=== PATIENT | male | born 1940 | race Caucasian/White ===

== ENCOUNTER 2018-01-02 23:12 | Emergency (ER) | payer MEDICARE, OTHER, SELFPAY ==
[2018-01-02 23:15] VITALS: BP 126/68; PULSE 48; RESP 16; TEMP 36.3; O2SAT 99; BMI 23.8
--- NOTE | 2018-01-02 23:44 | ED.DCSUM_ITS ---
- ER Visit Summary Date of Service: 01/02/18 Chief Complaint: Rash History of Present Illness: The patient is a 77 M who presents with rash located on thighs, legs, groin and pubic region. He states is slightly pruritic. He denies history of being in a hot tub. He states he has been in the hot sun. He denies fever, chills night sweats. He does have history of type 2 diabetes. He denies prior history of such rash. He has actually no other complaints please read written note. Physical Examination: Vital signs are unremarkable. Patient appears no distress. HEENT is grossly unremarkable. Heart is regular. There is no respiratory distress. Patient has rash consistent with folliculitis. Test Results: None are indicated Emergency Department Course and Treatment: Patient was informed that he has an infection of his hair follicles. Since it is involving both lower extremities groin and pubic area he was treated with dicloxacillin for strep and staph coverage. Treatment Plan: Prescription for dicloxacillin Disposition: Discharged to home with appropriate home-going instructions Impression: Folliculitis This note was generated with [employer] dictation software. It may contain incorrect words, spelling, and punctuation that were not noted in review of the chart prior to signing ED Disposition - Plan for ED Patient: Disposition: Home or Assisted Living Chief Complaint: Rash Instructions: ED Folliculitis Prescriptions: Dicloxacillin Sodium 500 mg PO Q6H 7 Days cap Referrals: NOT,DEFINED [Primary Care Provider] -
[2018-01-03 00:12] VITALS: PULSE 61
== END 2018-01-03 00:13 | disposition home or self-care (01) ==
PROVIDERS: Emergency Provider Emergency Medicine
DX: L73.9 Follicular disorder, unspecified (principal); E11.9 Type 2 diabetes mellitus without complications; Z79.84 Long term (current) use of oral hypoglycemic drugs; Z79.82 Long term (current) use of aspirin; Z79.899 Other long term (current) drug therapy; Z87.891 Personal history of nicotine dependence
CPT/HCPCS: 99283

== ENCOUNTER 2018-04-08 11:35 | Emergency (ER) | payer MEDICARE, OTHER, SELFPAY ==
[2018-04-08 11:36] VITALS: BP 133/60; PULSE 45; RESP 12; TEMP 36.4; O2SAT 98; BMI 23.9
--- NOTE | 2018-04-08 12:10 | RAD_ITS ---
STUDY: X-RAY - LEFT FEMUR REASON FOR STUDY: Pain, status post near fall on Sunday. TECHNIQUE: Radiological exam, femur, minimum 2 views COMPARISON: None. FINDINGS: Normal visualized femur. There is chondrocalcinosis in the left hip and left knee. There is vascular calcification. RAD/Femur Min 2 Views IMPRESSION: Chondrocalcinosis. No demonstrated fracture. Electronically Signed: Nick Bowden MD at 13:06 EDT Tel , Service support ,
--- NOTE | 2018-04-08 13:26 | ED.DCSUM_ITS ---
- ER Visit Summary Date of Service: 04/08/18 Chief Complaint: Left thigh pain History of Present Illness: The patient is a 77 M who had a near fall last evening. Patient states that he pulled a tree over. He got out of his vehicle with a hatchet to cut the roots and tripped. He had a near fall and felt a pulling sensation in the posterior left thigh. He denies pain radiating down the lower part of the leg. He denies paresthesias. Physical Examination: Vital signs gross unremarkable. He is bradycardic with a heart rate of 45. Head and neck examination unremarkable. Heart is regular rate and rhythm. Lung sounds are clear. Abdomen is soft nontender. Lower external examination was muscular tenderness in the posterior proximal left thigh. He does have increased pain with flexion extension of the hip but very minimal to no pain with logroll. There is no tenderness over the knee or lower leg. He has strong distal pulses. Test Results: Left femur x-rays show no fracture. There is evidence of chondrocalcinosis. Emergency Department Course and Treatment: Patient declined anything for pain here. Dayday wrap was applied around the leg. I have discussed with the patient I believe he has a muscle strain or tear. Treatment Plan: [] Disposition: Discharge Impression: Muscle strain left thigh This note was generated with [employer] dictation software. It may contain incorrect words, spelling, and punctuation that were not noted in review of the chart prior to signing ED Disposition - Plan for ED Patient: Disposition: Home or Assisted Living Chief Complaint: Lower Extremity Injury Instructions: ED Strain Muscle Ext Referrals: Jude Ribeiro MD [NON-STAFF] -
[2018-04-08 13:42] VITALS: BP 140/74; PULSE 50; RESP 16; O2SAT 97
== END 2018-04-08 13:49 | disposition home or self-care (01) ==
PROVIDERS: Emergency Provider Emergency Medicine
DX: S76.912A Strain of unspecified muscles, fascia and tendons at thigh level, left thigh, initial encounter (principal); W18.49XA Other slipping, tripping and stumbling without falling, initial encounter; Y93.89 Activity, other specified; Y92.9 Unspecified place or not applicable; Y99.9 Unspecified external cause status; G47.33 Obstructive sleep apnea (adult) (pediatric); I25.2 Old myocardial infarction; Z87.891 Personal history of nicotine dependence; Z79.84 Long term (current) use of oral hypoglycemic drugs; Z79.82 Long term (current) use of aspirin; Z79.899 Other long term (current) drug therapy
CPT/HCPCS: 73552; 99282

== ENCOUNTER → 2020-06-24 13:32 | Outpatient (CLI) | payer MEDICARE, OTHER, SELFPAY ==
[2020-06-09 08:48] VITALS: BMI 23.6
== END ==
PROVIDERS: PCP Family Medicine; Visit Provider Nurse Practitioner Adult Health
DX: N40.3 Nodular prostate with lower urinary tract symptoms (principal)
CPT/HCPCS: 36415; 84153

== ENCOUNTER → 2020-07-26 | Outpatient (CLI) | payer MEDICARE, SELFPAY ==
[2020-06-09 08:48] VITALS: BMI 23.6
--- NOTE | 2020-07-26 08:00 | PROSB_PTH ---
PATIENT: PHILIP KEVIN LOC: [facility] U#:[id number] AGE/SX: 79/M ROOM: RE07/26/[address]: Dr. Ahsan Dai MD : [id number] BED: DIS: 07/26/2020 SPEC #: [id number] RECD: 07/26/20 12:24 STATUS: ASHLY FELICIANO #: [id number] MARTÍN: 07/26/20 08:[address]: Ahsan Dai DEPT: SURGICAL PATHOLOGY RECD BY: Aurelia Redmond ENTERED: 07/26/20 13:10 SP TYPE: PROST BX OTHR DR: Dr. Jude Ribeiro MD Tissues: A - Prostate, NOS B - PROSTATE BIOPSY Procedures: Surgery Specimen Level IV HEADER OPERATION: Prostate biopsy PRE-OP DIAGNOSIS: Elevated PSA TISSUE SUBMITTED: A - Right mid, B - Right base MICROSCOPIC DIAGNOSIS A. Prostate, right mid, core biopsy: Adenocarcinoma. [place] grade: 9 (5+4) Cores involved: 2 out of 2 cores Tissue involved: 85% Greatest tumor length: 10 mm Perineural invasion: Present, multifocal. B. Prostate, right base, core biopsy: Adenocarcinoma. [place] grade: 9 (4+5) Cores involved: 3 out of 3 cores Tissue involved: 95% Greatest tumor length: 12.5 mm Perineural invasion: Present, multifocal. AM:remy 07/27/2020 COMMENT Case has been reviewed in consultation with Dr. Lamas who concurs with the above diagnosis. IDC:SJ MICROSCOPIC DESCRIPTION Slides are reviewed. GROSS DESCRIPTION A - Received in fixative is one container labeled with the patient's name and designated right mid prostate. The specimen consists of two elongated fragments of light padilla-white soft tissue measuring 1 and 1.6 cm in length and 0.1 cm in diameter. The specimen is totally submitted in one cassette. B - Received in fixative is one container labeled with the patient's name and designated right base prostate. The specimen consists of three elongated fragments of light padilla-white soft tissue measuring 0.7 to 1.5 cm in length and 0.1 cm in diameter. The specimen is totally submitted in one cassette. / EMELI:remy 07/26/20 TC:0 CPT: G0146
== END | disposition home or self-care (01) ==
LOC: LABSPEC 13:06
PROVIDERS: PCP Family Medicine; Referring Provider Urology; Visit Provider Urology
DX: R97.20 Elevated prostate specific antigen [PSA] (principal)
CPT/HCPCS: 88305

== ENCOUNTER → 2020-08-03 16:08 | Outpatient (CLI) | payer MEDICARE, SELFPAY ==
[2020-06-09 08:48] VITALS: BMI 23.6
--- NOTE | 2020-08-03 16:19 | CT_ITS ---
STUDY: CT ABDOMEN AND PELVIS WITH CONTRAST REASON FOR EXAM: Male, 79 years old. NEW DX PROSTATE CA -- DIFFICULTY URINATING X2 YEARS -- SURG-HERNIA -- HX- WI W/ ANGIOPLASTY RADIATION DOSAGE (If Supplied By Facility): CTDIvol = ( 18.71 ) mGy, DLP = ( 668.02 ) mGycm TECHNIQUE: Transaxial images were obtained from the dome of the diaphragm to the symphysis pubis without oral contrast. IV 100mL Isovue-370 was administered. Sagittal and coronal images were reconstructed. Individualized dose optimization techniques were used for this CT. COMPARISON: None. FINDINGS: The visualized lung bases are unremarkable. The visualized portions of the heart are within normal limits. Subcentimeter cyst in the posterior segment the right lobe of the liver. Normal gallbladder and extrahepatic biliary system. Normal spleen. Normal pancreas. Normal bilateral adrenal glands. Normal right kidney. Normal left kidney. Normal visualized stomach. Normal small intestine. Normal colon. There is non-visualization of the appendix. There is diffuse atherosclerotic calcification of the abdominal aorta, without a demonstrated aneurysm. Normal inferior vena cava. Normal retroperitoneum. Normal urinary bladder. Normal abdominal wall. Moderate levoscoliosis of the lumbar spine with degenerative disc disease. CT/Abdomen/Pelvis WITH Contrast IMPRESSION: Normal enhanced CT of the abdomen and pelvis. Electronically Signed: Evans Kelley MD at 17:24 EST Tel , Service support ,
[2020-08-03 16:51] LABS: CREATININE FINGERSTICK 1.2 mg/dL (0.70-1.30)
== END ==
PROVIDERS: PCP Family Medicine; Referring Provider Urology; Visit Provider Urology
DX: C61 Malignant neoplasm of prostate (principal)
CPT/HCPCS: 74177; Q9967

== ENCOUNTER → 2020-08-06 09:59 | Outpatient (CLI) | payer MEDICARE, SELFPAY ==
[2020-06-09 08:48] VITALS: BMI 23.6
--- NOTE | 2020-08-06 10:06 | NM_ITS ---
CLINICAL: 79-year-old male with reported history of carcinoma of the prostate. WHOLE BODY 99m Tc MDP RADIONUCLIDE BONE SCINTIGRAPHY COMPARISON: CT of the abdomen-pelvis report 08/03/2020 FINDINGS: Following the intravenous administration of 26.0 mCi of 99m Tc MDP, whole body bone images reveal: 1. Increased radiopharmaceutical concentration is identified in the acromioclavicular, sternoclavicular and glenohumeral compartments of both shoulders, elbows bilaterally, fourth-fifth lumbar vertebra posteriorly on the right, 10th thoracic vertebra posteriorly on the right, the right wrist, knees bilaterally, the left hip involving the superior anterior acetabulum. 2. The remaining skeletal structures are scintigraphically unremarkable with normal-appearing renal images and urinary bladder activity identified. NM/Bone Scan Whole Body IMPRESSION: 1. The increase in radiopharmaceutical concentration identified in the bilateral shoulders, right and left elbows, thoracic and lumbar spine, right wrist, both knees, the left hip is most consistent with degenerative arthritis. 2. There is no definitive typical scintigraphic evidence of diffuse axial skeletal metastatic disease on the current examination. Electronically Signed: Evans Senior DO at 8:20 EST Tel , Service support ,
== END ==
PROVIDERS: PCP Family Medicine; Referring Provider Urology; Visit Provider Urology
DX: C61 Malignant neoplasm of prostate (principal)
CPT/HCPCS: 78306

== ENCOUNTER 2020-10-06 10:25 | Inpatient (IN) | payer MEDICARE, SELFPAY ==
[2020-06-09 08:48] VITALS: BMI 23.6
[2020-10-06] VITALS (24 sets, daily range): BP systolic 112–178; BP diastolic 60–87; PULSE 42–85; RESP 16–18; TEMP 36.3–36.7; O2SAT 94–100; BMI 27.0; BMI 27.2; BMI 27.3
[2020-10-06 06:35] LABS: Bedside Glucose 127 mg/dL (70-110)
[2020-10-06] MEDS: Lactated Ringers 1,000 ML 100 ML IV (06:45)
[2020-10-06] MEDS: Fleet Enema 1 ML RC (07:07)
--- NOTE | 2020-10-06 07:24 | PCM.HP.STD ---
Problem List (1) Prostate cancer Status: Acute History of Present Illness Date of Admission: 10/06/20 Chief Complaint: Prostate cancer The patient is a 79 year old male with a history of prostate cancer presents today for placement of gold markers and spacer gel organ at risk matrix. He has high risk disease but no signs of metastatic disease. Past Medical History Medical History: Medical History (Last Updated 06/09/20 @ 08:47 by Kisha Garcia) Nocturia (Acute) R35.1 Right hydrocele (Acute) N43.3 Right groin pain (Acute) R10.31 Urinary incontinence (Acute) R32 Abdominal pain R10.9 Arthritis M19.90 Asthma J45.909 Diabetes E11.9 Heart attack I21.9 Sleep apnea G47.30 Stroke I63.9 Allergies clopidogrel bisulfate [From Plavix] Allergy (Verified 10/06/20 06:32) HEMATOCHEZIA atorvastatin Adverse Reaction (Verified 10/06/20 06:32) TIRED RED YEAST RICE Adverse Reaction (Uncoded 10/06/20 06:32) LEG PAIN Home Medications: Ambulatory Orders Medication Instructions Recorded metFORMIN (XR) [Glucophage Xr] 500 mg PO BIDCM 05/28/13 Relive Supplement 1 ea PO BID 12/26/16 Bicalutamide 50 mg PO DAILY 09/29/20 Dutasteride 0.5 mg PO DAILY 09/29/20 Tamsulosin HCl 0.4 mg PO BID 09/29/20 Surgical History: Surgical History (Last Updated 06/09/20 @ 08:48 by Kisha Garcia) Status post inguinal hernia repair Z98.890, Z87.19 x 6 RIH x 2 or 3 per pt Surgical History: no surgical history Smoking Status: Former smoker Review of Systems Constitutional: Denies: Chills, Fever, Weight Change HEENT: Denies: Head Aches, Sinus Congestion, Sinus Drainage Cardiovascular: Denies: Chest Pain, Palpitations Respiratory: Denies: Cough, Shortness of breath at rest, Sputum production Gastrointestinal: Denies: Abdominal Pain, Nausea, Vomiting Genitourinary: Denies: Dysuria Musculoskeletal: Denies: Joint Pain, Joint Tenderness Skin: Denies: Rash, Wounds Neurological: Denies: Numbness, Tingling, Focal weakness Psychiatric: Denies: Anxiety, Depression, Homicidal Ideations, Suicidal Ideations Hematologic/ Lymphatic: Denies: Easy Bruising, Easy Bleeding VTE Information - Inpt Only VTE Present on Admission: No - Physical Exam Vitals/I&O's: Vital Signs Temp Pulse Resp BP Pulse Ox 97.9 F 85 16 133/60 H 100 10/06/20 06:35 10/06/20 06:35 10/06/20 06:35 10/06/20 06:35 10/06/20 06:35 Oxygen Delivery Method Room Air Weight: 71.5 kg Body Mass Index (BMI) 27.0 Finger Stick Blood Glucose 152 General: Alert, Oriented x3, Cooperative HEENT: Atraumatic, PERRLA, EOMI, Normocephalic Neck: Supple, No JVD, Negative Carotid Bruits Lungs: Clear to auscultation, Normal air movement Cardiovascular: Regular rate, No murmurs Abdomen: Bowel Sounds Present, Soft, Non Tender Extremities: No edema, Capillary Refill Less than 3 Seconds Skin: No rashes, No breakdown Musculoskeletal: No Tenderness to Palpation of Joints or Extremities Neurological: Cranial nerves II-XII grossly intact Psych/Mental Status: Normal Affect, Appropriate Microbiology Past 72 Hours 10/05/20 11:20 Interface Orders SARS-CoV-2 Antigen (Rapid) - Final Laboratory Results 10/06/20 06:28: POC Glucose 127 H Current Medications Cefazolin Sodium 2 gm/ Sodium (Chloride) 110 mls @ 150 mls/hr IV PREOP ONE Stop: 10/06/20 07:43 Lactated Ringer's () 1,000 mls @ 100 mls/hr IV .Q10H TOBY Last Admin: 10/06/20 06:45 Dose: 100 mls/hr Documented by: Assessment/Plan All Active Problems (Last Updated 06/09/20 @ 08:47 by Kisha Garcia) Prostate cancer (Acute) Nocturia (Acute) Right hydrocele (Acute) Right groin pain (Acute) Urinary incontinence (Acute) Plan to proceed with placement of gold markers and spacer gel matrix.
--- NOTE | 2020-10-06 07:26 | DCINST_ITS ---
Discharge Diet: Light diet - advance as tolerated Discharge Activity: Return to Normal Activity Call your doctor if your incision/area has: Sudden Increased Bleeding Allergies/Adverse Reactions: Allergies clopidogrel bisulfate [From Plavix] Allergy (Verified 10/06/20 06:32) HEMATOCHEZIA atorvastatin Adverse Reaction (Verified 10/06/20 06:32) TIRED RED YEAST RICE Adverse Reaction (Uncoded 10/06/20 06:32) LEG PAIN Medications to take at Discharge metFORMIN (XR) [Glucophage Xr] 500 mg PO BIDCM 05/28/13 Relive Supplement 1 ea PO BID 12/26/16 Bicalutamide 50 mg PO DAILY 09/29/20 Dutasteride 0.5 mg PO DAILY 09/29/20 Tamsulosin HCl 0.4 mg PO BID 09/29/20 Primary Care Physician: Jude Ribeiro MD [Primary Care Provider] - Test Results: Test results from this visit will be discussed in further detail at your follow- up appointment, if applicable. Please Follow Up With: Ahsan Dai MD When: in 2 weeks, please call to make an appointment.
[2020-10-06] MEDS: Cefazolin 2 GM in 0.9% Normal Saline 100 ML IV (07:42)
--- NOTE | 2020-10-06 08:01 | OP.PCM_ITS ---
Problem List (1) Prostate cancer Status: Acute Report of Operation Date of Procedure: 10/06/20 Pre-Operative Diagnosis: Prostate cancer Post-Operative Diagnosis: Same Surgery/Procedure Performed:: Surgery aborted due to cardiac change Description of Surgical Findings:: 79-year-old male was brought back to the operating room for placement of gold markers and also spacer gel matrix were planning for radiation treatment he was put on the operating table underwent general anesthesia and then I was setting up the patient in the legs in stirrups and as I was putting the ultrasound probe in the rectum again ready to perform ultrasonography and then the SOFA BACK UPHOLSTERER called out for help and the patient went flatline for a little bit on the EKG lead medially was given medication by the anesthesiologist and rhythm came back blood pressure was stable but because of the sudden change in cardiac status the case was immediately aborted and he is going to be awakened from anesthesia taken back to PACU for further cardiac evaluation probably will place gold markers in the office to avoid anesthesia again he may have to go without the spacer gel matrix. Type of Anesthesia:: General
--- NOTE | 2020-10-06 08:20 | EKG12_ITS ---
Test Reason : Blood Pressure : / mmHG Vent. Rate : 045 BPM Atrial Rate : 045 BPM P-R Int : 200 ms QRS Dur : 114 ms QT Int : 536 ms P-R-T Axes : 058 -02 051 degrees QTc Int : 463 ms Sinus bradycardia Otherwise normal ECG When compared with ECG of 26-DEC-2016 09:20, QT has lengthened Confirmed by LAUREANO KRUEGER, ELADIO ([id number]), city editor GRACE MANDUJANO ([id number]) on 10/12/2020 10:57:46 AM Referred By: Berry Darnell Confirmed By:ELADIO TINSLEY MD
[2020-10-06 08:40] LABS: Hemoglobin 12.5 g/dL (13.0-16.5); Mean Corp Hgb Conc 35.7 g/dL (32-36); Platelet Count 158 K/mm3 (150-450); RBC Distribution Width CV 11.6 % (11.6-14.6); RBC Distribution Width SD 41.9 fl (35.1-43.9); Red Blood Count 3.57 M/mm3 (4.6-6.2); White Blood Count 3.9 K/mm3 (4.4-11.0)
[2020-10-06 10:03] LABS: Anion Gap 5 (5-15); BUN 16 mg/dL (7-18); BUN/Creat Ratio 14.8 RATIO (10-20); Calcium,Total 8.9 mg/dL (8.5-10.1); Chloride 106 mmol/L (98-107); Creatinine, Serum 1.08 mg/dL (0.70-1.30); EST Glomerular Filtration Rate 70 mL/min (>60); Est Glom Filt Rate - Afr Amer 84 mL/min (>60); Estimated Creatinine Clearance 45.68 ml/min; Glucose 130 mg/dL (74-106); Potassium 3.7 mmol/L (3.5-5.1); Sodium Level 140 mmol/L (136-145)
[2020-10-06] MEDS: Lactated Ringers 1,000 ML 75 ML IV ×2 (10:28→21:33)
--- NOTE | 2020-10-06 10:33 | ECHOCS_ITS ---
Reason For Study: Arrhythmia Procedure This was a 2D Doppler, Color Flow transthoracic echocardiogram. Contrast injection was performed. Exam performed portable in patient room. Left Ventricle Normal LV size. Left ventricular systolic function is normal. The estimated ejection fraction is 55 %. Mild to moderate segmental systolic dysfunction (see wall motion). Stage 1 diastolic dysfunction. Logan : Severely Hypokinetic. Mid-Anterior : Hypokinetic. Right Ventricle Normal RV size. Normal systolic function. Atria Normal left atrium. Normal right atrium. Mitral Valve There is moderate mitral annular calcification. Mild (1+) eccentric mitral valve insufficiency. Tricuspid Valve Normal tricuspid valve. Mild to moderate (1-2+) tricuspid valve insufficiency. Pulmonary artery systolic pressure is 33 mmHg. Aortic Valve Trisinus/trileaflet aortic valve. Moderate focal aortic valve calcification. Pulmonic Valve Normal pulmonic valve. Great Vessels Calcified aortic root. The pulmonary artery is normal size. Normal inferior vena cava. Pericardium/Pleural No pericardial effusion. Medication Diluted definity 3ml given slow IV push to enhance endocardial definition. MMode/2D Measurements & Calculations LVIDd: 4.6 cm IVSd: 1.2 cm Ao root diam: 2.8 cm LVIDs: 2.7 cm LVPWd: 0.95 cm RVDd: 3.2 cm FS: 42.1 % LAV(MOD-bp): 39.6 ml LVAd ap4: 22.7 cm2 SV(MOD-sp4): 42.9 ml LAV(MOD-bp) Indexed: 22.3 ml/m2 EDV(MOD-sp4): 63.1 ml LAV(MOD-sp2): 35.3 ml EDV(sp4-el): 66.2 ml LAV(MOD-sp4): 35.3 ml LVAs ap4: 11.8 cm2 ESV(MOD-sp4): 20.2 ml ESV(sp4-el): 20.9 ml EF(MOD-sp4): 68.0 % EF(sp4-el): 68.4 % SV(sp4-el): 45.3 ml LA A4 area: 14.3 cm2 LA dimension(2D): 3.9 cm RA A4 area: 14.8 cm2 Doppler Measurements & Calculations MV E max ronnie: 85.2 cm/sec Lat Peak E' Ronnie: 5.4 cm/sec Med Peak E' Ronnie: 6.3 cm/sec MV A max ronnie: 126.7 cm/sec E/E' lat: 15.7 E/E' med: 13.5 MV E/A: 0.67 Ao V2 max: 121.5 cm/sec LV V1 max: 87.9 cm/sec PA V2 max: 71.2 cm/sec Ao max P.9 mmHg LV V1 max P.1 mmHg Ao V2 mean: 84.9 cm/sec Ao mean P.1 mmHg Ao V2 VTI: 32.4 cm TR max ronnie: 266.4 cm/sec TR max P.4 mmHg Interpretation Summary Normal LV size. Left ventricular systolic function is normal. The estimated ejection fraction is 55 %. Logan : Severely Hypokinetic. Mid-Anterior : Hypokinetic Mild to moderate segmental systolic dysfunction (see wall motion). Stage 1 diastolic dysfunction. Contrast injection was performed. Ordering Physician: Berry Darnell Referring Physician: Maximus Ribeiro Performed By: Tonya Walker, UTE, RVT
[2020-10-06 12:51] LABS: Magnesium 2.1 mg/dL (1.6-2.6)
--- NOTE | 2020-10-06 13:53 | CON.PCM_ITS ---
Reason for Consult Date of Consultation: 10/06/20 Reason for Consultation: Slow heart rate History of Present Illness: The patient is a 79 year old M with no previous cardiac history who came in today for a prostate procedure. Patient was noted to have significant bradycardia arrhythmia as well as pauses. He was noted to have at least a 4- second pause. He denies any chest pain or shortness of breath or paroxysmal nocturnal dyspnea or pedal edema and no syncopal episode. I was made aware of the above by the hospitalist. Upon further questioning the patient appears to be completely asymptomatic. EKG demonstrated sinus bradycardia with a right bundle branch block. He was admitted to the progressive care unit and his procedure was canceled and cardiology was asked to see him urgently. [] Past Medical History Allergies/Adverse Reactions: Allergies clopidogrel bisulfate [From Plavix] Allergy (Verified 10/06/20 06:32) HEMATOCHEZIA atorvastatin Adverse Reaction (Verified 10/06/20 06:32) TIRED RED YEAST RICE Adverse Reaction (Uncoded 10/06/20 06:32) LEG PAIN Home Medications: Ambulatory Orders Medication Instructions Recorded metFORMIN (XR) [Glucophage Xr] 500 mg PO BIDCM 05/28/13 Relive Supplement 1 ea PO BID 12/26/16 Bicalutamide 50 mg PO DAILY 09/29/20 Dutasteride 0.5 mg PO DAILY 09/29/20 Tamsulosin HCl 0.4 mg PO BID 09/29/20 Surgical History: no surgical history Lives: Alone Smoking Status: Former smoker Alcohol: None Drugs: None Review of Systems - Review of Systems General: Denies: Fever, Night Sweats, Fatigue HEENT: Denies: Vision Change Cardiovascular: Denies: Chest Discomfort, Shortness of Breath, Orthopnea, PND, Peripheral Edema, Palpitations, Lightheadedness, Dizziness, Near Syncope, Syncope Respiratory: Denies: Cough, Sputum Production, Hemoptysis Gastrointestinal: Denies: Hematemesis, Hematochezia, Melena Genitourinary: Denies: Dysuria, Hematuria Muscoloskeletal: Denies: Myalgias Skin: Denies: Rash Neurological: Denies: Dizziness Psychiatric: Denies: Anxiety Endocrine: Denies: Unexplained Weight Loss Hematologic/ Lymphatic: Denies: Anemia Subjectve: Patient seen and evaluated Objective: Vital Signs Temp Pulse Resp BP Pulse Ox 97.5 F L 43 L 18 138/61 H 97 10/06/20 13:20 10/06/20 13:20 10/06/20 13:20 10/06/20 13:20 10/06/20 13:20 Oxygen Delivery Method Room Air Weight: 158 lb 12.8 oz Body Mass Index (BMI) 27.2 Finger Stick Blood Glucose 152 Intake and Output for Last 24 Hours 10/04/20 10/05/20 10/06/20 23:59 23:59 23:59 Intake Total 721.67 / 721.67 Balance 721.67 / 721.67 General: Awake, Alert, Oriented x 3 HEENT: PERRL, EOMI, Sclera Non Icteric Neck: Supple, Good ROM, No Lymph Node Enlargement Lungs: Clear to auscultation Cardiovascular: Regular Rhythm, Normal S1, Normal S2, No Murmurs, No Rubs, No Gallops Vascular: No Carotid Bruits, Normal Femoral Pulses, Normal Radial Pulses, Normal Dorsalis Pedal Pulse, Normal Posterior Tibial Pulses Abdomen: Bowel Sounds Present, Soft, Non Tender, No HSM, No Organomegaly Extremities: No Cyanosis, No Clubbing, No edema Musculoskeletal: No Erythema Skin: No Rashes Neurological: No Focal Motor or Sensory Deficit 10/06/20 08:31: WBC 3.9 L, RBC 3.57 L, Hgb 12.5 L, Hct 35.0 L, MCV 98.0 H, MCH 35.0 H, MCHC 35.7, Plt Count 158, MPV 9.0 10/06/20 08:31: Sodium 140, Potassium 3.7, Chloride 106, Carbon Dioxide 29.0, Anion Gap 5, BUN 16, Creatinine 1.08, Est GFR (MDRD) Af Amer 84, Est GFR (MDRD) Non-Af 70, BUN/Creatinine Ratio 14.8, Glucose 130 H, Calcium 8.9, Troponin I 0.024 10/06/20 08:31: Magnesium 2.1 Rhythm: EKG:Sinus bradycardia ECHO: Preserved left ventricular systolic function. Stress Test: Cardiac Cath: PCI: CT Surgery: Holter monitor: EPS: PPM: CXR: Chest CT Scan: Assessment/Plan 1. Minimally symptomatic cardiac pauses with asystole * Patient presents for an unrelated procedure and is noted to have periods of significant bradycardia arrhythmia. He appears to have significant chronotropic incompetence. At this time I would recommend that we proceed with a permanent pacemaker implantation. The risks benefits and alternatives have been explained to him he understands and agrees to proceed. His son was also available for the discussion. * * Above communicated with the hospitalist * * Thank you for allowing me to participate in the care of your patient. Please don't hesitate to call if any issues arise.
--- NOTE | 2020-10-06 15:30 | CL.IE_ITS ---
Patient: PHILIP KEVIN Study Date: 10/06/2020 Performing: Alcon Grajeda MD : 1940 Age: 79 Gender: male PROCEDURES PERFORMED [id number] PACER INSERT+DUAL LEADS INDICATIONS Sinus Arrest Sinus Bradycardia Sinoatrial node dysfunction/Sick sinus syndrome PROCEDURE DETAILS The patient was brought to the Catheterization Lab in the postabsorptive nonsedated state. Infor med consent was obtained prior to the procedure. Local anesthetic was given subcutaneously to the le ft upper chest area with Lidocaine 2%. Incision was made to the left upper chest. Access was achieved and a guidewire was advanced into the left subclavian vein. PPM ventricular lead was inserted / posi tioned to right ventricular septal wall. PPM ventricular lead testing performed. PPM ventricular lead testing performed. PPM atrial lead was inserted / positioned to the right atrial appendage. PPM atri al lead testing performed. The Atrial lead sutured in place with 3-0 Silk. The Ventricular PM lead fofana tured in place with 3-0 Silk. Device pocket was irrigated with antibiotic- Bacitracin. PPM generator was attached to the lead(s) and inserted into the pocket. PPM generator was then interrogated by the senior db2 systems programmer. Subcutaneous closure was completed with 3-0 Vicryl. Skin closure was completed with 4-0 Vicryl. Steri-strips applied to Lt chest area. The patient tolerated the procedure well. Estimated Blood Loss: < 10 mls IMPLANTED / EX-PLANTED DEVICES IMPLANTED DEVICE(S): PPM Ventricular lead - Grommet Machine Operator: Medtronic, Model # CapSureFix Novus MRI SureScan 5076-52 , Seria l # [id number] PPM Atrial lead - Grommet Machine Operator: Medtronic, Model # CapSureFix Novus MRI SureScan 5076-45 , Serial # [id number] PPM Generator - Grommet Machine Operator: Medtronic, Model # Radha XT DR MRI SureScan [id number] , Serial # [id number] DEVICE PARAMETERS ATRIAL LEAD PARAMETERS: P wave- 1.1 (mV) Current- 1.6 (mA) threshold- 0.9 (V) impedence- 807 (OHMS) VENTRICULAR LEAD PARAMETERS: R wave- 4.3 (mV) Current- 1.1 (mA) threshold- 0.9 (V) impedence- 787 (OHMS) DEVICE PARAMETERS: Mode- DDDR Lower rate- 60 Upper rate- 130 CONCLUSIONS / RECOMMENDATIONS Device Conclusions: Successful implantation of a dual chamber pacemaker Device Recommendations: Follow up with Primary Care Physician PROCEDURE MEDICATIONS Versed 1 mg IV Fentanyl 25 mcg IV Oxygen: 2 L/min via nasal cannula Antibiotic given in appropriate timeframe. Ancef 2 Gm IV 10/06/2020 13:40:56 Benadryl 25 mg IV @ 10/06/2020 14:03:43 Solu-cortef 100 mg IV 10/06/2020 14:09:37 Signed By Alcon Grajeda MD On 10/06/2020 15:28:58 Alcon Grajeda MD
--- NOTE | 2020-10-06 16:14 | CHAPLAIN ---
Type of Pastoral Visit ___ Initial Visit ___ Follow-up Visit ___ On-call Visit ___ General Patient Visit ___ Spiritual Assessment ___ Family Conference ___ Bereavement ___ Rapid Response ___ Code Blue ___ Other (describe below) Pastoral Care Referral From ___ Patient ___ Family ___ Nurse ___ Physician ___ French Comber ___ Raw Juice Weigher ___ Other (describe below) Sacrament/Intervention ___ Active listening ___ Anointing ___ Latter Day ___ Bereavement ___ Communion ___ Jaja exploration ___ ___ Life review ___ Prayer ___ Reconciliation ___ Sacrament of Sick ___ Supportive presence ___ Wedding ___ Other (describe below) Pastoral Comments two attempts to visit; patient and bed are out of the room; left a calling card
--- NOTE | 2020-10-06 18:55 | HP.PCM_ITS ---
Problem List (1) Bradycardia Status: Acute History of Present Illness Date of Admission: 10/06/20 Chief Complaint: Bradycardia The patient is a 79 year old M who was seen in PACU today after his surgical procedure was canceled due to severe bradycardia. There was also evidence of asystole which lasted approximately 3 to 4 seconds during the time the patient was on the operating table-he was due to undergo mapping for outpatient radiation treatment for prostate cancer. I saw the patient in PACU and he was alert and had no complaints of any chest pain or shortness of breath. According to the patient, in 2012 he underwent an angioplasty after a heart attack while he was visiting in [facility]. According to the patient's son who I talked with by phone, the patient was told at that time that he needed a pacemaker but he refused insertion. Patient also told me that he was given several medications to take following this hospitalization but he decided that it was not in his best interest to take these medications and refused to take them. Patient was admitted directly to PCU, during his time on PCU he continued to have severe bradycardia with rates down into the 20s with periods of asystole lasting several seconds. Patient was asymptomatic during these episodes. I contacted cardiology and discussed the case with cardiology and they saw the patient around noon time today and early afternoon today a single lead pacemaker was inserted. Patient is doing well postop. 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/06/20) PPM Ventricular lead - Radiology Practitioner Assistant: Medtronic, Model # CapSureFix Novus MRI SureScan 5076-52 , Serial # [id number];PPM Atrial lead - Radiology Practitioner Assistant: Medtronic, Model # CapSureFix Novus MRI SureScan 5076-45 , Serial # [id number]; PPM Generator - Radiology Practitioner Assistant: Medtronic, Model # [place] XT DR MRI SureScan [id number] , Serial # [id number] Medical History: Medical History (Last Updated 10/06/20 @ 16:10 by Yany Trujillo) Sick sinus syndrome (Acute) I49.5 Nocturia (Acute) R35.1 Right hydrocele (Acute) N43.3 Right groin pain (Acute) R10.31 Urinary incontinence (Acute) R32 Abdominal pain R10.9 Arthritis M19.90 Asthma J45.909 Diabetes E11.9 Heart attack I21.9 Sleep apnea G47.30 Stroke I63.9 Allergies cefazolin [From Ancef] Allergy (Verified 10/06/20 15:46) Rash clopidogrel bisulfate [From Plavix] Allergy (Verified 10/06/20 06:32) HEMATOCHEZIA atorvastatin Adverse Reaction (Verified 10/06/20 06:32) TIRED RED YEAST RICE Adverse Reaction (Uncoded 10/06/20 06:32) LEG PAIN Home Medications: Ambulatory Orders Medication Instructions Recorded metFORMIN (XR) [Glucophage Xr] 500 mg PO BIDCM 05/28/13 Relive Supplement 1 ea PO BID 12/26/16 Bicalutamide 50 mg PO DAILY 09/29/20 Dutasteride 0.5 mg PO DAILY 09/29/20 Tamsulosin HCl 0.4 mg PO BID 09/29/20 Surgical History: Surgical History (Last Updated 10/06/20 @ 16:07 by Yany Trujillo) Cardiac pacemaker in situ (Chronic) Onset Date: 10/06/20 Z95.0 PPM Ventricular lead - Radiology Practitioner Assistant: Medtronic, Model # CapSureFix Novus MRI SureScan 5076-52 , Serial # [id number];PPM Atrial lead - Radiology Practitioner Assistant: Medtronic, Model # CapSureFix Novus MRI SureScan 5076-45 , Serial # [id number]; PPM Generator - Radiology Practitioner Assistant: Medtronic, Model # Radha XT DR MRI SureScan [id number] , Serial # [id number] Status post inguinal hernia repair Z98.890, Z87.19 x 6 RIH x 2 or 3 per pt Surgical History: cataract, herniorrhaphy, - - Angioplasty 2012 Lives: Alone Smoking Status: Former smoker Alcohol: None Drugs: None - *Family History Maternal History Items: Cancer - Cancer of the uterus Paternal History Items: Cancer - Prostate cancer Review of Systems Constitutional: Reports: Fatigue. Denies: Anorexia, Chills, Fever, Night Sweats, Malaise, Weakness, Weight Change Eyes: Denies: Cataracts, Conjunctivae Inflammation, Double vision, Drainage HEENT: Denies: Difficulty Swallowing, Dysphasia, Ear Pain, Eye Pain, Hearing Changes, Nasal bleeding, Nasal Congestion Cardiovascular: Denies: Chest Pain, Claudication, Chest Pressure, Chest Tightness, Edema, Palpitations Respiratory: Denies: Cough, Hemoptysis, Pleuritic Pain, Shortness of Breath, Shortness of breath at rest, Shortness of breath upon exertion Gastrointestinal: Denies: Abdominal Pain, Constipation, Diarrhea, Hematemesis, Hematochezia, Nausea, Melena, Vomiting Genitourinary: Denies: Dysuria, Frequency, Hematuria, Hesitancy, Urgency Musculoskeletal: Denies: Back Pain, Foot Pain, Hand Pain, Joint Pain, Joint stiffness, Joint swelling Skin: Denies: Dryness, Pruritis, Rash Neurological: Denies: Blurred vision, Double vision, Change in Speech, Slurred speech, Difficulty swallowing, Focal weakness, Headaches, Incoordination, Numbness, Tingling Psychiatric: Denies: Anxiety, Depression, Homicidal Ideations, Suicidal Ideations Endocrine: Denies: Change in Body Habitus, Heat/ Cold Intolerance, Polydipsia, Polyuria Hematologic/ Lymphatic: Denies: Adenopathy, Anemia, Easy Bruising, Easy Bleeding, Petechiae, Purpura VTE Information - Inpt Only VTE Present on Admission: No VTE Mechan Device Prophylaxis: None VTE Pharm Prophylaxis ordered?: Yes Patient Problems: Active and Suspected Problems (Last Updated 10/06/20 @ 16:10 by Yany Trujillo) Prostate cancer (Acute) - Physical Exam Vitals/I&O's: Vital Signs Temp Pulse Resp BP Pulse Ox 97.4 F L 60 18 130/63 H 95 10/06/20 15:45 10/06/20 18:45 10/06/20 18:45 10/06/20 18:45 10/06/20 18:45 Oxygen Delivery Method Room Air Weight: 72.03 kg Body Mass Index (BMI) 27.2 Finger Stick Blood Glucose 152 Intake and Output for Last 24 Hours 10/04/20 10/05/20 10/06/20 23:59 23:59 23:59 Intake Total 1441.67 / 1441.67 Balance 1441.67 / 1441.67 General: Alert, Oriented x3, Cooperative, No apparent distress, Well developed, Well nourished HEENT: Atraumatic, PERRLA, EOMI, Normocephalic Oral: Moist Mucosa Neck: Supple, No JVD, Negative Carotid Bruits Lungs: Clear to auscultation, Normal air movement, No rhonchi, No wheeze, No rales Cardiovascular: Regular rate - Patient exhibits paced rhythm status post pacemak er implantation today, No murmurs Abdomen: Bowel Sounds Present, Soft, Non Tender, Non-Distended Extremities: No clubbing, No cyanosis, No edema, Capillary Refill Less than 3 Seconds Skin: No rashes, No breakdown Musculoskeletal: No Tenderness to Palpation of Joints or Extremities Neurological: Cranial nerves II-XII grossly intact, Neuro grossly intact, Sensory exam intact to light touch and pain, Coordination normal Psych/Mental Status: Normal Affect, Appropriate, Alert and oriented to time, place, person, mood and affect Microbiology Past 72 Hours 10/05/20 11:20 Interface Orders SARS-CoV-2 Antigen (Rapid) - Final Laboratory Results 10/06/20 06:28: POC Glucose 127 H 10/06/20 08:31: WBC 3.9 L, RBC 3.57 L, Hgb 12.5 L, Hct 35.0 L, MCV 98.0 H, MCH 35.0 H, MCHC 35.7, RDW Std Deviation 41.9, RDW Coeff of Lobito 11.6, Plt Count 158, MPV 9.0 10/06/20 08:31: Sodium 140, Potassium 3.7, Chloride 106, Carbon Dioxide 29.0, Anion Gap 5, BUN 16, Creatinine 1.08, Estim Creat Clear Calc 45.68, Est GFR (MDRD) Af Amer 84, Est GFR (MDRD) Non-Af 70, BUN/Creatinine Ratio 14.8, Glucose 130 H, Calcium 8.9, Troponin I 0.024 10/06/20 08:31: Magnesium 2.1 Current Medications Acetaminophen (Acetaminophen 325 Mg Tablet) 650 mg PO Q4H PRN PRN PRN Reason: Pain Score 1-10 Atorvastatin Calcium (Atorvastatin Calcium 40 Mg Tablet) 40 mg PO QHS [facility] Atropine Sulfate (Atropine Sulfate 1 Mg/10 Ml Syringe) 1 mg IV PRN PRN PRN Reason: symptomatic bradycardia Heparin Sodium (Porcine) (Heparin Injection (Vial) 5,000 Unit/Ml Vial) 5,000 unit SC Q12 [facility] Lactated Ringer's () 1,000 mls @ 75 mls/hr IV .[id number] [facility] Last Admin: 10/06/20 10:28 Dose: 75 mls/hr Documented by: Sodium Chloride () 1,000 mls @ 15 mls/hr IV .Q48H [facility] Last Admin: 10/06/20 14:27 Dose: Not Given Documented by: Sodium Chloride (0.9% Saline Lock 10 Ml Syringe) 10 - 40 ml IV UD PRN PRN Reason: SALINE FLUSH Assessment/Plan All Active Problems (Last Updated 10/06/20 @ 16:10 by Yany Trujillo) Bradycardia (Acute) Sick sinus syndrome (Acute) Prostate cancer (Acute) Nocturia (Acute) Right hydrocele (Acute) Right groin pain (Acute) Urinary incontinence (Acute) #1 sick sinus syndrome-status post implantation of VVI pacemaker, patient will be monitored on PCU #2 prostate cancer-patient will need follow-up with his urologist #3 coronary artery disease-I placed the patient on Lipitor, he will need to continue this as well as a baby aspirin after discharge from the hospital, he will follow up with cardiology #4 noncompliance with medical regimen-I talked with the patient briefly this morning before his admission to the hospital and told him that he would need to take prescription medications due to his medical problems. Inpatient E&M: 93190 Init Hosp L3
[2020-10-06] MEDS: Atorvastatin Calcium 40 MG Tablet PO (21:32)
[2020-10-07 03:00] VITALS: PULSE 65
[2020-10-07 05:00] VITALS: BP 140/68; PULSE 77; RESP 16; TEMP 36.9; O2SAT 96
--- NOTE | 2020-10-07 05:55 | RAD_ITS ---
STUDY: X-RAY CHEST REASON FOR EXAM: Male, 79 years old. Post permanent ICD/Pacemaker -- inspiration/expiration. Arms Down. Wet read to MD TECHNIQUE: PA and lateral views of the chest. 3 images. COMPARISON: None. FINDINGS: There is a left-sided pacer with leads overlying the right atrium and ventricle. There is no visualized pneumothorax. Right lower lobe atelectasis. There is no demonstrated pleural abnormality. There is mild cardiac enlargement. Normal mediastinum and adarsh. Normal visualized pulmonary arteries. There is atherosclerotic calcification of the aortic arch with tortuosity. There are diffuse degenerative changes of the visualized thoracic spine. Normal visualized ribs, clavicles, and shoulders. There is no demonstrated abnormality of the visualized soft tissue structures of the upper abdomen. RAD/Chest 3 View IMPRESSION: Left-sided pacemaker. Inspiratory, expiratory images obtained without visualized pneumothorax. Lines appear to be in satisfactory position. Electronically Signed: Rachael Amezcua MD at 7:52 EDT Tel , Service support ,
[2020-10-07 07:00] VITALS: PULSE 61
[2020-10-07 09:25] VITALS: BP 155/74; PULSE 61; RESP 17; TEMP 36.3; O2SAT 95
--- NOTE | 2020-10-07 09:40 | DCINST_ITS ---
Discharge Diet: Light diet - advance as tolerated Discharge Activity: Return to Normal Activity Call your doctor if your incision/area has: Sudden Increased Bleeding Call your doctor if you observe: Fever of 101 or Higher, Shortness of breath, Dizziness, Fainting spells, Swelling in the ankles, Chest pain, Prolonged hiccoughing, Increased palpitations (irregular heartbeat) Suture Line Care: Avoid Pulling/Pushing, Avoid Pinching/Bending Cleanse incision/area with: Keep Dressing Clean & Dry Additional Dressing/Incision Instructions:: When dressing is removed, wash and dry incision. Keep covered with a light bandage if it is rubbing against your clothing. Do not cover the incision with an airtight bandage. Change the bandage daily. Do not remove steri strips. The strips will fall off on their own. Additional Instructions: Signs and Symptoms to Report to Your Doctor at Once - call your doctor's office or Doctor's Registry ([phone]) Call 911 or go to the nearest Emergency Department if you feel you need urgent care. *Infection (fever, increased redness or swelling at the incision site, drainage from the incision increased pain at the pacemaker site) *Shortness of breath *Dizziness *Fainting spells *Swelling in the ankles *Chest pain *Prolonged hiccoughing *Increased palpitaitons (irregular heartbeat) Medications: Take your pain medication as directed. Refer to your discharge instruction sheet for a list of medications you are to take. Allergies/Adverse Reactions: Allergies cefazolin [From Ancef] Allergy (Verified 10/06/20 15:46) Rash clopidogrel bisulfate [From Plavix] Allergy (Verified 10/06/20 06:32) HEMATOCHEZIA atorvastatin Adverse Reaction (Verified 10/06/20 06:32) TIRED RED YEAST RICE Adverse Reaction (Uncoded 10/06/20 06:32) LEG PAIN Medications to take at Discharge metFORMIN (XR) [Glucophage Xr] 500 mg PO BIDCM 05/28/13 Relive Supplement 1 ea PO BID 12/26/16 Bicalutamide 50 mg PO DAILY 09/29/20 Dutasteride 0.5 mg PO DAILY 09/29/20 Tamsulosin HCl 0.4 mg PO BID 09/29/20 Primary Care Physician: Jude Ribeiro MD [Primary Care Provider] - Test Results: Test results from this visit will be discussed in further detail at your follow- up appointment, if applicable. When: PACER CLINIC 10/14/20 AT 1 PM Proposed Discharge Date: 10/07/20
--- NOTE | 2020-10-07 09:41 | PN.CARD_ITS ---
Subjectve: patient seen and evaluated Objective: Vital Signs Temp Pulse Resp BP Pulse Ox 97.4 F L 61 17 155/74 H 95 10/07/20 09:25 10/07/20 09:25 10/07/20 09:25 10/07/20 09:25 10/07/20 09:25 Oxygen Delivery Method Room Air Weight: 158 lb 12.8 oz Body Mass Index (BMI) 27.2 Finger Stick Blood Glucose 152 Intake and Output for Last 24 Hours 10/05/20 10/06/20 10/07/20 23:59 23:59 23:59 Intake Total 2272.92 / 2392.92 180 / 180 Output Total 850 / 850 Balance 2272.92 / 1767.92 -670 / -670 General: Awake, Alert, Oriented x 3 HEENT: PERRL, EOMI, Sclera Non Icteric Neck: Supple, Good ROM, No Lymph Node Enlargement Lungs: Clear to auscultation Cardiovascular: Regular Rhythm, Normal S1, Normal S2, No Murmurs, No Rubs, No Gallops 10/06/20 08:31: Sodium 140, Potassium 3.7, Chloride 106, Carbon Dioxide 29.0, Anion Gap 5, BUN 16, Creatinine 1.08, Est GFR (MDRD) Af Amer 84, Est GFR (MDRD) Non-Af 70, BUN/Creatinine Ratio 14.8, Glucose 130 H, Calcium 8.9, Troponin I 0.024 10/06/20 08:31: Magnesium 2.1 Rhythm: EKG: ECHO: Stress Test: Cardiac Cath: PCI: CT Surgery: Holter monitor: EPS: PPM: CXR: Chest CT Scan: Medical Necessity - Tobacco Use Smoking Status: Former smoker Assessment/Plan 1. Minimally symptomatic cardiac pauses with asystole * pacer check today is normal and cxr is normal * Patient can be discharged for outpatient follow-up. * Above communicated with the hospitalist * * Thank you for allowing me to participate in the care of your patient. Please don't hesitate to call if any issues arise.
--- NOTE | 2020-10-07 10:23 | CASEMGMT ---
ESAU GONZALEZ assessment: Face to Face with patient for initial transition planning/care coordination assessment. ESAU GONZALEZ introduced self and role at [facility], pt voices understanding and consents to assessment. Pt is sitting up in bed with sling in place in no distress. Pt is A/Ox4 and answers all questions appropriately. Care providers, pharmacy, and demographics verified. Presentation: Pt was brought in for urological surgery w/ Dr. Dai Admitting dx: Sinus arrest, bradycardia PCP: Quintin but would like to switch PCP's so provided list of local Specialists: Suhas, uro; Nicci, cardio Preferred Pharmacy: [facility] Insurance: [facility] Prescription Benefit: [facility] Living Will/HPOA: Pt states does not have LW/HPOA LNOK: Jose Orona, son; Nayeli Orona, granddaughter Living Arrangements: Pt states lives alone in 2 story home and states no concerns at home. Pt states his son and family live up the street and his daughter is moving home from [place] in the next couple weeks and will be living with pt, as well as her daughter and granddaughter. Pt states is independent with ADL's. Transportation: Pt states drives self and states no transportation concerns. DME/HHC: Pt states has the following DME: cane, walker, and crutches. Pt states no need for any further DME. Pt states no hx of HHC or SNF in the past. Pt states no concerns with going home at time of discharge. Pt is retired. Pt states quit smoking in 1977 and states drinks ETOH occasionally. Pt states no further concerns/needs. CM to follow for any further discharge planning/needs. Advised pt to ask for CM if any further questions/concerns/needs arise, voices understanding. Pt Goal: Home Plan: [place] ESAU GONZALEZ
--- NOTE | 2020-10-07 11:27 | PHA.DC.MR ---
Pharmacy Service has performed discharge medication reconciliation for this patient. No new medications at time of discharge. Medications reviewed are from previously reported home medications. Home Medications metFORMIN (XR) [Glucophage Xr] 500 mg PO BIDCM 05/28/13 Relive Supplement 1 ea PO BID 12/26/16 Bicalutamide 50 mg PO DAILY 09/29/20 Dutasteride 0.5 mg PO DAILY 09/29/20 Tamsulosin HCl 0.4 mg PO BID 09/29/20 The patient's discharge medication list was reviewed for discrepancies and discrepancies were resolved.
--- NOTE | 2020-10-07 12:21 | DCINST_ITS ---
- Discharge Diagnoses Current Active Problems: Current Active and Chronic Problems (Last Updated 10/06/20 @ 16:10 by Yany Trujillo) Bradycardia (Acute) Prostate cancer (Acute) You will use the following diet at home:: Calorie/Carbohydrate Controlled (specify 1200, 1400, etc) - 1800 susan Your food should be the consistency of: Regular Your liquids should be the consistency of: Regular/Thin Discharge Activity: Return to Normal Activity Call your doctor if your incision/area has: Sudden Increased Bleeding Call your doctor if you observe: Fever of 101 or Higher, Shortness of breath, Dizziness, Fainting spells, Swelling in the ankles, Chest pain, Prolonged hiccoughing, Increased palpitations (irregular heartbeat) Suture Line Care: Avoid Pulling/Pushing, Avoid Pinching/Bending Cleanse incision/area with: Keep Dressing Clean & Dry Additional Dressing/Incision Instructions:: When dressing is removed, wash and dry incision. Keep covered with a light bandage if it is rubbing against your clothing. Do not cover the incision with an airtight bandage. Change the bandage daily. Do not remove steri strips. The strips will fall off on their own. Allergies/Adverse Reactions: Allergies cefazolin [From Ancef] Allergy (Verified 10/06/20 15:46) Rash clopidogrel bisulfate [From Plavix] Allergy (Verified 10/06/20 06:32) HEMATOCHEZIA atorvastatin Adverse Reaction (Verified 10/06/20 06:32) TIRED RED YEAST RICE Adverse Reaction (Uncoded 10/06/20 06:32) LEG PAIN Medications to take at Discharge metFORMIN (XR) [Glucophage Xr] 500 mg PO BIDCM 05/28/13 Relive Supplement 1 ea PO BID 12/26/16 Bicalutamide 50 mg PO DAILY 09/29/20 Dutasteride 0.5 mg PO DAILY 09/29/20 Tamsulosin HCl 0.4 mg PO BID 09/29/20 Aspirin E.C. [Ecotrin] 81 mg PO DAILY@0800 #1 tablet 10/07/20 Atorvastatin Calcium [Lipitor] 40 mg PO QHS #30 tablet 10/07/20 The following prescriptions were given: Aspirin E.C. [Ecotrin] 81 mg PO DAILY@0800 #1 tablet Atorvastatin Calcium [Lipitor] 40 mg PO QHS #30 tablet Transmission Status: Pending to [id number] Primary Care Physician: Jude Ribeiro MD [Primary Care Provider] - Test Results: Test results from this visit will be discussed in further detail at your follow- up appointment, if applicable. When: PACER CLINIC 10/14/20 AT 1 PM Please Follow Up With: Ahsan Dai MD When: two weeks-make appointment Proposed Discharge Date: 10/07/20
--- NOTE | 2020-10-08 16:17 | PCM.DC.SUM ---
Discharge Date and Diagnosis - Problem List Patient Problems: Active and Suspected Problems (Last Updated 10/06/20 @ 16:10 by Yany Trujillo) Bradycardia (Acute) Prostate cancer (Acute) Date of Admission: 10/06/20 Date of Discharge: 10/07/20 - Primary Discharge Diagnosis Acute Problems: Active Problems (Last Updated 10/06/20 @ 16:10 by Yany Trujillo) #1 sick sinus syndrome #2 prostate cancer #3 coronary artery disease #4 noncompliance with medical regimen - Secondary Discharge Diagnosis Chronic Problems: Chronic Problems (Last Updated 10/06/20 @ 16:07 by Yany Trujillo) Cardiac pacemaker in situ (Chronic 10/06/20) PPM 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: [employer], Model # CapSureFix Novus MRI SureScan 5076-52 , Serial # [id number];PPM Atrial lead - Telephone Operator Chief: [employer], Model # CapSureFix Novus MRI SureScan 5076-45 , Serial # [id number]; PPM Generator - Telephone Operator Chief: [employer], Model # Radha XT DR MRI SureScan [id number] , Serial # [id number] Hospital Course and Treatment Procedures: 2-D Echocardiogram, - - VVI pacemaker implantation Summary of Care Provided: The patient is a 79 year old M who was admitted directly to PCU from PACU after it was found that he was severely bradycardic during a mapping procedure performed in the OR for the patient's prostate cancer. Patient's heart rate was in the 20s and 30s and he had sinus arrest ranging from 3 to 4 seconds in length. Patient was asymptomatic during these episodes. It had been found when talking with the patient that he had a history of bradycardia in the past after undergoing an angioplasty years ago and it had been recommended that he undergo pacemaker implantation then but he refused to do this. Patient also refused to take any cardiac medications. Patient was admitted to PCU, he remained severely bradycardic on ICU with periods of sinus arrest 3 to 4 seconds in length. Cardiology was contacted and a few hours after he was admitted, a VVI pacemaker was implanted. Patient tolerated the procedure well and he had no complications. Echocardiogram was obtained which showed a normal ejection fraction. On 10/07/2020, patient was seen and examined: On examination he appeared in good health and spirits. Vital signs as documented. Skin warm and dry and without overt rashes. Neck without JVD, neck was supple, trachea midline, thyroid was normal. Lungs clear bilaterally, normal air movement was noted. Heart exam notable for regular rhythm, normal sounds and absence of murmurs, rubs or gallops. Abdomen unremarkable and without evidence of organomegaly, masses, or abdominal aortic enlargement. Bowel sounds are present, abdomen is not distended. Extremities nonedematous, no cyanosis was noted, no clubbing was noted. Neuro: Cranial nerves II through XII are grossly intact, no focal motor deficits were noted, sensation to light touch and pinprick intact, motor exam 5/5 throughout. Psych: Patient is alert and oriented x3, he does not appear anxious or depressed, he does not appear agitated. Patient appears stable for discharge on 10/07/2020. Patient Problems: Active and Suspected Problems (Last Updated 10/06/20 @ 16:10 by Yany Trujillo) Bradycardia (Acute) Prostate cancer (Acute) - Physical Exam Vitals/I&O's: Vital Signs Temp Pulse Resp BP Pulse Ox 97.4 F L 61 17 155/74 H 95 10/07/20 09:25 10/07/20 09:25 10/07/20 09:25 10/07/20 09:25 10/07/20 09:25 Oxygen Delivery Method Room Air Weight: 72.03 kg Body Mass Index (BMI) 27.2 Finger Stick Blood Glucose 152 Intake and Output for Last 24 Hours 10/06/20 10/07/20 10/08/20 23:59 23:59 23:59 Intake Total 2272.92 / 2392.92 1420 / 1420 Output Total 850 / 850 Balance 2272.92 / 1767.92 570 / 570 Microbiology Past 72 Hours 10/05/20 11:20 Interface Orders SARS-CoV-2 Antigen (Rapid) - Final Discharge Diet: Light diet - advance as tolerated Discharge Activity: Return to Normal Activity Call your doctor if your incision/area has: Sudden Increased Bleeding Call your doctor if you observe: Fever of 101 or Higher, Shortness of breath, Dizziness, Fainting spells, Swelling in the ankles, Chest pain, Prolonged hiccoughing, Increased palpitations (irregular heartbeat) Suture Line Care: Avoid Pulling/Pushing, Avoid Pinching/Bending Cleanse incision/area with: Keep Dressing Clean & Dry Additional Dressing/Incision Instructions:: When dressing is removed, wash and dry incision. Keep covered with a light bandage if it is rubbing against your clothing. Do not cover the incision with an airtight bandage. Change the bandage daily. Do not remove steri strips. The strips will fall off on their own. Home Medications: Medications to take at Discharge metFORMIN (XR) [Glucophage Xr] 500 mg PO BIDCM 05/28/13 Relive Supplement 1 ea PO BID 12/26/16 Bicalutamide 50 mg PO DAILY 09/29/20 Dutasteride 0.5 mg PO DAILY 09/29/20 Tamsulosin HCl 0.4 mg PO BID 09/29/20 Aspirin E.C. [Ecotrin] 81 mg PO DAILY@0800 #1 tab 10/07/20 Atorvastatin Calcium [Lipitor] 40 mg PO QHS #30 tablet 10/07/20 Following Prescriptions Were Given to Patient: Aspirin E.C. [Ecotrin] 81 mg PO DAILY@0800 #1 tab Atorvastatin Calcium [Lipitor] 40 mg PO QHS #30 tablet Transmission Status: Received by [id number] Primary Care Physician: Jude Ribeiro MD [Primary Care Provider] - Please Follow Up With: Ahsan Dai MD When: PACER CLINIC 10/14/20 AT 1 PM Please Follow Up With: Ahsan Dai MD When: two weeks-make appointment Additional Instructions: Signs and Symptoms to Report to Your Doctor at Once - call your doctor's office or Doctor's Registry ([phone]) Call 911 or go to the nearest Emergency Department if you feel you need urgent care. *Infection (fever, increased redness or swelling at the incision site, drainage from the incision increased pain at the pacemaker site) *Shortness of breath *Dizziness *Fainting spells *Swelling in the ankles *Chest pain *Prolonged hiccoughing *Increased palpitaitons (irregular heartbeat) Medications: Take your pain medication as directed. Refer to your discharge instruction sheet for a list of medications you are to take. Disposition: Home Minutes spent on discharge:: 32 Patient Condition:: Stable Medical Necessity - Tobacco Use Smoking Status: Former smoker Meaningful Use Info Meaningful Use Diagnoses (Choose all that apply): None applicable Inpatient E&M: 21289 Disch Hosp
== END 2020-10-07 13:15 | disposition home or self-care (01) | DRG 244 ==
LOC: SDC 10:59 → PCU 10:59
PROVIDERS: Anesthesiology; Internal Medicine Cardiovascular Disease; Urology; Admitting Provider Internal Medicine; PCP Family Medicine; Referring Provider Internal Medicine; Visit Provider Internal Medicine
PROC: (CPT 55874; principal; 2020-10-06 07:15)
DX: I49.5 Sick sinus syndrome (principal); C61 Malignant neoplasm of prostate; Z53.8 Procedure and treatment not carried out for other reasons; Z91.19 Patient's noncompliance with other medical treatment and regimen; I25.10 Atherosclerotic heart disease of native coronary artery without angina pectoris; E11.9 Type 2 diabetes mellitus without complications; R35.1 Nocturia; R32 Unspecified urinary incontinence; J45.909 Unspecified asthma, uncomplicated; G47.30 Sleep apnea, unspecified; Z79.84 Long term (current) use of oral hypoglycemic drugs; I25.2 Old myocardial infarction; Z79.899 Other long term (current) drug therapy; Z86.73 Personal history of transient ischemic attack (TIA), and cerebral infarction without residual deficits; Z87.891 Personal history of nicotine dependence
CPT/HCPCS: 33208; 71047; 80048; 82962; 83735; 84484; 85027; 87426; 93005; 93306; 99152; 99153; C9803; J7050; J7120; Q9957; A4216; C1894; C8929; J2405; J3490

== ENCOUNTER → 2020-11-22 13:29 | Outpatient (CLI) | payer MEDICARE, SELFPAY ==
[2020-10-06 10:00] VITALS: BMI 27.2
[2020-11-22 14:53] LABS: PSA,Total- Diagnostic 0.19 ng/mL (0.0-4.0)
== END ==
PROVIDERS: PCP Family Medicine; Referring Provider Urology; Visit Provider Urology
DX: C61 Malignant neoplasm of prostate (principal)
CPT/HCPCS: 36415; 84153

== ENCOUNTER → 2020-12-02 13:01 | Outpatient (CLI) | payer MEDICARE, SELFPAY ==
[2020-10-06 10:00] VITALS: BMI 27.2
[2020-12-02 15:05] LABS: Absolute Lymphocyte Count 1.32 X10^3/uL (0.83-4.51); Absolute Neutrophil Count 1.9 X10^3/uL (2.0-7.7); Basophil# 0.03 X10^3/uL; Basophil% 0.8 % (0-1); Eosinophil# 0.08 X10^3/uL; Eosinophils% 2.2 % (0-5); Hematocrit 35.8 % (40-54); Hemoglobin 12.6 g/dL (13.0-16.5); Lymphocyte # 1.32 X10^3/ul (0.83-4.51); Lymphocyte % 35.6 % (19-41); Mean Corp Hgb Conc 35.2 g/dL (32-36); Mean Corpuscular Hgb 34.6 pg (27.0-32.0); Mean Corpuscular Volume 98.4 fL (80-94); Mean Platelet Vol. 9.3 fl (6.2-12.0); Monocyte# 0.33 X10^3/uL; Monocyte% 8.9 % (0-10); NRBC Flagged by Analyzer 0 % (0-5); Neutrophil # 1.94 X10^3/uL (2.7-7.7); Neutrophil % 52.2 % (47-70); Platelet Count 195 K/mm3 (150-450); RBC Distribution Width CV 11.7 % (11.6-14.6); Red Blood Count 3.64 M/mm3 (4.6-6.2); White Blood Count 3.7 K/mm3 (4.4-11.0)
[2020-12-02 15:20] LABS: Creatinine, Serum 0.99 mg/dL (0.70-1.30); EST Glomerular Filtration Rate 77 mL/min (>60); Est Glom Filt Rate - Afr Amer 93 mL/min (>60); PSA,Total- Diagnostic 0.13 ng/mL (0.0-4.0)
== END ==
PROVIDERS: PCP Family Medicine; Referring Provider Radiology Radiation Oncology; Visit Provider Radiology Radiation Oncology
DX: Z01.818 Encounter for other preprocedural examination (principal); C61 Malignant neoplasm of prostate
CPT/HCPCS: 36415; 82565; 84153; 85025

== ENCOUNTER → 2020-12-03 12:57 | Outpatient (CLI) | payer MEDICARE, SELFPAY ==
[2020-10-06 10:00] VITALS: BMI 27.2
--- NOTE | 2020-12-03 13:07 | CT_ITS ---
STUDY: CT PELVIS WITH CONTRAST REASON FOR EXAM: Male, 80 years old. PROSTATE CA RADIATION DOSAGE (If Supplied By Facility): CTDIvol = ( ) mGy, DLP = ( ) mGycm TECHNIQUE: Transaxial imaging of the pelvis was performed without oral contrast. Oral and amp; IV REDICAT and amp; 100ML ISOVUE 300 was administered intravenously. Multiplanar coronal and sagittal images were reformatted. Individualized dose optimization techniques were used for this CT. COMPARISON: 08/03/2020 FINDINGS: Normal urinary bladder. Normal visualized small intestine. Normal visualized colon. There is no pelvic fluid. There is no pelvic lymphadenopathy or mass lesion. There is diffuse atherosclerotic calcification of the pelvic arteries with elongation and tortuosity. Normal abdominal wall. Diffuse degenerative bony changes, no acute fracture or suspicious osseous lesion CT/CT Pelvis W/CONT Therapy IMPRESSION: No free intraperitoneal fluid, air, or suspicious adenopathy Degenerative bony changes Diffuse atherosclerosis Electronically Signed: Shan Keane MD at 14:18 EDT , Service support ,
== END ==
PROVIDERS: PCP Family Medicine; Referring Provider Radiology Radiation Oncology; Visit Provider Radiology Radiation Oncology
DX: C61 Malignant neoplasm of prostate (principal)
CPT/HCPCS: 51600; 72193; Q9965; Q9967

== ENCOUNTER → 2020-12-29 14:05 | Outpatient (CLI) | payer MEDICARE, SELFPAY ==
[2020-10-06 10:00] VITALS: BMI 27.2
[2020-12-29 15:22] LABS: Absolute Lymphocyte Count 0.57 X10^3/uL (0.83-4.51); Absolute Neutrophil Count 1.7 X10^3/uL (2.0-7.7); Basophil# 0.01 X10^3/uL; Basophil% 0.4 % (0-1); Eosinophil# 0.08 X10^3/uL; Hematocrit 34.1 % (40-54); Hemoglobin 11.9 g/dL (13.0-16.5); Lymphocyte # 0.57 X10^3/ul (0.83-4.51); Lymphocyte % 21.2 % (19-41); Mean Corp Hgb Conc 34.9 g/dL (32-36); Mean Corpuscular Hgb 34.3 pg (27.0-32.0); Mean Corpuscular Volume 98.3 fL (80-94); Mean Platelet Vol. 9.1 fl (6.2-12.0); Monocyte% 11.2 % (0-10); NRBC Flagged by Analyzer 0 % (0-5); Neutrophil # 1.72 X10^3/uL (2.7-7.7); Neutrophil % 63.8 % (47-70); POSITIVE DIFFERENTIAL YES; Platelet Count 151 K/mm3 (150-450); RBC Distribution Width CV 11.8 % (11.6-14.6); RBC Distribution Width SD 42.7 fl (35.1-43.9); Red Blood Count 3.47 M/mm3 (4.6-6.2); White Blood Count 2.7 K/mm3 (4.4-11.0)
[2020-12-29 15:24] LABS: Differential Indicated SCAN CRITERIA MET
[2020-12-29 16:02] LABS: Platelet Estimate ADEQUATE (ADEQ); Red Cell Morphology NORM C+C NORMAL (NORM C&C)
[2020-12-30 13:11] LABS: Pathologist Review Reviewed
== END ==
PROVIDERS: PCP Family Medicine; Referring Provider Radiology Radiation Oncology; Visit Provider Radiology Radiation Oncology
DX: C61 Malignant neoplasm of prostate (principal)
CPT/HCPCS: 36415; 85025

== ENCOUNTER → 2021-01-20 11:20 | Outpatient (CLI) | payer MEDICARE, SELFPAY ==
[2020-10-06 10:00] VITALS: BMI 27.2
[2021-01-20 12:16] LABS: Absolute Lymphocyte Count 0.56 X10^3/uL (0.83-4.51); Absolute Neutrophil Count 3.5 X10^3/uL (2.0-7.7); Basophil# 0.04 X10^3/uL; Basophil% 0.9 % (0-1); Eosinophil# 0.19 X10^3/uL; Eosinophils% 4.1 % (0-5); Hematocrit 33.7 % (40-54); Hemoglobin 11.7 g/dL (13.0-16.5); Lymphocyte # 0.56 X10^3/ul (0.83-4.51); Mean Corp Hgb Conc 34.7 g/dL (32-36); Mean Platelet Vol. 9.2 fl (6.2-12.0); Monocyte# 0.31 X10^3/uL; Monocyte% 6.7 % (0-10); NRBC Flagged by Analyzer 0 % (0-5); Neutrophil # 3.49 X10^3/uL (2.7-7.7); Neutrophil % 74.8 % (47-70); POSITIVE DIFFERENTIAL YES; Platelet Count 221 K/mm3 (150-450); RBC Distribution Width SD 42.8 fl (35.1-43.9); Red Blood Count 3.44 M/mm3 (4.6-6.2); White Blood Count 4.7 K/mm3 (4.4-11.0)
[2021-01-20 12:18] LABS: Differential Indicated SCAN CRITERIA MET
== END ==
PROVIDERS: PCP Family Medicine; Referring Provider Radiology Radiation Oncology; Visit Provider Radiology Radiation Oncology
DX: C61 Malignant neoplasm of prostate (principal)
CPT/HCPCS: 36415; 85025

== ENCOUNTER → 2021-02-21 11:57 | Outpatient (CLI) | payer MEDICARE, SELFPAY ==
[2020-10-06 10:00] VITALS: BMI 27.2
[2021-02-21 14:06] LABS: PSA,Total- Diagnostic 0.02 ng/mL (0.0-4.0)
== END ==
PROVIDERS: PCP Family Medicine; Referring Provider Urology; Visit Provider Urology
DX: C61 Malignant neoplasm of prostate (principal)
CPT/HCPCS: 36415; 84153

== ENCOUNTER → 2021-06-13 13:53 | Outpatient (CLI) | payer MEDICARE, SELFPAY ==
--- NOTE | 2021-06-13 14:03 | RAD_ITS ---
EXAM: XR ABDOMEN, 1 VIEW : 1940 CLINICAL INDICATION: BENIGN PROSTATIC HYPERPLASIA WITH LOWER URINARY TRACT TECHNIQUE: Frontal supine view of the abdomen/pelvis. This report was created using [employer] report generation technology. COMPARISON: None. FINDINGS: LOWER THORAX: No acute pathology. GASTROINTESTINAL TRACT: Unremarkable. Non-obstructive. No bowel or stomach distention. ORGANS: Unremarkable as visualized. No organomegaly. No abnormal calcifications. BONES/JOINTS: There are degenerative changes in the lumbar spine with disc space narrowing and osteophyte formation. SOFT TISSUES: No acute pathology. RAD/Abdomen Single View IMPRESSION: No acute findings. at 1807 Reported and signed by: Jermaine Romo MD Electronically Signed: Jermaine Romo MD at 18:06 EST Tel , Service support ,
--- NOTE | 2021-06-13 14:05 | RAD_ITS ---
EXAM: XR LEFT HIP WITH PELVIS WHEN PERFORMED, 2 OR 3 VIEWS : 1940 CLINICAL INDICATION: PAIN, TECHNIQUE: Two or three views of the left hip with pelvis when performed. This report was created using [employer] report generation technology. COMPARISON: None. FINDINGS: BONES/JOINTS: Unremarkable. No displaced fracture. No destructive or sclerotic lesions. Note that overlapping bowel shadows may however obscure fine detail. Sacroiliac joint is unremarkable. No widening of the pubic symphisis. The articular structures are unremarkable. SOFT TISSUES: Unremarkable. No soft tissue swelling or gas. OTHER FINDINGS: Multiple surgical coils are present. RAD/HIP, UNI W/ Pelvis 2-3 Views IMPRESSION: No acute findings in the pelvis or left hip. at 1808 Reported and signed by: Jermaine Romo MD Electronically Signed: Jermaine Romo MD at 18:07 EST Tel , Service support ,
== END ==
PROVIDERS: PCP Family Medicine; Referring Provider Urology; Visit Provider Urology
DX: N40.1 Benign prostatic hyperplasia with lower urinary tract symptoms (principal)
CPT/HCPCS: 73502; 74018

== ENCOUNTER → 2021-12-19 | Outpatient (CLI) | payer MEDICARE, SELFPAY ==
[2021-12-19 15:58] LABS: PSA,Total - Annual Screen < 0.01 ng/mL (0.00-4.00)
== END | disposition home or self-care (01) ==
LOC: LAB 14:11
PROVIDERS: PCP Family Medicine; Visit Provider Registered Nurse
DX: Z12.5 Encounter for screening for malignant neoplasm of prostate (principal); C61 Malignant neoplasm of prostate
CPT/HCPCS: 36415; 84153; G0103

== ENCOUNTER → 2022-05-22 | Outpatient (CLI) | payer MEDICARE, SELFPAY ==
--- NOTE | 2022-05-22 18:20 | STRESSREP ---
Stress Test Report Oncologic myocardial perfusion stress test. 81-year-old male with a history of chest pain. Resting KG demonstrates sinus rhythm with frequent premature atrial complexes. Resting blood pressure is 152/98 mmHg. 0.4 mg of regadenoson was infused per usual protocol followed by rapid intravenous saline flush injection continuous EKG monitoring was performed. The maximum heart rate attained was 94 bpm which was 68% of max impacted heart rate the maximum workload was 1 metabolic equivalent. At rest there were no ST or T wave changes noted to suggest abnormal flow reserve and at peak infusion nonspecific ST changes were noted with did not meet the criteria for ischemia. No clinical angina was noted. The final blood pressure was 138/88 mmHg. Myocardial perfusion protocol. 11.2 mCi of technetium 99m sestamibi was injected at rest. 0.4 mg of regadenoson was infused per usual protocol. At peak infusion 33.4 mCi of technetium 99m sestamibi was injected stress images were obtained and stress and rest images were reconstructed and compared in the short axis vertical long and horizontal long axis. Perfusion SPECT analysis: Review of the stress images demonstrate normal uptake of tracer noted in all areas of the myocardium. Resting images similar demonstrate normal uptake of tracer noted in all areas of the myocardium. No obvious areas of reversibility are noted to suggest ischemia. Conclusion: Normal pharmacologic myocardial perfusion stress test. Preserved ejection fraction.
== END | disposition home or self-care (01) ==
LOC: CVS 07:17
PROVIDERS: PCP Family Medicine; Visit Provider Internal Medicine Cardiovascular Disease
DX: I25.10 Atherosclerotic heart disease of native coronary artery without angina pectoris (principal); Z98.61 Coronary angioplasty status
CPT/HCPCS: 78452; 93017; A9500; A4216; J2785

== ENCOUNTER 2022-09-02 11:39 | Emergency (ER) | payer MEDICARE, SELFPAY ==
[2022-09-02 11:41] VITALS: BP 150/80; PULSE 81; RESP 20; TEMP 36.4; O2SAT 100; BMI 29.1
--- NOTE | 2022-09-02 11:56 | EDS_ITS ---
HPI History of Present Illness Chief Complaint: Weakness Informant: patient Onset/Context/Timing Onset: Weeks (1) Context: Gradual Onset Timing: Continuous Quality: Aching Location: Left hip Current Severity: Severe Worsened by: Weightbearing Relieved by: Certain positions Narrative Narrative: Patient presents with left hip pain that has been getting progressively worse over the past week. Patient denies any trauma or injury. Patient states he was unable to bear weight today because of the pain. Patient states he was having difficulty getting around last evening. Patient states his pain is aching. Patient states it is worse with any movement or weightbearing. Patient states it is better in a certain position. Patient states the pain starts in his low back and radiates to his left knee. Patient denies any fevers or chills. PFSH PFS Medical History Abdominal pain Arthritis Asthma Atherosclerosis of coronary artery without angina pectoris Diabetes History of ST elevation myocardial infarction (STEMI) (09/2012) Nocturia Right groin pain Right hydrocele Sick sinus syndrome Sleep apnea Stroke Urinary incontinence Home Medications metformin 500 mg tablet,extended release 24 hr 500 mg PO BIDCM 05/28/13 [History Last Taken 10/05/20] Relive Supplement 1 ea PO BID supplement 12/26/16 [History Last Taken 10/05/20] rosuvastatin 5 mg tablet (Crestor) 5 mg PO DAILY #90 tabs 05/11/22 [Rx Last Taken Unknown] hydrocodone-acetaminophen 5-325mg 5mg-325mg 1 tab PO Q6H PRN PRN Pain 3 days #10 TABLETS 09/02/22 [Rx Last Taken Unknown] Allergy/AdvReac Type Severity Reaction Status Date / Time cefazolin [From Ancef] Allergy Rash Verified 09/02/22 11:48 clopidogrel bisulfate Allergy HEMATOCHEZI Verified 09/02/22 11:48 [From Plavix] A Penicillins Allergy Anaphylaxis Verified 09/02/22 11:48 atorvastatin AdvReac TIRED Verified 09/02/22 11:48 red yeast rice AdvReac Other Verified 09/02/22 11:48 Surgical History 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) History of coronary angioplasty (09/2012) Status post inguinal hernia repair Social History Smoking Status: Former smoker ROS ROS ED Constitutional Constitutional ED: Denies chills or fever(s) Eyes Eyes: Denies blurry vision or change in vision ENT ENT ED: Denies rhinorrhea or sore throat Cardiovascular Cardiovascular: Denies chest pain or palpitations Respiratory/Chest Respiratory/Chest: Denies cough or dyspnea Gastrointestinal Gastrointestinal: Denies nausea or vomiting Genitourinary Genitourinary ED: Denies dysuria or hematuria Musculoskeletal Musculoskeletal: Reports back pain; Denies neck pain Integumentary Denies abscess or rash Neurologic Neurologic: Reports weakness; Denies headache(s) Allergic/Immunologic Allergic/Immunologic ED: Denies mouth swelling or urticaria EXAM Physical Exam Const Vital Signs: 09/02/22 11:41 09/02/22 12:27 Temperature 97.5 F L Temperature Source Temporal Pulse Rate 81 Respiratory Rate 20 H Respiratory Pattern Normal Blood Pressure 150/80 H Blood Pressure Mean 103 Pulse Ox 100 Oxygen Delivery Method Room Air Positive well nourished and well developed General Appearance ED: well developed and NAD HEENT Reports moist mucous membranes Neck supple and no JVD Extremity normal to inspection Extremity Narrative: There is tenderness over the left hip. There is decreased range of motion and all motions of the left hip. There is no obvious deformity noted. Strength is 5/5 bilaterally in the lower extremities. There are no sensory deficits noted. There is no calf tenderness noted. There is no edema noted. Neuro oriented x3, CN's II-XII intact bilaterally and no sensory deficits noted Sensorium / Orientation: alert Motor Exam: strength 5/5 throughout Psych mental status grossly normal MDM MDM MDM Narrative Medical decision making narrative: Differential diagnosis includes sciatica, degenerative arthritis of the left hip, lumbar radiculopathy, and hip fracture. X-rays of the left hip will be obtained to assess for fracture and degenerative arthritis. Radiography Diagnostic Testing: Clinical Impression(s) from Imaging Studies Hip/Pelvis X-Ray 09/02/22 12:30 IMPRESSION: No acute displaced fracture or dislocation identified. Electronically Signed: Luisa Brar MD at 12:51 EST , X-rays of the right hip were obtained. There are 3 views. On my independent interpretation, there is no acute fracture or dislocation. There are some mild degenerative changes noted. Radiologist also interpreted the x-rays and agrees. Treatment and Re-Evaluation Narrative: Patient was given a dose of morphine here. Patient was advised of his findings. Patient is feeling better on reevaluation. Patient was able to ambulate with a walker. Patient was instructed to use ice to the area. Patient was given a prescription for a short course of [place]. Patient was instructed to follow-up with his primary care physician in 5 to 7 days. Patient understood and was agreeable with the plan. All questions were answered. Discharge Plan Triage Chief Complaint: Weakness ED Provider: Tr Heck Dx/Rx/DC Orders Clinical Impression: Strain of left hip Instructions: ED Hip Strain Prescriptions: New hydrocodone-acetaminophen [hydrocodone-acetaminophen] 5-325 mg tablet 1 tab PO Q6H PRN PRN (Reason: Pain) 3 Days Qty: 10 0RF No Action rosuvastatin [Crestor] 5 mg tablet 5 mg PO DAILY Qty: 90 2RF metformin 500 MG tablet 500 mg PO BIDCM Relive Supplement 1 ea PO BID Primary Care Provider: PodlogTegan miller NP Referrals: Jude Ribeiro MD [Non-Staff] - 5-7 Days Disposition Disposition: Home, Self Care
[2022-09-02] MEDS: Morphine 4 MG/ML Syringe IM (12:18)
--- NOTE | 2022-09-02 12:30 | RAD_ITS ---
HISTORY: Injury/Pain. TECHNIQUE: XR Hip Unilateral with Pelvis when performed; 2-3 Views. COMPARISON: 06/13/2021. FINDINGS: OSSEOUS STRUCTURES: No acute displaced fracture identified. Note that overlapping bowel shadows may obscure osseous detail. Generalized osteopenia. JOINT SPACES: No dislocation. Mild degenerative change. SOFT TISSUES: Postoperative changes over the pelvis. RAD/HIP, UNI W/ Pelvis 2-3 Views IMPRESSION: No acute displaced fracture or dislocation identified. Electronically Signed: Luisa Brar MD at 12:51 EST ,
[2022-09-02 14:35] VITALS: BP 126/78; PULSE 78; RESP 16; TEMP 36.6; O2SAT 99
== END 2022-09-02 14:56 | disposition home or self-care (01) ==
PROVIDERS: Emergency Provider Emergency Medicine; PCP Nurse Practitioner Primary Care; Visit Provider Emergency Medicine
DX: S76.012A Strain of muscle, fascia and tendon of left hip, initial encounter (principal); E11.9 Type 2 diabetes mellitus without complications; X58.XXXA Exposure to other specified factors, initial encounter; I25.10 Atherosclerotic heart disease of native coronary artery without angina pectoris; G47.30 Sleep apnea, unspecified; Z79.84 Long term (current) use of oral hypoglycemic drugs; Z79.899 Other long term (current) drug therapy; I25.2 Old myocardial infarction; Z87.891 Personal history of nicotine dependence
CPT/HCPCS: 73502; 96372; 99282

== ENCOUNTER → 2022-09-28 | Outpatient (CLI) | payer MEDICARE, SELFPAY ==
[2022-09-28 15:41] LABS: PSA,Total- Diagnostic < 0.01 ng/mL (0.0-4.0)
== END | disposition home or self-care (01) ==
LOC: LAB 13:52
PROVIDERS: PCP Nurse Practitioner Primary Care; Referring Provider Registered Nurse; Visit Provider Registered Nurse
DX: C61 Malignant neoplasm of prostate (principal)
CPT/HCPCS: 36415; 84153

== ENCOUNTER 2023-01-30 13:08 | Emergency (ER) | payer MEDICARE, SELFPAY ==
[2023-01-30 13:09] VITALS: BP 125/76; PULSE 80; RESP 14; TEMP 36.6; O2SAT 98; BMI 28.2
[2023-01-30 13:21] VITALS: BMI 25.2
--- NOTE | 2023-01-30 13:30 | RAD_ITS ---
STUDY: X-RAY - LEFT HAND REASON FOR EXAM: Male, 82 years old. left hand swollen TECHNIQUE: 3 view(s) of the hand. COMPARISON: None. FINDINGS: The bones are diffusely demineralized. No demonstrated fracture or suspicious osseous lesion. Degenerative arthrosis is noted at all visualized joint spaces. There is chondrocalcinosis noted in the TFCC. There is nonspecific soft tissue swelling. RAD/Hand Min 3 Views IMPRESSION: Diffuse osteopenia with polyarticular arthrosis. No demonstrated fracture or suspicious osseous lesion. However, a subtle fracture or erosive lesion could easily be present and overlooked due to the osteopenia and overlapping osseous structures. Chondrocalcinosis Electronically Signed: Shan Keane MD at 13:56 EDT ,
--- NOTE | 2023-01-30 14:30 | EX.ED.UPPERE ---
HPI History of Present Illness Chief Complaint: Upper Extremity Injury Narrative Narrative: Patient is a 82-year-old male who is presenting with left hand pain since Sunday. Patient has no history of gout. Patient has no injury. Patient's with his daughter. Patient has some mild swelling in the left hand compared to the right. Patient is having pain with flexion extension of the left hand along with flexion extension of the left wrist. No redness. No obvious signs of injury, no other acute complaints. Patient feels the pain is worse today than it was yesterday. Patient has been using no ice, heat, he is taken nothing for pain at home [facility] Medical History Abdominal pain Arthritis Asthma Atherosclerosis of coronary artery without angina pectoris Diabetes History of ST elevation myocardial infarction (STEMI) (09/2012) Nocturia Right groin pain Right hydrocele Sick sinus syndrome Sleep apnea Stroke Urinary incontinence Home Medications metformin 500 mg tablet,extended release 24 hr 500 mg PO BIDCM 05/28/13 [History Last Taken 10/05/20] hydrocodone-acetaminophen 5-325mg 5mg-325mg 1 tab PO Q6H PRN PRN Pain 3 days #10 TABLETS 09/02/22 [Rx Last Taken Unknown] naproxen 500 mg tablet (Naprosyn) 500 mg PO BID PRN pain #20 tabs 01/30/23 [Rx Last Taken Unknown] tramadol 50 mg tablet 50 mg PO Q4H PRN PRN Pain 3 days #12 tabs 01/30/23 [Rx Last Taken Unknown] Allergy/AdvReac Type Severity Reaction Status Date / Time cefazolin [From Ancef] Allergy Rash Verified 01/30/23 13:09 clopidogrel bisulfate Allergy HEMATOCHEZI Verified 01/30/23 13:09 [From Plavix] A Penicillins Allergy Anaphylaxis Verified 01/30/23 13:09 atorvastatin AdvReac TIRED Verified 01/30/23 13:09 red yeast rice AdvReac Other Verified 01/30/23 13:09 Surgical History 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) History of coronary angioplasty (09/2012) Status post inguinal hernia repair Social History Smoking Status: Former smoker ROS ROS ED ROS Narrative REVIEW OF SYSTEMS: Unless otherwise stated in this report the patient's positive and negative responses for review of systems for constitutional, eyes, ENT, cardiovascular, respiratory, gastrointestinal, neurological, , musculoskeletal, and integument systems and related systems to the presenting problem are either stated in the history of present illness or were not pertinent or were negative for the symptoms and/or complaints related to the presenting medical problem. EXAM Physical Exam Narrative Exam Narrative: Vital signs reviewed and patient is not hypoxic. General: The patient appears well and in no apparent distress. Patient is resting comfortably on cart. Not toxic, lethargic, or listless. Skin: Warm, dry, no pallor noted. There is no rash noted. Head: Normocephalic, atraumatic Eye: Normal conjunctiva, no drainage, EOMI. PERRL. Ears, Nose, Mouth, and Throat: oral mucosa is moist. Nares patent. Mouth without vesicles. Cardiovascular: Regular Rate and Rhythm, no murmurs, gallops, or rubs Respiratory: Patient is in no distress, no accessory muscle use, lungs are clear to auscultation, no wheezing, rales or rhonchi. Musculoskeletal: The patient has full range of motion of all extremities and joints with no difficulty except to the left hand and wrist. Patient has moderate pain with flexion extension abduction abduction of the left wrist, patient has mild to moderate pain with flexion extension of the 5 fingers left hand. No signs of gout. No signs of septic joint. No warmth or redness to the left hand, mild swelling in the left hand compared to the right. Patient has no motor, no sensory deficits. Full range of motion of all extremities no difficulty. Neurological: A&O x4, normal speech, no focal neurological deficits. Psychiatric: Cooperative Const Vital Signs: 01/30/23 13:09 Temperature 97.8 F Temperature Source Temporal Pulse Rate 80 Respiratory Rate 14 Blood Pressure 125/76 H Blood Pressure Mean 92 Pulse Ox 98 Oxygen Delivery Method Room Air MDM MDM MDM Narrative Medical decision making narrative: Procedure note: Patient was placed in a left Velcro wrist splint. Splint was assisted with Dr. Lopez. The patient was neurovascular intact before and after the splint was placed. The affected bones/injured area had proper alignment in a splint. Education on splint care at home was given at bedside. Patient and family had no questions at disposition. Patient has no acute injury. X-ray shows no acute findings with chronic changes noted. Patient will follow-up with orthopedic surgery, patient was placed in a left wrist splint. Patient was to use anti-inflammatories and also prescribed tramadol to help with pain. Patient will start using ice, no heat. No acute injury. No signs of gout. No signs of septic joint. Unknown source of pain. Patient looks well. No systemic complaints Radiography X-Ray: Read by ED Physician (Patient's left hand x-ray shows no acute fracture, dislocation, or acute abnormality) Diagnostic Testing: Clinical Impression(s) from Imaging Studies Hand X-Ray 01/30/23 13:30 IMPRESSION: Diffuse osteopenia with polyarticular arthrosis. No demonstrated fracture or suspicious osseous lesion. However, a subtle fracture or erosive lesion could easily be present and overlooked due to the osteopenia and overlapping osseous structures. Chondrocalcinosis Electronically Signed: Shan Keane MD at 13:56 EDT Reading Location ID and State: [facility] / [place] , Service support , Discharge Plan Triage Chief Complaint: Upper Extremity Injury ED Provider: Valdez Lopez Dx/Rx/DC Orders Clinical Impression: Pain in left hand, Acute pain of left wrist Instructions: Medicine for Pain, ED Arthralgia, ED Pain, Acute, Uncertain Cause, ED RICE Prescriptions: New tramadol 50 mg tablet 50 mg PO Q4H PRN PRN (Reason: Pain) 3 Days Qty: 12 0RF naproxen [Naprosyn] 500 mg tablet 500 mg PO BID PRN (Reason: pain) Qty: 20 0RF Rx Instructions: with food and drink No Action metformin 500 MG tablet 500 mg PO BIDCM hydrocodone-acetaminophen [hydrocodone-acetaminophen] 5-325 mg tablet 1 tab PO Q6H PRN PRN (Reason: Pain) 3 Days Qty: 10 0RF Primary Care Provider: Tegan Wing NP Referrals: Juan M Morin MD [Med Staff - Active Staff] - Tegan Wing NP, [facility] [Primary Care Provider] - Activity Restrictions/Additional Instructions: Ice 20 minutes on, 20 minutes off. Do not use heat. Use your wrist splint for the next 3 to 4 days as needed. Follow-up with orthopedic surgery for further care. Take anti-inflammatories with food or ice. Use pain medication as needed. Disposition Disposition: Home, Self Care Discharge Date/Time: 01/30/23 14:50
== END 2023-01-30 14:50 | disposition home or self-care (01) ==
PROVIDERS: Emergency Provider Emergency Medicine; PCP Nurse Practitioner Primary Care; Visit Provider Emergency Medicine
DX: M79.642 Pain in left hand (principal); E11.9 Type 2 diabetes mellitus without complications; M25.532 Pain in left wrist; I25.10 Atherosclerotic heart disease of native coronary artery without angina pectoris; Z79.84 Long term (current) use of oral hypoglycemic drugs; Z79.899 Other long term (current) drug therapy; Z87.891 Personal history of nicotine dependence
CPT/HCPCS: 73130; 99283

== ENCOUNTER 2023-12-10 11:06 | Emergency (ER) | payer MEDICARE, SELFPAY ==
[2023-12-10 11:06] VITALS: BP 134/87; PULSE 84; RESP 17; TEMP 35.9; O2SAT 98; BMI 25.8
[2023-12-10 11:11] VITALS: O2SAT 96
--- NOTE | 2023-12-10 11:16 | CT_ITS ---
HISTORY: FALL. TECHNIQUE: Helically acquired images were obtained of the cervical spine without contrast. 2D reformatted images were reviewed. A radiation dose optimization technique was used for this scan. 422 images. COMPARISON: None. FINDINGS: VERTEBRAE: Vertebral body heights maintained. No acute fracture identified. ALIGNMENT: No significant anterior or posterior subluxation. Straightening of the cervical lordosis. INTERVERTEBRAL DISCS: Advanced degenerative endplate changes with posterior disc bulge osteophyte complexes of C3-4, C4-5, C5-6, and C6/7. Severe central canal stenosis and probable cord impingement of C3-4 with moderate bilateral foraminal narrowing. SOFT TISSUES: No prevertebral soft tissue swelling. Cardiac pacemaker noted. CT/Spine Cervical without Contras IMPRESSION: No evidence for acute fracture or dislocation in the cervical spine. Multilevel degenerative disc disease as above. Electronically Signed: Luisa Brar MD at 11:53 EDT ,
--- NOTE | 2023-12-10 11:16 | CT_ITS ---
HISTORY: FALL. TECHNIQUE: Multiple axial images were obtained of the head without intravenous contrast. A radiation dose optimization technique was used for this scan. 246 images. COMPARISON: None. FINDINGS: BRAIN PARENCHYMA: Multiple foci and zones of low attenuation in the bilateral cerebral white matter compatible with chronic small vessel ischemic gliosis. Small chronic left occipital infarct. No acute intra-axial hemorrhage identified. CSF SPACES: Generalized volume loss. No midline shift or other significant mass effect. No acute extra-axial hemorrhage seen. OTHER: Intact calvarium. No significant air fluid levels in the paranasal sinuses or mastoid air cells. Bilateral lens resections. CT/Brain/Head without Contrast IMPRESSION: No acute intracranial process identified. Moderate chronic involutional and white matter changes. Electronically Signed: Luisa Brar MD at 11:50 EDT ,
--- NOTE | 2023-12-10 11:16 | CT_ITS ---
HISTORY: FALL TECHNIQUE: Helically acquired images of the facial bones were obtained without contrast. A radiation dose optimization technique was used for this scan. 422 images. COMPARISON: None. FINDINGS: OSSEOUS STRUCTURES: Nondisplaced bilateral nasal bone fractures. SOFT TISSUES: Mild nasal contusion. PARANASAL SINUSES: Mild mucosal thickening of the left ethmoid air cells. VISUALIZED MASTOID AIR CELLS: Clear. ORBITAL CONTENTS: Bilateral lens resections. Both globes, extraocular muscles and retrobulbar fat appear unremarkable. CT/Sinus/Facial Bone IMPRESSION: Nondisplaced nasal bone fractures. Electronically Signed: Luisa Brar MD at 11:56 EDT ,
--- NOTE | 2023-12-10 11:17 | EDS_ITS ---
<Statement entered by Yumiko Gregorio MD - 12/10/23 16:35> I have personally performed a face to face assessment of the patient and have reviewed the [facility] Note. Patient presents after a trip and fall at home. He complains of facial pain and a few abrasions to the left upper extremity. He denies loss of consciousness and is not on blood thinners. Patient sitting upright in bed in no acute distress. He is alert and answering questions appropriately. Head and neck exam reveals mild nasal edema. EOMI. No focal c-spine tenderness. Heart is regular rate and rhythm. Lungs are clear bilaterally. Abdomen is soft and non-tender. Neuro exam is normal. Skin exam reveals two abrasions to the left upper extremity. CT scans of the brain, c-spine, and facial bones obtained to evaluate for fracture or bleed. CT facial bones is read as non-displaced nasal bone fractures. CT head and c-spine has not yet been read and due to computer problems have been significantly delayed. After waiting several hours patient states he wants to leave and not wait for the formal result on the remaining studies. When the reports are available he will be called if there are any abnormal findings. HPI History of Present Illness Chief Complaint: Fall Narrative Narrative: 83-year-old male states he was carrying his coffee grounds and banana peels outside and when returning indoors was going up 3 steps when his slipper got caught and he fell forward striking his face on the floor of his home. He states his nose took most of the impact. No loss of consciousness. No blood thinners. He had a brief nosebleed which resolved with a cold washcloth and pressure. He is not on blood thinners. He denies headache, vision changes, nausea or vomiting or neck pain. He has minor abrasions to his left arm but no pain. [facility] Medical History Abdominal pain Arthritis Asthma Atherosclerosis of coronary artery without angina pectoris Diabetes History of ST elevation myocardial infarction (STEMI) (09/2012) Nocturia Right groin pain Right hydrocele Sick sinus syndrome Sleep apnea Stroke Urinary incontinence Home Medications ?Medication ?Instructions ?Recorded ?Last Taken ?Type metformin 500 mg tablet,extended 1,000 mg PO BIDCM 05/03/23 12/10/23 History release 24 hr Allergy/AdvReac Type Severity Reaction Status Date / Time cefazolin (From Ancef) Allergy Rash Verified 12/10/23 11:19 clopidogrel bisulfate (From Allergy HEMATOCHEZI Verified 12/10/23 11:19 Plavix) A Penicillins Allergy Anaphylaxis Verified 12/10/23 11:19 atorvastatin AdvReac TIRED Verified 12/10/23 11:19 red yeast rice AdvReac Other Verified 12/10/23 11:19 Surgical History 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) History of coronary angioplasty (09/2012) Status post inguinal hernia repair Social History Smoking Status: Former smoker ROS ROS ED ROS Narrative Eyes: Negative for visual change. GI: Negative for nausea, vomiting. Neuro: Negative for headache, motor/sensory dysfunction. Musc: Negative for joint pain, swelling. EXAM Physical Exam Narrative Exam Narrative: CONST: Patient sitting in no acute distress. EYES: Normal inspection. PERRL, EOMI. ENT: Small red rausch along the bridge of the nose with associated tenderness, no deformity or crepitus, no lacerations. No epistaxis or nasal septal hematoma, no raccoon eyes or Borrego sign, significant wax in both ears but no visible hemotympanums. NECK: Normal inspection. No midline tenderness or step-offs. RESP: No respiratory distress, CTAB. CVS: Regular rate and rhythm, no murmur, no gallop. SKIN: 3 small scattered abrasions left arm. EXTREMITIES: Normal appearance, full ROM upper and lower extremities, no bony tenderness, 2+ radial and DP pulses. NEURO: Alert and answering questions appropriately. PSYCH: Normal affect. Const Vital Signs: 12/10/23 11:06 12/10/23 11:11 12/10/23 15:06 Temperature 96.7 F L Temperature Source Temporal Pulse Rate 84 62 Respiratory Rate 17 18 Respiratory Effort Normal Non-Labored Respiratory Depth Normal Respiratory Pattern Normal Blood Pressure 134/87 H 142/73 H Blood Pressure Mean 102 96 Pulse Ox 98 96 97 Oxygen Delivery Method Room Air Room Air Room Air 12/10/23 15:47 Temperature 98.4 F Temperature Source Pulse Rate 84 Respiratory Rate 16 Respiratory Effort Respiratory Depth Respiratory Pattern Blood Pressure 128/70 H Blood Pressure Mean 89 Pulse Ox 98 Oxygen Delivery Method MDM MDM MDM Narrative Medical decision making narrative: History gathered from: Patient and family Differential: Nasal contusion, fracture, skull fracture, intracranial hemorrhage Patient had a mechanical fall striking his face and injuring his nose. He has mild nasal swelling and abrasions. No active epistaxis and no hematoma. Neurologically intact, no other major injuries. CT scan of the facial bones shows nondisplaced nasal fractures. There was an Internet connectivity issue and the other CTs were not read in timely manner and patient wanted to leave. I discussed symptomatic management with ice, Tylenol, and provided ENT follow-up. CT scans of the brain and cervical spine returned negative and patient was informed of these results by telephone. Radiography Diagnostic Testing: Clinical Impression(s) from Imaging Studies Brain CT 12/10/23 11:16 IMPRESSION: No acute intracranial process identified. Moderate chronic involutional and white matter changes. Electronically Signed: Luisa Brar MD at 11:50 EDT , Cervical Spine CT 12/10/23 11:16 IMPRESSION: No evidence for acute fracture or dislocation in the cervical spine. Multilevel degenerative disc disease as above. Electronically Signed: Luisa Brar MD at 11:53 EDT , Facial/Sinus 12/10/23 11:16 IMPRESSION: Nondisplaced nasal bone fractures. Electronically Signed: Luisa Brar MD at 11:56 EDT , Discharge Plan Triage Chief Complaint: Fall ED Midlevel Provider: Diana Hernandez ED Provider: Yumiko Gregorio Dx/Rx/DC Orders Clinical Impression: Closed head injury, Nasal bone fracture Prescriptions: No Action metformin 500 mg tablet extended release 24 hr 1,000 mg PO BIDCM Primary Care Provider: Tegan Wing NP Referrals: SharonlogarTegan NP, [facility] [Primary Care Provider] - Activity Restrictions/Additional Instructions: Your nasal bones are broken. Ice and take tylenol, follow up with ENT as needed Print Language: Uzbek Disposition Disposition: Home, Self Care Discharge Date/Time: 12/10/23 15:49
[2023-12-10 15:06] VITALS: BP 142/73; PULSE 62; RESP 18; O2SAT 97
[2023-12-10 15:47] VITALS: BP 128/70; PULSE 84; RESP 16; TEMP 36.9; O2SAT 98
== END 2023-12-10 15:49 | disposition home or self-care (01) ==
LOC: ED 12:02
PROVIDERS: Emergency Provider Emergency Medicine; PCP Nurse Practitioner Primary Care; Visit Provider Emergency Medicine
DX: S02.2XXA Fracture of nasal bones, initial encounter for closed fracture (principal); E11.9 Type 2 diabetes mellitus without complications; R04.0 Epistaxis; S40.812A Abrasion of left upper arm, initial encounter; W10.9XXA Fall (on) (from) unspecified stairs and steps, initial encounter; Y92.009 Unspecified place in unspecified non-institutional (private) residence as the place of occurrence of the external cause; I25.10 Atherosclerotic heart disease of native coronary artery without angina pectoris; G47.30 Sleep apnea, unspecified; J45.909 Unspecified asthma, uncomplicated; Z79.84 Long term (current) use of oral hypoglycemic drugs; Z87.891 Personal history of nicotine dependence
CPT/HCPCS: 70450; 70486; 72125; 99282

== ENCOUNTER → 2024-02-20 | Outpatient (CLI) | payer MEDICARE, SELFPAY ==
[2024-02-20 16:39] LABS: Anion Gap 7 (5-15); BUN 11 mg/dL (7-18); BUN/Creat Ratio 12.3 RATIO (10-20); Calcium,Total 9.6 mg/dL (8.5-10.1); Chloride 104 mmol/L (98-107); Creatinine, Serum 0.89 mg/dL (0.70-1.30); EST Glomerular Filtration Rate 86 mL/min (>60); Est Glom Filt Rate - Afr Amer 104 mL/min (>60); Glucose 131 mg/dL (74-106); Magnesium 2.2 mg/dL (1.6-2.6); Potassium 4.1 mmol/L (3.5-5.1); Sodium Level 137 mmol/L (136-145); T4 Free Direct 0.95 ng/dL (0.76-1.46); Thyroid Stim Hormone (TSH) 1.35 uIU/mL (0.358-3.74)
== END | disposition home or self-care (01) ==
LOC: LAB 14:41
PROVIDERS: PCP Nurse Practitioner Primary Care; Referring Provider Nurse Practitioner Family; Visit Provider Nurse Practitioner Family
DX: I47.29 Other ventricular tachycardia (principal); I25.10 Atherosclerotic heart disease of native coronary artery without angina pectoris; Z95.0 Presence of cardiac pacemaker; R00.0 Tachycardia, unspecified
CPT/HCPCS: 36415; 80048; 83735; 84439; 84443

== ENCOUNTER 2024-03-10 13:53 | Observation (INO) | payer MEDICARE, SELFPAY ==
[2024-03-10] VITALS (17 sets, daily range): BP systolic 114–151; BP diastolic 61–80; PULSE 60–102; RESP 14–22; TEMP 36.6–36.9; O2SAT 89–100; BMI 26.1; BMI 24.9
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
--- NOTE | 2024-03-10 15:29 | CT_ITS ---
STUDY: CT BRAIN WITHOUT CONTRAST REASON FOR EXAM: Male, 83 years old. Injury/Pain RADIATION DOSAGE (If Supplied By Facility): CTDIvol = ( 44.99 ) mGy, DLP = ( 779.24 ) mGycm TECHNIQUE: Transaxial CT imaging of the brain was performed without administration of intravenous contrast material. Individualized dose optimization techniques were used for this CT. COMPARISON: 12/10/2023 FINDINGS: Normal soft tissue structures. Normal calvarium. There is mild cerebral atrophy with widening of the extra-axial spaces and ventricular dilatation. There are areas of decreased attenuation within the white matter tracts of the supratentorial brain, consistent with microvascular disease changes. Normal basal ganglia and thalami. Normal brainstem. Normal cerebellum. There is no intracranial hemorrhage. There are no findings of an acute ischemic infarction. Normal visualized paranasal sinuses. CT/Brain/Head without Contrast IMPRESSION: Chronic involutional changes of the brain. No change or acute abnormality. Electronically Signed: Sadiq Chew MD at 16:08 EDT ,
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
--- NOTE | 2024-03-10 15:29 | CT_ITS ---
STUDY: CT CERVICAL SPINE WITHOUT CONTRAST REASON FOR EXAM: Male, 83 years old. Injury/Pain RADIATION DOSAGE (If Supplied By Facility): CTDIvol = ( 19.50 ) mGy, DLP = ( 412.76 ) mGycm TECHNIQUE: High resolution transaxial imaging was performed without contrast material. Sagittal and coronal images were reconstructed. Individualized dose optimization techniques were used for this CT. COMPARISON: 12/10/2023 FINDINGS: No definite acute fracture/dislocation. The cervical junction is intact. C1-C2 articulation is intact. Curvature is within normal limits. There is normal alignment. Facet joints are intact at all levels bilaterally. No jumped facets. There is multilevel spondyloarthropathy. Multilevel degenerative disc disease seen. Multilevel loss of disc height. Multilevel anterior and posterior marginal osteophytes and disc bulges. Multilevel neural foraminal narrowing. Multilevel narrowing of the spinal canal. Visualized paraspinal soft tissues and structures are unremarkable. CT/Spine Cervical without Contras IMPRESSION: There is no definite acute fracture/dislocation. Degenerative changes. Electronically Signed: Sadiq Chew MD at 16:12 EDT ,
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
[2024-03-10 15:41] LABS: Absolute Lymphocyte Count 1.23 X10^3/uL (0.83-4.51); Absolute Neutrophil Count 4.1 X10^3/uL (2.0-7.7); Basophil# 0.02 X10^3/uL; Basophil% 0.3 % (0-1); Eosinophil# 0.04 X10^3/uL; Eosinophils% 0.7 % (0-5); Hematocrit 36.6 % (40-54); Lymphocyte # 1.23 X10^3/ul (0.83-4.51); Lymphocyte % 20.7 % (19-41); Mean Corp Hgb Conc 35.5 g/dL (32-36); Mean Corpuscular Hgb 33.7 pg (27.0-32.0); Mean Corpuscular Volume 94.8 fL (80-94); Mean Platelet Vol. 9.6 fl (6.2-12.0); Monocyte# 0.35 X10^3/uL; Monocyte% 5.9 % (0-10); NRBC Flagged by Analyzer 0 % (0-5); Neutrophil # 4.08 X10^3/uL (2.7-7.7); Neutrophil % 68.7 % (47-70); Platelet Count 208 K/mm3 (150-450); RBC Distribution Width CV 12.4 % (11.6-14.6); RBC Distribution Width SD 42.9 fl (35.1-43.9); Red Blood Count 3.86 M/mm3 (4.6-6.2); White Blood Count 5.9 K/mm3 (4.4-11.0)
[2024-03-10 15:54] LABS: Bedside Glucose 148 mg/dL (74-106)
[2024-03-10 15:56] LABS: ALB/GLOB Ratio 1.1 RATIO (0.9-2.4); AST(SGOT) 30 U/L (15-37); Alanine Aminotransfer ALT/SGPT 30 U/L (16-61); Albumin, Serum 3.9 g/dL (3.2-5.0); Alkaline Phosphatase 76 U/L (45-117); Anion Gap 11 (5-15); BUN 13 mg/dL (7-18); BUN/Creat Ratio 12.1 RATIO (10-20); Calcium,Total 9.9 mg/dL (8.5-10.1); Chloride 105 mmol/L (98-107); Creatinine, Serum 1.07 mg/dL (0.70-1.30); EST Glomerular Filtration Rate 70 mL/min (>60); Est Glom Filt Rate - Afr Amer 85 mL/min (>60); Estimated Creatinine Clearance 46.38 ml/min; Globulin 3.6 g/dL (2.2-4.2); Glucose 156 mg/dL (74-106); Protein, Total 7.5 g/dL (6.4-8.2); Sodium Level 138 mmol/L (136-145)
[2024-03-10 16:38] LABS: Bacteria 0 SEEN /hpf (None Seen); Mucous, Urine 0 SEEN /hpf (<or=2+); Red Blood Cells-Urine 0 SEEN /hpf (0-5); Squamous Epithelial Cells - UA 0 SEEN /hpf (0-5); White Blood Cells 0 SEEN /hpf (0-5)
[2024-03-10 16:39] LABS: Color, Urine Straw (Yellow); Glucose, Dipstick Normal (Normal); Ketone-Dipstick 15 mg/dl (Negative); Leukocyte Esterase-Dipstick Negative /ul (Negative); Nitrite-Dipstick Negative (Negative); Occult Blood-Urine Negative /ul (Negative); Protein-Dipstick 15 mg/dl (Negative); Specific Gravity, Urine 1.005 (1.002-1.030); Urine Bilirubin Dipstick Negative (Negative); Urine Clarity Clear (Clear); Urine Urobilinogen Normal (Normal)
[2024-03-10] MEDS: Ipratropium/Albuterol Sulfate 3 ML AMPUL.NEB INHALATION (17:30)
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
[2024-03-10 21:28] LABS: Alcohol, Blood (Medical)-Serum < 3.0 mg/dL
--- NOTE | 2024-03-10 22:32 | ECHOCS_ITS ---
Reason For Study: Syncope Procedure This was a 2D Doppler, Color Flow transthoracic echocardiogram. Contrast injection was performed. The study was technically difficult. Exam performed in department. Left Ventricle Normal size and thickness. The left ventricular ejection fraction is 65 %. Stage 1 diastolic dysfunction. Right Ventricle Normal right ventricle. Atria The left and right atria are normal. Mitral Valve Moderate mitral annular calcification. Mild (1+) mitral valve insufficiency. Tricuspid Valve Trivial tricuspid valve insufficiency. Right ventricular systolic pressure estimated to be 40 mmHg. Aortic Valve Moderate diffuse aortic valve calcification. Aortic valve leaflet excursion restricted. Suspect mild aortic valve stenosis. Pulmonic Valve The pulmonic valve is not well visualized. Great Vessels Mildly dilated aortic root. Pericardium/Pleural No pericardial effusion. Medication Diluted definity 2ml given slow IV push to enhance endocardial definition. MMode/2D Measurements & Calculations LVIDd: 4.5 cm IVSd: 1.1 cm LVOT diam: 2.0 cm LVIDs: 2.8 cm LVPWd: 1.1 cm FS: 37.5 % LVOT area: 3.2 cm2 Ao root diam: 3.7 cm LAV(MOD-sp2): 35.0 ml LVAd ap4: 22.8 cm2 ACS: 1.0 cm LVLd ap4: 7.1 cm LA dimension: 3.3 cm EDV(MOD-sp4): 59.5 ml EDV(sp4-el): 62.7 ml LVAs ap4: 12.9 cm2 LVLs ap4: 5.7 cm ESV(MOD-sp4): 24.4 ml ESV(sp4-el): 24.6 ml EF(MOD-sp4): 59.0 % EF(sp4-el): 60.7 % SV(MOD-sp4): 35.1 ml SV(sp4-el): 38.1 ml TAPSE: 2.3 cm Time Measurements MV dec time: 0.30 sec Doppler Measurements & Calculations MV E max ronnie: 73.7 cm/sec Lat Peak E' Ronnie: 9.3 cm/sec Med Peak E' Ronnie: 6.0 cm/sec MV A max ronnie: 124.5 cm/sec E/E' lat: 7.9 E/E' med: 12.2 MV E/A: 0.59 MV V2 max: 139.9 cm/sec MV P1/2t max ronnie: 91.0 cm/sec Ao V2 max: 150.0 cm/sec MV max P.9 mmHg MV P1/2t: 110.9 msec Ao max P.0 mmHg MV V2 mean: 61.8 cm/sec MV dec slope: 240.4 cm/sec2 Ao V2 mean: 102.4 cm/sec MV mean P.9 mmHg Ao mean P.9 mmHg MV V2 VTI: 39.6 cm MVA(P1/2t): 2.0 cm2 Ao V2 VTI: 34.2 cm MVA(VTI): 1.9 cm2 AV (velocity ratio): 0.68 XOCHILT(I,D): 2.2 cm2 XOCHILT(V,D): 1.8 cm2 LV V1 max: 86.6 cm/sec MR max ronnie: 493.8 cm/sec SV(LVOT): 74.0 ml LV V1 max P.0 mmHg MR max P.5 mmHg LV V1 mean P.7 mmHg LV V1 mean: 61.1 cm/sec LV V1 VTI: 23.2 cm PA V2 max: 78.0 cm/sec TR max ronnie: 296.4 cm/sec PA max PG (full): 0.16 mmHg TR max P.1 mmHg ECHO/Echo Complete W/ Contrast Interpretation Summary The study was technically difficult. The left ventricular ejection fraction is 65 %. Stage 1 diastolic dysfunction. Mild (1+) mitral valve insufficiency. Moderate mitral annular calcification. Right ventricular systolic pressure estimated to be 40 mmHg. Moderate diffuse aortic valve calcification. Aortic valve leaflet excursion restricted. Suspect mild aortic valve stenosis. Mildly dilated aortic root. Ordering Physician: Tito Molina Performed By: Narinder Washburn RCS
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
[2024-03-10] MEDS: 0.9% Normal Saline (1000mL) 1,000 ML 70 ML IV (23:04)
[2024-03-10 23:11] LABS: Amphetamine Urine VISTA NEGATIVE (<1000 ng/mL); Barbiturate Urine VISTA NEGATIVE (< 200 ng/mL); Benzodiazepine Urine VISTA NEGATIVE (< 200 ng/mL); Cocaine Urine VISTA NEGATIVE (< 300 ng/mL); Ecstacy Urine VISTA NEGATIVE (< 500 ng/mL); Methadone Urine VISTA NEGATIVE (< 300 ng/mL); PCP Urine VISTA NEGATIVE (< 25 ng/mL); THC Urine VISTA NEGATIVE (< 50 ng/mL); Vista UDS pH Range 6
[2024-03-11 02:38] LABS: Bedside Glucose 200 mg/dL (74-106)
[2024-03-11 03:30] VITALS: BP 112/63; PULSE 60; RESP 18; TEMP 36.9; O2SAT 95
--- NOTE | 2024-03-11 05:55 | EKG12_ITS ---
Test Reason : PRE OP Blood Pressure : / mmHG Vent. Rate : 060 BPM Atrial Rate : 060 BPM P-R Int : 262 ms QRS Dur : 112 ms QT Int : 470 ms P-R-T Axes : -01 -33 027 degrees QTc Int : 470 ms Atrial-paced rhythm with prolonged AV conduction Left axis deviation Low voltage QRS Incomplete right bundle branch block Inferior infarct , age undetermined Abnormal ECG When compared with ECG of 10-MAR-2024 16:05, MANUAL COMPARISON REQUIRED, DATA IS UNCONFIRMED Confirmed by Shaheen Clark ([id number]), commercial production editor ROCKY DENISE ([id number]) on 03/11/2024 10:53:56 AM Referred By: Confirmed By:Shaheen Clark
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
[2024-03-11 09:30] VITALS: BP 149/81; PULSE 88; RESP 16; TEMP 36; O2SAT 94
[2024-03-11] MEDS: 0.9% Saline Lock 10 ML Syringe IV (10:20)
--- NOTE | 2024-03-11 11:10 | STRESSREP_ITS ---
Stress Test Report Date: 03/11/2024 Procedure: Pharmacologic stress nuclear imaging study Indications: Syncope Consent: Per the patient Procedure: The patient underwent pharmacologic (Regadenoson 0.4mg ) evaluation with a peak heart rate of 82 beats per minute (60% predicted maximal heart rate) and a peak blood pressure of 114/58 mmHg. The baseline ECG demonstrated electronic atrial pacemaker activity. The peak pharmacologic ECG demonstrated no diagnostic ischemic changes. [There were no cardiac dysrhythmias pretest, during pharmacologic infusion, or recovery]. [There was no complaint of chest discomfort during pharmacologic infusion or recovery]. The patient was injected with 12.0 millicuries of technetium 99m Cardiolite and subsequently rest SPECT Cardiolite nuclear imaging was obtained in the horizontal long, vertical long, and short axis views. The patient underwent pharmacologic (Regadenoson) evaluation. The patient was injected with 34.4 millicuries of technetium 99m Cardiolite and subsequently stress SPECT Cardiolite nuclear imaging was obtained in the horizontal long, vertical long, and short axis views. No gated study available. The examination was stopped secondary to completion of protocol. Rest and stress SPECT Cardiolite nuclear imaging status post realignment, normalization, and attenuation correction demonstrate mildly reduced perfusion of the inferior wall post pharmacological stress. This may denote mild ischemia. Impression: 1. Pharmacologic (Regadenoson) evaluation 2. Peak pharmacologic ECG with no diagnostic ischemic changes. 3. [There were no cardiac dysrhythmias pretest, during pharmacologic infusion, or recovery]. 5. Mildly decreased perfusion post pharmacological stress of the inferior wall suggestive of mild ischemia. This note was generated with [employer] software. It may contain incorrect words, spelling, and punctuation that were not noted in checking the note before signing.
[2024-03-11] MEDS: 0.9% Normal Saline (1000mL) 1,000 ML 70 ML IV (13:22)
[2024-03-11 15:30] VITALS: BP 124/62; PULSE 76; RESP 18; TEMP 36.2; O2SAT 96
--- NOTE | 2024-03-11 16:05 | CASEMGMT ---
Met with patient to complete MCDONALD form. MCDONALD form explained to patient who voiced understanding and signed form. Original form placed in pt?s chart and copy provided to patient. Yany Goff, Discharge Planning Asst
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
[2024-03-11 19:55] VITALS: BP 110/56; PULSE 80; RESP 18; TEMP 36.6; O2SAT 96
[2024-03-11] MEDS: Acetaminophen 500 MG Tablet 1000 MG PO (21:41)
[2024-03-12] MEDS: 0.9% Normal Saline (1000mL) 1,000 ML 70 ML IV (01:29)
[2024-03-12 03:01] VITALS: BP 126/68; PULSE 60; RESP 16; TEMP 36.4; O2SAT 94
[2024-03-12 06:00] VITALS: BP 143/69; PULSE 59; RESP 18; TEMP 36.7; O2SAT 94
--- NOTE | 2024-03-12 09:32 | CASEMGMT ---
FLORINA asked Yany to please send a referral to [facility]. Ivonne Mcgrath [employer]
[2024-03-12 09:52] VITALS: BP 99/52; PULSE 62; RESP 18; TEMP 36.6; O2SAT 94
--- NOTE | 2024-03-12 10:00 | CASEMGMT ---
Addendum entered by Yany Goff 03/13/24 10:35: [facility] asked to cancel referral. Yany Goff DC Planning Asst. Addendum entered by Yany Goff 03/12/24 14:00: Request made to put precert on hold d/t family wanting patient to go to TCU. Yany Gfof DC Planning Asst. Addendum entered by Yany Goff 03/12/24 11:40: [facility] has accepted. Requested precert be started. Yany Goff DC Planning Asst. Original Note: Discharge Planning Referral sent to [facility] via [facility]. Yany Goff DC Planning Asst.
[2024-03-12] MEDS: oxyCODONE 5 MG Tablet PO ×3 (10:15→23:48)
--- NOTE | 2024-03-12 11:54 | CASEMGMT ---
SW went to patient's room and introduced self. SW let patient know that [facility] can take him. SW explained to patient he will stay in [facility] until his insurance approves him. Patient verbalized agreement and understanding. SW let patient know SW will call his son and notify him. SW called patient's son Melchor and notified him of above. Melchor said he was unhappy with this decision as [facility] only gets 2 stars. They would like to know if patient could go to [facility] TCU. SW explained SW will check with patient to see if he is okay with this also as he is his own decision maker. SW explained SW will make a referral to TCU also. SW spoke with patient and explained this information to him. Patient said he is not sure and could he think about it. SW told patient he can, but SW will check back after lunch to get his decision. Patient was in agreement with this plan. SW did make a referral to TCU. Plan: [facility] vs TCU (pending patient's decision, TCU acceptance, and insurance approval. Ivonne LAU
[2024-03-12 15:30] VITALS: BP 129/63; PULSE 61; RESP 18; TEMP 37.1; O2SAT 92
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
[2024-03-12 21:30] VITALS: BP 112/63; PULSE 60; RESP 16; TEMP 36.7; O2SAT 93
[2024-03-13 03:40] VITALS: BP 103/67; PULSE 60; RESP 16; TEMP 36.3; O2SAT 94
[2024-03-13] MEDS: oxyCODONE 5 MG Tablet PO ×2 (09:25→15:25)
[2024-03-13 09:30] VITALS: BP 140/62; PULSE 73; RESP 18; TEMP 36.9; O2SAT 93
--- NOTE | 2024-03-13 10:29 | CASEMGMT ---
Discharge Planning Patient has chosen TCU. Confirmed this with pts son and advised him of active covid on unit. Pts son inquired as to how many days pt would be able to rest before starting therapy. Education provided that pt will need to actively participate in therapy for insurance to cover skilled stay. They both wish to proceed. Sherly updated and asked to begin precert. FLORINA notified. Yany Goff DC Planning Asst.
--- NOTE | 2024-03-13 11:08 | CASEMGMT ---
It was requested by TCU that labs be drawn as they have not been drawn since patient was in the ED. SW sent physician a message requesting labs. Plan: d/c to [facility] TCU pending insurance approval. Ivonne LAU
[2024-03-13 11:39] LABS: Absolute Lymphocyte Count 0.58 X10^3/uL (0.83-4.51); Absolute Neutrophil Count 3.1 X10^3/uL (2.0-7.7); Basophil# 0.03 X10^3/uL; Basophil% 0.7 % (0-1); Eosinophil# 0.09 X10^3/uL; Eosinophils% 2.1 % (0-5); Hematocrit 32.3 % (40-54); Hemoglobin 11.2 g/dL (13.0-16.5); Lymphocyte # 0.58 X10^3/ul (0.83-4.51); Lymphocyte % 13.8 % (19-41); Mean Corp Hgb Conc 34.7 g/dL (32-36); Mean Corpuscular Hgb 33.4 pg (27.0-32.0); Mean Corpuscular Volume 96.4 fL (80-94); Mean Platelet Vol. 8.9 fl (6.2-12.0); Monocyte# 0.35 X10^3/uL; Monocyte% 8.3 % (0-10); NRBC Flagged by Analyzer 0 % (0-5); Neutrophil # 3.13 X10^3/uL (2.7-7.7); Neutrophil % 74.4 % (47-70); POSITIVE DIFFERENTIAL YES; Platelet Count 135 K/mm3 (150-450); RBC Distribution Width CV 12.4 % (11.6-14.6); RBC Distribution Width SD 43.3 fl (35.1-43.9); Red Blood Count 3.35 M/mm3 (4.6-6.2); White Blood Count 4.2 K/mm3 (4.4-11.0)
[2024-03-13 12:04] LABS: Anion Gap 6 (5-15); BUN 9 mg/dL (7-18); BUN/Creat Ratio 9.6 RATIO (10-20); Calcium,Total 8.7 mg/dL (8.5-10.1); Chloride 107 mmol/L (98-107); Creatinine, Serum 0.94 mg/dL (0.70-1.30); EST Glomerular Filtration Rate 81 mL/min (>60); Est Glom Filt Rate - Afr Amer 98 mL/min (>60); Estimated Creatinine Clearance 50.89 ml/min; Glucose 267 mg/dL (74-106); Potassium 3.4 mmol/L (3.5-5.1); Sodium Level 137 mmol/L (136-145)
--- NOTE | 2024-03-13 12:22 | CASEMGMT ---
Patient's son Melchor wanted SW to call him as he has questions. SW called Melchor. Melchor asked about how to get power of ip technology transactions attorney papers for patient's medical as he is not able to make medical decisions anymore. FLORINA explained that in order to do medical power of ip technology transactions attorney papers the patient must be alert and oriented and understand the documents he is signing. SW feels patient is alert and oriented and able to complete documents if he would like to. FLORINA explained that right now it is felt patient can make his own decisions. The power of ip technology transactions attorney only comes into effect when it is felt the patient cannot make decisions. FLORINA let Melchor know these documents can be completed while patient is in the hospital or TCU as long as patient wants to complete the documents. Melchor said he wanted to think about it and will get back to FLORINA. FLORINA in the meantime will talk with patient to see if he is interested in completing Healthcare Power of Township Supervisor papers. Ivonne Mcgrath GILL BOX FIXER SID
--- NOTE | 2024-03-13 13:48 | CASEMGMT ---
Patient was approved for [facility] TCU. SW notified physician and patient will go today. Plan: d/c to [facility] TCU under skilled level of care. Ivonne LAU
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
--- NOTE | 2024-03-13 15:14 | PHA.DC.MR.R ---
Pharmacy [place] Med Reconciliation Pharmacy Service has performed discharge medication reconciliation for this patient upon transfer to TCU. The patient's discharge medication list was reviewed for discrepancies and discrepancies were resolved. Medications at Discharge Home Medications metformin 500 mg tablet,extended release 24 hr 1,000 mg PO BIDCM 05/03/23 oxycodone 5 mg tablet 5 mg PO Q6H PRN PRN Pain Score 4-10 5 days #0 tabs 03/13/24
[2024-03-13 15:25] VITALS: BP 132/65; PULSE 60; RESP 18; TEMP 36.4; O2SAT 94
--- NOTE | 2024-03-13 15:36 | CASEMGMT ---
FLORINA notified patient that he has been approved to go to [facility] today. SW did talk about Healthcare Power of Real Estate Account Executive papers with patient. Patient stated he would want his son Melchor and daughter Berenice. FLORINA explained that usually there is one person as the main POA and then there are options for 2 back-ups. Patient said Melchor would probably be first, but he really would like to have them both as his POA. SW is unable to complete documents at this time. FLORINA called patient's son Melchor and let him know patient's insurance approved him to go to [facility] TCU and patient will go today. FLORINA also let Melchor know about the conversation SW had with patient about POA papers. Plan: d/c to [facility] under skilled level of care. Ivonne LAU
--- NOTE | 2024-03-13 16:38 | NURSING ---
Report called to Bhupendra in TCU. Patient to go to room 5
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
== END 2024-03-13 17:00 | disposition skilled nursing facility (03) ==
LOC: ED 20:54 → PCU 23:59
PROVIDERS: Admitting Provider Internal Medicine; Emergency Provider Emergency Medicine; PCP Nurse Practitioner Primary Care; Visit Provider Family Medicine
DX: R55 Syncope and collapse (principal); I47.20 Ventricular tachycardia, unspecified; S06.9X9A Unspecified intracranial injury with loss of consciousness of unspecified duration, initial encounter; E11.9 Type 2 diabetes mellitus without complications; V87.9XXA Person injured in other specified (collision)(noncollision) transport accidents involving nonmotor vehicle (traffic), initial encounter; Z87.891 Personal history of nicotine dependence; S20.211A Contusion of right front wall of thorax, initial encounter; Z95.0 Presence of cardiac pacemaker; R09.02 Hypoxemia; I25.10 Atherosclerotic heart disease of native coronary artery without angina pectoris; Z79.84 Long term (current) use of oral hypoglycemic drugs; Y92.89 Other specified places as the place of occurrence of the external cause; G47.33 Obstructive sleep apnea (adult) (pediatric); R32 Unspecified urinary incontinence; S00.83XA Contusion of other part of head, initial encounter; S00.33XA Contusion of nose, initial encounter
CPT/HCPCS: 36415; 70450; 71260; 72125; 74177; 78452; 80048; 80053; 80307; 81001; 82077; 82962; 84443; 85025; 93005; 93017; 93306; 93880; 94640; 97110; 97162; 97166; 97530; 97535; 99221; 99285; A9500; J7030; Q9957; A4216; C8929; G0378; J2785

== ENCOUNTER 2024-03-13 17:17 | Inpatient (IN) | payer MEDICARE, SELFPAY ==
[2024-03-13 17:31] VITALS: BP 132/70; PULSE 60; RESP 16; TEMP 36.3; O2SAT 95; BMI 25.4
[2024-03-13 18:26] VITALS: RESP 16
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
[2024-03-13] MEDS: Senna/Docusate Sodium 1 Tablet PO (20:45)
[2024-03-13] MEDS: Acetaminophen 500 MG Tablet 1000 MG PO (20:45)
[2024-03-14] MEDS: Acetaminophen 500 MG Tablet 1000 MG PO ×3 (05:27→21:00)
[2024-03-14] MEDS: Enoxaparin 40 MG/0.4 ML Syringe SC (05:27)
[2024-03-14] MEDS: oxyCODONE 5 MG Tablet PO (05:33)
[2024-03-14 06:57] LABS: Bedside Glucose 228 mg/dL (74-106)
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
[2024-03-14] MEDS: 0.9% Saline Lock 10 ML Syringe IV ×2 (09:59→21:01)
[2024-03-14] MEDS: metFORMIN (XR) 500 MG Tablet 1000 MG PO ×2 (10:02→17:24)
[2024-03-14] MEDS: Senna/Docusate Sodium 1 Tablet PO ×2 (10:03→21:00)
[2024-03-14] MEDS: Tuberculin,Purif.prot.deriv. 50 TU/ML Vial 0.1 ML ID (10:04)
[2024-03-14] MEDS: Magnesium Citrate 300 ML PO (10:08)
--- NOTE | 2024-03-14 10:14 | NURSING ---
PT COMPLAINED OF FEELING CONSTIPATED AND STOMACH HURTING. PRN MAG CITRATE GIVEN. WILL CONTINUE TO MONITOR.
[2024-03-14 10:21] VITALS: BP 108/64; PULSE 60; O2SAT 95
[2024-03-14 13:30] VITALS: BP 170/120
--- NOTE | 2024-03-14 14:39 | CASEMGMT ---
Social Work SW met with patient to complete initial assessment. Introduced self and role. Verified contacts. Patient confirmed code status as full code. Pt does not have advanced directives. SW offered to complete prior to DC, as time allows, and pt agreed. Pt would like to name son and dtr equally, but to name son as guardian. SW educated to [facility] insurance with 03/18 and continued stay is not guaranteed with each review. Pt's goal is to return home alone at [facility]. SW will continue to follow for DC planning. SW received requested from nursing to contact son, Melchor. SW phoned Melchor - full and could not leave a message. Joselin Sue, DEPARTMENT STORE MANAGER FARM SERVICE CONSULTANT
[2024-03-14 15:00] VITALS: BP 140/70
[2024-03-14 15:42] VITALS: BP 170/120; PULSE 95; RESP 16; TEMP 36; O2SAT 97
--- NOTE | 2024-03-14 15:50 | NURSING ---
THIS NURSE NOTIFIED BY AID THAT PT BP WAS HIGH. THIS NURSE FOUND PT DOING THERAPY. THERAPY STATED THAT SHE DID NOT WANT TO PROCIDE WITH THERAPY DUE TO HIGH BP. ASKED PT HOW HE FELT,PT STATED FINE. THIS NURSE LAYED PT DOWN AND RECHECKED BP MANUAL. BP 170/120. TYLENOL GIVEN DUE TO PT STATED HE WAS PAINFUL,LETTING PT REST. WENT BACK WITHIN 30 MINS BP NOW 140/70 MANUAL. ALSO GAVE PT PRUNE JUICE AND BUTTER DUE TO NO RESULTS YET FROM MAG CITRATE. WILL CONTINUE TO MONITOR,RN AWARE.
[2024-03-14 20:00] VITALS: RESP 18
[2024-03-14] MEDS: Menthol/Lanolin/Calamine/Znox 113 GM Tube 1 APPLIC TOPICAL (21:00)
[2024-03-15] MEDS: Acetaminophen 500 MG Tablet 1000 MG PO ×3 (05:48→23:50)
[2024-03-15] MEDS: Enoxaparin 40 MG/0.4 ML Syringe SC (05:49)
[2024-03-15] MEDS: oxyCODONE 5 MG Tablet PO ×3 (05:54→23:51)
[2024-03-15 06:42] VITALS: RESP 17
[2024-03-15] MEDS: metFORMIN (XR) 500 MG Tablet 1000 MG PO ×2 (08:59→17:48)
[2024-03-15] MEDS: Senna/Docusate Sodium 1 Tablet PO ×2 (08:59→23:49)
[2024-03-15] MEDS: Menthol/Lanolin/Calamine/Znox 113 GM Tube 1 APPLIC TOPICAL ×2 (09:00→23:53)
[2024-03-15 10:58] LABS: Bedside Glucose 199 mg/dL (74-106)
[2024-03-15 16:00] VITALS: BP 116/60; PULSE 61; RESP 14; TEMP 36.3; O2SAT 97
--- NOTE | 2024-03-15 20:12 | EKG12_ITS ---
Test Reason : CP Blood Pressure : / mmHG Vent. Rate : 060 BPM Atrial Rate : 060 BPM P-R Int : 248 ms QRS Dur : 104 ms QT Int : 460 ms P-R-T Axes : 000 006 008 degrees QTc Int : 460 ms Atrial-paced rhythm with prolonged AV conduction Low voltage QRS Inferior infarct (cited on or before 10-MAR-2024) Abnormal ECG When compared with ECG of 11-MAR-2024 05:28, No significant change was found Confirmed by LAUREANO KRUEGER, ELADIO ([id number]), publication editor GRACE MANDUJANO ([id number]) on 03/24/2024 8:25:13 AM Referred By: Bulmaro Baltazar Confirmed By:ELADIO TINSLEY MD
[2024-03-15 20:22] VITALS: BP 124/58; PULSE 61; RESP 16; TEMP 36.4; O2SAT 96
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
[2024-03-16 06:21] LABS: Bedside Glucose 174 mg/dL (74-106)
[2024-03-16] MEDS: Enoxaparin 40 MG/0.4 ML Syringe SC (06:30)
[2024-03-16] MEDS: Acetaminophen 500 MG Tablet 1000 MG PO ×3 (06:31→22:44)
[2024-03-16] MEDS: oxyCODONE 5 MG Tablet PO (06:31)
[2024-03-16 07:57] VITALS: BP 138/85; PULSE 63; RESP 16; TEMP 36.3; O2SAT 96
[2024-03-16] MEDS: metFORMIN (XR) 500 MG Tablet 1000 MG PO ×2 (07:59→17:44)
[2024-03-16] MEDS: Menthol/Lanolin/Calamine/Znox 113 GM Tube 1 APPLIC TOPICAL ×2 (08:00→22:46)
[2024-03-16] MEDS: Senna/Docusate Sodium 1 Tablet PO ×2 (08:00→22:45)
--- NOTE | 2024-03-16 08:18 | NURSING ---
Addendum entered by Gloria Hopkins 03/16/24 08:25: Call back from Dr. Baltazar. New order to cancel xrays and order CAT Scan no contrast of thoracic TLS spine. Updated Dr. Baltazar patient will need pre-cert. Verbal order read back. Original Note: Patient c/o back pain 04/24. Patient medicated with Oxycodone 5mg at 0630. Patient has not had any relief. Call placed to Dr. Baltazar. New order for Oxycodone 10mg Q4H PRN, give dose now and order xrays for that area. Verbal order read back.
[2024-03-16] MEDS: oxyCODONE 5 MG Tablet 10 MG PO ×2 (08:31→18:34)
[2024-03-16] MEDS: Baclofen 10 MG Tablet 5 MG PO ×2 (11:48→22:42)
[2024-03-16] MEDS: Pantoprazole Sodium 40 MG Tablet PO (11:48)
[2024-03-16] MEDS: predniSONE 10 MG Tablet PO (11:48)
--- NOTE | 2024-03-16 13:23 | NURSING ---
Per patient prefers to eat two meals a day and requests not to order lunch while in hospital.
[2024-03-16] MEDS: Naproxen 250 MG Tablet PO (17:44)
[2024-03-16] MEDS: 0.9% Saline Lock 10 ML Syringe IV (17:47)
[2024-03-17] MEDS: Acetaminophen 500 MG Tablet 1000 MG PO ×3 (06:51→21:18)
[2024-03-17] MEDS: Baclofen 10 MG Tablet 5 MG PO ×3 (06:52→21:17)
[2024-03-17] MEDS: Enoxaparin 40 MG/0.4 ML Syringe SC (06:52)
[2024-03-17 07:14] LABS: Bedside Glucose 128 mg/dL (74-106)
[2024-03-17] MEDS: Naproxen 250 MG Tablet PO ×2 (08:38→16:44)
[2024-03-17] MEDS: metFORMIN (XR) 500 MG Tablet 1000 MG PO ×2 (08:38→16:44)
[2024-03-17] MEDS: predniSONE 10 MG Tablet PO (08:39)
[2024-03-17] MEDS: Senna/Docusate Sodium 1 Tablet PO ×2 (08:39→21:18)
[2024-03-17] MEDS: Pantoprazole Sodium 40 MG Tablet PO (08:39)
[2024-03-17] MEDS: Menthol/Lanolin/Calamine/Znox 113 GM Tube 1 APPLIC TOPICAL ×2 (08:41→21:19)
[2024-03-17] MEDS: 0.9% Saline Lock 10 ML Syringe IV (08:42)
[2024-03-17 08:47] VITALS: BP 120/48; PULSE 65
[2024-03-17 13:00] VITALS: PULSE 65; RESP 18; O2SAT 94
[2024-03-17 15:32] VITALS: BP 114/66; PULSE 60; RESP 16; TEMP 36.9; O2SAT 96
[2024-03-17] MEDS: oxyCODONE 5 MG Tablet 10 MG PO (17:56)
[2024-03-18] MEDS: Enoxaparin 40 MG/0.4 ML Syringe SC (05:42)
[2024-03-18] MEDS: Acetaminophen 500 MG Tablet 1000 MG PO ×3 (05:43→22:31)
[2024-03-18] MEDS: Baclofen 10 MG Tablet 5 MG PO ×3 (05:43→22:30)
[2024-03-18] MEDS: oxyCODONE 5 MG Tablet 10 MG PO (05:44)
[2024-03-18 06:46] LABS: Bedside Glucose 120 mg/dL (74-106)
[2024-03-18 07:43] LABS: Absolute Lymphocyte Count 1.24 X10^3/uL (0.83-4.51); Absolute Neutrophil Count 2.9 X10^3/uL (2.0-7.7); Basophil# 0.03 X10^3/uL; Basophil% 0.6 % (0-1); Eosinophil# 0.15 X10^3/uL; Eosinophils% 3.1 % (0-5); Hematocrit 31.7 % (40-54); Hemoglobin 11.1 g/dL (13.0-16.5); Lymphocyte # 1.24 X10^3/ul (0.83-4.51); Lymphocyte % 25.8 % (19-41); Mean Corpuscular Hgb 33.5 pg (27.0-32.0); Mean Corpuscular Volume 95.8 fL (80-94); Mean Platelet Vol. 9.1 fl (6.2-12.0); Monocyte% 8.3 % (0-10); NRBC Flagged by Analyzer 0 % (0-5); Neutrophil # 2.91 X10^3/uL (2.7-7.7); Neutrophil % 60.7 % (47-70); Platelet Count 223 K/mm3 (150-450); RBC Distribution Width CV 12.6 % (11.6-14.6); Red Blood Count 3.31 M/mm3 (4.6-6.2); White Blood Count 4.8 K/mm3 (4.4-11.0)
[2024-03-18 08:04] LABS: Anion Gap 7 (5-15); BUN 14 mg/dL (7-18); BUN/Creat Ratio 17.7 RATIO (10-20); Calcium,Total 8.7 mg/dL (8.5-10.1); Chloride 106 mmol/L (98-107); Creatinine, Serum 0.79 mg/dL (0.70-1.30); EST Glomerular Filtration Rate 99 mL/min (>60); Est Glom Filt Rate - Afr Amer 120 mL/min (>60); Estimated Creatinine Clearance 59.79 ml/min; Glucose 158 mg/dL (74-106); Potassium 3.6 mmol/L (3.5-5.1); Sodium Level 138 mmol/L (136-145)
[2024-03-18] MEDS: Senna/Docusate Sodium 1 Tablet PO ×2 (08:19→22:30)
[2024-03-18] MEDS: metFORMIN (XR) 500 MG Tablet 1000 MG PO ×2 (08:19→17:44)
[2024-03-18] MEDS: predniSONE 10 MG Tablet PO (08:19)
[2024-03-18] MEDS: Pantoprazole Sodium 40 MG Tablet PO (08:19)
[2024-03-18] MEDS: Naproxen 250 MG Tablet PO ×2 (08:19→17:44)
[2024-03-18] MEDS: Menthol/Lanolin/Calamine/Znox 113 GM Tube 1 APPLIC TOPICAL ×2 (08:21→22:29)
--- NOTE | 2024-03-18 09:57 | NURSING ---
Addendum entered by Teresa Boo 03/18/24 10:01: Updated resident. Original Note: Called insurance company, no prior auth needed. Order faxed to CT.
[2024-03-18 10:09] VITALS: BMI 25.4
[2024-03-18 14:20] VITALS: BP 119/65; PULSE 61; RESP 16; TEMP 36.4; O2SAT 96
[2024-03-18] MEDS: 0.9% Saline Lock 10 ML Syringe IV ×2 (17:44→22:32)
[2024-03-18] MEDS: Magnesium Citrate 300 ML PO (17:48)
[2024-03-19] MEDS: oxyCODONE 5 MG Tablet 10 MG PO ×2 (00:14→22:29)
[2024-03-19] MEDS: Acetaminophen 500 MG Tablet 1000 MG PO ×3 (05:30→22:31)
[2024-03-19] MEDS: Baclofen 10 MG Tablet 5 MG PO (05:30)
[2024-03-19] MEDS: Enoxaparin 40 MG/0.4 ML Syringe SC (05:30)
--- NOTE | 2024-03-19 06:46 | NURSING ---
Written communication left for Dr. Baltazar requesting if consult appropriate at this time related to lumbar CT scan.
[2024-03-19 06:50] LABS: Bedside Glucose 154 mg/dL (74-106)
[2024-03-19] MEDS: predniSONE 10 MG Tablet PO (08:38)
[2024-03-19] MEDS: Naproxen 250 MG Tablet PO ×2 (08:38→17:34)
[2024-03-19] MEDS: Pantoprazole Sodium 40 MG Tablet PO (08:38)
[2024-03-19] MEDS: metFORMIN (XR) 500 MG Tablet 1000 MG PO ×2 (08:38→17:34)
[2024-03-19] MEDS: Senna/Docusate Sodium 1 Tablet PO ×2 (08:38→22:30)
[2024-03-19] MEDS: 0.9% Saline Lock 10 ML Syringe IV (08:40)
[2024-03-19] MEDS: Menthol/Lanolin/Calamine/Znox 113 GM Tube 1 APPLIC TOPICAL ×2 (08:42→22:31)
[2024-03-19 08:49] VITALS: BP 116/50; PULSE 63; O2SAT 97
--- NOTE | 2024-03-19 09:36 | CASEMGMT ---
Social Work IDT met with patient and conference call with son for care plan meeting. Discussed patient's progress in PT/OT/ST/SN. Educated to [facility] insurance with [employer] 03/21 and continued stay is not guaranteed with each review. Provided pt with written communication on insurance process and copay coverage during stay. Son acknowledged pt will no longer be driving. IDT recommending 24/ care at DC. Offered options of nonskilled HHC, AL or SNF and financial liability. Son agreed pt cannot be home alone and likely will prefer AL. Son confirmed pt can afford OOP cost and to furnish apt. Son visiting this evening and will discuss with pt and family. SW left printed resources for son in pt's room for medical alert, nonskilled HHC, M[facility], [facility] lists. Son to follow up with this worker on decision. SW will continue to follow for DC planning. Joselin Sue, DEMETRICE THREAD LASTER
--- NOTE | 2024-03-19 11:52 | NURSING ---
Barrel Raiser Helper Note; Activity Asset: Sonny Preston is independent in his choice of daily activities with reminders. He will read, watch tv, and welcomes visits from the geological e logger and therapy dog. His son will bring in his dog for pet visits as well when he visits. Staff will encourage social activities, remind him of weekly activities and respect his right to say no.
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
[2024-03-19 14:25] VITALS: PULSE 65; RESP 18; O2SAT 97
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
[2024-03-19 14:52] VITALS: BP 109/61; PULSE 65; RESP 16; TEMP 36.4; O2SAT 97
--- NOTE | 2024-03-19 15:57 | CASEMGMT ---
Social Work SW met with pt to discuss advance directives. FLORINA educated pt to living will and health care POA. Pt stating he does not want to complete these documents until he has spoke with his son. FLORINA provided pt with the Advance Care Planning You Have a Choice Booklet and informed pt if he choses at a later time to complete documents he can reach out to the social services counselor (phone number provided). Pt expresses understanding. MERYL Bess
--- NOTE | 2024-03-19 16:00 | CASEMGMT ---
BIMS (05/30) and PHQ2 (0) interviews completed on this date for MDS assessment. MERYL Bess
--- NOTE | 2024-03-19 16:24 | NURSING ---
Addendum entered by Sean Del Toro 03/19/24 16:30: PT SON KOKI IS AWARE. Original Note: DR. HERNANDEZ IN TO SEE PT. NO SURGERY AT THIS TIME, REFERRED PT TO . IN TO SEE PT ALSO TODAY. WILL DO BACK INJECTION TOMORROW 03/20/24 AT 1330. PT IS TO BE NPO AT MIDNIGHT AND TO HOLD PT LOVENOX. RN AWARE
--- NOTE | 2024-03-20 | NURSING ---
npo at this time per order
[2024-03-20 06:38] LABS: Bedside Glucose 141 mg/dL (74-106)
--- NOTE | 2024-03-20 08:45 | NURSING ---
[facility] Note; MDS for 12/19/2023 Complete
--- NOTE | 2024-03-20 10:03 | NURSING ---
Call to pain management office. Discussed what meds OK to give prior to injection. Per pain management OK to give everything but pain medications. Prednisone not give prior to injection.
[2024-03-20] MEDS: Menthol/Lanolin/Calamine/Znox 113 GM Tube 1 APPLIC TOPICAL ×2 (10:07→21:44)
[2024-03-20] MEDS: Senna/Docusate Sodium 1 Tablet PO ×2 (10:08→21:43)
--- NOTE | 2024-03-20 12:30 | NURSING ---
Addendum entered by Gloria Hopkins 03/20/24 17:42: Patient returned to unit at this time. Original Note: Patient exited the unit at this time for OR.
--- NOTE | 2024-03-20 17:10 | PCM.OPRPT ---
Problems Associated Problem List Diagnoses (1) Radiculopathy of lumbosacral region: (2) Lumbar stenosis with neurogenic claudication: Report of Operation Date of Procedure: 03/20/24 Pre-Operative Diagnosis: Lumbar stenosis with neurogenic claudication and lumbosaral radiculopathy Post-Operative Diagnosis: Same Surgery/Procedure Performed:: L5-S1 LESI Surgeon: Terell Anand Type of Anesthesia: Sedation,Conscious Estimated Blood Loss (mL): Nil Description of Procedure: The patient was admitted to the preoperative area and a time out was performed.? Vital signs were checked and the patient was moved to the procedure area and placed in the prone position.? Standard monitors were applied.? Sterile prep and draped performed in a regular manner.? The L5-S1 interlaminar space was identified under fluoroscopic guidance.? Local anesthesia was administered using Lidocaine 1%, to anesthetize the skin and subcutaneous tissue with 25G needle.? Next a 20G Touhy needle was inserted under fluoroscopic guidance.? Using the loss of resistance technique, the epidural space was identified.? Needle position was confirmed on an AP and lateral views as required.? Contrast material, Omnipaque 3cc, was injected under fluoroscopic guidance and showed appropriate epidurogram and epidural spread.? Negative Blood and CSF aspiration was confirmed.? A mixture of 4ml of 0.25% Bupivacaine and 40 mg of Triamcinolone was injected.? The patient tolerated the procedure well.? The needle was removed intact.? The patient was cleansed, and a Band-Aid was placed. Moving all extremities in recovery area post procedure. Complications None
[2024-03-20 17:51] VITALS: BP 114/53; PULSE 60; RESP 16; TEMP 36.1; O2SAT 93
[2024-03-20] MEDS: predniSONE 10 MG Tablet PO (18:25)
[2024-03-20] MEDS: metFORMIN (XR) 500 MG Tablet 1000 MG PO (18:25)
[2024-03-20] MEDS: 0.9% Saline Lock 10 ML Syringe IV (21:42)
[2024-03-20] MEDS: Acetaminophen 500 MG Tablet 1000 MG PO (21:43)
[2024-03-20 21:45] VITALS: RESP 17
[2024-03-21 06:03] LABS: Absolute Lymphocyte Count 0.52 X10^3/uL (0.83-4.51); Absolute Neutrophil Count 4.2 X10^3/uL (2.0-7.7); Hematocrit 33.1 % (40-54); Hemoglobin 11.4 g/dL (13.0-16.5); Lymphocyte # 0.52 X10^3/ul (0.83-4.51); Lymphocyte % 10.5 % (19-41); Mean Corp Hgb Conc 34.4 g/dL (32-36); Mean Corpuscular Hgb 33.7 pg (27.0-32.0); Mean Corpuscular Volume 97.9 fL (80-94); Monocyte# 0.21 X10^3/uL; Monocyte% 4.2 % (0-10); NRBC Flagged by Analyzer 0 % (0-5); Neutrophil # 4.19 X10^3/uL (2.7-7.7); Neutrophil % 84.7 % (47-70); POSITIVE DIFFERENTIAL YES; Platelet Count 294 K/mm3 (150-450); RBC Distribution Width CV 12.8 % (11.6-14.6); RBC Distribution Width SD 45.6 fl (35.1-43.9); Red Blood Count 3.38 M/mm3 (4.6-6.2)
[2024-03-21] MEDS: Acetaminophen 500 MG Tablet 1000 MG PO ×2 (06:21→21:00)
[2024-03-21] MEDS: Enoxaparin 40 MG/0.4 ML Syringe SC (06:21)
[2024-03-21 06:33] LABS: Bedside Glucose 253 mg/dL (74-106)
[2024-03-21] MEDS: metFORMIN (XR) 500 MG Tablet 1000 MG PO ×2 (08:22→17:00)
[2024-03-21] MEDS: Senna/Docusate Sodium 1 Tablet PO ×2 (08:22→21:01)
[2024-03-21] MEDS: Tuberculin,Purif.prot.deriv. 50 TU/ML Vial 0.1 ML ID (08:23)
[2024-03-21] MEDS: Menthol/Lanolin/Calamine/Znox 113 GM Tube 1 APPLIC TOPICAL ×2 (08:27→21:00)
[2024-03-21 10:08] LABS: Anion Gap 8 (5-15); BUN 13 mg/dL (7-18); BUN/Creat Ratio 14.4 RATIO (10-20); Calcium,Total 9.3 mg/dL (8.5-10.1); Chloride 105 mmol/L (98-107); EST Glomerular Filtration Rate 85 mL/min (>60); Est Glom Filt Rate - Afr Amer 103 mL/min (>60); Estimated Creatinine Clearance 53.15 ml/min; Glucose 245 mg/dL (74-106); Potassium 4.3 mmol/L (3.5-5.1); Sodium Level 135 mmol/L (136-145)
--- NOTE | 2024-03-21 11:29 | CASEMGMT ---
Social Work SW phoned son to follow up on DC plans. Son stated there has not been a decision made yet and asked about timeframe for DC. SW reexplained insurance update was submitted today and continued stay is not guaranteed, with EDC as early as 03/24. However, pt did receive injection today, thus hoping for extended stay. Son stated pt would not be ready to go home by then. SW confirmed and inquired about DC plan from family discussed at POC meeting two days ago about AL. Inquired about the resources left for son to review. Son stated he did not retrieve the resources, but plans to be in to visit pt over the weekend. Son inquired about SNF. SW notified the resources are on pt's bedside table and SW can provide list of [facility]N SNF providers with quality and resource data via [employer] Guide to list of resources for son to review. Son aware SNF is OOP as well. SW requested son contact this worker morning of 03/24 with plan for this worker to begin referrals. Son agreed. Joselin Sue, DISPATCHER TUGBOAT FISHERMAN HELPER
[2024-03-21 14:54] VITALS: BP 101/50; PULSE 66; RESP 15; TEMP 36.4; O2SAT 97
[2024-03-21 22:00] VITALS: PULSE 61; RESP 16; O2SAT 97
[2024-03-22] MEDS: Enoxaparin 40 MG/0.4 ML Syringe SC (06:08)
[2024-03-22] MEDS: Acetaminophen 500 MG Tablet 1000 MG PO ×3 (06:08→22:16)
[2024-03-22 06:27] LABS: Bedside Glucose 203 mg/dL (74-106)
[2024-03-22 06:33] VITALS: PULSE 64; RESP 18; O2SAT 95
[2024-03-22] MEDS: Menthol/Lanolin/Calamine/Znox 113 GM Tube 1 APPLIC TOPICAL ×2 (08:29→22:19)
[2024-03-22] MEDS: metFORMIN (XR) 500 MG Tablet 1000 MG PO ×2 (08:32→17:31)
[2024-03-22] MEDS: Senna/Docusate Sodium 1 Tablet PO ×2 (08:33→22:17)
[2024-03-22 08:34] VITALS: BP 104/51; PULSE 63; O2SAT 94
[2024-03-22 16:00] VITALS: BP 135/63; PULSE 61; RESP 16; TEMP 36.3; O2SAT 96
[2024-03-23] MEDS: Enoxaparin 40 MG/0.4 ML Syringe SC (05:20)
[2024-03-23] MEDS: Acetaminophen 500 MG Tablet 1000 MG PO ×3 (05:20→20:49)
[2024-03-23 05:25] VITALS: RESP 16
[2024-03-23 06:42] LABS: Bedside Glucose 153 mg/dL (74-106)
[2024-03-23] MEDS: Menthol/Lanolin/Calamine/Znox 113 GM Tube 1 APPLIC TOPICAL ×2 (08:28→20:50)
[2024-03-23] MEDS: metFORMIN (XR) 500 MG Tablet 1000 MG PO ×2 (08:28→16:24)
[2024-03-23] MEDS: Senna/Docusate Sodium 1 Tablet PO ×2 (08:29→20:50)
[2024-03-23] MEDS: oxyCODONE 5 MG Tablet 10 MG PO (08:30)
[2024-03-23 08:33] VITALS: BP 146/66; PULSE 63; O2SAT 100
[2024-03-23 15:57] VITALS: BP 140/73; PULSE 80; RESP 18; TEMP 36.4; O2SAT 98
[2024-03-24] MEDS: Enoxaparin 40 MG/0.4 ML Syringe SC (05:31)
[2024-03-24] MEDS: Acetaminophen 500 MG Tablet 1000 MG PO ×3 (05:31→21:06)
[2024-03-24 05:53] LABS: Bedside Glucose 186 mg/dL (74-106)
[2024-03-24 06:21] VITALS: PULSE 65; RESP 16
[2024-03-24] MEDS: oxyCODONE 5 MG Tablet 10 MG PO (08:48)
[2024-03-24] MEDS: metFORMIN (XR) 500 MG Tablet 1000 MG PO ×2 (09:58→17:55)
[2024-03-24] MEDS: Senna/Docusate Sodium 1 Tablet PO ×2 (09:58→21:06)
[2024-03-24] MEDS: Menthol/Lanolin/Calamine/Znox 113 GM Tube 1 APPLIC TOPICAL ×2 (10:01→21:09)
--- NOTE | 2024-03-24 12:10 | CASEMGMT ---
Addendum entered by Joselin Sue 03/24/24 16:47: SW received return call from son. Son visited pt and discussed pt's goals for DC. pt wishes to DC home, however, son stated he watched pt with transfers and toileting, and acknowledged pt needs help, and pt does not have help at home. Son requested either AL or SNF at [facility]. SW to refer to both for [facility] to determine elgibility for AL. Educated to estimated cost per day. Son inquired about [employer] pricing. SW provided. Son wants a referral to [facility] only at this time. SW to place referral and notify son of outcome. Son appreciative. SW sent referral via [employer]Port. Original Note: Social Work SW phoned son to follow up on DC plans. Son stated he still does not know what the plan is and asked how soon this worker needs to know the plan. SW encouraged as soon as possible, preferably today, as discussed during phone call Sunday. Reminded son that insurance only provides a 3 day notice for DC and still needs 24/7 care at [facility]. Son requested to return call in two hours to provide an answer to this worker. SW agreed. Will await return phone call. Joselin Sue, DEMETRICE BREAKER ENGINEER
[2024-03-24 13:52] VITALS: BP 114/60; PULSE 60; RESP 14; TEMP 36.2; O2SAT 98
[2024-03-25] MEDS: Acetaminophen 500 MG Tablet 1000 MG PO ×3 (06:00→21:42)
[2024-03-25] MEDS: Enoxaparin 40 MG/0.4 ML Syringe SC (06:00)
[2024-03-25 06:42] LABS: Bedside Glucose 188 mg/dL (74-106)
[2024-03-25] MEDS: Senna/Docusate Sodium 1 Tablet PO ×2 (08:07→21:42)
[2024-03-25] MEDS: metFORMIN (XR) 500 MG Tablet 1000 MG PO ×2 (08:07→16:52)
[2024-03-25] MEDS: oxyCODONE 5 MG Tablet 10 MG PO (08:11)
[2024-03-25] MEDS: Menthol/Lanolin/Calamine/Znox 113 GM Tube 1 APPLIC TOPICAL ×2 (08:14→21:41)
[2024-03-25 08:15] VITALS: BP 130/73; PULSE 63; O2SAT 100
[2024-03-25 09:02] VITALS: BMI 24.0
[2024-03-25 13:47] VITALS: BP 138/84; PULSE 74; RESP 16; TEMP 36.1; O2SAT 99
[2024-03-25 13:50] VITALS: PULSE 81; RESP 18; O2SAT 96
--- NOTE | 2024-03-25 15:49 | CASEMGMT ---
Social Work Insurance issued LCD 03/27, DC 03/28. SW met with pt to notify of DC date from insurance, explain appeal rights and inquire about DC to [facility]. Pt agreed to DC and transfer to [facility]. SW to contact son to finalize DC plans. SW phoned son to follow up on DC plans, inform of DC date 03/28, explain appeal rights. Notified [facility] SNF can accept, and then will evaluate closer for AL appropriateness. Son confirmed [facility] will require payment of 30 days at admission. SW confirmed. Son replied, well he doesn't have that kind of money. SW questioned funds and gently reminded son he voiced awareness of OOP cost at the time of the care plan meeting and ongoing conversations with this worker. Son stated he does not have access to pt's finances, as that has been a struggle trying to get pt complete POA paperwork. Son stated he has no idea about pt's income or bank account balance but does not pt owns three properties, but does not have life insurance policy. SW informed son that with multiple properties, pt would not qualify for Medicaid, thus pt would need to pay OOP for SNF. Son stated, well he keeps dragging his feet getting his POA paperwork signed, so I can be his financial POA. He always waits until the last minute. FLORINA educated that even with FPOA signed and given to the [employer] to gain access, the [employer] legal department needs to approve those documents, which can take about 1-2 weeks to get an outcome, and reminded son that pt needs to DC in three days. Son expressed pt not wanting make decisions and initiate DC planning. FLORINA reminded son Son FLORINA offered to contact [facility] with pt present, to allow either this worker to get bank account balances or if son could get added to the accounts. Son agreed and said if you can get [pt] to do all of that, more power to you. SW to speak with pt and update son. FLORINA spoke with pt in this worker's office to explain overall situation with payment for SNF. Pt is unsure of a balance of accounts or income. Pt did agree for this worker to phone [facility] [employer] on [address] while pt present to arnie permission for this worker to get verbal information. FLORINA phoned [employer] and spoke with Lona. Pt does have funds to cover 1-2 months of SNF stay. Lona stated pt's dtr, Berenice, is on pt's checking account and can assist with writing a check to [facility]. Lona did confirm that the FPOA will need approved by their legal department and it takes 3-5 business days to process. SW appreciative of information. Pt then in agreement to complete advanced directives. SW returned call to son to update on account balance and pt agreement to complete advanced directives if son could bring those documents that were already drawn up by pt's research attorney, and to bring pt's checkbook for [facility]. Son very surprised but very appreciative of the information and advancement with answers/decisions for pt. Son agreed to provide POA paperwork and checkbook prior to work tomorrow morning. Son stated he can transport pt for DC. SW updated [facility] of DC date and requested specific payment for pt to write check. Updated IDT. Plan: DC 03/28, [facility], intermediate, private pay, part B therapies. DEMETRICE AcostaW
[2024-03-25 17:51] VITALS: BMI 24.0
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
[2024-03-26] MEDS: Acetaminophen 500 MG Tablet 1000 MG PO ×3 (05:47→20:13)
[2024-03-26] MEDS: Enoxaparin 40 MG/0.4 ML Syringe SC (05:47)
[2024-03-26 06:28] LABS: Bedside Glucose 171 mg/dL (74-106)
[2024-03-26] MEDS: metFORMIN (XR) 500 MG Tablet 1000 MG PO ×2 (07:59→18:03)
[2024-03-26] MEDS: Senna/Docusate Sodium 1 Tablet PO ×2 (07:59→20:14)
[2024-03-26] MEDS: Menthol/Lanolin/Calamine/Znox 113 GM Tube 1 APPLIC TOPICAL ×2 (08:00→20:14)
--- NOTE | 2024-03-26 08:07 | MDS.RN ---
Information for the MDS was obtained from review of the clinical record, interview of resident, staff, and direct observation of resident?s care.
--- NOTE | 2024-03-26 10:32 | CASEMGMT ---
Addendum entered by Joselin Sue 03/26/24 11:51: PASRR completed in [facility]. Original Note: Social Work SW coordinated [facility] notary and assisted in witnessing pt completing advanced directives. Copies placed on chart. Assisted pt with writing check to [facility]. SW updated son. Son appreciative. DC paperwork sent to [facility] via [employer]. Joselin Sue, DEMETRICE BENNETTW
[2024-03-26 14:26] VITALS: BP 116/70; PULSE 61; RESP 16; TEMP 36.4; O2SAT 98
[2024-03-26] MEDS: oxyCODONE 5 MG Tablet 10 MG PO (20:20)
[2024-03-27] MEDS: Enoxaparin 40 MG/0.4 ML Syringe SC (05:25)
[2024-03-27] MEDS: Acetaminophen 500 MG Tablet 1000 MG PO ×3 (05:25→20:57)
[2024-03-27 06:23] LABS: Bedside Glucose 161 mg/dL (74-106)
[2024-03-27] MEDS: FLU VACCINE **HIGH DOSE** TV 24-25 180 MCG/0.5 ML SYRINGE IM (09:34)
[2024-03-27] MEDS: metFORMIN (XR) 500 MG Tablet 1000 MG PO ×2 (09:34→18:02)
[2024-03-27] MEDS: Senna/Docusate Sodium 1 Tablet PO ×2 (09:34→20:58)
[2024-03-27] MEDS: Menthol/Lanolin/Calamine/Znox 113 GM Tube 1 APPLIC TOPICAL ×2 (09:35→20:58)
--- NOTE | 2024-03-27 15:39 | MDS.RN ---
MDS pain interview complete
--- NOTE | 2024-03-27 15:47 | CASEMGMT ---
Social Work SW conducted BIMS () and PHQ-2 () completed for MDS assessment. Joselin Sue MSW FOLLOW UP SPECIALIST
[2024-03-27 16:00] VITALS: BP 120/78; PULSE 70; RESP 14; TEMP 36.6; O2SAT 98
[2024-03-27 19:56] VITALS: PULSE 74; RESP 16; O2SAT 96
[2024-03-28] MEDS: Enoxaparin 40 MG/0.4 ML Syringe SC (05:31)
[2024-03-28] MEDS: Acetaminophen 500 MG Tablet 1000 MG PO ×2 (05:31→13:28)
[2024-03-28 05:36] VITALS: PULSE 61; RESP 18; O2SAT 96
[2024-03-28 06:05] LABS: Absolute Lymphocyte Count 1.37 X10^3/uL (0.83-4.51); Absolute Neutrophil Count 3.1 X10^3/uL (2.0-7.7); Basophil# 0.04 X10^3/uL; Basophil% 0.8 % (0-1); Hematocrit 34.9 % (40-54); Hemoglobin 11.9 g/dL (13.0-16.5); Lymphocyte # 1.37 X10^3/ul (0.83-4.51); Lymphocyte % 27.1 % (19-41); Mean Corp Hgb Conc 34.1 g/dL (32-36); Mean Corpuscular Hgb 33.4 pg (27.0-32.0); Mean Platelet Vol. 8.8 fl (6.2-12.0); Monocyte# 0.45 X10^3/uL; Monocyte% 8.9 % (0-10); NRBC Flagged by Analyzer 0 % (0-5); Neutrophil # 3.05 X10^3/uL (2.7-7.7); Neutrophil % 60.4 % (47-70); Platelet Count 348 K/mm3 (150-450); RBC Distribution Width CV 12.8 % (11.6-14.6); RBC Distribution Width SD 45.7 fl (35.1-43.9); Red Blood Count 3.56 M/mm3 (4.6-6.2); White Blood Count 5.1 K/mm3 (4.4-11.0)
[2024-03-28 06:36] LABS: Bedside Glucose 133 mg/dL (74-106)
[2024-03-28 06:36] LABS: Anion Gap 6 (5-15); BUN 13 mg/dL (7-18); BUN/Creat Ratio 14.6 RATIO (10-20); Calcium,Total 9.5 mg/dL (8.5-10.1); Chloride 105 mmol/L (98-107); Creatinine, Serum 0.89 mg/dL (0.70-1.30); EST Glomerular Filtration Rate 87 mL/min (>60); Est Glom Filt Rate - Afr Amer 105 mL/min (>60); Estimated Creatinine Clearance 53.75 ml/min; Glucose 144 mg/dL (74-106); Potassium 4.3 mmol/L (3.5-5.1); Sodium Level 136 mmol/L (136-145)
[2024-03-28] MEDS: metFORMIN (XR) 500 MG Tablet 1000 MG PO (07:55)
[2024-03-28] MEDS: Senna/Docusate Sodium 1 Tablet PO (07:55)
[2024-03-28] MEDS: Menthol/Lanolin/Calamine/Znox 113 GM Tube 1 APPLIC TOPICAL (07:58)
--- NOTE | 2024-03-28 12:42 | CASEMGMT ---
Social Work Son phoned this worker requesting to schedule transport to [facility] and agreeable to pay OOP. SW phoned [facility] to schedule. they can transport at 1400. IDT and [facility] updated. DEMETRICE AcostaW
[2024-03-28 15:28] VITALS: BP 126/67; PULSE 60; RESP 16; TEMP 36.2; O2SAT 96
== END 2024-03-28 15:28 | disposition intermediate care facility (04) | DRG 950 ==
PROVIDERS: Admitting Provider Family Medicine Geriatric Medicine; PCP Nurse Practitioner Primary Care; Referring Provider Family Medicine Geriatric Medicine; Visit Provider Family Medicine Geriatric Medicine
DX: S09.90XD Unspecified injury of head, subsequent encounter (principal); E11.649 Type 2 diabetes mellitus with hypoglycemia without coma; J45.909 Unspecified asthma, uncomplicated; I25.10 Atherosclerotic heart disease of native coronary artery without angina pectoris; E11.65 Type 2 diabetes mellitus with hyperglycemia; G47.30 Sleep apnea, unspecified; M41.9 Scoliosis, unspecified; M51.16 Intervertebral disc disorders with radiculopathy, lumbar region; M48.062 Spinal stenosis, lumbar region with neurogenic claudication; S20.211D Contusion of right front wall of thorax, subsequent encounter; Z79.84 Long term (current) use of oral hypoglycemic drugs; Z95.0 Presence of cardiac pacemaker; Z87.891 Personal history of nicotine dependence; V87.7XXD Person injured in collision between other specified motor vehicles (traffic), subsequent encounter; R55 Syncope and collapse; Z23 Encounter for immunization
CPT/HCPCS: 36415; 71046; 80048; 82962; 85025; 90662; 92507; 92523; 93005; 97110; 97116; 97129; 97130; 97162; 97166; 97530; 97535; 97802; A4216

== ENCOUNTER → 2024-03-18 | Outpatient (CLI) | payer MEDICARE, SELFPAY ==
--- NOTE | 2024-03-18 10:03 | CT_ITS ---
STUDY: CT LUMBAR SPINE WITHOUT CONTRAST REASON FOR EXAM: Male, 83 years old. LOW BACK PAIN RADIATION DOSAGE (If Supplied By Facility): CTDIvol = ( 16.76 ) mGy, DLP = ( 549.97 ) mGycm TECHNIQUE: The patient was scanned in a multi detector CT scanner. High resolution transaxial imaging was performed. Images were obtained from T12 to S1. Sagittal and coronal images were reconstructed. Individualized dose optimization techniques were used for this CT. COMPARISON: None FINDINGS: Normal lumbar lordosis. Mild levoscoliosis centered at L4. Normal vertebrae of the lumbar spine. L1-2: Mild bilobed disc protrusion with a large peripherally calcified left preforaminal and foraminal protrusion (hard disc) produces mild spinal stenosis, mild right neural foraminal stenosis and moderate left neural foraminal stenosis. L2-3: Moderate peripherally calcified bilobed disc protrusion with vacuum disc formation (hard disc) produces moderate spinal stenosis and moderate bilateral neural foraminal stenosis. L3-4: Moderate right facet hypertrophy and mild left facet hypertrophy. Large peripheral calcified broad disc protrusion with vacuum disc formation (hard disc) (produces severe spinal stenosis and moderate bilateral neural foraminal stenosis. L4-5: Moderate bilateral facet hypertrophy and ligament flavum hypertrophy. Large peripherally calcified broad disc protrusion with vacuum disc formation (hard disc) (produces severe spinal stenosis, severe right neural foraminal stenosis with effacement of the right L4 nerve root laterally and moderate left neural foraminal stenosis. L5-S1: Moderate facet hypertrophy and ligament flavum hypertrophy. Moderate broad disc protrusion with vacuum disc formation produce moderate spinal stenosis and moderate bilateral neural foraminal stenosis. Normal visualized paraspinous soft tissue structures. CT/Spine Lumbar without Contrast IMPRESSION: Mild levoscoliosis lumbar spine with degenerative disc disease. Electronically Signed: Evans Kelley MD at 11:14 EDT ,
--- NOTE | 2024-03-18 10:03 | CT_ITS ---
STUDY: CT THORACIC SPINE WITHOUT CONTRAST REASON FOR EXAM: Male, 83 years old. LOW BACK PAIN RADIATION DOSAGE (If Supplied By Facility): CTDIvol = ( 18.42 ) mGy, DLP = ( 631.85 ) mGycm TECHNIQUE: The patient was scanned in a multi detector CT scanner. High resolution imaging was performed. Images were obtained from C7 to L1. Sagittal and coronal images were reconstructed. Individualized dose optimization techniques were used for this CT. COMPARISON: None. FINDINGS: Normal visualized cervical spine. Normal kyphosis of the thoracic spine. There is no substantial scoliosis. Normal thoracic vertebrae and endplates. Normal disc spaces heights. The soft tissue structures are unremarkable. CT/Spine Thoracic without Contras IMPRESSION: Normal unenhanced CT examination of the thoracic spine. Electronically Signed: Evans Kelley MD at 11:39 EDT ,
== END | disposition home or self-care (01) ==
PROVIDERS: PCP Nurse Practitioner Primary Care; Referring Provider Family Medicine Geriatric Medicine; Visit Provider Family Medicine Geriatric Medicine
DX: M54.9 Dorsalgia, unspecified (principal)
CPT/HCPCS: 72128; 72131

== ENCOUNTER 2024-03-20 14:00 | Day surgery (SDC) | payer MEDICARE, SELFPAY ==
[2024-03-20] VITALS (8 sets, daily range): BP systolic 106–115; BP diastolic 62–66; PULSE 60–67; RESP 16–18; TEMP 36.6–36.8; O2SAT 96–99; BMI 25.4
[2024-03-20] MEDS: Lactated Ringers 1,000 ML 15 ML IV (13:52)
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
--- NOTE | 2024-03-20 16:32 | RAD_ITS ---
PROCEDURE: L5-S1 epidural block. DATE OF EXAMINATION: March 20, 2024. INDICATION: Male, 83 years old. Chronic low back pain. FLUOROSCOPY TIME (if supplied): (15.9 seconds) minutes/seconds. 6.31 mGy. One image was obtained. RAD/Spine 1 View Any Level IMPRESSION: Fluoroscopic services provided for L5-S1 epidural block. Electronically Signed: Shakir Soriano MD at 8:37 EDT ,
[2024-03-20] MEDS: Triamcinolone Acetonide 40 MG/ML Vial (16:40)
--- NOTE | 2024-03-20 16:53 | PCM.POST.ANE ---
Anesthesia: Postop Eval I Current Vital Signs Temperature: 97.8 F Pulse Rate: 62 Blood Pressure: 106/62 Respiratory Rate: 18 Pulse Ox: 98 Assessment Airway patent: Yes Spontaneous unlabored respirations: Yes nausea: No Vomiting: No Anesthesia Complication: No Fluid Hydration Crystalloid volume administer (ml): 200 Total IV fluid infused: 200 Progress Note Anesthesia document: Postop Eval 1 completed: Yes
--- NOTE | 2024-03-20 17:38 | POSTOPAN2_ITS ---
Anesthesia Postop Eval I Sum Postop Eval Completion status Anesthesia document: Postop Eval 1 completed: Yes Anesthesia Postop Eval I Summary Anesthesia Postop Eval I Summary: Anesthesia Postop Eval I: Assessment Summary Airway patent Yes 03/20/24 16:53 PAVING [email or web address] Spontaneous unlabored Yes 03/20/24 16:53 PAVING [email or web address] respirations Mental status nausea No 03/20/24 16:53 PAVING [email or web address] Vomiting No 03/20/24 16:53 PAVING [email or web address] Anesthesia Postop Eval I: Fluid Summary Crystalloid volume administer 200 03/20/24 16:53 PAVING [email or web address] (ml) Colloids volume administered ( ml) Blood Product volume administered (ml) Total IV fluid infused 200 03/20/24 16:53 PAVING [email or web address] Anesthesia Postop Eval I: Summary Notes Anesthesia Complication No 03/20/24 16:53 PAVING [email or web address] Anesthesia Complication Comment: Post-operative progress note Anesthesia: Postop Eval II Evaluation Mental status: Awake Pain Level: 0 nausea: No Vomiting: No
--- NOTE | 2024-03-20 17:38 | PCM.POSTANE2 ---
Anesthesia Postop Eval I Sum Postop Eval Completion status Anesthesia document: Postop Eval 1 completed: Yes Anesthesia Postop Eval I Summary Anesthesia Postop Eval I Summary: Anesthesia Postop Eval I: Assessment Summary Airway patent Yes 03/20/24 16:53 IT [email or web address] Spontaneous unlabored Yes 03/20/24 16:53 IT [email or web address] respirations Mental status nausea No 03/20/24 16:53 IT [email or web address].CSIR Vomiting No 03/20/24 16:53 IT [email or web address] Anesthesia Postop Eval I: Fluid Summary Crystalloid volume administer 200 03/20/24 16:53 IT [email or web address] (ml) Colloids volume administered ( ml) Blood Product volume administered (ml) Total IV fluid infused 200 03/20/24 16:53 IT [email or web address] Anesthesia Postop Eval I: Summary Notes Anesthesia Complication No 03/20/24 16:53 IT [email or web address] Anesthesia Complication Comment: Post-operative progress note Anesthesia: Postop Eval II Evaluation Mental status: Awake Pain Level: 0 nausea: No Vomiting: No
== END 2024-03-20 23:00 | disposition home or self-care (01) ==
LOC: SDC 09-17 21:41
PROVIDERS: PCP Nurse Practitioner Primary Care; Visit Provider Anesthesiology
PROC: 3E0S3BZ Introduction of Anesthetic Agent into Epidural Space, Percutaneous Approach (ICD-10-PCS; CPT 62322; principal; 2024-03-20 14:15)
DX: M48.062 Spinal stenosis, lumbar region with neurogenic claudication (principal); E11.9 Type 2 diabetes mellitus without complications; M54.17 Radiculopathy, lumbosacral region; I25.10 Atherosclerotic heart disease of native coronary artery without angina pectoris; Z79.02 Long term (current) use of antithrombotics/antiplatelets; Z79.84 Long term (current) use of oral hypoglycemic drugs; Z79.899 Other long term (current) drug therapy; Z87.891 Personal history of nicotine dependence
CPT/HCPCS: 62323; 64483; 72020

== ENCOUNTER → 2024-03-31 | Outpatient (REF) | payer MEDICARE, SELFPAY ==
[2024-03-31 09:06] LABS: Absolute Lymphocyte Count 1.29 X10^3/uL (0.83-4.51); Absolute Neutrophil Count 2.2 X10^3/uL (2.0-7.7); Basophil# 0.03 X10^3/uL; Basophil% 0.8 % (0-1); Eosinophils% 2.5 % (0-5); Hematocrit 33.8 % (40-54); Hemoglobin 11.6 g/dL (13.0-16.5); Lymphocyte # 1.29 X10^3/ul (0.83-4.51); Lymphocyte % 32.3 % (19-41); Mean Corp Hgb Conc 34.3 g/dL (32-36); Mean Corpuscular Hgb 33.8 pg (27.0-32.0); Mean Corpuscular Volume 98.5 fL (80-94); Mean Platelet Vol. 9.2 fl (6.2-12.0); Monocyte# 0.35 X10^3/uL; Monocyte% 8.8 % (0-10); NRBC Flagged by Analyzer 0 % (0-5); Neutrophil # 2.21 X10^3/uL (2.7-7.7); Neutrophil % 55.1 % (47-70); Platelet Count 283 K/mm3 (150-450); RBC Distribution Width CV 13.1 % (11.6-14.6); RBC Distribution Width SD 46.8 fl (35.1-43.9); Red Blood Count 3.43 M/mm3 (4.6-6.2)
[2024-03-31 09:10] LABS: Anion Gap 10 (5-15); BUN 14 mg/dL (7-18); BUN/Creat Ratio 19.6 RATIO (10-20); Calcium,Total 9.1 mg/dL (8.5-10.1); Chloride 107 mmol/L (98-107); Creatinine, Serum 0.72 mg/dL (0.70-1.30); EST Glomerular Filtration Rate 111 mL/min (>60); Est Glom Filt Rate - Afr Amer 135 mL/min (>60); Glucose 154 mg/dL (74-106); Potassium 3.4 mmol/L (3.5-5.1); Sodium Level 138 mmol/L (136-145)
[2024-03-31 10:45] LABS: Hemoglobin A1c 7.1 % (3.8-5.6)
== END ==
LOC: OLS.SW 05:00
PROVIDERS: PCP Nurse Practitioner Primary Care; Visit Provider Family Medicine
DX: Z02.2 Encounter for examination for admission to residential institution (principal); Z79.899 Other long term (current) drug therapy
CPT/HCPCS: 36415; 80048; 83036; 85025

== ENCOUNTER → 2024-04-07 | Outpatient (REF) | payer MEDICARE, SELFPAY ==
[2024-04-07 09:47] LABS: Anion Gap 10 (5-15); BUN 10 mg/dL (7-18); BUN/Creat Ratio 14.5 RATIO (10-20); Calcium,Total 9.6 mg/dL (8.5-10.1); Chloride 105 mmol/L (98-107); Creatinine, Serum 0.69 mg/dL (0.70-1.30); EST Glomerular Filtration Rate 116 mL/min (>60); Est Glom Filt Rate - Afr Amer 140 mL/min (>60); Glucose 135 mg/dL (74-106); Potassium 3.8 mmol/L (3.5-5.1); Sodium Level 139 mmol/L (136-145)
== END ==
LOC: OLS.SW 05:00
PROVIDERS: PCP Nurse Practitioner Primary Care; Visit Provider Family Medicine
DX: E11.9 Type 2 diabetes mellitus without complications (principal); R55 Syncope and collapse; S09.90XD Unspecified injury of head, subsequent encounter; Z86.73 Personal history of transient ischemic attack (TIA), and cerebral infarction without residual deficits
CPT/HCPCS: 36415; 80048

== ENCOUNTER → 2024-04-25 | Outpatient (REF) | payer MEDICARE, SELFPAY ==
[2024-04-25 08:36] LABS: Anion Gap 5 (5-15); BUN 13 mg/dL (7-18); Calcium,Total 9.7 mg/dL (8.5-10.1); Chloride 106 mmol/L (98-107); Creatinine, Serum 0.76 mg/dL (0.70-1.30); EST Glomerular Filtration Rate 103 mL/min (>60); Est Glom Filt Rate - Afr Amer 125 mL/min (>60); Glucose 142 mg/dL (74-106); Potassium 3.8 mmol/L (3.5-5.1); Sodium Level 139 mmol/L (136-145)
== END ==
LOC: OLS.SW 05:00
PROVIDERS: PCP Nurse Practitioner Primary Care; Visit Provider Family Medicine
DX: R55 Syncope and collapse (principal); E11.65 Type 2 diabetes mellitus with hyperglycemia; I25.10 Atherosclerotic heart disease of native coronary artery without angina pectoris
CPT/HCPCS: 36415; 80048

== ENCOUNTER → 2025-06-09 05:00 | Outpatient (REF) | payer MEDICARE, SELFPAY ==
--- OUTSIDE RECORDS SUMMARY | 2025-06-09 03:24 | XMS RPT_ITS | CCD ---
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 BLOOD SPECIMENOrdering Facility: [facility] Address: [address] [place] [address] Performed By: #### A LLBG ####[facility] LABCLIA [id number] [place] [address] [place] Carboxyhemoglobin (BldA) [Mass fraction] 1.7 % Normal 0.0-2.0 [facility] Comment on above: Order Comment: Speci men Type: ARTERIAL BLOOD SPECIMENOrdering Facility: [facility] Address: [address] [place] [address] Result Comment: Carb oxyhemoglobin Reference Range for Smokers: 2.0-8.0% Performed By: #### A LLBG ####[facility] LABCLIA [id number] [place] [address] [place] Chloride [Moles/Vol] 106 mmol/L High 97-105 [facility] Comment on above: Order Comment: Speci men Type: ARTERIAL BLOOD SPECIMENOrdering Facility: [facility] Address: [address] [place] [address] Performed By: #### A LLBG ####[facility] LAB[facility] [id number] [place] [address] [facility] [place] CO2 (Bld) [Partial pressure] 35 mm Hg Low 36-46 [facility] Comment on above: Order Comment: Speci men Type: ARTERIAL BLOOD SPECIMENOrdering Facility: [facility] Address: [address] [place] [address] Performed By: #### A LLBG ####[facility] LABCLIA [id number] [place] [address] [facility] [place] CO2 adjusted to patient's actual temperature (Bld) [Partial pressure] 35 mmHg Low 36-46 [facility] Comment on above: Order Comment: Speci men Type: ARTERIAL BLOOD SPECIMENOrdering Facility: [facility] Address: [address] [place] [address] Performed By: #### A LLBG ####[facility] LABCLIA [id number] [place] [address] [place] Glucose [Mass/Vol] 192 mg/dL High 60-105 [facility] Comment on above: Order Comment: Speci men Type: ARTERIAL BLOOD SPECIMENOrdering Facility: [facility] Address: [address] [place] [address] Performed By: #### A LLBG ####[facility] LABCLIA [id number] [facility] [address] [place] HCO3 (Bld) [Moles/Vol] 23 mmol/L Normal 22-26 [facility] Comment on above: Order Comment: Speci men Type: ARTERIAL BLOOD SPECIMENOrdering Facility: [facility] Address: [address] [place] [address] Performed By: #### A LLBG ####[facility] LABCLIA [id number] [place] [address] [facility] Hematocrit (Bld) [Volume fraction] 33.9 % Low 39.0-51.0 [facility] Comment on above: Order Comment: Speci men Type: ARTERIAL BLOOD SPECIMENOrdering Facility: [facility] Address: [address] [place] [address] Performed By: #### A LLBG ####[facility] LABCLIA [id number] [place] [address] [place] [facility] Hemoglobin (Bld) [Mass/Vol] 11.1 g/dL Low 13.0-17.0 [facility] Comment on above: Order Comment: Speci men Type: ARTERIAL BLOOD SPECIMENOrdering Facility: [facility] Address: [address] [place] [address] Performed By: #### A LLBG ####[facility] LABCLIA [id number] [facility] [address] [place] Lactate [Moles/Vol] 0.8 mmol/L Normal 0.5-2.2 [facility] Comment on above: Order Comment: Speci men Type: ARTERIAL BLOOD SPECIMENOrdering Facility: [facility] Address: [address] [place] [address] Performed By: #### A LLBG ####[facility] LABCLIA [id number] [facility] [address] [place] Methemoglobin (Bld) [Mass fraction] % Normal 0.0-1.5 [facility] Comment on above: Order Comment: Speci men Type: ARTERIAL BLOOD SPECIMENOrdering Facility: [facility] Address: [address] [place] [address] Performed By: #### A LLBG ####[facility] LABCLIA [id number] [place] [address] [facility] O2 THERAPY RA=Room Air Normal [facility] Comment on above: Order Comment: Speci men Type: ARTERIAL BLOOD SPECIMENOrdering Facility: [facility] Address: [address] [place] [address] Performed By: #### A LLBG ####[facility] LABCLIA [id number] [place] [address] [facility] [place] Oxygen (Bld) [Partial pressure] 61 mm Hg Low 85-95 [facility] Comment on above: Order Comment: Speci men Type: ARTERIAL BLOOD SPECIMENOrdering Facility: [facility] Address: [address] [place] [address] Performed By: #### A LLBG ####[facility] LABCLIA [id number] [place] [address] [facility] Oxygen adjusted to patient's actual temperature (Bld) [Partial pressure] Normal [facility] Comment on above: Order Comment: Speci men Type: ARTERIAL BLOOD SPECIMENOrdering Facility: [facility] Address: [address] [place] [address] Performed By: #### A LLBG ####[facility] LABCLIA [id number] [place] [address] [place] Oxyhemoglobin (BldA) [Mass fraction] 89 % Low 95-98 [facility] Comment on above: Order Comment: Speci men Type: ARTERIAL BLOOD SPECIMENOrdering Facility: [facility] Address: [address] [place] [address] Performed By: #### A LLBG ####[facility] LABCLIA [id number] [facility] [address] [place] pH (Bld) 7.42 [pH] Normal 7.35-7.45 [facility] Comment on above: Order Comment: Speci men Type: ARTERIAL BLOOD SPECIMENOrdering Facility: [facility] Address: [address] [place] [address] Performed By: #### A LLBG ####[facility] LABCLIA [id number] [place] [address] [place] pH adjusted to patient's actual temperature (Bld) 7.42 Normal 7.35-7.45 [facility] Comment on above: Order Comment: Speci men Type: ARTERIAL BLOOD SPECIMENOrdering Facility: [facility] Address: [address] [place] [address] Performed By: #### A LLBG ####[facility] LABCLIA [id number] [place], [place] [address] [place] [address] [place] PO2 / FIO2 RATIO 290 mmHg Low >300 [facility] Comment on above: Order Comment: Speci men Type: ARTERIAL BLOOD SPECIMENOrdering Facility: [facility] Address: [address] [place] [address] Performed By: #### A LLBG ####[facility] LABCLIA [id number] [place] [address] [place] Potassium [Moles/Vol] 3.6 mmol/L Normal 3.5-5.0 [facility] Comment on above: Order Comment: Speci men Type: ARTERIAL BLOOD SPECIMENOrdering Facility: [facility] Address: [address] [place] [address] Performed By: #### A LLBG ####[facility] LABCLIA [id number] [place] [address] [place] Sodium [Moles/Vol] 139 mmol/L Normal 136-144 [facility] Comment on above: Order Comment: Speci men Type: ARTERIAL BLOOD SPECIMENOrdering Facility: [facility] Address: [address] [place] [address] Performed By: #### A LLBG ####[facility] LABCLIA [id number] [place] [address] [place] CBC W Auto Differential pane l (Bld)on 05-21-2025 Basophils (Bld) [#/Vol] 10*3/uL Normal <0.11 [facility] Comment on above: Order Comment: Speci men Type: BLOOD SPECIMENOrdering Facility: [facility] Address: [address] [place] [address] Performed By: #### 5 7021-8 ####[facility] LABCLIA [id number] [address]#### 79274-6 ####[facility] LABCLIA [id number] [address] [place] [facility] Basophils/100 WBC (Bld) 0.2 % Normal [facility] Comment on above: Order Comment: Speci men Type: BLOOD SPECIMENOrdering Facility: [facility] Address: [address] [place] [address] Performed By: #### 5 7021-8 ####[facility] LABCLIA [id number] [address]#### 36466-6 ####[facility] LABCLIA [id number] [address] [place] [facility] Differential cell count method Nom (Bld) Auto Normal [facility] Comment on above: Order Comment: Speci men Type: BLOOD SPECIMENOrdering Facility: [facility] Address: [address] [place] [address] Performed By: #### 5 7021-8 ####[facility] LABCLIA [id number] [address]#### 95950-5 ####[facility] LABCLIA [id number] [address] [place] Eosinophils (Bld) [#/Vol] 10*3/uL Normal <0.46 [facility] Comment on above: Order Comment: Speci men Type: BLOOD SPECIMENOrdering Facility: [facility] Address: [address] [place] [address] Performed By: #### 5 7021-8 ####[facility] LABCLIA [id number] [place], [place] [address] [place] [address] [place]#### 30359-9 ####[facility] LABCLIA [id number] [address] [place] Eosinophils/100 WBC (Bld) 0.0 % Normal [facility] Comment on above: Order Comment: Speci men Type: BLOOD SPECIMENOrdering Facility: [facility] Address: [address] [place] [address] Performed By: #### 5 7021-8 ####[facility] LABCLIA [id number] [address]#### 94880-9 ####[facility] LABCLIA [id number] [address] [place] Erythrocyte distribution width (RBC) [Ratio] 12.1 % Normal 11.5-15.0 [facility] Comment on above: Order Comment: Speci men Type: BLOOD SPECIMENOrdering Facility: [facility] Address: [address] [place] [address] Performed By: #### 5 7021-8 ####[facility] LABCLIA [id number] [address] [place]#### 55788-8 ####[facility] LABCLIA [id number] [address] [place] Hematocrit (Bld) [Volume fraction] 33.6 % Low 39.0-51.0 [facility] Comment on above: Order Comment: Speci men Type: BLOOD SPECIMENOrdering Facility: [facility] Address: [address] [place] [address] Performed By: #### 5 7021-8 ####[facility] LABCLIA [id number] [place], [place] [address] [place] [address]#### 73714-0 ####[facility] LABCLIA [id number] [address] [place] Hemoglobin (Bld) [Mass/Vol] 11.4 g/dL Low 13.0-17.0 [facility] Comment on above: Order Comment: Speci men Type: BLOOD SPECIMENOrdering Facility: [facility] Address: [address] [place] [address] Performed By: #### 5 7021-8 ####[facility] LAB[facility] [id number] [address]#### 12935-0 ####[facility] LABCLIA [id number] [address] Immature granulocytes (Bld) [#/Vol] 0.03 10*3/uL Normal <0.10 [facility] Comment on above: Order Comment: Speci men Type: BLOOD SPECIMENOrdering Facility: [facility] Address: [address] [place] [address] Performed By: #### 5 7021-8 ####[facility] LABCLIA [id number] [address]#### 11550-2 ####[facility] LABCLIA [id number] [address] Immature granulocytes/100 WBC (Bld) 0.5 % Normal [facility] Comment on above: Order Comment: Speci men Type: BLOOD SPECIMENOrdering Facility: [facility] Address: [address] [place] [address] Performed By: #### 5 7021-8 ####[facility] LABCLIA [id number] [address] [place]#### 73976-4 ####[facility] LABCLIA [id number] [place] [address] [place] Lymphocytes (Bld) [#/Vol] 0.62 10*3/uL Low 1.00-4.00 [facility] Comment on above: Order Comment: Speci men Type: BLOOD SPECIMENOrdering Facility: [facility] Address: [address] [place] [address] Performed By: #### 5 7021-8 ####[facility] LABCLIA [id number] [address]#### 55442-8 ####[facility] LABCLIA [id number] [address] [place] Lymphocytes/100 WBC (Bld) 9.7 % Normal [facility] Comment on above: Order Comment: Speci men Type: BLOOD SPECIMENOrdering Facility: [facility] Address: [address] [place] [address] Performed By: #### 5 7021-8 ####[facility] LABCLIA [id number] [address] [place]#### 35564-9 ####[facility] LABCLIA [id number] [place] [address] [place] MCH (RBC) [Entitic mass] 35.5 pg High 26.0-34.0 [facility] Comment on above: Order Comment: Speci men Type: BLOOD SPECIMENOrdering Facility: [facility] Address: [address] [place] [address] Performed By: #### 5 7021-8 ####[facility] LABCLIA [id number] [address]#### 92556-7 ####[facility] LABCLIA [id number] [address] [place] MCHC (RBC) [Mass/Vol] 33.9 g/dL Normal 30.5-36.0 [facility] Comment on above: Order Comment: Speci men Type: BLOOD SPECIMENOrdering Facility: [facility] Address: [address] [place] [address] Performed By: #### 5 7021-8 ####[facility] LABCLIA [id number] [address]#### 36000-5 ####[facility] LABCLIA [id number] [address] [place] MCV (RBC) [Entitic vol] 104.7 fL High 80.0-100.0 [facility] Comment on above: Order Comment: Speci men Type: BLOOD SPECIMENOrdering Facility: [facility] Address: [address] [place] [address] Performed By: #### 5 7021-8 ####[facility] LAB[facility] [id number] [address]#### 02616-1 ####[facility] LABCLIA [id number] [address] [place] Monocytes (Bld) [#/Vol] 0.54 10*3/uL Normal <0.87 [facility] Comment on above: Order Comment: Speci men Type: BLOOD SPECIMENOrdering Facility: [facility] Address: [address] [place] [address] Performed By: #### 5 7021-8 ####[facility] LABCLIA [id number] [address]#### 57864-2 ####[facility] LABCLIA [id number] [address] [place] Monocytes/100 WBC (Bld) 8.4 % Normal [facility] Comment on above: Order Comment: Speci men Type: BLOOD SPECIMENOrdering Facility: [facility] Address: [address] [place] [address] Performed By: #### 5 7021-8 ####[facility] LABCLIA [id number] [facility] [address] [place]#### 75120-5 ####[facility] LABCLIA [id number] [place] [address] [place] Neutrophils (Bld) [#/Vol] 5.22 10*3/uL Normal 1.45-7.50 [facility] Comment on above: Order Comment: Speci men Type: BLOOD SPECIMENOrdering Facility: [facility] Address: [address] [place] [address] Performed By: #### 5 7021-8 ####[facility] LAB[facility] [id number] [place] [address] [place]#### 42517-5 ####[facility] LABCLIA [id number] [place] [address] [place] Neutrophils/100 WBC (Bld) 81.2 % Normal [facility] Comment on above: Order Comment: Speci men Type: BLOOD SPECIMENOrdering Facility: [facility] Address: [address] [place] [address] Performed By: #### 5 7021-8 ####[facility] LABCL[facility] [id number] [place] [address] [place]#### 04017-9 ####[facility] LABCLIA [id number] [place] [address] [place] Nucleated RBC (Bld) [#/Vol] Normal [facility] Comment on above: Order Comment: Speci men Type: BLOOD SPECIMENOrdering Facility: [facility] Address: [address] [place] [address] Performed By: #### 5 7021-8 ####[facility] LABCLIA [id number] [place] [address] [place]#### 06618-1 ####[facility] LABCLIA [id number] [address] [place] Nucleated RBC/100 WBC (Bld) [Ratio] Normal [facility] Comment on above: Order Comment: Speci men Type: BLOOD SPECIMENOrdering Facility: [facility] Address: [address] [place] [address] Performed By: #### 5 7021-8 ####[facility] LAB[facility]IA [id number] [address]#### 23492-0 ####[facility] LABCLIA [id number] [place] [address] [place] Platelet mean volume (Bld) [Entitic vol] 9.3 fL Normal 9.0-12.7 [facility] Comment on above: Order Comment: Speci men Type: BLOOD SPECIMENOrdering Facility: [facility] Address: [address] [place] [address] Performed By: #### 5 7021-8 ####[facility] LAB[facility] [id number] [address] [place] [facility]#### 53308-3 ####[facility] LABCLIA [id number] [place] [address] [place] Platelets (Bld) [#/Vol] 211 10*3/uL Normal 150-400 [facility] Comment on above: Order Comment: Speci men Type: BLOOD SPECIMENOrdering Facility: [facility] Address: [address] [place] [address] Performed By: #### 5 7021-8 ####[facility] LABCLIA [id number] [place] [address] [place]#### 22284-9 ####[facility] LABCLIA [id number] [place] [address] [place] RBC (Bld) [#/Vol] 3.21 10*6/uL Low 4.20-6.00 [facility] Comment on above: Order Comment: Speci men Type: BLOOD SPECIMENOrdering Facility: [facility] Address: [address] [place] [address] Performed By: #### 5 7021-8 ####[facility] [id number] [address]#### 08010-1 ####[facility] LABCLIA [id number] [address] [place] WBC (Bld) [#/Vol] 6.42 10*3/uL Normal 3.70-11.00 [facility] Comment on above: Order Comment: Speci men Type: BLOOD SPECIMENOrdering Facility: [facility] Address: [address] [place] [address] Performed By: #### 5 7021-8 ####[facility] LAB[facility] [id number] [address]#### 58139-0 ####[facility] LABCLIA [id number] [address] CBC panel Auto (Bld)on 05-21 Erythrocyte distribution width (RBC) [Ratio] 12.1 % Normal 11.5-15.0 [facility] Comment on above: Order Comment: Speci men Type: BLOOD SPECIMENOrdering Facility: [facility] Address: [address] [place] [address] Performed By: #### 5 8410-2 ####[facility] LAB[facility] [id number] [address] Hematocrit (Bld) [Volume fraction] 33.0 % Low 39.0-51.0 [facility] Comment on above: Order Comment: Speci men Type: BLOOD SPECIMENOrdering Facility: [facility] Address: [address] [place] [address] Performed By: #### 5 8410-2 ####[facility] LAB[facility] [id number] [place] [id number] [place] Hemoglobin (Bld) [Mass/Vol] 11.3 g/dL Low 13.0-17.0 [facility] Comment on above: Order Comment: Speci men Type: BLOOD SPECIMENOrdering Facility: [facility] Address: [address] [place] [address] Performed By: #### 5 8410-2 ####[facility] [id number] [place] [address] [place] MCH (RBC) [Entitic mass] 35.8 pg High 26.0-34.0 [facility] Comment on above: Order Comment: Speci men Type: BLOOD SPECIMENOrdering Facility: [facility] Address: [address] [place] [address] Performed By: #### 5 8410-2 ####[facility] LABCLIA [id number] [place] [address] [place] MCHC (RBC) [Mass/Vol] 34.2 g/dL Normal 30.5-36.0 [facility] Comment on above: Order Comment: Speci men Type: BLOOD SPECIMENOrdering Facility: [facility] Address: [address] [place] [address] Performed By: #### 5 8410-2 ####[facility] LABCLIA [id number] [place] [address] [place] MCV (RBC) [Entitic vol] 104.4 fL High 80.0-100.0 [facility] Comment on above: Order Comment: Speci men Type: BLOOD SPECIMENOrdering Facility: [facility] Address: [address] [place] [address] Performed By: #### 5 8410-2 ####[facility] LABCLIA [id number] [place] [address] [place] [facility] Platelet mean volume (Bld) [Entitic vol] 8.6 fL Low 9.0-12.7 [facility] Comment on above: Order Comment: Speci men Type: BLOOD SPECIMENOrdering Facility: [facility] Address: [address] [place] [id number] Performed By: #### 5 8410-2 ####[facility] LAB[facility] [id number] [place] [address] [facility] Platelets (Bld) [#/Vol] 182 10*3/uL Normal 150-400 [facility] Comment on above: Order Comment: Speci men Type: BLOOD SPECIMENOrdering Facility: [facility] Address: [facility] [place] [address] Performed By: #### 5 8410-2 ####[facility] [id number] [place] [address] [facility] RBC (Bld) [#/Vol] 3.16 10*6/uL Low 4.20-6.00 [facility] Comment on above: Order Comment: Speci men Type: BLOOD SPECIMENOrdering Facility: [facility] Address: [facility] [place] [address] Performed By: #### 5 8410-2 ####[facility] LABCLIA [id number] [place] [address] [facility] WBC (Bld) [#/Vol] 5.97 10*3/uL Normal 3.70-11.00 [facility] Comment on above: Order Comment: Speci men Type: BLOOD SPECIMENOrdering Facility: [facility] Address: [facility] [place] [address] Performed By: #### 5 8410-2 ####[facility] LAB[facility] [id number] [place] [address] [facility] [place] 05-21-2025 CNPN Telephone (OTMB) KEITH KEVIN ([id number]) 1940 M Date Time Provider Department 05/21/25 RUTHY BOCANEGRA [facility] During your visit today, we recorded the following information about you: Bhupendra Kenney PSS 05/21/2025 5:35 PM Signed Name of Caller: Melchor Kevin Relationship to patient: patient's son Last visit in this department: 05/20/2025 Reason for Call: Other : Patient was seen on 05/20/2025. Melchor said patient lives alone, and currently cannot care for himself with the broken arm. Melchor said Ruthy Hull would refer patient to a snf. Callback number: Bhupendra Kenney, Ruthy Min, BERTRAND.CONE PICKER 05/22/2025 8:57 AM Signed Cora can you please call him and review that I Spoke to son at length during appt, discussed son needs to find and decide on a [facility] facility then speak to that career development coordinator/teacher to find out what is needed, also discussed calling pt's PCP, to perhaps address skilled need related to falls, imbalance, ie need for lower leg weakness, I can address his arm issues only.Ruthy Bocanegra, BERTRAND.CONE PICKER Cora Mcconnell RN 05/22/2025 10:27 AM Signed Spoke with son (Melchor), explained that he would need to find a rehab facility and contact them regarding his dad's expected care. I also, referred him to his dad's PCP for guidance. Son stated his dad is currently in the hospital. I explained he needs to contact social work and have them help facilitate his dad's discharge from hospital to rehab center. Son verbalized understanding. Allergies As of Date: 05/21/2025 Noted Allergy Reaction ATORVASTATIN 03/11/2013 5 - Intolerance Comments: tired DICLOXACILLIN 03/13/2018 6 - Diarrhea PENICILLINS 04/20/2021 10 - Anaphylaxis PLAVIX (CLOPIDOGREL BISULFATE) 03/11/2013 5 - Intolerance Comments: hematochezia RED YEAST RICE 05/16/2011 14 - Other: See Comments Comments: leg pain Date Reviewed: 05/21/2025 Reviewed by: Pam Cook, RN - Unable to Assess Reason for Visit: Referral Request [124] Prescriptions as of 05/22/2025 - Magnesium Oxide 500 mg magnesium tab Take 500 mg by mouth once daily. - HYDROcodone-acetaminophen (NORCO) 5-325 mg per tablet Take 1 tablet by mouth every 6 hours as needed for pain (for severe pain only if your other pain medications are inadequate) for up to 3 days. - acetaminophen (TYLENOL ARTHRITIS ORAL) Take 650 mg by mouth as needed (pain). - metFORMIN ER (GLUCOPHAGE XR) 500 mg 24 hr tablet Take 2 tablets by mouth daily with breakfast. - Lancets Test blood sugar(s) 1 times daily. Dx: Type 2 DM - Controlled E11.9 Insulin: No - blood sugar diagnostic (BLOOD GLUCOSE TEST) test strip Test blood sugar(s) 1 times daily. Dx: Type 2 DM - Controlled E11.9 Insulin: No - multivit,susan,mn/folic/D3/ly news copy editor (ONE A DAY MEN COMPLETE ORAL) Take 1 tablet by mouth once daily. - Blood-Glucose Meter (FedTaxUCH ULTRA2) monitoring kit 1 Each as needed. One Touch Meter Kit Diagnosis: Type 2 DM - Controlled E11.9 Facility-Administered Medications as of 05/22/2025 - NaCl 0.9% iv infusion - NaCl 0.9% iv flush bag - aluminum-magnesium hydroxide-simethicone 200-200-20 mg/5 mL 30 mL - acetaminophen 1,000 mg tab(s) (TYLENOL) - insulin lispro injection (rapid acting) (ADMElog) - dextrose 40 % 15 g - glucagon 1 mg injection - dextrose 10% iv bolus Problem List As Of Date 05/21/2025 Noted Resolved Mixed hyperlipidemia [E78.2] 09/07/2005 Nocturia [R35.1] 09/07/2005 05/21/2025 DM w/o complication type I [E10.9] 09/07/2005 07/12/2016 SCREEN (SEE ALSO ADMISSION) CANCER - COLON [Z*01/11/2009 05/21/2025 DIVERTICULOSIS COLON - NO HEMORRHAGE [K57.30] 01/29/2009 SUMMARY [V999.95] 01/14/2011 03/02/2016 Bradycardia [R00.1] 01/14/2011 05/21/2025 Hypertension [I10] 01/14/2011 Sleep apnea [G47.30] 01/14/2011 Medicare annual wellness visit, subsequent [Z00*05/15/2012 04/10/[address] anterior wall first episode care (HCC)*11/11/2012 05/21/2025 ASHD (arteriosclerotic heart disease) [I25.10] 12/03/2012 Seborrheic Keratoses [L82.1] 01/05/2013 Viral warts, unspecified [B07.9] 01/05/2013 Lipoma [D17.9] 01/05/2013 Other seborrheic dermatitis [L21.8] 01/05/2013 05/21/2025 Solar lentigo [L81.4] 01/05/2013 Actinic skin damage [L57.8] 01/05/2013 Melanocytic nevi of upper extremity or shoulder*01/05/2013 Xerosis cutis [L85.3] 01/05/2013 History of acute anterior wall CT [I25.2] 02/26/2013 Diabetes mellitus type 2, controlled, without c*05/12/2015 04/10/2017 BPH (benign prostatic hyperplasia) [N40.0] 04/01/2016 Controlled type 2 diabetes mellitus without com* Other and unspecified hyperlipidemia [E78.5] 04/10/2017 Tinnitus [H93.19] Right inguinal hernia [K40.90] 12/13/2016 Hyperlipidemia [E78.5] 04/10/2017 04/10/2017 Statin declined [Z53.20] 07/31/2019 05/21/2025 Prostate cancer (HCC) [C61] 10/18/2021 Sick sinus syndrome (HCC) [I49.5] (more content not included)... Normal [facility] CT BRAIN WO IVCONon 05-21-20 CT BRAIN WO IVCON * * *Final Report* * * DATE OF EXAM: May 21 2025 7:52PM [facility] 0504 - CT BRAIN WO IVCON / PROCEDURE REASON: Mental status change, persistent or worsening * * * * Physician Interpretation * * * * EXAMINATION: CT BRAIN WO IVCON CLINICAL HISTORY: Altered mental status, fall TECHNIQUE: Serial axial images without IV contrast were obtained from the vertex to the foramen magnum. MQ: CTBWO_3 CT Radiation dose: Integrated Dose-Length Product (DLP) for this visit = 706.22 mGy*cm CT Dose Reduction Employed: Automated exposure control(AEC) and iterative recon COMPARISON: None. RESULT: Localizer images: Post-operative change: None. Acute change: No evidence of an acute infarct or other acute parenchymal process. Hemorrhage: No evidence of acute intracranial hemorrhage. ECASS hemorrhagic transformation score: Not Applicable Mass Lesion / Mass Effect: There is no evidence of an intracranial mass or extraaxial fluid collection. No significant mass effect. Chronic change: None apparent. Parenchyma: There is moderate generalized volume loss. The brain parenchyma is otherwise within normal limits for age. Ventricles: Ventricular enlargement concordant with the degree of parenchymal volume loss. Paranasal sinuses and skull base: The visualized paranasal sinuses are grossly clear. The skull base and imaged soft tissues are unremarkable. IMPRESSION: No evidence of acute intracranial process. 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 Facility: [facility] Address: [address] [place] [address] Performed By: #### 5 7021-8 ####[facility] LABCLIA [id number] [place] [address] [place] Basophils/100 WBC (Bld) 0.7 % Normal [facility] Comment on above: Order Comment: Speci men Type: BLOOD SPECIMENOrdering Facility: [facility] Address: [address] [place] [address] Performed By: #### 5 7021-8 ####[facility] LABCLIA [id number] [address] [place] Differential cell count method Nom (Bld) Auto Normal [facility] Comment on above: Order Comment: Speci men Type: BLOOD SPECIMENOrdering Facility: [facility] Address: [address] [place] [address] Performed By: #### 5 7021-8 ####[facility] LABCLIA [id number] [place] [address] [place] Eosinophils (Bld) [#/Vol] 0.15 10*3/uL Normal <0.46 [facility] Comment on above: Order Comment: Speci men Type: BLOOD SPECIMENOrdering Facility: [facility] Address: [address] [place] [address] Performed By: #### 5 7021-8 ####[facility] LABCLIA [id number] [address], [place] [address] [place] Eosinophils/100 WBC (Bld) 3.7 % Normal [facility] Comment on above: Order Comment: Speci men Type: BLOOD SPECIMENOrdering Facility: [facility] Address: [address] [place] [address] Performed By: #### 5 7021-8 ####[facility] LABIA [id number] [address], [place] [address] [place] Erythrocyte distribution width (RBC) [Ratio] 11.9 % Normal 11.5-15.0 [facility] Comment on above: Order Comment: Speci men Type: BLOOD SPECIMENOrdering Facility: [facility] Address: [address] [place] [address] Performed By: #### 5 7021-8 ####[facility] LABIA [id number] [address], [place] [address] [place] Hematocrit (Bld) [Volume fraction] 38.1 % Low 39.0-51.0 [facility] Comment on above: Order Comment: Speci men Type: BLOOD SPECIMENOrdering Facility: [facility] Address: [address] [place] [address] Performed By: #### 5 7021-8 ####[facility] LABCLIA [id number] [address], [facility] [place] Hemoglobin (Bld) [Mass/Vol] 13.2 g/dL Normal 13.0-17.0 [facility] Comment on above: Order Comment: Speci men Type: BLOOD SPECIMENOrdering Facility: [facility] Address: [address] [place] [address] Performed By: #### 5 7021-8 ####[facility] LABIA [id number] [place] [address] [place] Immature granulocytes (Bld) [#/Vol] 10*3/uL Normal <0.10 [facility] Comment on above: Order Comment: Speci men Type: BLOOD SPECIMENOrdering Facility: [facility] Address: [address] [place] [address] Performed By: #### 5 7021-8 ####[facility] LABCLIA [id number] [place] [address] [place] Immature granulocytes/100 WBC (Bld) 0.2 % Normal [facility] Comment on above: Order Comment: Speci men Type: BLOOD SPECIMENOrdering Facility: [facility] Address: [address] [place] [address] Performed By: #### 5 7021-8 ####[facility] LABCLIA [id number] [place] [address] [place] Lymphocytes (Bld) [#/Vol] 1.55 10*3/uL Normal 1.00-4.00 [facility] Comment on above: Order Comment: Speci men Type: BLOOD SPECIMENOrdering Facility: [facility] Address: [address] [place] [address] Performed By: #### 5 7021-8 ####[facility] LABCLIA [id number] [place] [address] [place] Lymphocytes/100 WBC (Bld) 38.3 % Normal [facility] Comment on above: Order Comment: Speci men Type: BLOOD SPECIMENOrdering Facility: [facility] Address: [address] [place] [address] Performed By: #### 5 7021-8 ####[facility] LABCLIA [id number] [place] [address] [place] MCH (RBC) [Entitic mass] 34.8 pg High 26.0-34.0 [facility] Comment on above: Order Comment: Speci men Type: BLOOD SPECIMENOrdering Facility: [facility] Address: [address] [place] [address] Performed By: #### 5 7021-8 ####[facility] LABCLIA [id number] [place] [address] [place] MCHC (RBC) [Mass/Vol] 34.6 g/dL Normal 30.5-36.0 [facility] Comment on above: Order Comment: Speci men Type: BLOOD SPECIMENOrdering Facility: [facility] Address: [address] [place] [address] Performed By: #### 5 7021-8 ####[facility] LABCLIA [id number] [place] [address] [place] MCV (RBC) [Entitic vol] 100.5 fL High 80.0-100.0 [facility] Comment on above: Order Comment: Speci men Type: BLOOD SPECIMENOrdering Facility: [facility] Address: [address] [place] [address] Performed By: #### 5 7021-8 ####[facility] LABIA [id number] [place] [address] [place] Monocytes (Bld) [#/Vol] 0.44 10*3/uL Normal <0.87 [facility] Comment on above: Order Comment: Speci men Type: BLOOD SPECIMENOrdering Facility: [facility] Address: [address] [place] [address] Performed By: #### 5 7021-8 ####[facility] LABCLIA [id number] [place] [address] [place] Monocytes/100 WBC (Bld) 10.9 % Normal [facility] Comment on above: Order Comment: Speci men Type: BLOOD SPECIMENOrdering Facility: [facility] Address: [address] [place] [address] Performed By: #### 5 7021-8 ####[facility] LABCLIA [id number] [address] [address] [place] Neutrophils (Bld) [#/Vol] 1.87 10*3/uL Normal 1.45-7.50 [facility] Comment on above: Order Comment: Speci men Type: BLOOD SPECIMENOrdering Facility: [facility] Address: [address] [place] [address] Performed By: #### 5 7021-8 ####[facility] LABCLIA [id number] [place] [address] [place] Neutrophils/100 WBC (Bld) 46.2 % Normal [facility] Comment on above: Order Comment: Speci men Type: BLOOD SPECIMENOrdering Facility: [facility] Address: [address] [place] [address] Performed By: #### 5 7021-8 ####[facility] LABCLIA [id number] [place] [address] [place] Nucleated RBC (Bld) [#/Vol] 10*3/uL Normal <0.01 [facility] Comment on above: Order Comment: Speci men Type: BLOOD SPECIMENOrdering Facility: [facility] Address: [address] [place] [address] Performed By: #### 5 7021-8 ####[facility] LABCLIA [id number] [place] [address] [place] Nucleated RBC/100 WBC (Bld) [Ratio] 0.0 /100 WBC Normal [facility] Comment on above: Order Comment: Speci men Type: BLOOD SPECIMENOrdering Facility: [facility] Address: [address] [place] [address] Performed By: #### 5 7021-8 ####[facility] LABCLIA [id number] [address] [address] [place] Platelet mean volume (Bld) [Entitic vol] 9.2 fL Normal 9.0-12.7 [facility] Comment on above: Order Comment: Speci men Type: BLOOD SPECIMENOrdering Facility: [facility] Address: [address] [place] [address] Performed By: #### 5 7021-8 ####[facility] LABIA [id number] [address] [address] [place] Platelets (Bld) [#/Vol] 240 10*3/uL Normal 150-400 [facility] Comment on above: Order Comment: Speci men Type: BLOOD SPECIMENOrdering Facility: [facility] Address: [address] [place] [address] Performed By: #### 5 7021-8 ####[facility] LABIA [id number] [address] [address] [place] RBC (Bld) [#/Vol] 3.79 10*6/uL Low 4.20-6.00 [facility] Comment on above: Order Comment: Speci men Type: BLOOD SPECIMENOrdering Facility: [facility] Address: [address] [place] [address] Performed By: #### 5 7021-8 ####[facility] LABIA [id number] [address] [address] [place] WBC (Bld) [#/Vol] 4.05 10*3/uL Normal 3.70-11.00 [facility] Comment on above: Order Comment: Speci men Type: BLOOD SPECIMENOrdering Facility: [facility] Address: [address] [place] [address] Performed By: #### 5 7021-8 ####[facility] LABIA [id number] [address] [address] [place] Comprehensive metabolic 2000 panelon 02-14-2025 Albumin [Mass/Vol] 4.7 g/dL Normal 3.9-4.9 [facility] Comment on above: Order Comment: Speci men Type: BLOOD SPECIMENOrdering Facility: [facility] Address: [address] [place] [address] Performed By: #### 2 4323-8, LIPNF ####[facility] LABCLIA [id number] [place] [address] [place] ALP [Catalytic activity/Vol] 56 U/L Normal 38-113 [facility] Comment on above: Order Comment: Speci men Type: BLOOD SPECIMENOrdering Facility: [facility] Address: [address] [place] [address] Performed By: #### 2 4323-8, LIPNF ####[facility] LABCLIA [id number] [place] [address] [place] ALT [Catalytic activity/Vol] 12 U/L Normal 10-54 [facility] Comment on above: Order Comment: Speci men Type: BLOOD SPECIMENOrdering Facility: [facility] Address: [address] [place] [address] Performed By: #### 2 4323-8, LIPNF ####[facility] LABCLIA [id number] [place] [address] [place] Anion gap [Moles/Vol] 14 mmol/L Normal 8-15 [facility] Comment on above: Order Comment: Speci men Type: BLOOD SPECIMENOrdering Facility: [facility] Address: [address] [place] [address] Performed By: #### 2 4323-8, LIPNF ####[facility] LABCLIA [id number] [place] [id number] [place] AST [Catalytic activity/Vol] 20 U/L Normal 14-40 [facility] Comment on above: Order Comment: Speci men Type: BLOOD SPECIMENOrdering Facility: [facility] Address: [address] [place] [address] Performed By: #### 2 4323-8, LIPNF ####[facility] LABCLIA [id number] [place] [id number] [place] Bilirubin [Mass/Vol] 0.5 mg/dL Normal 0.2-1.3 [facility] Comment on above: Order Comment: Speci men Type: BLOOD SPECIMENOrdering Facility: [facility] Address: [address] [place] [address] Performed By: #### 2 4323-8, LIPNF ####[facility] LABCLIA [id number] [place] [address] [place] Calcium [Mass/Vol] 10.3 mg/dL High 8.5-10.2 [facility] Comment on above: Order Comment: Speci men Type: BLOOD SPECIMENOrdering Facility: [facility] Address: [address] [place] [address] Performed By: #### 2 4323-8, LIPNF ####[facility] LABCLIA [id number] [place] [address] [place] Chloride [Moles/Vol] 100 mmol/L Normal 98-107 [facility] Comment on above: Order Comment: Speci men Type: BLOOD SPECIMENOrdering Facility: [facility] Address: [address] [place] [address] Performed By: #### 2 4323-8, LIPNF ####[facility] LABCLIA [id number] [place] [address] [place] CO2 [Moles/Vol] 24 mmol/L Normal 22-30 [facility] Comment on above: Order Comment: Speci men Type: BLOOD SPECIMENOrdering Facility: [facility] Address: [address] [place] [address] Performed By: #### 2 4323-8, LIPNF ####[facility] LABCLIA [id number] [place] [id number] [place] Creatinine [Mass/Vol] 0.88 mg/dL Normal 0.73-1.22 [facility] Comment on above: Order Comment: Speci men Type: BLOOD SPECIMENOrdering Facility: [facility] Address: [address] [place] [address] Performed By: #### 2 4323-8, LIPNF ####[facility] [id number] [place] [address] [place] eGFRcr SerPlBld CKD-EPI 2020 84 mL/min/1.73m??? Normal >=60 [facility] Comment on above: Order Comment: Vera men Type: BLOOD SPECIMENOrdering Facility: [facility] Address: [address] [place] [address] Result Comment: Cristy mated Glomerular Filtration Rate (eGFR) is calculated using the 2020 CKD-EPI creatinine equation. This equation utilizes serum creatinine, sex, and age as parameters. The creatinine assay has traceable calibration to isotope dilution-mass spectrometry. Refer to KDIGO guidelines for clinical interpretation. In patients with unstable renal function, e.g. those with acute kidney injury, the eGFR may not accurately reflect actual GFR. Performed By: #### 2 4323-8, LIPNF ####[facility] LABIA [id number] [place] [address] [place] Glucose [Mass/Vol] 165 mg/dL High 74-99 [facility] Comment on above: Order Comment: Vera monterroso Type: BLOOD SPECIMENOrdering Facility: [facility] Address: [address] [place] [address] Result Comment: The [place] Diabetes Association (ADA) provides guidance for cutoff values for fasting glucose and random glucose. The ADA defines fasting as no caloric intake for at least 8 hours. Fasting plasma glucose results between 100 to 125 mg/dL indicate increased risk for diabetes (prediabetes). Fasting plasma glucose results greater than or equal to 126 mg/dL meet the criteria for diagnosis of diabetes. In the absence of unequivocal hyperglycemia, results should be confirmed by repeat testing. In a patient with classic symptoms of hyperglycemia or hyperglycemic crisis, random plasma glucose results greater than or equal to 200 mg/dL meet the criteria for diagnosis of diabetes. Reference: Standards of Medical Care in Diabetes 2016, [place] Diabetes Association. Diabetes Care. 2016.39(Suppl 1). Performed By: #### 2 4323-8, LIPNF ####[facility] LABCLIA [id number] [address] [address] [place] Potassium [Moles/Vol] 4.6 mmol/L Normal 3.7-5.1 [facility] Comment on above: Order Comment: Speci men Type: BLOOD SPECIMENOrdering Facility: [facility] Address: [address] [place] [address] Performed By: #### 2 4323-8, LIPNF ####[facility] LABCLIA [id number] [place] [id number] [place] Protein [Mass/Vol] 7.2 g/dL Normal 6.3-8.0 [facility] Comment on above: Order Comment: Speci men Type: BLOOD SPECIMENOrdering Facility: [facility] Address: [address] [place] [address] Performed By: #### 2 4323-8, LIPNF ####[facility] LABIA [id number] [place] [address] [place] Sodium [Moles/Vol] 138 mmol/L Normal 136-144 [facility] Comment on above: Order Comment: Speci men Type: BLOOD SPECIMENOrdering Facility: [facility] Address: [address] [place] [address] Performed By: #### 2 4323-8, LIPNF ####[facility] LABCLIA [id number] [place] [id number] [place] Urea nitrogen [Mass/Vol] 14 mg/dL Normal 9-24 [facility] Comment on above: Order Comment: Speci men Type: BLOOD SPECIMENOrdering Facility: [facility] Address: [address] [place] [address] Performed By: #### 2 4323-8, LIPNF ####[facility] LABCLIA [id number] [place] [id number] [place] HbA1c (Bld)on 02-14-2025 Average glucose Estimated from glycated hemoglobin (Bld) [Mass/Vol] 151 mg/dL Normal [facility] Comment on above: Order Comment: Vera monterroso Type: BLOOD SPECIMENOrdering Facility: [facility] Address: [address] [place] [address] Result Comment: eAG: (Estimated average glucose) is a calculated value from HgbA1c and is customer operations representative of the average blood glucose level in the last 2-3 month period. Performed By: #### 5 5454-3 ####[facility] LABCLIA [id number] [place] [address] [place] HbA1c (Bld) [Mass fraction] 6.9 % High 4.3-5.6 [facility] Comment on above: Order Comment: Vera monterroso Type: BLOOD SPECIMENOrdering Facility: [facility] Address: [address] [place] [address] Result Comment: Amer ican Diabetes Association guidelines indicate that patients with HgbA1c in the range 5.7-6.4% are at increased risk for development of diabetes, and intervention by lifestyle modification may be beneficial. HgbA1c greater or equal to 6.5% is considered diagnostic of diabetes. Performed By: #### 5 5454-3 ####[facility] LABCLIA [id number] [place] [address] [place] LIPID PANEL, NONFASTINGon Cholesterol [Mass/Vol] 210 mg/dL High <200 [facility] Comment on above: Order Comment: Vera men Type: BLOOD SPECIMENOrdering Facility: [facility] Address: [address] [place] [address] Result Comment: <200 mg/dL, Desirable 200-239 mg/dL, Borderline high >239 mg/dL, High Performed By: #### 2 4323-8, LIPNF ####[facility] LABCLIA [id number] [place] [id number] [place] HDL CHOLESTEROL, NF 40 mg/dL Normal >39 [facility] Comment on above: Order Comment: Speci men Type: BLOOD SPECIMENOrdering Facility: [facility] Address: [address] [place] [address] Result Comment: 40-5 9 mg/dL, Acceptable >59 mg/dL, High: Negative risk factor for coronary heart disease <40 mg/dL, Low: Positive risk factor for coronary heart disease Performed By: #### 2 4323-8, LIPNF ####[facility] LABCLIA [id number] [address] OF [place] LDL CHOLESTEROL CALCULATED, NF 120 mg/dL High <100 [facility] Comment on above: Order Comment: Speci men Type: BLOOD SPECIMENOrdering Facility: [facility] Address: [address] [place] [address] Result Comment: <100 mg/dL, Optimal 100-129 mg/dL, Near optimal/above optimal 130-159 mg/dL, Borderline high 160-189 mg/dL, High >189 mg/dL, Very high Secondary prevention optimal LDL Cholesterol levels are recommended to be <70 mg/dL LDL cholesterol is calculated using the Fuller-NIH equation. Performed By: #### 2 4323-8, LIPNF ####[facility] LABCLIA [id number] [address] OF [facility] LDL/HDL RATIO, NF 3.00 mg/dL High <2.54 [facility] Comment on above: Order Comment: Speci men Type: BLOOD SPECIMENOrdering Facility: [facility] Address: [address] [place] [address] Result Comment: Refe lalithace: 1. National Cholesterol Education Program ATP III Guideline At-A-Glance Quick Desk Reference: National Heart, Lung, and Blood Slater. National Institutes of Health. 2001: NIH Publication No. 01-3305. 2. An International Atherosclerosis Society position paper: global recommendations for the management of dyslipidemia: executive summary, Atherosclerosis. 2014: 232(2):410-413. Performed By: #### 2 4323-8, LIPNF ####[facility] LABCLIA [id number] [address] [id number] [address] [place] NON HDL CHOL, NF 170 mg/dL High <130 [facility] Comment on above: Order Comment: Speci men Type: BLOOD SPECIMENOrdering Facility: [facility] Address: [address] [place] [address] Result Comment: <130 mg/dL, Optimal 130-159 mg/dL, Near optimal/above optimal 160-189 mg/dL, Borderline high 190-219 mg/dL, High >219 mg/dL, Very high Secondary prevention optimal non HDL Cholesterol levels are recommended to be <100 mg/dL Performed By: #### 2 4323-8, LIPNF ####[facility] LABCLIA [id number] [place] [address] [place] T CHOL/HDL RATIO NF 5.25 mg/dL High <5.10 [facility] Comment on above: Order Comment: Speci men Type: BLOOD SPECIMENOrdering Facility: [facility] Address: [address] [place] [address] Performed By: #### 2 4323-8, LIPNF ####[facility] LABCLIA [id number] [place] [address] [place] TRIGLYCERIDES, NF 282 mg/dL High <150 [facility] Comment on above: Order Comment: Speci men Type: BLOOD SPECIMENOrdering Facility: [facility] Address: [address] [place] [address] Result Comment: <150 mg/dL, Normal 150-199 mg/dL, Borderline high 200-499 mg/dL, High >499 mg/dL, Very high Performed By: #### 2 4323-8, LIPNF ####[facility] LABCLIA [id number] [place] [address] [place] VLDL CHOLESTEROL, NF 49 mg/dL High <30 [facility] Comment on above: Order Comment: Speci men Type: BLOOD SPECIMENOrdering Facility: [facility] Address: [address] [place] [address] Performed By: #### 2 4323-8, LIPNF ####[facility] LABIA [id number] [place] [address] [place] PSA/PROSTATE SPECIFIC ANTIGE N SCREENINGon 02-14-2025 Prostate specific Ag [Mass/Vol] ng/mL Normal <2.60 [facility] Comment on above: Order Comment: Speci men Type: BLOOD SPECIMENOrdering Facility: [facility] Address: [address] [place] [address] Result Comment: Tota l PSA test methodology used is the Electrochemiluminescence Immunoassay by [employer]. Total PSA values by differing methodologies cannot be interchanged. Performed By: #### P SAS1 ####[facility] LABIA [id number] [place] [address] [place] Urinalysis complete panel (U )on 02-14-2025 Bacteria LM.HPF (Urine sed) [#/Area] Negative Normal Negative [facility] Comment on above: Order Comment: Speci men Type: URINE SPECIMENOrdering Facility: [facility] Address: [address] [place] [address] Performed By: #### 2 4356-8 ####[facility] LABIA [id number] [place] [address] [place] Bilirubin Ql (U) 1+ Abnormal Negative [facility] Comment on above: Order Comment: Speci men Type: URINE SPECIMENOrdering Facility: [facility] Address: [address] [place] [address] Result Comment: Sugg est correlation with clinical findings and serum bilirubin if clinically indicated. Performed By: #### 2 4356-8 ####[facility] LABIA [id number] [place] [address] [place] CALCIUM OXALATE CRYSTALS (UA) Few Abnormal None Seen [facility] Comment on above: Order Comment: Speci men Type: URINE SPECIMENOrdering Facility: [facility] Address: [address] [place] [address] Performed By: #### 2 4356-8 ####[facility] LABCLIA [id number] [address] [place] [address] [place] Clarity (Unsp spec) Clear Normal Clear [facility] Comment on above: Order Comment: Speci men Type: URINE SPECIMENOrdering Facility: [facility] Address: [address] [place] [address] Performed By: #### 2 4356-8 ####[facility] LABCLIA [id number] [address] [place] [address] [place] Color (U) Dark Yellow Abnormal Yellow [facility] Comment on above: Order Comment: Speci men Type: URINE SPECIMENOrdering Facility: [facility] Address: [address] [place] [address] Performed By: #### 2 4356-8 ####[facility] LABCLIA [id number] [place] [address] [place] Epithelial cells LM.HPF (Urine sed) [#/Area] None Seen Normal [facility] Comment on above: Order Comment: Speci men Type: URINE SPECIMENOrdering Facility: [facility] Address: [address] [place] [address] Performed By: #### 2 4356-8 ####[facility] LABCLIA [id number] [address] [place] [address] [place] Glucose Test strip (U) [Mass/Vol] Negative Normal Negative [facility] Comment on above: Order Comment: Speci men Type: URINE SPECIMENOrdering Facility: [facility] Address: [address] [place], [place] [address] Performed By: #### 2 4356-8 ####[facility] LABCLIA [id number] [address] [address] [place] Hemoglobin Ql (U) Negative Normal Negative [facility] Comment on above: Order Comment: Speci men Type: URINE SPECIMENOrdering Facility: [facility] Address: [address] [place] [address] Performed By: #### 2 4356-8 ####[facility] LABCLIA [id number] [place] [address] [place] Hyaline casts (Urine sed) [#/Area] 1-3 /LPF Abnormal 0 /LPF [facility] Comment on above: Order Comment: Speci men Type: URINE SPECIMENOrdering Facility: [facility] Address: [address] [place] [address] Performed By: #### 2 4356-8 ####[facility] LABCLIA [id number] [place] [address] [place] Ketones Ql (U) Trace Abnormal Negative [facility] Comment on above: Order Comment: Speci men Type: URINE SPECIMENOrdering Facility: [facility] Address: [address] [place] [address] Performed By: #### 2 4356-8 ####[facility] LABCLIA [id number] [place] [address] [place] Leukocyte esterase Test strip Ql (U) Negative Normal Negative [facility] Comment on above: Order Comment: Speci men Type: URINE SPECIMENOrdering Facility: [facility] Address: [address] [place] [address] Performed By: #### 2 4356-8 ####[facility] LABCLIA [id number] [place] [address] [place] Nitrite Ql (U) Negative Normal Negative [facility] Comment on above: Order Comment: Speci men Type: URINE SPECIMENOrdering Facility: [facility] Address: [address] [place] [address] Performed By: #### 2 4356-8 ####[facility] LABCLIA [id number] [place] [id number] [place] pH (U) 5.0 [pH] Normal 5.0-8.0 [facility] Comment on above: Order Comment: Speci men Type: URINE SPECIMENOrdering Facility: [facility] Address: [address] [place] [address] Performed By: #### 2 4356-8 ####[facility] LABIA [id number] [place] [address] [place] Protein (U) [Mass/Vol] 1+ Abnormal Negative [facility] Comment on above: Order Comment: Speci men Type: URINE SPECIMENOrdering Facility: [facility] Address: [address] [place] [address] Performed By: #### 2 4356-8 ####[facility] [id number] [place] [address] [place] RBC LM.HPF (Urine sed) [#/Area] 3-5 /HPF Abnormal 0-2 /HPF [facility] Comment on above: Order Comment: Speci men Type: URINE SPECIMENOrdering Facility: [facility] Address: [address] [place] [address] Performed By: #### 2 4356-8 ####[facility] [id number] [place] [address] [place] Specific gravity (U) [Rel density] 1.045 High 1.005-1.030 [facility] Comment on above: Order Comment: Speci men Type: URINE SPECIMENOrdering Facility: [facility] Address: [address] [place] [address] Performed By: #### 2 4356-8 ####[facility] [id number] [place] [address] [place] Urobilinogen Ql (U) 1.0 EU/dL Normal 0.2-1.0 EU/dL [facility] Comment on above: Order Comment: Speci men Type: URINE SPECIMENOrdering Facility: [facility] Address: [address] [place] [address] Performed By: #### 2 4356-8 ####[facility] LABCLIA [id number] [place] [address] [place] WBC LM.HPF (Urine sed) [#/Area] 0-5 /HPF Normal 0-5 /HPF [facility] Comment on above: Order Comment: Speci men Type: URINE SPECIMENOrdering Facility: [facility] Address: [address] [place] [address] Performed By: #### 2 4356-8 ####[facility] LABIA [id number] [place] [address] [place] Yeast.budding LM.HPF (Urine sed) [#/Area] None Seen Normal None Seen [facility] Comment on above: Order Comment: Speci men Type: URINE SPECIMENOrdering Facility: [facility] Address: [address] [place] [address] Performed By: #### 2 4356-8 ####[facility] LABIA [id number] [address] [place] CNOVon 02-07-2025 CNOV Office Visit (FAMPWS ) KEITH KEVIN ([id number]) 1940 M Date Time Provider Department 02/07/25 11:20 AM MARISOL RIBEIRO FAMPWS During your visit today, we recorded the following information about you: Pulse Respiration Blood pressure Weight 78/minute 18/minute 122/62 72.1 kg Marisol Ribeiro MD 02/07/2025 12:37 PM Signed Chief Complaint Patient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 [id number] Performed By: #### 2 4323-8 ####[facility] LABCLIA [id number] [facility] [id number] [id number] [place] ALP [Catalytic activity/Vol] 67 U/L Normal 38-113 [facility] Comment on above: Order Comment: Speci men Type: BLOOD SPECIMENOrdering Facility: [facility] Address: [address] [place] [address] Performed By: #### 2 4323-8 ####[facility] LABCLIA [id number] [place] [address] [place] ALT [Catalytic activity/Vol] 12 U/L Normal 10-54 [facility] Comment on above: Order Comment: Speci men Type: BLOOD SPECIMENOrdering Facility: [facility] Address: [address] [place] [address] Performed By: #### 2 4323-8 ####[facility] LABCLIA [id number] [place] [address] [place] Anion gap [Moles/Vol] 15 mmol/L Normal 8-15 [facility] Comment on above: Order Comment: Speci men Type: BLOOD SPECIMENOrdering Facility: [facility] Address: [address] [place] [address] Performed By: #### 2 4323-8 ####[facility] LABCLIA [id number] [place] [address] [place] AST [Catalytic activity/Vol] 16 U/L Normal 14-40 [facility] Comment on above: Order Comment: Speci men Type: BLOOD SPECIMENOrdering Facility: [facility] Address: [address] [place], [place] [address] Performed By: #### 2 4323-8 ####[facility] LABCLIA [id number] [place] [id number] [place] Bilirubin [Mass/Vol] 0.3 mg/dL Normal 0.2-1.3 [facility] Comment on above: Order Comment: Speci men Type: BLOOD SPECIMENOrdering Facility: [facility] Address: [address] [place], [place] [address] Performed By: #### 2 4323-8 ####[facility] LABCLIA [id number] [address] [address] [place] Calcium [Mass/Vol] 9.9 mg/dL Normal 8.5-10.2 [facility] Comment on above: Order Comment: Speci men Type: BLOOD SPECIMENOrdering Facility: [facility] Address: [address] [place] [address] Performed By: #### 2 4323-8 ####[facility] LABCLIA [id number] [place] [address] [place] Chloride [Moles/Vol] 102 mmol/L Normal 98-107 [facility] Comment on above: Order Comment: Speci men Type: BLOOD SPECIMENOrdering Facility: [facility] Address: [address] [place] [address] Performed By: #### 2 4323-8 ####[facility] LABCLIA [id number] [place] [address] [place] CO2 [Moles/Vol] 23 mmol/L Normal 22-30 [facility] Comment on above: Order Comment: Speci men Type: BLOOD SPECIMENOrdering Facility: [facility] Address: [address] [place] [address] Performed By: #### 2 4323-8 ####[facility] LABCLIA [id number] [place] [address] [place] Creatinine [Mass/Vol] 0.78 mg/dL Normal 0.73-1.22 [facility] Comment on above: Order Comment: Speci men Type: BLOOD SPECIMENOrdering Facility: [facility] Address: [address] [place] [address] Performed By: #### 2 4323-8 ####[facility] [facility] LABCLIA [id number] [place] [address] [place] Creatinine and Glomerular filtration rate.predicted panel (S/P/Bld) 88 mL/min/1.73m??? Normal >=60 [facility] Comment on above: Order Comment: Vera monterroso Type: BLOOD SPECIMENOrdering Facility: [facility] Address: [address] [place] [address] Result Comment: Cristy mated Glomerular Filtration Rate (eGFR) is calculated using the 2020 CKD-EPI creatinine equation. This equation utilizes serum creatinine, sex, and age as parameters. The creatinine assay has traceable calibration to isotope dilution-mass spectrometry. Refer to KDIGO guidelines for clinical interpretation. In patients with unstable renal function, e.g. those with acute kidney injury, the eGFR may not accurately reflect actual GFR. Performed By: #### 2 4323-8 ####[facility] LABIA [id number] [place] [address] [place] Glucose [Mass/Vol] 143 mg/dL High 74-99 [facility] Comment on above: Order Comment: Vera monterroso Type: BLOOD SPECIMENOrdering Facility: [facility] Address: [address] [place] [address] Result Comment: The [place] Diabetes Association (ADA) provides guidance for cutoff values for fasting glucose and random glucose. The ADA defines fasting as no caloric intake for at least 8 hours. Fasting plasma glucose results between 100 to 125 mg/dL indicate increased risk for diabetes (prediabetes). Fasting plasma glucose results greater than or equal to 126 mg/dL meet the criteria for diagnosis of diabetes. In the absence of unequivocal hyperglycemia, results should be confirmed by repeat testing. In a patient with classic symptoms of hyperglycemia or hyperglycemic crisis, random plasma glucose results greater than or equal to 200 mg/dL meet the criteria for diagnosis of diabetes. Reference: Standards of Medical Care in Diabetes 2016, [place] Diabetes Association. Diabetes Care. 2016.39(Suppl 1). Performed By: #### 2 4323-8 ####[facility] LABIA [id number] [place] [address] [place] Potassium [Moles/Vol] 4.1 mmol/L Normal 3.7-5.1 [facility] Comment on above: Order Comment: Vera monterroso Type: BLOOD SPECIMENOrdering Facility: [facility] Address: [address] [id number] Performed By: #### 2 4323-8 ####[facility] LABCLIA [id number] [place] [address] [place] Protein [Mass/Vol] 7.4 g/dL Normal 6.3-8.0 [facility] Comment on above: Order Comment: Speci men Type: BLOOD SPECIMENOrdering Facility: [facility] Address: [address] [place] [address] Performed By: #### 2 4323-8 ####[facility] LABCLIA [id number] [place] [address] [place] Sodium [Moles/Vol] 140 mmol/L Normal 136-144 [facility] Comment on above: Order Comment: Speci men Type: BLOOD SPECIMENOrdering Facility: [facility] Address: [address] [place] [address] Performed By: #### 2 4323-8 ####[facility] LABCLIA [id number] [place] [address] [place] Urea nitrogen [Mass/Vol] 11 mg/dL Normal 9-24 [facility] Comment on above: Order Comment: Speci men Type: BLOOD SPECIMENOrdering Facility: [facility] Address: [address] [place] [address] Performed By: #### 2 4323-8 ####[facility] LABCLIA [id number] [place] [address] [place] HbA1c (Bld)on 06-30-2024 Average glucose Estimated from glycated hemoglobin (Bld) [Mass/Vol] 137 mg/dL [facility] Comment on above: eAG: (Estimated aver age glucose) is a calculated value from HgbA1c and is customer operations representative of the average blood glucose level in the last 2-3 month period. HbA1c (Bld) [Mass fraction] 6.4 % High 4.3 - 5.6 % [facility] Comment on above: [place] Diabetes As sociation guidelines indicate that patients with HgbA1c in the range 5.7-6.4% are at increased risk for development of diabetes, and intervention by lifestyle modification may be beneficial. HgbA1c greater or equal to 6.5% is considered diagnostic of diabetes. Interpretation and review of laboratory results Abnormal [facility] Average glucose Estimated from glycated hemoglobin (Bld) [Mass/Vol] 137 mg/dL Normal [facility] Comment on above: Order Comment: Speci men Type: BLOOD SPECIMENOrdering Facility: [facility] Address: [address] [place] [address] Result Comment: eAG: (Estimated average glucose) is a calculated value from HgbA1c and is customer operations representative of the average blood glucose level in the last 2-3 month period. Performed By: #### 5 5454-3 ####[facility] LABCLIA [id number] [place] [address] [place] HbA1c (Bld) [Mass fraction] 6.4 % High 4.3-5.6 [facility] Comment on above: Order Comment: Vera monterroso Type: BLOOD SPECIMENOrdering Facility: [facility] Address: [address] [place] [address] Result Comment: [place] Diabetes Association guidelines indicate that patients with HgbA1c in the range 5.7-6.4% are at increased risk for development of diabetes, and intervention by lifestyle modification may be beneficial. HgbA1c greater or equal to 6.5% is considered diagnostic of diabetes. Performed By: #### 5 5454-3 ####[facility] LABCLIA [id number] [place] [id number] [place] Basic Metabolic Profile (BMP )on 05-23-2024 BUN Normal 7-18 [facility] Comment on above: Result Comment: Canc elled via OM: Order cancelled - Patient discharged Performed By: #### L 100.0100, L500.2500 ####[facility] [address] [place], [address] BUN/CRE Normal 10-20 [facility] Comment on above: Result Comment: Canc elled via OM: Order cancelled - Patient discharged Performed By: #### L 100.0100, L500.2500 ####[facility] [address] [place], [address] CA,Total Normal 8.5-10.1 [facility] Comment on above: Result Comment: Canc elled via OM: Order cancelled - Patient discharged Performed By: #### L 100.0100, L500.2500 ####[facility] [address] [place], [address] CL Normal 98-107 [facility] Comment on above: Result Comment: Canc elled via OM: Order cancelled - Patient discharged Performed By: #### L 100.0100, L500.2500 ####[facility] [address] [place], [address] CO2 Normal 21.0-32.0 [facility] Comment on above: Result Comment: Canc elled via OM: Order cancelled - Patient discharged Performed By: #### L 100.0100, L500.2500 ####[facility] [address] [place], [address] CREAT,SERUM Normal 0.70-1.30 [facility] Comment on above: Result Comment: Canc elled via OM: Order cancelled - Patient discharged Performed By: #### L 100.0100, L500.2500 ####[facility] [address] [place], [address] EST GFR Normal >60 [facility] Comment on above: Result Comment: Canc elled via OM: Order cancelled - Patient discharged Performed By: #### L 100.0100, L500.2500 ####[facility] [address] [place], [address] EST GFR - AA Normal >60 [facility] Comment on above: Result Comment: Canc elled via OM: Order cancelled - Patient discharged Performed By: #### L 100.0100, L500.2500 ####[facility] [address] [place], [address] GAP Normal 5-15 [facility] Comment on above: Result Comment: Canc elled via OM: Order cancelled - Patient discharged Performed By: #### L 100.0100, L500.2500 ####[facility] [address] [place], [address] GLU Normal 74-106 [facility] Comment on above: Result Comment: Canc elled via OM: Order cancelled - Patient discharged Performed By: #### L 100.0100, L500.2500 ####[facility] [address] [place], [address] Potassium Normal 3.5-5.1 [facility] Comment on above: Result Comment: Canc elled via OM: Order cancelled - Patient discharged Performed By: #### L 100.0100, L500.2500 ####[facility] [address] [place], [address] Basic Metabolic Profile (BMP) Normal 136-145 [facility] Comment on above: Result Comment: Canc elled via OM: Order cancelled - Patient discharged Performed By: #### L 100.0100, L500.2500 ####[facility] [address] [place], [address] CBC W/Diff, Automatedon 11-0 Absolute Neut Normal 2.0-7.7 [facility] Comment on above: Result Comment: Canc elled via OM: Order cancelled - Patient discharged Performed By: #### L 100.0100, L500.2500 ####[facility] [address] [place], [address] HCT Normal 40-54 [facility] Comment on above: Result Comment: Canc elled via OM: Order cancelled - Patient discharged Performed By: #### L 100.0100, L500.2500 ####[facility] [address] [place], [address] HGB Normal 13.0-16.5 [facility] Comment on above: Result Comment: Canc elled via OM: Order cancelled - Patient discharged Performed By: #### L 100.0100, L500.2500 ####[facility] [address] [place], [address] MCH Normal 27.0-32.0 [facility] Comment on above: Result Comment: Canc elled via OM: Order cancelled - Patient discharged Performed By: #### L 100.0100, L500.2500 ####[facility] [address] [place], [address] MCHC Normal 32-36 [facility] Comment on above: Result Comment: Canc elled via OM: Order cancelled - Patient discharged Performed By: #### L 100.0100, L500.2500 ####[facility] [address] [place], [address] MCV Normal 80-94 [facility] Comment on above: Result Comment: Canc elled via OM: Order cancelled - Patient discharged Performed By: #### L 100.0100, L500.2500 ####[facility] [address], [address] NEUT% Normal 47-70 [facility] Comment on above: Result Comment: Canc elled via OM: Order cancelled - Patient discharged Performed By: #### L 100.0100, L500.2500 ####[facility] [address] [place], [address] PLT Normal 150-450 [facility] Comment on above: Result Comment: Canc elled via OM: Order cancelled - Patient discharged Performed By: #### L 100.0100, L500.2500 ####[facility] [address] [place], [address] RBC Normal 4.6-6.2 [facility] Comment on above: Result Comment: Canc elled via OM: Order cancelled - Patient discharged Performed By: #### L 100.0100, L500.2500 ####[facility] [address] [place], [address] RDW CV Normal 11.6-14.6 [facility] Comment on above: Result Comment: Canc elled via OM: Order cancelled - Patient discharged Performed By: #### L 100.0100, L500.2500 ####[facility] [address], [address] RDW SD Normal 35.1-43.9 [facility] Comment on above: Result Comment: Canc elled via OM: Order cancelled - Patient discharged Performed By: #### L 100.0100, L500.2500 ####[facility] [address] [place], [address] WBC Normal 4.4-11.0 [facility] Comment on above: Result Comment: Canc elled via OM: Order cancelled - Patient discharged Performed By: #### L 100.0100, L500.2500 ####[facility] [address], [address] Basic Metabolic Profile (BMP )on 05-16-2024 BUN Normal 7-18 [facility] Comment on above: Result Comment: Canc elled via OM: Order cancelled - Patient discharged Performed By: #### L 100.0100, L500.2500 #### [facility] Laboratory [address], [address] BUN/CRE Normal 10-20 [facility] Comment on above: Result Comment: Canc elled via OM: Order cancelled - Patient discharged Performed By: #### L 100.0100, L500.2500 #### [facility] [address] [place], [address] CA,Total Normal 8.5-10.1 [facility] Comment on above: Result Comment: Canc elled via OM: Order cancelled - Patient discharged Performed By: #### L 100.0100, L500.2500 #### [facility] [address] [place], [address] CL Normal 98-107 [facility] Comment on above: Result Comment: Canc elled via OM: Order cancelled - Patient discharged Performed By: #### L 100.0100, L500.2500 #### [facility] [address] [place], [address] CO2 Normal 21.0-32.0 [facility] Comment on above: Result Comment: Canc elled via OM: Order cancelled - Patient discharged Performed By: #### L 100.0100, L500.2500 #### [facility] [address] [place], [address] CREAT,SERUM Normal 0.70-1.30 [facility] Comment on above: Result Comment: Canc elled via OM: Order cancelled - Patient discharged Performed By: #### L 100.0100, L500.2500 #### [facility] [address], [address] EST GFR Normal >60 [facility] Comment on above: Result Comment: Canc elled via OM: Order cancelled - Patient discharged Performed By: #### L 100.0100, L500.2500 #### [facility] [address] [place], [address] EST GFR - AA Normal >60 [facility] Comment on above: Result Comment: Canc elled via OM: Order cancelled - Patient discharged Performed By: #### L 100.0100, L500.2500 #### [facility] [address] [place], [address] GAP Normal 5-15 [facility] Comment on above: Result Comment: Canc elled via OM: Order cancelled - Patient discharged Performed By: #### L 100.0100, L500.2500 #### [facility] [address] [place], [address] GLU Normal 74-106 [facility] Comment on above: Result Comment: Canc elled via OM: Order cancelled - Patient discharged Performed By: #### L 100.0100, L500.2500 #### [facility] [address] [place], [address] Potassium Normal 3.5-5.1 [facility] Comment on above: Result Comment: Canc elled via OM: Order cancelled - Patient discharged Performed By: #### L 100.0100, L500.2500 #### [facility] [address] [place], [address] Basic Metabolic Profile (BMP) Normal 136-145 [facility] Comment on above: Result Comment: Canc elled via OM: Order cancelled - Patient discharged Performed By: #### L 100.0100, L500.2500 #### [facility] [address] [place], [address] CBC W/Diff, Automatedon 11-0 Absolute Neut Normal 2.0-7.7 [facility] Comment on above: Result Comment: Canc elled via OM: Order cancelled - Patient discharged Performed By: #### L 100.0100, L500.2500 #### [facility] [address] [place], [address] HCT Normal 40-54 [facility] Comment on above: Result Comment: Canc elled via OM: Order cancelled - Patient discharged Performed By: #### L 100.0100, L500.2500 #### [facility] [address] [place], [address] HGB Normal 13.0-16.5 [facility] Comment on above: Result Comment: Canc elled via OM: Order cancelled - Patient discharged Performed By: #### L 100.0100, L500.2500 #### [facility] [address] [place], [address] MCH Normal 27.0-32.0 [facility] Comment on above: Result Comment: Canc elled via OM: Order cancelled - Patient discharged Performed By: #### L 100.0100, L500.2500 #### [facility] [address] [place], [address] MCHC Normal 32-36 [facility] Comment on above: Result Comment: Canc elled via OM: Order cancelled - Patient discharged Performed By: #### L 100.0100, L500.2500 #### [facility] [address] [place], [address] MCV Normal 80-94 [facility] Comment on above: Result Comment: Canc elled via OM: Order cancelled - Patient discharged Performed By: #### L 100.0100, L500.2500 #### [facility] [address] [place], [address] NEUT% Normal 47-70 [facility] Comment on above: Result Comment: Canc elled via OM: Order cancelled - Patient discharged Performed By: #### L 100.0100, L500.2500 #### [facility] [address], [address] PLT Normal 150-450 [facility] Comment on above: Result Comment: Canc elled via OM: Order cancelled - Patient discharged Performed By: #### L 100.0100, L500.2500 #### [facility] [address], [address] RBC Normal 4.6-6.2 [facility] Comment on above: Result Comment: Canc elled via OM: Order cancelled - Patient discharged Performed By: #### L 100.0100, L500.2500 #### [facility] [address] [place], [address] RDW CV Normal 11.6-14.6 [facility] Comment on above: Result Comment: Canc elled via OM: Order cancelled - Patient discharged Performed By: #### L 100.0100, L500.2500 #### [facility] [address] [place], [address] RDW SD Normal 35.1-43.9 [facility] Comment on above: Result Comment: Canc elled via OM: Order cancelled - Patient discharged Performed By: #### L 100.0100, L500.2500 #### [facility] [address] [place], [address] WBC Normal 4.4-11.0 [facility] Comment on above: Result Comment: Canc elled via OM: Order cancelled - Patient discharged Performed By: #### L 100.0100, L500.2500 #### [facility] [address] [place], [address] Basic Metabolic Profile (BMP )on 05-09-2024 BUN Normal -18 [facility] Comment on above: Result Comment: Canc elled via OM: Order cancelled - Patient discharged Performed By: #### L 100.0100, L500.2500 ####[facility] [address] [place], [address] BUN/CRE Normal - [facility] Comment on above: Result Comment: Canc elled via OM: Order cancelled - Patient discharged Performed By: #### L 100.0100, L500.2500 ####[facility] [address] [place], [address] CA,Total Normal 8.5-10.1 [facility] Comment on above: Result Comment: Canc elled via OM: Order cancelled - Patient discharged Performed By: #### L 100.0100, L500.2500 ####[facility] [address] [place], [address] CL Normal 98-107 [facility] Comment on above: Result Comment: Canc elled via OM: Order cancelled - Patient discharged Performed By: #### L 100.0100, L500.2500 ####[facility] [address] [place], [address] CO2 Normal 21.0-32.0 [facility] Comment on above: Result Comment: Canc elled via OM: Order cancelled - Patient discharged Performed By: #### L 100.0100, L500.2500 ####[facility] [address] [place], [address] CREAT,SERUM Normal 0.70-1.30 [facility] Comment on above: Result Comment: Canc elled via OM: Order cancelled - Patient discharged Performed By: #### L 100.0100, L500.2500 ####[facility] [address] [place], [address] EST GFR Normal >60 [facility] Comment on above: Result Comment: Canc elled via OM: Order cancelled - Patient discharged Performed By: #### L 100.0100, L500.2500 ####[facility] [address] [place], [address] EST GFR - AA Normal >60 [facility] Comment on above: Result Comment: Canc elled via OM: Order cancelled - Patient discharged Performed By: #### L 100.0100, L500.2500 ####[facility] [address] [place], [address] GAP Normal 5-15 [facility] Comment on above: Result Comment: Canc elled via OM: Order cancelled - Patient discharged Performed By: #### L 100.0100, L500.2500 ####[facility] [address] [place], [address] GLU Normal 74-106 [facility] Comment on above: Result Comment: Canc elled via OM: Order cancelled - Patient discharged Performed By: #### L 100.0100, L500.2500 ####[facility] [address] [place], [address] Potassium Normal 3.5-5.1 [facility] Comment on above: Result Comment: Canc elled via OM: Order cancelled - Patient discharged Performed By: #### L 100.0100, L500.2500 ####[facility] [address] [place], [address] Basic Metabolic Profile (BMP) Normal 136-145 [facility] Comment on above: Result Comment: Canc elled via OM: Order cancelled - Patient discharged Performed By: #### L 100.0100, L500.2500 ####[facility] [address] [place], [address] CBC W/Diff, Automatedon 10-2 Absolute Neut Normal 2.0-7.7 [facility] Comment on above: Result Comment: Canc elled via OM: Order cancelled - Patient discharged Performed By: #### L 100.0100, L500.2500 ####[facility] [address] [place], [address] HCT Normal 40-54 [facility] Comment on above: Result Comment: Canc elled via OM: Order cancelled - Patient discharged Performed By: #### L 100.0100, L500.2500 ####[facility] [address] [place], [address] HGB Normal 13.0-16.5 [facility] Comment on above: Result Comment: Canc elled via OM: Order cancelled - Patient discharged Performed By: #### L 100.0100, L500.2500 ####[facility] [address] [place], [address] MCH Normal 27.0-32.0 [facility] Comment on above: Result Comment: Canc elled via OM: Order cancelled - Patient discharged Performed By: #### L 100.0100, L500.2500 ####[facility] [address] [place], [address] MCHC Normal 32-36 [facility] Comment on above: Result Comment: Canc elled via OM: Order cancelled - Patient discharged Performed By: #### L 100.0100, L500.2500 ####[facility] [address] [place], [address] MCV Normal 80-94 [facility] Comment on above: Result Comment: Canc elled via OM: Order cancelled - Patient discharged Performed By: #### L 100.0100, L500.2500 ####[facility] [address] [place], [address] NEUT% Normal 47-70 [facility] Comment on above: Result Comment: Canc elled via OM: Order cancelled - Patient discharged Performed By: #### L 100.0100, L500.2500 ####[facility] [address], [address] PLT Normal 150-450 [facility] Comment on above: Result Comment: Canc elled via OM: Order cancelled - Patient discharged Performed By: #### L 100.0100, L500.2500 ####[facility] [address], [address] RBC Normal 4.6-6.2 [facility] Comment on above: Result Comment: Canc elled via OM: Order cancelled - Patient discharged Performed By: #### L 100.0100, L500.2500 ####[facility] [address] [place], [address] RDW CV Normal 11.6-14.6 [facility] Comment on above: Result Comment: Canc elled via OM: Order cancelled - Patient discharged Performed By: #### L 100.0100, L500.2500 ####[facility] [address] [place], [address] RDW SD Normal 35.1-43.9 [facility] Comment on above: Result Comment: Canc elled via OM: Order cancelled - Patient discharged Performed By: #### L 100.0100, L500.2500 ####[facility] [address] [place], [address] WBC Normal 4.4-11.0 [facility] Comment on above: Result Comment: Canc elled via OM: Order cancelled - Patient discharged Performed By: #### L 100.0100, L500.2500 ####[facility] [address] [place], [address] Basic Metabolic Profile (BMP )on 05-02-2024 BUN Normal - [facility] Comment on above: Result Comment: Canc elled via OM: Order cancelled - Patient discharged Performed By: #### L 500.2500, L100.0100 #### [facility] [address] [place], [address] BUN/CRE Normal - [facility] Comment on above: Result Comment: Canc elled via OM: Order cancelled - Patient discharged Performed By: #### L 500.2500, L100.0100 #### [facility] [address] [place], [address] CA,Total Normal 8.5-10.1 [facility] Comment on above: Result Comment: Canc elled via OM: Order cancelled - Patient discharged Performed By: #### L 500.2500, L100.0100 #### [facility] [address] [place], [address] CL Normal 98-107 [facility] Comment on above: Result Comment: Canc elled via OM: Order cancelled - Patient discharged Performed By: #### L 500.2500, L100.0100 #### [facility] [address] [place], [address] CO2 Normal 21.0-32.0 [facility] Comment on above: Result Comment: Canc elled via OM: Order cancelled - Patient discharged Performed By: #### L 500.2500, L100.0100 #### [facility] [address] [place], [address] CREAT,SERUM Normal 0.70-1.30 [facility] Comment on above: Result Comment: Canc elled via OM: Order cancelled - Patient discharged Performed By: #### L 500.2500, L100.0100 #### [facility] [address] [place], [address] EST GFR Normal >60 [facility] Comment on above: Result Comment: Canc elled via OM: Order cancelled - Patient discharged Performed By: #### L 500.2500, L100.0100 #### [facility] [address] [place], [address] EST GFR - AA Normal >60 [facility] Comment on above: Result Comment: Canc elled via OM: Order cancelled - Patient discharged Performed By: #### L 500.2500, L100.0100 #### [facility] [address] [place], [address] GAP Normal 5-15 [facility] Comment on above: Result Comment: Canc elled via OM: Order cancelled - Patient discharged Performed By: #### L 500.2500, L100.0100 #### [facility] [address] [place], [address] GLU Normal 74-106 [facility] Comment on above: Result Comment: Canc elled via OM: Order cancelled - Patient discharged Performed By: #### L 500.2500, L100.0100 #### [facility] [address] [place], [address] Potassium Normal 3.5-5.1 [facility] Comment on above: Result Comment: Canc elled via OM: Order cancelled - Patient discharged Performed By: #### L 500.2500, L100.0100 #### [facility] [address] [place], [address] Basic Metabolic Profile (BMP) Normal 136-145 [facility] Comment on above: Result Comment: Canc elled via OM: Order cancelled - Patient discharged Performed By: #### L 500.2500, L100.0100 #### [facility] [address], [address] CBC W/Diff, Automatedon 10- Absolute Neut Normal 2.0-7.7 [facility] Comment on above: Result Comment: Canc elled via OM: Order cancelled - Patient discharged Performed By: #### L 500.2500, L100.0100 #### [facility] [address], [address] HCT Normal 40-54 [facility] Comment on above: Result Comment: Canc elled via OM: Order cancelled - Patient discharged Performed By: #### L 500.2500, L100.0100 #### [facility] [address] [place], [address] HGB Normal 13.0-16.5 [facility] Comment on above: Result Comment: Canc elled via OM: Order cancelled - Patient discharged Performed By: #### L 500.2500, L100.0100 #### [facility] [address] [place], [address] MCH Normal 27.0-32.0 [facility] Comment on above: Result Comment: Canc elled via OM: Order cancelled - Patient discharged Performed By: #### L 500.2500, L100.0100 #### [facility] [address] [place], [address] MCHC Normal 32-36 [facility] Comment on above: Result Comment: Canc elled via OM: Order cancelled - Patient discharged Performed By: #### L 500.2500, L100.0100 #### [facility] [address] [place], [address] MCV Normal 80-94 [facility] Comment on above: Result Comment: Canc elled via OM: Order cancelled - Patient discharged Performed By: #### L 500.2500, L100.0100 #### [facility] [address], [address] NEUT% Normal 47-70 [facility] Comment on above: Result Comment: Canc elled via OM: Order cancelled - Patient discharged Performed By: #### L 500.2500, L100.0100 #### [facility] [address] [place], [address] PLT Normal 150-450 [facility] Comment on above: Result Comment: Canc elled via OM: Order cancelled - Patient discharged Performed By: #### L 500.2500, L100.0100 #### [facility] [address] [place], [address] RBC Normal 4.6-6.2 [facility] Comment on above: Result Comment: Canc elled via OM: Order cancelled - Patient discharged Performed By: #### L 500.2500, L100.0100 #### [facility] [address] [place], [address] RDW CV Normal 11.6-14.6 [facility] Comment on above: Result Comment: Canc elled via OM: Order cancelled - Patient discharged Performed By: #### L 500.2500, L100.0100 #### [facility] [address] [place], [address] RDW SD Normal 35.1-43.9 [facility] Comment on above: Result Comment: Canc elled via OM: Order cancelled - Patient discharged Performed By: #### L 500.2500, L100.0100 #### [facility] [address] [place], [address] WBC Normal 4.4-11.0 [facility] Comment on above: Result Comment: Canc elled via OM: Order cancelled - Patient discharged Performed By: #### L 500.2500, L100.0100 #### [facility] [address], [address] Basic Metabolic Profile (BMP )on 04-25-2024 BUN/CRE 17.0 RATIO Normal -20 [facility] Comment on above: Order Comment: 101.1 Performed By: #### L 500.2500 #### [facility] [address], [address] CA,Total 9.7 mg/dL Normal 8.5-10.1 [facility] Comment on above: Order Comment: 101.1 Performed By: #### L 500.2500 #### [facility] [address] [place], [address] Chloride [Moles/Vol] 106 mmol/L Normal 98-107 [facility] Comment on above: Order Comment: 101.1 Performed By: #### L 500.2500 #### [facility] [address], [address] CO2 [Moles/Vol] 27.0 mmol/L Normal 21.0-32.0 [facility] Comment on above: Order Comment: 101.1 Performed By: #### L 500.2500 #### [facility] [address], [address] Creatinine [Mass/Vol] 0.76 mg/dL Normal 0.70-1.30 [facility] Comment on above: Order Comment: 101.1 Result Comment: The validity of the calculated GFR GFRAA in patients over 70 years has not been determined. Clinical correlation is essential. Performed By: #### L 500.2500 #### [facility] [address], [address] EST GFR - AA 125 mL/min Normal >60 [facility] Comment on above: Order Comment: 101.1 Result Comment: Afri can Vincentian GFR Calc Performed By: #### L 500.2500 #### [facility] [address] [place], [address] GAP 5 Normal 5-15 [facility] Comment on above: Order Comment: 101.1 Performed By: #### L 500.2500 #### [facility] [address], [address] GFR/1.73 sq M.predicted among non-blacks MDRD (S/P/Bld) [Vol rate/Area] 103 mL/min/{1.73_m2} Normal >60 [facility] Comment on above: Order Comment: 101.1 Result Comment: Non- GFR Calc Performed By: #### L 500.2500 #### [facility] [address], [address] Glucose [Mass/Vol] 142 mg/dL High 74-106 [facility] Comment on above: Order Comment: 101.1 Result Comment: Fast ing Glucose result greater than or equal to 126 mg/dL suggests DIABETES MELLITUS per A.D.A. criteria. Performed By: #### L 500.2500 #### [facility] [address], [address] Potassium [Moles/Vol] 3.8 mmol/L Normal 3.5-5.1 [facility] Comment on above: Order Comment: 101.1 Result Comment: Mode rate Hemolysis, Result may be falsely increased. Performed By: #### L 500.2500 #### [facility] [address] [place], [address] Sodium [Moles/Vol] 139 mmol/L Normal 136-145 [facility] Comment on above: Order Comment: 101.1 Performed By: #### L 500.2500 #### [facility] [address] [place], [address] Urea nitrogen [Mass/Vol] 13 mg/dL Normal 7-18 [facility] Comment on above: Order Comment: 101.1 Performed By: #### L 500.2500 #### [facility] [address] [place], [address] BUN Normal 7-18 [facility] Comment on above: Result Comment: Canc elled via OM: Order cancelled - Patient discharged Performed By: #### L 500.2500, L100.0100 #### [facility] [address] [place], [address] BUN/CRE Normal 10-20 [facility] Comment on above: Result Comment: Canc elled via OM: Order cancelled - Patient discharged Performed By: #### L 500.2500, L100.0100 #### [facility] [address] [place], [address] CA,Total Normal 8.5-10.1 [facility] Comment on above: Result Comment: Canc elled via OM: Order cancelled - Patient discharged Performed By: #### L 500.2500, L100.0100 #### [facility] [address] [place], [address] CL Normal 98-107 [facility] Comment on above: Result Comment: Canc elled via OM: Order cancelled - Patient discharged Performed By: #### L 500.2500, L100.0100 #### [facility] [address] [place], [address] CO2 Normal 21.0-32.0 [facility] Comment on above: Result Comment: Canc elled via OM: Order cancelled - Patient discharged Performed By: #### L 500.2500, L100.0100 #### [facility] [address] [place], [address] CREAT,SERUM Normal 0.70-1.30 [facility] Comment on above: Result Comment: Canc elled via OM: Order cancelled - Patient discharged Performed By: #### L 500.2500, L100.0100 #### [facility] [address] [place], [address] EST GFR Normal >60 [facility] Comment on above: Result Comment: Canc elled via OM: Order cancelled - Patient discharged Performed By: #### L 500.2500, L100.0100 #### [facility] [address], [address] EST GFR - AA Normal >60 [facility] Comment on above: Result Comment: Canc elled via OM: Order cancelled - Patient discharged Performed By: #### L 500.2500, L100.0100 #### [facility] [address] [place], [address] GAP Normal 5-15 [facility] Comment on above: Result Comment: Canc elled via OM: Order cancelled - Patient discharged Performed By: #### L 500.2500, L100.0100 #### [facility] [address] [place], [address] GLU Normal 74-106 [facility] Comment on above: Result Comment: Canc elled via OM: Order cancelled - Patient discharged Performed By: #### L 500.2500, L100.0100 #### [facility] [address] [place], [address] Potassium Normal 3.5-5.1 [facility] Comment on above: Result Comment: Canc elled via OM: Order cancelled - Patient discharged Performed By: #### L 500.2500, L100.0100 #### [facility] [address] [place], [address] Basic Metabolic Profile (BMP) Normal 136-145 [facility] Comment on above: Result Comment: Canc elled via OM: Order cancelled - Patient discharged Performed By: #### L 500.2500, L100.0100 #### [facility] [address], [address] CBC W/Diff, Automatedon 10-1 Absolute Neut Normal 2.0-7.7 [facility] Comment on above: Result Comment: Canc elled via OM: Order cancelled - Patient discharged Performed By: #### L 500.2500, L100.0100 #### [facility] [address] [place], [address] HCT Normal 40-54 [facility] Comment on above: Result Comment: Canc elled via OM: Order cancelled - Patient discharged Performed By: #### L 500.2500, L100.0100 #### [facility] [address] [place], [address] HGB Normal 13.0-16.5 [facility] Comment on above: Result Comment: Canc elled via OM: Order cancelled - Patient discharged Performed By: #### L 500.2500, L100.0100 #### [facility] [address], [address] MCH Normal 27.0-32.0 [facility] Comment on above: Result Comment: Canc elled via OM: Order cancelled - Patient discharged Performed By: #### L 500.2500, L100.0100 #### [facility] [address] [place], [address] MCHC Normal 32-36 [facility] Comment on above: Result Comment: Canc elled via OM: Order cancelled - Patient discharged Performed By: #### L 500.2500, L100.0100 #### [facility] [address] [place], [address] MCV Normal 80-94 [facility] Comment on above: Result Comment: Canc elled via OM: Order cancelled - Patient discharged Performed By: #### L 500.2500, L100.0100 #### [facility] [address] [place], [address] NEUT% Normal 47-70 [facility] Comment on above: Result Comment: Canc elled via OM: Order cancelled - Patient discharged Performed By: #### L 500.2500, L100.0100 #### [facility] [address] [place], [address] PLT Normal 150-450 [facility] Comment on above: Result Comment: Canc elled via OM: Order cancelled - Patient discharged Performed By: #### L 500.2500, L100.0100 #### [facility] [address] [place], [address] RBC Normal 4.6-6.2 [facility] Comment on above: Result Comment: Canc elled via OM: Order cancelled - Patient discharged Performed By: #### L 500.2500, L100.0100 #### [facility] [address] [place], [address] RDW CV Normal 11.6-14.6 [facility] Comment on above: Result Comment: Canc elled via OM: Order cancelled - Patient discharged Performed By: #### L 500.2500, L100.0100 #### [facility] [address] [place], [address] RDW SD Normal 35.1-43.9 [facility] Comment on above: Result Comment: Canc elled via OM: Order cancelled - Patient discharged Performed By: #### L 500.2500, L100.0100 #### [facility] [address], [address] WBC Normal 4.4-11.0 [facility] Comment on above: Result Comment: Canc elled via OM: Order cancelled - Patient discharged Performed By: #### L 500.2500, L100.0100 #### [facility] [address] [place], [address] CBC W Auto Differential pane l (Bld)on 02-13-2023 Basophils (Bld) [#/Vol] 0.04 10*3/uL <0.11 k/uL [facility] Basophils/100 WBC (Bld) 0.9 % [facility] Differential cell count method Nom (Bld) Auto [facility] Eosinophils (Bld) [#/Vol] 0.14 10*3/uL <0.46 k/uL [facility] Eosinophils/100 WBC (Bld) 3.3 % [facility] Erythrocyte distribution width (RBC) [Ratio] 12.1 % 11.5 - 15.0 % [facility] Hematocrit (Bld) [Volume fraction] 36.7 % Low 39.0 - 51.0 % [facility] Hemoglobin (Bld) [Mass/Vol] 12.8 g/dL Low 13.0 - 17.0 g/dL [facility] Immature granulocytes (Bld) [#/Vol] <0.10 k/uL [facility] Immature granulocytes/100 WBC (Bld) 0.2 % [facility] Lymphocytes (Bld) [#/Vol] 1.23 10*3/uL 1.00 - 4.00 k/uL [facility] Lymphocytes/100 WBC (Bld) 28.7 % [facility] MCH (RBC) [Entitic mass] 33.6 pg 26.0 - 34.0 pg [facility] MCHC (RBC) [Mass/Vol] 34.9 g/dL 30.5 - 36.0 g/dL [facility] MCV (RBC) [Entitic vol] 96.3 fL 80.0 - 100.0 fL [facility] Monocytes (Bld) [#/Vol] 0.34 10*3/uL <0.87 k/uL [facility] Monocytes/100 WBC (Bld) 7.9 % [facility] Neutrophils (Bld) [#/Vol] 2.52 10*3/uL 1.45 - 7.50 k/uL [facility] Neutrophils/100 WBC (Bld) 59.0 % [facility] Nucleated RBC (Bld) [#/Vol] <0.01 k/uL [facility] Nucleated RBC/100 WBC (Bld) [Ratio] 0.0 /100 WBC [facility] Platelet mean volume (Bld) [Entitic vol] 9.3 fL 9.0 - 12.7 fL [facility] Platelets (Bld) [#/Vol] 226 10*3/uL 150 - 400 k/uL [facility] RBC (Bld) [#/Vol] 3.81 10*6/uL Low 4.20 - 6.0 0 m/uL [facility] WBC (Bld) [#/Vol] 4.28 10*3/uL 3.70 - 11.00 k/uL [facility] No Panel InformationOrdered By: SWATI Foley on 09-28-2022 Prostate Specific Antigen Total < 0.01 ng/mL 0.0-4.0 [facility] Comment on above: This test was perfor med using the TPSA assay method for theBocandy chemistry system. Values obtained with differentassay methods cannot be used interchangably.When changing PSA assays in the course of monitoring apatient, additional sequential testing should be carriedout to confirm baseline values. Vital Signs Date Time Vital Sign Value Performing Clinician Facility 05-21-2025 23:11-0500 SaO2% (BldA) [Mass fraction] 92 % MARISOL RIBEIRO [facility] Comment on above: Order Comment: Specimen Type: ARTERIAL B LOOD SPECIMENOrdering Facility: [facility] Address: [address] [place] [address] Performed By: #### A LL ####[facility]CL[facility] [id number] [place] [address] [place] 04-09-2025 13:36-0400 Body height 165.1 cm Tegan WEAVER Work Phone: [facility] 04-09-2025 13:36-0400 Body mass index (BMI) [Ratio] 25.4 kg/m2 Tegan WEAVER Work Phone: [facility] 04-09-2025 13:36-0400 Body weight 69.39 kg Tegan Podlogar [employer] Work Phone: [facility] 04-09-2025 13:36-0400 Diastolic blood pressure 61 mm[Hg] Tegan Podlogar [employer] Work Phone: [facility] 04-09-2025 13:36-0400 Heart rate 63 /min Tegan Podlogar [employer] Work Phone: [facility] 04-09-2025 13:36-0400 Respiratory rate 16 /min Tegan Podlogar [employer] Work Phone: [facility] 04-09-2025 13:36-0400 Systolic blood pressure 106 mm[Hg] Tegan Podlogar [employer] Work Phone: [facility] 02-07-2025 11:27-0400 Body mass index (BMI) [Ratio] 26.46 kg/m2 Marisol Ribeiro MD Work Phone: [facility] 02-07-2025 11:27-0400 Body weight 72.12 kg Marisol Ribeiro MD Work Phone: [facility] 02-07-2025 11:27-0400 Diastolic blood pressure 62 mm[Hg] Marisol Ribeiro MD Work Phone: [facility] 02-07-2025 11:27-0400 Heart rate 78 /min Marisol Ribeiro MD Work Phone: [facility] 02-07-2025 11:27-0400 Respiratory rate 18 /min Marisol Ribeiro MD Work Phone: [facility] 02-07-2025 11:27-0400 SaO2% (BldA) [Mass fraction] 96 % Marisol Ribeiro MD Work Phone: [facility] 02-07-2025 11:27-0400 Systolic blood pressure 122 mm[Hg] Marisol Ribeiro MD Work Phone: [facility] 07-30-2024 10:53-0500 Body mass index (BMI) [Ratio] 24.86 kg/m2 Marisol Ribeiro MD Work Phone: [facility] 07-30-2024 10:53-0500 Body weight 67.77 kg Marisol Ribeiro MD Work Phone: [facility] 07-30-2024 10:53-0500 Diastolic blood pressure 66 mm[Hg] Marisol Ribeiro MD Work Phone: [facility] 07-30-2024 10:53-0500 Heart rate 87 /min Marisol Ribeiro MD Work Phone: [facility] 07-30-2024 10:53-0500 Respiratory rate 18 /min Marisol Ribeiro MD Work Phone: [facility] 07-30-2024 10:53-0500 SaO2% (BldA) [Mass fraction] 99 % Marisol Ribeiro MD Work Phone: [facility] 07-30-2024 10:53-0500 Systolic blood pressure 130 mm[Hg] Marisol Ribeiro MD Work Phone: [facility] 06-30-2024 12:24-0500 Body mass index (BMI) [Ratio] 24.4 kg/m2 Tegan Podlogar TACKING STITCH REMOVER.CONE PICKER Work Phone: [facility] 06-30-2024 12:24-0500 Body temperature 97.39 [degF] Tegan Podlogar TACKING STITCH REMOVER.CONE PICKER Work Phone: [facility] 06-30-2024 12:24-0500 Body weight 66.5 kg Tegan Podlogar TACKING STITCH REMOVER.CONE PICKER Work Phone: [facility] 06-30-2024 12:24-0500 Diastolic blood pressure 72 mm[Hg] Tegan Podlogar TACKING STITCH REMOVER.CONE PICKER Work Phone: [facility] 06-30-2024 12:24-0500 Heart rate 75 /min Tegan Podlogar TACKING STITCH REMOVER.CONE PICKER Work Phone: [facility] 06-30-2024 12:24-0500 Respiratory rate 18 /min Tegan Podlogar TACKING STITCH REMOVER.CONE PICKER Work Phone: [facility] 06-30-2024 12:24-0500 SaO2% (BldA) [Mass fraction] 97 % Tegan Podlogar TACKING STITCH REMOVER.CONE PICKER Work Phone: [facility] 06-30-2024 12:24-0500 Systolic blood pressure 120 mm[Hg] Tegan Podlogar TACKING STITCH REMOVER.CONE PICKER Work Phone: [facility] 11-14-2023 15:26-0400 Body mass index (BMI) [Ratio] 26.66 kg/m2 Tegan Podlogar TACKING STITCH REMOVER.CONE PICKER Work Phone: [facility] 11-14-2023 15:26-0400 Body weight 72.67 kg Tegan Podlogar TACKING STITCH REMOVER.CONE PICKER Work Phone: [facility] 11-14-2023 15:26-0400 Diastolic blood pressure 74 mm[Hg] Tegan Podlogar TACKING STITCH REMOVER.CONE PICKER Work Phone: [facility] 11-14-2023 15:26-0400 Heart rate 82 /min Tegan Podlogar TACKING STITCH REMOVER.CONE PICKER Work Phone: [facility] 11-14-2023 15:26-0400 Respiratory rate 18 /min Tegan Podlogar TACKING STITCH REMOVER.CONE PICKER Work Phone: [facility] 11-14-2023 15:26-0400 SaO2% (BldA) [Mass fraction] 96 % Tegan Podlogar TACKING STITCH REMOVER.CONE PICKER Work Phone: [facility] 11-14-2023 15:26-0400 Systolic blood pressure 122 mm[Hg] Tegan Podlogar TACKING STITCH REMOVER.CONE PICKER Work Phone: [facility] 05-16-2023 15:02-0400 Body weight 70.22 kg Tegan Podlogar TACKING STITCH REMOVER.CONE PICKER Work Phone: [facility] 05-16-2023 15:02-0400 Diastolic blood pressure 66 mm[Hg] Tegan Podlogar TACKING STITCH REMOVER.CONE PICKER Work Phone: [facility] 05-16-2023 15:02-0400 Heart rate 79 /min Tegan Podlogar TACKING STITCH REMOVER.CONE PICKER Work Phone: [facility] 05-16-2023 15:02-0400 Respiratory rate 18 /min Tegan Podlogar TACKING STITCH REMOVER.CONE PICKER Work Phone: [facility] 05-16-2023 15:02-0400 SaO2% (BldA) [Mass fraction] 98 % Tegan Podlogar TACKING STITCH REMOVER.CONE PICKER Work Phone: [facility] 05-16-2023 15:02-0400 Systolic blood pressure 112 mm[Hg] Tegan Podlogar TACKING STITCH REMOVER.CONE PICKER Work Phone: [facility] 02-13-2023 13:14-0400 Body height 165.1 cm Tegan Podlogar TACKING STITCH REMOVER.CONE PICKER Work Phone: [facility] 02-13-2023 13:14-0400 Body weight 72.48 kg Tegan Podlogar TACKING STITCH REMOVER.CONE PICKER Work Phone: [facility] 02-13-2023 13:14-0400 Diastolic blood pressure 64 mm[Hg] Tegan Podlogar TACKING STITCH REMOVER.CONE PICKER Work Phone: [facility] 02-13-2023 13:14-0400 Heart rate 60 /min Tegan Podlogar TACKING STITCH REMOVER.CONE PICKER Work Phone: [facility] 02-13-2023 13:14-0400 Respiratory rate 16 /min Tegan Podlogar TACKING STITCH REMOVER.CONE PICKER Work Phone: [facility] 02-13-2023 13:14-0400 Systolic blood pressure 110 mm[Hg] Tegan Podlogar TACKING STITCH REMOVER.CONE PICKER Work Phone: [facility] 01-30-2023 13:21-0400 Body mass index (BMI) [Ratio] 25.2 kg/m2 Dr. Jude Ribeiro Work Phone: [facility] 01-30-2023 13:21-0400 Body weight 70.[address] Jude Ribeiro Work Phone: [facility] 01-30-2023 13:09-0400 Body height 167.[address] Jude Ribeiro Work Phone: [facility] 01-30-2023 13:09-0400 Body temperature 97.8 [degF] Dr. Jude Ribeiro Work Phone: [facility] 01-30-2023 13:09-0400 Diastolic blood pressure 76 mm[Hg] Dr. Jude Ribeiro Work Phone: [facility] 01-30-2023 13:09-0400 Heart rate 80 /min Dr. Jude Ribeiro Work Phone: [facility] 01-30-2023 13:09-0400 Respiratory rate 14 /min Dr. Jude Ribeiro Work Phone: [facility] 01-30-2023 13:09-0400 SaO2% (BldA) [Mass fraction] 98 % Dr. Jude Ribeiro Work Phone: [facility] 01-30-2023 13:09-0400 Systolic blood pressure 125 mm[Hg] Dr. Jude Ribeiro Work Phone: [facility] 11-13-2022 14:00-0400 Body weight 72.39 kg Tegan Podlogar TACKING STITCH REMOVER.CONE PICKER Work Phone: [facility] 11-13-2022 14:00-0400 Diastolic blood pressure 68 mm[Hg] Tegan Podlogar TACKING STITCH REMOVER.CONE PICKER Work Phone: [facility] 11-13-2022 14:00-0400 Heart rate 68 /min Tegan Podlogar TACKING STITCH REMOVER.CONE PICKER Work Phone: [facility] 11-13-2022 14:00-0400 Respiratory rate 18 /min Tegan Podlogar TACKING STITCH REMOVER.CONE PICKER Work Phone: [facility] 11-13-2022 14:00-0400 SaO2% (BldA) [Mass fraction] 99 % Tegan Podlogar TACKING STITCH REMOVER.CONE PICKER Work Phone: [facility] 11-13-2022 14:00-0400 Systolic blood pressure 122 mm[Hg] Tegan Podlogar TACKING STITCH REMOVER.CONE PICKER Work Phone: [facility] 10-30-2022 14:37-0400 Body mass index (BMI) [Ratio] 26.4 kg/m2 Dr. Jude Ribeiro Work Phone: [facility] 10-30-2022 14:37-0400 Body weight 72.[address] Jude Ribeiro Work Phone: [facility] 10-30-2022 14:37-0400 Diastolic blood pressure 72 mm[Hg] Dr. Jude Ribeiro Work Phone: [facility] 10-30-2022 14:37-0400 Heart rate 78 /min Dr. Jude Ribeiro Work Phone: [facility] 10-30-2022 14:37-0400 Respiratory rate 18 /min Dr. Jude Ribeiro Work Phone: [facility] 10-30-2022 14:37-0400 SaO2% (BldA) [Mass fraction] 99 % Dr. Jude Ribeiro Work Phone: [facility] 10-30-2022 14:37-0400 Systolic blood pressure 130 mm[Hg] Dr. Jude Ribeiro Work Phone: [facility] 09-05-2022 13:59-0500 Body weight 74.75 kg Tegan Podlogar TACKING STITCH REMOVER.CONE PICKER Work Phone: [facility] 09-05-2022 13:59-0500 Diastolic blood pressure 72 mm[Hg] Tegan Podlogar TACKING STITCH REMOVER.CONE PICKER Work Phone: [facility] 09-05-2022 13:59-0500 Heart rate 80 /min Tegan Podlogar TACKING STITCH REMOVER.CONE PICKER Work Phone: [facility] 09-05-2022 13:59-0500 Respiratory rate 16 /min Tegan Podlogar TACKING STITCH REMOVER.CONE PICKER Work Phone: [facility] 09-05-2022 13:59-0500 SaO2% (BldA) [Mass fraction] 100 % Tegan Herreralogangela TACKING STITCH REMOVER.CONE PICKER Work Phone: [facility] 09-05-2022 13:59-0500 Systolic blood pressure 120 mm[Hg] Tegan Wing TACKING STITCH REMOVER.CONE PICKER Work Phone: [facility] 09-02-2022 14:35-0500 Body temperature 97.8 [degF] Dr. Jude Ribeiro Work Phone: [facility] 09-02-2022 14:35-0500 Diastolic blood pressure 78 mm[Hg] Dr. Jude Ribeiro Work Phone: [facility] 09-02-2022 14:35-0500 Heart rate 78 /min Dr. Jude Ribeiro Work Phone: [facility] 09-02-2022 14:35-0500 Respiratory rate 16 /min Dr. Jude Ribeiro Work Phone: [facility] 09-02-2022 14:35-0500 SaO2% (BldA) [Mass fraction] 99 % Dr. Jude Ribeiro Work Phone: [facility] 09-02-2022 14:35-0500 Systolic blood pressure 126 mm[Hg] Dr. Jude Ribeiro Work Phone: [facility] 09-02-2022 11:41-0500 Body height 165.[address] Jude Ribeiro Work Phone: [facility] 09-02-2022 11:41-0500 Body mass index (BMI) [Ratio] 29.1 kg/m2 Dr. Jude Ribeiro Work Phone: [facility] 09-02-2022 11:41-0500 Body weight 79.[address] Jude Ribeiro Work Phone: [facility] 08-22-2022 12:56-0500 Body weight 73.85 kg Tegan Podlogar TACKING STITCH REMOVER.CONE PICKER Work Phone: [facility] 08-22-2022 12:56-0500 Diastolic blood pressure 78 mm[Hg] Tegan Podlogar TACKING STITCH REMOVER.CONE PICKER Work Phone: [facility] 08-22-2022 12:56-0500 Heart rate 86 /min Tegan Podlogar TACKING STITCH REMOVER.CONE PICKER Work Phone: [facility] 08-22-2022 12:56-0500 Respiratory rate 18 /min Tegan Podlogar TACKING STITCH REMOVER.CONE PICKER Work Phone: [facility] 08-22-2022 12:56-0500 SaO2% (BldA) [Mass fraction] 98 % Tegan Podlogar TACKING STITCH REMOVER.CONE PICKER Work Phone: [facility] 08-22-2022 12:56-0500 Systolic blood pressure 132 mm[Hg] Tegan Podlogar TACKING STITCH REMOVER.CONE PICKER Work Phone: [facility] 05-11-2022 10:39-0400 Body mass index (BMI) [Ratio] 27.6 kg/m2 Dr. Jude Ribeiro Work Phone: [facility] 05-11-2022 10:39-0400 Body weight 75.[address] Jude Ribeiro Work Phone: [facility] 05-11-2022 10:39-0400 Diastolic blood pressure 85 mm[Hg] Dr. Jude Ribeiro Work Phone: [facility] 05-11-2022 10:39-0400 Heart rate 82 /min Dr. Jude Ribeiro Work Phone: [facility] 05-11-2022 10:39-0400 Respiratory rate 16 /min Dr. Jude Ribeiro Work Phone: [facility] 05-11-2022 10:39-0400 SaO2% (BldA) [Mass fraction] 99 % Dr. Jude Ribeiro Work Phone: [phone] [place] [address] 05-11-2022 10:39-0400 Systolic blood pressure 131 mm[Hg] Dr. Jude Ribeiro Work Phone: [facility] 04-21-2022 13:06-0400 Body weight 75.03 kg Tegan Podlogar TACKING STITCH REMOVER.CONE PICKER Work Phone: [facility] 04-21-2022 13:06-0400 Diastolic blood pressure 80 mm[Hg] Tegan Podlogar TACKING STITCH REMOVER.CONE PICKER Work Phone: [facility] 04-21-2022 13:06-0400 Heart rate 80 /min Tegan Podlogar TACKING STITCH REMOVER.CONE PICKER Work Phone: [facility] 04-21-2022 13:06-0400 Respiratory rate 16 /min Tegan Podlogar TACKING STITCH REMOVER.CONE PICKER Work Phone: [facility] 04-21-2022 13:06-0400 SaO2% (BldA) [Mass fraction] 97 % Tegan Podlogar TACKING STITCH REMOVER.CONE PICKER Work Phone: [facility] 04-21-2022 13:06-0400 Systolic blood pressure 128 mm[Hg] Tegan Podlogar TACKING STITCH REMOVER.CONE PICKER Work Phone: [facility] 10-18-2021 13:33-0400 Body weight 75.12 kg Marisol Ribeiro MD Work Phone: [facility] 10-18-2021 13:33-0400 Diastolic blood pressure 64 mm[Hg] Marisol Ribeiro MD Work Phone: [facility] 10-18-2021 13:33-0400 Heart rate 63 /min Marisol Ribeiro MD Work Phone: [facility] 10-18-2021 13:33-0400 Respiratory rate 16 /min Marisol Ribeiro MD Work Phone: [facility] 10-18-2021 13:33-0400 SaO2% (BldA) [Mass fraction] 97 % Marisol Ribeiro MD Work Phone: [facility] 10-18-2021 13:33-0400 Systolic blood pressure 104 mm[Hg] Marisol Ribeiro MD Work Phone: [facility] Encounters Encounter Date Encounter Type Care Provider Facility Start: 05-24-2025 Evaluation and manag ement of inpatient MARILY LEONE Facility:[facility] Start: 05-21-2025 End: 05-24-2025 ambulatory MARISOL RIBEIRO Facility:[facility] Start: 05-20-2025 End: 05-20-2025 ambulatory RUTHY ALVARADOT Facility:[facility] Start: 05-19-2025 End: 05-19-2025 Emergency department patient visit MARISOL RIBEIRO Facility:[facility] Start: 04-15-2025 End: 04-15-2025 ambulatory Tegan Podlogar CHICLE GRINDER FEEDER-C Work Phone: -[facility] Start: 04-15-2025 End: 04-15-[address] Alcon Grajeda MD -[facility] Work Phone: Start: 04-09-2025 End: 04-09-[address] Alcon Grajeda MD -[facility] Work Phone: Start: 04-09-2025 End: 04-09-2025 ambulatory Tegan Podlogar CHICLE GRINDER FEEDER-C Work Phone: [facility] Start: 02-24-2025 End: 02-24-2025 ambulatory Tegan Podlogar CHICLE GRINDER FEEDER-C Work Phone: [facility] Start: 02-24-2025 End: 02-24-2025 Patient encounter procedure Jamee Lamar -[facility] Work Phone: Start: 02-14-2025 End: 02-14-2025 ambulatory MARISOL RIBEIRO Facility:[facility] Start: 02-07-2025 End: 02-07-2025 Patient encounter procedure Marisol Ribeiro MD Work Phone: [facility] Comment on above: Controlled type 2 di abetes mellitus without complication, without long-term current use of insulin (HCC) (Primary Dx); Frequency of urination and polyuria; Onychomycosis; Primary hypertension; ASHD (arteriosclerotic heart disease); Sick sinus syndrome (HCC); Pacemaker; Prostate cancer (HCC); Diarrhea, unspecified type; Chronic bilateral low back pain with bilateral sciatica Start: 02-07-2025 End: 02-07-2025 ambulatory MARISOL RIBEIRO Facility:[facility] Start: 02-04-2025 End: 02-04-2025 Telephone encounter Marisol Ribeiro MD Work Phone: [facility] Comment on above: Patient Call Start: 01-14-2025 End: 01-14-2025 ambulatory Tegan Wing CHICLE GRINDER FEEDER-C Work Phone: [facility] Start: 01-14-2025 End: 01-14-[address] Alcon Grajeda MD [facility] Work Phone: Start: 10-16-2024 End: 10-16-2024 ambulatory Alcon Grajeda Facility:[facility] Start: 10-16-2024 End: 10-16-[address] Alcon Grajeda MD [facility] Work Phone: Start: 09-24-2024 End: 09-24-2024 ambulatory Tegan Wing CHICLE GRINDER FEEDER Facility:[facility] Start: 08-26-2024 End: 08-26-2024 Refill Marisol Ribeiro MD Work Phone: [facility] Comment on above: Refill Request Start: 08-01-2024 End: 08-04-2024 Telephone encounter Tegan Wing APRN.CNP Work Phone: [facility] Comment on above: Results Start: 07-30-2024 End: 07-30-2024 ambulatory MARISOL RIBEIRO Facility:[facility] Start: 07-30-2024 End: 07-30-2024 Patient encounter procedure Marisol Ribeiro MD Work Phone: [facility] Comment on above: Chronic bilateral lo w back pain with bilateral sciatica (Primary Dx); Primary hypertension; Anemia, unspecified type Start: 07-17-2024 End: 07-17-2024 ambulatory Tegan Wing CHICLE GRINDER FEEDER Facility:[facility] Start: 07-01-2024 End: 07-01-2024 Telephone encounter Tegan Wing APRN.CONE PICKER Work Phone: [facility] Comment on above: Results; Orders Start: 06-30-2024 End: 06-30-2024 Telephone encounter Tegan Wing APRN.CONE PICKER Work Phone: [facility] Comment on above: Patient Update; Romana ent Question Start: 06-30-2024 End: 06-30-2024 ambulatory MARISOL RIBEIRO Facility:[facility] Start: 06-30-2024 End: 06-30-2024 Patient encounter procedure Tegan Wing APRN.CONE PICKER Work Phone: [facility] Comment on above: Hospital discharge f ollow-up (Primary Dx); Controlled type 2 diabetes mellitus without complication, without long-term current use of insulin (HCC); Encounter for immunization; Candidal intertrigo; Weight loss Start: 06-30-2024 End: 06-30-2024 ambulatory MARISOL RIBEIRO Facility:[facility] Start: 04-25-2024 End: 04-25-2024 ambulatory Tegan Wing CHICLE GRINDER FEEDER Facility:[facility] Start: 11-16-2023 Telephone encounter Tegan read APRN.CONE PICKER Work Phone: [facility] Comment on above: Results Start: 11-14-2023 End: 11-14-2023 Patient encounter procedure Tegan Herreralogangela THURSTON.CONE PICKER [facility] Comment on above: Controlled type 2 di abetes mellitus without complication, without long-term current use of insulin (HCC) (Primary Dx); Sick sinus syndrome (HCC); Prostate cancer (HCC); ASHD (arteriosclerotic heart disease); Pacemaker; Statin declined; Mixed hyperlipidemia; Depression screening Start: 10-24-2023 Refill Marisol Ribeiro MD Work Phone: [facility] Comment on above: Refill Request Start: 10-16-2023 ambulatory Carol Marusa [facility] Comment on above: Population Health Na vigation Outreach ([employer] care gaps) Start: 05-17-2023 Telephone encounter Tegan read APRN.CONE PICKER Work Phone: [facility] Comment on above: Results Start: 05-16-2023 End: 05-16-2023 Patient encounter procedure Tegan Wing APRN.CONE PICKER Work Phone: [facility] Comment on above: Controlled type 2 di abetes mellitus without complication, without long-term current use of insulin (HCC) (Primary Dx); Encounter for immunization; ASHD (arteriosclerotic heart disease); Prostate cancer (HCC); Pacemaker; Sick sinus syndrome (HCC); Fall, initial encounter Start: 02-14-2023 Telephone encounter Jude Ribeiro MD Work Phone: [facility] Comment on above: Results Start: 02-13-2023 End: 02-13-2023 Patient encounter procedure Tegan Wing APRN.CONE PICKER Work Phone: [facility] Comment on above: Controlled type 2 di abetes mellitus without complication, without long-term current use of insulin (HCC) (Primary Dx); Prostate cancer (HCC); Mixed hyperlipidemia; ASHD (arteriosclerotic heart disease); Sick sinus syndrome (HCC); Pacemaker Start: 01-30-2023 End: 01-30-2023 Emergency department patient visit Dr. Jude Ribeiro Work Phone: [facility] Work Phone: Start: 01-10-2023 End: 01-10-[address] Jude Ribeiro Work Phone: [facility] Work Phone: Start: 12-14-2022 Refill Marisol Ribeiro MD Work Phone: [facility] Comment on above: Refill Request Start: 11-15-2022 Telephone encounter Tegan read APRN.CONE PICKER Work Phone: [facility] Comment on above: Results Start: 11-13-2022 End: 11-13-2022 Patient encounter procedure Tegan Wing APRN.CONE PICKER Work Phone: [facility] Comment on above: Controlled type 2 di abetes mellitus without complication, without long-term current use of insulin (HCC) (Primary Dx); Mixed hyperlipidemia; SSS (sick sinus syndrome) ([facility]); ASHD (arteriosclerotic heart disease); Pacemaker Start: 11-08-2022 Refill Marisol Ribeiro MD Work Phone: [facility] Comment on above: Refill Request Start: 10-30-2022 End: 10-30-[address] Jude Ribeiro Work Phone: [facility] Work Phone: Start: 09-28-2022 End: 09-28-[address] Jude Ribeiro Work Phone: [facility] Work Phone: Start: 09-28-2022 End: 09-28-[address] Jude Ribeiro Work Phone: [facility]Laboratory Start: 09-27-2022 End: 09-27-[address] Jude Ribeiro Work Phone: [facility] Start: 09-26-2022 Telephone encounter Jude Ribeiro MD Work Phone: [facility] Comment on above: Patient Update Start: 09-05-2022 End: 09-05-2022 Patient encounter procedure Tegan Wing APRN.CONE PICKER Work Phone: [facility] Comment on above: Left hip pain (Prima ry Dx) Start: 09-02-2022 End: 09-02-2022 Emergency department patient visit Dr. Jude Ribeiro Work Phone: [facility]Emergency Department Start: 08-23-2022 Refill Tegan Wing APRN.CONE PICKER Work Phone: [facility] Start: 08-22-2022 End: 08-22-2022 Patient encounter procedure Tegan Wing APRN.CONE PICKER Work Phone: [facility] Comment on above: Controlled type 2 di abetes mellitus without complication, without long-term current use of insulin (HCC) (Primary Dx); ASHD (arteriosclerotic heart disease); Pacemaker; Prostate cancer (HCC) Start: 07-28-2022 Telephone encounter Tegan read APRN.CONE PICKER Work Phone: [facility] Comment on above: Results; Orders Start: 06-22-2022 End: 06-22-[address] Jude Ribeiro Work Phone: [facility] Start: 05-22-2022 Non-patient / Non-visit Dr. Denita Ribeiro Work Phone: [facility] Start: 05-22-2022 End: 05-22-[address] Jude Ribeiro Work Phone: [facility] Start: 05-11-2022 End: 05-11-[address] Jude Ribeiro Work Phone: [facility] Start: 04-21-2022 End: 04-21-2022 Patient encounter procedure Tegan Wing APRN.CONE PICKER Work Phone: [facility] Comment on above: Controlled type 2 di abetes mellitus without complication, without long-term current use of insulin (HCC) (Primary Dx); Itchy skin; Encounter for immunization; Mixed hyperlipidemia; ASHD (arteriosclerotic heart disease); Pacemaker; Prostate cancer (HCC) Start: 10-18-2021 End: 10-18-2021 Patient encounter procedure Marisol Ribeiro MD Work Phone: [facility] Comment on above: Controlled type 2 di abetes mellitus without complication, without long-term current use of insulin (HCC) (Primary Dx); Prostate cancer (HCC); ASHD (arteriosclerotic heart disease); SSS (sick sinus syndrome) (HCC); Pacemaker; Primary hypertension; Mixed hyperlipidemia Start: 05-15-2012 End: 04-10-2017 Patient encounter procedure Tegan Podlogangela TACKING STITCH REMOVER.ARETHA Work Phone: [facility] Procedures Date Procedure Procedure Detail Performing Clinician Start: 06-30-2024 [facility] COVI D-19 VACCINE AGE 12+ YR (COMIRNATY) Tegan Podlogar TACKING STITCH REMOVER.ARETHA Work Phone: Start: 11-14-2023 Adult depression scr eening assessment Tegan Podlogar TACKING STITCH REMOVER.ARETHA Work Phone: Start: 05-16-2023 INFLUENZA VACCINE, P RSV FREE, AGE 65+ YR, HIGH DOSE, QUADRIVALENT (FLUZONE HIGH-DOSE) Tegan Podlogar TACKING STITCH REMOVER.ARETHA Work Phone: Start: 01-30-2023 Plain x-ray of hand Dr. Jude Ribeiro Work Phone: Start: 09-02-2022 Plain x-ray of pelvi s and lower extremity Dr. Jude Ribeiro Work Phone: Start: 05-22-2022 Cardiovascular stres s test using pharmacologic stress agent Dr. Jude Ribeiro Work Phone: Start: 04-21-2022 INFLUENZA SEASONAL QUADRIVALENT HIGH DOSE AGE 65+ Tegan Podlogar TACKING STITCH REMOVER.ARETHA Work Phone: Plan of Treatment Date Care Activity Detail Author Start: 03-13-2028 Urine microalbumin profile [facility] Start: 02-07-2026 Diabetic foot examination Diabetic Foot Exam [facility] Start: 02-07-2026 RSV Vaccine (1 - 1-d ose 75+ series) RSV Vaccine (1 - 1-dose 75+ series) [facility] Comment on above: Postponed from 10/18 (Declined at this time) Start: 02-07-2026 Shingrix Vaccine (1 of 2) Shingrix Vaccine (1 of 2) [facility] Comment on above: Postponed from 10/18 (Declined at this time) Start: 12-04-2025 Glaucoma screening Dilated Retinal E xam [facility] Start: 06-30-2025 Hepatitis B screening Urine Al bumin:Creatinine Ratio [facility] Start: 03-21-2025 End: 06-20-2025 Hepatic function 2000 panel - Serum or Plasma HEPATIC FUNCTION PNL Lab Routine Onychomycosis Expected: 03/21/2025, Expires: 06/20/2025 [facility] Comment on above: Expected: 03/21/2025 , Expires: 06/20/2025 Start: 03-16-2025 Influenza vaccination Influenza Vacc ine (#1) [facility] Start: 02-07-2025 End: 05-09-2025 Bacteria identified in Urine by Culture BACTERIAL CULTURE, URINE Microbiology Routine Frequency of urination and polyuria Expected: 02/07/2025, Expires: 05/09/2025 [facility] Comment on above: Expected: 02/07/2025 , Expires: 05/09/2025 Start: 02-07-2025 End: 05-09-2025 CBC W Auto Differential panel - Blood COMPLETE BLOOD COUNT AND DIFFERENTIAL Lab Routine Controlled type 2 diabetes mellitus without complication, without long-term current use of insulin (HCC) Expected: 02/07/2025, Expires: 05/09/2025 [facility] Work Phone: Comment on above: Expected: 02/07/2025 , Expires: 05/09/2025 Start: 02-07-2025 End: 05-09-2025 Comprehensive metabolic 2000 panel - Serum or Plasma COMPREHENSIVE METABOLIC PANEL Lab Routine Controlled type 2 diabetes mellitus without complication, without long-term current use of insulin (HCC) Expected: 02/07/2025, Expires: 05/09/2025 [facility] Comment on above: Expected: 02/07/2025 , Expires: 05/09/2025 Start: 02-07-2025 End: 05-09-2025 Hemoglobin A1c in Blood HEMOGLOBIN A1C Lab Routine Controlled type 2 diabetes mellitus without complication, without long-term current use of insulin (HCC) Expected: 02/07/2025, Expires: 05/09/2025 [facility] Comment on above: Expected: 02/07/2025 , Expires: 05/09/2025 Start: 02-07-2025 End: 05-09-2025 LIPID PANEL, NONFASTING LIPID PANEL, NONFASTING Lab Routine Controlled type 2 diabetes mellitus without complication, without long-term current use of insulin (HCC) Expected: 02/07/2025, Expires: 05/09/2025 [facility] Comment on above: Expected: 02/07/2025 , Expires: 05/09/2025 Start: 02-07-2025 End: 05-09-2025 PSA/PROSTATE SPECIFIC ANTIGEN SCREENING PSA/PROSTATE SPECIFIC ANTIGEN SCREENING Lab Routine Prostate cancer (HCC) Expected: 02/07/2025, Expires: 05/09/2025 [facility] Comment on above: Expected: 02/07/2025 , Expires: 05/09/2025 Start: 02-07-2025 End: 05-09-2025 Urinalysis complete panel - Urine URINALYSIS, WITH MICROSCOPIC Lab Routine Frequency of urination and polyuria Expected: 02/07/2025, Expires: 05/09/2025 [facility] Comment on above: Expected: 02/07/2025 , Expires: 05/09/2025 Start: 02-07-2025 End: 02-07-2025 Patient encounter procedure 02/07/2025 11:20 AM EDT Office Visit [facility] [address] [place], [place] [address] Marisol Ribeiro MD [address] [place], [place] [id number] Routine follow up- rescheduled from 09/20/24, 11/01 son called and r/s [facility] Comment on above: Routine follow up- r escheduled from 09/20/24, 11/01 son called and r/s Start: 12-29-2024 Covid-19 Vaccine () Covid-19 Vaccine () [facility] Start: 12-29-2024 Hemoglobin A1c measurement HbA1C [facility] Start: 11-14-2024 Hepatitis B surface antibody level LDL Cholesterol [facility] Start: 11-13-2024 Anxiety Screening Anxiety Screening [facility] Start: 11-13-2024 Depression Screening Depression Scre ening [facility] Start: 11-13-2024 Diabetic foot examination Diabetic Foot Exam [facility] Start: 08-30-2024 End: 08-30-2024 Patient encounter procedure 08/30/2024 10:40 AM EST Office Visit [facility] [address] [place] [address] Marisol Ribeiro MD [address] [place] [address] 4 week follow up [facility] Comment on above: 4 week follow up Start: 08-12-2024 End: 11-11-2024 Iron and Iron binding capacity panel - Serum or Plasma IRON AND TIBC Lab Routine Anemia, unspecified type Expected: 08/12/2024, Expires: 11/11/2024 [facility] Comment on above: Expected: 08/12/2024 , Expires: 11/11/2024 Start: 07-30-2024 End: 07-30-2024 Patient encounter procedure [facility] Comment on above: 1 month follow up 1 month follow up (l abs per Tegan Cox to complete) Start: 07-16-2024 Advance Directive Discussion Advance Directive Discussion [facility] Start: 07-16-2024 Medicare Advantage Annual Wellness Visit Medicare Advantage Annual Wellness Visit [facility] Start: 07-01-2024 End: 09-30-2024 Cobalamin (Vitamin B12) [Mass/volume] in Serum or Plasma VITAMIN B12 Lab Routine Anemia, unspecified type Expected: 07/01/2024, Expires: 09/30/2024 [facility] Work Phone: Comment on above: Expected: 07/01/2024 , Expires: 09/30/2024 Start: 07-01-2024 End: 09-30-2024 Ferritin [Mass/volume] in Serum or Plasma FERRITIN Lab Routine Anemia, unspecified type Expected: 07/01/2024, Expires: 09/30/2024 [facility] Comment on above: Expected: 07/01/2024 , Expires: 09/30/2024 Start: 07-01-2024 End: 09-30-2024 Folate [Mass/volume] in Serum or Plasma FOLATE, SERUM Lab Routine Anemia, unspecified type Expected: 07/01/2024, Expires: 09/30/2024 [facility] Comment on above: Expected: 07/01/2024 , Expires: 09/30/2024 Start: 06-30-2024 End: 09-29-2024 Comprehensive metabolic 2000 panel - Serum or Plasma [facility] Work Phone: Comment on above: Expected: 06/30/2024 , Expires: 09/29/2024 Start: 06-30-2024 End: 09-29-2024 Microalbumin/Creatinine [Mass Ratio] in Urine [facility] Comment on above: Expected: 06/30/2024 , Expires: 09/29/2024 Start: 05-17-2024 Hemoglobin A1c measurement HbA1C [facility] Start: 05-16-2024 Hepatitis B screening Urine Al bumin:Creatinine Ratio [facility] Start: 05-16-2024 End: 05-16-2024 Patient encounter procedure 05/16/2024 12:40 PM EDT Office Visit [facility] [address] [place] [address] PodTegan vega APRN.CONE PICKER [address] [place] [address] 6 month follow up [facility] Comment on above: 6 month follow up Start: 11-15-2023 Hepatitis B surface antibody level LDL CHOLESTEROL [facility] Start: 11-14-2023 3 comp foot exam completed DIABETIC FOOT EXAM [facility] Start: 11-14-2023 End: 02-13-2024 Comprehensive metabolic 2000 panel - Serum or Plasma COMP METABOLIC PANEL Lab Routine Controlled type 2 diabetes mellitus without complication, without long-term current use of insulin (HCC) Expected: 11/14/2023, Expires: 02/13/2024 [facility] Work Phone: Comment on above: Expected: 11/14/2023 , Expires: 02/13/2024 Start: 11-14-2023 Diabetic foot examination Diabetic Foot Exam [facility] Start: 11-14-2023 End: 02-13-2024 Hemoglobin A1c in Blood HEMOGLOBIN A1C Lab Routine Controlled type 2 diabetes mellitus without complication, without long-term current use of insulin (HCC) Expected: 11/14/2023, Expires: 02/13/2024 [facility] Work Phone: Comment on above: Expected: 11/14/2023 , Expires: 02/13/2024 Start: 11-14-2023 Hemoglobin A1c measurement HbA1C [facility] Start: 11-14-2023 Hemoglobin A1c/Hemoglobin.total in Blood HbA1C [facility] Start: 11-14-2023 End: 02-13-2024 Lipid 1996 panel - Serum or Plasma LIPID PANEL BASIC Lab Routine ASHD (arteriosclerotic heart disease) Expected: 11/14/2023, Expires: 02/13/2024 [facility] Comment on above: Expected: 11/14/2023 , Expires: 02/13/2024 Start: 08-16-2023 Hemoglobin A1c/Hemoglobin.total in Blood HBA1C [facility] Start: 07-16-2023 Advance Directive Discussion Advance Directive Discussion [facility] Start: 07-16-2023 Behavioral Health Screening Behavioral Health Screening [facility] Start: 07-16-2023 Depression Assessment Depression Ass essment [facility] Start: 05-17-2023 Hemoglobin A1c/Hemoglobin.total in Blood HBA1C [facility] Start: 05-16-2023 End: 08-15-2023 ALBUMIN/CREAT RATIO RND UR [facility] Work Phone: Comment on above: Expected: 05/16/2023 , Expires: 08/15/2023 Start: 05-16-2023 End: 08-15-2023 Hemoglobin A1c in Blood [facility] Work Phone: Comment on above: Expected: 05/16/2023 , Expires: 08/15/2023 Start: 04-20-2023 Hepatitis B screening URINE AL BUMIN:CREATININE RATIO [facility] Start: 03-16-2023 Covid-19 Vaccine () Covid-19 Vaccine () [facility] Start: 03-16-2023 Influenza vaccination INFLUENZA (#1) [facility] Start: 03-11-2023 Glaucoma screening Dilated Retinal E xam [facility] Start: 03-11-2023 Hepatitis C antibody , confirmatory test DILATED RETINAL EXAM [facility] Start: 02-13-2023 End: 04-15-2023 Comprehensive metabolic 2000 panel - Serum or Plasma [facility] Work Phone: Comment on above: Expected: 02/13/2023 , Expires: 04/15/2023 Start: 02-13-2023 End: 04-15-2023 Hemoglobin A1c in Blood [facility] Work Phone: Comment on above: Expected: 02/13/2023 , Expires: 04/15/2023 Start: 11-13-2022 End: 01-13-2023 Comprehensive metabolic 2000 panel - Serum or Plasma COMP METABOLIC PANEL Lab Routine Controlled type 2 diabetes mellitus without complication, without long-term current use of insulin (HCC) Mixed hyperlipidemia Expected: 11/13/2022, Expires: 01/13/2023 [facility] Work Phone: Comment on above: Expected: 11/13/2022 , Expires: 01/13/2023 Start: 11-13-2022 End: 01-13-2023 Hemoglobin A1c in Blood HGB A1C Lab Routine Controlled type 2 diabetes mellitus without complication, without long-term current use of insulin (HCC) Expected: 11/13/2022, Expires: 01/13/2023 [facility] Work Phone: Comment on above: Expected: 11/13/2022 , Expires: 01/13/2023 Start: 11-13-2022 End: 01-13-2023 Lipid 1996 panel - Serum or Plasma LIPID PANEL BASIC Lab Routine Mixed hyperlipidemia Expected: 11/13/2022, Expires: 01/13/2023 [facility] Work Phone: Comment on above: Expected: 11/13/2022 , Expires: 01/13/2023 Start: 10-24-2022 Hemoglobin A1c/Hemoglobin.total in Blood HBA1C [facility] Start: 10-21-2022 COVID-19 VACCINE (6 - Moderna series) COVID-19 VACCINE (6 - Moderna series) [facility] Start: 10-18-2022 3 comp foot exam completed DIABETIC FOOT EXAM [facility] Start: 10-14-2022 Hepatitis B surface antibody level LDL CHOLESTEROL [facility] Start: 07-22-2022 End: 09-21-2022 Hemoglobin A1c in Blood HGB A1C Lab Routine Controlled type 2 diabetes mellitus without complication, without long-term current use of insulin (HCC) Expected: 07/22/2022, Expires: 09/21/2022 [facility] Work Phone: Comment on above: Expected: 07/22/2022 , Expires: 09/21/2022 Start: 07-21-2022 Hemoglobin A1c/Hemoglobin.total in Blood HBA1C [facility] Start: 07-16-2022 ADVANCE DIRECTIVE DISCUSSION ADVANCE DIRECTIVE DISCUSSION [facility] Start: 07-16-2022 DEPRESSION ASSESSMENT DEPRESSION ASS ESSMENT [facility] Start: 06-08-2022 Hepatitis C antibody , confirmatory test DILATED RETINAL EXAM [facility] Start: 04-19-2022 End: 06-19-2022 ALBUMIN/CREAT RATIO RND UR ALBUMIN/CREAT RATIO RND UR Lab Routine Controlled type 2 diabetes mellitus without complication, without long-term current use of insulin (HCC) Expected: 04/19/2022, Expires: 06/19/2022 [facility] Work Phone: Comment on above: Expected: 04/19/2022 , Expires: 06/19/2022 Start: 04-19-2022 End: 06-19-2022 CBC panel - Blood by Automated count CBC Lab Routine Controlled type 2 diabetes mellitus without complication, without long-term current use of insulin (HCC) Expected: 04/19/2022, Expires: 06/19/2022 [facility] Work Phone: Comment on above: Expected: 04/19/2022 , Expires: 06/19/2022 Start: 04-19-2022 End: 06-19-2022 Comprehensive metabolic 2000 panel - Serum or Plasma COMP METABOLIC PANEL Lab Routine Controlled type 2 diabetes mellitus without complication, without long-term current use of insulin (HCC) Expected: 04/19/2022, Expires: 06/19/2022 [facility] Work Phone: Comment on above: Expected: 04/19/2022 , Expires: 06/19/2022 Start: 04-19-2022 End: 06-19-2022 Hemoglobin A1c/Hemoglobin.total in Blood HGB A1C Lab Routine Controlled type 2 diabetes mellitus without complication, without long-term current use of insulin (HCC) Expected: 04/19/2022, Expires: 06/19/2022 [facility] Work Phone: Comment on above: Expected: 04/19/2022 , Expires: 06/19/2022 Start: 04-19-2022 Hepatitis B screening URINE AL BUMIN:CREATININE RATIO [facility] Start: 04-15-2022 Hemoglobin A1c/Hemoglobin.total in Blood HBA1C [facility] Start: 03-16-2022 Influenza vaccination INFLUENZA (Sea son Ended) [facility] Start: 02-23-2022 COVID-19 VACCINE (5 - Booster for Moderna series) COVID-19 VACCINE (5 - Booster for Moderna series) [facility] Start: 07-16-2021 ADVANCE DIRECTIVE DISCUSSION ADVANCE DIRECTIVE DISCUSSION [facility] Start: 07-16-2021 DEPRESSION ASSESSMENT DEPRESSION ASS ESSMENT [facility] Start: 10-18-2014 RSV Vaccine (1 - 1-d ose 75+ series) RSV Vaccine (1 - 1-dose 75+ series) [facility] Start: 1999 Hepatitis B Vaccine (1 of 3 - Risk 3-dose series) Hepatitis B Vaccine (1 of 3 - Risk 3-dose series) [facility] Start: 1999 RSV Vaccine (1 - 1-d ose 60+ series) RSV Vaccine (1 - 1-dose 60+ series) [facility] Start: 10-18-1989 SHINGRIX VACCINE (1 of 2) SHINGRIX VACCINE (1 of 2) [facility] Hemoglobin.gastroint est inal.lower [Presence] in Stool by Immunoassay IMMUNOCHEMICAL FECAL OCCULT BLOOD TEST Lab Routine Anemia, unspecified type Ordered: 07/01/2024 [facility] Comment on above: Ordered: 07/01/2024 Hemoglobin.gastroint est inal.lower [Presence] in Stool by Immunoassay IMMUNOCHEMICAL FECAL OCCULT BLOOD TEST Lab Routine Anemia, unspecified type Ordered: 07/30/2024 [facility] Work Phone: Comment on above: Ordered: 07/30/2024 Patient Education [facility] Work Phone: Patient referral [facility] Work Phone: [facility] Immunizations Immunization Date Immunization Notes Care Provider Gi scott 06-30-2024 COVID-19 vaccine, ag e 12+ yr (PFIZER-BIONTECH COMIRNATY) Tegan Podlogar TACKING STITCH REMOVER.CONE PICKER Work Phone: [facility] 03-27-2024 influenza, high dose seasonal, preservative-free Tegan Podlogar CHICLE GRINDER FEEDER-C Work Phone: [facility] 03-27-2024 influenza virus vaccine, unspecified formulation Marisol Ribeiro MD Work Phone: [facility] 05-16-2023 influenza (HD-IIV4) vaccine, age 65+ yr, high dose, quadrivalent, PF (FLUZONE HIGH-DOSE) Tegan Podlogar TACKING STITCH REMOVER.CONE PICKER Work Phone: [facility] 06-22-2022 Covid Moderna Bivale nt Booster Tegan Podlogar CHICLE GRINDER FEEDER-C Work Phone: [facility] 04-21-2022 influenza, high-dose , quadrivalent vaccine (FLUZONE HIGH DOSE QUADRIVALENT) Tegan Podlogar TACKING STITCH REMOVER.CONE PICKER Work Phone: [facility] 12-29-2021 Covid (Moderna) Tegan Podlog ar CHICLE GRINDER FEEDER-C Work Phone: [facility] 07-26-2021 Covid (Moderna) Tegan Podlog ar CHICLE GRINDER FEEDER-C Work Phone: [facility] 12-09-2020 Covid (Moderna) Tegan Podlog ar CHICLE GRINDER FEEDER-C Work Phone: [facility] 11-08-2020 Covid (Moderna) Tegan Podlog ar CHICLE GRINDER FEEDER-C Work Phone: [facility] 03-16-2020 influenza, injectabl e, quadrivalent, preservative free Tegan Podlogar CHICLE GRINDER FEEDER-C Work Phone: [facility] 03-16-2020 influenza, seasonal, injectable Dr. Jude Ribeiro Work Phone: [facility] 04-11-2019 influenza, high dose seasonal, preservative-free Marisol Ribeiro MD Work Phone: [facility] 05-03-2018 influenza, high dose seasonal, preservative-free Marisol Ribeiro MD Work Phone: [facility] 03-26-2017 influenza, high dose seasonal, preservative-free Marisol Ribeiro MD Work Phone: [facility] 07-12-2016 pneumococcal conjuga te vaccine, 13 valent Marisol Ribeiro MD Work Phone: [facility] 05-29-2016 influenza, high dose seasonal, preservative-free Marisol Ribeiro MD Work Phone: [facility] 04-13-2015 influenza, high dose seasonal, preservative-free Marisol Ribeiro MD Work Phone: [facility] 05-04-2014 influenza, seasonal, injectable Marisol Ribeiro MD Work Phone: [facility] Work Phone: 05-16-2013 influenza virus vaccine, unspecified formulation Marisol Ribeiro MD Work Phone: [facility] 04-22-2012 influenza virus vaccine, unspecified formulation Marisol Ribeiro MD Work Phone: [facility] Work Phone: 12-26-2010 tetanus and diphther ia toxoids, adsorbed, preservative free, for adult use (2 Lf of tetanus toxoid and 2 Lf of diphtheria toxoid) Marisol Ribeiro MD Work Phone: [facility] Work Phone: 05-16-2010 influenza virus vaccine, unspecified formulation Marisol Ribeiro MD Work Phone: [facility] 04-26-2009 influenza virus vaccine, unspecified formulation Marisol Ribeiro MD Work Phone: [facility] Work Phone: 05-21-2008 influenza virus vaccine, unspecified formulation Marisol Ribeiro MD Work Phone: [facility] Work Phone: 05-21-2008 pneumococcal polysaccharide vaccine, 23 valent Marisol Ribeiro MD Work Phone: [facility] Work Phone: 05-04-2006 influenza virus vaccine, unspecified formulation Marisol Ribeiro MD Work Phone: [facility] Work Phone: Payers Date Payer Category Payer Self-pay [id number] 2022 Medicare (Managed Care) FORMERLY [facility] [place] [address] [id number] 2022 Unknown [id number] 2020 Medicare UHC AAR MEDICAR E FORMERLY [facility] MEDICARE HMO [id number] 2020-Present [phone] [address] [address] [place] [address] [facility] [id number] 2020 Medicare [id number] 2005 Private Health Insurance [id number] 2004 Medicare MEDICARE PART A B [id number] Unknown [id number] Unknown [id number] Unknown [id number] Unknown [id number] Unknown [id number] Unknown [id number] Unknown [id number] Unknown [id number] Unknown [id number] Unknown [id number] Social History Date Type Detail Facility Start: 01-12-2011 End: 03-20-2024 Tobacco smoking status KYIS Ex-smoker [facility] End: 07-16-1977 History of tobacco use Current smoker [facility] End: 07-16-1977 History of tobacco use Cigarette Smoker [facility] End: 07-16-1977 History of tobacco use Pipe Smoker [facility] End: 07-16-1977 History of tobacco use Cigar Smoker [facility] History of tobacco use [facility]ws [facility] Start: 10-18-2021 End: 02-07-2025 Alcohol intake Current non-drinker of alcohol (finding) [facility] Start: 1940 Sex Assigned At Not on file [facility] Start: 10-08-2021 End: 04-14-2022 Exposure to SARS-CoV-2 (event) Not sure [facility] Start: 01-12-2011 End: 06-30-2024 Tobacco use and exposure Former smokeless tobacco user [facility] Start: 09-02-2022 End: 01-30-2023 Tobacco smoking status NHIS Unknown if ever smoked [facility] Start: 10-06-2020 None [facility] Start: 10-06-2020 Alone [facility] Start: 1940 Sex Assigned At Male W [facility] Start: 06-22-2020 End: 02-13-2023 History of Social function [facility] Start: 06-22-2020 End: 02-13-2023 Tobacco use panel [facility] Adult Depression Screening Assessment 0 [facility] Medical Equipment Procedure Code Equipment Code Equipment Original Text Equipment Identifier Dates [id number], [id number], [id number], [id number], [id number], [id number] Start: 03-26-2019 End: 02-07-2025 Comment on above: 1 Strip once daily. Dx:E11.9 Insulin: No Test blood sugar onc e daily and as needed Test blood sugar(s) 2 times daily. Dx: Type 2 DM - Controlled E11.9 Insulin: No Functional Status Date Assessment Result Facility 05-04-2014 Are you deaf, or do you have serious difficulty hearing No 05/04/2014 1:27 PM Teena Barnes LPN No [facility] 05-04-2014 Are you blind, or do you have serious difficulty seeing, even when wearing glasses No 05/04/2014 1:27 PM Teena Barnes LPN No [facility] 05-04-2014 Do you have serious difficulty walking or climbing stairs No 05/04/2014 1:27 PM Teena Barnes LPN No [facility] 05-04-2014 Do you have difficul ty dressing or bathing No 05/04/2014 1:27 PM Teena Barnes LPN No [facility] 05-04-2014 Because of a physica l, mental, or emotional condition, do you have difficulty doing errands alone such as visiting a physician's office or shopping No 05/04/2014 1:27 PM Teena Barnes LPN No [facility] Mental Status Date Assessment Result Facility 09-02-2022 Cognitive function Level Of Cons ciousness Awake;Alert;Appropriate;Fol lows Commands [facility] Work Phone: 05-04-2014 Because of a physica l, mental, or emotional condition, do you have serious difficulty concentrating, remembering, or making decisions No 05/04/2014 1:27 PM EDT Teena Lynch LPN No [facility] Clinical Notes 04-10-2017 to 05-27-2025 Note Date & Type Note Facility 05-27-2025 Note HNO ID: [id number] Author: LOR DE LA CRUZ LSW Service: Care Management Author Type: Catcher Filter Tip Type: Care Mgt Progress Note Filed: 05/27/2025 14:51 Note Text: ---- Summary: DEE ---- SOCIAL WORK PROGRESS NOTE Name: Keith Kevin Sent follow up email to Berta [facility] re: referral and any concerns she may have. Signature: MERYL Miller Date: May 27, 2025 Time: 2:51 PM [facility] 05-27-2025 Note HNO ID: [id number] Author: LOR DE LA CRUZ LSW Service: Care Management Author Type: Catcher Filter Tip Type: Care Mgt Progress Note Filed: 05/27/2025 13:55 Note Text: ---- Summary: Team Rounds ---- MULTIDISCIPLINARY ROUNDS SERVICE DATE: 05/27/2025 ADMISSION DATE: 05/24/2025 SERVICE TIME: 12:30 PM ANTICIPATED D/C DATE: 06/01-06/08 Problem List: ACTIVE PROBLEM LIST Mixed Hyperlipidemia DIVERTICULOSIS COLON - NO HEMORRHAGE Hypertension Sleep Apnea Ashd (Arteriosclerotic Heart Disease) Seborrheic Keratoses Viral Warts, Unspecified Lipoma Solar Lentigo Actinic Skin Damage Melanocytic Nevi of Upper Extremity Or Shoulder Xerosis Cutis History of Acute Anterior Wall CT Bph (Benign Prostatic Hyperplasia) Controlled Type 2 Diabetes Mellitus Without Complication, Without Long-Term Current Use of Insulin (Hcc) Tinnitus Right Inguinal Hernia Prostate Cancer (Hcc) Sick Sinus Syndrome (Hcc) Ddd (Degenerative Disc Disease), Lumbar Altered Mental Status, Unspecified Closed Fracture of Proximal End of Right Humerus Aftercare Attendees Present at Rounds: CAMPBELL, CM, NM, NT, OT, PT, RN. SW Needs Discussed on Rounds: Discharge Needs Family Concerns Mobility Psycho/Social Plan of Care Anticipated Discharge Disposition: Assisted Living Facility with [facility] Last Vitals: BP 123/59 Pulse 72[apical[ Temp (Src) 98.4 (Temporal Artery) Resp 18 Ht 5' 7" (1.70m) Wt 161 lb (73.0kg) SpO2 95% BMI 25.21 kg/(m2). O2 Therapy: Room Air CM Admit 05/24. LOS 3 NRD 05/27. Recent fall, right humerus fx increased confusion high risk 11 SW DC to [facility]. Referral to [facility] 05/26. Will need HH PT,OT,ST OT Largest barrier is bathing and dressing lower body PT Up to 8 stairs with standby A, walking community distances without any assistive devices, barrier is taking the sling off and putting it back on ST Following for mild cognitive impairment NT no concerns RN no concerns Nursing: DOCUMENTED BY: MERYL Miller PATIENT NAME: Keith Kevin DATE: May 27, 2025 TIME: 1:50 PM CSN: [id number] [facility] 05-26-2025 Note HNO ID: [id number] Author: LOR DE LA CRUZ LSW Service: Care Management Author Type: Catcher Filter Tip Type: Care Mgt Progress Note Filed: 05/26/2025 11:49 Note Text: ---- Summary: DEE ---- SOCIAL WORK PROGRESS NOTE Name: Keith Kevin Sent patient's face sheet, HANDP and therapy notes to Berta Branham at [facility] To send periodic updates. Signature: MERYL Miller Date: May 26, 2025 Time: 11:48 AM [facility] 05-25-2025 Note HNO ID: [id number] Author: LOR DE LA CRUZ LSW Service: Care Management Author Type: Catcher Filter Tip Type: Care Mgt Progress Note Filed: 05/25/2025 14:00 Note Text: ---- Summary: [facility] contact ---- SOCIAL WORK PROGRESS NOTE Name: Keith Kevin Spoke with Berta Branham at [facility]. She directed sw to email referral to [email or web address]. Signature: MERYL Miller Date: May 25, 2025 Time: 1:58 PM [facility] 05-25-2025 Note HNO ID: [id number] Author: LOR DE LA CRUZ LSW Service: Care Management Author Type: Catcher Filter Tip Type: Care Mgt Initial Assessment Filed: 05/25/2025 12:26 Note Text: ---- Summary: Initial Assessment ---- CARE MANAGEMENT: ASSESSMENT AND DISCHARGE PLAN SERVICE DATE: May 25, 2025 SERVICE TIME: 12:02 PM PCP: Marisol Ribeiro MD Primary Contact: Extended Emergency Contact Information Primary Emergency Contact: Melchor Kevin Mobile Relation: Dragan Secondary Emergency Contact: Eneida Kevin Mobile Relation: Relative Admission Status: Inpatient Swing Insurance Provider: [facility] MEDICARE PPO Discharge Planning requested by: Per Department Practice Potential Transition Plans Other: See Comment ([facility]) Advance Directives: DPOA/HC and Living Will in EMR Current Living Arrangements and Support Lives with: Alone Type of Residence: Private Residence (House) Support: Children, Family members How do you manage to accomplish the following: Independent: Ambulation, Bathe/Shower, Dress, Meals/Meal Prep, Going to the bathroom Needs Assistance: Medication Management Dependent: Transportation to appointments/community Current Services/Equipment Current Post-Acute Service(s): DME Current DME Type: Cane, Grab bars Discharge Planning Patient Goal(s): Better mobility, Increase strength, Other: See Comment Patient's Other Post-Acute Care Goal(s): Son/DIL would like to get patient into an [facility] is preference. Bigler of Choice Explained: Bigler of Choice Given: Yes Level of Care Discussed: Other: See Comment ([facility] is preference) Discharge Planning Participant(s): Children, Family Patient/Family Comments: (Patient) will definitely need someone with him. Caregiver Assessment: Caregiver is ready, willing and able to meet the patient's needs as recommended by the inter-professional team: Other: See Comment ([facility]) Transport at Discharge: Family Needs Prior to Discharge: Needs Prior to Discharge: To Be Determined, Accepting Facility, Bed Availability, Facility or Agency Choices, Home Care Order, OT/PT Evaluation Post-Acute Discharge Plan: Assisted Living Facility with [facility] Spoke with son and daughter in law (Melchor and Eneida) via phone. They are not available to stay with patient upon discharge and would like him to go to an assisted living facility. Their first is [facility]. Patient has been there previously. to send referral and let family know if [facility] is able to accept. Son expressed that he hopes patient can be at [facility] for 2 weeks. SIGNATURE: MERYL Miller PATIENT NAME: Keith Kevin DATE: May 25, 2025 TIME: 12:22 PM [facility] 05-25-2025 Note HNO ID: [id number] Author: LOR DE LA CRUZ LSW Service: Care Management Author Type: Catcher Filter Tip Type: Care Mgt Progress Note Filed: 05/25/2025 10:55 Note Text: ---- Summary: Attempted Initial Assessment ---- SOCIAL WORK PROGRESS NOTE Name: Keith Kevin To patient's room to complete initial assessment. Patient sleeping soundly in bed. Updated white board. Will return later today. Signature: MERYL Miller Date: May 25, 2025 Time: 10:53 AM [facility] 05-23-2025 Note HNO ID: [id number] Author: LIVAN VICENTE APRN.CONE PICKER Service: Hospital Medicine Author Type: Nurse Practitioner Type: Progress Notes Filed: 05/23/2025 15:42 Note Text: DEPARTMENT OF HOSPITAL MEDICINE PROGRESS NOTE SERVICE DATE: 05/23/2025 SERVICE TIME: 12:35 PM Hospital Medicine/Primary Attending: Grabiel Leigh MD NIGHT AND WEEKEND COVERAGE: [facility] Medicine CAMPBELL 7a-7p Page [id number] 7p-7a Subjective INTERVAL HPI: - patient sitting up in chair; reports ongoing pain to right arm; sling in place - alert to person, place. Unable to recall year without cueing - PT/OT rec SNF-- awaiting pre-cert for therapy; patient agreeable to staying at [facility] for therapy Current Facility-Administered Medications Medication Dose Route Frequency NaCl 0.9% iv flush bag 20 mL INTRAVENOUS PRN aluminum-magnesium hydroxide-simethicone 200-200-20 mg/5 mL 30 mL 30 mL ORAL DAILY PRN acetaminophen 1,000 mg tab(s) (TYLENOL) 1,000 mg ORAL q 8 H insulin lispro injection (rapid acting) (ADMElog) SUBCUTANEOUS w MEALS dextrose 40 % 15 g 15 g ORAL PRN Or glucagon 1 mg injection 1 mg INTRAMUSCULAR PRN Or dextrose 10% iv bolus 12.5 g INTRAVENOUS PRN traMADol 25 mg tab(s) (ULTRAM) 25 mg ORAL q 12 H PRN Objective PHYSICAL EXAM: BP 115/58 Pulse 76 Temp (Src) 97.5 (Temporal) Resp 16 Ht 5' 7" (1.70m) Wt 152 lb 12.5 oz (69.3kg) SpO2 97% BMI 23.92 kg/(m2). O2 Therapy: Room Air Physical Exam Performed GENERAL: Alert, no distress, cooperative SKIN: Skin color, texture, turgor normal. No rashes. HEAD/SINUSES: No significant findings, NC/AT BACK: Back symmetric, ROM normal LUNGS: Lungs clear to all lobes. On RA. CARDIAC: No murmur, RRR ABDOMEN: Abdomen soft, non-tender, BS normal EXTREMITIES: Extremities without edema, clubbing or skin discoloration. Good capillary refill. NEURO: alert to person and place; unable to recall year. Sensation grossly intact PULSES: 2+ radial, 2+ dorsalis pedis Lines, Drains, and Airways None Patient does not currently have any lines, drains or airways. DATA: Diagnostic tests reviewed for today's visit: Most recent labs HOSPITAL COURSE: Keith Kevin is an 84-year-old male with a past medical history notable for DM2, hypertension, history of anterior wall CT, ASHD, sick sinus syndrome s/p pacemaker, prostate cancer, BPH, and recent right proximal humerus fracture admitted to [facility] for evaluation of altered mental status. Workup unremarkable. PT/OT rec SNF, awaiting pre-cert. AM labs ordered. Assessment AND Plan Altered mental status, unspecified Present on Admission: Yes - Presented to [facility] from home 05/21/2025 via EMS for evaluation of generalized weakness and concerns for mental status changes - CT Brain and C-Spine negative for acute processes - CXR, UA, Urine Tox and ABG unremarkable - B1 pending - PT/OT evaluations-- rec SNF; awaiting pre-cert - Fall Precautions Closed fracture of proximal end of right humerus Present on Admission: Yes - seen at [facility] ED 05/19/2025 and diagnosed with right proximal humerus fracture - Seen by Orthopedics 05/20/2025 - Maintain sling for immobilization and NWB RUE - Pain control with bowel regimen - PT/OT evaluations - follow up with ortho 06/03/2025 Controlled type 2 diabetes mellitus without complication, without long-term current use of insulin (HCC) Present on Admission: Yes - Last A1C 6.3% - resume home Metformin - SSI - AC/HS - Hypoglycemic Protocol Hypertension Present on Admission: Yes - not on current therapy at home ASHD (arteriosclerotic heart disease) Present on Admission: Yes History of acute anterior wall CT Present on Admission: Yes - History of CAD with CT 2016 s/p balloon angioplasty - HS Troponins 45, 44, 43 and EKG without ischemic changes concerning for ACS - Lipid panel 02/2025 reviewed - noted statin intolerance - No ASA/Plavix (historically had bleeding) - Follows with [facility] Cardiology - outpatient follow up as scheduled Sick sinus syndrome (HCC) Present on Admission: Yes - S/P Pacemaker 2020 - follows with cardiology at [facility]-- last OV 04/09/2025 Sleep apnea Present on Admission: Yes - Does not use CPAP Prostate cancer (HCC) Present on Admission: Yes - S/p radiation and hormone therapy Medication and Non-Pharmacologic VTE Prophylaxis/Anticoagulants 05/21/25 2300 activity - mobilize patient (de,ny) VTE Prophylaxis: VTE prophylaxis appropriate Disposition: To be determined Plan of care discussed with Provider, RN, Patient Plan communicated to: N/A SIGNATURE: Livan Vicente APRN.CNP PATIENT NAME: Keith Kevin DATE: May 23, 2025 TIME: 12:35 PM [facility] 05-22-2025 Note HNO ID: [id number] Author: CELIA HUMPHREYS RN Service: Care Management Author Type: Registered Nurse Type: Care Mgt Initial Assessment Filed: 05/22/2025 13:44 Note Text: CARE MANAGEMENT: ASSESSMENT AND DISCHARGE PLAN SERVICE DATE: May 22, 2025 SERVICE TIME: 1:39 PM PCP: Marisol Ribeiro MD Primary Contact: Extended Emergency Contact Information Primary Emergency Contact: Melchor Kevin Mobile Relation: Son Secondary Emergency Contact: Eneida Kevin Mobile Relation: Relative Admission Status: Observation Insurance Provider: [facility] MEDICARE PPO Discharge Planning requested by: Potential Transition Plans Retirement Facility/Intermediate Care Facility Advance Directives Current Advance Directive: Health Care Power of Dredge Engineer, Living Will In Chart: Yes Up To Date and Valid: Yes Current Living Arrangements and Support Lives with: Alone Type of Residence: Private Residence (House) Does the patient have to climb stairs at home?: Yes Support: Children, Family members How do you manage to accomplish the following: Independent: Ambulation, Bathe/Shower, Dress, Meals/Meal Prep, Going to the bathroom Needs Assistance: Medication Management Dependent: Transportation to appointments/community Current Services/Equipment Current Post-Acute Service(s): DME Current DME Type: Grab bars, Cane Discharge Planning Patient Goal(s): Increase strength, Better mobility Bigler of Choice Explained: Bigler of Choice Given: Yes Level of Care Discussed: Retirement Facility Are you interested in bedside delivery of your medications? No Discharge Planning Participant(s): Children, Patient Patient/Family Comments: Caregiver Assessment: Caregiver is ready, willing and able to meet the patient's needs as recommended by the inter-professional team: No Transport at Discharge: Needs Prior to Discharge: Needs Prior to Discharge: To Be Determined, OT/PT Evaluation Post-Acute Discharge Plan: Met with pt on rounds this morning with PA. Pt awake and answers simple questions appropriately. Pt lives alone in two story home. He doesn't use an dme. He doesn't drive. His son Melchor (MPOA) lives 6 houses from him and assists with transport and groceries. His brother is in [facility](memory care). PA examined pt and discussed plan of care. Discussed probable need for rehab. Pt is agreeable. Awaiting therapy evals. Will need precert. Spoke with son Melchor via phone- updated. Discussed rehab- son agreeable. Discussed foc of choice and offered snf list. Son declined he would prefer pt to stay at [facility] for rehab. Explained insurance precert process. Son confirmed pts PLOF and living situation. Son works long hours and is not able to assist pt much at all. He is interested in a continuous churn buttermaker plan (ecf, [place], private duty). SW to follow with son next week. SIGNATURE: Celia Humphreys RN PATIENT NAME: Keith Kevin DATE: May 22, 2025 TIME: 1:39 PM [facility] 05-21-2025 Note SARS-COV-2 (AGENT OF COVID-19) RNA: Not detected INFLUENZA A RNA: Not detected INFLUENZA B RNA: Not detected RESPIRATORY SYNCYTIAL VIRUS (RSV) RNA: Not detected [facility] Comment on above: Performed By: #### 9 [id number] ####[facility] LABIA [id number] [place] [address] [facility] 05-20-2025 Note HNO ID: [id number] Author: RUTHY BOCANEGRA APRN.ARETHA Service: ? Author Type: Nurse Practitioner Type: Progress Notes Filed: 05/23/2025 11:00 Note Text: SHOULDER/ELBOW INITIAL CONSULT Recording using ambient revoPT software for draft documentation of the visit was discussed with the patient/authorized customer operations representative; all questions welcomed and answered. Patient/authorized customer operations representative agreed to proceed SERVICE DATE: 05/20/2025 PCP: Marisol Ribeiro MD ED follow up CHIEF COMPLAINT: right shoulder pain SUBJECTIVE HISTORY OF PRESENT ILLNESS: 84-year-old male with DMII presenting with a left shoulder injury sustained yesterday. Keith fell yesterday and injured his left shoulder, went to ED, dx with proximal HH fx, placed in sling, presents for follow up He reports significant pain at times, though he is not currently taking any pain medication. He was given oxycodone last night (12 tablets prescribed) and is currently taking Tylenol Arthritis 600 mg BID. He is right-hand dominant and has no prior history of injury or surgery to the left shoulder. He lives alone and is independent with most ADLs, including cooking his own meals. His son, who lives 6 houses away, checks on him daily after work, checks his blood sugar, and assists with bathing and shaving. The son works 12-14 hour days and is concerned about Keith safety at home, especially given his recent falls and current functional limitations with only one usable arm. Keith fell again while getting into the car to come to this appointment. This is reportedly his fifth fall, He does not use a cane or walker, though his son states he is supposed to. Hand Dominance: Right handed Occupation: not working Recreation/Hobbies/Activities: watch TV, westerns Pain Best:0/10, Worst: 8/10 Function (out of 100%):0% Lives alone PATIENT HISTORY ACTIVE PROBLEM LIST Mixed Hyperlipidemia Nocturia SCREEN (SEE ALSO ADMISSION) CANCER - COLON DIVERTICULOSIS COLON - NO HEMORRHAGE Bradycardia Hypertension Sleep Apnea Acute CT Anterior Wall First Episode Care (Hcc) Ashd (Arteriosclerotic Heart Disease) Seborrheic Keratoses Viral Warts, Unspecified Lipoma Other Seborrheic Dermatitis Solar Lentigo Actinic Skin Damage Melanocytic Nevi of Upper Extremity Or Shoulder Xerosis Cutis History of Acute Anterior Wall CT Bph W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 his glucose on a a few times a week schedule with sugars in the range .[id number] Patient's last HgA1C was Hemoglobin A1C (%) Date Value 05/16/2023 6.7 02/13/2023 7.4 04/19/2021 6.5 10/05/2020 6.1 ) Last Ophthalmology exam- needs to schedule appointment CAD/PACEMAKER: follows with [facility] cardiology with last visit on 05/03/2023. Has upcoming appointment next month. Denies SOB, dyspnea, orthopnea, cough, chest pain, palpitations or leg edema Prostate Cancer: follows with urology every 6 months with last appointment in 06/28/2023. No changes to regime made. PAST MEDICAL HISTORY Diagnosis Date Acute myocardial infarction of other specified sites, episode of care unspecified 10/12/2012 Myocardial Infarction Asbestos exposure Bradycardia CAD (coronary artery disease) Diverticulosis of colon (without mention of hemorrhage) Elevated prostate specific antigen (PSA) 07/2020 Inguinal hernia without mention of obstruction or gangrene, bilateral, (not specified as recurrent) Nonspecific abnormal finding in stool contents Osteopenia Other and unspecified hyperlipidemia Other specified gastritis with hemorrhage Pacemaker Prostate cancer (HCC) 07/2020 Dr. Dai Refusal of statin medication by patient Sick sinus syndrome (HCC) ST elevation myocardial infarction (STEMI) of anterior wall (HCC) 10/02/2012 PCI not amenable to stent Tinnitus Type II or unspecified type diabetes mellitus without mention of complication, not stated as uncontrolled ALLERGIES Atorvastatin, Dicloxacillin, Penicillins, Plavix [Clopidogrel Bisulfate], and Red Yeast Rice MEDICATIONS Current Outpatient Medications Medication Sig metFORMIN ER (GLUCOPHAGE XR) 500 mg 24 hr tablet Take 2 tablets by mouth two times a day before meals. naproxen (NAPROSYN) 500 mg tablet Take 1 tablet by mouth twice daily as needed (for pain/inflammation). Take with food. blood sugar diagnostic (BLOOD GLUCOSE TEST) test strip Test blood sugar(s) 2 times daily. Dx: Type 2 DM - Controlled E11.9 Insulin: No Lancets lancets Test blood sugar(s) 2 times daily. Dx: Type 2 DM - Controlled E11.9 Insulin: No blood sugar diagnostic (ONETOUCH ULTRA TEST) test strip Test blood sugar once daily and as needed blood sugar diagnostic (ONETOUCH ULTRA TEST) test strip 1 Strip once daily. Dx:E11.9 Insulin: No Blood-Glucose Meter (ONETOUCH ULTRA2) monitoring kit 1 Each as needed. One Touch Meter Kit Diagnosis: Type 2 DM - Controlled E11.9 OTC PRODUCT 2 capsules twice daily. Ros Rich Dietary Supplement OTC PRODUCT 0.5 scoops twice daily. Reverse Age OTC PRODUCT 0.5 scoops twice daily. Cardio Sentials Aspirin 81 mg Tab Takes BID (Patient not taking: Reported on 2020 ) OTC PRODUCT drinking ginseng tea 2-3 cups daily No current facility-administered medications for this visit. Medications and allergies reviewed by this provider. SOCIAL HISTORY Social History Tobacco Use Smoking status: Former Types: Cigarettes, Pipe, Cigars Quit date: 07/16/1977 Years since quittin.3 Smokeless tobacco: Former Types: Chew Substance Use Topics Alcohol use: No Drug use: No REVIEW OF SYSTEMS All other reviewed and negative other than HPI. OBJECTIVE: BP 122/74 Pulse 82 Resp 18 Wt 72.7 kg (160 lb 3.2 oz) SpO2 96% BMI 26.66 kg/m . Vital signs reviewed by this provider. APPEARANCE Well appearing, alert, in no acute distress, well-hydrated, well nourished. EYES conjunctiva and sclera normal. HEART RRR with normal S1 and S2, no murmurs, no gallops, no JVD appreciated LUNG clear to auscultation. No wheezes, rhonchi or rales EXTREMITIES Extremities normal, No deformities, No skin discoloration, No edema, and Normal pulses bilaterally. SKIN Skin color, texture, turgor normal, no suspicious rashes or lesions to exposed skin DM foot exam: shoes and socks removed, No deformities, ulcers, calluses, normal distal pulses, and sensitive to 10 gm monofilament Latest Ref Rng 05/16/2023 07/02/2023 Creatinine, Ur Random (UCRR) 20.0 - 300.0 mg/dL 230.0 Albumin, Urine Random mg/L 22.2 Albumin/Creat Ratio <30 mg/g 10 Hemoglobin A1C 4.3 - 5.6 % 6.7 (H) Estimated Average Glucose mg/dL 146 PSA <2.60 ng/mL <0.02 PSA, Percent Free -- Legend: (H) High Shingrix Vaccine(1 of 2) Never done RSV Vaccine(1 - 1-dose 60+ series) Never done Dilated Retinal Exam due on 03/11/2023 Covid-19 Vaccine(2022- season) due on 03/16/2023 Advance Directive Discussion Never done Behavioral Health Screening Never done HbA1C due on 11/14/2023 LDL Cholesterol due on 11/15/2023 Urine Albumin:Creatinine Ratio due on 05/16/2024 Diabetic Foot Exam due on 11/13/2024 DTaP,Tdap,Td Vaccine(2 - Td or Tdap) due on 03/13/2028 Influenza Vaccine Completed Pneumococcal Vaccine: 65+ Completed HPV Vaccine Aged Out ASSESSMENT/PLAN: 1. Controlled type 2 diabetes mellitus without complication, without long-term current use of insulin (HCC) - ICD9: 250.00, ICD10: E11.9 (primary diagnosis) - Control undetermined, due for labs - Continue current medications - Statin prescribed - declined - Blood glucose monitoring on a once daily schedule - Counseled on healthy diet and regular exercise - Follow up in 6 months, sooner should any other issues arise. - HEMOGLOBIN A1C 2. Sick sinus syndrome (HCC) - ICD9: 427.81, ICD10: I49.5 - stable - follow-up with cardiology as scheduled 3. Prostate cancer (HCC) - ICD9: 185, ICD10: C61 - stable - follow-up with urology as recommended 4. ASHD (arteriosclerotic heart disease) - ICD9: 414.00, ICD10: I25.10 - stable - LIPID PANEL BASIC - follow-up with cardiology a recommended 5. Pacemaker - ICD9: V45.01, ICD10: Z95.0 - stable - follow-up with cardiology as recommended 6. Statin declined - ICD9: V64.2, ICD10: Z53.20 - continue with lower saturated 7. Mixed hyperlipidemia - ICD9: 272.2, ICD10: E78.2 - Control undetermined, due for labs - Counseled on healthy diet and regular exercise - Discussed need for and benefit of weight loss. BMI 26.66 kg/(m^2) - Follow up in 6 months, sooner should any other issues arise. 8. Depression screening - ICD9: V79.0, ICD10: Z13.31 - BEHAVIORAL HEALTH SCREENING Tegan Wing APRN.CNP Prescription instructions reviewed with patient as applicable. Patient advised if symptoms do not improve or if symptoms worsen sooner, to contact their primary care physician. Potential red flag symptoms discussed with the patient. Reviewed appropriate action plan to take if red flag symptoms occur. Patient agreeable to treatment plan. Medical Decision Making: Problems: Moderate: 2+ stable chronic illnesses Data: Unique test(s) ordered: 2 Risk: Moderate: Moderate risk from testing/treatment Medical Decision Making Level: 4 - Moderate documented in this [facility] Health [place]-10-2024 Miscellaneous Notes* Telephone Encounter - Nishi Rees - 10/24/2023 12:32 PM EDT Patient has been identified by name and date of : Yes, Provider Quintin Patient phones for refill(s): Requested Prescriptions Pending Prescriptions Disp Refills metFORMIN ER (GLUCOPHAGE XR) 500 mg 24 hr tablet 360 tablet 2 Sig: Take 2 tablets by mouth two times a day before meals. Date of last office visit in primary care: 05/16/2023 Date of next office visit in primary care: 11/14/2023 Please advise. Thank you. Nishi Munguia. documented in this encounterK[facility] [place]04-02-2024 History of Present illness Narrative* Carol Williamson MA - 10/16/2023 11:06 AM EDT POPULATION HEALTH NAVIGATION OUTREACH Action/FYI msg to schedule wellness Reason for Outreach Care Gap/HCC or Scheduling Wellness Visits Care Gaps due: Medicare Annual Wellness Visit Patient Contacted: Unable or unnecessary to reach patient: Left message Navigation Signature: Carol Williamson MA October 16, 2023 11:06 AM documented in this encounterK[facility] [place]11-08-2023 Miscellaneous Notes* Telephone Encounter - Terri Sorenson LPN - 05/23/2023 6:12 PM EST Attempted to contact patient by telephone again. Phone went directly to voicemail and voicemail is full. Letter sent to patient to contact office. Terri Sorenson LPN * Telephone Encounter - Zeke Sesay LPN - 05/17/2023 2:48 PM EDT Attempted to contact pt again. Call wnet to vm and vm is full. Unable to reach pt. Please try againlater. Zeke Sesay LPN * Telephone Encounter - Zeke Sesay LPN - 05/17/2023 1:50 PM EDT Attempted to contact pt. No answer and vm is full. Unable to leave message. Will need to try to reach pt later. Zeke Sesay LPN * Telephone Encounter - Zeke Sesay LPN - 05/17/2023 1:49 PM EDT ----- Message from Tegan Wing APRN.CONE PICKER sent at 05/17/2023 1:45 PM EDT ----- A1c has improved to 6.7%. Continue current medications, diet and exercise. Urine sample normal. Tegan Wing APRN.CONE PICKER documented in this encounterKettering [facility] [place]11-01-2023 History of Present illness Narrative* MaciejTeganBERTRAND.CONE PICKER - 05/16/2023 2:59 PM EDT 05/16/2023 Patient presents with: F/U 3 Month SUBJECTIVE: This is a 82 year old, accompanied by daughter Denia,that is here today for Above Complaints. Since last office visit has been in good health without ER visits or hospitalizations. DIABETES MELLITUS: Since our last visit he denies excessive thirst or increased frequency of urination, chest pain or dyspnea , numbness, tingling or pain in extremities, new or unusual visual symptoms, low sugar/hypoglycemic reactions, weight loss/gain, lightheadedness/dizziness, and bowel changes/loose stools. Follows a diabetic diet most of the time. He is compliant with medication(s) and is tolerating med(s) without any side effects. He reports checking his glucose on a every other day schedule with sugars in the <150 range. Patient's last HgA1C was Hemoglobin A1C (%) Date Value 02/13/2023 7.4 11/14/2022 7.9 04/19/2021 6.5 10/05/2020 6.1 ) Last Ophthalmology exam was within the past 6 months per patient CAD/PACEMAKER/SSS: follows with [facility] with last office visit on 05/03/2023. Has upcoming appointment this month. Denies SOB, dyspnea, orthopnea, cough, chest pain, palpitations or leg edema Prostate cancer: follows with urology every 6 months with last appointment in 01/01/2023. No changes to regime made. Has upcoming appointment in June Reports legs don't move like they used to. Has had a couple of falls but no injuries. Reports he can not walk fast like he used to. Has a cane and walker but doesn't use them. Very active in the summer but not so much in the winter. Denies leg pain or leg weakness PAST MEDICAL HISTORY Diagnosis Date Acute myocardial infarction of other specified sites, episode of care unspecified 10/12/2012 Myocardial Infarction Asbestos exposure Bradycardia CAD (coronary artery disease) Diverticulosis of colon (without mention of hemorrhage) Elevated prostate specific antigen (PSA) 07/2020 Inguinal hernia without mention of obstruction or gangrene, bilateral, (not specified as recurrent) Nonspecific abnormal finding in stool contents Osteopenia Other and unspecified hyperlipidemia Other specified gastritis with hemorrhage Pacemaker Prostate cancer (HCC) 07/2020 Dr. Dai Refusal of statin medication by patient Sick sinus syndrome (HCC) ST elevation myocardial infarction (STEMI) of anterior wall ([facility]) 10/02/2012 PCI not amenable to stent Tinnitus Type II or unspecified type diabetes mellitus without mention of complication, not stated as uncontrolled ALLERGIES Atorvastatin, Dicloxacillin, Penicillins, Plavix [Clopidogrel Bisulfate], and Red Yeast Rice MEDICATIONS Current Outpatient Medications Medication Sig metFORMIN ER (GLUCOPHAGE XR) 500 mg 24 hr tablet Take 2 tablets by mouth twice daily before meals. naproxen (NAPROSYN) 500 mg tablet Take 1 tablet by mouth twice daily as needed (for pain/inflammation). Take with food. blood sugar diagnostic (BLOOD GLUCOSE TEST) test strip Test blood sugar(s) 2 times daily. Dx: Type 2 DM - Controlled E11.9 Insulin: No Lancets lancets Test blood sugar(s) 2 times daily. Dx: Type 2 DM - Controlled E11.9 Insulin: No blood sugar diagnostic (ONETOUCH ULTRA TEST) test strip Test blood sugar once daily and as needed blood sugar diagnostic (ONETOUCH ULTRA TEST) test strip 1 Strip once daily. Dx:E11.9 Insulin: No Blood-Glucose Meter (ONETOUCH ULTRA2) monitoring kit 1 Each as needed. One Touch Meter Kit Diagnosis: Type 2 DM - Controlled E11.9 OTC PRODUCT 2 capsules twice daily. Ros Rich Dietary Supplement OTC PRODUCT 0.5 scoops twice daily. Reverse Age OTC PRODUCT 0.5 scoops twice daily. Cardio Sentials Aspirin 81 mg Tab Takes BID (Patient not taking: Reported on 2020 ) OTC PRODUCT drinking ginseng tea 2-3 cups daily No current facility-administered medications for this visit. Medications and allergies reviewed by this provider. SOCIAL HISTORY Social History Tobacco Use Smoking status: Former Types: Cigarettes, Pipe, Cigars Quit date: 07/16/1977 Years since quittin.8 Smokeless tobacco: Former Types: Chew Substance Use Topics Alcohol use: No Drug use: No REVIEW OF SYSTEMS All other reviewed and negative other than HPI. OBJECTIVE: BP 112/66 Pulse 79 Resp 18 Wt 70.2 kg (154 lb 12.8 oz) SpO2 98% BMI 25.76 kg/m . Vital signs reviewed by this provider. APPEARANCE Well appearing, alert, in no acute distress, well-hydrated, well nourished. EYES conjunctiva and sclera normal. HEART RRR with normal S1 and S2, no murmurs, no gallops, no JVD appreciated LUNG clear to auscultation. No wheezes, rhonchi or rales EXTREMITIES Extremities normal, No deformities, No skin discoloration, and No edema SKIN Skin color, texture, turgor normal, no suspicious rashes or lesions to exposed skin Component Latest Ref Rng & Units 02/13/2023 WBC 3.70 - 11.00 k/uL 4.28 RBC 4.20 - 6.00 m/uL 3.81 (L) Hemoglobin 13.0 - 17.0 g/dL 12.8 (L) Hematocrit 39.0 - 51.0 % 36.7 (L) MCV 80.0 - 100.0 fL 96.3 MCH 26.0 - 34.0 pg 33.6 MCHC 30.5 - 36.0 g/dL 34.9 RDW-CV 11.5 - 15.0 % 12.1 Platelet Count 150 - 400 k/uL 226 MPV 9.0 - 12.7 fL 9.3 Neut% % 59.0 Abs Neut (ANC) 1.45 - 7.50 k/uL 2.52 Lymph% % 28.7 Abs Lymph 1.00 - 4.00 k/uL 1.23 [place]% % 7.9 Abs [place] <0.87 k/uL 0.34 Eosin% % 3.3 Abs Eosin <0.46 k/uL 0.14 Baso% % 0.9 Abs Baso <0.11 k/uL 0.04 Immature Gran % % 0.2 IMMATURE GRANS (ABS) <0.10 k/uL <0.03 NRBC /100 WBC 0.0 Absolute nRBC <0.01 k/uL <0.01 DTYPE Auto Protein, Total 6.3 - 8.0 g/dL 6.9 Albumin 3.9 - 4.9 g/dL 4.5 Calcium 8.5 - 10.2 mg/dL 9.8 Bilirubin, Total 0.2 - 1.3 mg/dL 0.3 Alkaline Phosphatase 38 - 113 U/L 78 AST 14 - 40 U/L 17 ALT 10 - 54 U/L 12 Glucose 74 - 99 mg/dL 196 (H) BUN 9 - 24 mg/dL 15 Creatinine 0.73 - 1.22 mg/dL 0.78 Sodium 136 - 144 mmol/L 139 Potassium 3.7 - 5.1 mmol/L 4.0 Chloride 97 - 105 mmol/L 101 CO2 22 - 30 mmol/L 25 Anion Gap 9 - 18 mmol/L 13 eGFR >=60 mL/min/1.73m 88 Hemoglobin A1C 4.3 - 5.6 % 7.4 (H) Estimated Average Glucose mg/dL 166 Component Latest Ref Rng & Units 11/14/2022 Cholesterol, Total <200 mg/dL 247 (H) Triglyceride <150 mg/dL 151 (H) HDL Cholesterol >39 mg/dL 52 Non HDL Cholesterol <130 mg/dL 195 (H) Fasting Time hrs 12 VLDL Cholesterol <30 mg/dL 30 (H) TC:HDL Ratio <5.10 4.75 LDL Cholesterol <100 mg/dL 165 (H) LDL:HDL Ratio <2.54 3.17 (H) Shingrix Vaccine(1 of 2) Never done Hepatitis B Vaccine(1 of 3 - Risk 3-dose series) Never done RSV Vaccine(1 - 1-dose 60+ series) Never done Advance Directive Discussion Never done Depression Assessment Never done Dilated Retinal Exam due on 03/11/2023 Influenza Vaccine(1) due on 03/16/2023 Covid-19 Vaccine( - 2022- season) due on 03/16/2023 Urine Albumin:Creatinine Ratio due on 04/20/2023 HbA1C due on 08/16/2023 Diabetic Foot Exam due on 11/14/2023 LDL Cholesterol due on 11/15/2023 DTaP,Tdap,Td Vaccine(2 - Td or Tdap) due on 03/13/2028 Pneumococcal Vaccine: 65+ Completed HPV Vaccine Aged Out ASSESSMENT/PLAN: 1. Controlled type 2 diabetes mellitus without complication, without long-term current use of insulin (HCC) - ICD9: 250.00, ICD10: E11.9 (primary diagnosis) - Control undetermined, due for labs - Continue current medications - Statin prescribed - No, patient declined - Counseled on healthy diet and regular exercise - Discussed need for and benefit of weight loss. BMI 25.76 kg/(m^2) - Follow up in 6 months, sooner should any other issues arise. - ALBUMIN/CREAT RATIO RND UR - HGB A1C - COMP METABOLIC PANEL 2. Encounter for immunization - ICD9: V03.89, ICD10: Z23 - PFIZER-BIONTECH COVID-19 VACCINE ( SEASON) AGE 12+ YR - INFLUENZA VACCINE, PRSV FREE, AGE 65+ YR, HIGH DOSE, QUADRIVALENT (FLUZONE HIGH-DOSE) 3. ASHD (arteriosclerotic heart disease) - ICD9: 414.00, ICD10: I25.10 - stable on current regime - follow-up with cardiology as recommended 4. Prostate cancer (HCC) - ICD9: 185, ICD10: C61 -stable - follow-up with urology as recommended 5. Pacemaker - ICD9: V45.01, ICD10: Z95.0 - plan as in #3 6. Sick sinus syndrome (HCC) - ICD9: 427.81, ICD10: I49.5 - plan as in #3 7. Fall, initial encounter - ICD9: E888.9, ICD10: W19.XXXA - offered PT referral - encouraged to use cane or walker - follow-up as needed Tegan Wing APRN.CONE PICKER Prescription instructions reviewed with patient as applicable. Patient advised if symptoms do not improve or if symptoms worsen sooner, to contact their primary care physician. Potential red flag symptoms discussed with the patient. Reviewed appropriate action plan to take if red flag symptoms occur. Patient agreeable to treatment plan. I spent a total of 25 minutes on the date of the service which included preparing to see the patient, [id number] patient care, completing clinical documentation, obtaining and/or reviewing separately obtained history, performing a medically appropriate examination, counseling and educating the pat ient/family/caregiver, and ordering medications, tests, or procedures. documented in this encounterK[facility] [place]08-02-2023 Miscellaneous Notes* Telephone Encounter - Marlene Brady RN - 02/14/2023 9:31 AM EDT Pt called and is notified of providers results and instructions. Pt voices understanding. Marlene Brady RN * Telephone Encounter - Berenice Gonzalez RN - 02/14/2023 9:21 AM EDT Images from the original note were not included. Attempted to contact patient regarding provider's message below at number listed. No answer and VM box is full. Please try contacting patient again. Thank you. Berenice Gonzalez RN COPIED: Result Notes Tegan Wing APRN.CNP 02/14/2023 7:32 AM EDT Great improvement A1c down to 7.4% from 7.9%. Mild anemia- will recheck at next office visit. Tegan Wing APRN.CNP documented in this encounterK[facility] [place]08-01-2023 History of Present illness Narrative* Tegan Wing APRN.CNP - 02/13/2023 1:21 PM EDT 02/13/2023 Patient presents with: Follow Up SUBJECTIVE: This is a 82 year old that is here today for Above Complaints. Since last office visit has been in good health without ER visits or hospitalizations. DIABETES MELLITUS: Mr. Kevin was last seen on 11/13/2022. Since our last visit he denies excessive thirst or increased frequency of urination, chest pain or dyspnea , numbness, tingling or pain in extremities, new or unusual visual symptoms, low sugar/hypoglycemic reactions, weight loss/gain, lighthe adedness/dizziness, and bowel changes/loose stoolsFollows a diabetic diet most of the time. He is compliant with medication(s) and is tolerating med(s) without any side effects. He reports checking his glucose on a once in awhile schedule with sugars in the <200 range. Patient's last HgA1C was Hemoglobin A1C (%) Date Value 11/14/2022 7.9 07/26/2022 10.4 04/19/2021 6.5 10/05/2020 6.1 ) Last Ophthalmology exam was 02/22/2022 CAD/PACEMAKER/SSS: follows with [facility] with last office visit on 10/30/2022. Has upcoming appointment this month. Denies SOB, dyspnea, orthopnea, cough, chest pain, palpitations or leg edema Prostate cancer: follows with urology every 6 months with last appointment in 01/01/2023. No changes to regime made. PAST MEDICAL HISTORY Diagnosis Date Acute myocardial infarction of other specified sites, episode of care unspecified 10/12/2012 Myocardial Infarction Asbestos exposure Bradycardia CAD (coronary artery disease) Diverticulosis of colon (without mention of hemorrhage) Elevated prostate specific antigen (PSA) 07/2020 Inguinal hernia without mention of obstruction or gangrene, bilateral, (not specified as recurrent) Nonspecific abnormal finding in stool contents Osteopenia Other and unspecified hyperlipidemia Other specified gastritis with hemorrhage Pacemaker Prostate cancer (HCC) 07/2020 Dr. Dai Refusal of statin medication by patient Sick sinus syndrome ([facility]) ST elevation myocardial infarction (STEMI) of anterior wall ([facility]) 10/02/2012 PCI not amenable to stent Tinnitus Type II or unspecified type diabetes mellitus without mention of complication, not stated as uncontrolled ALLERGIES Atorvastatin, Dicloxacillin, Penicillins, Plavix [Clopidogrel Bisulfate], and Red Yeast Rice MEDICATIONS Current Outpatient Medications Medication Sig metFORMIN ER (GLUCOPHAGE XR) 500 mg 24 hr tablet Take 2 tablets by mouth twice daily before meals. naproxen (NAPROSYN) 500 mg tablet Take 1 tablet by mouth twice daily as needed (for pain/inflammation). Take with food. blood sugar diagnostic (BLOOD GLUCOSE TEST) test strip Test blood sugar(s) 2 times daily. Dx: Type 2 DM - Controlled E11.9 Insulin: No Lancets lancets Test blood sugar(s) 2 times daily. Dx: Type 2 DM - Controlled E11.9 Insulin: No blood sugar diagnostic (ONETOUCH ULTRA TEST) test strip Test blood sugar once daily and as needed blood sugar diagnostic (ONETOUCH ULTRA TEST) test strip 1 Strip once daily. Dx:E11.9 Insulin: No Blood-Glucose Meter (ONETOUCH ULTRA2) monitoring kit 1 Each as needed. One Touch Meter Kit Diagnosis: Type 2 DM - Controlled E11.9 OTC PRODUCT 2 capsules twice daily. Ros Rich Dietary Supplement OTC PRODUCT 0.5 scoops twice daily. Reverse Age OTC PRODUCT 0.5 scoops twice daily. Cardio Sentials OTC PRODUCT drinking ginseng tea 2-3 cups daily Aspirin 81 mg Tab Takes BID (Patient not taking: Reported on 2020 ) No current facility-administered medications for this visit. Medications and allergies reviewed by this provider. SOCIAL HISTORY Social History Tobacco Use Smoking status: Former Types: Cigarettes, Pipe, Cigars Quit date: 07/16/1977 Years since quittin.6 Smokeless tobacco: Former Types: Chew Substance Use Topics Alcohol use: No Drug use: No REVIEW OF SYSTEMS All other reviewed and negative other than HPI. OBJECTIVE: BP 110/64 Pulse 60 Resp 16 Ht 165.1 cm (5' 5") Wt 72.5 kg (159 lb 12.8 oz) BMI 26.59 kg/m. Vital signs reviewed by this provider. APPEARANCE Well appearing, alert, in no acute distress, well-hydrated, well nourished. EYES conjunctiva and sclera normal. HEART RRR with normal S1 and S2, no murmurs, no gallops, no JVD appreciated LUNG clear to auscultation. No wheezes, rhonchi or rales EXTREMITIES Extremities normal, No deformities, No skin discoloration, and No edema SKIN Skin color, texture, turgor normal, no suspicious rashes or lesions to exposed skin Component Latest Ref Rng & Units 11/14/2022 Protein, Total 6.3 - 8.0 g/dL 6.7 Albumin 3.9 - 4.9 g/dL 4.5 Calcium 8.5 - 10.2 mg/dL 9.7 Bilirubin, Total 0.2 - 1.3 mg/dL 0.5 Alkaline Phosphatase 38 - 113 U/L 78 AST 14 - 40 U/L 20 ALT 10 - 54 U/L 18 Glucose 74 - 99 mg/dL 153 (H) BUN 9 - 24 mg/dL 16 Creatinine 0.73 - 1.22 mg/dL 0.71 (L) Sodium 136 - 144 mmol/L 138 Potassium 3.7 - 5.1 mmol/L 4.4 Chloride 97 - 105 mmol/L 103 CO2 22 - 30 mmol/L 24 Anion Gap 9 - 18 mmol/L 11 eGFR >=60 mL/min/1.73m 91 Cholesterol, Total <200 mg/dL 247 (H) Triglyceride <150 mg/dL 151 (H) HDL Cholesterol >39 mg/dL 52 Non HDL Cholesterol <130 mg/dL 195 (H) Fasting Time hrs 12 VLDL Cholesterol <30 mg/dL 30 (H) TC:HDL Ratio <5.10 4.75 LDL Cholesterol <100 mg/dL 165 (H) LDL:HDL Ratio <2.54 3.17 (H) Hemoglobin A1C 4.3 - 5.6 % 7.9 (H) Estimated Average Glucose mg/dL 180 SHINGRIX VACCINE(1 of 2) Never done ADVANCE DIRECTIVE DISCUSSION Never done DEPRESSION ASSESSMENT Never done COVID-19 VACCINE(6 - Moderna series) due on 10/21/2022 DILATED RETINAL EXAM due on 03/11/2023 INFLUENZA(1) due on 03/16/2023 URINE ALBUMIN:CREATININE RATIO due on 04/20/2023 HBA1C due on 05/17/2023 DIABETIC FOOT EXAM due on 11/14/2023 LDL CHOLESTEROL due on 11/15/2023 DTAP,TDAP,TD(2 - Td or Tdap) due on 03/13/2028 PNEUMOCOCCAL: 65+ Completed HPV VACCINE Aged Out ASSESSMENT/PLAN: 1. Controlled type 2 diabetes mellitus without complication, without long-term current use of insulin (HCC) - ICD9: 250.00, ICD10: E11.9 (primary diagnosis) - Control to be determined - Continue current medications - Statin prescribed - No, patient declined - Counseled on healthy diet and regular exercise - Discussed diabetic education issues of diabetes complications and monitoring required - Follow up in 3 months, sooner should any other issues arise. - CBC + DIFF - COMP METABOLIC PANEL - HGB A1C 2. Prostate cancer (HCC) - ICD9: 185, ICD10: C61 - follow-up with urology as recommended 3. Mixed hyperlipidemia - ICD9: 272.2, ICD10: E78.2 - Uncontrolled - Counseled on healthy diet and regular exercise - Follow up in 3 months, sooner should any other issues arise. - declines statin 4. ASHD (arteriosclerotic heart disease) - ICD9: 414.00, ICD10: I25.10 - stable - follow-up with cardiology as scheduled 5. Sick sinus syndrome (HCC) - ICD9: 427.81, ICD10: I49.5 - plan as in #4 6. Pacemaker - ICD9: V45.01, ICD10: Z95.0 - plan as in #4 Tegan Wing, BERTRAND.CONE PICKER Prescription instructions reviewed with patient as applicable. Patient advised if symptoms do not improve or if symptoms worsen sooner, to contact their primary care physician. Potential red flag symptoms discussed with the patient. Reviewed appropriate action plan to take if red flag symptoms occur. Patient agreeable to treatment plan. I spent a total of 25 minutes on the date of the service which included preparing to see the patient, [id number] patient care, completing clinical documentation, obtaining and/or reviewing separately obtained history, performing a medically appropriate examination, counseling and educating the pat ient/family/caregiver, and ordering medications, tests, or procedures. documented in this encounterK[facility]07-18-2023 Hospital Discharge instructions Additional Instructions Ice 20 minutes on, 20 minutes off. Do not use heat. Use your wrist splint for the next 3 to 4 days as needed. Follow-up with orthopedic surgery for further care. Take anti-inflammatories with food or ice. Use pain medication as needed.[facility] Work Phone: [phone]) 927-283306-01-2023 Miscellaneous Notes* Telephone Encounter - Nishi Munguia - 12/14/2022 11:43 AM EDT Patient's daughter wants to know if multiple refills can be placed on this rx. * Telephone Encounter - Nishi Munguia - 12/14/2022 11:43 AM EDT Patient has been identified by name and date of : Yes Requested Prescriptions Pending Prescriptions Disp Refills metFORMIN ER (GLUCOPHAGE XR) 500 mg 24 hr tablet 360 tablet 2 Sig: Take 2 tablets by mouth twice daily before meals. SNOW-11/20/22 Labs-11/14/22 NOV-02/13/23 RX INSTRUCTIONS: Patient aware RX will be sent to pharmacy. No need to notify patient. Nishi Munguia documented in this encounterKet[facility] [place]05-08-2023 Miscellaneous Notes* Telephone Encounter - POORNIMA Campbell - 11/20/2022 10:00 AM EDT TC back to patient's daughter. Per phone notes, providers message below given to daughter who verbalizes understanding and has no further questions at this time. POORNIMA Campbell * Telephone Encounter - Tegan Wing APRN.CNP - 11/20/2022 7:06 AM EDT Sounds like he is doing well with diet and reflects in A1c. Will monitor. Tegan Wing APRN.CNP * Telephone Encounter - Yany Johnson LPN - 11/17/2022 4:57 PM EDT Phoned patient's daughter and she walked across to her dad's. I spoke with patient and his daughterreviewed results and recommendations with them. Patient reported he would like to work on diet before starting a statin. He said he eats port wine cheese and chip dip with a spoon. Daughter is willing to assist with helping monitor his diet and reported has [facility] with kale and fresh fruit smoothies for the last few months. Advised them I wouldreport back to Tegan and let her know. They voiced understanding. * Telephone Encounter - Terri Sorenson LPN - 11/15/2022 5:38 PM EDT Patient telephoned, mailbox is full. Please try back later. Terri Sorenson LPN * Telephone Encounter - Tegan Wing APRN.CNP - 11/15/2022 5:08 PM EDT Please let patient know his A1c has improved from 10.4% to 7.9%- great improvement. He reported yesterday when he walked in he was not taking the glipizide as he never picked up. I will take this offhis medication list. Continue to monitor blood sugars daily. He needs to check with insurance on [facility] for the continuous glucometer device as typically is not covered by medicare. Cholesterol hasincreased. Looks like he was intolerant to atorvastatin in the past. Not sure if he ever tried another one but if he is willing I would like him to. He should make sure he eating low saturated fat diet and aim for at least 150 minutes of exercise per week. The rest of blood work is within normal limits. Tegan Wing APRN.CNP documented in this encounterKet[facility]05-01-2023 Instructions* Patient Instructions* Tegan Wing APRN.CNP - 11/13/2022 2:[address] Kalin Downs- president Check your glipizide dose when you get home Fast 10 hours and complete blood work documented in this encounterKettering Health [facility]05-01-2023 History of Present illness Narrative* Tegan Wing APRN.CNP - 11/13/2022 2:15 PM EDT 11/13/2022 Patient presents with: F/U 3 Month SUBJECTIVE: This is a 82 year old that is here today for Above Complaints. DIABETES MELLITUS: Mr. Kevin was last seen on 08/22/2022. Since our last visit he denies excessive thirst or increased frequency of urination, chest pain or dyspnea , numbness, tingling or pain in extremities, new or unusual visual symptoms, low sugar/hypoglycemic reactions, weight loss/gain, lighthe adedness/dizziness, and bowel changes/loose stools Follows a diabetic diet most of the time. He is compliant with medication(s) and is tolerating med(s) without any side effects. He reports checking his glucose on a sporadic schedule with sugars in the 130-200 range. Patient's last HgA1C was Hemoglobin A1C (%) Date Value 07/26/2022 10.4 04/20/2022 8.2 04/19/2021 6.5 10/05/2020 6.1 ) Last Ophthalmology exam was within the past 12 months Reports has been taking full tablet of glipizide instead of half tablet CAD/ PACEMAKER/SSS: follows with cardiology with last appointment on 10/30/2022. No medication changes at that time. Denies SOB, dyspnea, orthopnea, chest pain,palpitations, or leg edema Prostate Cancer: follows with urology every three months with last follow-up on 10/18/2022. No medication changes at that time PAST MEDICAL HISTORY Diagnosis Date Acute myocardial infarction of other specified sites, episode of care unspecified 10/12/2012 Myocardial Infarction Asbestos exposure Bradycardia CAD (coronary artery disease) Diverticulosis of colon (without mention of hemorrhage) Elevated prostate specific antigen (PSA) 07/2020 Inguinal hernia without mention of obstruction or gangrene, bilateral, (not specified as recurrent) Nonspecific abnormal finding in stool contents Osteopenia Other and unspecified hyperlipidemia Other specified gastritis with hemorrhage Pacemaker Prostate cancer (HCC) 07/2020 Dr. Dai Refusal of statin medication by patient Sick sinus syndrome (HCC) ST elevation myocardial infarction (STEMI) of anterior wall (HCC) 10/02/2012 PCI not amenable to stent Tinnitus Type II or unspecified type diabetes mellitus without mention of complication, not stated as uncontrolled ALLERGIES Atorvastatin, Dicloxacillin, Penicillins, Plavix [Clopidogrel Bisulfate], and Red Yeast Rice MEDICATIONS Current Outpatient Medications Medication Sig glipiZIDE (GLUCOTROL) 5 mg tablet Take 0.5 tablets by mouth once daily. metFORMIN ER (GLUCOPHAGE XR) 500 mg 24 hr tablet Take 2 tablets by mouth twice daily before meals. naproxen (NAPROSYN) 500 mg tablet Take 1 tablet by mouth twice daily as needed (for pain/inflammation). Take with food. blood sugar diagnostic (BLOOD GLUCOSE TEST) test strip Test blood sugar(s) 2 times daily. Dx: Type 2 DM - Controlled E11.9 Insulin: No Lancets lancets Test blood sugar(s) 2 times daily. Dx: Type 2 DM - Controlled E11.9 Insulin: No blood sugar diagnostic (ONETOUCH ULTRA TEST) test strip Test blood sugar once daily and as needed blood sugar diagnostic (ONETOUCH ULTRA TEST) test strip 1 Strip once daily. Dx:E11.9 Insulin: No Blood-Glucose Meter (ONETOUCH ULTRA2) monitoring kit 1 Each as needed. One Touch Meter Kit Diagnosis: Type 2 DM - Controlled E11.9 OTC PRODUCT 2 capsules twice daily. Ros Rich Dietary Supplement OTC PRODUCT 0.5 scoops twice daily. Reverse Age OTC PRODUCT 0.5 scoops twice daily. Cardio Sentials Aspirin 81 mg Tab Takes BID (Patient not taking: Reported on 2020 ) OTC PRODUCT drinking ginseng tea 2-3 cups daily No current facility-administered medications for this visit. Medications and allergies reviewed by this provider. SOCIAL HISTORY Social History Tobacco Use Smoking status: Former Types: Cigarettes, Pipe, Cigars Quit date: 07/16/1977 Years since quittin.3 Smokeless tobacco: Former Types: Chew Substance Use Topics Alcohol use: No Drug use: No REVIEW OF SYSTEMS All other reviewed and negative other than HPI. OBJECTIVE: BP 122/68 Pulse 68 Resp 18 Wt 72.4 kg (159 lb 9.6 oz) SpO2 99% BMI 27.40 kg/m . Vital signs reviewed by this provider. APPEARANCE Well appearing, alert, in no acute distress, well-hydrated, well nourished. EYES conjunctiva and sclera normal. HEART RRR with normal S1 and S2, no murmurs, no gallops, no JVD appreciated LUNG clear to auscultation. No wheezes, rhonchi or rales EXTREMITIES Extremities normal, No deformities, No skin discoloration, No edema, and Normal pulses bilaterally. SKIN Skin color, texture, turgor normal, no suspicious rashes or lesions DM foot exam: shoes and socks removed, No deformities, ulcers, calluses, normal distal pulses, sensitive to 10 gm monofilament, and nails notable for Hypertrophic Component Latest Ref Rng & Units 04/20/2022 Protein, Total 6.3 - 8.0 g/dL 6.7 Albumin 3.9 - 4.9 g/dL 4.4 Calcium 8.5 - 10.2 mg/dL 9.5 Bilirubin, Total 0.2 - 1.3 mg/dL 0.7 Alkaline Phosphatase 38 - 113 U/L 89 AST 14 - 40 U/L 29 ALT 10 - 54 U/L 28 Glucose 74 - 99 mg/dL 214 (H) BUN 9 - 24 mg/dL 9 Creatinine 0.73 - 1.22 mg/dL 0.84 Sodium 136 - 144 mmol/L 135 (L) Potassium 3.7 - 5.1 mmol/L 4.1 Chloride 97 - 105 mmol/L 99 CO2 22 - 30 mmol/L 25 Anion Gap 9 - 18 mmol/L 11 eGFR >=60 mL/min/1.73m 87 WBC 3.70 - 11.00 k/uL 3.45 (L) RBC 4.20 - 6.00 m/uL 3.88 (L) Hemoglobin 13.0 - 17.0 g/dL 13.3 Hematocrit 39.0 - 51.0 % 37.7 (L) MCV 80.0 - 100.0 fL 97.2 MCH 26.0 - 34.0 pg 34.3 (H) MCHC 30.5 - 36.0 g/dL 35.3 RDW-CV 11.5 - 15.0 % 12.0 Platelet Count 150 - 400 k/uL 214 MPV 9.0 - 12.7 fL 9.3 Absolute nRBC <0.01 k/uL <0.01 Component Latest Ref Rng & Units 10/14/2021 Cholesterol, Total <200 mg/dL 233 (H) Triglyceride <150 mg/dL 194 (H) HDL Cholesterol >39 mg/dL 49 Non HDL Cholesterol <130 mg/dL 184 (H) Fasting Time hrs 12 VLDL Cholesterol <30 mg/dL 39 (H) TC:HDL Ratio <5.10 4.76 LDL Cholesterol <100 mg/dL 145 (H) LDL:HDL Ratio <2.54 2.96 (H) SHINGRIX VACCINE(1 of 2) Never done ADVANCE DIRECTIVE DISCUSSION Never done DEPRESSION ASSESSMENT Never done LDL CHOLESTEROL due on 10/14/2022 HBA1C due on 10/24/2022 DILATED RETINAL EXAM due on 03/11/2023 URINE ALBUMIN:CREATININE RATIO due on 04/20/2023 DIABETIC FOOT EXAM due on 11/14/2023 DTAP,TDAP,TD(2 - Td or Tdap) due on 03/13/2028 INFLUENZA Completed COVID-19 VACCINE Completed PNEUMOCOCCAL: 65+ Completed ASSESSMENT/PLAN: 1. Controlled type 2 diabetes mellitus without complication, without long-term current use of insulin (HCC) - ICD9: 250.00, ICD10: E11.9 (primary diagnosis) - control to be determined - Continue current medications - Blood glucose monitoring on a once daily schedule - Counseled on healthy diet and regular exercise - Discussed diabetic education issues of diabetes complications and monitoring required and medication-specific side effects and monitoring - Follow up in 3 months, sooner should any other issues arise. - GLIPIZIDE 5 MG TABLET- patient is going to check and see what his bottle says and let me know - HGB A1C - COMP METABOLIC PANEL 2. Mixed hyperlipidemia - ICD9: 272.2, ICD10: E78.2 - statin intolerant - to be determined upon return of lab results - Encouraged following a low fat, low cholesterol diet. - Discussed the benefits of regular aerobic exercise and weight loss. - Follow up in 6 months. - Encouraged following a low carbohydrate, healthy oil intake diet. - LIPID PANEL BASIC - COMP METABOLIC PANEL 3. SSS (sick sinus syndrome) (HCC) - ICD9: 427.81, ICD10: I49.5 - stable - follow-up with cardiology as scheduled 4. ASHD (arteriosclerotic heart disease) - ICD9: 414.00, ICD10: I25.10 - plan as in #3 5. Pacemaker - ICD9: V45.01, ICD10: Z95.0 - plan as in #3 Tegan Wing APRN.CNP Prescription instructions reviewed with patient as applicable. Patient advised if symptoms do not improve or if symptoms worsen sooner, to contact their primary care physician. Potential red flag symptoms discussed with the patient. Reviewed appropriate action plan to take if red flag symptoms occur. Patient agreeable to treatment plan. I spent a total of 30 minutes on the date of the service which included preparing to see the patient, [id number] patient care, completing clinical documentation, obtaining and/or reviewing separately obtained history, performing a medically appropriate examination, counseling and educating the pat ient/family/caregiver, and ordering medications, tests, or procedures. documented in this encounterK[facility]04-26-2023 Miscellaneous Notes* Telephone Encounter - Iris Chin - 11/08/2022 1:58 PM EDT Patient has been identified by name and date of : Yes Requested Prescriptions Pending Prescriptions Disp Refills naproxen (NAPROSYN) 500 mg tablet 60 tablet 1 Sig: Take 1 tablet by mouth twice daily as needed (for pain/inflammation). Take with food. SNOW-09/05/22 Labs-04/20/22 NOV-11/13/22 med filled 09/05/22 RX INSTRUCTIONS: Patient aware RX will be sent to pharmacy. No need to notify patient. Iris Chin documented in this encounterK[facility]03-20-2023 Miscellaneous Notes* Telephone Encounter - Yany Johnson LPN - 10/02/2022 3:50 PM EDT Attempted to contact patient and his VM is still full. Unable to leave message. Letter sent to patient to advise him to call in to get results and recommendations/orders. * Telephone Encounter - Yany Johnson LPN - 09/29/2022 12:13 PM EDT Phoned patient and unable to leave message as patient's VM was full. * Telephone Encounter - Yany Johnson LPN - 09/26/2022 2:36 PM EDT Phoned patient's number and left message for him to return call for update on provider's message regarding blood sugar readings. * Telephone Encounter - Marisol Ribeiro MD - 09/26/2022 2:06 PM EDT Patient sent in sugar readings for the last month and sugars are consistently high >150 with many readings in the mid 200's. Lowest reading 3/ of 127. High reading 09/03 at 352. He seems to be checking his sugars at random times of the day as well. I would recommend checking sugars fasting or before bed. Fasting should be <130. Before bed should be <150. He is on max dose of metformin. I would recommend adding on Glipizide 2.5 mg daily and come in to office in 2 weeks with his readings. Call sooner with low sugars <70 or hypoglycemia symptoms. documented in this encounterK[facility]02-21-2023 History of Present illness Narrative* Tegan Podlogar, TACKING STITCH REMOVER.CONE PICKER - 09/05/2022 1:46 PM EST 09/05/2022 Patient presents with: ER F/U: [facility] 09/02/22 for left hip pain SUBJECTIVE: This is a 81 year old, accompanied by daughter, that is here today for Above Complaints. HOSPITAL/ER FOLLOW UP: Reason for visit: Left hip pain Which facility: [facility] Date of visit: 09/02/2022 Diagnosis: left hip pain Testing done: Left hip xray Treatment given: Vicodin prescription Woke up with left hip pain on 09/02/2022. Reports he had to crawl to the bathroom. Daughter took him to [facility] ER. Today pain is 3/10 aching to sharp pain. Pain mostly to the left hip and at times down side of thigh and into left lower back. Took the last of his Vicodin this morning and requesting refill for pain medication. Has not tried any OTC medications or topicals. Daughter reports 2-3 days prior he had been out cutting up wood. Denies recent or past back/hip injury or surgery, joint redness, warmth or swelling, saddle anaesthesia, urinary/bowel incontinence or inability, extremity numbness, tingling or weakness. ER records reviewed. PAST MEDICAL HISTORY Diagnosis Date Acute myocardial infarction of other specified sites, episode of care unspecified 10/12/2012 Myocardial Infarction Asbestos exposure Bradycardia CAD (coronary artery disease) Diverticulosis of colon (without mention of hemorrhage) Elevated prostate specific antigen (PSA) 07/2020 Inguinal hernia without mention of obstruction or gangrene, bilateral, (not specified as recurrent) Nonspecific abnormal finding in stool contents Osteopenia Other and unspecified hyperlipidemia Other specified gastritis with hemorrhage Pacemaker Prostate cancer (HCC) 07/2020 Dr. Dai Refusal of statin medication by patient Sick sinus syndrome (HCC) ST elevation myocardial infarction (STEMI) of anterior wall (HCC) 10/02/2012 PCI not amenable to stent Tinnitus Type II or unspecified type diabetes mellitus without mention of complication, not stated as uncontrolled ALLERGIES Atorvastatin, Dicloxacillin, Penicillins, Plavix [Clopidogrel Bisulfate], and Red Yeast Rice MEDICATIONS Current Outpatient Medications Medication Sig blood sugar diagnostic (BLOOD GLUCOSE TEST) test strip Test blood sugar(s) 2 times daily. Dx: Type 2 DM - Controlled E11.9 Insulin: No Lancets lancets Test blood sugar(s) 2 times daily. Dx: Type 2 DM - Controlled E11.9 Insulin: No blood sugar diagnostic (ONETOUCH ULTRA TEST) test strip Test blood sugar once daily and as needed metFORMIN ER (GLUCOPHAGE XR) 500 mg 24 hr tablet Take 2 tablets by mouth twice daily before meals. blood sugar diagnostic (ONETOUCH ULTRA TEST) test strip 1 Strip once daily. Dx:E11.9 Insulin: No Blood-Glucose Meter (ONETOUCH ULTRA2) monitoring kit 1 Each as needed. One Touch Meter Kit Diagnosis: Type 2 DM - Controlled E11.9 OTC PRODUCT 2 capsules twice daily. Ros Rich Dietary Supplement OTC PRODUCT 0.5 scoops twice daily. Reverse Age OTC PRODUCT 0.5 scoops twice daily. Cardio Sentials Aspirin 81 mg Tab Takes BID (Patient not taking: Reported on 2020 ) OTC PRODUCT drinking ginseng tea 2-3 cups daily No current facility-administered medications for this visit. Medications and allergies reviewed by this provider. SOCIAL HISTORY Social History Tobacco Use Smoking status: Former Types: Cigarettes, Pipe, Cigars Quit date: 07/16/1977 Years since quittin.1 Smokeless tobacco: Former Types: Chew Substance Use Topics Alcohol use: No Drug use: No REVIEW OF SYSTEMS All other reviewed and negative other than HPI. OBJECTIVE: BP 120/72 Pulse 80 Resp 16 Wt 74.8 kg (164 lb 12.8 oz) SpO2 100% BMI 28.29 kg/m . Vital signs reviewed by this provider. APPEARANCE Well appearing, alert, in no acute distress, well-hydrated, well nourished. BACK: Normal exam, no pain to palpation, good flexion and extension, negative SLR test EXTREMITIES Extremities normal, No deformities, No skin discoloration, and No edema NEURO Awake, alert and oriented x 3, Reflexes symmetrical, Normal gait, No involuntary motions., and negative findings: muscle tone normal, muscle strength normal, reflexes normal and symmetric, plantar response downgoing bilaterally SKIN Skin color, texture, turgor normal, no suspicious rashes or lesions to exposed skin LEFT HIP: FROM. No TTP. Some discomfort with internal and external rotation. No clunking or poopingwith ROM SHINGRIX VACCINE(1 of 2) Never done ADVANCE DIRECTIVE DISCUSSION Never done DEPRESSION ASSESSMENT Never done LDL CHOLESTEROL due on 10/14/2022 DIABETIC FOOT EXAM due on 10/18/2022 HBA1C due on 10/24/2022 DILATED RETINAL EXAM due on 03/11/2023 URINE ALBUMIN:CREATININE RATIO due on 04/20/2023 DTAP,TDAP,TD(2 - Td or Tdap) due on 03/13/2028 INFLUENZA Completed COVID-19 VACCINE Completed PNEUMOCOCCAL: 65+ Completed ASSESSMENT/PLAN: 1. Left hip pain - ICD9: 719.45, ICD10: M25.552 - no red flag symptoms or exam findings - red flag symptoms discussed, verbalizes understanding - recommend resting from cutting wood at this time. Stay active with walking. - offered PT referral- declined at this time - recommend OTC topicals and heat for 15 minutes at a time - NAPROXEN 500 MG TABLET- discussed may take for 1-2 weeks then sparingly - discussed if persists would recommend PT and possible referral to ortho for injection- daughter asking why he would "need to go through all that" at his age for pain control. Discussed narcotic pain medications carry risk for addiction and increase risk falls in the elderly, patient and daughter verbalize understanding - follow-up if pain persists to ER with red flag symptoms Tegan Wing, TACKING STITCH REMOVER.CONE PICKER Prescription instructions reviewed with patient as applicable. Patient advised if symptoms do not improve or if symptoms worsen sooner, to contact their primary care physician. Potential red flag symptoms discussed with the patient. Reviewed appropriate action plan to take if red flag symptoms occur. Patient agreeable to treatment plan. I spent a total of 30 minutes on the date of the service which included preparing to see the patient, [id number] patient care, completing clinical documentation, obtaining and/or reviewing separately obtained history, performing a medically appropriate examination, counseling and educating the pat ient/family/caregiver, and ordering medications, tests, or procedures. documented in this encounterK[facility]02-07-2023 Instructions* Patient Instructions* Tegan Wing APRN.CNP - 08/22/2022 1:13 PM EST Take blood sugar twice a day- one when you first get up in the morning and the other 1-2 hours after second meal of the day- up date me in one month with readings documented in this encounterKet[facility]02-07-2023 History of Present illness Narrative* Tegan Wing APRN.CNP - 08/22/2022 12:32 PM EST 08/22/2022 Patient presents with: F/U 3 Month SUBJECTIVE: This is a 81 year old that is here today for Above Complaints. DIABETES MELLITUS: Mr. Kevin was last seen on 04/21/2022. Since our last visit he denies increased frequency of urination, chest pain or dyspnea , numbness, tingling or pain in extremities, new or unusual visual symptoms, low sugar/hypoglycemic reactions, weight loss/gain, lightheadedness/dizziness,and bowel changes/loose stools. Increased thirst Follows a diabetic diet most of the time. He is compliant with medication(s) and is tolerating med(s) without any side effects. He reports checking his glucose on a infrequent to not at all basis schedule. Patient's last HgA1C was Hemoglobin A1C (%) Date Value 07/26/2022 10.4 04/20/2022 8.2 04/19/2021 6.5 10/05/2020 6.1 ) Last Ophthalmology exam was within the past 12 months Prostate cancer: follows with Dr. Koehler. Last office visit in March of 2022. Reports he has upcoming follow-up CAD/PACEMAKER: Follows with [facility]. Last appointment in April, with appointment next month. No medication changes at that time. Denies SOB, dyspnea, orthopnea, chest pain, palpitations or leg edema PAST MEDICAL HISTORY Diagnosis Date Acute myocardial infarction of other specified sites, episode of care unspecified 10/12/2012 Myocardial Infarction Asbestos exposure Bradycardia CAD (coronary artery disease) Diverticulosis of colon (without mention of hemorrhage) Elevated prostate specific antigen (PSA) 07/2020 Inguinal hernia without mention of obstruction or gangrene, bilateral, (not specified as recurrent) Nonspecific abnormal finding in stool contents Osteopenia Other and unspecified hyperlipidemia Other specified gastritis with hemorrhage Pacemaker Prostate cancer (HCC) 07/2020 Dr. Dai Refusal of statin medication by patient Sick sinus syndrome (HCC) ST elevation myocardial infarction (STEMI) of anterior wall ([facility]) 10/02/2012 PCI not amenable to stent Tinnitus Type II or unspecified type diabetes mellitus without mention of complication, not stated as uncontrolled ALLERGIES Atorvastatin, Dicloxacillin, Penicillins, Plavix [Clopidogrel Bisulfate], and Red Yeast Rice MEDICATIONS Current Outpatient Medications Medication Sig metFORMIN ER (GLUCOPHAGE XR) 500 mg 24 hr tablet Take 2 tablets by mouth twice daily before meals. blood sugar diagnostic (ONETOUCH ULTRA TEST) test strip 1 Strip once daily. Dx:E11.9 Insulin: No Blood-Glucose Meter (ONETOUCH ULTRA2) monitoring kit 1 Each as needed. One Touch Meter Kit Diagnosis: Type 2 DM - Controlled E11.9 OTC PRODUCT 2 capsules twice daily. Ros Rich Dietary Supplement OTC PRODUCT 0.5 scoops twice daily. Reverse Age OTC PRODUCT 0.5 scoops twice daily. Cardio Sentials Aspirin 81 mg Tab Takes BID (Patient not taking: Reported on 2020 ) OTC PRODUCT drinking ginseng tea 2-3 cups daily No current facility-administered medications for this visit. Medications and allergies reviewed by this provider. SOCIAL HISTORY Social History Tobacco Use Smoking status: Former Types: Cigarettes, Pipe, Cigars Quit date: 07/16/1977 Years since quittin.1 Smokeless tobacco: Former Types: Chew Substance Use Topics Alcohol use: No Drug use: No REVIEW OF SYSTEMS All other reviewed and negative other than HPI. OBJECTIVE: BP 132/78 Pulse 86 Resp 18 Wt 73.8 kg (162 lb 12.8 oz) SpO2 98% BMI 27.94 kg/m . Vital signs reviewed by this provider. APPEARANCE Well appearing, alert, in no acute distress, well-hydrated, well nourished. EYES conjunctiva and sclera normal. HEART RRR with normal S1 and S2, no murmurs, no gallops, no JVD appreciated LUNG clear to auscultation. No wheezes, rhonchi or rales EXTREMITIES Extremities normal, No deformities, No skin discoloration, No edema, and Normal pulses bilaterally. SKIN Skin color, texture, turgor normal, no suspicious rashes or lesions Component Latest Ref Rng & Units 10/14/2021 Cholesterol, Total <200 mg/dL 233 (H) Triglyceride <150 mg/dL 194 (H) HDL Cholesterol >39 mg/dL 49 Non HDL Cholesterol <130 mg/dL 184 (H) Fasting Time hrs 12 VLDL Cholesterol <30 mg/dL 39 (H) TC:HDL Ratio <5.10 4.76 LDL Cholesterol <100 mg/dL 145 (H) LDL:HDL Ratio <2.54 2.96 (H) Component Latest Ref Rng & Units 04/20/2022 Protein, Total 6.3 - 8.0 g/dL 6.7 Albumin 3.9 - 4.9 g/dL 4.4 Calcium 8.5 - 10.2 mg/dL 9.5 Bilirubin, Total 0.2 - 1.3 mg/dL 0.7 Alkaline Phosphatase 38 - 113 U/L 89 AST 14 - 40 U/L 29 ALT 10 - 54 U/L 28 Glucose 74 - 99 mg/dL 214 (H) BUN 9 - 24 mg/dL 9 Creatinine 0.73 - 1.22 mg/dL 0.84 Sodium 136 - 144 mmol/L 135 (L) Potassium 3.7 - 5.1 mmol/L 4.1 Chloride 97 - 105 mmol/L 99 CO2 22 - 30 mmol/L 25 Anion Gap 9 - 18 mmol/L 11 eGFR >=60 mL/min/1.73m 87 WBC 3.70 - 11.00 k/uL 3.45 (L) RBC 4.20 - 6.00 m/uL 3.88 (L) Hemoglobin 13.0 - 17.0 g/dL 13.3 Hematocrit 39.0 - 51.0 % 37.7 (L) MCV 80.0 - 100.0 fL 97.2 MCH 26.0 - 34.0 pg 34.3 (H) MCHC 30.5 - 36.0 g/dL 35.3 RDW-CV 11.5 - 15.0 % 12.0 Platelet Count 150 - 400 k/uL 214 MPV 9.0 - 12.7 fL 9.3 Absolute nRBC <0.01 k/uL <0.01 SHINGRIX VACCINE(1 of 2) Never done DILATED RETINAL EXAM due on 06/08/2022 ADVANCE DIRECTIVE DISCUSSION Never done DEPRESSION ASSESSMENT Never done LDL CHOLESTEROL due on 10/14/2022 DIABETIC FOOT EXAM due on 10/18/2022 HBA1C due on 10/24/2022 URINE ALBUMIN:CREATININE RATIO due on 04/20/2023 DTAP,TDAP,TD(2 - Td or Tdap) due on 03/13/2028 INFLUENZA Completed COVID-19 VACCINE Completed PNEUMOCOCCAL: 65+ Completed ASSESSMENT/PLAN: 1. Controlled type 2 diabetes mellitus without complication, without long-term current use of insulin (HCC) - ICD9: 250.00, ICD10: E11.9 (primary diagnosis) worsening control - Continue increased dose of metformin current medications - Blood glucose monitoring on a twice a day schedule - Follow up in 3 months, sooner should any other issues arise. - Discussed diabetic education issues of diet with patient. - LDL goal of <100 - BP goal less than 140/90 - update me in two months with blood sugar readings 2. ASHD (arteriosclerotic heart disease) - ICD9: 414.00, ICD10: I25.10 - stable - follow-up with cardiology as scheduled 3. Pacemaker - ICD9: V45.01, ICD10: Z95.0 - plan as in #2 4. Prostate cancer (HCC) - ICD9: 185, ICD10: C61 - stable - follow-up with urology as scheduled Tegan Wing APRN.CNP Prescription instructions reviewed with patient as applicable. Patient advised if symptoms do not improve or if symptoms worsen sooner, to contact their primary care physician. Potential red flag symptoms discussed with the patient. Reviewed appropriate action plan to take if red flag symptoms occur. Patient agreeable to treatment plan. I spent a total of 30 minutes on the date of the service which included preparing to see the patient, [id number] patient care, completing clinical documentation, obtaining and/or reviewing separately obtained history, performing a medically appropriate examination, counseling and educating the pat ient/family/caregiver, and ordering medications, tests, or procedures. documented in this encounterK[facility]01-13-2023 Miscellaneous Notes* Telephone Encounter - Yany Johnson LPN - 07/28/2022 3:13 PM EST Phoned patient and reviewed provider's message with him. He voiced understanding. * Telephone Encounter - Tegan Wing APRN.CNP - 07/28/2022 3:03 PM EST Please call patient and let him know his A1c has increased quite a bit to 10.4%. Recommend he increase his metformin to 2 pills twice a day. Should check blood sugar fasting daily and would be great if he could check another 1-2 hours after a meal. He missed his appointment today. Recommend he reschedule. New prescription sent. Tegan Wing APRN.CNP documented in this encounterKettering [facility]10-07-2022 History of Present illness Narrative* Tegan Wing APRN.CNP - 04/21/2022 12:53 PM EDT 04/21/2022 Patient presents with: 6 Month Exam SUBJECTIVE: This is a 81 year old that is here today for Above Complaints. Since last office visit has been in good health without ER visits or hospitalizations. DIABETES MELLITUS: Mr. Kevin was last seen 6 months ago. Since our last visit he denies excessive thirst or increased frequency of urination, chest pain or dyspnea , numbness, tingling or pain in extremities, new or unusual visual symptoms, low sugar/hypoglycemic reactions, weight loss/gain, lighthea dedness/dizziness, and bowel changes/loose stools. Follows a diabetic diet some of the time. Admitshe has been eating quite a bit of chocolate. He is compliant with medication(s) and is tolerating med(s) without any side effects. He reports checking his glucose on a infrequent to not at all basis schedule. Patient's last HgA1C was Hemoglobin A1C (%) Date Value 04/20/2022 8.2 10/14/2021 7.0 04/19/2021 6.5 10/05/2020 6.1 Last Ophthalmology exam was within the past 12 months HX of prostate cancer: Follows with Dr. Koehler. Last office appointment 03/21/2022. No medication changes at that time. Has follow-up in 3 months. CAD/PACEMAKER: Follows with [facility] with last appointment 12/19/2021. No medication changes at that time. Denies SOB, dyspnea, orthopnea, chest pain, palpitations or leg edema. Has some dry skin patches on his legs. Areas itch. Has tried OTC lotion with little relief. PAST MEDICAL HISTORY Diagnosis Date Acute myocardial infarction of other specified sites, episode of care unspecified 10/12/2012 Myocardial Infarction Asbestos exposure Bradycardia CAD (coronary artery disease) Diverticulosis of colon (without mention of hemorrhage) Elevated prostate specific antigen (PSA) 07/2020 Inguinal hernia without mention of obstruction or gangrene, bilateral, (not specified as recurrent) Nonspecific abnormal finding in stool contents Osteopenia Other and unspecified hyperlipidemia Other specified gastritis with hemorrhage Pacemaker Prostate cancer (HCC) 07/2020 Dr. Dai Refusal of statin medication by patient Sick sinus syndrome (HCC) ST elevation myocardial infarction (STEMI) of anterior wall ([facility]) 10/02/2012 PCI not amenable to stent Tinnitus Type II or unspecified type diabetes mellitus without mention of complication, not stated as uncontrolled ALLERGIES Atorvastatin, Dicloxacillin, Penicillins, Plavix [Clopidogrel Bisulfate], and Red Yeast Rice MEDICATIONS Current Outpatient Medications Medication Sig metFORMIN ER (GLUCOPHAGE XR) 500 mg 24 hr tablet Take 1 tablet by mouth twice daily before meals. blood sugar diagnostic (ONETOUCH ULTRA TEST) test strip 1 Strip once daily. Dx:E11.9 Insulin: No Blood-Glucose Meter (ONETOUCH ULTRA2) monitoring kit 1 Each as needed. One Touch Meter Kit Diagnosis: Type 2 DM - Controlled E11.9 OTC PRODUCT 2 capsules twice daily. Ros Rich Dietary Supplement OTC PRODUCT 0.5 scoops twice daily. Reverse Age OTC PRODUCT 0.5 scoops twice daily. Cardio Sentials Aspirin 81 mg Tab Takes BID (Patient not taking: Reported on 2020 ) OTC PRODUCT drinking ginseng tea 2-3 cups daily No current facility-administered medications for this visit. Medications and allergies reviewed by this provider. SOCIAL HISTORY Social History Tobacco Use Smoking status: Former Types: Cigarettes, Pipe, Cigars Quit date: 07/16/1977 Years since quittin.7 Smokeless tobacco: Former Types: Chew Substance Use Topics Alcohol use: No Drug use: No REVIEW OF SYSTEMS All other reviewed and negative other than HPI. OBJECTIVE: BP 128/80 Pulse 80 Resp 16 Wt 75 kg (165 lb 6.4 oz) SpO2 97% BMI 28.39 kg/m . Vital signsreviewed by this provider. APPEARANCE Well appearing, alert, in no acute distress, well-hydrated, well nourished. EYES PERRLA, conjunctiva and sclera normal. HEART RRR with normal S1 and S2, no murmurs, no gallops, no JVD appreciated LUNG clear to auscultation SKIN: A few scattered patches of dry flaking skin to bilateral lower legs otherwise Skin color, texture, turgor normal, no suspicious rashes or lesions to exposed skin Component Latest Ref Rng & Units 04/20/2022 Protein, Total 6.3 - 8.0 g/dL 6.7 Albumin 3.9 - 4.9 g/dL 4.4 Calcium 8.5 - 10.2 mg/dL 9.5 Bilirubin, Total 0.2 - 1.3 mg/dL 0.7 Alkaline Phosphatase 38 - 113 U/L 89 AST 14 - 40 U/L 29 ALT 10 - 54 U/L 28 Glucose 74 - 99 mg/dL 214 (H) BUN 9 - 24 mg/dL 9 Creatinine 0.73 - 1.22 mg/dL 0.84 Sodium 136 - 144 mmol/L 135 (L) Potassium 3.7 - 5.1 mmol/L 4.1 Chloride 97 - 105 mmol/L 99 CO2 22 - 30 mmol/L 25 Anion Gap 9 - 18 mmol/L 11 eGFR >=60 mL/min/1.73m 87 WBC 3.70 - 11.00 k/uL 3.45 (L) RBC 4.20 - 6.00 m/uL 3.88 (L) Hemoglobin 13.0 - 17.0 g/dL 13.3 Hematocrit 39.0 - 51.0 % 37.7 (L) MCV 80.0 - 100.0 fL 97.2 MCH 26.0 - 34.0 pg 34.3 (H) MCHC 30.5 - 36.0 g/dL 35.3 RDW-CV 11.5 - 15.0 % 12.0 Platelet Count 150 - 400 k/uL 214 MPV 9.0 - 12.7 fL 9.3 Absolute nRBC <0.01 k/uL <0.01 Creatinine, Ur Random (UCRR) 20.0 - 300.0 mg/dL 196.6 Albumin, Urine Random mg/L 50.4 Albumin/Creat Ratio <30 mg/g 26 Hemoglobin A1C 4.3 - 5.6 % 8.2 (H) Estimated Average Glucose mg/dL 189 Component Latest Ref Rng & Units 10/14/2021 Cholesterol, Total <200 mg/dL 233 (H) Triglyceride <150 mg/dL 194 (H) HDL Cholesterol >39 mg/dL 49 Non HDL Cholesterol <130 mg/dL 184 (H) Fasting Time hrs 12 VLDL Cholesterol <30 mg/dL 39 (H) TC:HDL Ratio <5.10 4.76 LDL Cholesterol <100 mg/dL 145 (H) LDL:HDL Ratio <2.54 2.96 (H) SHINGRIX VACCINE(1 of 2) Never done ADVANCE DIRECTIVE DISCUSSION Never done DEPRESSION ASSESSMENT Never done COVID-19 VACCINE(5 - Booster for Moderna series) due on 02/23/2022 DILATED RETINAL EXAM due on 06/08/2022 HBA1C due on 07/21/2022 LDL CHOLESTEROL due on 10/14/2022 DIABETIC FOOT EXAM due on 10/18/2022 URINE ALBUMIN:CREATININE RATIO due on 04/20/2023 DTAP,TDAP,TD(2 - Td or Tdap) due on 03/13/2028 INFLUENZA Completed PNEUMOCOCCAL: 65+ Completed ASSESSMENT/PLAN: 1. Controlled type 2 diabetes mellitus without complication, without long-term current use of insulin (HCC) - ICD9: 250.00, ICD10: E11.9 (primary diagnosis) worsening control - Continue current medications - Blood glucose monitoring on a once a day schedule- up date me in one month with readings- if not improving would recommend increasing metformin - Encouraged regular aerobic exercise and weight loss - BP goal of <130/80 - LDL goal of <100 - HGB A1C - discussed increasing metformin. Is going to to work on not eating chocolate - follow-up in office in 3 months 2. Itchy skin - ICD9: 698.9, ICD10: L29.9 - possible eczema - use Aquaphor twice a day. Would recommend cooler bath or showers. Apply lotion after getting out of shower - TRIAMCINOLONE ACETONIDE 0.1 % TOPICAL CREAM 3. Encounter for immunization - ICD9: V03.89, ICD10: Z23 - INFLUENZA SEASONAL QUADRIVALENT HIGH DOSE AGE 65+ 4. Mixed hyperlipidemia - ICD9: 272.2, ICD10: E78.2 - suboptimal control - declines statin - Encouraged following a low fat, low cholesterol diet. - Discussed the benefits of regular aerobic exercise and weight loss. - Follow up in 12 weeks. - Encouraged following a low carbohydrate, healthy oil intake diet. 5. ASHD (arteriosclerotic heart disease) - ICD9: 414.00, ICD10: I25.10 - stable on current regime - follow-up with cardiology as scheduled 6. Pacemaker - ICD9: V45.01, ICD10: Z95.0 - stable - follow-up with cardiology as scheduled 7. Prostate cancer (HCC) - ICD9: 185, ICD10: C61 - stable - follow-up with urology as scheduled Tegan Wing APRN.CNP Prescription instructions reviewed with patient as applicable. Patient advised if symptoms do not improve or if symptoms worsen sooner, to contact their primary care physician. Potential red flag symptoms discussed with the patient. Reviewed appropriate action plan to take if red flag symptoms occur. Patient agreeable to treatment plan. I spent a total of 30 minutes on the date of the service which included preparing to see the patient, [id number] patient care, completing clinical documentation, obtaining and/or reviewing separately obtained history, performing a medically appropriate examination, counseling and educating the pat ient/family/caregiver, and ordering medications, tests, or procedures. documented in this encounterK[facility]22 History of Present illness Narrative* Marisol Ribeiro MD - 10/18/2021 1:46 PM EDT Chief Complaint Patient presents with: F/U 6 months HPI Keith Kevin is a 81 year old male who presents here today for Above Complaints. Patient following up with Dr. Dai's office for high risk prostate cancer s/p 44 radiation treatments. Bone scan and CT scan negative for mets at last OV. Recommended he continue on hormone therapy. F/u in 3 months for Sarah. Getting up once per night to urinate. Denies incontinence. DIABETES MELLITUS: Mr. Kevin was last seen 6 months ago. Since our last visit he denies excessive thirst or increased frequency of urination, numbness, tingling or pain in extremities, new or unusual visual symptoms and low sugar/hypoglycemic reactions. Follows a diabetic diet most of the time. He is compliant with medication(s) and is tolerating med(s) without any side effects. He reports checking his glucose on a infrequent to not at all basis. Patient's last HgA1C was Hemoglobin A1C (%) Date Value 10/14/2021 7.0 04/19/2021 6.5 10/05/2020 6.1 ) Last Ophthalmology exam was within the past 12 months Last Podiatry exam was within the past 12 months Patient following up with [facility] cardiology for CAD and SSS with pacemaker in place. Stopped ASA on his own. Recommended he restart this and keep scheduled f/u with cardiology. Asymptomatic on his current regimen. Still refusing statin for high cholesterol. Past medical history, appointments, medications, allergies reviewed. Previous Medical History PAST MEDICAL HISTORY Diagnosis Date Acute myocardial infarction of other specified sites, episode of care unspecified 10/12/2012 Myocardial Infarction Asbestos exposure Bradycardia CAD (coronary artery disease) Diverticulosis of colon (without mention of hemorrhage) Elevated prostate specific antigen (PSA) 07/2020 Inguinal hernia without mention of obstruction or gangrene, bilateral, (not specified as recurrent) Nonspecific abnormal finding in stool contents Osteopenia Other and unspecified hyperlipidemia Other specified gastritis with hemorrhage Pacemaker Prostate cancer (HCC) 07/2020 Dr. Dai Refusal of statin medication by patient Sick sinus syndrome (HCC) ST elevation myocardial infarction (STEMI) of anterior wall (HCC) 10/02/2012 PCI not amenable to stent Tinnitus Type II or unspecified type diabetes mellitus without mention of complication, not stated as uncontrolled Previous Surgical History PAST SURGICAL HISTORY Procedure Laterality Date ANESTH,PACEMAKER INSERTION 10/07/2020 CATARACT EXTRACTION HX Bilateral 07/2016 COLONOSCOPY 06/1999 COLONOSCOPY FLX DX W/COLLJ SPEC WHEN PFRMD 01/29/2009 Diverticulosis COLONOSCOPY FLX DX W/COLLJ SPEC WHEN PFRMD 05/28/2013 CORONARY ENDARTERCOMY OPEN ANY METHOD 09/2012 [facility] [place], [place] EGD 06/1999 EGD TRANSORAL BIOPSY SINGLE/MULTIPLE 05/28/2013 HERNIA REPAIR HX 1994 x6 LEFT HEART CATH,PERCUTANEOUS 09/2012 Cardiac cath, L heart, [place] RPR 1ST INGUN HRNA AGE 5 YRS/> REDUCIBLE Hernia repair, inguinal, 6 total repairs RPR RECRT INGUINAL HERNIA ANY AGE REDUCIBLE Right 12/27/2016 SIGMOIDOSCOPY FLX DX W/COLLJ SPEC BR/WA IF PFRMD N/A 08/14/2016 Family History FAMILY HISTORY Problem Relation Age of Onset Cancer Mother Uterus Cancer Father Prostate Diabetes Father Diabetes Sister Diabetes Paternal Grandmother Diabetes Brother Patient Allergies ALLERGIES Allergen Reactions Atorvastatin Intolerance tired Dicloxacillin Diarrhea Penicillins Anaphylaxis Plavix [Clopidogrel* Intolerance hematochezia Red Yeast Rice Other: See Comments leg pain Current Medications Current Outpatient Medications on File Prior to Visit Medication Sig metFORMIN ER (GLUCOPHAGE XR) 500 mg 24 hr tablet Take 1 tablet by mouth twice daily before meals. blood sugar diagnostic (ONETOUCH ULTRA TEST) test strip 1 Strip once daily. Dx:E11.9 Insulin: No Blood-Glucose Meter (ONETOUCH ULTRA2) monitoring kit 1 Each as needed. One Touch Meter Kit Diagnosis: Type 2 DM - Controlled E11.9 OTC PRODUCT 2 capsules twice daily. Ros Rich Dietary Supplement OTC PRODUCT 0.5 scoops twice daily. Reverse Age OTC PRODUCT 0.5 scoops twice daily. Cardio Sentials OTC PRODUCT drinking ginseng tea 2-3 cups daily bicalutamide (CASODEX) 50 mg tablet Take 50 mg by mouth once daily. (Patient not taking: Reported on 10/18/2021 ) tamsulosin (FLOMAX) 0.4 mg Take 0.4 mg by mouth twice daily. (Patient not taking: Reported on 10/18/2021 ) OTC PRODUCT GO BERTRAND GO - fruit and vegetable mix daily. (Patient not taking: Reported on 10/18/2021 ) CALCIUM CARBONATE/VITAMIN D3 (CALCIUM 600 + D ORAL) Take by mouth. (Patient not taking: Reported on10/18/2021 ) triamcinolone acetonide (KENALOG) 0.1 % cream Apply 1 application to affected area three times daily. Apply sparingly to area for rash/itching. (Patient not taking: Reported on 10/18/2021 ) Aspirin 81 mg Tab Takes BID (Patient not taking: Reported on 2020 ) No current facility-administered medications on file prior to visit. Social History Social History Tobacco Use Smoking status: Former Smoker Types: Cigarettes, Pipe, Cigars Quit date: 07/16/1977 Years since quittin.2 Smokeless tobacco: Former User Types: Chew Substance Use Topics Alcohol use: No Drug use: No Review of Symptoms REVIEW OF SYSTEMS GENERAL: No weight loss, malaise or fevers RESPIRATORY: Negative for cough, hemoptysis, wheezing, COPD, dyspnea or shortness of breath CARDIOVASCULAR: Negative for chest pain, leg swelling, hypertension, CHF or palpitations GI: No nausea, vomiting, or diarrhea SKIN: Negative for lesions, rash, and itching EXAM: BP 104/64 Pulse 63 Resp 16 Wt 75.1 kg (165 lb 9.6 oz) SpO2 97% BMI 28.43 kg/m General Appearance: Well appearing, alert, in no acute distress, well-hydrated, well nourished.. Skin: Skin color, texture, turgor normal, no suspicious rashes or lesions. Lungs: Lungs clear to auscultation. No wheezing, rhonchi, rales.. Heart: RRR without murmur, gallop, or rubs. No ectopy. Abdomen: Normal abdominal exam, Abdomen soft, non-tender. Bowel sounds normal. No masses, organomegaly. Extremities: No deformities, edema, skin discoloration, clubbing or cyanosis. Good capillary refill. . Feet: Shoes and socks removed, No deformities, ulcers, calluses, normal distal pulses and sensitiveto 10 gm monofilament Health Maintenance List SHINGRIX VACCINE(1 of 2) Never done ADVANCE DIRECTIVE DISCUSSION Never done DIABETIC FOOT EXAM due on 2021 INFLUENZA(Season Ended) due on 03/16/2022 HBA1C due on 04/15/2022 URINE ALBUMIN:CREATININE RATIO due on 04/19/2022 DILATED RETINAL EXAM due on 06/08/2022 LDL CHOLESTEROL due on 10/14/2022 DTAP,TDAP,TD(2 - Td or Tdap) due on 03/13/2028 PNEUMOVAX AGE 65 AND OVER WITH 5YR LOOKBACK Completed COVID-19 VACCINE Completed MENINGOCOCCAL CONJUGATE Aged Out Data reviewed Component Latest Ref Rng & Units 06/08/2021 10/14/2021 WBC 3.70 - 11.00 k/uL 2.74 (L) RBC 4.20 - 6.00 m/uL 3.76 (L) Hemoglobin 13.0 - 17.0 g/dL 13.1 Hematocrit 39.0 - 51.0 % 38.5 (L) MCV 80.0 - 100.0 fL 102.4 (H) MCH 26.0 - 34.0 pG 34.8 (H) MCHC 30.5 - 36.0 g/dL 34.0 RDW-CV 11.5 - 15.0 % 12.0 Platelet Count 150 - 400 k/uL 198 MPV 9.0 - 12.7 fL 9.5 Neut% % 54.0 Abs Neut (ANC) 1.45 - 7.50 k/uL 1.47 Lymph% % 32.5 Abs Lymph 1.00 - 4.00 k/uL 0.89 (L) [place]% % 9.5 Abs [place] <0.87 k/uL 0.26 Eosin% % 3.3 Abs Eosin <0.46 k/uL 0.09 Baso% % 0.7 Abs Baso <0.11 k/uL <0.03 Nucleated Reds 0 /100 WBC 0.0 Absolute nRBC <0.01 k/uL <0.01 Diff Type Auto Diff Cholesterol, Total <200 mg/dL 233 (H) Triglyceride <150 mg/dL 194 (H) HDL Cholesterol >39 mg/dL 49 Non HDL Cholesterol <130 mg/dL 184 (H) Fasting Time hrs 12 VLDL Cholesterol <30 mg/dL 39 (H) TC:HDL Ratio <5.10 4.76 LDL Cholesterol <100 mg/dL 145 (H) LDL:HDL Ratio <2.54 2.96 (H) Iron 41 - 186 ug/dL 124 TIBC 232 - 386 ug/dL 306 Transferrin Saturation 15 - 57 % 41 Hemoglobin A1C 4.3 - 5.6 % 7.0 (H) Estimated Average Glucose mg/dL 154 Ferritin 30.3 - 565.7 ng/mL 180.0 Vitamin B12 232 - 1,245 pg/mL 513 Folate >4.7 ng/mL >20.0 ASSESSMENT/PLAN: 1. Controlled type 2 diabetes mellitus without complication, without long-term current use of insulin (HCC) - ICD9: 250.00, ICD10: E11.9 (primary diagnosis) Controlled. - Continue current medications - Blood glucose monitoring on a once a day schedule - Encouraged regular aerobic exercise and weight loss - Daily Asprin therapy recommended - Follow up in 6 months, sooner should any other issues arise. - Discussed diabetic education issues of retirement diabetic complications, hypoglycemic symptoms, hyperglycemic symptoms, diet, medications- side effects and need for compliance, importance of exercise and importance of annual examinations with Opthalmology with patient. 2. Prostate cancer (HCC) - ICD9: 185, ICD10: C61 No mets on recent scans. Continue Hormone therapy and follow up with urology. 3. ASHD (arteriosclerotic heart disease) - ICD9: 414.00, ICD10: I25.10 Asymptomatic on current regimen. F/u with cardiology as scheduled. 4. SSS (sick sinus syndrome) ([facility]) - ICD9: 427.81, ICD10: I49.5 asymptomatic with pacemaker placement. 5. Pacemaker - ICD9: V45.01, ICD10: Z95.0 6. Primary hypertension - ICD9: 401.9, ICD10: I10 - good control - Continue current medication(s) - Encouraged dietary sodium restriction/DASH diet - Recommended regular aerobic exercise. - Reviewed risks of HTN and principles of treatment - Goal of BP <140/90 7. Mixed hyperlipidemia - ICD9: 272.2, ICD10: E78.2 - poor control - Encouraged following a low fat, low cholesterol diet. - Discussed the benefits of regular aerobic exercise and weight loss. Refusing statin. Marisol Ribeiro MD documented in this encounterK[facility] Evaluation note* Diagnosis Onset Date Resolution Status Atherosclerosis of coronary artery without angina pectoris chronic Cardiac pacemaker in situ October 06, 2020 chronic Sick sinus syndrome acute Cardiac pacemaker in situ October 06, 2020 [facility] Work Phone: 1(168) 264-182803-24-2021 Evaluation note* Diagnosis Onset Date Resolution Status Sick sinus syndrome acute Cardiac pacemaker in situ October 06, 2020 chronic Sick sinus syndrome acute Cardiac pacemaker in situ October 06, 2020 [facility] Work Phone: 1(525) 487-783809-26-2017 History of Past illness Narrative* Problem Noted Date Resolved Date Hyperlipidemia 04/10/2017 04/10/2017 Diabetes mellitus type 2, controlled, without co mplications 05/12/2015 04/10/2017 Medicare annual wellness visit, subsequent 05/1504/10/2017 SUMMARY 01/14/2011 03/02/2016 Overview: Mr. Kevin is a 70 yo man with PMHx sig for NIDDM, essential tremor; hx asymptomatic sinus pauses (up to 4.5 sec in duration) while asleep. 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 Kevin was last seen 1 year ago. Since our last visit he denies excessive thirst or increased frequency of urination, chest pain or dyspnea , numbness, tingling or pain in extremities, new or unusual visual symptoms and low sugar/hypoglycemic reactions. Follows a diabetic diet generally not very much. He is compliant with medication(s) and is tolerating med(s) without any side effects. He reports checking his glucose on a monthly schedule with sugars in the fasting 114, 118 range. Patient's last HgA1C was HBA1C [facility] (%) Date Value 05/09/2011 6.0 01/02/2011 6.0 Hemoglobin A1C (%) Date Value 04/08/2012 5.9 10/14/2004 6.4* ) Last Ophthalmology exam was a few years ago in [place], and he reported no problems. Will seek appointment with [facility] in the near future. Other and unspecified hyperlipidemia 04/10/2017 documented as of this encounter (statuses as of 10/22/2021) [facility] History of Past illness Narrative* Problem Noted Date Resolved Date Hyperlipidemia 04/10/2017 04/10/2017 Diabetes mellitus type 2, controlled, without co mplications 05/12/2015 04/10/2017 Medicare annual wellness visit, subsequent 05/1504/10/2017 SUMMARY 01/14/2011 03/02/2016 Overview: Mr. Kevin is a 70 yo man with PMHx sig for NIDDM, essential tremor; hx asymptomatic sinus pauses (up to 4.5 sec in duration) while asleep. 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 Kevin was last seen 1 year ago. Since our last visit he denies excessive thirst or increased frequency of urination, chest pain or dyspnea , numbness, tingling or pain in extremities, new or unusual visual symptoms and low sugar/hypoglycemic reactions. Follows a diabetic diet generally not very much. He is compliant with medication(s) and is tolerating med(s) without any side effects. He reports checking his glucose on a monthly schedule with sugars in the fasting 114, 118 range. Patient's last HgA1C was HBA1C, [facility] (%) Date Value 05/09/2011 6.0 01/02/2011 6.0 Hemoglobin A1C (%) Date Value 04/08/2012 5.9 10/14/2004 6.4* ) Last Ophthalmology exam was a few years ago in [place], and he reported no problems. Will seek appointment with [facility] in the near future. Other and unspecified hyperlipidemia 04/10/2017 documented as of this encounter (statuses as of 04/21/2022) [facility] History of Past illness Narrative* Problem Noted Date Resolved Date Hyperlipidemia 04/10/2017 04/10/2017 Diabetes mellitus type 2, controlled, without co mplications 05/12/2015 04/10/2017 Medicare annual wellness visit, subsequent 05/1504/10/2017 SUMMARY 01/14/2011 03/02/2016 Overview: Mr. Kevin is a 70 yo man with PMHx sig for NIDDM, essential tremor; hx asymptomatic sinus pauses (up to 4.5 sec in duration) while asleep. 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 Kevin was last seen 1 year ago. Since our last visit he denies excessive thirst or increased frequency of urination, chest pain or dyspnea , numbness, tingling or pain in extremities, new or unusual visual symptoms and low sugar/hypoglycemic reactions. Follows a diabetic diet generally not very much. He is compliant with medication(s) and is tolerating med(s) without any side effects. He reports checking his glucose on a monthly schedule with sugars in the fasting 114, 118 range. Patient's last HgA1C was HBA1C, [facility] (%) Date Value 05/09/2011 6.0 01/02/2011 6.0 Hemoglobin A1C (%) Date Value 04/08/2012 5.9 10/14/2004 6.4* ) Last Ophthalmology exam was a few years ago in [place], and he reported no problems. Will seek appointment with [facility] in the near future. Other and unspecified hyperlipidemia 04/10/2017 documented as of this encounter (statuses as of 07/28/2022) [facility] History of Past illness Narrative* Problem Noted Date Resolved Date Hyperlipidemia 04/10/2017 04/10/2017 Diabetes mellitus type 2, controlled, without co mplications 05/12/2015 04/10/2017 Medicare annual wellness visit, subsequent 05/1504/10/2017 SUMMARY 01/14/2011 03/02/2016 Overview: Mr. Kevin is a 70 yo man with PMHx sig for NIDDM, essential tremor; hx asymptomatic sinus pauses (up to 4.5 sec in duration) while asleep. 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 Kevin was last seen 1 year ago. Since our last visit he denies excessive thirst or increased frequency of urination, chest pain or dyspnea , numbness, tingling or pain in extremities, new or unusual visual symptoms and low sugar/hypoglycemic reactions. Follows a diabetic diet generally not very much. He is compliant with medication(s) and is tolerating med(s) without any side effects. He reports checking his glucose on a monthly schedule with sugars in the fasting 114, 118 range. Patient's last HgA1C was [facility] (%) Date Value 05/09/2011 6.0 01/02/2011 6.0 Hemoglobin A1C (%) Date Value 04/08/2012 5.9 10/14/2004 6.4* ) Last Ophthalmology exam was a few years ago in [place], and he reported no problems. Will seek appointment with [facility] in the near future. Other and unspecified hyperlipidemia 04/10/2017 documented as of this encounter (statuses as of 08/22/2022) [facility] History of Past illness Narrative* Problem Noted Date Resolved Date Hyperlipidemia 04/10/2017 04/10/2017 Diabetes mellitus type 2, controlled, without co mplications 05/12/2015 04/10/2017 Medicare annual wellness visit, subsequent 05/1504/10/2017 SUMMARY 01/14/2011 03/02/2016 Overview: Mr. Kevin is a 70 yo man with PMHx sig for NIDDM, essential tremor; hx asymptomatic sinus pauses (up to 4.5 sec in duration) while asleep. 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 Kevin was last seen 1 year ago. Since our last visit he denies excessive thirst or increased frequency of urination, chest pain or dyspnea , numbness, tingling or pain in extremities, new or unusual visual symptoms and low sugar/hypoglycemic reactions. Follows a diabetic diet generally not very much. He is compliant with medication(s) and is tolerating med(s) without any side effects. He reports checking his glucose on a monthly schedule with sugars in the fasting 114, 118 range. Patient's last HgA1C was HBA1CMychal (%) Date Value 05/09/2011 6.0 01/02/2011 6.0 Hemoglobin A1C (%) Date Value 04/08/2012 5.9 10/14/2004 6.4* ) Last Ophthalmology exam was a few years ago in [place], and he reported no problems. Will seek appointment with [facility] in the near future. Other and unspecified hyperlipidemia 04/10/2017 documented as of this encounter (statuses as of 08/23/2022) [facility] History of Past illness Narrative* Problem Noted Date Resolved Date Hyperlipidemia 04/10/2017 04/10/2017 Diabetes mellitus type 2, controlled, without co mplications 05/12/2015 04/10/2017 Medicare annual wellness visit, subsequent 05/1504/10/2017 SUMMARY 01/14/2011 03/02/2016 Overview: Mr. Kevin is a 70 yo man with PMHx sig for NIDDM, essential tremor; hx asymptomatic sinus pauses (up to 4.5 sec in duration) while asleep. 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 Kevin was last seen 1 year ago. Since our last visit he denies excessive thirst or increased frequency of urination, chest pain or dyspnea , numbness, tingling or pain in extremities, new or unusual visual symptoms and low sugar/hypoglycemic reactions. Follows a diabetic diet generally not very much. He is compliant with medication(s) and is tolerating med(s) without any side effects. He reports checking his glucose on a monthly schedule with sugars in the fasting 114, 118 range. Patient's last HgA1C was HBA1C, Mychal (%) Date Value 05/09/2011 6.0 01/02/2011 6.0 Hemoglobin A1C (%) Date Value 04/08/2012 5.9 10/14/2004 6.4* ) Last Ophthalmology exam was a few years ago in [place], and he reported no problems. Will seek appointment with [facility] in the near future. Other and unspecified hyperlipidemia 04/10/2017 documented as of this encounter (statuses as of 09/05/2022) [facility] History of Past illness Narrative* Problem Noted Date Resolved Date Hyperlipidemia 04/10/2017 04/10/2017 Diabetes mellitus type 2, controlled, without co mplications 05/12/2015 04/10/2017 Medicare annual wellness visit, subsequent 05/1504/10/2017 SUMMARY 01/14/2011 03/02/2016 Overview: Mr. Kevin is a 70 yo man with PMHx sig for NIDDM, essential tremor; hx asymptomatic sinus pauses (up to 4.5 sec in duration) while asleep. 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 Kevin was last seen 1 year ago. Since our last visit he denies excessive thirst or increased frequency of urination, chest pain or dyspnea , numbness, tingling or pain in extremities, new or unusual visual symptoms and low sugar/hypoglycemic reactions. Follows a diabetic diet generally not very much. He is compliant with medication(s) and is tolerating med(s) without any side effects. He reports checking his glucose on a monthly schedule with sugars in the fasting 114, 118 range. Patient's last HgA1C was [facility] [place] (%) Date Value 05/09/2011 6.0 01/02/2011 6.0 Hemoglobin A1C (%) Date Value 04/08/2012 5.9 10/14/2004 6.4* ) Last Ophthalmology exam was a few years ago in [place], and he reported no problems. Will seek appointment with [facility] in the near future. Other and unspecified hyperlipidemia 04/10/2017 documented as of this encounter (statuses as of 11/09/2022) [facility] History of Past illness Narrative* Problem Noted Date Resolved Date Hyperlipidemia 04/10/2017 04/10/2017 Diabetes mellitus type 2, controlled, without co mplications 05/12/2015 04/10/2017 Medicare annual wellness visit, subsequent 05/1504/10/2017 SUMMARY 01/14/2011 03/02/2016 Overview: Mr. Kevin is a 70 yo man with PMHx sig for NIDDM, essential tremor; hx asymptomatic sinus pauses (up to 4.5 sec in duration) while asleep. 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 Kevin was last seen 1 year ago. Since our last visit he denies excessive thirst or increased frequency of urination, chest pain or dyspnea , numbness, tingling or pain in extremities, new or unusual visual symptoms and low sugar/hypoglycemic reactions. Follows a diabetic diet generally not very much. He is compliant with medication(s) and is tolerating med(s) without any side effects. He reports checking his glucose on a monthly schedule with sugars in the fasting 114, 118 range. Patient's last HgA1C was PERCY [place] (%) Date Value 05/09/2011 6.0 01/02/2011 6.0 Hemoglobin A1C (%) Date Value 04/08/2012 5.9 10/14/2004 6.4* ) Last Ophthalmology exam was a few years ago in [place], and he reported no problems. Will seek appointment with [facility] in the near future. Other and unspecified hyperlipidemia 04/10/2017 documented as of this encounter (statuses as of 11/14/2022) [facility] History of Past illness Narrative* Problem Noted Date Resolved Date Hyperlipidemia 04/10/2017 04/10/2017 Diabetes mellitus type 2, controlled, without co mplications 05/12/2015 04/10/2017 Medicare annual wellness visit, subsequent 05/1504/10/2017 SUMMARY 01/14/2011 03/02/2016 Overview: Mr. Kevin is a 70 yo man with PMHx sig for NIDDM, essential tremor; hx asymptomatic sinus pauses (up to 4.5 sec in duration) while asleep. 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 Kevin was last seen 1 year ago. Since our last visit he denies excessive thirst or increased frequency of urination, chest pain or dyspnea , numbness, tingling or pain in extremities, new or unusual visual symptoms and low sugar/hypoglycemic reactions. Follows a diabetic diet generally not very much. He is compliant with medication(s) and is tolerating med(s) without any side effects. He reports checking his glucose on a monthly schedule with sugars in the fasting 114, 118 range. Patient's last HgA1C was HBA1C [place] (%) Date Value 05/09/2011 6.0 01/02/2011 6.0 Hemoglobin A1C (%) Date Value 04/08/2012 5.9 10/14/2004 6.4* ) Last Ophthalmology exam was a few years ago in [place], and he reported no problems. Will seek appointment with [facility] in the near future. Other and unspecified hyperlipidemia 04/10/2017 documented as of this encounter (statuses as of 11/20/2022) [facility] History of Past illness Narrative* Problem Noted Date Resolved Date Hyperlipidemia 04/10/2017 04/10/2017 Diabetes mellitus type 2, controlled, without co mplications 05/12/2015 04/10/2017 Medicare annual wellness visit, subsequent 05/1504/10/2017 SUMMARY 01/14/2011 03/02/2016 Overview: Mr. Kevin is a 70 yo man with PMHx sig for NIDDM, essential tremor; hx asymptomatic sinus pauses (up to 4.5 sec in duration) while asleep. 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 Kevin was last seen 1 year ago. Since our last visit he denies excessive thirst or increased frequency of urination, chest pain or dyspnea , numbness, tingling or pain in extremities, new or unusual visual symptoms and low sugar/hypoglycemic reactions. Follows a diabetic diet generally not very much. He is compliant with medication(s) and is tolerating med(s) without any side effects. He reports checking his glucose on a monthly schedule with sugars in the fasting 114, 118 range. Patient's last HgA1C was HBA1C, [place] (%) Date Value 05/09/2011 6.0 01/02/2011 6.0 Hemoglobin A1C (%) Date Value 04/08/2012 5.9 10/14/2004 6.4* ) Last Ophthalmology exam was a few years ago in [place], and he reported no problems. Will seek appointment with [facility] in the near future. Other and unspecified hyperlipidemia 04/10/2017 documented as of this encounter (statuses as of 12/14/2022) [facility]2017 History of Past illness Narrative* Problem Noted Date Diagnosed Date Resolved Date Hyperlipidemia 04/10/2017 04/10/2017 Diabetes mellitus type 2, co ntrolled, without complications 05/12/2015 04/10/2017 Medicare annual wellness visit, subsequent 05/15/2012 04/10/2017 SUMMARY 01/14/2011 03/02/2016 Overview: Mr. Kevin is a 70 yo man with PMHx sig for NIDDM, essential tremor; hx asymptomatic sinus pauses (up to 4.5 sec in duration) while asleep. 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 Kevin was last seen 1 year ago. Since our last visit he denies excessive thirst or increased frequency of urination, chest pain or dyspnea , numbness, tingling or pain in extremities, new or unusual visual symptoms and low sugar/hypoglycemic reactions. Follows a diabetic diet generally not very much. He is compliant with medication(s) and is tolerating med(s) without any side effects. He reports checking his glucose on a monthly schedule with sugars in the fasting 114, 118 range. Patient's last HgA1C was HBA1C [place] (%) Date Value 05/09/2011 6.0 01/02/2011 6.0 Hemoglobin A1C (%) Date Value 04/08/2012 5.9 10/14/2004 6.4* ) Last Ophthalmology exam was a few years ago in [place], and he reported no problems. Will seek appointment with [facility] in the near future. Other and unspecified hyperlipidemia 04/10/2017 documented as of this encounter (statuses as of 02/14/2023) [facility] History of Past illness Narrative* Problem Noted Date Diagnosed Date Resolved Date Hyperlipidemia 04/10/2017 04/10/2017 Diabetes mellitus type 2, co ntrolled, without complications 05/12/2015 04/10/2017 Medicare annual wellness visit, subsequent 05/15/2012 04/10/2017 SUMMARY 01/14/2011 03/02/2016 Overview: Mr. Kevin is a 70 yo man with PMHx sig for NIDDM, essential tremor; hx asymptomatic sinus pauses (up to 4.5 sec in duration) while asleep. 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 Kevin was last seen 1 year ago. Since our last visit he denies excessive thirst or increased frequency of urination, chest pain or dyspnea , numbness, tingling or pain in extremities, new or unusual visual symptoms and low sugar/hypoglycemic reactions. Follows a diabetic diet generally not very much. He is compliant with medication(s) and is tolerating med(s) without any side effects. He reports checking his glucose on a monthly schedule with sugars in the fasting 114, 118 range. Patient's last HgA1C was HBA1C [place] (%) Date Value 05/09/2011 6.0 01/02/2011 6.0 Hemoglobin A1C (%) Date Value 04/08/2012 5.9 10/14/2004 6.4* ) Last Ophthalmology exam was a few years ago in [place], and he reported no problems. Will seek appointment with [facility] in the near future. Other and unspecified hyperlipidemia 04/10/2017 documented as of this encounter (statuses as of 02/14/2023) [facility]2017 History of Past illness Narrative* Problem Noted Date Diagnosed Date Resolved Date Hyperlipidemia 04/10/2017 04/10/2017 Diabetes mellitus type 2, co ntrolled, without complications 05/12/2015 04/10/2017 Medicare annual wellness visit, subsequent 05/15/2012 04/10/2017 SUMMARY 01/14/2011 03/02/2016 Overview: Mr. Kevin is a 70 yo man with PMHx sig for NIDDM, essential tremor; hx asymptomatic sinus pauses (up to 4.5 sec in duration) while asleep. 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 Kevin was last seen 1 year ago. Since our last visit he denies excessive thirst or increased frequency of urination, chest pain or dyspnea , numbness, tingling or pain in extremities, new or unusual visual symptoms and low sugar/hypoglycemic reactions. Follows a diabetic diet generally not very much. He is compliant with medication(s) and is tolerating med(s) without any side effects. He reports checking his glucose on a monthly schedule with sugars in the fasting 114, 118 range. Patient's last HgA1C was HBA1CMychal (%) Date Value 05/09/2011 6.0 01/02/2011 6.0 Hemoglobin A1C (%) Date Value 04/08/2012 5.9 10/14/2004 6.4* ) Last Ophthalmology exam was a few years ago in [place], and he reported no problems. Will seek appointment with [facility] in the near future. Other and unspecified hyperlipidemia 04/10/2017 documented as of this encounter (statuses as of 02/21/2023) [facility]2017 History of Past illness Narrative* Problem Noted Date Diagnosed Date Resolved Date Hyperlipidemia 04/10/2017 04/10/2017 Diabetes mellitus type 2, co ntrolled, without complications 05/12/2015 04/10/2017 Medicare annual wellness visit, subsequent 05/15/2012 04/10/2017 SUMMARY 01/14/2011 03/02/2016 Overview: Mr. Kevin is a 70 yo man with PMHx sig for NIDDM, essential tremor; hx asymptomatic sinus pauses (up to 4.5 sec in duration) while asleep. 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 Kevin was last seen 1 year ago. Since our last visit he denies excessive thirst or increased frequency of urination, chest pain or dyspnea , numbness, tingling or pain in extremities, new or unusual visual symptoms and low sugar/hypoglycemic reactions. Follows a diabetic diet generally not very much. He is compliant with medication(s) and is tolerating med(s) without any side effects. He reports checking his glucose on a monthly schedule with sugars in the fasting 114, 118 range. Patient's last HgA1C was Mychal [facility] (%) Date Value 05/09/2011 6.0 01/02/2011 6.0 Hemoglobin A1C (%) Date Value 04/08/2012 5.9 10/14/2004 6.4* ) Last Ophthalmology exam was a few years ago in [place], and he reported no problems. Will seek appointment with [facility] in the near future. Other and unspecified hyperlipidemia 04/10/2017 documented as of this encounter (statuses as of 05/17/2023) [facility]2017 History of Past illness Narrative* Problem Noted Date Diagnosed Date Resolved Date Hyperlipidemia 04/10/2017 04/10/2017 Diabetes mellitus type 2, co ntrolled, without complications 05/12/2015 04/10/2017 Medicare annual wellness visit, subsequent 05/15/2012 04/10/2017 SUMMARY 01/14/2011 03/02/2016 Overview: Mr. Kevin is a 70 yo man with PMHx sig for NIDDM, essential tremor; hx asymptomatic sinus pauses (up to 4.5 sec in duration) while asleep. 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 Kevin was last seen 1 year ago. Since our last visit he denies excessive thirst or increased frequency of urination, chest pain or dyspnea , numbness, tingling or pain in extremities, new or unusual visual symptoms and low sugar/hypoglycemic reactions. Follows a diabetic diet generally not very much. He is compliant with medication(s) and is tolerating med(s) without any side effects. He reports checking his glucose on a monthly schedule with sugars in the fasting 114, 118 range. Patient's last HgA1C was [facility]CY [place] (%) Date Value 05/09/2011 6.0 01/02/2011 6.0 Hemoglobin A1C (%) Date Value 04/08/2012 5.9 10/14/2004 6.4* ) Last Ophthalmology exam was a few years ago in [place], and he reported no problems. Will seek appointment with [facility] in the near future. Other and unspecified hyperlipidemia 04/10/2017 documented as of this encounter (statuses as of 05/24/2023) [facility]2017 History of Past illness Narrative* Problem Noted Date Diagnosed Date Resolved Date Hyperlipidemia 04/10/2017 04/10/2017 Diabetes mellitus type 2, co ntrolled, without complications 05/12/2015 04/10/2017 Medicare annual wellness visit, subsequent 05/15/2012 04/10/2017 SUMMARY 01/14/2011 03/02/2016 Overview: Mr. Kevin is a 70 yo man with PMHx sig for NIDDM, essential tremor; hx asymptomatic sinus pauses (up to 4.5 sec in duration) while asleep. 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 Kevin was last seen 1 year ago. Since our last visit he denies excessive thirst or increased frequency of urination, chest pain or dyspnea , numbness, tingling or pain in extremities, new or unusual visual symptoms and low sugar/hypoglycemic reactions. Follows a diabetic diet generally not very much. He is compliant with medication(s) and is tolerating med(s) without any side effects. He reports checking his glucose on a monthly schedule with sugars in the fasting 114, 118 range. Patient's last HgA1C was HBA1C [place] (%) Date Value 05/09/2011 6.0 01/02/2011 6.0 Hemoglobin A1C (%) Date Value 04/08/2012 5.9 10/14/2004 6.4* ) Last Ophthalmology exam was a few years ago in [place], and he reported no problems. Will seek appointment with [facility] in the near future. Other and unspecified hyperlipidemia 04/10/2017 documented as of this encounter (statuses as of 10/16/2023) [facility]2017 History of Past illness Narrative* Problem Noted Date Diagnosed Date Resolved Date Hyperlipidemia 04/10/2017 04/10/2017 Diabetes mellitus type 2, co ntrolled, without complications 05/12/2015 04/10/2017 Medicare annual wellness visit, subsequent 05/15/2012 04/10/2017 SUMMARY 01/14/2011 03/02/2016 Overview: Mr. Kevin is a 70 yo man with PMHx sig for NIDDM, essential tremor; hx asymptomatic sinus pauses (up to 4.5 sec in duration) while asleep. 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 Kevin was last seen 1 year ago. Since our last visit he denies excessive thirst or increased frequency of urination, chest pain or dyspnea , numbness, tingling or pain in extremities, new or unusual visual symptoms and low sugar/hypoglycemic reactions. Follows a diabetic diet generally not very much. He is compliant with medication(s) and is tolerating med(s) without any side effects. He reports checking his glucose on a monthly schedule with sugars in the fasting 114, 118 range. Patient's last HgA1C was HBA1C, [place] (%) Date Value 05/09/2011 6.0 01/02/2011 6.0 Hemoglobin A1C (%) Date Value 04/08/2012 5.9 10/14/2004 6.4* ) Last Ophthalmology exam was a few years ago in [place], and he reported no problems. Will seek appointment with [facility] in the near future. Other and unspecified hyperlipidemia 04/10/2017 documented as of this encounter (statuses as of 10/25/2023) [facility] Diagnosis Controlled type 2 diabetes mellitus without complication, without long-term current use of insulin (HCC)- Primary Prostate cancer (HCC) Malignant neoplasm of prostate ASHD (arteriosclerotic heart disease) Coronary atherosclerosis of unspecified type of vessel, rampart or graft SSS (sick sinus syndrome) (HCC) Sinoatrial node dysfunction Pacemaker Cardiac pacemaker in situ Primary hypertension Unspecified essential hypertension Mixed hyperlipidemia [facility] Diagnosis Controlled type 2 diabetes mellitus without complication, without long-term current use of insulin (HCC)- Primary Itchy skin Unspecified pruritic disorder Encounter for immunization Need for other specified prophylactic vaccination against single bacterial disease Mixed hyperlipidemia ASHD (arteriosclerotic heart disease) Coronary atherosclerosis of unspecified type of vessel, rampart or graft Pacemaker Cardiac pacemaker in situ Prostate cancer (HCC) Malignant neoplasm of prostate [facility] Diagnosis Controlled type 2 diabetes mellitus without complication, without long-term current use of insulin (HCC)- Primary ASHD (arteriosclerotic heart disease) Coronary atherosclerosis of unspecified type of vessel, rampart or graft Pacemaker Cardiac pacemaker in situ Prostate cancer (HCC) Malignant neoplasm of prostate [facility] Diagnosis Controlled type 2 diabetes mellitus without complication, without long-term current use of insulin (HCC)- Primary Diabetes mellitus type 2 (HCC) [facility]* Diagnosis Left hip pain- Primary Pain in joint, pelvic region and thigh documented in this encounter [facility] note* Diagnosis Left hip pain Pain in joint, pelvic region and thigh documented in this encounter [facility] note* Diagnosis Controlled type 2 diabetes mellitus without complication, without long-term current use of insulin (HCC)- Primary Mixed hyperlipidemia SSS (sick sinus syndrome) (HCC) Sinoatrial node dysfunction ASHD (arteriosclerotic heart disease) Coronary atherosclerosis of unspecified type of vessel, rampart or graft Pacemaker Cardiac pacemaker in situ documented in this encounter [facility] note* Diagnosis Controlled type 2 diabetes mellitus without complication, without long-term current use of insulin ([facility])- Primary Prostate cancer (HCC) Malignant neoplasm of prostate Mixed hyperlipidemia ASHD (arteriosclerotic heart disease) Coronary atherosclerosis of unspecified type of vessel, rampart or graft Sick sinus syndrome (HCC) Sinoatrial node dysfunction Pacemaker Cardiac pacemaker in situ documented in this encounter [facility] note* Diagnosis Controlled type 2 diabetes mellitus without complication, without long-term current use of insulin ([facility])- Primary Encounter for immunization Need for other specified prophylactic vaccination against single bacterial disease ASHD (arteriosclerotic heart disease) Coronary atherosclerosis of unspecified type of vessel, rampart or graft Prostate cancer (HCC) Malignant neoplasm of prostate Pacemaker Cardiac pacemaker in situ Sick sinus syndrome (HCC) Sinoatrial node dysfunction Fall, initial encounter [facility] Diagnosis Controlled type 2 diabetes mellitus without complication, without long-term current use of insulin ([facility])- Primary Sick sinus syndrome (HCC) Sinoatrial node dysfunction Prostate cancer (HCC) Malignant neoplasm of prostate ASHD (arteriosclerotic heart disease) Coronary atherosclerosis of unspecified type of vessel, rampart or graft Pacemaker Cardiac pacemaker in situ Statin declined Mixed hyperlipidemia Depression screening Screening for depression documented in this encounter [facility] note* Diagnosis 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, not stated as uncontrolled Bradycardia Other specified cardiac dysrhythmias Sleep apnea Unspecified sleep apnea HYPERLIPIDEMIA NEC/NOS Other and unspecified hyperlipidemia Hypertension Unspecified essential hypertension Need for prophylactic vaccination and inoculation against influenza Acute CT anterior wall first episode care (HCC)- Primary Acute myocardial infarction of other anterior wall, initial episode of care Skin lesion of back Unspecified disorder of skin and subcutaneous tissue Bradycardia Other specified cardiac dysrhythmias SUMMARY DM w/o complication type I 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 of complication, not stated as uncontrolled Hospital discharge follow-up- Primary Other follow-up examination Controlled type 2 diabetes mellitus without complication, without long-term current use of insulin ([facility]) Encounter for immunization Need for other specified prophylactic vaccination against single bacterial disease Candidal intertrigo Candidiasis of skin and nails Weight loss Loss of weight documented in this encounter [facility] note* Diagnosis 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, not stated as uncontrolled Bradycardia Other specified cardiac dysrhythmias Sleep apnea Unspecified sleep apnea HYPERLIPIDEMIA NEC/NOS Other and unspecified hyperlipidemia Hypertension Unspecified essential hypertension Need for prophylactic vaccination and inoculation against influenza Acute CT anterior wall first episode care ([facility])- Primary Acute myocardial infarction of other anterior wall, initial episode of care Skin lesion of back Unspecified disorder of skin and subcutaneous tissue Bradycardia Other specified cardiac dysrhythmias SUMMARY DM w/o complication type I 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 of complication, not stated as uncontrolled Anemia, unspecified type- Primary documented in this encounter [facility] note* Diagnosis 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, not stated as uncontrolled Bradycardia Other specified cardiac dysrhythmias Sleep apnea Unspecified sleep apnea HYPERLIPIDEMIA NEC/NOS Other and unspecified hyperlipidemia Hypertension Unspecified essential hypertension Need for prophylactic vaccination and inoculation against influenza Acute CT anterior wall first episode care ([facility])- Primary Acute myocardial infarction of other anterior wall, initial episode of care Skin lesion of back Unspecified disorder of skin and subcutaneous tissue Bradycardia Other specified cardiac dysrhythmias SUMMARY DM w/o complication type I 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 of complication, not stated as uncontrolled Chronic bilateral low back pain with bilateral sciatica- Primary Primary hypertension Unspecified essential hypertension Anemia, unspecified type documented in this encounter [facility] noteNo assessment information availableAl[facility] Work Phone: [facility] note* Diagnosis 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, not stated as uncontrolled Bradycardia Other specified cardiac dysrhythmias Sleep apnea Unspecified sleep apnea HYPERLIPIDEMIA NEC/NOS Other and unspecified hyperlipidemia Hypertension Unspecified essential hypertension Need for prophylactic vaccination and inoculation against influenza Acute CT anterior wall first episode care (HCC)- Primary Acute myocardial infarction of other anterior wall, initial episode of care Skin lesion of back Unspecified disorder of skin and subcutaneous tissue Bradycardia Other specified cardiac dysrhythmias SUMMARY DM w/o complication type I 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 of complication, not stated as uncontrolled Controlled type 2 diabetes mellitus without complication, without long-term current use of insulin (HCC)- Primary Frequency of urination and polyuria Urinary frequency Onychomycosis Dermatophytosis of nail Primary hypertension Unspecified essential hypertension ASHD (arteriosclerotic heart disease) Coronary atherosclerosis of unspecified type of vessel, rampart or graft Sick sinus syndrome (HCC) Sinoatrial node dysfunction Pacemaker Cardiac pacemaker in situ Prostate cancer (HCC) Malignant neoplasm of prostate Diarrhea, unspecified type Chronic bilateral low back pain with bilateral sciatica documented in this encounter [facility] for referral (narrative)No reason for referral information availableBlindiana [facility] Work Phone: Advance Directives No Advanced Directives Records FoundDocuments on File Type Date Recorded 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 Advance Directive(s) Advance Directive(s) 08/14/2016 2:29 PM Advance Directive Response Recorded Date/ Time Advance Directives No May 6:42am Living Will No September 02, 023 11:49am Power of Dredge Engineer No September 02, 2022 11:49am Advance Directive Response Recorded Date/ Time Advance Directives No May 7:42am Living Will No September 02, 023 12:49pm Power of Dredge Engineer No September 02, 2022 12:49pm Advance Directive Response Recorded Date/ Time Advance Directives No May 7:42am Living Will No January 30, 2023 1:21pm Power of Dredge Engineer No January 30 1:21pm Advance Directive Response Recorded Date/ Time Advance Directives No May 7:42am Advance Directive Response Recorded Date/ Time Living Will No December 10, 2023 1 1:16am Do you have a Healthcare Power of Dredge Engineer? No December 10, 2023 11:16am Advance Directives No May 7:42am Chief Complaint and Reason for Visit Chief Complaint 6 M FU HEART DISEASE OF [place] CORONARY ARTERY HEART DISEASE OF [place] CORONARY ARTERY 3 mos remote PPM f/u weakness, left sided hip pain Reason for Visit Atherosclerosis of c oronary artery without angina pectoris Cardiac pacemaker in situ Sick sinus syndrome Cardiac pacemaker in situ Chief Complaint 3 mos remote PPM f/u weakness, left sided hip pain 3 mos remote PPM f/u Reason for Visit Sick sinus syndrome Cardiac pacemaker in situ Sick sinus syndrome Cardiac pacemaker in situ Chief Complaint 6 M FU 3 mos remote PPM f/u UPPER EXTREM Reason for Visit Atherosclerosis of c oronary artery without angina pectoris Cardiac pacemaker in situ Sick sinus syndrome Cardiac pacemaker in situ Chief Complaint Admit Date Pacer Check Remote October 16, 2024 4:36 am Pacer Check Remote January 14, 2025 9:12p m Chief Complaint Admit Date Pacer Check Remote January 14, 2025 9:12p m Annual in-clinic f/u February 24, 2025 1 :06pm Reason for Visit Admit Date NSVT (nonsustained ventricular tachycard ia) February 24, 2025 1:06pm Sick sinus syndrome February 24, 2025 1: 06pm Cardiac pacemaker in situ February 24, 2 025 1:06pm Chief Complaint Admit Date Pacer Check Remote January 14, 2025 9:12p m Pacer Check Remote February 24, 2025 9: 00am Annual in-clinic f/u February 24, 2025 1 :06pm Chief Complaint Admit Date Pacer Check Remote January 14, 2025 9:12p m Pacer Check Remote February 24, 2025 9: 00am Annual in-clinic f/u February 24, 2025 1 :06pm 1 Y FU April 09, 2025 1:35pm Reason for Visit Admit Date NSVT (nonsustained ventricular tachycard ia) February 24, 2025 1:06pm Sick sinus syndrome February 24, 2025 1: 06pm Cardiac pacemaker in situ February 24, 2 025 1:06pm Atherosclerosis of coronary artery without angina pectoris April 09, 2025 1:35pm Cardiac pacemaker in situ March 1:35pm Chief Complaint Admit Date Pacer Check Remote January 14, 2025 9:12p m Pacer Check Remote February 24, 2025 9: 00am Annual in-clinic f/u February 24, 2025 1 :06pm 1 Y FU April 09, 2025 1:35pm Pacer Check Remote April 15, 2025 8: 40pm Family History No Family History Records Found Relationship Condition Age at Onset Recorded Date/T chela Unknown Family History?Cancer Unknown October 06, 2020 6:03pm Family History?Cancer Unknown October 06, 2020 6:03pm Relationship Condition Age at Onset Recorded Date/T chela Unknown Family History?Cancer Unknown October 06, 2020 7:03pm Family History?Cancer Unknown October 06, 2020 7:03pm Reason for Referral Specialty Diagnoses / Procedures Referred By Contac t Referred To Contact [facility] Diagnoses Chronic bilateral low back pain with bilateral sciatica Procedures CONSULT TO PHYSICAL THERAPY PHYSICAL THERAPY EVALUATION HIGH COMPLEX 45 MINS Marisol Ribeiro MD [address] [place] [address] [facility] [address] [place] [address] Referral ID Status Reason Start Date Expiration Date Visits Requested Visits Authorized [id number] Pending Review Auto-Generat ed Referral 07/30/2024 07/30/2025 1 1 Summary Purpose Additional Source Comments Source Comments (unrecognize d section and content) In the event this informatio n is protected by the Federal Confidentiality of Alcohol and Drug Abuse Patient Records regulations: The Federal rules restrict any use of the information to criminally investigate or prosecute any alcohol or drug abuse patient.[facility] TroyIn the event this information is protected by the Federal Confidentiality of Alcohol and Drug Abuse Patient Records regulations: The Federal rules restrict any use of the information to criminally investigate or prosecute any alcohol or drug abuse patient.[facility] TroyIn the event this information is protected by the Federal Confidentiality of Alcohol and Drug Abuse Patient Records regulations: The Federal rules restrict any use of the information to criminally investigate or prosecute any alcohol or drug abuse patient.[facility] TroyIn the event this information is protected by the Federal Confidentiality of Alcohol and Drug Abuse Patient Records regulations: The Federal rules restrict any use of the information to criminally investigate or prosecute any alcohol or drug abuse patient.[facility] TroyIn the event this information is protected by the Federal Confidentiality of Alcohol and Drug Abuse Patient Records regulations: The Federal rules restrict any use of the information to criminally investigate or prosecute any alcohol or drug abuse patient.[facility] TroyIn the event this information is protected by the Federal Confidentiality of Alcohol and Drug Abuse Patient Records regulations: The Federal rules restrict any use of the information to criminally investigate or prosecute any alcohol or drug abuse patient.[facility] TroyIn the event this information is protected by the Federal Confidentiality of Alcohol and Drug Abuse Patient Records regulations: The Federal rules restrict any use of the information to criminally investigate or prosecute any alcohol or drug abuse patient.[facility] TroyIn the event this information is protected by the Federal Confidentiality of Alcohol and Drug Abuse Patient Records regulations: The Federal rules restrict any use of the information to criminally investigate or prosecute any alcohol or drug abuse patient.[facility] TroyIn the event this information is protected by the Federal Confidentiality of Alcohol and Drug Abuse Patient Records regulations: The Federal rules restrict any use of the information to criminally investigate or prosecute any alcohol or drug abuse patient.[facility] TroyIn the event this information is protected by the Federal Confidentiality of Alcohol and Drug Abuse Patient Records regulations: The Federal rules restrict any use of the information to criminally investigate or prosecute any alcohol or drug abuse patient.[facility] TroyIn the event this information is protected by the Federal Confidentiality of Alcohol and Drug Abuse Patient Records regulations: The Federal rules restrict any use of the information to criminally investigate or prosecute any alcohol or drug abuse patient.[facility] TroyIn the event this information is protected by the Federal Confidentiality of Alcohol and Drug Abuse Patient Records regulations: The Federal rules restrict any use of the information to criminally investigate or prosecute any alcohol or drug abuse patient.[facility] TroyIn the event this information is protected by the Federal Confidentiality of Alcohol and Drug Abuse Patient Records regulations: The Federal rules restrict any use of the information to criminally investigate or prosecute any alcohol or drug abuse patient.[facility] TroyIn the event this information is protected by the Federal Confidentiality of Alcohol and Drug Abuse Patient Records regulations: The Federal rules restrict any use of the information to criminally investigate or prosecute any alcohol or drug abuse patient.[facility] TroyIn the event this information is protected by the Federal Confidentiality of Alcohol and Drug Abuse Patient Records regulations: The Federal rules restrict any use of the information to criminally investigate or prosecute any alcohol or drug abuse patient.[facility] TroyIn the event this information is protected by the Federal Confidentiality of Alcohol and Drug Abuse Patient Records regulations: The Federal rules restrict any use of the information to criminally investigate or prosecute any alcohol or drug abuse patient.[facility] TroyIn the event this information is protected by the Federal Confidentiality of Alcohol and Drug Abuse Patient Records regulations: The Federal rules restrict any use of the information to criminally investigate or prosecute any alcohol or drug abuse patient.[facility] TroyIn the event this information is protected by the Federal Confidentiality of Alcohol and Drug Abuse Patient Records regulations: The Federal rules restrict any use of the information to criminally investigate or prosecute any alcohol or drug abuse patient.[facility] TroyIn the event this information is protected by the Federal Confidentiality of Alcohol and Drug Abuse Patient Records regulations: The Federal rules restrict any use of the information to criminally investigate or prosecute any alcohol or drug abuse patient.[facility] TroyIn the event this information is protected by the Federal Confidentiality of Alcohol and Drug Abuse Patient Records regulations: The Federal rules restrict any use of the information to criminally investigate or prosecute any alcohol or drug abuse patient.[facility] TroyIn the event this information is protected by the Federal Confidentiality of Alcohol and Drug Abuse Patient Records regulations: The Federal rules restrict any use of the information to criminally investigate or prosecute any alcohol or drug abuse patient.[facility] TroyIn the event this information is protected by the Federal Confidentiality of Alcohol and Drug Abuse Patient Records regulations: The Federal rules restrict any use of the information to criminally investigate or prosecute any alcohol or drug abuse patient.[facility] TroyIn the event this information is protected by the Federal Confidentiality of Alcohol and Drug Abuse Patient Records regulations: The Federal rules restrict any use of the information to criminally investigate or prosecute any alcohol or drug abuse patient.[facility] TroyIn the event this information is protected by the Federal Confidentiality of Alcohol and Drug Abuse Patient Records regulations: The Federal rules restrict any use of the information to criminally investigate or prosecute any alcohol or drug abuse patient.[facility] TroyIn the event this information is protected by the Federal Confidentiality of Alcohol and Drug Abuse Patient Records regulations: The Federal rules restrict any use of the information to criminally investigate or prosecute any alcohol or drug abuse patient.[facility] TroyIn the event this information is protected by the Federal Confidentiality of Alcohol and Drug Abuse Patient Records regulations: The Federal rules restrict any use of the information to criminally investigate or prosecute any alcohol or drug abuse patient.[facility] TroyIn the event this information is protected by the Federal Confidentiality of Alcohol and Drug Abuse Patient Records regulations: The Federal rules restrict any use of the information to criminally investigate or prosecute any alcohol or drug abuse patient.[facility] Reason for Visit (unrecogniz ed section and content) Reason Comments F/U 6 months Specialty Diagnoses / Procedures Referred By Oscar t Referred To Contact Family Practice / FAMILY MEDICINE Diagnoses 6 month f/up Procedures 4C EST Self Marisol Ribeiro MD [address] [place] [address] Referral ID Status Reason Start Date Expiration Date V isits Requested Visits Authorized [id number] Closed Patient Cleared INN/SMCP Payor Auth Obtained 10/18/2021 07/15/2022 1 1 Reason Comments 6 Month Exam Reason Comments Results Orders Reason Comments F/U 3 Month Reason Comments ER F/U [facility] 09/02/22 for left hip pain Reason Onset Date Comments Refill Request 11/08/2022 Reason Comments Results Reason Onset Date Comments Refill Request 12/14/2022 Reason Comments Follow Up Reason Comments Patient Update Reason Onset Date Comments Population Health Navigation Outreach 10/16/2023 [employer] care gaps Reason Onset Date Comments Refill Request 10/24/2023 Reason Comments ER F/U [facility] 03/04/24-[facility] d/c 06/21/24 Reason Comments Patient Update Patient Question Reason Comments Back Pain Reason Onset Date Comments Refill Request 08/26/2024 Reason Comments Patient Call Care Teams (unrecognized sec tion and content) Robotics Systems Engineer Relationship Specialty Start Date End Date Marisol Ribeiro MD [address] [place] [address] PCP - General Family Practice 07/12/16 Robotics Systems Engineer Relationship Specialty Start Date End Date Marisol Ribeiro MD [address] [place] [address] PCP - General Family Medicine 07/12/16 Robotics Systems Engineer Relationship Specialty Start Date End Date Marisol Ribeiro MD [address] [place] [address] PCP - General Family Medicine 07/12/16 Robotics Systems Engineer Relationship Specialty Start Date End Date Marisol Ribeiro MD [address] [place] [address] PCP - General Family Medicine 07/12/16 Robotics Systems Engineer Relationship Specialty Start Date End Date Marisol Ribeiro MD [address] [facility] [place] [address] PCP - General Family Medicine 07/12/16 Team Status: Active Member Role Status Dates No Primary Care Physician Family Provider Active Tegan Wing CHICLE GRINDER FEEDER, CHICLE GRINDER FEEDER-C Primary Care Provider Active Team Status: Inactive Member Role Status Dates Dr. Jude iRbeiro MD Primary Care Provider, Ref erring Provider Active Dr. Alcon Grajeda MD Attending Provider Active Team Status: Inactive Member Role Status Dates Dr. Jude Ribeiro MD Primary Care Provider, Ref erring Provider Active Jamee Lamar Active Dr. Alcon Grajeda MD Attending Provider Active Team Status: Active Member Role Status Dates Dr. Jude Ribeiro MD Primary Care Provider Anat Grajeda MD Attending Provider, Other Provide r Active Team Status: Inactive Member Role Status Dates Dr. Jude Ribeiro MD Primary Care Provider Acti ve Dr. Alcon Grajeda MD Attending Provider Active Team Status: Inactive Member Role Status Dates Dr. Tr Heck DO Emergency Provider Active Tegan Herreralogar CHICLE GRINDER FEEDER, CHICLE GRINDER FEEDER-C Primary Care Provider Active Robotics Systems Engineer Relationship Specialty Start Date End Date Marisol Ribeiro MD [address] [place] [address] PCP - General Family Medicine 07/12/16 Team Status: Inactive Member Role Status Dates Dr. Jude Ribeiro MD Referring Provider Active Jamee Lamar Attending Provider Active Tegan Wing CHICLE GRINDER FEEDER, CHICLE GRINDER FEEDER-C Primary Care Provider Active Team Status: Inactive Member Role Status Dates Dr. Tr Heck DO Attending Provider, Emergency Brooke franco Active Tegan Herreralogar CHICLE GRINDER FEEDER, CHICLE GRINDER FEEDER-C Primary Care Provider Active Team Status: Inactive Member Role Status Dates Tegan Herreralogar CHICLE GRINDER FEEDER, CHICLE GRINDER FEEDER-C Primary Care Provider Active Haylee Foley CHICLE GRINDER FEEDER-C Attending Provider, Referrin g Provider Active Robotics Systems Engineer Relationship Specialty Start Date End Date Marisol Ribeiro MD [address] [place] [address] PCP - General Family Medicine 07/12/16 Robotics Systems Engineer Relationship Specialty Start Date End Date Marisol Ribeiro MD [address] [place] [address] PCP - General Family Medicine 07/12/16 Robotics Systems Engineer Relationship Specialty Start Date End Date Marisol Ribeiro MD [address] [place] [address] PCP - General Family Medicine 07/12/16 Team Status: Inactive Member Role Status Dates Dr. Jude Ribeiro MD Referring Provider Active Yuridia Gómez CHICLE GRINDER FEEDER, CHICLE GRINDER FEEDER-C Attending Provider Active Tegan Wing CHICLE GRINDER FEEDER, CHICLE GRINDER FEEDER-C Primary Care Provider Active Team Status: Inactive Member Role Status Dates Tegan Patricioar CHICLE GRINDER FEEDER, CHICLE GRINDER FEEDER-C Primary Care Provider, Referri ng Provider Active Jamee Lamar Attending Provider Active Team Status: Inactive Member Role Status Dates Tegan Herreralogar CHICLE GRINDER FEEDER, CHICLE GRINDER FEEDER-C Primary Care Provider Active Dr. Valdez Lopez , DO Emergency Provider Active Robotics Systems Engineer Relationship Specialty Start Date End Date Marisol Ribeiro MD [address] [place] [address] PCP - General Family Medicine 07/12/16 Robotics Systems Engineer Relationship Specialty Start Date End Date Marisol Ribeiro MD [address] [place] [address] PCP - General Family Medicine 07/12/16 Robotics Systems Engineer Relationship Specialty Start Date End Date Marisol Ribeiro MD [address] [place] [address] PCP - General Family Medicine 07/12/16 Robotics Systems Engineer Relationship Specialty Start Date End Date Marisol Ribeiro MD [address] [place] [address] PCP - General Family Medicine 07/12/16 Robotics Systems Engineer Relationship Specialty Start Date End Date Marisol Ribeiro MD [address] [place] [address] PCP - General Family Medicine 07/12/16 Robotics Systems Engineer Relationship Specialty Start Date End Date Marisol Ribeiro MD [address] [place] [address] PCP - General Family Medicine 07/12/16 Robotics Systems Engineer Relationship Specialty Start Date End Date Marisol Ribeiro MD [address] [place] [address] PCP - General Family Medicine 07/12/16 Robotics Systems Engineer Relationship Specialty Start Date End Date Marisol Ribeiro MD [address] [place] [address] PCP - General Family Medicine 07/12/16 Robotics Systems Engineer Relationship Specialty Start Date End Date Marisol Ribeiro MD [address] [place] [address] PCP - General Family Medicine 07/12/16 Podlogar, Tegan, TACKING STITCH REMOVER.CONE PICKER [address] [place] [address] Candy Decorator Family Medicine 06/21/24 Robotics Systems Engineer Relationship Specialty Start Date End Date Marisol Ribeiro MD [address] [place] [address] PCP - General Family Medicine 07/12/16 Podlogar, Tegan, TACKING STITCH REMOVER.CONE PICKER [address] [place] [address] Candy Decorator Family Medicine 06/21/24 Robotics Systems Engineer Relationship Specialty Start Date End Date Marisol Ribeiro MD [address] [place] [address] PCP - General Family Medicine 07/12/16 Podlogar, Tegan, TACKING STITCH REMOVER.CONE PICKER [address] [place] [address] Candy Decorator Family Medicine 06/21/24 Robotics Systems Engineer Relationship Specialty Start Date End Date Marisol Ribeiro MD [address] [place] [address] PCP - General Family Medicine 07/12/16 Podlogar, Tegan, TACKING STITCH REMOVER.CONE PICKER [address], [place] [id number] Candy Decorator Family Medicine 06/21/24 Robotics Systems Engineer Relationship Specialty Start Date End Date Marisol Ribeiro MD [address], [place] [address] PCP - General Family Medicine 07/12/16 PodlogarTegan APRN.CONE PICKER [address], [place] [address] Candy Decorator Family Medicine 06/21/24 Team Status: Active Member Role/Relationship Status Dates No Primary Care Physician Family Provider Active Tegan Podlogar CHICLE GRINDER FEEDER, CHICLE GRINDER FEEDER-C Primary Care Provider Active Team Status: Inactive Member Role/Relationship Status Dates Tegan Podlogar CHICLE GRINDER FEEDER, CHICLE GRINDER FEEDER-C Primary Care Provider Active Start: October 16, 2024 End: October 16, 2024 Dr. Alcon Grajeda MD Attending Provider Active S tart: October 16, 2024 End: October 16, 2024 Team Status: Inactive Member Role/Relationship Status Dates Tegan Podlogangela CHICLE GRINDER FEEDER, CHICLE GRINDER FEEDER-C Primary Care Provider Active Start: January 14, 2025 End: January 14, 2025 Dr. Alcon Grajeda MD Attending Provider Active S tart: January 14, 2025 End: January 14, 2025 Robotics Systems Engineer Relationship Specialty Start Date End Date Marisol Ribeiro MD [address] [place], [place] [address] PCP - General Family Medicine 07/12/16 PodlogarTegan APRN.[facility] [address] [place], [place] [id number] Candy Decorator Family Medicine 06/21/24 Arianna Reis APRN.[employer] [address] [address] [place], [place] [phone] [facility] 12/25/24 Robotics Systems Engineer Relationship Specialty Start Date End Date Marisol Ribeiro MD [address] [place], [place] [address] PCP - General Family Medicine 07/12/16 Tegan Wing APRN.[employer] [address] [place], [place] [phone] [facility] 06/21/24 Arianna Ries APRN.[employer] [employer] [address] [place], [place] [phone] [facility] 12/25/24 Team Status: Active Member Role/Relationship Status Dates Tegan Podlogar CHICLE GRINDER FEEDER, CHICLE GRINDER FEEDER-C Primary Care Provider Active Team Status: Inactive Member Role/Relationship Status Dates Tegan Podlogar CHICLE GRINDER FEEDER, CHICLE GRINDER FEEDER-C Primary Care Provider Active Start: January 14, 2025 End: January 14, 2025 Dr. Alcon Grajeda MD Attending Provider Active S tart: January 14, 2025 End: January 14, 2025 Team Status: Inactive Member Role/Relationship Status Dates Tegan Podlogar CHICLE GRINDER FEEDER, CHICLE GRINDER FEEDER-C Primary Care Provider Active Start: February 24, 2025 End: February 24, 2025 Tegan Podlogar CHICLE GRINDER FEEDER, CHICLE GRINDER FEEDER-C Referring Provider Active Start: February 24, 2025 End: February 24, 2025 Jamee Lamar Attending Provider Active Start: A 2024 End: February 24, 2025 Team Status: Inactive Member Role/Relationship Status Dates Tegan Podlogar CHICLE GRINDER FEEDER, CHICLE GRINDER FEEDER-C Primary Care Provider Active Start: February 24, 2025 End: February 24, 2025 Dr. Alcon Grajeda MD Attending Provider Active S tart: February 24, 2025 End: February 24, 2025 Team Status: Inactive Member Role/Relationship Status Dates Tegan Podlogar CHICLE GRINDER FEEDER, CHICLE GRINDER FEEDER-C Primary Care Provider Active Start: February 24, 2025 End: February 24, 2025 Tegan Podlogar CHICLE GRINDER FEEDER, CHICLE GRINDER FEEDER-C Referring Provider Active Start: February 24, 2025 End: February 24, 2025 Jamee Lamar Attending Provider Active Start: A 2024 End: February 24, 2025 Team Status: Active Member Role/Relationship Status Dates Dr. Jude Ribeiro MD Primary care physician Act mahin Team Status: Inactive Member Role/Relationship Status Dates Tegan Podlogar CHICLE GRINDER FEEDER, CHICLE GRINDER FEEDER-C Primary care physician Active Start: January 14, 2025 End: January 14, 2025 Dr. Alcon Grajeda MD Attending physician Active Start: January 14, 2025 End: January 14, 2025 Team Status: Inactive Member Role/Relationship Status Dates Tegan Podlogar CHICLE GRINDER FEEDER, CHICLE GRINDER FEEDER-C Primary care physician Active Start: February 24, 2025 End: February 24, 2025 Dr. Alcon Grajeda MD Attending physician Active Start: February 24, 2025 End: February 24, 2025 Team Status: Inactive Member Role/Relationship Status Dates Tegan Podlogar CHICLE GRINDER FEEDER, CHICLE GRINDER FEEDER-C Primary care physician Active Start: February 24, 2025 End: February 24, 2025 Tegan Podlogar CHICLE GRINDER FEEDER, CHICLE GRINDER FEEDER-C Referring Provider Active Start: February 24, 2025 End: February 24, 2025 Dr. Alcon Grajeda MD Attending physician Active Start: February 24, 2025 End: February 24, 2025 Team Status: Inactive Member Role/Relationship Status Dates Tegan Podlogar CHICLE GRINDER FEEDER, CHICLE GRINDER FEEDER-C Referring Provider Active Start: April 09, 2025 End: April 09, 2025 Dr. Alcon Grajeda MD Attending physician Active Start: April 09, 2025 End: April 09, 2025 Dr. Jude Ribeiro MD Primary care physician Act mahin Start: April 09, 2025 End: April 09, 2025 Team Status: Inactive Member Role/Relationship Status Dates Dr. Jude Ribeiro MD Primary care physician Act mahin Start: April 15, 2025 End: April 15, 2025 Dr. Alcon Grajeda MD Attending physician Active Start: April 15, 2025 End: April 15, 2025 Goals (unrecognized section and content) Goals may be documented in a n alternate sectionGoals may be documented in an alternate sectionGoals may be documented in an alternate sectionGoals may be documented in an alternate sectionGoals may be documented in an alternate sectionGoals may be documented in an alternate sectionGoals may be documented in an alternate sectionGoals may be documented in an alternate section (unrecognized sect ion and content) No Status Records FoundNo Status Records FoundNo Status Records Found INFORMATION SOURCE (unrecogn ized section and content) DATE CREATED AUTHOR 04/23/[address] [facility] DATE CREATED AUTHOR AUTHOR'S AMADEO ATION 05/24/2025 [facility] DATE CREATED AUTHOR AUTHOR'S ORGANIZ ATION 05/28/2025 [facility] FOR RECORDS PERTAINING TO PATIENTS WHO ARE OR HAVE BEEN ENROLLED IN A CHEMICAL DEPENDENCY/SUBSTANCEABUSE PROGRAM, SOME INFORMATION MAY BE OMITTED. This clinical summary was aggregated from multiple sources. Caution should be exercised in using it in the provision of clinical care. This summary normalizes information from multiple sources, and as a consequence, information in this document may materially change the coding, format and clinical context of patient data. In addition, data may be omitted in some cases. CLINICAL DECISIONS SHOULD BE BASED ON THE PRIMARY CLINICAL RECORDS. [facility] [employer] [facility]. provides no warranty or guarantee of the accuracy or completeness of information in this document.
[2025-06-09 07:28] LABS: Hematocrit 29.3 % (40-54); Hemoglobin 10.5 g/dL (13.0-16.5); Mean Corp Hgb Conc 35.8 g/dL (32-36); Mean Corpuscular Volume 103.2 fL (80-94); Mean Platelet Vol. 9.1 fl (6.2-12.0); Platelet Count 317 K/mm3 (150-450); RBC Distribution Width CV 12.4 % (11.6-14.6); RBC Distribution Width SD 46.7 fl (35.1-43.9); Red Blood Count 2.84 M/mm3 (4.6-6.2); White Blood Count 3.6 K/mm3 (4.4-11.0)
[2025-06-09 08:34] LABS: Anion Gap 12 (5-15); BUN 18 mg/dL (4-19); BUN/Creat Ratio 23.1 RATIO (10-20); Calcium,Total 8.7 mg/dL (7.6-11.0); Carbon Dioxide 21.8 mmol/L (21.0-32.0); Chloride 106 mmol/L (98-108); Glucose 124 mg/dL (70-99); Potassium 4.0 mmol/L (3.3-5.1)
== END ==
LOC: OLS.SW 05:00
PROVIDERS: PCP Family Medicine; Visit Provider Internal Medicine
DX: C61 Malignant neoplasm of prostate (principal); S42.201D Unspecified fracture of upper end of right humerus, subsequent encounter for fracture with routine healing; Z91.81 History of falling
CPT/HCPCS: 36415; 80048; 85027

== ENCOUNTER → 2025-06-18 05:00 | Outpatient (REF) | payer MEDICARE, SELFPAY ==
--- OUTSIDE RECORDS SUMMARY | 2025-06-18 04:28 | XMS RPT_ITS | CCD ---
Author Organization [facility] CliniSywy Care Team Providers Care Ferry Hand Name Role Phone Marisol Ribeiro MD Primary Care Provider Dr. Jude Ribeiro Primary Care Provider Dr. Jude Ribeiro Referring Provider Dr. Alcon Grajeda Attending Provider Dr. Alcno Grajeda Other Provider Marisol Ribeiro MD Primary Care Provider Dr. Jude Ribeiro Primary Care Provider [phone] Dr. Jude Ribeiro Referring Provider Dr. Alcon Grajeda Attending Provider Jamee Lamar Attending Provider Unavailable Podlogar TESTER COMPRESSED GASES, TESTER COMPRESSED GASES-C Tegan Primary Care Provider [phone] Dr. Jude Ribeiro Referring Provider Rico LONGORIA, TESTER COMPRESSED GASES-C Yuridia Attending Provider Podlogar TESTER COMPRESSED GASES, TESTER COMPRESSED GASES-C Tegan Primary Care Provider [phone] Podlogar TESTER COMPRESSED GASES, TESTER COMPRESSED GASES-C Tegan Referring Provider Jamee Lamar Attending Provider Unavailable Marisol Ribeiro MD Primary Care Provider Podlogar RESIDENT PROGRAMS ASSISTANT.Tegan CARIAS Unavailable Podlogar TESTER COMPRESSED GASES-Tegan York Primary Care Provider Dr. Alcon Grajeda MD Attending Provider Smiley RESIDENT PROGRAMS ASSISTANT.Arianna CARIAS Unavailable Podlogar TESTER COMPRESSED GASES-Tegan [place] Primary Care Provider Nicci KRUEGER, Dr. Rondon Attending Provider Podlogar TESTER COMPRESSED GASES-C, Tegan Referring Provider Jamee Lamar Attending Provider Unavailable Podlogar TESTER COMPRESSED GASES-C, Tegan Primary Care Physician Nicci KRUEGER, Dr. Rondon Attending Physician Quintin KRUEGER, Dr. Roque Primary Care Physicia n Podlogar TESTER COMPRESSED GASES, Tegan Primary Care Unavailable Severiano Florian Attending Unavailable NicciAlcon Attending Unavailable Podlogar TESTER COMPRESSED GASES, Tegan Primary Care Unavailable NicciAlcon Attending Unavailable Podlogar TESTER COMPRESSED GASES, Tegan Primary Care Unavailable Podlogar TESTER COMPRESSED GASES, Tegan Referring Unavailable NicciAlcon rainey Attending Unavailable Podlogar TESTER COMPRESSED GASES, Tegan Primary Care Unavailable NicciAlcon Attending Unavailable Podlogar TESTER COMPRESSED GASES, Tegan Primary Care Unavailable Podlogar TESTER COMPRESSED GASES, Tegan Primary Care Unavailable Roof TESTER COMPRESSED GASES, Babita Aguilar Attending Unavailable Podlogar TESTER COMPRESSED GASES, Tegan Referring Unavailable Podlogar TESTER COMPRESSED GASES, Tegan Primary Care Unavailable Alcon Grajeda Attending Unavailable Jude Ribeiro Primary Care Unavailable Alcon Grajeda Attending Unavailable Alcon Grajeda Attending Unavailable Podlogar TESTER COMPRESSED GASES, Tegan Referring Unavailable Jude Ribeiro Primary Care [...] atorvastatin; Translations: [ATORVASTATIN] Drug Allergy 3 Intolerance [facility] (20 sources) clopidogrel; Translations: [CLOPIDOGREL BISULFATE] Drug Allergy 3 Intolerance [facility] (20 sources) Dicloxacillin; Translations: [DICLOXACILLIN] Drug Allergy 8 Diarrhea [facility] (3 sources) Penicillins; Translations: [PENICILLINS] Drug Allergy 1 Anaphylaxis [facility] (20 sources) red yeast rice; Translations: [RED YEAST RICE] Drug Allergy 1 Other: See Comments [facility] Comment on above: LEG PAIN (20 sources) Penicillins Drug Allergy 1 Anaphylaxis [facility] (8 sources) ceFAZolin Drug Allergy [address] [facility] (8 sources) Penicillins Allergy to substance [address] [facility] (2 sources) Penicillins Drug Allergy 1 Anaphylaxis [facility] (1 source) atorvastatin Drug Allergy [address] [facility] Repository (1 source) Minnie albicans allergenic extract Drug Allergy [address] [facility] (1 source) ceFAZolin Drug Allergy [address] [facility] (1 source) clopidogrel Drug Allergy [address] [facility] (1 source) Penicillins Drug allergy (disorder) [address] [facility] Repository Medications Current Medications Medication Drug Class(es) [...] mouth. docusate sodium 50 mg / sennosides, chcf 8.6 mg oral tablet (5 sources) Start: [...] Comment on above: Take 1 tablet by [facility] twice daily as needed (for [...] Comment on above: PPM Ventricular lead - Business Applications Specialist: [employer], Model # CapSureFix Novus MRI SureScan 5076-52 , Serial # [id number];PPM Atrial lead - Business Applications Specialist: [employer], Model # CapSureFix Novus MRI SureScan 5076-45 , Serial # [id number]; PPM Generator - Business Applications Specialist: [employer], Model # Radha XT DR MRI SureScan [id number] , Serial # [id number] Coronary atherosclerosis and other heart disease (20 sources) Coronary arteriosclerosis; Translations: [Atherosclerotic heart disease of [place] coronary artery without angina pectoris] Onset: 12-03-2012 [...] THERAPY NTon 05-27-2025 THERAPY NT HNO ID: [id number] Author: DELIA GONZALEZ PTA Service: Physical Therapy Author Type: Television Newscast Director Type: Therapy (PT/OT/Speech/Resp) Filed: 05/27/2025 11:07 Note Text: Attestation signed by Yumiko Salgado PT at 05/27/2025 1:47 PM I reviewed and agree with the documentation corresponding to this therapy visit. SIGNATURE: Yumiko Salgado, PT DATE: May 27, 2025 TIME: 1:47 PM Physical Therapy [facility] Facility Treatment Summary SERVICE DATE: 05/27/2025 SERVICE TIME: 953 to 1034 ROOM: [place] [address] PT 6 Clicks Score: 21 DISCHARGE RECOMMENDATIONS Home PT Recommended Discharge Disposition Comments: home vs [facility] pending patient's sons ability to [...] presents to rehab. Relevant Past Medical History: NC, bradycardia, CAD, DDD, diverticulosis of colon, inguinal [...] and laundry. 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 Poor historian. THERAPY DIAGNOSIS Reduced mobility-other, Unsteadiness on feet TREATMENT INTERVENTIONS Gait Training (69305), Therapeutic Exercise (91126) Timed Code Treatment (minutes): 41 Skilled Treatment [...] Byrd Yeyo (more content not included)... Normal [facility] NURSING PROGon 05-26-2025 NURSING PROG HNO ID: [id number] Author: SYDNEY RIVERA LPN Service: Nursing Author Type: Licensed Nurse Type: Nursing Progress Note Filed: 05/26/2025 18:29 Note Text: Son Melchor in to visit and reviewed medications. Patient had been receiving Metformin 500 mg 2 tabs twice daily, Magnesium 500 mg daily and Vitamin B12 1000 mg daily at home. LIP notified of home medications and dosing. Normal [facility] THERAPY NTon 05-26-2025 THERAPY NT HNO ID: [id number] Author: UYMIKO SALGADO, PT Service: Physical Therapy Author Type: Television Newscast Director Type: Therapy (PT/OT/Speech/Resp) Filed: 05/27/2025 13:48 Note Text: Attestation signed by Yumiko Salgado, PT at 05/27/2025 1:48 PM I reviewed and agree with the documentation corresponding to this therapy visit. SIGNATURE: Yumiko Salgado, PT DATE: May 27, 2025 TIME: 1:48 PM Physical Therapy [facility] Facility Treatment Summary SERVICE DATE: 05/26/2025 SERVICE TIME: 1435 to 1505 ROOM: [place] [address] PT 6 Clicks Score: 20 DISCHARGE RECOMMENDATIONS Home PT Recommended Discharge Disposition Comments: home vs [facility] pending patient's sons ability to [...] presents to rehab. Relevant Past Medical History: NC, bradycardia, CAD, DDD, diverticulosis of colon, inguinal [...] and laundry. Visits his brother at a long term in [place]- walks home at times. Poor historian. THERAPY DIAGNOSIS Reduced mobility-other, Unsteadiness on feet TREATMENT INTERVENTIONS Therapeutic Activity (77164), Gait Training (55905) Timed Code Treatment (minutes): 30 Skilled Treatment [...] MRN: [id number] (more content not included)... Normal [facility] THERAPY NT HNO ID: [id number] Author: AGATA BORRERO CCC-GRANT OFFICER Service: Speech/Swallow Author Type: Speech Language Pathologist Type: Therapy (PT/OT/Speech/Resp) Filed: 05/26/2025 15:55 Note Text: Summary: EVALUATION Speech Therapy Speech Evaluation SERVICE DATE: 05/26/2025 SERVICE TIME: 1517 to 1549 ROOM: [place] [address] IMPRESSION Functional communication without limitations in: Speech, Language, Voice, Fluency Communication deficits identified: Cognitive deficits Assessment Comments: ST indicated for interventions and ongoing assessment of cognitive-linguisitc deficits to maximize patient's functional independence at [facility]. RECOMMENDATIONS Diet Recommendations N/A Swallow Strategy Recommendations [...] HOSPITAL COURSE 84 y/o male admitted to [facility] for evaluation of altered mental status on [...] debility with goal to return home vs [facility]. Reason for Speech Therapy Consult: Confusion Relevant Past Medical History: NC, bradycardia, CAD, DDD, diverticulosis of colon, inguinal hernia, osteopenia, gastritis, prostate cancer, pacemaker, sick sinus syndrome, tinnitus, DMII HOME ENVIRONMENT / PRIOR FUNCTIONAL LEVEL Prior Functional Level: Required Assistance Patient Lives With: Self/Alone Assistance Required With: Shopping, Transportation Assistance Available: PRN (Son and Seliuowz-[id number]) Prior Swallowing Function/Diet Textures: Regular Consistency, Thin Liquids IDDSI Level 0 SUBJECTIVE Patient agreeable to evaluation. Pleasant and cooperative. THERAPY DIAGNOSIS Cognitive-Communication Deficits TREATMENT INTERVENTIONS Speech Language Danny (86071) Skilled Treatment Time (minutes): 32 TRAINING AND [...] Other (2-3x/ (more content not included)... Normal [facility] THERAPY NT HNO ID: [id number] Author: MARK SNOWDEN, PT, DPT Service: Physical Therapy Author Type: Physical Therapist Type: Therapy (PT/OT/Speech/Resp) Filed: 05/26/2025 09:29 Note Text: Physical Therapy [facility] Facility Treatment Summary SERVICE DATE: 05/26/2025 SERVICE TIME: 846 ROOM: [place] [address] PT 6 Clicks Score: 20 DISCHARGE RECOMMENDATIONS Home PT Recommended Discharge Disposition Comments: home vs [facility] pending patient's sons ability to [...] presents to rehab. Relevant Past Medical History: NC, bradycardia, CAD, DDD, diverticulosis of colon, inguinal [...] and laundry. 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 Poor historian. THERAPY DIAGNOSIS Reduced mobility-other, Unsteadiness on feet TREATMENT INTERVENTIONS Therapeutic Exercise (09806), Gait Training (93895) Timed Code Treatment (minutes): 39 Skilled Treatment [...] Dosing, Assessment (more content not included)... Normal [facility] THERAPY NT HNO ID: [id number] Author: LU PATTON OT/Stanley Service: Occupational Therapy Author Type: Occupational Therapist Type: Therapy (PT/OT/Speech/Resp) Filed: 05/26/2025 08:01 Note Text: Occupational Therapy [facility] Facility Treatment Summary SERVICE DATE: 05/26/2025 SERVICE TIME: 0705 to 0750 ROOM: [place] [address] OT 6 Clicks Score: 18 DISCHARGE RECOMMENDATIONS [...] presents to rehab. Relevant Past Medical History: NC, bradycardia, CAD, DDD, diverticulosis of colon, inguinal [...] and laundry. 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 Poor historian. Baseline Cognition: Oriented to self, Oriented to place COGNITION Follows Commands: 2-step Commands, With Repetition THERAPY DIAGNOSIS Decreased activities of daily living (ADL) TREATMENT INTERVENTIONS Self Nursing Home Management (05493) Timed Code Treatment (minutes): 45 Skilled Treatment [...] Cuing T (more content not included)... Normal [facility] NUTRITIONon 05-25-2025 NUTRITION HNO ID: [id number] Author: SUPRIYA SWANN RD Service: Nutrition Therapy [...] (148 lb 5.9 oz) Dosing Weight Type: Dyke body weight Estimated kilocalorie needs: Calorie Calculation [...] May 25, 2025 TIME: 9:17 AM Normal [facility] THERAPY NTon 05-25-2025 THERAPY NT HNO ID: [id number] Author: MARK SNOWDEN, PT, DPT Service: Physical Therapy Author Type: Physical Therapist Type: Therapy (PT/OT/Speech/Resp) Filed: 05/25/2025 15:18 Note Text: Physical Therapy [facility] Facility Evaluation Summary SERVICE DATE: 05/25/2025 SERVICE TIME: 1437 to 1503 ROOM: [place] [address] PT 6 Clicks Score: 20 DISCHARGE RECOMMENDATIONS [...] an 84 year old male admitted to [facility] s/p work up for altered mental [...] presents to rehab. Relevant Past Medical History: NC, bradycardia, CAD, DDD, diverticulosis of colon, inguinal [...] and laundry. Visits his brother at a long term in [place]- walks home at times. Poor historian. THERAPY DIAGNOSIS Reduced mobility-other, Unsteadiness on feet TREATMENT INTERVENTIONS Evaluation, Gait Training (76812) Timed Code Treatment (minutes): 8 Skilled Treatment [...] Mobility Tr (more content not included)... Normal [facility] THERAPY NT HNO ID: [id number] Author: LU PATTON OT/L Service: Occupational Therapy Author Type: Occupational Therapist Type: Therapy (PT/OT/Speech/Resp) Filed: 05/25/2025 08:03 Note Text: Occupational Therapy [facility] Facility Evaluation Summary SERVICE DATE: 05/25/2025 SERVICE TIME: 709 ROOM: [place] [address] OT 6 Clicks Score: 18 DISCHARGE RECOMMENDATIONS [...] ecent right proximal humerus fracture admitted to [facility] for evaluation of altered mental status on 05/21/2025. Workup unremarkable. Mental status improved and AANDO x3 on 05/24/2025. Had ED visit on 05/19/2025 following a fall and was noted to have right humerus fracture; seen by outpatient ortho who recommended NWB RUE with sling at all times. PT/OT rec SNF, thus patient was transitioned into inpatient swing on 05/24/2025. Relevant Past Medical History: NC, bradycardia, CAD, DDD, diverticulosis of colon, inguinal [...] not wear dentures- dental soft diet. 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 Poor historian Baseline Cognition: Oriented to self, Oriented to place COGNITION Follows Commands: 2-step Commands, With Repetition Cognitive Activities Performed: sequence ADL THERAPY DIAGNOSIS Decreased activities of daily living (ADL), Reduced mobility-other TREATMENT INTERVENTIONS Evaluation, Self Nursing Home Management (54994) Timed Code Treatment (minutes): 15 Skilled Treatment Time (minutes): 30 EXERCISE None performed this session TRAINING AND EDUCATION PROVIDED Activity Adaptation/Compensatory Strategies, Adaptive Equipment/DME THERAPEUTIC SKILLS USED Activity Dosing, Assessment of Tolerance Including Vitals Response to Ac (more content not included)... Normal [facility] Basic metabolic 2000 panelon 05-23-2025 Anion gap [Moles/Vol] 17 mmol/L High 8-15 [facility] Comment on above: Order Comment: Speci men Type: BLOOD SPECIMENOrdering Facility: [facility] Address: [address] [place] [address] Performed By: #### 2 4321-2 ####[facility] [place] LABCLIA [id number] [place] [address] [place] Calcium [Mass/Vol] 9.5 mg/dL Normal 8.5-10.2 [facility] Comment on above: Order Comment: Speci men Type: BLOOD SPECIMENOrdering Facility: [facility] Address: [address] [place] [address] Performed By: #### 2 4321-2 ####[facility] [place] LABCLIA [id number] [place] [address] [place] Chloride [Moles/Vol] 102 mmol/L Normal 98-107 [facility] Comment on above: Order Comment: Speci men Type: BLOOD SPECIMENOrdering Facility: [facility] Address: [address] [place] [address] Performed By: #### 2 4321-2 ####[facility] [place] LABCLIA [id number] [place] [address] [place] CO2 [Moles/Vol] 20 mmol/L Low 22-30 [facility] Comment on above: Order Comment: Speci men Type: BLOOD SPECIMENOrdering Facility: [facility] Address: [facility] [place] [id number] Performed By: #### 2 4321-2 ####[facility] LABCLIA [id number] [place] [address] [place] [facility] Creatinine [Mass/Vol] 0.68 mg/dL Low 0.73-1.22 [facility] Comment on above: Order Comment: Speci men Type: BLOOD SPECIMENOrdering Facility: [facility] Address: [address] [place] [address] Performed By: #### 2 4321-2 ####[facility] LABCLIA [id number] [place] [address] [facility] eGFRcr SerPlBld CKD-EPI 2020 91 mL/min/1.73m??? Normal >=60 [facility] Comment on above: Order Comment: Vera monterroso Type: BLOOD SPECIMENOrdering Facility: [facility] Address: [address] [place] [address] Result Comment: Cristy mated Glomerular Filtration Rate [...] actual GFR. Performed By: #### 2 4321-2 ####[facility] LABCLIA [id number] [place] [address] [place] Glucose [Mass/Vol] 204 mg/dL High 74-99 [facility] Comment on above: Order Comment: Speci men Type: BLOOD SPECIMENOrdering Facility: [facility] Address: [address] [place] [address] Result Comment: The [place] [employer] (ADA) provides guidance for cutoff [...] Standards of Medical Care in Diabetes 2016, [place] [employer]. Diabetes Care. 2016.39(Suppl 1). Performed By: #### 2 4321-2 ####[facility] [place] LABCLIA [id number] [place] [address] [place] [facility] Potassium [Moles/Vol] 4.0 mmol/L Normal 3.7-5.1 [facility] Comment on above: Order Comment: Vera monterroso Type: BLOOD SPECIMENOrdering Facility: [facility] Address: [address] [place] [address] Performed By: #### 2 4321-2 ####[facility] [place] LABCLIA [id number] [place] [address] [facility] Sodium [Moles/Vol] 139 mmol/L Normal 136-144 [facility] Comment on above: Order Comment: Vera monterroso Type: BLOOD SPECIMENOrdering Facility: [facility] Address: [address] [place] [address] Performed By: #### 2 4321-2 ####[facility] LABCLIA [id number] [place] [address] [place] [facility] Urea nitrogen [Mass/Vol] 10 mg/dL Normal 9-24 [facility] Comment on above: Order Comment: Vera monterroso Type: BLOOD SPECIMENOrdering Facility: [facility] Address: [address] [place] [address] Performed By: #### 2 4321-2 ####[facility] LABCLIA [id number] [place] [address] [facility] THERAPY NTon 05-23-2025 THERAPY NT HNO ID: [id number] Author: LU PATTON OT/Stanley Service: Occupational Therapy Author Type: Occupational Therapist Type: Therapy (PT/OT/Speech/Resp) Filed: 05/23/2025 09:31 Note Text: Occupational Therapy [facility] Facility Treatment Summary SERVICE DATE: 05/23/2025 SERVICE TIME: 857 ROOM: [place] [address] OT 6 Clicks Score: 15 DISCHARGE RECOMMENDATIONS [...] at all times due to humerus fracture, TOGIAK, DMII, IV L FA Right Upper Extremity [...] year old male presenting from home to [facility] ED/ OBS for weakness, mechanical fall 2 [...] for further workup. Relevant Past Medical History: NC, bradycardia, CAD, DDD, diverticulosis of colon, inguinal [...] not wear dentures- dental soft diet. 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 Poor historian Baseline Cognition: Oriented to self, Confused COGNITION Orientation Deficits: Confused, Not oriented to Time, Not oriented to Situation, Not oriented to Place Responsiveness: Alert Follows Commands: 1-step Commands Attention Deficits: Distractible Memory Deficits: Short Term, Recall of Recent Event (more content not included)... Normal [facility] Basic metabolic 2000 panelon 05-22-2025 Anion gap [Moles/Vol] 15 mmol/L Normal 8-15 [facility] Comment on above: Order Comment: Speci men Type: BLOOD SPECIMENOrdering Facility: [facility] Address: [address] [place] [address] Performed By: #### 2 4321-2 ####[facility] [place] LABCLIA [id number] [place] [address] [place] Calcium [Mass/Vol] 8.5 mg/dL Normal 8.5-10.2 [facility] Comment on above: Order Comment: Speci men Type: BLOOD SPECIMENOrdering Facility: [facility] Address: [address] [place] [address] Performed By: #### 2 4321-2 ####[facility] [place] LABCLIA [id number] [place] [address] [place] Chloride [Moles/Vol] 107 mmol/L Normal 98-107 [facility] Comment on above: Order Comment: Speci men Type: BLOOD SPECIMENOrdering Facility: [facility] Address: [address] [place] [address] Performed By: #### 2 4321-2 ####[facility] [place] LABCLIA [id number] [place] [address] [place] CO2 [Moles/Vol] 19 mmol/L Low 22-30 [facility] Comment on above: Order Comment: Speci men Type: BLOOD SPECIMENOrdering Facility: [facility] Address: [address] [place] [address] Performed By: #### 2 4321-2 ####[facility] [place] LABCLIA [id number] [place] [address] [place] Creatinine [Mass/Vol] 0.67 mg/dL Low 0.73-1.22 [facility] Comment on above: Order Comment: Speci men Type: BLOOD SPECIMENOrdering Facility: [facility] Address: [address] [place] [address] Performed By: #### 2 4321-2 ####[facility] [place] LABCLIA [id number] [place] [address] [place] eGFRcr SerPlBld CKD-EPI 2020 91 mL/min/1.73m??? Normal >=60 [facility] Comment on above: Order Comment: Vera monterroso Type: BLOOD SPECIMENOrdering Facility: [facility] Address: [address] [place] [address] Result Comment: Cristy mated Glomerular Filtration Rate [...] actual GFR. Performed By: #### 2 4321-2 ####[facility] LABCLIA [id number] [place] [address] [place] Glucose [Mass/Vol] 162 mg/dL High 74-99 [facility] Comment on above: Order Comment: Vera monterroso Type: BLOOD SPECIMENOrdering Facility: [facility] Address: [address] [place] [address] Result Comment: The [place] Diabetes [employer] (ADA) provides guidance for cutoff [...] Standards of Medical Care in Diabetes 2016, [place] [employer]. Diabetes Care. 2016.39(Suppl 1). Performed By: #### 2 4321-2 ####[facility] LABCLIA [id number] [place] [address] [place] Potassium [Moles/Vol] 3.4 mmol/L Low 3.7-5.1 [facility] Comment on above: Order Comment: Vera monterroso Type: BLOOD SPECIMENOrdering Facility: [facility] Address: [address] [place] [address] Performed By: #### 2 4321-2 ####[facility] [place] LABCLIA [id number] [place] [address] [place] [facility] Sodium [Moles/Vol] 141 mmol/L Normal 136-144 [facility] Comment on above: Order Comment: Vera loc Type: BLOOD SPECIMENOrdering Facility: [facility] Address: [address] [place] [address] Performed By: #### 2 4321-2 ####[facility] [place] LABCLIA [id number] [place] [address] [place] Urea nitrogen [Mass/Vol] 13 mg/dL Normal 9-24 [facility] Comment on above: Order Comment: Vera monterroso Type: BLOOD SPECIMENOrdering Facility: [facility] Address: [address] [place] [address] Performed By: #### 2 4321-2 ####[facility] [place] LABCLIA [id number] [place] [address] [facility] HISTORY PHYSICALon HISTORY PHYSICAL HNO ID: [id number] Author: ESTEFANI COBIAN PA-C Service: Hospital Medicine Author Type: Physician Well Logging Operator Mud Analysis Type: H&P Filed: 05/22/2025 11:21 Note Text: Attestation signed by Grabiel Leigh MD at 05/22/2025 4:24 PM [facility] STAFF PHYSICIAN NOTE OF PERSONAL INVOLVEMENT IN CARE I have reviewed the history and physical examination obtained and documented by the physician facilities assistant and discussed the case on as needed basis Principal Problem: Altered mental status, unspecified (POA: Yes) Active Problems: Sleep apnea (POA: Yes) Mixed hyperlipidemia (POA: Yes) Hypertension (POA: Yes) ASHD (arteriosclerotic heart disease) (POA: Yes) History of acute anterior wall NC (POA: Yes) BPH (benign prostatic hyperplasia) (POA: Yes) Controlled type 2 diabetes mellitus without complication, without long-term current use of insulin (HCC) (POA: Yes) Prostate cancer (HCC) (POA: Yes) Sick sinus syndrome (HCC) (POA: Yes) Closed fracture of proximal end of right humerus (POA: Yes) Resolved Problems: * No resolved hospital problems. * Grabiel Leigh MD, [facility] Staff,Dept of Hospital Medicine May 22, 2025 4:24 PM Pager:Click here to page [facility] OF [facility] MEDICINE HISTORY AND PHYSICAL EXAM SERVICE DATE: 05/22/2025 SERVICE TIME: 6:15 AM Primary Care Physician: Marisol Ribeiro MD NIGHT AND WEEKEND COVERAGE: [facility] Medicine Coverage [id number] Subjective CHIEF COMPLAINT: Weakness, AMS HPI: This is a 84-year-old male with a past medical history notable for DM2, hypertension, history of anterior wall NC, ASHD, sick sinus syndrome s/p pacemaker, prostate cancer, BPH, and recent right proximal humerus fracture who presents with altered mental status. The patient presented to [facility] evening 05/21/2025 by EMS who were called by the patient's son due to concerns for generalized weakness and mental status changes. The patient was recently seen at [facility] on 05/19/2205 after sustaining an injury [...] birthday and that he is currently at [facility] but unable to tell me the current year or President. He is agreeable to be seen by therapy and would be also be agreeable to continued therapy if needed. He really thinks that getting his right arm/shoulder pain under control will help him. He was discharged from the ED earlier in the week with a prescription for Mcrae [place] but hasn't been taking it. No fever, chills, GRAY, visual changes, URI symptoms, chest pain, palpitations, Shortness of Breath, cough, abdominal pain, N/V/D, urinary symptoms, skin changes, peripheral edema, paresthesia or focal weaknesses. [facility] Course: HDS, afebrile. COVID/FLU/RSV negative. Labs notable for Hgb 11.4, Hct 33.6, AG 20, BNP 1257, HS Troponins 43, 44, and 45. UA negative for infection. Urine Tox negative. ABG unremarkable. CXR negative. CT Brain and C-Spine negative for acute intracranial process or cervical spine injury. Received NS infusion in the ED. The patient was admitted to [facility] for further evaluation and management of weakness [...] anterior wa (more content not included)... Normal [facility] THERAPY NTon 05-22-2025 THERAPY NT HNO ID: [id number] Author: ABBY MOTLEY OTR/L Service: Occupational Therapy Author Type: Occupational Therapist Type: Therapy (PT/OT/Speech/Resp) Filed: 05/22/2025 14:47 Note Text: Occupational Therapy Evaluation Summary SERVICE DATE: 05/22/2025 SERVICE TIME: 1342 to 1415 ROOM: [place] [address] OT 6 Clicks Score: 15 DISCHARGE RECOMMENDATIONS [...] at all times due to humerus fracture, TOGIAK, DMII, IV L FA Right Upper Extremity Weight Bearing Status: NWB CURRENT HOSPITAL COURSE Patient is an 84 year old male presenting from home to [facility]/ OBS for weakness, mechanical fall 2 [...] for further workup. Relevant Past Medical History: NC, bradycardia, CAD, DDD, diverticulosis of colon, inguinal [...] not wear dentures- dental soft diet. 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 Poor historian Baseline Cognition: Oriented [...] and signs-other TREATMENT INTERVENTIONS Evaluation, Therapeutic Activity (15663) Timed Code Treatment (minutes): 18 Skilled Treatment [...] Assist Level (more content not included)... Normal [facility] THERAPY NT HNO ID: [id number] Author: YUMIKO SALGADO PT Service: Physical Therapy Author Type: Physical Therapist Type: Therapy (PT/OT/Speech/Resp) Filed: 05/22/2025 12:44 Note Text: Summary: PT OBS evaluation Physical Therapy Evaluation Summary SERVICE DATE: 05/22/2025 SERVICE TIME: 1051 to 1121 ROOM: [place] [address] PT 6 Clicks Score: 17 DISCHARGE RECOMMENDATIONS [...] year old male presenting from home to [facility]/ OBS for weakness, inability to care [...] at all times due to humerus fracture, TOGIAK, DMII, IV L FA Right Upper Extremity Weight Bearing Status: NWB CURRENT HOSPITAL COURSE Patient is an 84 year old male presenting from home to [facility]/ OBS for weakness, mechanical fall 2 [...] for further workup. Relevant Past Medical History: NC, bradycardia, CAD, DDD, diverticulosis of colon, inguinal [...] not wear dentures- dental soft diet. 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 SUBJECTIVE My arm is really sore. Agreeable to PT evaluation. THERAPY DIAGNOSIS Reduced mobility-other, Muscle Weakness (generalized), Difficulty walking-musculoskeletal TREATMENT INTERVENTIONS Evaluation, Gait Training (66604) Timed Code Treatment (minutes): 10 Skilled Treatment [...] Facilitation, Physi (more content not included)... Normal [facility] TOXICOLOGY SCREEN, ROUTINE U RINEon 05-22-2025 Amphetamines Confirm (U) [Mass/Vol] Negative Normal Negative [facility] Comment on above: Order Comment: Speci men Type: URINE SPECIMENOrdering Facility: [facility] Address: [address] [place] [address] Result Comment: Cuto ff threshold at 1000 ng/mL. Performed By: #### U TOX2 ####[facility] [place] LABCLIA [id number] [place] [id number] [place] BARBITURATES, URINE Negative Normal Negative [facility] Comment on above: Order Comment: Speci men Type: URINE SPECIMENOrdering Facility: [facility] Address: [address] [place] [address] Result Comment: Cuto ff threshold at 200 ng/mL. Performed By: #### U TOX2 ####[facility] [place] LABCLIA [id number] [place] [id number] [place] BENZODIAZEPINES, URINE Negative Normal Negative [facility] Comment on above: Order Comment: Speci men Type: URINE SPECIMENOrdering Facility: [facility] Address: [address] [place] [address] Result Comment: Cuto ff threshold at 200 ng/mL. Performed By: #### U TOX2 ####[facility] [place] LABCLIA [id number] [place] [address] [place] Cannabinoids Screen Ql (U) Negative Normal Negative [facility] Comment on above: Order Comment: Speci men Type: URINE SPECIMENOrdering Facility: [facility] Address: [address] [place] [address] Result Comment: Cuto ff threshold at 50 ng/mL. Performed By: #### U TOX2 ####[facility] [place] LABCLIA [id number] [place] [address] [facility] Cocaine Ql (U) Negative Normal Negative [facility] Comment on above: Order Comment: Speci men Type: URINE SPECIMENOrdering Facility: [facility] Address: [address] [place] [address] Result Comment: Cuto ff threshold at 300 ng/mL. Performed By: #### U TOX2 ####[facility] [place] LABCLIA [id number] [place] [address] [facility] [place] Ethanol (U) [Mass/Vol] <11 Normal <11 [facility] Comment on above: Order Comment: Speci men Type: URINE SPECIMENOrdering Facility: [facility] Address: [address] [place] [address] Performed By: #### U TOX2 ####[facility] [place] LABCLIA [id number] [place] [address] [place] fentaNYL Screen Ql (U) Negative Normal Negative [facility] Comment on above: Order Comment: Speci men Type: URINE SPECIMENOrdering Facility: [facility] Address: [address] [place] [address] Result Comment: Cuto ff threshold at 5 ng/mL. Performed By: #### U TOX2 ####[facility] [place] LABCLIA [id number] [place] [address] [place] Opiates Screen Ql (U) Negative Normal Negative [facility] Comment on above: Order Comment: Speci men Type: URINE SPECIMENOrdering Facility: [facility] Address: [address] [place] [address] Result Comment: Cuto ff threshold at 300 ng/mL. Performed By: #### U TOX2 ####[facility] LABCLIA [id number] [place] [address] [facility] oxyCODONE cutoff Screen (U) [Mass/Vol] Negative Normal Negative [facility] Comment on above: Order Comment: Speci men Type: URINE SPECIMENOrdering Facility: [facility] Address: [address] [place] [address] Result Comment: Cuto ff threshold at 100 ng/mL. Performed By: #### U TOX2 ####[facility] LABIA [id number] [address] Phencyclidine Ql (U) Negative Normal Negative [facility] Comment on above: Order Comment: Speci men Type: URINE SPECIMENOrdering Facility: [facility] Address: [address] [place] [address] Result Comment: Cuto ff threshold at 25 ng/mL. Performed By: #### U TOX2 ####[facility] LABCLIA [id number] [place] [id number] [facility] ALLIED HEALTHon 05-21-2025 ALLIED HEALTH HNO ID: [id number] Author: LORIN GALICIA RT(R) Service: Radiology Author Type: Route Delivery Service Driver Type: Allied Health Filed: 05/21/2025 19:54 Note [...] PATIENT PRESENTS WITH AN IMPLANTABLE OR ATTACHED MEDICAL RECORDS DIRECTOR: No RADIOLOGY DEPARTMENT: CT; Exam(s) Completed: Brain and Spine . Anesthesia: No PERIPHERAL IV DATA: Not applicable SIGNED BY: Lorin Galicia RT(R) May 21, 2025 7:53 PM Normal [facility] ARTERIAL BLOOD GASESon 05-21 Base deficit (BldA) [Moles/Vol] -1 mmol/L Normal -2-0 [facility] Comment on above: Order Comment: Speci men Type: ARTERIAL BLOOD SPECIMENOrdering Facility: [facility] Address: [address] [place] [address] Performed By: #### A LLBG ####[facility] [place] LABCLIA [id number] [address] [place] Body temperature 98.78 [degF] Normal [facility] Comment on above: Order Comment: Speci men Type: ARTERIAL BLOOD SPECIMENOrdering Facility: [facility] Address: [address] [place] [address] Performed By: #### A LLBG ####[facility] LABCLIA [id number] [place] [address] [place] Calcium.ionized (Bld) [Mass/Vol] 1.19 mmol/L Normal 1.08-1.30 [facility] Comment on above: Order Comment: Speci men Type: ARTERIAL BLOOD SPECIMENOrdering Facility: [facility] Address: [address] [place] [address] Performed By: #### A LLBG ####[facility] [place] LABCLIA [id number] [place] [address] [place] Calcium.ionized adjusted to pH 7.4 (BldA) [Moles/Vol] 1.21 mmol/L Normal 1.08-1.30 [facility] Comment on above: Order Comment: Speci men Type: ARTERIAL BLOOD SPECIMENOrdering Facility: [facility] Address: [address] [place] [address] Performed By: #### A LLBG ####[facility] [place] LABCLIA [id number] [place] [address] [place] Carboxyhemoglobin (BldA) [Mass fraction] 1.7 % Normal 0.0-2.0 [facility] Comment on above: Order Comment: Speci men Type: ARTERIAL BLOOD SPECIMENOrdering Facility: [facility] Address: [address] [place] [address] Result Comment: Carb oxyhemoglobin Reference Range for Smokers: 2.0-8.0% Performed By: #### A LLBG ####[facility] [place] LABCLIA [id number] [place] [address] [place] Chloride [Moles/Vol] 106 mmol/L High 97-105 [facility] Comment on above: Order Comment: Speci men Type: ARTERIAL BLOOD SPECIMENOrdering Facility: [facility] Address: [address] [place] [address] Performed By: #### A LLBG ####[facility] LABCLIA [id number] [place] [address] [facility] [place] CO2 (Bld) [Partial pressure] 35 mm Hg Low 36-46 [facility] Comment on above: Order Comment: Speci men Type: ARTERIAL BLOOD SPECIMENOrdering Facility: [facility] Address: [address] [place] [address] Performed By: #### A LLBG ####[facility] [place] LABCLIA [id number] [place] [address] [facility] [place] CO2 adjusted to patient's actual temperature (Bld) [Partial pressure] 35 mmHg Low 36-46 [facility] Comment on above: Order Comment: Speci men Type: ARTERIAL BLOOD SPECIMENOrdering Facility: [facility] Address: [address] [place] [address] Performed By: #### A LLBG ####[facility] [place] LABCLIA [id number] [place] [address] [place] Glucose [Mass/Vol] 192 mg/dL High 60-105 [facility] Comment on above: Order Comment: Speci men Type: ARTERIAL BLOOD SPECIMENOrdering Facility: [facility] Address: [address] [place] [address] Performed By: #### A LLBG ####[facility] [place] LABCLIA [id number] [facility] [place] [address] [place] HCO3 (Bld) [Moles/Vol] 23 mmol/L Normal 22-26 [facility] Comment on above: Order Comment: Speci men Type: ARTERIAL BLOOD SPECIMENOrdering Facility: [facility] Address: [address] [place] [address] Performed By: #### A LLBG ####[facility] [place] LABCLIA [id number] [place] [address] [facility] Hematocrit (Bld) [Volume fraction] 33.9 % Low 39.0-51.0 [facility] Comment on above: Order Comment: Speci men Type: ARTERIAL BLOOD SPECIMENOrdering Facility: [facility] Address: [address] [place] [address] Performed By: #### A LLBG ####[facility] [place] LABCLIA [id number] [place] [address] [place] [facility] Hemoglobin (Bld) [Mass/Vol] 11.1 g/dL Low 13.0-17.0 [facility] Comment on above: Order Comment: Speci men Type: ARTERIAL BLOOD SPECIMENOrdering Facility: [facility] Address: [address] [place] [address] Performed By: #### A LLBG ####[facility] [place] LABCLIA [id number] [facility] [place] [address] [place] Lactate [Moles/Vol] 0.8 mmol/L Normal 0.5-2.2 [facility] Comment on above: Order Comment: Speci men Type: ARTERIAL BLOOD SPECIMENOrdering Facility: [facility] Address: [address] [place] [address] Performed By: #### A LLBG ####[facility] [place] LABCLIA [id number] [facility] [place] [address] [place] Methemoglobin (Bld) [Mass fraction] % Normal 0.0-1.5 [facility] Comment on above: Order Comment: Speci men Type: ARTERIAL BLOOD SPECIMENOrdering Facility: [facility] Address: [address] [place] [address] Performed By: #### A LLBG ####[facility] [place] LABCLIA [id number] [place] [address] [facility] O2 THERAPY RA=Room Air Normal [facility] Comment on above: Order Comment: Speci men Type: ARTERIAL BLOOD SPECIMENOrdering Facility: [facility] Address: [address] [place] [address] Performed By: #### A LLBG ####[facility] [place] LABCLIA [id number] [place] [address] [facility] [place] Oxygen (Bld) [Partial pressure] 61 mm Hg Low 85-95 [facility] Comment on above: Order Comment: Speci men Type: ARTERIAL BLOOD SPECIMENOrdering Facility: [facility] Address: [address] [place] [address] Performed By: #### A LLBG ####[facility] [place] LABCLIA [id number] [place] [address] [facility] Oxygen adjusted to patient's actual temperature (Bld) [Partial pressure] Normal [facility] Comment on above: Order Comment: Speci men Type: ARTERIAL BLOOD SPECIMENOrdering Facility: [facility] Address: [address] [place] [address] Performed By: #### A LLBG ####[facility] [place] LABCLIA [id number] [place] [address] [place] Oxyhemoglobin (BldA) [Mass fraction] 89 % Low 95-98 [facility] Comment on above: Order Comment: Speci men Type: ARTERIAL BLOOD SPECIMENOrdering Facility: [facility] Address: [address] [place] [address] Performed By: #### A LLBG ####[facility] [place] LABCLIA [id number] [facility] [place] [address] [place] pH (Bld) 7.42 [pH] Normal 7.35-7.45 [facility] Comment on above: Order Comment: Speci men Type: ARTERIAL BLOOD SPECIMENOrdering Facility: [facility] Address: [address] [place] [address] Performed By: #### A LLBG ####[facility] [place] LABCLIA [id number] [place] [address] [place] pH adjusted to patient's actual temperature (Bld) 7.42 Normal 7.35-7.45 [facility] Comment on above: Order Comment: Speci men Type: ARTERIAL BLOOD SPECIMENOrdering Facility: [facility] Address: [address] [place] [address] Performed By: #### A LLBG ####[facility] [place] LABCLIA [id number] [place], [place] [address] [place] [address] [place] PO2 / FIO2 RATIO 290 mmHg Low >300 [facility] Comment on above: Order Comment: Speci men Type: ARTERIAL BLOOD SPECIMENOrdering Facility: [facility] Address: [address] [place] [address] Performed By: #### A LLBG ####[facility] [place] LABCLIA [id number] [place] [address] [place] Potassium [Moles/Vol] 3.6 mmol/L Normal 3.5-5.0 [facility] Comment on above: Order Comment: Speci men Type: ARTERIAL BLOOD SPECIMENOrdering Facility: [facility] Address: [address] [place] [address] Performed By: #### A LLBG ####[facility] [place] LABCLIA [id number] [place] [address] [place] Sodium [Moles/Vol] 139 mmol/L Normal 136-144 [facility] Comment on above: Order Comment: Speci men Type: ARTERIAL BLOOD SPECIMENOrdering Facility: [facility] Address: [address] [place] [address] Performed By: #### A LLBG ####[facility] [place] LABCLIA [id number] [place] [address] [place] CBC W Auto Differential pane l (Bld)on 05-21-2025 Basophils (Bld) [#/Vol] 10*3/uL Normal <0.11 [facility] Comment on above: Order Comment: Speci men Type: BLOOD SPECIMENOrdering Facility: [facility] Address: [address] [place] [address] Performed By: #### 5 7021-8 ####[facility] LABCLIA [id number] [address]#### [address]87-7 ####[facility] LABCLIA [id number] [address] [place] [facility] Basophils/100 WBC (Bld) 0.2 % Normal [facility] Comment on above: Order Comment: Speci men Type: BLOOD SPECIMENOrdering Facility: [facility] Address: [address] [place] [address] Performed By: #### 5 7021-8 ####[facility] [place] LABCLIA [id number] [address]#### [address]95[address]-7 ####[facility] LABCLIA [id number] [address] [place] [facility] Differential cell count method Nom (Bld) Auto Normal [facility] Comment on above: Order Comment: Speci men Type: BLOOD SPECIMENOrdering Facility: [facility] Address: [address] [place] [address] Performed By: #### 5 7021-8 ####[facility] [place] LABCLIA [id number] [address]#### [address]-3 ####[facility] LABCLIA [id number] [address] [place] Eosinophils (Bld) [#/Vol] 10*3/uL Normal <0.46 [facility] Comment on above: Order Comment: Speci men Type: BLOOD SPECIMENOrdering Facility: [facility] Address: [address] [place] [address] Performed By: #### 5 7021-8 ####[facility] [place] LABCLIA [id number] [place], [place] [address] [place] [address] [place]#### [id number] ####[facility] LABCLIA [id number] [address] [place] Eosinophils/100 WBC (Bld) 0.0 % Normal [facility] Comment on above: Order Comment: Speci men Type: BLOOD SPECIMENOrdering Facility: [facility] Address: [address] [place] [address] Performed By: #### 5 7021-8 ####[facility] LABCLIA [id number] [address]#### [address]-9 ####[facility] LABCLIA [id number] [address] [place] Erythrocyte distribution width (RBC) [Ratio] 12.1 % Normal 11.5-15.0 [facility] Comment on above: Order Comment: Speci men Type: BLOOD SPECIMENOrdering Facility: [facility] Address: [address] [place] [address] Performed By: #### 5 7021-8 ####[facility] [place] LABCLIA [id number] [address] [place]#### [address]-4 ####[facility] LABCLIA [id number] [address] [place] Hematocrit (Bld) [Volume fraction] 33.6 % Low 39.0-51.0 [facility] Comment on above: Order Comment: Speci men Type: BLOOD SPECIMENOrdering Facility: [facility] Address: [address] [place] [address] Performed By: #### 5 7021-8 ####[facility] [place] LABCLIA [id number] [place], [place] [address] [place] [address]#### 73183-5 ####[facility] LABCLIA [id number] [address] [place] Hemoglobin (Bld) [Mass/Vol] 11.4 g/dL Low 13.0-17.0 [facility] Comment on above: Order Comment: Speci men Type: BLOOD SPECIMENOrdering Facility: [facility] Address: [address] [place] [address] Performed By: #### 5 7021-8 ####[facility] LABCLIA [id number] [address]#### [address]3464-2 ####[facility] LABCLIA [id number] [address] Immature granulocytes (Bld) [#/Vol] 0.03 10*3/uL Normal <0.10 [facility] Comment on above: Order Comment: Speci men Type: BLOOD SPECIMENOrdering Facility: [facility] Address: [address] [place] [address] Performed By: #### 5 7021-8 ####[facility] LABCLIA [id number] [address]#### 56395-0 ####[facility] LABCLIA [id number] [address] Immature granulocytes/100 WBC (Bld) 0.5 % Normal [facility] Comment on above: Order Comment: Speci men Type: BLOOD SPECIMENOrdering Facility: [facility] Address: [address] [place] [address] Performed By: #### 5 7021-8 ####[facility] [place] LABCLIA [id number] [address] [place]#### 16758-0 ####[facility] LABCLIA [id number] [place] [address] [place] Lymphocytes (Bld) [#/Vol] 0.62 10*3/uL Low 1.00-4.00 [facility] Comment on above: Order Comment: Speci men Type: BLOOD SPECIMENOrdering Facility: [facility] Address: [address] [place] [address] Performed By: #### 5 7021-8 ####[facility] [place] LABCLIA [id number] [address]#### 77211-9 ####[facility] LABCLIA [id number] [address] [place] Lymphocytes/100 WBC (Bld) 9.7 % Normal [facility] Comment on above: Order Comment: Speci men Type: BLOOD SPECIMENOrdering Facility: [facility] Address: [address] [place] [address] Performed By: #### 5 7021-8 ####[facility] LABCLIA [id number] [address] [place]#### [address]5110-1 ####[facility] LABCLIA [id number] [place] [address] [place] MCH (RBC) [Entitic mass] 35.5 pg High 26.0-34.0 [facility] Comment on above: Order Comment: Speci men Type: BLOOD SPECIMENOrdering Facility: [facility] Address: [address] [place] [address] Performed By: #### 5 7021-8 ####[facility] [place] LABCLIA [id number] [address]#### 46031-3 ####[facility] LABCLIA [id number] [address] [place] MCHC (RBC) [Mass/Vol] 33.9 g/dL Normal 30.5-36.0 [facility] Comment on above: Order Comment: Speci men Type: BLOOD SPECIMENOrdering Facility: [facility] Address: [address] [place] [address] Performed By: #### 5 7021-8 ####[facility] LABCLIA [id number] [address]#### 66521-8 ####[facility] LABCLIA [id number] [address] [place] MCV (RBC) [Entitic vol] 104.7 fL High 80.0-100.0 [facility] Comment on above: Order Comment: Speci men Type: BLOOD SPECIMENOrdering Facility: [facility] Address: [address] [place] [address] Performed By: #### 5 7021-8 ####[facility] LABCLIA [id number] [address]#### 11776-2 ####[facility] LABCLIA [id number] [address] [place] Monocytes (Bld) [#/Vol] 0.54 10*3/uL Normal <0.87 [facility] Comment on above: Order Comment: Speci men Type: BLOOD SPECIMENOrdering Facility: [facility] Address: [address] [place] [address] Performed By: #### 5 7021-8 ####[facility] [place] LABCLIA [id number] [address]#### 69310-4 ####[facility] LABCLIA [id number] [address] [place] Monocytes/100 WBC (Bld) 8.4 % Normal [facility] Comment on above: Order Comment: Speci men Type: BLOOD SPECIMENOrdering Facility: [facility] Address: [address] [place] [address] Performed By: #### 5 7021-8 ####[facility] [place] LABCLIA [id number] [facility] [place] [address] [place]#### 60993-5 ####[facility] LABCLIA [id number] [place] [address] [place] Neutrophils (Bld) [#/Vol] 5.22 10*3/uL Normal 1.45-7.50 [facility] Comment on above: Order Comment: Speci men Type: BLOOD SPECIMENOrdering Facility: [facility] Address: [address] [place] [address] Performed By: #### 5 7021-8 ####[facility] LABCLIA [id number] [place] [address] [place]#### 11238-9 ####[facility] LABCLIA [id number] [place] [id number] [place] Neutrophils/100 WBC (Bld) 81.2 % Normal [facility] Comment on above: Order Comment: Speci men Type: BLOOD SPECIMENOrdering Facility: [facility] Address: [address] [place] [address] Performed By: #### 5 7021-8 ####[facility] LABCLIA [id number] [place] [address] [place]#### 92269-7 ####[facility] LABCLIA [id number] [place] [address] [place] Nucleated RBC (Bld) [#/Vol] Normal [facility] Comment on above: Order Comment: Speci men Type: BLOOD SPECIMENOrdering Facility: [facility] Address: [address] [place] [address] Performed By: #### 5 7021-8 ####[facility] [place] LABCLIA [id number] [place] [address] [place]#### 34204-5 ####[facility] LABCLIA [id number] [address] [place] Nucleated RBC/100 WBC (Bld) [Ratio] Normal [facility] Comment on above: Order Comment: Speci men Type: BLOOD SPECIMENOrdering Facility: [facility] Address: [address] [place] [address] Performed By: #### 5 7021-8 ####[facility] LABCLIA [id number] [address]#### 27638-0 ####[facility] LABCLIA [id number] [place] [address] [place] Platelet mean volume (Bld) [Entitic vol] 9.3 fL Normal 9.0-12.7 [facility] Comment on above: Order Comment: Speci men Type: BLOOD SPECIMENOrdering Facility: [facility] Address: [address] [place] [address] Performed By: #### 5 7021-8 ####[facility] LABCLIA [id number] [address] STATES [facility]#### 92027-4 ####[facility] LABCLIA [id number] [place] [address] [place] Platelets (Bld) [#/Vol] 211 10*3/uL Normal 150-400 [facility] Comment on above: Order Comment: Speci men Type: BLOOD SPECIMENOrdering Facility: [facility] Address: [address] [place] [address] Performed By: #### 5 7021-8 ####[facility] [place] LABCLIA [id number] [place] [address] [place]#### 39518-0 ####[facility] LABCLIA [id number] [place] [address] [place] RBC (Bld) [#/Vol] 3.21 10*6/uL Low 4.20-6.00 [facility] Comment on above: Order Comment: Speci men Type: BLOOD SPECIMENOrdering Facility: [facility] Address: [address] [place] [address] Performed By: #### 5 7021-8 ####[facility] LABCLIA [id number] [address]#### 72684-6 ####[facility] LABCLIA [id number] [address] [place] WBC (Bld) [#/Vol] 6.42 10*3/uL Normal 3.70-11.00 [facility] Comment on above: Order Comment: Speci men Type: BLOOD SPECIMENOrdering Facility: [facility] Address: [address] [place] [address] Performed By: #### 5 7021-8 ####[facility] LABCLIA [id number] [address]#### 10666-3 ####[facility] LABCLIA [id number] [address] CBC panel Auto (Bld)on 05-21 Erythrocyte distribution width (RBC) [Ratio] 12.1 % Normal 11.5-15.0 [facility] Comment on above: Order Comment: Speci men Type: BLOOD SPECIMENOrdering Facility: [facility] Address: [address] [place] [address] Performed By: #### 5 8410-2 ####[facility] LABCLIA [id number] [address] Hematocrit (Bld) [Volume fraction] 33.0 % Low 39.0-51.0 [facility] Comment on above: Order Comment: Speci men Type: BLOOD SPECIMENOrdering Facility: [facility] Address: [address] [place] [address] Performed By: #### 5 8410-2 ####[facility] LABCLIA [id number] [place] [id number] [place] Hemoglobin (Bld) [Mass/Vol] 11.3 g/dL Low 13.0-17.0 [facility] Comment on above: Order Comment: Speci men Type: BLOOD SPECIMENOrdering Facility: [facility] Address: [address] [place] [address] Performed By: #### 5 8410-2 ####[facility] LABCLIA [id number] [place] [address] [place] MCH (RBC) [Entitic mass] 35.8 pg High 26.0-34.0 [facility] Comment on above: Order Comment: Speci men Type: BLOOD SPECIMENOrdering Facility: [facility] Address: [address] [place] [address] Performed By: #### 5 8410-2 ####[facility] LABCLIA [id number] [place] [address] [place] MCHC (RBC) [Mass/Vol] 34.2 g/dL Normal 30.5-36.0 [facility] Comment on above: Order Comment: Speci men Type: BLOOD SPECIMENOrdering Facility: [facility] Address: [address] [place] [address] Performed By: #### 5 8410-2 ####[facility] LABCLIA [id number] [place] [address] [place] MCV (RBC) [Entitic vol] 104.4 fL High 80.0-100.0 [facility] Comment on above: Order Comment: Speci men Type: BLOOD SPECIMENOrdering Facility: [facility] Address: [address] [place] [address] Performed By: #### 5 8410-2 ####[facility] LABCLIA [id number] [place] [address] [place] [facility] Platelet mean volume (Bld) [Entitic vol] 8.6 fL Low 9.0-12.7 [facility] Comment on above: Order Comment: Speci men Type: BLOOD SPECIMENOrdering Facility: [facility] Address: [address] [place] [address] Performed By: #### 5 8410-2 ####[facility] LABCLIA [id number] [place] [address] [facility] Platelets (Bld) [#/Vol] 182 10*3/uL Normal 150-400 [facility] Comment on above: Order Comment: Speci men Type: BLOOD SPECIMENOrdering Facility: [facility] Address: [facility] [place] [address] Performed By: #### 5 8410-2 ####[facility] LABCLIA [id number] [place] [address] [facility] [place] RBC (Bld) [#/Vol] 3.16 10*6/uL Low 4.20-6.00 [facility] Comment on above: Order Comment: Speci men Type: BLOOD SPECIMENOrdering Facility: [facility] Address: [facility] [place] [address] Performed By: #### 5 8410-2 ####[facility] LABCLIA [id number] [place] [address] [facility] [place] WBC (Bld) [#/Vol] 5.97 10*3/uL Normal 3.70-11.00 [facility] Comment on above: Order Comment: Speci men Type: BLOOD SPECIMENOrdering Facility: [facility] Address: [facility] [place] [address] Performed By: #### 5 8410-2 ####[facility] LABCLIA [id number] [place] [address] [facility] [place] 05-21-2025 CNPN Telephone (OTMB) KEITH KEVIN ([id number]) 1940 M Date Time Provider Department 05/21/25 [facility], we recorded the [...] Ruthy Hull would refer patient to a long term. Callback number: Bhupendra Kenney, Ruthy Min, BERTRAND.CLINICAL LABORATORY SCIENCE PROFESSOR 05/22/2025 8:57 AM Signed Cora can you please call him and review that I Spoke to son at length during appt, discussed son needs to find and decide on a [facility] facility then speak to that asset coordinator to find out what is needed, also discussed calling pt's PCP, to perhaps address skilled need related to falls, imbalance, ie need for lower leg weakness, I can address his arm issues only.Ruthy Bocanegra, BERTRAND.CLINICAL LABORATORY SCIENCE PROFESSOR Cora Mcconnell RN 05/22/2025 10:27 AM Signed [...] - Controlled E11.9 Insulin: No - multivit,susan,mn/folic/D3/ly messenger copy (ONE A DAY MEN COMPLETE ORAL) Take 1 tablet by mouth once daily. - Blood-Glucose Meter (NeolaneUCH ULTRA2) monitoring kit 1 Each as needed. [...] annual wellness visit, subsequent [Z00*05/15/2012 04/10/2017 Acute NC anterior wall first episode care (HCC)*11/11/2012 05/21/2025 ASHD (arteriosclerotic heart disease) [I25.10] 12/03/2012 Seborrheic Keratoses [L82.1] 01/05/2013 Viral warts, unspecified [B07.9] 01/05/2013 Lipoma [D17.9] 01/05/2013 Other seborrheic dermatitis [L21.8] 01/05/2013 05/21/2025 Solar lentigo [L81.4] 01/05/2013 Actinic skin damage [L57.8] 01/05/2013 Melanocytic nevi of upper extremity or shoulder*01/05/2013 Xerosis cutis [L85.3] 01/05/2013 History of acute anterior wall NC [I25.2] 02/26/2013 Diabetes mellitus type 2, controlled, without c*05/12/2015 04/10/2017 BPH (benign prostatic hyperplasia) [N40.0] 04/01/2016 Controlled type 2 diabetes mellitus without com* Other and unspecified hyperlipidemia [E78.5] 04/10/2017 Tinnitus [H93.19] Right inguinal hernia [K40.90] 12/13/2016 Hyperlipidemia [E78.5] 04/10/2017 04/10/2017 Statin declined [Z53.20] 07/31/2019 05/21/2025 Prostate cancer (HCC) [C61] 10/18/2021 Sick sinus syndrome (HCC) [I49.5] (more content not included)... Normal [facility] CT BRAIN WO IVCONon 05-21-20 CT BRAIN WO IVCON * * *Final Report* * * DATE OF EXAM: May 21 2025 7:52PM [facility] 0504 - CT BRAIN WO IVCON / [...] IMPRESSION: No evidence of acute intracranial process. Senior Network Security Architect: PSCB Transcribe Date/Time: May 21 2025 8:53P Dictated by : DEDE PEACOCK MD This examination was interpreted and the report reviewed and electronically signed by: DEDE PEACOCK MD on May 21 2025 8:54PM EST [id number] Normal [facility] CT CERVICAL SPINE WO IVCONon 05-21-2025 CT CERVICAL SPINE WO IVCON * * *Final Report* * * DATE OF EXAM: May 21 2025 7:52PM [facility] 0505 - CT CERVICAL SPINE WO IVCON [...] Counting reference: Craniocervical junction. Anatomic Variants: None. Solar Thermal Installer (topogram) images: Left chest pacemaker. Alignment: Alignment [...] vertebrae with counting from the craniocervical junction. Senior Network Security Architect: PSCB Transcribe Date/Time: May 21 2025 8:48P Dictated by : DEDE PEACOCK MD This examination was interpreted and the report reviewed and electronically signed by: DEDE PEACOCK MD on May 21 2025 8:52PM EST [id number] Normal [facility] Comprehensive metabolic 2000 panelon 05-21-2025 Albumin [Mass/Vol] 4.3 g/dL Normal 3.9-4.9 [facility] Comment on above: Order Comment: Speci men Type: BLOOD SPECIMENOrdering Facility: [facility] Address: [address] [place] [address] Performed By: #### 3 3762-6, 87223-7, ####[facility] LABCLIA [id number] [place] [address] [place] ALP [Catalytic activity/Vol] 59 U/L Normal 38-113 [facility] Comment on above: Order Comment: Speci men Type: BLOOD SPECIMENOrdering Facility: [facility] Address: [address] [place] [address] Performed By: #### 3 3762-6, 84135-2, ####[facility] LABCLIA [id number] [place] [address] [place] ALT With P-5'-P [Catalytic activity/Vol] 14 U/L Normal 10-54 [facility] Comment on above: Order Comment: Speci men Type: BLOOD SPECIMENOrdering Facility: [facility] Address: [address] [place] [address] Performed By: #### 3 3762-6, 32743-6, ####[facility] [place] LABCLIA [id number] [place] [address] [place] Anion gap [Moles/Vol] 20 mmol/L High 8-15 [facility] Comment on above: Order Comment: Speci men Type: BLOOD SPECIMENOrdering Facility: [facility] Address: [address] [place] [address] Performed By: #### 3 3762-6, 43250-2, ####[facility] [place] LABCLIA [id number] [place] [address] [place] AST With P-5'-P [Catalytic activity/Vol] 34 U/L Normal 14-40 [facility] Comment on above: Order Comment: Speci men Type: BLOOD SPECIMENOrdering Facility: [facility] Address: [address] [place] [address] Performed By: #### 3 3762-6, 48314-9, ####[facility] LABCLIA [id number] [facility] [place] [address] [place] Bilirubin [Mass/Vol] 0.8 mg/dL Normal 0.2-1.3 [facility] Comment on above: Order Comment: Speci men Type: BLOOD SPECIMENOrdering Facility: [facility] Address: [address] [place], [place] [address] Performed By: #### 3 3762-6, 59872-7, ####[facility] [place] LABCLIA [id number] [facility] [place] [address] [place] Calcium [Mass/Vol] 9.2 mg/dL Normal 8.5-10.2 [facility] Comment on above: Order Comment: Speci men Type: BLOOD SPECIMENOrdering Facility: [facility] Address: [address] [place] [address] Performed By: #### 3 3762-6, 90497-2, ####[facility] [place] LABCLIA [id number] [facility] [place] [address] [place] Chloride [Moles/Vol] 98 mmol/L Normal 98-107 [facility] Comment on above: Order Comment: Speci men Type: BLOOD SPECIMENOrdering Facility: [facility] Address: [address] [place] [address] Performed By: #### 3 3762-6, 78464-4, ####[facility] [place] LABCLIA [id number] [place] [address] [place] CO2 [Moles/Vol] 19 mmol/L Low 22-30 [facility] Comment on above: Order Comment: Speci men Type: BLOOD SPECIMENOrdering Facility: [facility] Address: [address] [place] [address] Performed By: #### 3 3762-6, 16809-3, ####[facility] LABCLIA [id number] [place] [address] [place] Creatinine [Mass/Vol] 0.76 mg/dL Normal 0.73-1.22 [facility] Comment on above: Order Comment: Speci men Type: BLOOD SPECIMENOrdering Facility: [facility] Address: [address] [place] [address] Performed By: #### 3 3762-6, 92521-1, ####[facility] LABCLIA [id number] [place] [address] [place] eGFRcr SerPlBld CKD-EPI 2020 88 mL/min/1.73m??? Normal >=60 [facility] Comment on above: Order Comment: Speci men Type: BLOOD SPECIMENOrdering Facility: [facility] Address: [address] [place] [address] Result Comment: Cristy mated Glomerular Filtration Rate [...] actual GFR. Performed By: #### 3 3762-6, 33177-5, ####[facility] LABCLIA [id number] [place] [address] [place] Glucose [Mass/Vol] 222 mg/dL High 74-99 [facility] Comment on above: Order Comment: Jonathani loc Type: BLOOD SPECIMENOrdering Facility: [facility] Address: [address] [place] [address] Result Comment: The [place] [employer] (ADA) provides guidance for cutoff [...] Standards of Medical Care in Diabetes 2016, [employer] [place] [employer]. Diabetes Care. 2016.39(Suppl 1). Performed By: #### 3 3762-6, 33192-1, ####[facility] LABCLIA [id number] [place] [address] [place] Potassium [Moles/Vol] 3.7 mmol/L Normal 3.7-5.1 [facility] Comment on above: Order Comment: Jonathani men Type: BLOOD SPECIMENOrdering Facility: [facility] Address: [address] [place] [id number] Performed By: #### 3 3762-6, 51407-8, ####[facility] LABIA [id number] [place] [address] [place] Protein [Mass/Vol] 7.3 g/dL Normal 6.3-8.0 [facility] Comment on above: Order Comment: Speci men Type: BLOOD SPECIMENOrdering Facility: [facility] Address: [address] [place] [address] Performed By: #### 3 3762-6, 66272-5, 20020-8 ####[facility] [place] LABCLIA [id number] [place] [address] [place] [facility] Sodium [Moles/Vol] 137 mmol/L Normal 136-144 [facility] Comment on above: Order Comment: Speci men Type: BLOOD SPECIMENOrdering Facility: [facility] Address: [address] [place] [address] Performed By: #### 3 3762-6, 15671-6, ####[facility] [place] LABCLIA [id number] [place] [address] [facility] Urea nitrogen [Mass/Vol] 13 mg/dL Normal 9-24 [facility] Comment on above: Order Comment: Speci men Type: BLOOD SPECIMENOrdering Facility: [facility] Address: [address] [place] [address] Performed By: #### 3 3762-6, 94934-9, 90063-1 ####[facility] [place] LABCLIA [id number] [place] [address] [place] XQR37ax 05-21-2025 ECG01 Ventricular Rate : 7 5 BPM Atrial Rate : 75 BPM P-R Interval : 210 ms QRS Duration : 122 ms Q-T Interval : 420 ms QTC Calculation(Bazett) : 469 ms Calculated P [place] : 40 degrees Calculated R [place] : -16 degrees Calculated T [place] : 1 degrees SINUS RHYTHM WITH 1ST DEGREE A-V BLOCK RIGHT BUNDLE BRANCH BLOCK INFERIOR INFARCT , AGE UNDETERMINED ABNORMAL ECG NO PREVIOUS ECGS AVAILABLE No STEMI Confirmed by BABITA CALLAHAN MD ([id number]) on 05/21/2025 7:21:01 PM NAME : KEITH KEVIN PID : [id number] : 1940 Gender : Male Race : ORD : Procedure Date : May 21 2025 18:50:52 Edit Date : May 21 2025 19:21:04 Diagnosis: SINUS RHYTHM WITH 1ST DEGREE A-V BLOCK RIGHT BUNDLE BRANCH BLOCK INFERIOR INFARCT , AGE UNDETERMINED ABNORMAL ECG NO PREVIOUS ECGS AVAILABLE No STEMI Confirmed by BABITA CALLAHAN MD ([id number]) on 05/21/2025 7:21:01 PM Test Reason : Location : 150 : [place] Overread By : BABITA CALLAHAN MD Edited By : BABITA CALLAHAN MD Referred By : , Acquired by : MARIELA PAN [facility] ED NOTEon 05-21-2025 ED NOTE HNO ID: [id number] Author: CARO BURGESS RN Service: Emergency Medicine Author Type: Registered Nurse Type: ED Notes Filed: 05/21/2025 21:48 Note Text: Hospitalist on phone with ED physician at this time. [facility] ED NOTE HNO ID: [id number] Author: CARO BURGESS RN Service: Emergency Medicine Author Type: Registered Nurse Type: ED Notes Filed: 05/21/2025 21:37 Note Text: 2nd page to hospitalist sent at this time. [facility] ED NOTE HNO ID: [id number] Author: CARO BURGESS RN Service: Emergency Medicine Author Type: Registered Nurse Type: ED Notes Filed: 05/21/2025 21:15 Note Text: Hospitalist paged at this time. [facility] ED NOTE HNO ID: [id number] Author: ?, ?, ? Service: Emergency Medicine Author Type: ? Type: ED Notes Filed: 05/21/2025 19:54 Note Text: Patient report received from ESAU Ibrahim. Now assuming pt care at this time. [facility] ED NOTE HNO ID: [id number] Author: CARO BURGESS RN Service: Emergency Medicine Author Type: Registered Nurse Type: ED Notes Filed: 05/21/2025 19:45 Note Text: Change of shift report received from Alexandria Moore RN. I assumed patient care at this time. [facility] ED NOTE HNO ID: [id number] Author: ALEXANDRIA KAMINSKI RN Service: ? Author [...] was 2022 and unsure of birthday. Normal [facility] ED NOTE HNO ID: [id number] Author: AUGUSTINE DRAKE RN Service: Emergency Medicine Author Type: Registered Nurse Type: ED Notes Filed: 05/21/2025 18:51 Note Text: Patient brought in by [facility] who were called by the son [...] VS as charted. Son to bedside. On cardiac nurse practitioner. Call light in reach. Normal [facility] ED PROV NOTEon 05-21-2025 ED PROV NOTE HNO ID: [id number] Author: BABITA CALLAHAN MD Service: Emergency Medicine [...] CORONARY ENDARTERCOMY OPEN ANY METHOD 09/2012 Angioplasty, [place] EGD 06/1999 EGD TRANSORAL BIOPSY SINGLE/MULTIPLE 05/28/2013 HERNIA REPAIR HX 1994 x6 LEFT HEART CATH,PERCUTANEOUS 09/2012 Cardiac cath, L heart, [place] RPR 1ST INGUN HRNA AGE 4 YRS/> [...] Extraocular Movements (more content not included)... Normal [facility] Folate SerPl-mCncon 05-21-20 25 Folate [Mass/Vol] ng/mL Normal >4.7 [facility] Comment on above: Order Comment: Speci men Type: BLOOD SPECIMENOrdering Facility: [facility] Address: [address] [place] [address] Result Comment: A re sult of > 20 ng/mL is not necessarily indicative of a pathologic or treatable condition: it reflects a limitation of the test methodology. Assay reference range: 4.8 to 24.2 ng/mL. Suitable for detection of folate deficiency. Reference: Folate III (Folate III) [package insert V 1.0 Nauruan]. [facility], [place], [place]: May 2015. Performed By: #### 2 132-9, 2284-8 ####[facility] LABORATORYCLIA [id number] [place] [address] [facility] HIGH SENSITIVITY TROPONIN T (INITIAL)on 05-21-2025 Troponin T.cardiac High sensitivity method [Mass/Vol] 43 ng/L High <12 [facility] Comment on above: Order Comment: Speci men Type: BLOOD SPECIMENOrdering Facility: [facility] Address: [address] [place] [address] Performed By: #### L [id number] ####[facility] LABCLIA [id number] [place] [address] [facility] HIGH SENSITIVITY TROPONIN T (SECOND)on 05-21-2025 Troponin T.cardiac High sensitivity method [Mass/Vol] 45 ng/L High <12 [facility] Comment on above: Order Comment: Speci men Type: BLOOD SPECIMENOrdering Facility: [facility] Address: [address] [place] [address] Performed By: #### L [id number] ####[facility] LABCLIA [id number] [place] [address] [facility] HIGH SENSITIVITY TROPONIN T (THIRD) 3 HRS AFTER INITIALon 05-21-2025 Troponin T.cardiac High sensitivity method [Mass/Vol] 49 ng/L High <12 [facility] Comment on above: Order Comment: Speci men Type: BLOOD SPECIMENOrdering Facility: [facility] Address: [address] [place] [address] Performed By: #### L [id number] ####[facility] LABCLIA [id number] [place] [address] [facility] HISTORY PHYSICALon HISTORY PHYSICAL HNO ID: [id number] Author: WALTER DAVISON APRN.CNP Service: Hospital Medicine Author Type: Nurse Practitioner Type: H&P Filed: 05/21/2025 22:17 Note Text: DEPARTMENT OF HOSPITAL MEDICINE PROGRESS NOTE SERVICE DATE: 05/21/2025 SERVICE TIME: 10:03 PM Hospital Medicine/Primary Attending: Grabiel Leigh MD Subjective BRIEF HPI: Mr. Keith Kevin is an 84-year-old male with a past medical history notable for DM2, hypertension, history of anterior wall NC, ASHD, sick sinus syndrome s/p pacemaker, prostate [...] for DM2, hypertension, history of anterior wall NC, ASHD, sick sinus syndrome s/p pacemaker, prostate [...] but cannot discount other etiologies -Hold home [place] for now and instead prescribe analgesics as below - Check other metabolic processes/labs--> unable to obtain ammonia at [facility] but low suspicion of hepatic encephalopathy -Neurochecks entered overnight -Conside (more content not included)... Normal [facility] HbA1c (Bld)on 05-21-2025 Average glucose Estimated from glycated hemoglobin (Bld) [Mass/Vol] 134 mg/dL Normal [facility] Comment on above: Order Comment: Speci men Type: BLOOD SPECIMENOrdering Facility: [facility] Address: [address] [place] [address] Result Comment: eAG: (Estimated average glucose) is a calculated value from HgbA1c and is medical sales representative of the average blood glucose level in the last 2-3 month period. Performed By: #### 5 7021-8 ####[facility] LABCLIA [id number] [place] [address] [place]#### 34841-6 ####[facility] LABCLIA [id number] [place] [address] [place] HbA1c (Bld) [Mass fraction] 6.3 % High 4.3-5.6 [facility] Comment on above: Order Comment: Speci men Type: BLOOD SPECIMENOrdering Facility: [facility] Address: [address] [place] [address] Result Comment: Amer ican Diabetes Association guidelines indicate that patients with HgbA1c in the range 5.7-6.4% are at increased risk for development of diabetes, and intervention by lifestyle modification may be beneficial. HgbA1c greater or equal to 6.5% is considered diagnostic of diabetes. Performed By: #### 5 7021-8 ####[facility] LABCLIA [id number] [address] STATES [facility]#### 78291-2 ####[facility] LABCLIA [id number] [address] [place] Magnesium SerPl-ncon 05-21 Magnesium [Mass/Vol] 2.1 mg/dL Normal 1.7-2.3 [facility] Comment on above: Order Comment: Speci men Type: BLOOD SPECIMENOrdering Facility: [facility] Address: [address] [place] [address] Performed By: #### 1 9123-9 ####[facility] LABCLIA [id number] [address] [place] Magnesium [Mass/Vol] 2.0 mg/dL Normal 1.7-2.3 [facility] Comment on above: Order Comment: Speci men Type: BLOOD SPECIMENOrdering Facility: [facility] Address: [address] [place] [address] Performed By: #### 3 3762-6, 74376-6, ####[facility] LABCLIA [id number] [place] [address] [facility] NT-proBNP SerPl-mCncon 05-21 Natriuretic peptide.B prohormone N-Terminal [Mass/Vol] 1257 pg/mL High <450 [facility] Comment on above: Order Comment: Speci men Type: BLOOD SPECIMENOrdering Facility: [facility] Address: [address] [place] [address] Performed By: #### 3 3762-6, 07950-9, ####[facility] LABCLIA [id number] [place] [address] [facility] SEPSIS LACTATEon 05-21-2025 Lactate [Moles/Vol] 1.8 mmol/L Normal <=2.0 [facility] Comment on above: Order Comment: Speci men Type: BLOOD SPECIMENOrdering Facility: [facility] Address: [address] [place] [address] Performed By: #### S LACT ####[facility] LABCLIA [id number] [place] [address] [facility] [place] Urinalysis complete panel (U )on 05-21-2025 Bacteria LM.HPF (Urine sed) [#/Area] Few Abnormal None Seen [facility] Comment on above: Order Comment: Speci men Type: URINE SPECIMENOrdering Facility: [facility] Address: [address] [place] [address] Performed By: #### 2 4356-8 ####[facility] LABCLIA [id number] [place] [address] [facility] Bilirubin Ql (U) 1+ Abnormal Negative [facility] Comment on above: Order Comment: Speci men Type: URINE SPECIMENOrdering Facility: [facility] Address: [address] [place] [place] [id number] Result Comment: Sugg est correlation with clinical findings and serum bilirubin if clinically indicated. Performed By: #### 2 4356-8 ####[facility] LABCLIA [id number] [facility] [place] [address] [facility] Clarity (Unsp spec) Clear Normal Clear [facility] Comment on above: Order Comment: Speci men Type: URINE SPECIMENOrdering Facility: [facility] Address: [address] [place] [address] Performed By: #### 2 4356-8 ####[facility] LABCLIA [id number] [facility] [place] [address] [facility] Color (U) Yellow Normal Yellow [facility] Comment on above: Order Comment: Speci men Type: URINE SPECIMENOrdering Facility: [facility] Address: [address] [place] [address] Performed By: #### 2 4356-8 ####[facility] LABCLIA [id number] [facility] [address] [facility] Glucose Test strip (U) [Mass/Vol] Trace Abnormal Negative [facility] Comment on above: Order Comment: Speci men Type: URINE SPECIMENOrdering Facility: [facility] Address: [address] [place] [address] Performed By: #### 2 4356-8 ####[facility] LABCLIA [id number] [facility] [address] [place] Hemoglobin Ql (U) Trace Abnormal Negative [facility] Comment on above: Order Comment: Speci men Type: URINE SPECIMENOrdering Facility: [facility] Address: [address] [place] [address] Performed By: #### 2 4356-8 ####[facility] LABCLIA [id number] [place] [address] [facility] Ketones Ql (U) 4+ Abnormal Negative [facility] Comment on above: Order Comment: Speci men Type: URINE SPECIMENOrdering Facility: [facility] Address: [address] [place] [address] Performed By: #### 2 4356-8 ####[facility] LABCLIA [id number] [place] [address] [facility] Leukocyte esterase Test strip Ql (U) Negative Normal Negative [facility] Comment on above: Order Comment: Speci men Type: URINE SPECIMENOrdering Facility: [facility] Address: [address] [place] [address] Performed By: #### 2 4356-8 ####[facility] LABCLIA [id number] [place] [address] [place] [facility] Nitrite Ql (U) Negative Normal Negative [facility] Comment on above: Order Comment: Speci men Type: URINE SPECIMENOrdering Facility: [facility] Address: [address] [place] [address] Performed By: #### 2 4356-8 ####[facility] LABCLIA [id number] [place] [address] [place] pH (U) 6.0 [pH] Normal 5.0-8.0 [facility] Comment on above: Order Comment: Speci men Type: URINE SPECIMENOrdering Facility: [facility] Address: [address] [place] [address] Performed By: #### 2 4356-8 ####[facility] LABCLIA [id number] [place] [address] [facility] Protein (U) [Mass/Vol] 1+ Abnormal Negative [facility] Comment on above: Order Comment: Speci men Type: URINE SPECIMENOrdering Facility: [facility] Address: [address] [place] [address] Performed By: #### 2 4356-8 ####[facility] LABCLIA [id number] [place] [address] [facility] RBC LM.HPF (Urine sed) [#/Area] 0-3 /HPF Normal 0-3 /HPF [facility] Comment on above: Order Comment: Speci men Type: URINE SPECIMENOrdering Facility: [facility] Address: [address] [place] [address] Performed By: #### 2 4356-8 ####[facility] LABCLIA [id number] [place] [address] [facility] Specific gravity (U) [Rel density] 1.025 Normal 1.005-1.030 [facility] Comment on above: Order Comment: Speci men Type: URINE SPECIMENOrdering Facility: [facility] Address: [address] [place] [address] Performed By: #### 2 4356-8 ####[facility] LABCLIA [id number] [place] [id number] [facility] [place] Urobilinogen Ql (U) 0.2 EU/dL Normal 0.2-1.0 EU/dL [facility] Comment on above: Order Comment: Speci men Type: URINE SPECIMENOrdering Facility: [facility] Address: [address] [place] [address] Performed By: #### 2 4356-8 ####[facility] LABIA [id number] [place] [id number] [place] WBC LM.HPF (Urine sed) [#/Area] 0-5 /HPF Normal 0-5 /HPF [facility] Comment on above: Order Comment: Speci men Type: URINE SPECIMENOrdering Facility: [facility] Address: [address] [place] [address] Performed By: #### 2 4356-8 ####[facility] LABCLIA [id number] [place] [address] [place] VITAMIN B1 (THIAMINE), WHOLE BLOODon 05-21-2025 Thiamine (Bld) [Moles/Vol] 142.8 nmol/L Normal 84.3-213.3 [facility] Comment on above: Order Comment: Speci men Type: BLOOD SPECIMENOrdering Facility: [facility] Address: [address] [place] [address] Result Comment: This assay measures the concentration of thiamine diphosphate (TDP), the primary active form of vitamin B1. Approximately 90 percent of vitamin B1 present in whole blood is TDP. Thiamine and thiamine monophosphate, which comprise the remaining 10 percent, are not measured. This test was developed, and its performance characteristics determined by the [facility] Department of Pathology and Laboratory Medicine. It has not been cleared or approved by the FDA. The [facility] Department of Pathology and Laboratory Medicine is regulated under CLIA as qualified to perform high-complexity testing. This test is used for clinical purposes. It should not be regarded as investigational or for research. Performed By: #### B 1WB ####[facility] LABCLIA [id number] [place] [address] [place] Vit B12 [facility] 025 Cobalamin (Vitamin B12) [Mass/Vol] 587 pg/mL Normal 232-1245 [facility] Comment on above: Order Comment: Speci men Type: BLOOD SPECIMENOrdering Facility: [facility] Address: [address] [place] [address] Performed By: #### 2 132-9, 2284-8 ####[facility] LAB[facility]ATORYCLIA [id number] [place] [address] [place] XR CHEST 1V [...] IMPRESSION: No evidence of acute intrathoracic process. Senior Network Security Architect: TAL Transcribe Date/Time: May 21 2025 8:43P Dictated by : DEDE PEACOCK MD This examination was interpreted and the report reviewed and electronically signed by: DEDE PEACOCK MD on May 21 2025 8:44PM EST [id number] Normal [facility] CNOVon 05-20-2025 CNOV Office Visit (OTMBHT ) KEITH KEVIN ([id number]) 1940 M Date Time Provider Department 05/20/25 1:40 PM RUTHY BOCANEGRA During your visit today, we recorded the following information about you: Ruthy Bocanegra APRN.CLINICAL LABORATORY SCIENCE PROFESSOR 05/23/2025 11:00 AM Signed SHOULDER/ELBOW INITIAL CONSULT Recording using Immunov[employer] software for draft documentation of the visit was discussed with the patient/authorized medical sales representative; all questions welcomed and answered. Patient/authorized medical sales representative agreed to proceed SERVICE DATE: 05/20/2025 [...] NO HEMORRHAGE Bradycardia Hypertension Sleep Apnea Acute NC Anterior Wall First Episode Care ([facility]) Ashd (Arteriosclerotic Heart Disease) Seborrheic Keratoses Viral Warts, Unspecified Lipoma Other Seborrheic Dermatitis Solar Lentigo Actinic Skin Damage Melanocytic Nevi of Upper Extremity Or Shoulder Xerosis Cutis History of Acute Anterior Wall NC Bph W Urinary Obs/Luts Controlled Type 2 Diabetes Mellitus Without Complication, Without Long-Term Current Use of Insulin ([facility]) Tinnitus Right Inguinal Hernia Statin Declined Prostate Cancer ([facility]) Sick Sinus Syndrome ([facility]) Ddd (Degenerative Disc Disease), Lumbar [...] specified gastritis with hemorrhage Pacemaker Prostate cancer ([facility]) 07/2020 Dr. Dai. S/p radiation and hormone deprivation Refusal of statin medication by patient Sick sinus syndrome ([facility]) ST elevation myocardial infarction (STEMI) of anterior wall ([facility]) 10/02/2012 PCI not amenable to stent Tinnitus Type II or unspecified type diabetes mellitus without mention of complication, not stated as uncontrolled PAST SURGICAL HISTORY Procedure Laterality Date ANESTH,PACEMAKER INSERTION 10/07/2020 CATARACT EXTRACTION HX Bilateral 07/2016 COLONOSCOPY 06/1999 COLONOSCOPY FLX DX W/COLLJ SPEC WHEN PFRMD 01/29/2009 Diverticulosis COLONOSCOPY FLX DX W/COLLJ SPEC WHEN PFRMD 05/28/2013 CORONARY ENDARTERCOMY OPEN ANY METHOD 09/2012 Angioplasty, [place] EGD 06/1999 EGD TRANSORAL BIOPSY SINGLE/MULTIPLE 05/28/2013 HERNIA REPAIR HX 1994 x6 LEFT HEART CATH,PERCUTANEOUS 09/2012 Cardiac cath, L heart, [place] RPR 1ST INGUN HRNA AGE 4 YRS/> [...] every 6 (more content not included)... Normal [facility] ALLIED HEALTHon 05-19-2025 ALLIED HEALTH HNO ID: [id number] Author: LOIS CLEVELAND RT(R) Service: ? Author [...] PATIENT PRESENTS WITH AN IMPLANTABLE OR ATTACHED MEDICAL RECORDS DIRECTOR: No RADIOLOGY DEPARTMENT: General X-ray: Exam(s) Completed: Upper Extremity X-Ray(s): Shoulder, AP / TRUE AP right and Humerus, right y-view shoulder PERIPHERAL IV DATA: Not applicable SIGNED BY: RT Bernardo(R) May 19, 2025 7:30 PM [facility] ED NOTEon 05-19-2025 ED NOTE HNO ID: [id number] Author: ASHLEE FALK RN Service: Nursing Author [...] DATE: May 20, 2025 TIME: 6:49 PM [facility] ED NOTE HNO ID: [id number] Author: VENKAT CRUZ RN Service: ? Author Type: Registered Nurse Type: ED Notes Filed: 05/19/2025 22:48 Note Text: D/c instructions reviewed with pt and pt's son who verbalized understanding. Pt's vss and left ED in wheelchair in stable condition with son. [facility] ED NOTE HNO ID: [id number] Author: VENKAT CRUZ RN Service: ? Author Type: Registered Nurse Type: ED Notes Filed: 05/19/2025 21:54 Note Text: Sling applied to pts R arm [facility] ED NOTE HNO ID: [id number] Author: VENKAT CRUZ RN Service: ? Author [...] ROM. AANDOx3. Vss. Will continue to monitor. [facility] XR HUMERUS 2V AP/LAT RTon XR [...] identified. IMPRESSION: Impacted fracture proximal right humerus. Senior Network Security Architect: TAL Transcribe Date/Time: May 19 2025 8:07P Dictated by : KAT KING MD This examination was interpreted and the report reviewed and electronically signed by: KAT KING MD on May 19 2025 8:09PM EST [id number] [facility] XR SHLDR >/=3V AP/SASHA AP/OTH R [...] identified. IMPRESSION: Impacted fracture proximal right humerus. Senior Network Security Architect: TAL Transcribe Date/Time: May 19 2025 8:07P Dictated by : KAT KING MD This examination was interpreted and the report reviewed and electronically signed by: KAT KING MD on May 19 2025 8:09PM EST [id number] Normal [facility] Cardiology Visit Reporton Cardiology Visit Report [facility] [address] [place], [place] [address] OFFICE VISIT Date of Service: 04/09/25 MR#: [id number] Acct: [id number] Name: KEITH KEVIN Rep #: [id number] : 1940 Provider: Dr. Alcon Grajeda MD Age/Sex: 84/M Location: [facility] Status: Signed HPI HPI History of Present [...] syndrome. He states that he had an NC in 2015 when he was in [place], he states he underwent a balloon angioplasty. [...] Monitor Intake Visit Reasons: 1 Y FU Aligning Inspector Required: No Is patient in pain?: No [...] Bilateral: C (more content not included)... Normal [facility] Pacemaker Checkon 02-24-2025 Pacemaker Check [facility] [address] [place] [address] Pacemaker Check Date of Service: 02/24/251734 MR#: [id number] Acct: [id number] Name: KEITH KEVIN Rep #: [id number] : 1940 From: Jamee Lamar Age/Sex: 84/M Location: [facility] Status: Signed Billing Codes PM Device Codes: 30099 PM Dev Prog Eval, Dual Assessment and Plan Assessment and Plan (1) NSVT (nonsustained ventricular tachycardia): Status: Acute Comment: Per device report 02/20/2024; (2) Sick sinus syndrome: Status: Acute (3) Cardiac pacemaker in situ: Status: Chronic Comment: PPM Ventricular lead - Business Applications Specialist: [employer]onic, Model # CapSureFix Novus MRI SureScan 5076-52 , Serial # [id number];PPM Atrial lead - Business Applications Specialist: [employer], Model # CapSureFix Novus MRI SureScan 5076-45 , Serial # [id number]; PPM Generator - Business Applications Specialist: [employer], Model # Worley XT DR MRI SureScan [id number] , Serial # [id number] 02/24/251735 Date Jameeabby Lamar Cosigner Signature: Date (if applicable) CC: Normal [facility] Bacteria Ur Culton Bacteria identified Cx Nom (U) CULTURE, URINE: No growth (<1,000 CFU/ml) Normal [facility] Comment on above: Performed By: #### 6 30-4 ####[facility] LABCLIA [id number] [place] [address] [place] CBC W Auto Differential pane l (Bld)on 02-14-2025 Basophils (Bld) [#/Vol] 0.03 10*3/uL Normal <0.11 [facility] Comment on above: Order Comment: Speci men Type: BLOOD SPECIMENOrdering Facility: [facility] Address: [address] [place] [address] Performed By: #### 5 7021-8 ####[facility] LABCLIA [id number] [place] [address] [place] Basophils/100 WBC (Bld) 0.7 % Normal [facility] Comment on above: Order Comment: Speci men Type: BLOOD SPECIMENOrdering Facility: [facility] Address: [address] [place] [address] Performed By: #### 5 7021-8 ####[facility] LABCLIA [id number] [address] [place] Differential cell count method Nom (Bld) Auto Normal [facility] Comment on above: Order Comment: Speci men Type: BLOOD SPECIMENOrdering Facility: [facility] Address: [address] [place] [address] Performed By: #### 5 7021-8 ####[facility] LABCLIA [id number] [place] [address] [place] Eosinophils (Bld) [#/Vol] 0.15 10*3/uL Normal <0.46 [facility] Comment on above: Order Comment: Speci men Type: BLOOD SPECIMENOrdering Facility: [facility] Address: [address] [place] [address] Performed By: #### 5 7021-8 ####[facility] LABCLIA [id number] [address], [place] [address] [place] Eosinophils/100 WBC (Bld) 3.7 % Normal [facility] Comment on above: Order Comment: Speci men Type: BLOOD SPECIMENOrdering Facility: [facility] Address: [address] [place] [address] Performed By: #### 5 7021-8 ####[facility] LABIA [id number] [address], [place] [address] [place] Erythrocyte distribution width (RBC) [Ratio] 11.9 % Normal 11.5-15.0 [facility] Comment on above: Order Comment: Speci men Type: BLOOD SPECIMENOrdering Facility: [facility] Address: [address] [place] [address] Performed By: #### 5 7021-8 ####[facility] LABIA [id number] [address], [place] [address] [place] Hematocrit (Bld) [Volume fraction] 38.1 % Low 39.0-51.0 [facility] Comment on above: Order Comment: Speci men Type: BLOOD SPECIMENOrdering Facility: [facility] Address: [address] [place] [address] Performed By: #### 5 7021-8 ####[facility] LABCLIA [id number] [address], [facility] [place] Hemoglobin (Bld) [Mass/Vol] 13.2 g/dL Normal 13.0-17.0 [facility] Comment on above: Order Comment: Speci men Type: BLOOD SPECIMENOrdering Facility: [facility] Address: [address] [place] [address] Performed By: #### 5 7021-8 ####[facility] LABIA [id number] [place] [address] [place] Immature granulocytes (Bld) [#/Vol] 10*3/uL Normal <0.10 [facility] Comment on above: Order Comment: Speci men Type: BLOOD SPECIMENOrdering Facility: [facility] Address: [address] [place] [address] Performed By: #### 5 7021-8 ####[facility] LABCLIA [id number] [place] [address] [place] Immature granulocytes/100 WBC (Bld) 0.2 % Normal [facility] Comment on above: Order Comment: Speci men Type: BLOOD SPECIMENOrdering Facility: [facility] Address: [address] [place] [address] Performed By: #### 5 7021-8 ####[facility] LABCLIA [id number] [place] [address] [place] Lymphocytes (Bld) [#/Vol] 1.55 10*3/uL Normal 1.00-4.00 [facility] Comment on above: Order Comment: Speci men Type: BLOOD SPECIMENOrdering Facility: [facility] Address: [address] [place] [address] Performed By: #### 5 7021-8 ####[facility] LABCLIA [id number] [place] [address] [place] Lymphocytes/100 WBC (Bld) 38.3 % Normal [facility] Comment on above: Order Comment: Speci men Type: BLOOD SPECIMENOrdering Facility: [facility] Address: [address] [place] [address] Performed By: #### 5 7021-8 ####[facility] LABCLIA [id number] [place] [address] [place] MCH (RBC) [Entitic mass] 34.8 pg High 26.0-34.0 [facility] Comment on above: Order Comment: Speci men Type: BLOOD SPECIMENOrdering Facility: [facility] Address: [address] [place] [address] Performed By: #### 5 7021-8 ####[facility] LABCLIA [id number] [place] [address] [place] MCHC (RBC) [Mass/Vol] 34.6 g/dL Normal 30.5-36.0 [facility] Comment on above: Order Comment: Speci men Type: BLOOD SPECIMENOrdering Facility: [facility] Address: [address] [place] [address] Performed By: #### 5 7021-8 ####[facility] LABCLIA [id number] [place] [address] [place] MCV (RBC) [Entitic vol] 100.5 fL High 80.0-100.0 [facility] Comment on above: Order Comment: Speci men Type: BLOOD SPECIMENOrdering Facility: [facility] Address: [address] [place] [address] Performed By: #### 5 7021-8 ####[facility] LABIA [id number] [place] [address] [place] Monocytes (Bld) [#/Vol] 0.44 10*3/uL Normal <0.87 [facility] Comment on above: Order Comment: Speci men Type: BLOOD SPECIMENOrdering Facility: [facility] Address: [address] [place] [address] Performed By: #### 5 7021-8 ####[facility] LABCLIA [id number] [place] [address] [place] Monocytes/100 WBC (Bld) 10.9 % Normal [facility] Comment on above: Order Comment: Speci men Type: BLOOD SPECIMENOrdering Facility: [facility] Address: [address] [place] [address] Performed By: #### 5 7021-8 ####[facility] LABCLIA [id number] [address] [address] [place] Neutrophils (Bld) [#/Vol] 1.87 10*3/uL Normal 1.45-7.50 [facility] Comment on above: Order Comment: Speci men Type: BLOOD SPECIMENOrdering Facility: [facility] Address: [address] [place] [place] [address] Performed By: #### 5 7021-8 ####[facility] [id number] [facility] [place] [address] [place] Neutrophils/100 WBC (Bld) 46.2 % Normal [facility] Comment on above: Order Comment: Speci men Type: BLOOD SPECIMENOrdering Facility: [facility] Address: [address] [place] [address] Performed By: #### 5 7021-8 ####[facility]CL[facility] [id number] [place] [address] [place] Nucleated RBC (Bld) [#/Vol] 10*3/uL Normal <0.01 [facility] Comment on above: Order Comment: Speci men Type: BLOOD SPECIMENOrdering Facility: [facility] Address: [address] [place] [address] Performed By: #### 5 7021-8 ####[facility]CL[facility] [id number] [place] [address] [place] Nucleated RBC/100 WBC (Bld) [Ratio] 0.0 /100 WBC Normal [facility] Comment on above: Order Comment: Speci men Type: BLOOD SPECIMENOrdering Facility: [facility] Address: [address] [place] [address] Performed By: #### 5 7021-8 ####[facility]CL[facility] [id number] [address] [address] [place] Platelet mean volume (Bld) [Entitic vol] 9.2 fL Normal 9.0-12.7 [facility] Comment on above: Order Comment: Speci men Type: BLOOD SPECIMENOrdering Facility: [facility] Address: [address] [place] [address] Performed By: #### 5 7021-8 ####[facility] LABIA [id number] [address] [address] [place] Platelets (Bld) [#/Vol] 240 10*3/uL Normal 150-400 [facility] Comment on above: Order Comment: Speci men Type: BLOOD SPECIMENOrdering Facility: [facility] Address: [address] [place] [address] Performed By: #### 5 7021-8 ####[facility] LABIA [id number] [address] [address] [place] RBC (Bld) [#/Vol] 3.79 10*6/uL Low 4.20-6.00 [facility] Comment on above: Order Comment: Speci men Type: BLOOD SPECIMENOrdering Facility: [facility] Address: [address] [place] [address] Performed By: #### 5 7021-8 ####[facility] LABIA [id number] [address] [address] [place] WBC (Bld) [#/Vol] 4.05 10*3/uL Normal 3.70-11.00 [facility] Comment on above: Order Comment: Speci men Type: BLOOD SPECIMENOrdering Facility: [facility] Address: [address] [place] [address] Performed By: #### 5 7021-8 ####[facility] LABIA [id number] [address] [address] [place] Comprehensive metabolic 2000 panelon 02-14-2025 Albumin [Mass/Vol] 4.7 g/dL Normal 3.9-4.9 [facility] Comment on above: Order Comment: Speci men Type: BLOOD SPECIMENOrdering Facility: [facility] Address: [address] [place] [address] Performed By: #### 2 4323-8, LIPNF ####[facility]CL[facility] [id number] [place] [address] [place] ALP [Catalytic activity/Vol] 56 U/L Normal 38-113 [facility] Comment on above: Order Comment: Speci men Type: BLOOD SPECIMENOrdering Facility: [facility] Address: [address] [place] [address] Performed By: #### 2 4323-8, LIPNF ####[facility]CL[facility] [id number] [place] [address] [place] ALT [Catalytic activity/Vol] 12 U/L Normal 10-54 [facility] Comment on above: Order Comment: Speci men Type: BLOOD SPECIMENOrdering Facility: [facility] Address: [address] [place] [address] Performed By: #### 2 4323-8, LIPNF ####[facility]CL[facility] [id number] [place] [address] [place] Anion gap [Moles/Vol] 14 mmol/L Normal 8-15 [facility] Comment on above: Order Comment: Speci men Type: BLOOD SPECIMENOrdering Facility: [facility] Address: [address] [place] [address] Performed By: #### 2 4323-8, LIPNF ####[facility]CLIA [id number] [place] [id number] [place] AST [Catalytic activity/Vol] 20 U/L Normal 14-40 [facility] Comment on above: Order Comment: Speci men Type: BLOOD SPECIMENOrdering Facility: [facility] Address: [address] [place] [address] Performed By: #### 2 4323-8, LIPNF ####[facility]CL[facility] [id number] [place] [id number] [place] Bilirubin [Mass/Vol] 0.5 mg/dL Normal 0.2-1.3 [facility] Comment on above: Order Comment: Speci men Type: BLOOD SPECIMENOrdering Facility: [facility] Address: [address] [place] [address] Performed By: #### 2 4323-8, LIPNF ####[facility]CL[facility] [id number] [facility] [place] [address] [place] Calcium [Mass/Vol] 10.3 mg/dL High 8.5-10.2 [facility] Comment on above: Order Comment: Speci men Type: BLOOD SPECIMENOrdering Facility: [facility] Address: [address] [place] [address] Performed By: #### 2 4323-8, LIPNF ####[facility]CL[facility] [id number] [place] [address] [place] Chloride [Moles/Vol] 100 mmol/L Normal 98-107 [facility] Comment on above: Order Comment: Speci men Type: BLOOD SPECIMENOrdering Facility: [facility] Address: [address] [place] [address] Performed By: #### 2 4323-8, LIPNF ####[facility]CL[facility] [id number] [place] [address] [place] CO2 [Moles/Vol] 24 mmol/L Normal 22-30 [facility] Comment on above: Order Comment: Speci men Type: BLOOD SPECIMENOrdering Facility: [facility] Address: [address] [place] [address] Performed By: #### 2 4323-8, LIPNF ####[facility]CL[facility] [id number] [place] [id number] [place] Creatinine [Mass/Vol] 0.88 mg/dL Normal 0.73-1.22 [facility] Comment on above: Order Comment: Speci men Type: BLOOD SPECIMENOrdering Facility: [facility] Address: [address] [place] [address] Performed By: #### 2 4323-8, LIPNF ####[facility] [id number] [place] [address] [place] eGFRcr SerPlBld CKD-EPI 2020 84 mL/min/1.73m??? Normal >=60 [facility] Comment on above: Order Comment: Vera men Type: BLOOD SPECIMENOrdering Facility: [facility] Address: [address] [place] [address] Result Comment: Cristy mated Glomerular Filtration Rate [...] GFR. Performed By: #### 2 4323-8, LIPNF ####[facility] LABIA [id number] [place] [address] [place] Glucose [Mass/Vol] 165 mg/dL High 74-99 [facility] Comment on above: Order Comment: Vera monterroso Type: BLOOD SPECIMENOrdering Facility: [facility] Address: [address] [place] [address] Result Comment: The [place] Diabetes Association (ADA) provides guidance for cutoff [...] Standards of Medical Care in Diabetes 2016, [place] [employer]. Diabetes Care. 2016.39(Suppl 1). Performed By: #### 2 4323-8, LIPNF ####[facility]CL[facility] [id number] [address] [address] [place] Potassium [Moles/Vol] 4.6 mmol/L Normal 3.7-5.1 [facility] Comment on above: Order Comment: Speci men Type: BLOOD SPECIMENOrdering Facility: [facility] Address: [address] [place] [address] Performed By: #### 2 4323-8, LIPNF ####[facility]CLIA [id number] [place] [id number] [place] Protein [Mass/Vol] 7.2 g/dL Normal 6.3-8.0 [facility] Comment on above: Order Comment: Speci men Type: BLOOD SPECIMENOrdering Facility: [facility] Address: [address] [place] [address] Performed By: #### 2 4323-8, LIPNF ####[facility] LABIA [id number] [place] [address] [place] Sodium [Moles/Vol] 138 mmol/L Normal 136-144 [facility] Comment on above: Order Comment: Speci men Type: BLOOD SPECIMENOrdering Facility: [facility] Address: [address] [place] [address] Performed By: #### 2 4323-8, LIPNF ####[facility]CL[facility] [id number] [place] [id number] [place] Urea nitrogen [Mass/Vol] 14 mg/dL Normal 9-24 [facility] Comment on above: Order Comment: Speci men Type: BLOOD SPECIMENOrdering Facility: [facility] Address: [address] [place] [address] Performed By: #### 2 4323-8, LIPNF ####[facility]CLIA [id number] [place] [id number] [place] HbA1c (Bld)on 02-14-2025 Average glucose Estimated from glycated hemoglobin (Bld) [Mass/Vol] 151 mg/dL Normal [facility] Comment on above: Order Comment: Vera monterroso Type: BLOOD SPECIMENOrdering Facility: [facility] Address: [address] [place] [address] Result Comment: eAG: (Estimated average glucose) is a calculated value from HgbA1c and is medical sales representative of the average blood glucose level in the last 2-3 month period. Performed By: #### 5 5454-3 ####[facility]CL[facility] [id number] [place] [address] [place] HbA1c (Bld) [Mass fraction] 6.9 % High 4.3-5.6 [facility] Comment on above: Order Comment: Vera monterroso Type: BLOOD SPECIMENOrdering Facility: [facility] Address: [address] [place] [address] Result Comment: [place] Diabetes Association guidelines indicate that patients with HgbA1c in the range 5.7-6.4% are at increased risk for development of diabetes, and intervention by lifestyle modification may be beneficial. HgbA1c greater or equal to 6.5% is considered diagnostic of diabetes. Performed By: #### 5 5454-3 ####[facility]CL[facility] [id number] [place] [address] [place] LIPID PANEL, NONFASTINGon Cholesterol [Mass/Vol] 210 mg/dL High <200 [facility] Comment on above: Order Comment: Vera men Type: BLOOD SPECIMENOrdering Facility: [facility] Address: [address] [place] [address] Result Comment: <200 mg/dL, Desirable 200-239 mg/dL, Borderline high >239 mg/dL, High Performed By: #### 2 4323-8, LIPNF ####[facility]CLIA [id number] [place] [id number] [place] HDL CHOLESTEROL, NF 40 mg/dL Normal >39 [facility] Comment on above: Order Comment: Speci men Type: BLOOD SPECIMENOrdering Facility: [facility] Address: [address] [place] [address] Result Comment: 40-5 9 mg/dL, Acceptable >59 mg/dL, High: Negative risk factor for coronary heart disease <40 mg/dL, Low: Positive risk factor for coronary heart disease Performed By: #### 2 4323-8, LIPNF ####[facility]CL[facility] [id number] [address] [place] LDL CHOLESTEROL CALCULATED, NF 120 mg/dL High <100 [facility] Comment on above: Order Comment: Speci men Type: BLOOD SPECIMENOrdering Facility: [facility] Address: [address] [place] [address] Result Comment: <100 mg/dL, Optimal 100-129 mg/dL, Near optimal/above optimal 130-159 mg/dL, Borderline high 160-189 mg/dL, High >189 mg/dL, Very high Secondary prevention optimal LDL Cholesterol levels are recommended to be <70 mg/dL LDL cholesterol is calculated using the Fuller-NIH equation. Performed By: #### 2 4323-8, LIPNF ####[facility]CLIA [id number] [address] OF [facility] LDL/HDL RATIO, NF 3.00 mg/dL High <2.54 [facility] Comment on above: Order Comment: Speci men Type: BLOOD SPECIMENOrdering Facility: [facility] Address: [address] [place] [address] Result Comment: Refe lalithace: 1. National Cholesterol Education Program ATP III Guideline At-A-Glance Quick Desk Reference: National Heart, Lung, and Blood Dodge. National Institutes of Health. 2001: NIH Publication No. 01-3305. 2. An International Atherosclerosis Society position paper: global recommendations for the management of dyslipidemia: executive summary, Atherosclerosis. 2014: 232(2):410-413. Performed By: #### 2 4323-8, LIPNF ####[facility] LABCLIA [id number] [address] [place] [address] [place] NON HDL CHOL, NF 170 mg/dL High <130 [facility] Comment on above: Order Comment: Speci men Type: BLOOD SPECIMENOrdering Facility: [facility] Address: [address] [place] [address] Result Comment: <130 mg/dL, Optimal 130-159 mg/dL, Near optimal/above optimal 160-189 mg/dL, Borderline high 190-219 mg/dL, High >219 mg/dL, Very high Secondary prevention optimal non HDL Cholesterol levels are recommended to be <100 mg/dL Performed By: #### 2 4323-8, LIPNF ####[facility]CL[facility] [id number] [place] [address] [place] T CHOL/HDL RATIO NF 5.25 mg/dL High <5.10 [facility] Comment on above: Order Comment: Speci men Type: BLOOD SPECIMENOrdering Facility: [facility] Address: [address] [place] [address] Performed By: #### 2 4323-8, LIPNF ####[facility]CL[facility] [id number] [place] [address] [place] TRIGLYCERIDES, NF 282 mg/dL High <150 [facility] Comment on above: Order Comment: Speci men Type: BLOOD SPECIMENOrdering Facility: [facility] Address: [address] [place] [address] Result Comment: <150 mg/dL, Normal 150-199 mg/dL, Borderline high 200-499 mg/dL, High >499 mg/dL, Very high Performed By: #### 2 4323-8, LIPNF ####[facility]CL[facility] [id number] [place] [address] [place] VLDL CHOLESTEROL, NF 49 mg/dL High <30 [facility] Comment on above: Order Comment: Speci men Type: BLOOD SPECIMENOrdering Facility: [facility] Address: [address] [place] [address] Performed By: #### 2 4323-8, LIPNF ####[facility] LABIA [id number] [place] [address] [place] PSA/PROSTATE SPECIFIC ANTIGE N SCREENINGon 02-14-2025 Prostate specific Ag [Mass/Vol] ng/mL Normal <2.60 [facility] Comment on above: Order Comment: Speci men Type: BLOOD SPECIMENOrdering Facility: [facility] Address: [address] [place] [address] Result Comment: Tota l PSA test methodology used is the Electrochemiluminescence Immunoassay by [employer]. Total PSA values by differing methodologies cannot be interchanged. Performed By: #### P SAS1 ####[facility] LABIA [id number] [place] [address] [place] Urinalysis complete panel (U )on 02-14-2025 Bacteria LM.HPF (Urine sed) [#/Area] Negative Normal Negative [facility] Comment on above: Order Comment: Speci men Type: URINE SPECIMENOrdering Facility: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 [address] [place], [address] PLT Normal 150-[address] [facility] Comment on above: Result Comment: Canc elled via OM: Order cancelled - Patient discharged Performed By: #### L 100.0100, L500.2500 ####[facility] [address] [place], [address] RBC Normal 4.6-6.[address] [facility] Comment on above: Result Comment: Canc elled via OM: Order cancelled - Patient discharged Performed By: #### L 100.0100, L500.2500 ####[facility] [address] [place], [address] RDW CV Normal 11.6-14.[address] [facility] Comment on above: Result Comment: Canc elled via OM: Order cancelled - Patient discharged Performed By: #### L 100.0100, L500.2500 ####[facility] [address] [place], [address] RDW SD Normal 35.1-43.[address] [facility] Comment on above: Result Comment: Canc elled via OM: Order cancelled - Patient discharged Performed By: #### L 100.0100, L500.2500 ####[facility] [address] [place], [address] WBC Normal 4.4-11.[address] [facility] Comment on above: Result Comment: Canc elled via OM: Order cancelled - Patient discharged Performed By: #### L 100.0100, L500.2500 ####[facility] [address] [place], [address] Basic Metabolic Profile (BMP )on 05-02-2024 BUN Normal - [facility] Comment on above: Result Comment: Canc elled via OM: Order cancelled - Patient discharged Performed By: #### L 500.2500, L100.0100 #### [facility] [address] [place], [address] BUN/CRE Normal - [facility] Comment on above: Result Comment: Canc elled via OM: Order cancelled - Patient discharged Performed By: #### L 500.2500, L100.0100 #### [facility] [address] [place], [address] CA,Total Normal 8.5-10.[address] [facility] Comment on above: Result Comment: Canc elled via OM: Order cancelled - Patient discharged Performed By: #### L 500.2500, L100.0100 #### [facility] [address] [place], [address] CL Normal 98-[address] [facility] Comment on above: Result Comment: Canc elled via OM: Order cancelled - Patient discharged Performed By: #### L 500.2500, L100.0100 #### [facility] [address] [place], [address] CO2 Normal 21.0-32.[address] [facility] Comment on above: Result Comment: Canc elled via OM: Order cancelled - Patient discharged Performed By: #### L 500.2500, L100.0100 #### [facility] [address] [place], [address] CREAT,SERUM Normal 0.70-1.[address] [facility] Comment on above: Result Comment: Canc elled via OM: Order cancelled - Patient discharged Performed By: #### L 500.2500, L100.0100 #### [facility] [address] [place], [address] EST GFR Normal >[address] [facility] Comment on above: Result Comment: Canc elled via OM: Order cancelled - Patient discharged Performed By: #### L 500.2500, L100.0100 #### [facility] [address] [place], [address] EST GFR - AA Normal >[address] [facility] Comment on above: Result Comment: Canc elled via OM: Order cancelled - Patient discharged Performed By: #### L 500.2500, L100.0100 #### [facility] [address] [place], [address] GAP Normal 5-[address] [facility] Comment on above: Result Comment: Canc elled via OM: Order cancelled - Patient discharged Performed By: #### L 500.2500, L100.0100 #### [facility] [address] [place], [address] GLU Normal 74-[address] [facility] Comment on above: Result Comment: Canc elled via OM: Order cancelled - Patient discharged Performed By: #### L 500.2500, L100.0100 #### [facility] [address] [place], [address] Potassium Normal 3.5-5.[address] [facility] Comment on above: Result Comment: Canc elled via OM: Order cancelled - Patient discharged Performed By: #### L 500.2500, L100.0100 #### [facility] [address] [place], [address] Basic Metabolic Profile (BMP) Normal 136-[address] [facility] Comment on above: Result Comment: Canc elled via OM: Order cancelled - Patient discharged Performed By: #### L 500.2500, L100.0100 #### [facility] [address] [place], [address] CBC W/Diff, Automatedon 10- Absolute Neut Normal 2.0-7.[address] [facility] Comment on above: Result Comment: Canc elled via OM: Order cancelled - Patient discharged Performed By: #### L 500.2500, L100.0100 #### [facility] [address] [place], [address] HCT Normal 40-[address] [facility] Comment on above: Result Comment: Canc elled via OM: Order cancelled - Patient discharged Performed By: #### L 500.2500, L100.0100 #### [facility] [address] [place], [address] HGB Normal 13.0-16.[address] [facility] Comment on above: Result Comment: Canc elled via OM: Order cancelled - Patient discharged Performed By: #### L 500.2500, L100.0100 #### [facility] [address] [place], [address] MCH Normal 27.0-32.[address] [facility] Comment on above: Result Comment: Canc elled via OM: Order cancelled - Patient discharged Performed By: #### L 500.2500, L100.0100 #### [facility] [address] [place], [address] MCHC Normal 32-[address] [facility] Comment on above: Result Comment: Canc elled via OM: Order cancelled - Patient discharged Performed By: #### L 500.2500, L100.0100 #### [facility] [address] [place], [address] MCV Normal 80-[address] [facility] Comment on above: Result Comment: Canc elled via OM: Order cancelled - Patient discharged Performed By: #### L 500.2500, L100.0100 #### [facility] [address] [place], [address] NEUT% Normal 47-[address] [facility] Comment on above: Result Comment: Canc elled via OM: Order cancelled - Patient discharged Performed By: #### L 500.2500, L100.0100 #### [facility] [address] [place], [address] PLT Normal 150-[address] [facility] Comment on above: Result Comment: Canc elled via OM: Order cancelled - Patient discharged Performed By: #### L 500.2500, L100.0100 #### [facility] [address] [place], [address] RBC Normal 4.6-6.[address] [facility] Comment on above: Result Comment: Canc elled via OM: Order cancelled - Patient discharged Performed By: #### L 500.2500, L100.0100 #### [facility] [address] [place], [address] RDW CV Normal 11.6-14.[address] [facility] Comment on above: Result Comment: Canc elled via OM: Order cancelled - Patient discharged Performed By: #### L 500.2500, L100.0100 #### [facility] [address] [place], [address] RDW SD Normal 35.1-43.[address] [facility] Comment on above: Result Comment: Canc elled via OM: Order cancelled - Patient discharged Performed By: #### L 500.2500, L100.0100 #### [facility] [address] [place], [address] WBC Normal 4.4-11.[address] [facility] Comment on above: Result Comment: Canc elled via OM: Order cancelled - Patient discharged Performed By: #### L 500.2500, L100.0100 #### [facility] [address] [place], [address] Basic Metabolic Profile (BMP )on 04-25-2024 BUN/CRE 17.0 RATIO Normal -[address] [facility] Comment on above: Order Comment: 101.1 Performed By: #### L 500.2500 #### [facility] [address] [place], [address] CA,Total 9.7 mg/dL Normal 8.5-10.[address] [facility] Comment on above: Order Comment: 101.1 Performed By: #### L 500.2500 #### [facility] [address] [place], [address] Chloride [Moles/Vol] 106 mmol/L Normal 98-107 [facility] Comment on above: Order Comment: 101.1 Performed By: #### L 500.2500 #### [facility] [address] [place], [address] CO2 [Moles/Vol] 27.0 mmol/L Normal 21.0-32.[address] [facility] Comment on above: Order Comment: 101.1 Performed By: #### L 500.2500 #### [facility] [address] [place], [address] Creatinine [Mass/Vol] 0.76 mg/dL Normal 0.70-1.30 [facility] Comment on above: Order Comment: 101.1 Result Comment: The validity of the calculated GFR GFRAA in patients over 70 years has not been determined. Clinical correlation is essential. Performed By: #### L 500.2500 #### [facility] [address] [place], [address] EST GFR - AA 125 mL/min Normal >[address] [facility] Comment on above: Order Comment: 101.1 Result Comment: Afri can [place] GFR Calc Performed By: #### L 500.2500 #### [facility] [address] [place], [address] GAP 5 Normal 5-[address] [facility] Comment on above: Order Comment: 101.1 Performed By: #### L 500.2500 #### [facility] [address] [place], [address] GFR/1.73 sq M.predicted among non-blacks MDRD (S/P/Bld) [Vol rate/Area] 103 mL/min/{1.73_m2} Normal >[address] [facility] Comment on above: Order Comment: 101.1 Result Comment: Non- GFR Calc Performed By: #### L 500.2500 #### [facility] [address] [place], [address] Glucose [Mass/Vol] 142 mg/dL High 74-106 [facility] Comment on above: Order Comment: 101.1 Result Comment: Fast ing Glucose result greater than or equal to 126 mg/dL suggests DIABETES MELLITUS per A.D.A. criteria. Performed By: #### L 500.2500 #### [facility] [address] [place], [address] Potassium [Moles/Vol] 3.8 mmol/L Normal 3.5-5.1 [facility] Comment on above: Order Comment: 101.1 Result Comment: Mode rate Hemolysis, Result may be falsely increased. Performed By: #### L 500.2500 #### [facility] [address] [place], [address] Sodium [Moles/Vol] 139 mmol/L Normal 136-145 [facility] Comment on above: Order Comment: 101.1 Performed By: #### L 500.2500 #### [facility] [address] [place], [address] Urea nitrogen [Mass/Vol] 13 mg/dL Normal 7-[address] [facility] Comment on above: Order Comment: 101.1 Performed By: #### L 500.2500 #### [facility] [address] [place], [address] BUN Normal 7-[address] [facility] Comment on above: Result Comment: Canc elled via OM: Order cancelled - Patient discharged Performed By: #### L 500.2500, L100.0100 #### [facility] [address] [place], [address] BUN/CRE Normal 10-[address] [facility] Comment on above: Result Comment: Canc elled via OM: Order cancelled - Patient discharged Performed By: #### L 500.2500, L100.0100 #### [facility] [address] [place], [address] CA,Total Normal 8.5-10.[address] [facility] Comment on above: Result Comment: Canc elled via OM: Order cancelled - Patient discharged Performed By: #### L 500.2500, L100.0100 #### [facility] [address] [place], [address] CL Normal 98-[address] [facility] Comment on above: Result Comment: Canc elled via OM: Order cancelled - Patient discharged Performed By: #### L 500.2500, L100.0100 #### [facility] [address] [place], [address] CO2 Normal 21.0-32.[address] [facility] Comment on above: Result Comment: Canc elled via OM: Order cancelled - Patient discharged Performed By: #### L 500.2500, L100.0100 #### [facility] [address] [place], [address] CREAT,SERUM Normal 0.70-1.[address] [facility] Comment on above: Result Comment: Canc elled via OM: Order cancelled - Patient discharged Performed By: #### L 500.2500, L100.0100 #### [facility] [address] [place], [address] EST GFR Normal >[address] [facility] Comment on above: Result Comment: Canc elled via OM: Order cancelled - Patient discharged Performed By: #### L 500.2500, L100.0100 #### [facility] [address] [place], [address] EST GFR - AA Normal >[address] [facility] Comment on above: Result Comment: Canc elled via OM: Order cancelled - Patient discharged Performed By: #### L 500.2500, L100.0100 #### [facility] [address] [place], [address] GAP Normal 5-[address] [facility] Comment on above: Result Comment: Canc elled via OM: Order cancelled - Patient discharged Performed By: #### L 500.2500, L100.0100 #### [facility] [address] [place], [address] GLU Normal 74-[address] [facility] Comment on above: Result Comment: Canc elled via OM: Order cancelled - Patient discharged Performed By: #### L 500.2500, L100.0100 #### [facility] [address] [place], [address] Potassium Normal 3.5-5.[address] [facility] Comment on above: Result Comment: Canc elled via OM: Order cancelled - Patient discharged Performed By: #### L 500.2500, L100.0100 #### [facility] [address] [place], [address] Basic Metabolic Profile (BMP) Normal 136-[address] [facility] Comment on above: Result Comment: Canc elled via OM: Order cancelled - Patient discharged Performed By: #### L 500.2500, L100.0100 #### [facility] [address] [place], [address] CBC W/Diff, Automatedon 10-1 Absolute Neut Normal 2.0-7.[address] [facility] Comment on above: Result Comment: Canc elled via OM: Order cancelled - Patient discharged Performed By: #### L 500.2500, L100.0100 #### [facility] [address] [place], [address] HCT Normal 40-[address] [facility] Comment on above: Result Comment: Canc elled via OM: Order cancelled - Patient discharged Performed By: #### L 500.2500, L100.0100 #### [facility] [address] [place], [address] HGB Normal 13.0-16.[address] [facility] Comment on above: Result Comment: Canc elled via OM: Order cancelled - Patient discharged Performed By: #### L 500.2500, L100.0100 #### [facility] [address] [place], [address] MCH Normal 27.0-32.[address] [facility] Comment on above: Result Comment: Canc elled via OM: Order cancelled - Patient discharged Performed By: #### L 500.2500, L100.0100 #### [facility] [address] [place], [address] MCHC Normal 32-[address] [facility] Comment on above: Result Comment: Canc elled via OM: Order cancelled - Patient discharged Performed By: #### L 500.2500, L100.0100 #### [facility] [address] [place], [address] MCV Normal 80-[address] [facility] Comment on above: Result Comment: Canc elled via OM: Order cancelled - Patient discharged Performed By: #### L 500.2500, L100.0100 #### [facility] [address] [place], [address] NEUT% Normal 47-[address] [facility] Comment on above: Result Comment: Canc elled via OM: Order cancelled - Patient discharged Performed By: #### L 500.2500, L100.0100 #### [facility] [address] [place], [address] PLT Normal 150-[address] [facility] Comment on above: Result Comment: Canc elled via OM: Order cancelled - Patient discharged Performed By: #### L 500.2500, L100.0100 #### [facility] [address] [place], [address] RBC Normal 4.6-6.[address] [facility] Comment on above: Result Comment: Canc elled via OM: Order cancelled - Patient discharged Performed By: #### L 500.2500, L100.0100 #### [facility] [address] [place], [address] RDW CV Normal 11.6-14.[address] [facility] Comment on above: Result Comment: Canc elled via OM: Order cancelled - Patient discharged Performed By: #### L 500.2500, L100.0100 #### [facility] [address] [place], [address] RDW SD Normal 35.1-43.[address] [facility] Comment on above: Result Comment: Canc elled via OM: Order cancelled - Patient discharged Performed By: #### L 500.2500, L100.0100 #### [facility] [address] [place], [address] WBC Normal 4.4-11.[address] [facility] Comment on above: Result Comment: Canc elled via OM: Order cancelled - Patient discharged Performed By: #### L 500.2500, L100.0100 #### [facility] [address] [place], [address] CBC W Auto Differential pane l (Bld)on 02-13-2023 Basophils (Bld) [#/Vol] 0.04 10*3/uL <0.11 k/uL [facility] Basophils/100 WBC (Bld) 0.9 % [facility] Differential cell count method Nom (Bld) Auto [facility] Eosinophils (Bld) [#/Vol] 0.14 10*3/uL <0.46 k/uL [facility] Eosinophils/100 WBC (Bld) 3.3 % [facility] Erythrocyte distribution width (RBC) [Ratio] 12.1 % 11.5 - 15.0 % [facility] Hematocrit (Bld) [Volume fraction] 36.7 % Low 39.0 - 51.0 % [facility] Hemoglobin (Bld) [Mass/Vol] 12.8 g/dL Low 13.0 - 17.0 g/dL [facility] Immature granulocytes (Bld) [#/Vol] <0.10 k/uL [facility] Immature granulocytes/100 WBC (Bld) 0.2 % [facility] Lymphocytes (Bld) [#/Vol] 1.23 10*3/uL 1.00 - 4.00 k/uL [facility] Lymphocytes/100 WBC (Bld) 28.7 % [facility] MCH (RBC) [Entitic mass] 33.6 pg 26.0 - 34.0 pg [facility] MCHC (RBC) [Mass/Vol] 34.9 g/dL 30.5 - 36.0 g/dL [facility] MCV (RBC) [Entitic vol] 96.3 fL 80.0 - 100.0 fL [facility] Monocytes (Bld) [#/Vol] 0.34 10*3/uL <0.87 k/uL [facility] Monocytes/100 WBC (Bld) 7.9 % [facility] Neutrophils (Bld) [#/Vol] 2.52 10*3/uL 1.45 - 7.50 k/uL [facility] Neutrophils/100 WBC (Bld) 59.0 % [facility] Nucleated RBC (Bld) [#/Vol] <0.01 k/uL [facility] Nucleated RBC/100 WBC (Bld) [Ratio] 0.0 /100 WBC [facility] Platelet mean volume (Bld) [Entitic vol] 9.3 fL 9.0 - 12.7 fL [facility] Platelets (Bld) [#/Vol] 226 10*3/uL 150 - 400 k/uL [facility] RBC (Bld) [#/Vol] 3.81 10*6/uL Low 4.20 - 6.0 0 m/uL [facility] WBC (Bld) [#/Vol] 4.28 10*3/uL 3.70 - 11.00 k/uL [facility] No Panel InformationOrdered By: SWATI Foley on 09-28-2022 Prostate Specific Antigen Total < 0.01 ng/mL 0.0-4.[address] [facility] Comment on above: This test was perfor med using the TPSA assay method for the[employer] chemistry system. Values obtained with differentassay methods cannot be used interchangably.When changing PSA assays in the course of monitoring apatient, additional sequential testing should be carriedout to confirm baseline values. Vital Signs Date Time Vital Sign Value Performing Clinician Facility 05-21-2025 23:11-0500 SaO2% (BldA) [Mass fraction] 92 % MARISOL RIBEIRO [facility] Comment on above: Order Comment: Specimen Type: ARTERIAL B LOOD SPECIMENOrdering Facility: [facility] Address: [address] [place] [address] Performed By: #### A LL ####[facility] LABCLIA [id number] [place] [address] [place] 04-09-2025 13:36-0400 Body height 165.1 cm Tegan WEAVER Work Phone: [facility] 04-09-2025 13:36-0400 Body mass index (BMI) [Ratio] 25.4 kg/m2 Tegan WEAVER Work Phone: [facility] 04-09-2025 13:36-0400 Body weight 69.39 kg Tegan Podlogar [employer] Work Phone: [facility] 04-09-2025 13:36-0400 Diastolic blood pressure 61 mm[Hg] Tegan Podlogar [employer] Work Phone: [facility] 04-09-2025 13:36-0400 Heart rate 63 /min Tegan Podlogar [employer] Work Phone: [facility] 04-09-2025 13:36-0400 Respiratory rate 16 /min Tegan Podlogar [employer] Work Phone: [facility] 04-09-2025 13:36-0400 Systolic blood pressure 106 mm[Hg] Tegan Podlogar [employer] Work Phone: [facility] 02-07-2025 11:27-0400 Body mass index (BMI) [Ratio] 26.46 kg/m2 Marisol Ribeiro MD Work Phone: [facility] 02-07-2025 11:27-0400 Body weight 72.12 kg Marisol Ribeiro MD Work Phone: [facility] 02-07-2025 11:27-0400 Diastolic blood pressure 62 mm[Hg] Marisol Ribeiro MD Work Phone: [facility] 02-07-2025 11:27-0400 Heart rate 78 /min Marisol Ribeiro MD Work Phone: [facility] 02-07-2025 11:27-0400 Respiratory rate 18 /min Marisol Ribeiro MD Work Phone: [facility] 02-07-2025 11:27-0400 SaO2% (BldA) [Mass fraction] 96 % Marisol Ribeiro MD Work Phone: [facility] 02-07-2025 11:27-0400 Systolic blood pressure 122 mm[Hg] Marisol Ribeiro MD Work Phone: [facility] 07-30-2024 10:53-0500 Body mass index (BMI) [Ratio] 24.86 kg/m2 Marisol Ribeiro MD Work Phone: [facility] 07-30-2024 10:53-0500 Body weight 67.77 kg Marisol Ribeiro MD Work Phone: [facility] 07-30-2024 10:53-0500 Diastolic blood pressure 66 mm[Hg] Marisol Ribeiro MD Work Phone: [facility] 07-30-2024 10:53-0500 Heart rate 87 /min Marisol Ribeiro MD Work Phone: [facility] 07-30-2024 10:53-0500 Respiratory rate 18 /min Marisol Ribeiro MD Work Phone: [facility] 07-30-2024 10:53-0500 SaO2% (BldA) [Mass fraction] 99 % Marisol Ribeiro MD Work Phone: [facility] 07-30-2024 10:53-0500 Systolic blood pressure 130 mm[Hg] Marisol Ribeiro MD Work Phone: [facility] 06-30-2024 12:24-0500 Body mass index (BMI) [Ratio] 24.4 kg/m2 Tegan Podlogar RESIDENT PROGRAMS ASSISTANT.CLINICAL LABORATORY SCIENCE PROFESSOR Work Phone: [facility] 06-30-2024 12:24-0500 Body temperature 97.39 [degF] Tegan Podlogar RESIDENT PROGRAMS ASSISTANT.CLINICAL LABORATORY SCIENCE PROFESSOR Work Phone: [facility] 06-30-2024 12:24-0500 Body weight 66.5 kg Tegan Podlogar RESIDENT PROGRAMS ASSISTANT.CLINICAL LABORATORY SCIENCE PROFESSOR Work Phone: [facility] 06-30-2024 12:24-0500 Diastolic blood pressure 72 mm[Hg] Tegan Podlogar RESIDENT PROGRAMS ASSISTANT.CLINICAL LABORATORY SCIENCE PROFESSOR Work Phone: [facility] 06-30-2024 12:24-0500 Heart rate 75 /min Tegan Podlogar RESIDENT PROGRAMS ASSISTANT.CLINICAL LABORATORY SCIENCE PROFESSOR Work Phone: [facility] 06-30-2024 12:24-0500 Respiratory rate 18 /min Tegan Podlogar RESIDENT PROGRAMS ASSISTANT.CLINICAL LABORATORY SCIENCE PROFESSOR Work Phone: [facility] 06-30-2024 12:24-0500 SaO2% (BldA) [Mass fraction] 97 % Tegan Podlogar RESIDENT PROGRAMS ASSISTANT.CLINICAL LABORATORY SCIENCE PROFESSOR Work Phone: [facility] 06-30-2024 12:24-0500 Systolic blood pressure 120 mm[Hg] Tegan Podlogar RESIDENT PROGRAMS ASSISTANT.CLINICAL LABORATORY SCIENCE PROFESSOR Work Phone: [facility] 11-14-2023 15:26-0400 Body mass index (BMI) [Ratio] 26.66 kg/m2 Tegan Podlogar RESIDENT PROGRAMS ASSISTANT.CLINICAL LABORATORY SCIENCE PROFESSOR Work Phone: [facility] 11-14-2023 15:26-0400 Body weight 72.67 kg Tegan Podlogar RESIDENT PROGRAMS ASSISTANT.CLINICAL LABORATORY SCIENCE PROFESSOR Work Phone: [facility] 11-14-2023 15:26-0400 Diastolic blood pressure 74 mm[Hg] Tegan Podlogar RESIDENT PROGRAMS ASSISTANT.CLINICAL LABORATORY SCIENCE PROFESSOR Work Phone: [facility] 11-14-2023 15:26-0400 Heart rate 82 /min Tegan Podlogar RESIDENT PROGRAMS ASSISTANT.CLINICAL LABORATORY SCIENCE PROFESSOR Work Phone: [facility] 11-14-2023 15:26-0400 Respiratory rate 18 /min Tegan Podlogar RESIDENT PROGRAMS ASSISTANT.CLINICAL LABORATORY SCIENCE PROFESSOR Work Phone: [facility] 11-14-2023 15:26-0400 SaO2% (BldA) [Mass fraction] 96 % Tegan Podlogar RESIDENT PROGRAMS ASSISTANT.CLINICAL LABORATORY SCIENCE PROFESSOR Work Phone: [facility] 11-14-2023 15:26-0400 Systolic blood pressure 122 mm[Hg] Tegan Podlogar RESIDENT PROGRAMS ASSISTANT.CLINICAL LABORATORY SCIENCE PROFESSOR Work Phone: [facility] 05-16-2023 15:02-0400 Body weight 70.22 kg Tegan Podlogar RESIDENT PROGRAMS ASSISTANT.CLINICAL LABORATORY SCIENCE PROFESSOR Work Phone: [facility] 05-16-2023 15:02-0400 Diastolic blood pressure 66 mm[Hg] Tegan Podlogar RESIDENT PROGRAMS ASSISTANT.CLINICAL LABORATORY SCIENCE PROFESSOR Work Phone: [facility] 05-16-2023 15:02-0400 Heart rate 79 /min Tegan Podlogar RESIDENT PROGRAMS ASSISTANT.CLINICAL LABORATORY SCIENCE PROFESSOR Work Phone: [facility] 05-16-2023 15:02-0400 Respiratory rate 18 /min Tegan Podlogar RESIDENT PROGRAMS ASSISTANT.CLINICAL LABORATORY SCIENCE PROFESSOR Work Phone: [facility] 05-16-2023 15:02-0400 SaO2% (BldA) [Mass fraction] 98 % Tegan Podlogar RESIDENT PROGRAMS ASSISTANT.CLINICAL LABORATORY SCIENCE PROFESSOR Work Phone: [facility] 05-16-2023 15:02-0400 Systolic blood pressure 112 mm[Hg] Tegan Podlogar RESIDENT PROGRAMS ASSISTANT.CLINICAL LABORATORY SCIENCE PROFESSOR Work Phone: [facility] 02-13-2023 13:14-0400 Body height 165.1 cm Tegan Podlogar RESIDENT PROGRAMS ASSISTANT.CLINICAL LABORATORY SCIENCE PROFESSOR Work Phone: [facility] 02-13-2023 13:14-0400 Body weight 72.48 kg Tegan Podlogar RESIDENT PROGRAMS ASSISTANT.CLINICAL LABORATORY SCIENCE PROFESSOR Work Phone: [facility] 02-13-2023 13:14-0400 Diastolic blood pressure 64 mm[Hg] Tegan Podlogar RESIDENT PROGRAMS ASSISTANT.CLINICAL LABORATORY SCIENCE PROFESSOR Work Phone: [facility] 02-13-2023 13:14-0400 Heart rate 60 /min Tegan Podlogar RESIDENT PROGRAMS ASSISTANT.CLINICAL LABORATORY SCIENCE PROFESSOR Work Phone: [facility] 02-13-2023 13:14-0400 Respiratory rate 16 /min Tegan Podlogar RESIDENT PROGRAMS ASSISTANT.CLINICAL LABORATORY SCIENCE PROFESSOR Work Phone: [facility] 02-13-2023 13:14-0400 Systolic blood pressure 110 mm[Hg] Tegan Podlogar RESIDENT PROGRAMS ASSISTANT.CLINICAL LABORATORY SCIENCE PROFESSOR Work Phone: [facility] 01-30-2023 13:21-0400 Body mass index (BMI) [Ratio] 25.2 kg/m2 Dr. Jude Ribeiro Work Phone: [facility] 01-30-2023 13:21-0400 Body weight 70.[address] Jude Ribeiro Work Phone: [facility] 01-30-2023 13:09-0400 Body height 167.[address] Jude Ribeiro Work Phone: [facility] 01-30-2023 13:09-0400 Body temperature 97.8 [degF] Dr. Jude Ribeiro Work Phone: [facility] 01-30-2023 13:09-0400 Diastolic blood pressure 76 mm[Hg] Dr. Jude Ribeiro Work Phone: [facility] 01-30-2023 13:09-0400 Heart rate 80 /min Dr. Jude Ribeiro Work Phone: [facility] 01-30-2023 13:09-0400 Respiratory rate 14 /min Dr. Jude Ribeiro Work Phone: [facility] 01-30-2023 13:09-0400 SaO2% (BldA) [Mass fraction] 98 % Dr. Jude Ribeiro Work Phone: [facility] 01-30-2023 13:09-0400 Systolic blood pressure 125 mm[Hg] Dr. Jude Ribeiro Work Phone: [facility] 11-13-2022 14:00-0400 Body weight 72.39 kg Tegan Podlogar RESIDENT PROGRAMS ASSISTANT.CLINICAL LABORATORY SCIENCE PROFESSOR Work Phone: [facility] 11-13-2022 14:00-0400 Diastolic blood pressure 68 mm[Hg] Tegan Podlogar RESIDENT PROGRAMS ASSISTANT.CLINICAL LABORATORY SCIENCE PROFESSOR Work Phone: [facility] 11-13-2022 14:00-0400 Heart rate 68 /min Tegan Podlogar RESIDENT PROGRAMS ASSISTANT.CLINICAL LABORATORY SCIENCE PROFESSOR Work Phone: [facility] 11-13-2022 14:00-0400 Respiratory rate 18 /min Tegan Podlogar RESIDENT PROGRAMS ASSISTANT.CLINICAL LABORATORY SCIENCE PROFESSOR Work Phone: [facility] 11-13-2022 14:00-0400 SaO2% (BldA) [Mass fraction] 99 % Tegan Podlogar RESIDENT PROGRAMS ASSISTANT.CLINICAL LABORATORY SCIENCE PROFESSOR Work Phone: [facility] 11-13-2022 14:00-0400 Systolic blood pressure 122 mm[Hg] Tegan Podlogar RESIDENT PROGRAMS ASSISTANT.CLINICAL LABORATORY SCIENCE PROFESSOR Work Phone: [facility] 10-30-2022 14:37-0400 Body mass index (BMI) [Ratio] 26.4 kg/m2 Dr. Jude Ribeiro Work Phone: [facility] 10-30-2022 14:37-0400 Body weight 72.[address] Jude Ribeiro Work Phone: [facility] 10-30-2022 14:37-0400 Diastolic blood pressure 72 mm[Hg] Dr. Jude Ribeiro Work Phone: [facility] 10-30-2022 14:37-0400 Heart rate 78 /min Dr. Jude Ribeiro Work Phone: [facility] 10-30-2022 14:37-0400 Respiratory rate 18 /min Dr. Jude Ribeiro Work Phone: [facility] 10-30-2022 14:37-0400 SaO2% (BldA) [Mass fraction] 99 % Dr. Jude Ribeiro Work Phone: [facility] 10-30-2022 14:37-0400 Systolic blood pressure 130 mm[Hg] Dr. Jude Ribeiro Work Phone: [facility] 09-05-2022 13:59-0500 Body weight 74.75 kg Tegan Podlogar RESIDENT PROGRAMS ASSISTANT.CLINICAL LABORATORY SCIENCE PROFESSOR Work Phone: [facility] 09-05-2022 13:59-0500 Diastolic blood pressure 72 mm[Hg] Tegan Podlogar RESIDENT PROGRAMS ASSISTANT.CLINICAL LABORATORY SCIENCE PROFESSOR Work Phone: [facility] 09-05-2022 13:59-0500 Heart rate 80 /min Tegan Podlogar RESIDENT PROGRAMS ASSISTANT.CLINICAL LABORATORY SCIENCE PROFESSOR Work Phone: [facility] 09-05-2022 13:59-0500 Respiratory rate 16 /min Tegan Podlogar RESIDENT PROGRAMS ASSISTANT.CLINICAL LABORATORY SCIENCE PROFESSOR Work Phone: [facility] 09-05-2022 13:59-0500 SaO2% (BldA) [Mass fraction] 100 % Tegan Herreralogangela RESIDENT PROGRAMS ASSISTANT.CLINICAL LABORATORY SCIENCE PROFESSOR Work Phone: [facility] 09-05-2022 13:59-0500 Systolic blood pressure 120 mm[Hg] Tegan Wing RESIDENT PROGRAMS ASSISTANT.CLINICAL LABORATORY SCIENCE PROFESSOR Work Phone: [facility] 09-02-2022 14:35-0500 Body temperature 97.8 [degF] Dr. Jude Ribeiro Work Phone: [facility] 09-02-2022 14:35-0500 Diastolic blood pressure 78 mm[Hg] Dr. Jude Ribeiro Work Phone: [facility] 09-02-2022 14:35-0500 Heart rate 78 /min Dr. Jude Ribeiro Work Phone: [facility] 09-02-2022 14:35-0500 Respiratory rate 16 /min Dr. Jude Ribeiro Work Phone: [facility] 09-02-2022 14:35-0500 SaO2% (BldA) [Mass fraction] 99 % Dr. Jude Ribeiro Work Phone: [facility] 09-02-2022 14:35-0500 Systolic blood pressure 126 mm[Hg] Dr. Jude Ribeiro Work Phone: [facility] 09-02-2022 11:41-0500 Body height 165.[address] Jude Ribeiro Work Phone: [facility] 09-02-2022 11:41-0500 Body mass index (BMI) [Ratio] 29.1 kg/m2 Dr. Jude Ribeiro Work Phone: [facility] 09-02-2022 11:41-0500 Body weight 79.[address] Jude Ribeiro Work Phone: [facility] 08-22-2022 12:56-0500 Body weight 73.85 kg Tegan Podlogar RESIDENT PROGRAMS ASSISTANT.CLINICAL LABORATORY SCIENCE PROFESSOR Work Phone: [facility] 08-22-2022 12:56-0500 Diastolic blood pressure 78 mm[Hg] Tegan Podlogar RESIDENT PROGRAMS ASSISTANT.CLINICAL LABORATORY SCIENCE PROFESSOR Work Phone: [facility] 08-22-2022 12:56-0500 Heart rate 86 /min Tegan Podlogar RESIDENT PROGRAMS ASSISTANT.CLINICAL LABORATORY SCIENCE PROFESSOR Work Phone: [facility] 08-22-2022 12:56-0500 Respiratory rate 18 /min Tegan Podlogar RESIDENT PROGRAMS ASSISTANT.CLINICAL LABORATORY SCIENCE PROFESSOR Work Phone: [facility] 08-22-2022 12:56-0500 SaO2% (BldA) [Mass fraction] 98 % Tegan Podlogar RESIDENT PROGRAMS ASSISTANT.CLINICAL LABORATORY SCIENCE PROFESSOR Work Phone: [facility] 08-22-2022 12:56-0500 Systolic blood pressure 132 mm[Hg] Tegan Podlogar RESIDENT PROGRAMS ASSISTANT.CLINICAL LABORATORY SCIENCE PROFESSOR Work Phone: [facility] 05-11-2022 10:39-0400 Body mass index (BMI) [Ratio] 27.6 kg/m2 Dr. Jude Ribeiro Work Phone: [facility] 05-11-2022 10:39-0400 Body weight 75.[address] Jude Ribeiro Work Phone: [facility] 05-11-2022 10:39-0400 Diastolic blood pressure 85 mm[Hg] Dr. Jude Ribeiro Work Phone: [facility] 05-11-2022 10:39-0400 Heart rate 82 /min Dr. Jude Ribeiro Work Phone: [facility] 05-11-2022 10:39-0400 Respiratory rate 16 /min Dr. Jude Ribeiro Work Phone: [facility] 05-11-2022 10:39-0400 SaO2% (BldA) [Mass fraction] 99 % Dr. Jude Ribeiro Work Phone: [phone] [place] [address] 05-11-2022 10:39-0400 Systolic blood pressure 131 mm[Hg] Dr. Jude Ribeiro Work Phone: [facility] 04-21-2022 13:06-0400 Body weight 75.03 kg Tegan Podlogar RESIDENT PROGRAMS ASSISTANT.CLINICAL LABORATORY SCIENCE PROFESSOR Work Phone: [facility] 04-21-2022 13:06-0400 Diastolic blood pressure 80 mm[Hg] Tegan Podlogar RESIDENT PROGRAMS ASSISTANT.CLINICAL LABORATORY SCIENCE PROFESSOR Work Phone: [facility] 04-21-2022 13:06-0400 Heart rate 80 /min Tegan Podlogar RESIDENT PROGRAMS ASSISTANT.CLINICAL LABORATORY SCIENCE PROFESSOR Work Phone: [facility] 04-21-2022 13:06-0400 Respiratory rate 16 /min Tegan Podlogar RESIDENT PROGRAMS ASSISTANT.CLINICAL LABORATORY SCIENCE PROFESSOR Work Phone: [facility] 04-21-2022 13:06-0400 SaO2% (BldA) [Mass fraction] 97 % Tegan Podlogar RESIDENT PROGRAMS ASSISTANT.CLINICAL LABORATORY SCIENCE PROFESSOR Work Phone: [facility] 04-21-2022 13:06-0400 Systolic blood pressure 128 mm[Hg] Tegan Podlogar RESIDENT PROGRAMS ASSISTANT.CLINICAL LABORATORY SCIENCE PROFESSOR Work Phone: [facility] 10-18-2021 13:33-0400 Body weight 75.12 kg Marisol Ribeiro MD Work Phone: [facility] 10-18-2021 13:33-0400 Diastolic blood pressure 64 mm[Hg] Marisol Ribeiro MD Work Phone: [facility] 10-18-2021 13:33-0400 Heart rate 63 /min Marisol Ribeiro MD Work Phone: [facility] 10-18-2021 13:33-0400 Respiratory rate 16 /min Marisol Ribeiro MD Work Phone: [facility] 10-18-2021 13:33-0400 SaO2% (BldA) [Mass fraction] 97 % Marisol Ribeiro MD Work Phone: [facility] 10-18-2021 13:33-0400 Systolic blood pressure 104 mm[Hg] Marisol Ribeiro MD Work Phone: [facility] Encounters Encounter Date Encounter Type Care Provider Facility Start: 05-24-2025 Evaluation and manag ement of inpatient MARILY LEONE Facility:[facility] Start: 05-21-2025 End: 05-24-2025 ambulatory MARISOL RIBEIRO Facility:[facility] Start: 05-20-2025 End: 05-20-2025 ambulatory RUTHY ALVARADOT Facility:[facility] Start: 05-19-2025 End: 05-19-2025 Emergency department patient visit MARISOL RIBEIRO Facility:[facility] Start: 04-15-2025 End: 04-15-2025 ambulatory Tegan Podlogar [employer] Work Phone: -[facility] Start: 04-15-2025 End: 04-15-[address] Alcon Grajeda MD -[facility] Work Phone: Start: 04-09-2025 End: 04-09-[address] Alcon Grajeda MD -[facility] Work Phone: Start: 04-09-2025 End: 04-09-2025 ambulatory Tegan Podlogar [employer] Work Phone: [facility] Start: 02-24-2025 End: 02-24-2025 ambulatory Tegan Podlogar [employer] Work Phone: [facility] Start: 02-24-2025 End: 02-24-2025 Patient encounter procedure Jamee Lamar -[facility] Work Phone: Start: 02-14-2025 End: 02-14-2025 ambulatory MARISOL RIBEIRO Facility:[facility] Start: 02-07-2025 End: 02-07-2025 Patient encounter procedure Marisol Ribeiro MD Work Phone: [facility] Comment on above: Controlled type 2 di abetes mellitus without complication, without long-term current use of insulin (HCC) (Primary Dx); Frequency of urination and polyuria; Onychomycosis; Primary hypertension; ASHD (arteriosclerotic heart disease); Sick sinus syndrome (HCC); Pacemaker; Prostate cancer (HCC); Diarrhea, unspecified type; Chronic bilateral low back pain with bilateral sciatica Start: 02-07-2025 End: 02-07-2025 ambulatory MARISOL RIBEIRO Facility:[facility] Start: 02-04-2025 End: 02-04-2025 Telephone encounter Marisol Ribeiro MD Work Phone: [facility] Comment on above: Patient Call Start: 01-14-2025 End: 01-14-2025 ambulatory Tegan Wing [employer] Work Phone: [facility] Start: 01-14-2025 End: 01-14-[address] Alcon Grajeda MD [facility] Work Phone: Start: 10-16-2024 End: 10-16-2024 ambulatory Alcon Grajeda Facility:[facility] Start: 10-16-2024 End: 10-16-[address] Alcon Grajeda MD [facility] Work Phone: Start: 09-24-2024 End: 09-24-2024 ambulatory Tegan Wing [employer] Facility:[facility] Start: 08-26-2024 End: 08-26-2024 Refill Marisol Ribeiro MD Work Phone: [facility] Comment on above: Refill Request Start: 08-01-2024 End: 08-04-2024 Telephone encounter Tegan Wing APRN.CNP Work Phone: [facility] Comment on above: Results Start: 07-30-2024 End: 07-30-2024 ambulatory MARISOL RIBEIRO Facility:[facility] Start: 07-30-2024 End: 07-30-2024 Patient encounter procedure Marisol Ribeiro MD Work Phone: [facility] Comment on above: Chronic bilateral lo w back pain with bilateral sciatica (Primary Dx); Primary hypertension; Anemia, unspecified type Start: 07-17-2024 End: 07-17-2024 ambulatory Tegan Wing [employer] Facility:[facility] Start: 07-01-2024 End: 07-01-2024 Telephone encounter Tegan Wing APRN.CLINICAL LABORATORY SCIENCE PROFESSOR Work Phone: [facility] Comment on above: Results; Orders Start: 06-30-2024 End: 06-30-2024 Telephone encounter Tegan Wing APRN.CLINICAL LABORATORY SCIENCE PROFESSOR Work Phone: [facility] Comment on above: Patient Update; Romana ent Question Start: 06-30-2024 End: 06-30-2024 ambulatory MARISOL RIBEIRO Facility:[facility] Start: 06-30-2024 End: 06-30-2024 Patient encounter procedure Tegan Wing APRN.CLINICAL LABORATORY SCIENCE PROFESSOR Work Phone: [facility] Comment on above: Hospital discharge f ollow-up (Primary Dx); Controlled type 2 diabetes mellitus without complication, without long-term current use of insulin (HCC); Encounter for immunization; Candidal intertrigo; Weight loss Start: 06-30-2024 End: 06-30-2024 ambulatory MARISOL RIBEIRO Facility:[facility] Start: 04-25-2024 End: 04-25-2024 ambulatory Tegan Wing [employer] Facility:[facility] Start: 11-16-2023 Telephone encounter Tegan read APRN.CLINICAL LABORATORY SCIENCE PROFESSOR Work Phone: [facility] Comment on above: Results Start: 11-14-2023 End: 11-14-2023 Patient encounter procedure Tegan Herreralogangela THURSTON.CLINICAL LABORATORY SCIENCE PROFESSOR [facility] Comment on above: Controlled type 2 di abetes mellitus without complication, without long-term current use of insulin (HCC) (Primary Dx); Sick sinus syndrome (HCC); Prostate cancer (HCC); ASHD (arteriosclerotic heart disease); Pacemaker; Statin declined; Mixed hyperlipidemia; Depression screening Start: 10-24-2023 Refill Marisol Ribeiro MD Work Phone: [facility] Comment on above: Refill Request Start: 10-16-2023 ambulatory Carol Marusa [facility] Comment on above: Population Health Na vigation Outreach ([employer] care gaps) Start: 05-17-2023 Telephone encounter Tegan read APRN.CLINICAL LABORATORY SCIENCE PROFESSOR Work Phone: [facility] Comment on above: Results Start: 05-16-2023 End: 05-16-2023 Patient encounter procedure Tegan Wing APRN.CLINICAL LABORATORY SCIENCE PROFESSOR Work Phone: [facility] Comment on above: Controlled type 2 di abetes mellitus without complication, without long-term current use of insulin (HCC) (Primary Dx); Encounter for immunization; ASHD (arteriosclerotic heart disease); Prostate cancer (HCC); Pacemaker; Sick sinus syndrome (HCC); Fall, initial encounter Start: 02-14-2023 Telephone encounter Jude Ribeiro MD Work Phone: [facility] Comment on above: Results Start: 02-13-2023 End: 02-13-2023 Patient encounter procedure Tegan Wing APRN.CLINICAL LABORATORY SCIENCE PROFESSOR Work Phone: [facility] Comment on above: Controlled type 2 di abetes mellitus without complication, without long-term current use of insulin (HCC) (Primary Dx); Prostate cancer (HCC); Mixed hyperlipidemia; ASHD (arteriosclerotic heart disease); Sick sinus syndrome (HCC); Pacemaker Start: 01-30-2023 End: 01-30-2023 Emergency department patient visit Dr. Jude Ribeiro Work Phone: [facility] Work Phone: Start: 01-10-2023 End: 01-10-[address] Jude Ribeiro Work Phone: [facility] Work Phone: Start: 12-14-2022 Refill Marisol Ribeiro MD Work Phone: [facility] Comment on above: Refill Request Start: 11-15-2022 Telephone encounter Tegan read APRN.CLINICAL LABORATORY SCIENCE PROFESSOR Work Phone: [facility] Comment on above: Results Start: 11-13-2022 End: 11-13-2022 Patient encounter procedure Tegan Wing APRN.CLINICAL LABORATORY SCIENCE PROFESSOR Work Phone: [facility] Comment on above: Controlled type 2 di abetes mellitus without complication, without long-term current use of insulin (HCC) (Primary Dx); Mixed hyperlipidemia; SSS (sick sinus syndrome) ([facility]); ASHD (arteriosclerotic heart disease); Pacemaker Start: 11-08-2022 Refill Marisol Ribeiro MD Work Phone: [facility] Comment on above: Refill Request Start: 10-30-2022 End: 10-30-[address] Jude Ribeiro Work Phone: [facility] Work Phone: Start: 09-28-2022 End: 09-28-[address] Jude Ribeiro Work Phone: [facility] Work Phone: Start: 09-28-2022 End: 09-28-[address] Jude Ribeiro Work Phone: [facility] Start: 09-27-2022 End: 09-27-[address] Jude Ribeiro Work Phone: [facility] Start: 09-26-2022 Telephone encounter Jude Ribeiro MD Work Phone: [facility] Comment on above: Patient Update Start: 09-05-2022 End: 09-05-2022 Patient encounter procedure Tegan Wing APRN.CLINICAL LABORATORY SCIENCE PROFESSOR Work Phone: [facility] Comment on above: Left hip pain (Prima ry Dx) Start: 09-02-2022 End: 09-02-2022 Emergency department patient visit Dr. Jude Ribeiro Work Phone: [facility] Start: 08-23-2022 Refill Tegan Wing APRN.CLINICAL LABORATORY SCIENCE PROFESSOR Work Phone: [facility] Start: 08-22-2022 End: 08-22-2022 Patient encounter procedure Tegan Wing APRN.CLINICAL LABORATORY SCIENCE PROFESSOR Work Phone: [facility] Comment on above: Controlled type 2 di abetes mellitus without complication, without long-term current use of insulin (HCC) (Primary Dx); ASHD (arteriosclerotic heart disease); Pacemaker; Prostate cancer (HCC) Start: 07-28-2022 Telephone encounter Tegan read APRN.CLINICAL LABORATORY SCIENCE PROFESSOR Work Phone: [facility] Comment on above: Results; Orders Start: 06-22-2022 End: 06-22-[address] Jude Ribeiro Work Phone: [facility] Start: 05-22-2022 Non-patient / Non-visit Dr. Denita Ribeiro Work Phone: [facility] Start: 05-22-2022 End: 05-22-[address] Jude Ribeiro Work Phone: [facility] Start: 05-11-2022 End: 05-11-[address] Jude Ribeiro Work Phone: [facility] Start: 04-21-2022 End: 04-21-2022 Patient encounter procedure Tegan Wing APRN.CLINICAL LABORATORY SCIENCE PROFESSOR Work Phone: [facility] Comment on above: Controlled type 2 di abetes mellitus without complication, without long-term current use of insulin (HCC) (Primary Dx); Itchy skin; Encounter for immunization; Mixed hyperlipidemia; ASHD (arteriosclerotic heart disease); Pacemaker; Prostate cancer (HCC) Start: 10-18-2021 End: 10-18-2021 Patient encounter procedure Marisol Ribeiro MD Work Phone: [facility] Comment on above: Controlled type 2 di abetes mellitus without complication, without long-term current use of insulin (HCC) (Primary Dx); Prostate cancer (HCC); ASHD (arteriosclerotic heart disease); SSS (sick sinus syndrome) (HCC); Pacemaker; Primary hypertension; Mixed hyperlipidemia Start: 05-15-2012 End: 04-10-2017 Patient encounter procedure Tegan Podlogangela RESIDENT PROGRAMS ASSISTANT.ARETHA Work Phone: [facility] Procedures Date Procedure Procedure Detail Performing Clinician Start: 06-30-2024 [employer] COVI D-19 VACCINE AGE 12+ YR (COMIRNATY) Tegan Podlogar RESIDENT PROGRAMS ASSISTANT.ARETHA Work Phone: Start: 11-14-2023 Adult depression scr eening assessment Tegan Podlogar RESIDENT PROGRAMS ASSISTANT.ARETHA Work Phone: Start: 05-16-2023 INFLUENZA VACCINE, P RSV FREE, AGE 65+ YR, HIGH DOSE, QUADRIVALENT (FLUZONE HIGH-DOSE) Tegan Podlogar RESIDENT PROGRAMS ASSISTANT.ARETHA Work Phone: Start: 01-30-2023 Plain x-ray of hand Dr. Jude Ribeiro Work Phone: Start: 09-02-2022 Plain x-ray of pelvi s and lower extremity Dr. Jude Ribeiro Work Phone: Start: 05-22-2022 Cardiovascular stres s test using pharmacologic stress agent Dr. Jude Ribeiro Work Phone: Start: 04-21-2022 INFLUENZA SEASONAL QUADRIVALENT HIGH DOSE AGE 65+ Tegan Podlogar RESIDENT PROGRAMS ASSISTANT.ARETHA Work Phone: Plan of Treatment Date Care Activity Detail Author Start: 03-13-2028 Urine microalbumin profile [facility] Start: 02-07-2026 Diabetic foot examination Diabetic Foot Exam [facility] Start: 02-07-2026 RSV Vaccine (1 - 1-d ose 75+ series) RSV Vaccine (1 - 1-dose 75+ series) [facility] Comment on above: Postponed from 10/18 (Declined at this time) Start: 02-07-2026 Shingrix Vaccine (1 of 2) Shingrix Vaccine (1 of 2) [facility] Comment on above: Postponed from 10/18 (Declined at this time) Start: 12-04-2025 Glaucoma screening Dilated Retinal E xam [facility] Start: 06-30-2025 Hepatitis B screening Urine Al bumin:Creatinine Ratio [facility] Start: 03-21-2025 End: 06-20-2025 Hepatic function 2000 panel - Serum or Plasma HEPATIC FUNCTION PNL Lab Routine Onychomycosis Expected: 03/21/2025, Expires: 06/20/2025 [facility] Comment on above: Expected: 03/21/2025 , Expires: 06/20/2025 Start: 03-16-2025 Influenza vaccination Influenza Vacc ine (#1) [facility] Start: 02-07-2025 End: 05-09-2025 Bacteria identified in Urine by Culture BACTERIAL CULTURE, URINE Microbiology Routine Frequency of urination and polyuria Expected: 02/07/2025, Expires: 05/09/2025 [facility] Comment on above: Expected: 02/07/2025 , Expires: 05/09/2025 Start: 02-07-2025 End: 05-09-2025 CBC W Auto Differential panel - Blood COMPLETE BLOOD COUNT AND DIFFERENTIAL Lab Routine Controlled type 2 diabetes mellitus without complication, without long-term current use of insulin (HCC) Expected: 02/07/2025, Expires: 05/09/2025 [facility] Work Phone: Comment on above: Expected: 02/07/2025 , Expires: 05/09/2025 Start: 02-07-2025 End: 05-09-2025 Comprehensive metabolic 2000 panel - Serum or Plasma COMPREHENSIVE METABOLIC PANEL Lab Routine Controlled type 2 diabetes mellitus without complication, without long-term current use of insulin (HCC) Expected: 02/07/2025, Expires: 05/09/2025 [facility] Comment on above: Expected: 02/07/2025 , Expires: 05/09/2025 Start: 02-07-2025 End: 05-09-2025 Hemoglobin A1c in Blood HEMOGLOBIN A1C Lab Routine Controlled type 2 diabetes mellitus without complication, without long-term current use of insulin (HCC) Expected: 02/07/2025, Expires: 05/09/2025 [facility] Comment on above: Expected: 02/07/2025 , Expires: 05/09/2025 Start: 02-07-2025 End: 05-09-2025 LIPID PANEL, NONFASTING LIPID PANEL, NONFASTING Lab Routine Controlled type 2 diabetes mellitus without complication, without long-term current use of insulin (HCC) Expected: 02/07/2025, Expires: 05/09/2025 [facility] Comment on above: Expected: 02/07/2025 , Expires: 05/09/2025 Start: 02-07-2025 End: 05-09-2025 PSA/PROSTATE SPECIFIC ANTIGEN SCREENING PSA/PROSTATE SPECIFIC ANTIGEN SCREENING Lab Routine Prostate cancer (HCC) Expected: 02/07/2025, Expires: 05/09/2025 [facility] Comment on above: Expected: 02/07/2025 , Expires: 05/09/2025 Start: 02-07-2025 End: 05-09-2025 Urinalysis complete panel - Urine URINALYSIS, WITH MICROSCOPIC Lab Routine Frequency of urination and polyuria Expected: 02/07/2025, Expires: 05/09/2025 [facility] Comment on above: Expected: 02/07/2025 , Expires: 05/09/2025 Start: 02-07-2025 End: 02-07-2025 Patient encounter procedure 02/07/2025 11:20 AM EDT Office Visit [facility] [address] [place], [place] [id number] Marisol Ribeiro MD [address] [place], [place] [address] Routine follow up- rescheduled from 09/20/24, 11/01 son called and r/s [facility] Comment on above: Routine follow up- r escheduled from 09/20/24, 11/01 son called and r/s Start: 12-29-2024 Covid-19 Vaccine () Covid-19 Vaccine () [facility] Start: 12-29-2024 Hemoglobin A1c measurement HbA1C [facility] Start: 11-14-2024 Hepatitis B surface antibody level LDL Cholesterol [facility] Start: 11-13-2024 Anxiety Screening Anxiety Screening [facility] Start: 11-13-2024 Depression Screening Depression Scre ening [facility] Start: 11-13-2024 Diabetic foot examination Diabetic Foot Exam [facility] Start: 08-30-2024 End: 08-30-2024 Patient encounter procedure 08/30/2024 10:40 AM EST Office Visit [facility] [address] [place] [address] Marisol Ribeiro MD [address] [place] [address] 4 week follow up [facility] Comment on above: 4 week follow up Start: 08-12-2024 End: 11-11-2024 Iron and Iron binding capacity panel - Serum or Plasma IRON AND TIBC Lab Routine Anemia, unspecified type Expected: 08/12/2024, Expires: 11/11/2024 [facility] Comment on above: Expected: 08/12/2024 , Expires: 11/11/2024 Start: 07-30-2024 End: 07-30-2024 Patient encounter procedure [facility] Comment on above: 1 month follow up 1 month follow up (l abs per Tegan Cox to complete) Start: 07-16-2024 Advance Directive Discussion Advance Directive Discussion [facility] Start: 07-16-2024 Medicare Advantage Annual Wellness Visit Medicare Advantage Annual Wellness Visit [facility] Start: 07-01-2024 End: 09-30-2024 Cobalamin (Vitamin B12) [Mass/volume] in Serum or Plasma VITAMIN B12 Lab Routine Anemia, unspecified type Expected: 07/01/2024, Expires: 09/30/2024 [facility] Work Phone: Comment on above: Expected: 07/01/2024 , Expires: 09/30/2024 Start: 07-01-2024 End: 09-30-2024 Ferritin [Mass/volume] in Serum or Plasma FERRITIN Lab Routine Anemia, unspecified type Expected: 07/01/2024, Expires: 09/30/2024 [facility] Comment on above: Expected: 07/01/2024 , Expires: 09/30/2024 Start: 07-01-2024 End: 09-30-2024 Folate [Mass/volume] in Serum or Plasma FOLATE, SERUM Lab Routine Anemia, unspecified type Expected: 07/01/2024, Expires: 09/30/2024 [facility] Comment on above: Expected: 07/01/2024 , Expires: 09/30/2024 Start: 06-30-2024 End: 09-29-2024 Comprehensive metabolic 2000 panel - Serum or Plasma [facility] Work Phone: Comment on above: Expected: 06/30/2024 , Expires: 09/29/2024 Start: 06-30-2024 End: 09-29-2024 Microalbumin/Creatinine [Mass Ratio] in Urine [facility] Comment on above: Expected: 06/30/2024 , Expires: 09/29/2024 Start: 05-17-2024 Hemoglobin A1c measurement HbA1C [facility] Start: 05-16-2024 Hepatitis B screening Urine Al bumin:Creatinine Ratio [facility] Start: 05-16-2024 End: 05-16-2024 Patient encounter procedure 05/16/2024 12:40 PM EDT Office Visit [facility] [address] [place] [address] PodTegan vega APRN.CLINICAL LABORATORY SCIENCE PROFESSOR [address] [place] [address] 6 month follow up [facility] Comment on above: 6 month follow up Start: 11-15-2023 Hepatitis B surface antibody level LDL CHOLESTEROL [facility] Start: 11-14-2023 3 comp foot exam completed DIABETIC FOOT EXAM [facility] Start: 11-14-2023 End: 02-13-2024 Comprehensive metabolic 2000 panel - Serum or Plasma COMP METABOLIC PANEL Lab Routine Controlled type 2 diabetes mellitus without complication, without long-term current use of insulin (HCC) Expected: 11/14/2023, Expires: 02/13/2024 [facility] Work Phone: Comment on above: Expected: 11/14/2023 , Expires: 02/13/2024 Start: 11-14-2023 Diabetic foot examination Diabetic Foot Exam [facility] Start: 11-14-2023 End: 02-13-2024 Hemoglobin A1c in Blood HEMOGLOBIN A1C Lab Routine Controlled type 2 diabetes mellitus without complication, without long-term current use of insulin (HCC) Expected: 11/14/2023, Expires: 02/13/2024 [facility] Work Phone: Comment on above: Expected: 11/14/2023 , Expires: 02/13/2024 Start: 11-14-2023 Hemoglobin A1c measurement HbA1C [facility] Start: 11-14-2023 Hemoglobin A1c/Hemoglobin.total in Blood HbA1C [facility] Start: 11-14-2023 End: 02-13-2024 Lipid 1996 panel - Serum or Plasma LIPID PANEL BASIC Lab Routine ASHD (arteriosclerotic heart disease) Expected: 11/14/2023, Expires: 02/13/2024 [facility] Comment on above: Expected: 11/14/2023 , Expires: 02/13/2024 Start: 08-16-2023 Hemoglobin A1c/Hemoglobin.total in Blood HBA1C [facility] Start: 07-16-2023 Advance Directive Discussion Advance Directive Discussion [facility] Start: 07-16-2023 Behavioral Health Screening Behavioral Health Screening [facility] Start: 07-16-2023 Depression Assessment Depression Ass essment [facility] Start: 05-17-2023 Hemoglobin A1c/Hemoglobin.total in Blood HBA1C [facility] Start: 05-16-2023 End: 08-15-2023 ALBUMIN/CREAT RATIO RND UR [facility] Work Phone: Comment on above: Expected: 05/16/2023 , Expires: 08/15/2023 Start: 05-16-2023 End: 08-15-2023 Hemoglobin A1c in Blood [facility] Work Phone: Comment on above: Expected: 05/16/2023 , Expires: 08/15/2023 Start: 04-20-2023 Hepatitis B screening URINE AL BUMIN:CREATININE RATIO [facility] Start: 03-16-2023 Covid-19 Vaccine () Covid-19 Vaccine () [facility] Start: 03-16-2023 Influenza vaccination INFLUENZA (#1) [facility] Start: 03-11-2023 Glaucoma screening Dilated Retinal E xam [facility] Start: 03-11-2023 Hepatitis C antibody , confirmatory test DILATED RETINAL EXAM [facility] Start: 02-13-2023 End: 04-15-2023 Comprehensive metabolic 2000 panel - Serum or Plasma [facility] Work Phone: Comment on above: Expected: 02/13/2023 , Expires: 04/15/2023 Start: 02-13-2023 End: 04-15-2023 Hemoglobin A1c in Blood [facility] Work Phone: Comment on above: Expected: 02/13/2023 , Expires: 04/15/2023 Start: 11-13-2022 End: 01-13-2023 Comprehensive metabolic 2000 panel - Serum or Plasma COMP METABOLIC PANEL Lab Routine Controlled type 2 diabetes mellitus without complication, without long-term current use of insulin (HCC) Mixed hyperlipidemia Expected: 11/13/2022, Expires: 01/13/2023 [facility] Work Phone: Comment on above: Expected: 11/13/2022 , Expires: 01/13/2023 Start: 11-13-2022 End: 01-13-2023 Hemoglobin A1c in Blood HGB A1C Lab Routine Controlled type 2 diabetes mellitus without complication, without long-term current use of insulin (HCC) Expected: 11/13/2022, Expires: 01/13/2023 [facility] Work Phone: Comment on above: Expected: 11/13/2022 , Expires: 01/13/2023 Start: 11-13-2022 End: 01-13-2023 Lipid 1996 panel - Serum or Plasma LIPID PANEL BASIC Lab Routine Mixed hyperlipidemia Expected: 11/13/2022, Expires: 01/13/2023 [facility] Work Phone: Comment on above: Expected: 11/13/2022 , Expires: 01/13/2023 Start: 10-24-2022 Hemoglobin A1c/Hemoglobin.total in Blood HBA1C [facility] Start: 10-21-2022 COVID-19 VACCINE (6 - Moderna series) COVID-19 VACCINE (6 - Moderna series) [facility] Start: 10-18-2022 3 comp foot exam completed DIABETIC FOOT EXAM [facility] Start: 10-14-2022 Hepatitis B surface antibody level LDL CHOLESTEROL [facility] Start: 07-22-2022 End: 09-21-2022 Hemoglobin A1c in Blood HGB A1C Lab Routine Controlled type 2 diabetes mellitus without complication, without long-term current use of insulin (HCC) Expected: 07/22/2022, Expires: 09/21/2022 [facility] Work Phone: Comment on above: Expected: 07/22/2022 , Expires: 09/21/2022 Start: 07-21-2022 Hemoglobin A1c/Hemoglobin.total in Blood HBA1C [facility] Start: 07-16-2022 ADVANCE DIRECTIVE DISCUSSION ADVANCE DIRECTIVE DISCUSSION [facility] Start: 07-16-2022 DEPRESSION ASSESSMENT DEPRESSION ASS ESSMENT [facility] Start: 06-08-2022 Hepatitis C antibody , confirmatory test DILATED RETINAL EXAM [facility] Start: 04-19-2022 End: 06-19-2022 ALBUMIN/CREAT RATIO RND UR ALBUMIN/CREAT RATIO RND UR Lab Routine Controlled type 2 diabetes mellitus without complication, without long-term current use of insulin (HCC) Expected: 04/19/2022, Expires: 06/19/2022 [facility] Work Phone: Comment on above: Expected: 04/19/2022 , Expires: 06/19/2022 Start: 04-19-2022 End: 06-19-2022 CBC panel - Blood by Automated count CBC Lab Routine Controlled type 2 diabetes mellitus without complication, without long-term current use of insulin (HCC) Expected: 04/19/2022, Expires: 06/19/2022 [facility] Work Phone: Comment on above: Expected: 04/19/2022 , Expires: 06/19/2022 Start: 04-19-2022 End: 06-19-2022 Comprehensive metabolic 2000 panel - Serum or Plasma COMP METABOLIC PANEL Lab Routine Controlled type 2 diabetes mellitus without complication, without long-term current use of insulin (HCC) Expected: 04/19/2022, Expires: 06/19/2022 [facility] Work Phone: Comment on above: Expected: 04/19/2022 , Expires: 06/19/2022 Start: 04-19-2022 End: 06-19-2022 Hemoglobin A1c/Hemoglobin.total in Blood HGB A1C Lab Routine Controlled type 2 diabetes mellitus without complication, without long-term current use of insulin (HCC) Expected: 04/19/2022, Expires: 06/19/2022 [facility] Work Phone: Comment on above: Expected: 04/19/2022 , Expires: 06/19/2022 Start: 04-19-2022 Hepatitis B screening URINE AL BUMIN:CREATININE RATIO [facility] Start: 04-15-2022 Hemoglobin A1c/Hemoglobin.total in Blood HBA1C [facility] Start: 03-16-2022 Influenza vaccination INFLUENZA (Sea son Ended) [facility] Start: 02-23-2022 COVID-19 VACCINE (5 - Booster for Moderna series) COVID-19 VACCINE (5 - Booster for Moderna series) [facility] Start: 07-16-2021 ADVANCE DIRECTIVE DISCUSSION ADVANCE DIRECTIVE DISCUSSION [facility] Start: 07-16-2021 DEPRESSION ASSESSMENT DEPRESSION ASS ESSMENT [facility] Start: 10-18-2014 RSV Vaccine (1 - 1-d ose 75+ series) RSV Vaccine (1 - 1-dose 75+ series) [facility] Start: 1999 Hepatitis B Vaccine (1 of 3 - Risk 3-dose series) Hepatitis B Vaccine (1 of 3 - Risk 3-dose series) [facility] Start: 1999 RSV Vaccine (1 - 1-d ose 60+ series) RSV Vaccine (1 - 1-dose 60+ series) [facility] Start: 10-18-1989 SHINGRIX VACCINE (1 of 2) SHINGRIX VACCINE (1 of 2) [facility] Hemoglobin.gastroint est inal.lower [Presence] in Stool by Immunoassay IMMUNOCHEMICAL FECAL OCCULT BLOOD TEST Lab Routine Anemia, unspecified type Ordered: 07/01/2024 [facility] Comment on above: Ordered: 07/01/2024 Hemoglobin.gastroint est inal.lower [Presence] in Stool by Immunoassay IMMUNOCHEMICAL FECAL OCCULT BLOOD TEST Lab Routine Anemia, unspecified type Ordered: 07/30/2024 [facility] Work Phone: Comment on above: Ordered: 07/30/2024 Patient Education [facility] Work Phone: Patient referral [facility] Work Phone: [facility] Immunizations Immunization Date Immunization Notes Care Provider Gi scott 06-30-2024 COVID-19 vaccine, ag e 12+ yr (PFIZER-BIONTECH COMIRNATY) Tegan Podlogar RESIDENT 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.CLINICAL 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 SCIENCE PROFESSOR Work Phone: [facility] 03-27-2024 influenza, high dose seasonal, preservative-free Tegan Podlogar [employer]STER [employer] Work Phone: [facility] 03-27-2024 influenza virus vaccine, unspecified formulation Marisol Ribeiro MD Work Phone: [facility] 05-16-2023 influenza (HD-IIV4) vaccine, age 65+ yr, high dose, quadrivalent, PF (FLUZONE HIGH-DOSE) Tegan Podlogar RESIDENT PROGRAMS ASSISTANT.CLINICAL LABORATORY SCIENCE PROFESSOR Work Phone: [facility] 06-22-2022 Covid Moderna Bivale nt Booster Tegan Podlogar [employer] Work Phone: [facility] 04-21-2022 influenza, high-dose , quadrivalent vaccine (FLUZONE HIGH DOSE QUADRIVALENT) Tegan Podlogar RESIDENT PROGRAMS ASSISTANT.CLINICAL LABORATORY SCIENCE PROFESSOR Work Phone: [facility] 12-29-2021 Covid (Moderna) Tegan Podlog ar [employer] Work Phone: [facility] 07-26-2021 Covid (Moderna) Tegan Podlog ar TESTER [employer] Work Phone: [facility] 12-09-2020 Covid (Moderna) Tegan Podlog ar [employer] Work Phone: [facility] 11-08-2020 Covid (Moderna) Tegan Podlog ar [employer] Work Phone: [facility] 03-16-2020 influenza, injectabl e, quadrivalent, preservative free Tegan Podlogar [employer] Work Phone: [facility] 03-16-2020 influenza, seasonal, injectable Dr. Jude Ribeiro Work Phone: [facility] 04-11-2019 influenza, high dose seasonal, preservative-free Marisol Ribeiro MD Work Phone: [facility] 05-03-2018 influenza, high dose seasonal, preservative-free Marisol Ribeiro MD Work Phone: [facility] 03-26-2017 influenza, high dose seasonal, preservative-free Marisol Ribeiro MD Work Phone: [facility] 07-12-2016 pneumococcal conjuga te vaccine, 13 valent Marisol Ribeiro MD Work Phone: [facility] 05-29-2016 influenza, high dose seasonal, preservative-free Marisol Ribeiro MD Work Phone: [facility] 04-13-2015 influenza, high dose seasonal, preservative-free Marisol Ribeiro MD Work Phone: [facility] 05-04-2014 influenza, seasonal, injectable Marisol Ribeiro MD Work Phone: [facility] Work Phone: 05-16-2013 influenza virus vaccine, unspecified formulation Marisol Ribeiro MD Work Phone: [facility] 04-22-2012 influenza virus vaccine, unspecified formulation Marisol Ribeiro MD Work Phone: [facility] Work Phone: 12-26-2010 tetanus and diphther ia toxoids, adsorbed, preservative free, for adult use (2 Lf of tetanus toxoid and 2 Lf of diphtheria toxoid) Marisol Ribeiro MD Work Phone: [facility] Work Phone: 05-16-2010 influenza virus vaccine, unspecified formulation Marisol Ribeiro MD Work Phone: [facility] 04-26-2009 influenza virus vaccine, unspecified formulation Marisol Ribeiro MD Work Phone: [facility] Work Phone: 05-21-2008 influenza virus vaccine, unspecified formulation Marisol Ribeiro MD Work Phone: [facility] Work Phone: 05-21-2008 pneumococcal polysaccharide vaccine, 23 valent Marisol Ribeiro MD Work Phone: [facility] Work Phone: 05-04-2006 influenza virus vaccine, unspecified formulation Marisol Ribeiro MD Work Phone: [facility] Work Phone: Payers Date Payer Category Payer Self-pay [id number] 2022 Medicare (Managed Care) [facility] MEDICARE PPO [id number] 2022 Unknown [id number] 2020 Medicare UHC AAR MEDICAR E [facility] MEDICARE HMO [id number] 2020-Present [phone] [address] [address] [place] [address] [facility] [place] [id number] 2020 Medicare [id number] 2005 Private Health Insurance [id number] 2004 Medicare MEDICARE PART A B [id number] Unknown [id number] Unknown [id number] Unknown [id number] Unknown [id number] Unknown [id number] Unknown [id number] Unknown [id number] Unknown [id number] Unknown [id number] Unknown [id number] Social History Date Type Detail Facility Start: 01-12-2011 End: 03-20-2024 Tobacco smoking status MTIS Ex-smoker [facility] End: 07-16-1977 History of tobacco use Current smoker [facility] End: 07-16-1977 History of tobacco use Cigarette Smoker [facility] End: 07-16-1977 History of tobacco use Pipe Smoker [facility] End: 07-16-1977 History of tobacco use Cigar Smoker [facility] History of tobacco use [facility] Start: 10-18-2021 End: 02-07-2025 Alcohol intake Current non-drinker of alcohol (finding) [facility] Start: 1940 Sex Assigned At Not on file [facility] Start: 10-08-2021 End: 04-14-2022 Exposure to SARS-CoV-2 (event) Not sure [facility] Start: 01-12-2011 End: 06-30-2024 Tobacco use and exposure Former smokeless tobacco user [facility] Start: 09-02-2022 End: 01-30-2023 Tobacco smoking status NHIS Unknown if ever smoked [facility] Start: 10-06-2020 None [facility] Start: 10-06-2020 Alone [facility] Start: 1940 Sex Assigned At Male [facility] Start: 06-22-2020 End: 02-13-2023 History of Social function [facility] Start: 06-22-2020 End: 02-13-2023 Tobacco use panel [facility] Adult Depression Screening Assessment 0 [facility] Medical Equipment Procedure Code Equipment Code Equipment Original Text Equipment Identifier Dates [id number], [id number], [id number], [id number], [id number], [id number] Start: 03-26-2019 End: 02-07-2025 Comment on above: 1 Strip once daily. Dx:E11.9 Insulin: No Test blood sugar onc e daily and as needed Test blood sugar(s) 2 times daily. Dx: Type 2 DM - Controlled E11.9 Insulin: No Functional Status Date Assessment Result Facility 05-04-2014 Are you deaf, or do you have serious difficulty hearing No 05/04/2014 1:27 PM Teena Barnes LPN No [facility] 05-04-2014 Are you blind, or do you have serious difficulty seeing, even when wearing glasses No 05/04/2014 1:27 PM Teena Barnes LPN No [facility] 05-04-2014 Do you have serious difficulty walking or climbing stairs No 05/04/2014 1:27 PM Teena Barnes LPN No [facility] 05-04-2014 Do you have difficul ty dressing or bathing No 05/04/2014 1:27 PM Teena Barnes LPN No [facility] 05-04-2014 Because of a physica l, mental, or emotional condition, do you have difficulty doing errands alone such as visiting a physician's office or shopping No 05/04/2014 1:27 PM Teena Barnes LPN No [facility] Mental Status Date Assessment Result Facility 09-02-2022 Cognitive function Level Of Cons ciousness Awake;Alert;Appropriate;Fol lows Commands [facility] Work Phone: 05-04-2014 Because of a physica l, mental, or emotional condition, do you have serious difficulty concentrating, remembering, or making decisions No 05/04/2014 1:27 PM EDT Teena Lynch LPN No [facility] Clinical Notes 04-10-2017 to 05-27-2025 Note Date & Type Note Facility 05-27-2025 Note HNO ID: [id number] Author: LOR DE LA CRUZ LSW Service: Care Management Author Type: Manager Of Marketing Type: Care Mgt Progress Note Filed: 05/27/2025 14:51 Note Text: ---- Summary: [facility] ---- SOCIAL WORK PROGRESS NOTE Name: Keith Kevin Sent follow up email to Berta Branham/[facility] re: referral and any concerns she may have. Signature: MERYL Miller Date: May 27, 2025 Time: 2:51 PM [facility] 05-27-2025 Note HNO ID: [id number] Author: LOR DE LA CRUZ LSW Service: Care Management Author Type: Manager Of Marketing Type: Care Mgt Progress Note Filed: 05/27/2025 [...] Xerosis Cutis History of Acute Anterior Wall NC Bph (Benign Prostatic Hyperplasia) Controlled Type 2 [...] Anticipated Discharge Disposition: Assisted Living Facility with [facility] Last Vitals: BP 123/59 Pulse 72[apical[ Temp (Src) 98.4 (Temporal Artery) Resp 18 Ht 5' 7" (1.70m) Wt 161 lb (73.0kg) SpO2 95% BMI 25.21 kg/(m2). O2 Therapy: Room Air CM Admit 05/24. LOS 3 NRD 05/27. Recent fall, right humerus fx increased confusion high risk 11 SW DC to [facility]. Referral to [facility] 05/26. Will need HH PT,OT,ST OT [...] May 27, 2025 TIME: 1:50 PM CSN: [id number] [facility] 05-26-2025 Note HNO ID: [id number] Author: LOR DE LA CRUZ LSW Service: Care Management Author Type: Manager Of Marketing Type: Care Mgt Progress Note Filed: 05/26/2025 11:49 Note Text: ---- Summary: [facility] ---- SOCIAL WORK PROGRESS NOTE Name: Keith Kevin Sent patient's face sheet, HANDP and therapy notes to Berta Branham at [facility] To send periodic updates. Signature: MERYL Miller Date: May 26, 2025 Time: 11:48 AM [facility] 05-25-2025 Note HNO ID: [id number] Author: LOR DE LA CRUZ LSW Service: Care Management Author Type: Manager Of Marketing Type: Care Mgt Progress Note Filed: 05/25/2025 14:00 Note Text: ---- Summary: [facility] contact ---- SOCIAL WORK PROGRESS NOTE Name: Keiht Kevin Spoke with Berta Branham at [facility]. She directed sw to email referral to [email or web address]. Signature: MERYL Miller Date: May 25, 2025 Time: 1:58 PM [facility] 05-25-2025 Note HNO ID: [id number] Author: LOR DE LA CRUZ LSW Service: Care Management Author Type: Manager Of Marketing Type: Care Mgt Initial Assessment Filed: 05/25/2025 12:26 Note Text: ---- Summary: Initial Assessment ---- CARE MANAGEMENT: ASSESSMENT AND DISCHARGE PLAN SERVICE DATE: May 25, 2025 SERVICE TIME: 12:02 PM PCP: Marisol Ribeiro MD Primary Contact: Extended Emergency Contact Information Primary Emergency Contact: Melchor Kevin Mobile Relation: Dragan Secondary Emergency Contact: Eneida Kevin Mobile Relation: Relative Admission Status: Inpatient Swing Insurance Provider: [facility] MEDIC[facility] PPO Discharge Planning requested by: Per Department Practice Potential Transition Plans Other: See Comment ([facility]) Advance Directives: DPOA/HC and Living [...] would like to get patient into an [facility] is preference. [place] of Choice Explained: [place] of Choice Given: Yes Level of Care Discussed: Other: See Comment ([facility] is preference) Discharge Planning Participant(s): Children, Family Patient/Family Comments: (Patient) will definitely need someone with him. Caregiver Assessment: Caregiver is ready, willing and able to meet the patient's needs as recommended by the inter-professional team: Other: See Comment ([facility]) Transport at Discharge: Family Needs Prior to Discharge: Needs Prior to Discharge: To Be Determined, Accepting Facility, Bed Availability, Facility or Agency Choices, Home Care Order, OT/PT Evaluation Post-Acute Discharge Plan: Assisted Living Facility with [facility] Spoke with son and daughter in law (Melchor and Eneida) via phone. They are not available to stay with patient upon discharge and would like him to go to an assisted living facility. Their first is [facility]. Patient has been there previously. to send referral and let family know if [facility] is able to accept. Son expressed that he hopes patient can be at [facility] for 2 weeks. SIGNATURE: MERYL Miller PATIENT NAME: Keith Kevin DATE: May 25, 2025 TIME: 12:22 PM [facility] 05-25-2025 Note HNO ID: [id number] Author: LOR DE LA CRUZ LSW Service: Care Management Author Type: Manager Of Marketing Type: Care Mgt Progress Note Filed: 05/25/2025 10:55 Note Text: ---- Summary: Attempted Initial Assessment ---- SOCIAL WORK PROGRESS NOTE Name: Keith Kevin To patient's room to complete initial assessment. Patient sleeping soundly in bed. Updated white board. Will return later today. Signature: MERYL Miller Date: May 25, 2025 Time: 10:53 AM [facility] 05-23-2025 Note HNO ID: [id number] Author: LIVAN VICENTE APRN.CLINICAL LABORATORY SCIENCE PROFESSOR Service: Hospital Medicine Author Type: Nurse Practitioner Type: Progress Notes Filed: 05/23/2025 15:42 Note Text: DEPARTMENT OF HOSPITAL MEDICINE PROGRESS NOTE SERVICE DATE: 05/23/2025 SERVICE TIME: 12:35 PM Hospital Medicine/Primary Attending: Grabiel Leigh MD NIGHT AND WEEKEND COVERAGE: [facility] [place] 7a-7p Page [id number] 7p-7a Subjective INTERVAL HPI: - patient sitting up in chair; reports ongoing pain to right arm; sling in place - alert to person, place. Unable to recall year without cueing - PT/OT rec SNF-- awaiting pre-cert for therapy; patient agreeable to staying at [facility] for therapy Current Facility-Administered Medications Medication Dose [...] for DM2, hypertension, history of anterior wall NC, ASHD, sick sinus syndrome s/p pacemaker, prostate cancer, BPH, and recent right proximal humerus fracture admitted to [facility] for evaluation of altered mental status. Workup unremarkable. PT/OT rec SNF, awaiting pre-cert. AM labs ordered. Assessment AND Plan Altered mental status, unspecified Present on Admission: Yes - Presented to [facility] ED from home 05/21/2025 via EMS for evaluation of generalized weakness and concerns for mental status changes - CT Brain and C-Spine negative for acute processes - CXR, UA, Urine Tox and ABG unremarkable - B1 pending - PT/OT evaluations-- rec SNF; awaiting pre-cert - Fall Precautions Closed fracture of proximal end of right humerus Present on Admission: Yes - seen at [facility] ED 05/19/2025 and diagnosed with right proximal [...] Admission: Yes History of acute anterior wall NC Present on Admission: Yes - History of CAD with NC 2016 s/p balloon angioplasty - HS Troponins 45, 44, 43 and EKG without ischemic changes concerning for ACS - Lipid panel 02/2025 reviewed - noted statin intolerance - No ASA/Plavix (historically had bleeding) - Follows with [facility] Cardiology - outpatient follow up as scheduled Sick sinus syndrome (HCC) Present on Admission: Yes - S/P Pacemaker 2020 - follows with cardiology at [facility]-- last OV 04/09/2025 Sleep apnea Present on Admission: Yes - Does not use CPAP Prostate cancer (HCC) Present on Admission: Yes - S/p radiation and hormone therapy Medication and Non-Pharmacologic VTE Prophylaxis/Anticoagulants 05/21/25 2300 activity - mobilize patient (de,ia) VTE Prophylaxis: VTE prophylaxis appropriate Disposition: To be determined Plan of care discussed with Provider, RN, Patient Plan communicated to: N/A SIGNATURE: Livan Vicente APRN.CNP PATIENT NAME: Keith Kevin DATE: May 23, 2025 TIME: 12:35 PM [facility] 05-22-2025 Note HNO ID: [id number] Author: CELIA HUMPHREYS RN Service: Care Management [...] Relation: Relative Admission Status: Observation Insurance Provider: [facility] MEDICARE PPO Discharge Planning requested by: Potential Transition Plans Chcf Facility/Intermediate Care Facility Advance Directives Current Advance Directive: Health Care Power of Nurse Discharge, Living Will In Chart: Yes Up To [...] Planning Patient Goal(s): Increase strength, Better mobility [place] of Choice Explained: [place] of Choice Given: Yes Level of Care Discussed: Chcf Facility Are you interested in bedside delivery [...] transport and groceries. His brother is in [facility](memory care). PA examined pt and discussed plan of care. Discussed probable need for rehab. Pt is agreeable. Awaiting therapy evals. Will need precert. Spoke with son Melchor via phone- updated. Discussed rehab- son agreeable. Discussed foc of choice and offered snf list. Son declined he would prefer pt to stay at [facility] for rehab. Explained insurance precert process. Son confirmed pts PLOF and living situation. Son works long hours and is not able to assist pt much at all. He is interested in a superintendent terminal plan ([place], [place], private duty). SW to follow with son next week. SIGNATURE: Celia Humphreys RN PATIENT NAME: Keith Kevin DATE: May 22, 2025 TIME: 1:39 PM [facility] 05-21-2025 Note SARS-COV-2 (AGENT OF COVID-19) RNA: Not detected INFLUENZA A RNA: Not detected INFLUENZA B RNA: Not detected RESPIRATORY SYNCYTIAL VIRUS (RSV) RNA: Not detected [facility] Comment on above: Performed By: #### 9 [id number] ####[facility] LABIA [id number] [place] [address] [facility] 05-20-2025 Note HNO ID: [id number] Author: RUTHY BOCANEGRA APRN.ARETHA Service: ? Author Type: Nurse Practitioner Type: Progress Notes Filed: 05/23/2025 11:00 Note Text: SHOULDER/ELBOW INITIAL CONSULT Recording using ambient WALTOP software for draft documentation of the visit was discussed with the patient/authorized medical sales representative; all questions welcomed and answered. Patient/authorized medical sales representative agreed to proceed SERVICE DATE: 05/20/2025 [...] NO HEMORRHAGE Bradycardia Hypertension Sleep Apnea Acute NC Anterior Wall First Episode Care (Hcc) Ashd (Arteriosclerotic Heart Disease) Seborrheic Keratoses Viral Warts, Unspecified Lipoma Other Seborrheic Dermatitis Solar Lentigo Actinic Skin Damage Melanocytic Nevi of Upper Extremity Or Shoulder Xerosis Cutis History of Acute Anterior Wall NC Bph W Urinary Obs/Luts Controlled Type 2 [...] CORONARY ENDARTERCOMY OPEN ANY METHOD 09/2012 Angioplasty, [place] EGD 06/1999 EGD TRANSORAL BIOPSY SINGLE/MULTIPLE 05/28/2013 HERNIA REPAIR HX 1994 x6 LEFT HEART CATH,PERCUTANEOUS 09/2012 Cardiac cath, L heart, [place] RPR 1ST INGUN HRNA AGE 4 YRS/> [...] as needed (pa (more content not included)... [facility] 04-09-2025 Progress note [facility] 04-09-2025 Progress note Note Date/Time April 09, 2025 2:02pm [facility] ealt System [facility] [address] [place] [address] OFFICE VISIT Date of Service: 04/09/25 MR#: [id number] Acct: [id number] Name: KEITH KEVIN Rep #: [id number] : 1940 Provider: Dr. Jj Grajeda MD Age/Sex: 84/M Location: [facility] Status: Signed HPI HPI History of Present [...] syndrome. He states that he had an NC in 2015 when he was in [place], he states he underwent a balloon angioplasty. [...] Monitor Intake Visit Reasons: 1 Y FU Aligning Inspector Required: No Is patient in pain?: No [...] The estimated ejection fraction is 55 %. [place] : Severely Hypokinetic. Mid-Anterior : Hypokinetic Mild [...] Status: Chronic Qualifiers: Coronary Disease-Associated Artery/Lesion type: [place] artery [place] vs. transplanted heart: [place] heart Qualified Code(s): I25.10 - Atherosclerotic heart disease of [place] coronary artery without angina pectoris Plan: His most recent stress test from 05/22/2022 was negative for ischemia. He has not had any angina and the plan to be to continue him on the current medical therapy. (2) Cardiac pacemaker in situ: Status: Chronic Comment: PPM Ventricular lead - Business Applications Specialist: Medtronic, Model # CapSureFix Novus MRI SureScan 5076-52 , Serial # [id number];PPM Atrial lead - Business Applications Specialist: [employer]tr[employer], Model # CapSureFix Novus MRI SureScan 5076-45 , Serial # [id number]; PPM Generator -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 a medically appropriate examination, counseling and educating the pat ient/family/caregiver, and ordering medications, tests, or procedures. documented in this encounterWhite Hospital04-05-2022 History of Present illness Narrative* Marisol Ribeiro [...] past 12 months Patient following up with [facility] cardiology for CAD and SSS with [...] 05/28/2013 CORONARY ENDARTERCOMY OPEN ANY METHOD 09/2012 [facility], [place] EGD 06/1999 EGD TRANSORAL BIOPSY SINGLE/MULTIPLE 05/28/2013 HERNIA REPAIR HX 1994 x6 LEFT HEART CATH,PERCUTANEOUS 09/2012 Cardiac cath, [facility], [place] RPR 1ST INGUN HRNA AGE 4 YRS/> [...] Lymph 1.00 - 4.00 k/uL 0.89 (L) [place]% % 9.5 Abs [place] <0.87 k/uL 0.26 Eosin% % 3.3 Abs [...] arise. - Discussed diabetic education issues of superintendent terminal diabetic complications, hypoglycemic symptoms, hyperglycemic symptoms, diet, [...] as scheduled. 4. SSS (sick sinus syndrome) ([facility]) - ICD9: 427.81, ICD10: I49.5 asymptomatic with [...] statin. Marisol Ribeiro MD documented in this encounterWhite Hospital03-24-2021 Evaluation note* Diagnosis Onset Date Resolution Status Atherosclerosis of coronary artery without angina pectoris chronic Cardiac pacemaker in situ October 06, 2020 chronic Sick sinus syndrome acute Cardiac pacemaker in situ October 06, 2020 [facility] Work Phone: 1(209) 935-354503-24-2021 Evaluation note* Diagnosis Onset Date Resolution Status Sick sinus syndrome acute Cardiac pacemaker in situ October 06, 2020 chronic Sick sinus syndrome acute Cardiac pacemaker in situ October 06, 2020 [facility] Work Phone: 1(562) 138-553109-26-2017 History of Past illness Narrative* Problem Noted [...] 118 range. Patient's last HgA1C was HBA1C [place] (%) Date Value 05/09/2011 6.0 01/02/2011 6.0 Hemoglobin A1C (%) Date Value 04/08/2012 5.9 10/14/2004 6.4* ) Last Ophthalmology exam was a few years ago in [place], and he reported no problems. Will seek appointment with [facility] in the near future. Other and unspecified hyperlipidemia 04/10/2017 documented as of this encounter (statuses as of 10/22/2021) [facility]09-26-2017 History of Past illness Narrative* Problem Noted [...] 118 range. Patient's last HgA1C was HBA1C, [place] (%) Date Value 05/09/2011 6.0 01/02/2011 6.0 Hemoglobin A1C (%) Date Value 04/08/2012 5.9 10/14/2004 6.4* ) Last Ophthalmology exam was a few years ago in [place], and he reported no problems. Will seek appointment with [facility] in the near future. Other and unspecified hyperlipidemia 04/10/2017 documented as of this encounter (statuses as of 04/21/2022) [facility]09-26-2017 History of Past illness Narrative* Problem Noted [...] 118 range. Patient's last HgA1C was HBA1C, [place] (%) Date Value 05/09/2011 6.0 01/02/2011 6.0 Hemoglobin A1C (%) Date Value 04/08/2012 5.9 10/14/2004 6.4* ) Last Ophthalmology exam was a few years ago in [place], and he reported no problems. Will seek appointment with [facility] in the near future. Other and unspecified hyperlipidemia 04/10/2017 documented as of this encounter (statuses as of 07/28/2022) [facility] History of Past illness Narrative* Problem Noted [...] exam was a few years ago in [place], and he reported no problems. Will seek appointment with [facility] in the near future. Other and unspecified hyperlipidemia 04/10/2017 documented as of this encounter (statuses as of 08/22/2022) [facility] History of Past illness Narrative* Problem Noted [...] exam was a few years ago in [place], and he reported no problems. Will seek appointment with [facility] in the near future. Other and unspecified hyperlipidemia 04/10/2017 documented as of this encounter (statuses as of 08/23/2022) [facility] History of Past illness Narrative* Problem Noted [...] exam was a few years ago in [place], and he reported no problems. Will seek appointment with [facility] in the near future. Other and unspecified hyperlipidemia 04/10/2017 documented as of this encounter (statuses as of 09/05/2022) [facility] History of Past illness Narrative* Problem Noted [...] 118 range. Patient's last HgA1C was [facility] [place] (%) Date Value 05/09/2011 6.0 01/02/2011 6.0 Hemoglobin A1C (%) Date Value 04/08/2012 5.9 10/14/2004 6.4* ) Last Ophthalmology exam was a few years ago in [place], and he reported no problems. Will seek appointment with [facility] in the near future. Other and unspecified hyperlipidemia 04/10/2017 documented as of this encounter (statuses as of 11/09/2022) [facility] History of Past illness Narrative* Problem Noted [...] 118 range. Patient's last HgA1C was [facility] [place] (%) Date Value 05/09/2011 6.0 01/02/2011 6.0 Hemoglobin A1C (%) Date Value 04/08/2012 5.9 10/14/2004 6.4* ) Last Ophthalmology exam was a few years ago in [place], and he reported no problems. Will seek appointment with [facility] in the near future. Other and unspecified hyperlipidemia 04/10/2017 documented as of this encounter (statuses as of 11/14/2022) [facility] History of Past illness Narrative* Problem Noted [...] 118 range. Patient's last HgA1C was HBA1C [place] (%) Date Value 05/09/2011 6.0 01/02/2011 6.0 Hemoglobin A1C (%) Date Value 04/08/2012 5.9 10/14/2004 6.4* ) Last Ophthalmology exam was a few years ago in [place], and he reported no problems. Will seek appointment with [facility] in the near future. Other and unspecified hyperlipidemia 04/10/2017 documented as of this encounter (statuses as of 11/20/2022) [facility] History of Past illness Narrative* Problem Noted [...] 118 range. Patient's last HgA1C was HBA1C, [place] (%) Date Value 05/09/2011 6.0 01/02/2011 6.0 Hemoglobin A1C (%) Date Value 04/08/2012 5.9 10/14/2004 6.4* ) Last Ophthalmology exam was a few years ago in [place], and he reported no problems. Will seek appointment with [facility] in the near future. Other and unspecified hyperlipidemia 04/10/2017 documented as of this encounter (statuses as of 12/14/2022) [facility] History of Past illness Narrative* Problem Noted [...] 118 range. Patient's last HgA1C was HBA1C [place] (%) Date Value 05/09/2011 6.0 01/02/2011 6.0 Hemoglobin A1C (%) Date Value 04/08/2012 5.9 10/14/2004 6.4* ) Last Ophthalmology exam was a few years ago in [place], and he reported no problems. Will seek appointment with [facility] in the near future. Other and unspecified hyperlipidemia 04/10/2017 documented as of this encounter (statuses as of 02/14/2023) [facility] History of Past illness Narrative* Problem Noted [...] 118 range. Patient's last HgA1C was HBA1C [place] (%) Date Value 05/09/2011 6.0 01/02/2011 6.0 Hemoglobin A1C (%) Date Value 04/08/2012 5.9 10/14/2004 6.4* ) Last Ophthalmology exam was a few years ago in [place], and he reported no problems. Will seek appointment with [facility] in the near future. Other and unspecified hyperlipidemia 04/10/2017 documented as of this encounter (statuses as of 02/14/2023) [facility] of Past illness Narrative* Problem Noted [...] exam was a few years ago in [place], and he reported no problems. Will seek appointment with [facility] in the near future. Other and unspecified hyperlipidemia 04/10/2017 documented as of this encounter (statuses as of 02/21/2023) [facility] of Past illness Narrative* Problem Noted [...] exam was a few years ago in [place], and he reported no problems. Will seek appointment with [facility] in the near future. Other and unspecified hyperlipidemia 04/10/2017 documented as of this encounter (statuses as of 05/17/2023) [facility] of Past illness Narrative* Problem Noted [...] 118 range. Patient's last HgA1C was [facility] [place] (%) Date Value 05/09/2011 6.0 01/02/2011 6.0 Hemoglobin A1C (%) Date Value 04/08/2012 5.9 10/14/2004 6.4* ) Last Ophthalmology exam was a few years ago in [place], and he reported no problems. Will seek appointment with [facility] in the near future. Other and unspecified hyperlipidemia 04/10/2017 documented as of this encounter (statuses as of 05/24/2023) [facility] of Past illness Narrative* Problem Noted [...] 118 range. Patient's last HgA1C was HBA1C [place] (%) Date Value 05/09/2011 6.0 01/02/2011 6.0 Hemoglobin A1C (%) Date Value 04/08/2012 5.9 10/14/2004 6.4* ) Last Ophthalmology exam was a few years ago in [place], and he reported no problems. Will seek appointment with [facility] in the near future. Other and unspecified hyperlipidemia 04/10/2017 documented as of this encounter (statuses as of 10/16/2023) [facility] of Past illness Narrative* Problem Noted [...] 118 range. Patient's last HgA1C was HBA1C, [place] (%) Date Value 05/09/2011 6.0 01/02/2011 6.0 Hemoglobin A1C (%) Date Value 04/08/2012 5.9 10/14/2004 6.4* ) Last Ophthalmology exam was a few years ago in [place], and he reported no problems. Will seek appointment with [facility] in the near future. Other and unspecified hyperlipidemia 04/10/2017 documented as of this encounter (statuses as of 10/25/2023) [facility]* Diagnosis Controlled type 2 diabetes mellitus without complication, without long-term current use of insulin (HCC)- Primary Prostate cancer (HCC) Malignant neoplasm of prostate ASHD (arteriosclerotic heart disease) Coronary atherosclerosis of unspecified type of vessel, [place] or graft SSS (sick sinus syndrome) (HCC) Sinoatrial node dysfunction Pacemaker Cardiac pacemaker in situ Primary hypertension Unspecified essential hypertension Mixed hyperlipidemia documented in this encounter [facility]* Diagnosis Controlled type 2 diabetes mellitus without complication, without long-term current use of insulin (HCC)- Primary Itchy skin Unspecified pruritic disorder Encounter for immunization Need for other specified prophylactic vaccination against single bacterial disease Mixed hyperlipidemia ASHD (arteriosclerotic heart disease) Coronary atherosclerosis of unspecified type of vessel, [place] or graft Pacemaker Cardiac pacemaker in situ Prostate cancer (HCC) Malignant neoplasm of prostate documented in this encounter [facility]Evaluation [facility]* Diagnosis Controlled type 2 diabetes mellitus without complication, without long-term current use of insulin (HCC)- Primary ASHD (arteriosclerotic heart disease) Coronary atherosclerosis of unspecified type of vessel, [place] or graft Pacemaker Cardiac pacemaker in situ Prostate cancer (HCC) Malignant neoplasm of prostate documented in this encounter [facility]* Diagnosis Controlled type 2 diabetes mellitus without complication, without long-term current use of insulin (HCC)- Primary Diabetes mellitus type 2 (HCC) documented in this encounter [facility]* Diagnosis Left hip pain- Primary Pain in joint, pelvic region and thigh documented in this encounter [facility] note* Diagnosis Left hip pain Pain in joint, pelvic region and thigh documented in this encounter [facility] note* Diagnosis Controlled type 2 diabetes mellitus without complication, without long-term current use of insulin (HCC)- Primary Mixed hyperlipidemia SSS (sick sinus syndrome) (HCC) Sinoatrial node dysfunction ASHD (arteriosclerotic heart disease) Coronary atherosclerosis of unspecified type of vessel, [place] or graft Pacemaker Cardiac pacemaker in situ documented in this encounter [facility] note* Diagnosis Controlled type 2 diabetes mellitus without complication, without long-term current use of insulin ([facility])- Primary Prostate cancer (HCC) Malignant neoplasm of prostate Mixed hyperlipidemia ASHD (arteriosclerotic heart disease) Coronary atherosclerosis of unspecified type of vessel, [place] or graft Sick sinus syndrome (HCC) Sinoatrial node dysfunction Pacemaker Cardiac pacemaker in situ documented in this encounter [facility] note* Diagnosis Controlled type 2 diabetes mellitus without complication, without long-term current use of insulin ([facility])- Primary Encounter for immunization Need for other specified prophylactic vaccination against single bacterial disease ASHD (arteriosclerotic heart disease) Coronary atherosclerosis of unspecified type of vessel, [place] or graft Prostate cancer (HCC) Malignant neoplasm of prostate Pacemaker Cardiac pacemaker in situ Sick sinus syndrome (HCC) Sinoatrial node dysfunction Fall, initial encounter [facility] Diagnosis Controlled type 2 diabetes mellitus without complication, without long-term current use of insulin ([facility])- Primary Sick sinus syndrome (HCC) Sinoatrial node dysfunction Prostate cancer (HCC) Malignant neoplasm of prostate ASHD (arteriosclerotic heart disease) Coronary atherosclerosis of unspecified type of vessel, [place] or graft Pacemaker Cardiac pacemaker in situ Statin declined Mixed hyperlipidemia Depression screening Screening for depression documented in this encounter [facility] note* Diagnosis 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, not stated as uncontrolled Bradycardia Other specified cardiac dysrhythmias Sleep apnea Unspecified sleep apnea HYPERLIPIDEMIA NEC/NOS Other and unspecified hyperlipidemia Hypertension Unspecified essential hypertension Need for prophylactic vaccination and inoculation against influenza Acute [place] anterior wall first episode care (HCC)- Primary [...] complication, without long-term current use of insulin ([facility]) Encounter for immunization Need for other specified prophylactic vaccination against single bacterial disease Candidal intertrigo Candidiasis of skin and nails Weight loss Loss of weight documented in this encounter [facility] note* Diagnosis 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, not stated as uncontrolled Bradycardia Other specified cardiac dysrhythmias Sleep apnea Unspecified sleep apnea HYPERLIPIDEMIA NEC/NOS Other and unspecified hyperlipidemia Hypertension Unspecified essential hypertension Need for prophylactic vaccination and inoculation against influenza Acute [place] anterior wall first episode care ([facility])- Primary Acute myocardial infarction of other anterior wall, initial episode of care Skin lesion of back Unspecified disorder of skin and subcutaneous tissue Bradycardia Other specified cardiac dysrhythmias SUMMARY DM w/o complication type I 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 of complication, not stated as uncontrolled Anemia, unspecified type- Primary documented in this encounter [facility] note* Diagnosis 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, not stated as uncontrolled Bradycardia Other specified cardiac dysrhythmias Sleep apnea Unspecified sleep apnea HYPERLIPIDEMIA NEC/NOS Other and unspecified hyperlipidemia Hypertension Unspecified essential hypertension Need for prophylactic vaccination and inoculation against influenza Acute [place] anterior wall first episode care ([facility])- Primary Acute myocardial infarction of other anterior [...] Anemia, unspecified type documented in this encounter [facility] noteNo assessment information availableWatsonville [facility] [place] Work Phone: Evaluation note* Diagnosis 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, not stated as uncontrolled Bradycardia Other specified cardiac dysrhythmias Sleep apnea Unspecified sleep apnea HYPERLIPIDEMIA NEC/NOS Other and unspecified hyperlipidemia Hypertension Unspecified essential hypertension Need for prophylactic vaccination and inoculation against influenza Acute [place] anterior wall first episode care (HCC)- Primary [...] Coronary atherosclerosis of unspecified type of vessel, [place] or graft Sick sinus syndrome (HCC) Sinoatrial node dysfunction Pacemaker Cardiac pacemaker in situ Prostate cancer (HCC) Malignant neoplasm of prostate Diarrhea, unspecified type Chronic bilateral low back pain with bilateral sciatica documented in this encounter [facility] for referral (narrative)No reason for referral information [facility] Work Phone: Advance Directives No Advanced Directives Records FoundDocuments on File Type Date Recorded 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 Expl anation Advance Directive(s) Advance Directive(s) 08/14/2016 2:29 PM Advance Directive Response Recorded Date/ Time Advance Directives No May 6:42am Living Will No September 02, 023 11:49am Power of Nurse Discharge No September 02, 2022 11:49am Advance Directive Response Recorded Date/ Time Advance Directives No May 7:42am Living Will No September 02, 023 12:49pm Power of Nurse Discharge No September 02, 2022 12:49pm Advance Directive Response Recorded Date/ Time Advance Directives No May 7:42am Living Will No January 30, 2023 1:21pm Power of Nurse Discharge No January 30 1:21pm Advance Directive Response Recorded Date/ Time Advance Directives No May 7:42am Advance Directive Response Recorded Date/ Time Living Will No December 10, 2023 1 1:16am Do you have a Healthcare Power of Nurse Discharge? No December 10, 2023 11:16am Advance Directives No May 7:42am Chief Complaint and Reason for Visit Chief Complaint 6 M FU HEART DISEASE OF [place] CORONARY ARTERY HEART DISEASE OF [place] CORONARY ARTERY 3 mos remote PPM f/u [...] HIGH COMPLEX 45 MINS Marisol Ribeiro MD [address] [place] [address] [facility] [address] [place] [address] Referral ID Status Reason Start Date Expiration Date Visits Requested Visits Authorized [id number] Pending Review Auto-Generat ed Referral 07/30/2024 07/30/2025 1 1 Summary Purpose Additional Source Comments Source Comments (unrecognize d section and content) In the event this informatio n is protected by the Federal Confidentiality of Alcohol and Drug Abuse Patient Records regulations: The Federal rules restrict any use of the information to criminally investigate or prosecute any alcohol or drug abuse patient.[facility] HospitalIn the event this information is protected by the Federal Confidentiality of Alcohol and Drug Abuse Patient Records regulations: The Federal rules restrict any use of the information to criminally investigate or prosecute any alcohol or drug abuse patient.[facility] HospitalIn the event this information is protected by the Federal Confidentiality of Alcohol and Drug Abuse Patient Records regulations: The Federal rules restrict any use of the information to criminally investigate or prosecute any alcohol or drug abuse patient.[facility] HospitalIn the event this information is protected by the Federal Confidentiality of Alcohol and Drug Abuse Patient Records regulations: The Federal rules restrict any use of the information to criminally investigate or prosecute any alcohol or drug abuse patient.[facility] HospitalIn the event this information is protected by the Federal Confidentiality of Alcohol and Drug Abuse Patient Records regulations: The Federal rules restrict any use of the information to criminally investigate or prosecute any alcohol or drug abuse patient.[facility] HospitalIn the event this information is protected by the Federal Confidentiality of Alcohol and Drug Abuse Patient Records regulations: The Federal rules restrict any use of the information to criminally investigate or prosecute any alcohol or drug abuse patient.[facility] HospitalIn the event this information is protected by the Federal Confidentiality of Alcohol and Drug Abuse Patient Records regulations: The Federal rules restrict any use of the information to criminally investigate or prosecute any alcohol or drug abuse patient.[facility] HospitalIn the event this information is protected by the Federal Confidentiality of Alcohol and Drug Abuse Patient Records regulations: The Federal rules restrict any use of the information to criminally investigate or prosecute any alcohol or drug abuse patient.[facility] HospitalIn the event this information is protected by the Federal Confidentiality of Alcohol and Drug Abuse Patient Records regulations: The Federal rules restrict any use of the information to criminally investigate or prosecute any alcohol or drug abuse patient.[facility] HospitalIn the event this information is protected by the Federal Confidentiality of Alcohol and Drug Abuse Patient Records regulations: The Federal rules restrict any use of the information to criminally investigate or prosecute any alcohol or drug abuse patient.[facility] HospitalIn the event this information is protected by the Federal Confidentiality of Alcohol and Drug Abuse Patient Records regulations: The Federal rules restrict any use of the information to criminally investigate or prosecute any alcohol or drug abuse patient.[facility] HospitalIn the event this information is protected by the Federal Confidentiality of Alcohol and Drug Abuse Patient Records regulations: The Federal rules restrict any use of the information to criminally investigate or prosecute any alcohol or drug abuse patient.[facility] HospitalIn the event this information is protected by the Federal Confidentiality of Alcohol and Drug Abuse Patient Records regulations: The Federal rules restrict any use of the information to criminally investigate or prosecute any alcohol or drug abuse patient.[facility] HospitalIn the event this information is protected by the Federal Confidentiality of Alcohol and Drug Abuse Patient Records regulations: The Federal rules restrict any use of the information to criminally investigate or prosecute any alcohol or drug abuse patient.[facility] HospitalIn the event this information is protected by the Federal Confidentiality of Alcohol and Drug Abuse Patient Records regulations: The Federal rules restrict any use of the information to criminally investigate or prosecute any alcohol or drug abuse patient.[facility] HospitalIn the event this information is protected by the Federal Confidentiality of Alcohol and Drug Abuse Patient Records regulations: The Federal rules restrict any use of the information to criminally investigate or prosecute any alcohol or drug abuse patient.[facility] HospitalIn the event this information is protected by the Federal Confidentiality of Alcohol and Drug Abuse Patient Records regulations: The Federal rules restrict any use of the information to criminally investigate or prosecute any alcohol or drug abuse patient.[facility] HospitalIn the event this information is protected by the Federal Confidentiality of Alcohol and Drug Abuse Patient Records regulations: The Federal rules restrict any use of the information to criminally investigate or prosecute any alcohol or drug abuse patient.[facility] HospitalIn the event this information is protected by the Federal Confidentiality of Alcohol and Drug Abuse Patient Records regulations: The Federal rules restrict any use of the information to criminally investigate or prosecute any alcohol or drug abuse patient.[facility] HospitalIn the event this information is protected by the Federal Confidentiality of Alcohol and Drug Abuse Patient Records regulations: The Federal rules restrict any use of the information to criminally investigate or prosecute any alcohol or drug abuse patient.[facility] HospitalIn the event this information is protected by the Federal Confidentiality of Alcohol and Drug Abuse Patient Records regulations: The Federal rules restrict any use of the information to criminally investigate or prosecute any alcohol or drug abuse patient.[facility] HospitalIn the event this information is protected by the Federal Confidentiality of Alcohol and Drug Abuse Patient Records regulations: The Federal rules restrict any use of the information to criminally investigate or prosecute any alcohol or drug abuse patient.[facility] HospitalIn the event this information is protected by the Federal Confidentiality of Alcohol and Drug Abuse Patient Records regulations: The Federal rules restrict any use of the information to criminally investigate or prosecute any alcohol or drug abuse patient.[facility] HospitalIn the event this information is protected by the Federal Confidentiality of Alcohol and Drug Abuse Patient Records regulations: The Federal rules restrict any use of the information to criminally investigate or prosecute any alcohol or drug abuse patient.[facility] HospitalIn the event this information is protected by the Federal Confidentiality of Alcohol and Drug Abuse Patient Records regulations: The Federal rules restrict any use of the information to criminally investigate or prosecute any alcohol or drug abuse patient.[facility] HospitalIn the event this information is protected by the Federal Confidentiality of Alcohol and Drug Abuse Patient Records regulations: The Federal rules restrict any use of the information to criminally investigate or prosecute any alcohol or drug abuse patient.[facility] HospitalIn the event this information is protected by the Federal Confidentiality of Alcohol and Drug Abuse Patient Records regulations: The Federal rules restrict any use of the information to criminally investigate or prosecute any alcohol or drug abuse patient.[facility] Reason for Visit (unrecogniz ed section and content) Reason Comments F/U 6 months Specialty Diagnoses / Procedures Referred By Oscar t Referred To Contact Family Practice / FAMILY MEDICINE Diagnoses 6 month f/up Procedures 4C EST Self Marisol Ribeiro MD [address] [place] [address] Referral ID Status Reason Start Date Expiration Date V isits Requested Visits Authorized [id number] Closed Patient Cleared INN/SMCP Payor Auth Obtained 10/18/2021 07/15/2022 1 1 Reason Comments 6 Month Exam Reason Comments Results Orders Reason Comments F/U 3 Month Reason Comments ER F/U [facility] 09/02/22 for left hip pain Reason Onset Date Comments Refill Request 11/08/2022 Reason Comments Results Reason Onset Date Comments Refill Request 12/14/2022 Reason Comments Follow Up Reason Comments Patient Update Reason Onset Date Comments Population Health Navigation Outreach 10/16/2023 [employer] care gaps Reason Onset Date Comments Refill Request 10/24/2023 Reason Comments ER F/U [facility] 03/04/24[facility] d/c 06/21/24 Reason Comments Patient Update Patient Question Reason Comments Back Pain Reason Onset Date Comments Refill Request 08/26/2024 Reason Comments Patient Call Care Teams (unrecognized sec tion and content) Ferry Hand Relationship Specialty Start Date End Date Marisol Ribeiro MD [address] [place] [address] PCP - General Family Practice 07/12/16 Ferry Hand Relationship Specialty Start Date End Date Marisol Ribeiro MD [address] [place] [address] PCP - General Family Medicine 07/12/16 Ferry Hand Relationship Specialty Start Date End Date Marisol Ribeiro MD [address] [place] [address] PCP - General Family Medicine 07/12/16 Ferry Hand Relationship Specialty Start Date End Date Marisol Ribeiro MD [address] [place] [address] PCP - General Family Medicine 07/12/16 Ferry Hand Relationship Specialty Start Date End Date Marisol Ribeiro MD [address] [place] [address] PCP - General Family Medicine 07/12/16 Team Status: Active Member Role Status Dates No Primary Care Physician Family Provider Active Tegan Wing [employer] GASES, TESTER COMPRESSED GASES-C Primary Care Provider Active Team Status: Inactive [...] Heck DO Emergency Provider Active Tegan Herreralogar [employer] GASES, TESTER COMPRESSED GASES-C Primary Care Provider Active Ferry Hand Relationship Specialty Start Date End Date Marisol Ribeiro MD [address] [place] [address] PCP - General Family Medicine 07/12/16 Team Status: Inactive Member Role Status Dates Dr. Jude Ribeiro MD Referring Provider Active Jamee Lamar Attending Provider Active Tgean Wing [employer] G[employer], TESTER COMPRESSED GASES-C Primary Care Provider Active Team Status: Inactive Member Role Status Dates Dr. Tr Heck DO Attending Provider, Emergency Brooke franco Active Tegan Herreralogar [employer] COM[employer] GASES, TESTER COMPRESSED GASES-C Primary Care Provider Active Team Status: Inactive Member Role Status Dates Tegan Herreralogar TESTER COMPRESSED GASES, TESTER COMPRESSED GASES-C Primary Care Provider Active Haylee Foley [employer] GASES-C Attending Provider, Referrin g Provider Active Ferry Hand Relationship Specialty Start Date End Date Marisol Ribeiro MD [address] [place] [address] PCP - General Family Medicine 07/12/16 Ferry Hand Relationship Specialty Start Date End Date Marisol Ribeiro MD [address] [place] [address] PCP - General Family Medicine 07/12/16 Ferry Hand Relationship Specialty Start Date End Date Marisol Ribeiro MD [address] [place] [address] PCP - General Family Medicine 07/12/16 Team Status: Inactive Member Role Status Dates Dr. Jude Ribeiro MD Referring Provider Active Yuridia Gómez [employer] GASES, TESTER COMPRESSED GASES-C Attending Provider Active Tegan Wing TE[employer] COMPRESSED GASES, TESTER COMPRESSED GASES-C Primary Care Provider Active Team Status: Inactive Member Role Status Dates Tegan Patricioar [employer] GASES, TESTER COMPRESSED GASES-C Primary Care Provider, Referri ng Provider Active Jamee Lamar Attending Provider Active Team Status: Inactive Member Role Status Dates Tegan Herreralogar TE[employer] COMPRESSED GASES, TESTER COMPRESSED GASES-C Primary Care Provider Active Dr. Valdez Lopez , DO Emergency Provider Active Ferry Hand Relationship Specialty Start Date End Date Marisol Ribeiro MD [address] [place] [address] PCP - General Family Medicine 07/12/16 Ferry Hand Relationship Specialty Start Date End Date Marisol Ribeiro MD [address] [place] [address] PCP - General Family Medicine 07/12/16 Ferry Hand Relationship Specialty Start Date End Date Marisol Ribeiro MD [address] [place] [address] PCP - General Family Medicine 07/12/16 Ferry Hand Relationship Specialty Start Date End Date Marisol Ribeiro MD [address] [place] [address] PCP - General Family Medicine 07/12/16 Ferry Hand Relationship Specialty Start Date End Date Marisol Ribeiro MD [address] [place] [address] PCP - General Family Medicine 07/12/16 Ferry Hand Relationship Specialty Start Date End Date Marisol Ribeiro MD [address] [place] [address] PCP - General Family Medicine 07/12/16 Ferry Hand Relationship Specialty Start Date End Date Marisol Ribeiro MD [address] [place] [address] PCP - General Family Medicine 07/12/16 Ferry Hand Relationship Specialty Start Date End Date Marisol Ribeiro MD [address] [place] [address] PCP - General Family Medicine 07/12/16 Ferry Hand Relationship Specialty Start Date End Date Marisol Ribeiro MD [address] [place] [address] PCP - General Family Medicine 07/12/16 Podlogar, Tegan, RESIDENT PROGRAMS ASSISTANT.CLINICAL LABORATORY SCIENCE PROFESSOR [address] [place] [address] Incinerator Operator Family Medicine 06/21/24 Ferry Hand Relationship Specialty Start Date End Date Marisol Ribeiro MD [address] [place] [address] PCP - General Family Medicine 07/12/16 Podlogar, Tegan, RESIDENT PROGRAMS ASSISTANT.CLINICAL LABORATORY SCIENCE PROFESSOR [address] [place] [address] Incinerator Operator Family Medicine 06/21/24 Ferry Hand Relationship Specialty Start Date End Date Marisol Ribeiro MD [address] [place] [address] PCP - General Family Medicine 07/12/16 Podlogar, Tegan, RESIDENT PROGRAMS ASSISTANT.CLINICAL LABORATORY SCIENCE PROFESSOR [address] [place] [address] Incinerator Operator Family Medicine 06/21/24 Ferry Hand Relationship Specialty Start Date End Date Marisol Ribeiro MD [address] [place] [address] PCP - General Family Medicine 07/12/16 Podlogar, Tegan, RESIDENT PROGRAMS ASSISTANT.CLINICAL LABORATORY SCIENCE PROFESSOR [address] [place], [place] [address] Incinerator Operator Family Medicine 06/21/24 Ferry Hand Relationship Specialty Start Date End Date Marisol Ribeiro MD [address] [place], [place] [address] PCP - General Family Medicine 07/12/16 PodlogarTegan APRN.CLINICAL LABORATORY SCIENCE PROFESSOR [address] [place], [place] [address] Incinerator Operator Family Medicine 06/21/24 Team Status: Active Member Role/Relationship Status Dates No Primary Care Physician Family Provider Active Tegan Podlogar TESTER COMPRESSED GASES, TESTER COMPRESSED GASES-C Primary Care Provider Active Team Status: Inactive Member Role/Relationship Status Dates Tegan Podlogar TESTER COMPRESSED GASES, TESTER COMPRESSED GASES-C Primary Care Provider Active Start: October 16, 2024 End: October 16, 2024 Dr. Alcon Grajeda MD Attending Provider Active S tart: October 16, 2024 End: October 16, 2024 Team Status: Inactive Member Role/Relationship Status Dates Tegan Podlogangela TESTER COMPRESSED GASES, TESTER COMPRESSED GASES-C Primary Care Provider Active Start: January 14, 2025 End: January 14, 2025 Dr. Alcon Grajeda MD Attending Provider Active S tart: January 14, 2025 End: January 14, 2025 Ferry Hand Relationship Specialty Start Date End Date Marisol Ribeiro MD [address] [place], [place] [address] PCP - General Family Medicine 07/12/16 PodlogarTegan APRN.CLINICAL LABORATORY SCIENCE PROFESSOR [address] [place], [place] [address] Incinerator Operator Family Medicine 06/21/24 Arianna Reis APRN.CLINICAL LABORATORY SCIENCE PROFESSOR [address] [place], [place] [id number] [facility] 12/25/24 Ferry Hand Relationship Specialty Start Date End Date Marisol Ribeiro MD [address] [place], [place] [address] PCP - General Family Medicine 07/12/16 Tegan Wing APRN.CLINICAL LABORATORY SCIENCE PROFESSOR [address] [place], [place] [id number] [facility] 06/21/24 Arianna Reis APRN.CLINICAL LABORATORY SCIENCE PROFESSOR [address] [place], [place] [id number] [facility] 12/25/24 Team Status: Active Member Role/Relationship Status Dates Tegan Podlogar TESTER COMPRESSED GASES, TESTER COMPRESSED GASES-C Primary Care Provider Active Team Status: Inactive Member Role/Relationship Status Dates Tegan Podlogar TESTER COMPRESSED GASES, TESTER COMPRESSED GASES-C Primary Care Provider Active Start: January 14, 2025 End: January 14, 2025 Dr. Alcon Grajeda MD Attending Provider Active S tart: January 14, 2025 End: January 14, 2025 Team Status: Inactive Member Role/Relationship Status Dates Tegan Podlogar TESTER COMPRESSED GASES, TESTER COMPRESSED GASES-C Primary Care Provider Active Start: February 24, 2025 End: February 24, 2025 Tegan Podlogar TESTER COMPRESSED GASES, TESTER COMPRESSED GASES-C Referring Provider Active Start: February 24, 2025 End: February 24, 2025 Jamee Lamar Attending Provider Active Start: A 2024 End: February 24, 2025 Team Status: Inactive Member Role/Relationship Status Dates Tegan Podlogar TESTER COMPRESSED GASES, TESTER COMPRESSED GASES-C Primary Care Provider Active Start: February 24, 2025 End: February 24, 2025 Dr. Alcon Grajeda MD Attending Provider Active S tart: February 24, 2025 End: February 24, 2025 Team Status: Inactive Member Role/Relationship Status Dates Tegan Podlogar TESTER COMPRESSED GASES, TESTER COMPRESSED GASES-C Primary Care Provider Active Start: February 24, 2025 End: February 24, 2025 Tegan Podlogar TESTER COMPRESSED GASES, TESTER COMPRESSED GASES-C Referring Provider Active Start: February 24, 2025 End: February 24, 2025 Jamee Lamar Attending Provider Active Start: A 2024 End: February 24, 2025 Team Status: Active Member Role/Relationship Status Dates Dr. Jude Ribeiro MD Primary care physician Act mahin Team Status: Inactive Member Role/Relationship Status Dates Tegan Podlogar TESTER COMPRESSED GASES, TESTER COMPRESSED GASES-C Primary care physician Active Start: January 14, 2025 End: January 14, 2025 Dr. Alcon Grajeda MD Attending physician Active Start: January 14, 2025 End: January 14, 2025 Team Status: Inactive Member Role/Relationship Status Dates Tegan Podlogar TESTER COMPRESSED GASES, TESTER COMPRESSED GASES-C Primary care physician Active Start: February 24, 2025 End: February 24, 2025 Dr. Alcon Grajeda MD Attending physician Active Start: February 24, 2025 End: February 24, 2025 Team Status: Inactive Member Role/Relationship Status Dates Tegan Podlogar TESTER COMPRESSED GASES, TESTER COMPRESSED GASES-C Primary care physician Active Start: February 24, 2025 End: February 24, 2025 Tegan Podlogar TESTER COMPRESSED GASES, TESTER COMPRESSED GASES-C Referring Provider Active Start: February 24, 2025 End: February 24, 2025 Dr. Alcon Grajeda MD Attending physician Active Start: February 24, 2025 End: February 24, 2025 Team Status: Inactive Member Role/Relationship Status Dates Tegan Podlogar TESTER COMPRESSED GASES, TESTER COMPRESSED GASES-C Referring Provider Active Start: April 09, 2025 [...] section and content) DATE CREATED AUTHOR 04/23/2025 [facility] DATE CREATED AUTHOR AUTHOR'S AMADEO ATION 05/24/2025 [facility] DATE CREATED AUTHOR AUTHOR'S ORGANIZ ATION 05/28/2025 [facility] FOR RECORDS PERTAINING TO PATIENTS [...] BE BASED ON THE PRIMARY CLINICAL RECORDS. [facility]. provides no warranty or guarantee of the accuracy or completeness of information in this document.
[2025-06-18 09:32] LABS: Hematocrit 35.4 % (40-54); Hemoglobin 12.0 g/dL (13.0-16.5); Mean Corp Hgb Conc 33.9 g/dL (32-36); Mean Corpuscular Volume 103.2 fL (80-94); Mean Platelet Vol. 9.6 fl (6.2-12.0); Platelet Count 244 K/mm3 (150-450); RBC Distribution Width CV 12.4 % (11.6-14.6); RBC Distribution Width SD 46.9 fl (35.1-43.9); Red Blood Count 3.43 M/mm3 (4.6-6.2); White Blood Count 3.7 K/mm3 (4.4-11.0)
[2025-06-18 10:03] LABS: Anion Gap 12 (5-15); BUN 17 mg/dL (4-19); BUN/Creat Ratio 21.6 RATIO (10-20); Calcium,Total 9.8 mg/dL (7.6-11.0); Carbon Dioxide 23.3 mmol/L (21.0-32.0); Chloride 103 mmol/L (98-108); Glucose 121 mg/dL (70-99); Magnesium 2.2 mg/dL (1.5-2.2); Potassium 4.1 mmol/L (3.3-5.1); Vitamin B12 709 pg/mL (180-914); Vitamin D,25 Hydroxy 28.0 ng/mL (30-100)
== END ==
LOC: OLS.SW 05:00
PROVIDERS: PCP Family Medicine; Visit Provider Internal Medicine
DX: E11.9 Type 2 diabetes mellitus without complications (principal); E78.5 Hyperlipidemia, unspecified
CPT/HCPCS: 36415; 80048; 82306; 82607; 83735; 84443; 85027

== ENCOUNTER → 2025-06-25 | Outpatient (REF) | payer MEDICARE, SELFPAY ==
--- OUTSIDE RECORDS SUMMARY | 2025-06-25 04:04 | XMS RPT_ITS | CCD ---
Author Organization [facility] CliniSyor Care Team Providers Care Bundles Hanger Name Role Phone Marisol Ribeiro MD Primary Care Provider Dr. Jude Ribeiro Primary Care Provider Dr. Jude Ribeiro Referring Provider Dr. Alcon Grajeda Attending Provider Dr. Alcon Grajeda Other Provider Marisol Ribeiro MD Primary Care Provider Dr. Jude Ribeiro Primary Care Provider Dr. Jude Ribeiro Referring Provider Dr. Alcon Grajeda Attending Provider Jamee Lamar Attending Provider Unavailable [employer] EMPLOYEE SERVICE OFFICER, EMPLOYEE SERVICE OFFICER-C Tegan Primary Care Provider Dr. Jude Ribeiro Referring Provider Rico LONGORIA, EMPLOYEE SERVICE OFFICER-C Yuridia Attending Provider [employer] EMPLOYEE SERVICE OFFICER, EMPLOYEE SERVICE OFFICER-C Tegan Primary Care Provider [phone] [employer] EMPLOYEE SERVICE OFFICER, EMPLOYEE SERVICE OFFICER-C Tegan Referring Provider Jamee Lamar Attending Provider Unavailable Marisol Ribeiro MD Primary Care Provider [employer] COMPONENT ASSEMBLER.Tegan CARIAS Unavailable [employer] EMPLOYEE SERVICE OFFICER-Tegan York Primary Care Provider Dr. Alcon Grajeda MD Attending Provider Smiley COMPONENT ASSEMBLER.Arianna CARIAS Unavailable [employer] EMPLOYEE SERVICE OFFICER-Tegan York Primary Care Provider Nicci KRUEGER, Dr. Rondon Attending Provider [employer] EMPLOYEE SERVICE OFFICER-C, Tegan Referring Provider Jamee Lamar Attending Provider Unavailable [employer] EMPLOYEE SERVICE OFFICER-C, Tegan Primary Care Physician Nicci KRUEGER, Dr. Rondon Attending Physician Quintin KRUEGER, Dr. Roque Primary Care Physicia n [employer] EMPLOYEE SERVICE OFFICER, Tegan Primary Care Unavailable Severiano Florian Attending Unavailable NicciAlcon Attending Unavailable [employer] EMPLOYEE SERVICE OFFICER, Tegan Primary Care Unavailable NiccilAcon Attending Unavailable [employer] EMPLOYEE SERVICE OFFICER, Tegan Primary Care Unavailable [employer] EMPLOYEE SERVICE OFFICER, Tegan Referring Unavailable NicciAlcon rainey Attending Unavailable [employer] EMPLOYEE SERVICE OFFICER, Tegan Primary Care Unavailable NicciAlcon Attending Unavailable [employer] EMPLOYEE SERVICE OFFICER, Tegan Primary Care Unavailable [employer] EMPLOYEE SERVICE OFFICER, Tegan Primary Care Unavailable Roof EMPLOYEE SERVICE OFFICER, Babita Aguilar Attending Unavailable [employer] EMPLOYEE SERVICE OFFICER, Tegan Referring Unavailable [employer] EMPLOYEE SERVICE OFFICER, Tegan Primary Care Unavailable Alcon Grajeda Attending Unavailable Jude Ribeiro Primary Care Unavailable Alcon Grajeda Attending Unavailable Alcon Grajeda Attending Unavailable [employer] EMPLOYEE SERVICE OFFICER, Tegan Referring Unavailable Jude Ribeiro Primary Care [...] atorvastatin; Translations: [ATORVASTATIN] Drug Allergy 3 Intolerance [facility] (20 sources) clopidogrel; Translations: [CLOPIDOGREL BISULFATE] Drug Allergy 3 Intolerance [facility] (20 sources) Dicloxacillin; Translations: [DICLOXACILLIN] Drug Allergy 8 Diarrhea [facility] (3 sources) Penicillins; Translations: [PENICILLINS] Drug Allergy 1 Anaphylaxis [facility] (20 sources) red yeast rice; Translations: [RED YEAST RICE] Drug Allergy 1 Other: See Comments [facility] Comment on above: LEG PAIN (20 sources) Penicillins Drug Allergy 1 Anaphylaxis [facility] (8 sources) ceFAZolin Drug Allergy 3 Rash [facility] (8 sources) Penicillins Allergy to substance 3 Anaphylaxis [facility] (2 sources) Penicillins Drug Allergy 1 Anaphylaxis [facility] (1 source) atorvastatin Drug Allergy 5 [facility] Repository (1 source) Minnie albicans allergenic extract Drug Allergy 5 [facility] Rep[facility] (1 source) ceFAZolin Drug Allergy 5 [facility] Repository (1 source) clopidogrel Drug Allergy 5 [facility] Repository (1 source) Penicillins Drug allergy (disorder) 5 [facility] Repository Medications Current Medications Medication Drug Class(es) [...] mouth. docusate sodium 50 mg / sennosides, [facility] 8.6 mg oral tablet (5 sources) Start: [...] Comment on above: Take 1 tablet by [facility] twice daily as needed (for pain/inflammation). Take [...] Comment on above: PPM Ventricular lead - [employer]: [employer]tronic, Model # CapSureFix Novus MRI SureScan 5076-52 , Serial # [id number];PPM Atrial lead - [employer]: Medtronic, Model # CapSureFix Novus MRI SureScan 5076-45 , Serial # [id number]; PPM Generator - [employer]: [employer]tronic, Model # Radha XT DR MRI SureScan [id number] , Serial # [id number] Coronary atherosclerosis and other heart disease (20 sources) Coronary arteriosclerosis; Translations: [Atherosclerotic heart disease of [place] coronary artery without angina pectoris] Onset: 12-03-2012 [...] THERAPY NTon 05-27-2025 THERAPY NT HNO ID: [id number] Author: DELIA GONZALEZ PTA Service: Physical Therapy Author Type: Press Operator Helper Type: Therapy (PT/OT/Speech/Resp) Filed: 05/27/2025 11:07 Note Text: Attestation signed by Yumiko Salgado PT at 05/27/2025 1:47 PM I reviewed and agree with the documentation corresponding to this therapy visit. SIGNATURE: Yumiko Salgado, PT DATE: May 27, 2025 TIME: 1:47 PM [facility] Summary SERVICE DATE: 05/27/2025 SERVICE TIME: 953 to 1034 ROOM: [place] [address] PT 6 Clicks Score: 21 DISCHARGE RECOMMENDATIONS Home PT Recommended Discharge Disposition Comments: home vs [facility] pending patient's sons ability to assist while [...] presents to rehab. Relevant Past Medical History: [place], bradycardia, CAD, DDD, diverticulosis of colon, inguinal [...] and laundry. Visits his brother at a skilled nursing in [facility] at times. Poor historian. THERAPY DIAGNOSIS Reduced mobility-other, Unsteadiness on feet TREATMENT INTERVENTIONS Gait Training (30650), Therapeutic Exercise (67798) Timed Code Treatment (minutes): 41 Skilled Treatment [...] Byrd Yeyo (more content not included)... Normal [facility] NURSING PROGon 05-26-2025 NURSING PROG HNO ID: [id number] Author: SYDNEY RIVERA LPN Service: Nursing Author Type: Licensed Nurse Type: Nursing Progress Note Filed: 05/26/2025 18:29 Note Text: Son Melchor in to visit and reviewed medications. Patient had been receiving Metformin 500 mg 2 tabs twice daily, Magnesium 500 mg daily and Vitamin B12 1000 mg daily at home. LIP notified of home medications and dosing. Normal [facility] THERAPY NTon 05-26-2025 THERAPY NT HNO ID: [id number] Author: YUMIKO SALGADO, PT Service: Physical Therapy Author Type: Press Operator Helper Type: Therapy (PT/OT/Speech/Resp) Filed: 05/27/2025 13:48 Note Text: Attestation signed by Yumiko Slagado, PT at 05/27/2025 1:48 PM I reviewed and agree with the documentation corresponding to this therapy visit. SIGNATURE: Yumiko Salgado, PT DATE: May 27, 2025 TIME: 1:48 PM Physical Therapy [facility] Summary SERVICE DATE: 05/26/2025 SERVICE TIME: 1435 to 1505 ROOM: [place] [address] PT 6 Clicks Score: 20 DISCHARGE RECOMMENDATIONS [...] presents to rehab. Relevant Past Medical History: [place], bradycardia, CAD, DDD, diverticulosis of colon, inguinal [...] and laundry. 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 Poor historian. THERAPY DIAGNOSIS Reduced mobility-other, Unsteadiness on feet TREATMENT INTERVENTIONS Therapeutic Activity (83333), Gait Training (89307) Timed Code Treatment (minutes): 30 Skilled Treatment [...] MRN: [id number] (more content not included)... Normal [facility] THERAPY NT HNO ID: [id number] Author: AGATA BORRERO CCC-MOBILE HEALTH VEHICLE OPERATOR Service: Speech/Swallow Author Type: Speech Language Pathologist Type: Therapy (PT/OT/Speech/Resp) Filed: 05/26/2025 15:55 Note Text: Summary: EVALUATION Speech Therapy Speech Evaluation SERVICE DATE: 05/26/2025 SERVICE TIME: 1517 to 1549 ROOM: [place] [address] IMPRESSION Functional communication without limitations in: Speech, Language, Voice, Fluency Communication deficits identified: Cognitive deficits Assessment Comments: ST indicated for interventions and ongoing assessment of cognitive-linguisitc deficits to maximize patient's functional independence at [facility]. RECOMMENDATIONS Diet Recommendations N/A Swallow Strategy Recommendations [...] HOSPITAL COURSE 84 y/o male admitted to [facility] for evaluation of altered mental status [...] Therapy Consult: Confusion Relevant Past Medical History: [place], bradycardia, CAD, DDD, diverticulosis of colon, inguinal hernia, osteopenia, gastritis, prostate cancer, pacemaker, sick sinus syndrome, tinnitus, DMII HOME ENVIRONMENT / PRIOR FUNCTIONAL LEVEL Prior Functional Level: Required Assistance Patient Lives With: Self/Alone Assistance Required With: Shopping, Transportation Assistance Available: PRN (Son and Imdribrv-so-llz) Prior Swallowing Function/Diet Textures: Regular Consistency, Thin Liquids IDDSI Level 0 SUBJECTIVE Patient agreeable to evaluation. Pleasant and cooperative. THERAPY DIAGNOSIS Cognitive-Communication Deficits TREATMENT INTERVENTIONS Speech Language Danny (12395) Skilled Treatment Time (minutes): 32 TRAINING AND [...] Other (2-3x/ (more content not included)... Normal [facility] THERAPY NT HNO ID: [id number] Author: MARK SNOWDEN, PT, DPT Service: Physical Therapy Author Type: Physical Therapist Type: Therapy (PT/OT/Speech/Resp) Filed: 05/26/2025 09:29 Note Text: Physical Therapy [facility] Summary SERVICE DATE: 05/26/2025 SERVICE TIME: 846 ROOM: [place] [address] PT 6 Clicks Score: 20 DISCHARGE RECOMMENDATIONS Home PT Recommended Discharge Disposition Comments: home vs [facility] pending patient's sons ability to assist while [...] presents to rehab. Relevant Past Medical History: [place], bradycardia, CAD, DDD, diverticulosis of colon, inguinal [...] and laundry. Visits his brother at a skilled nursing in [facility] at times. Poor historian. THERAPY DIAGNOSIS Reduced mobility-other, Unsteadiness on feet TREATMENT INTERVENTIONS Therapeutic Exercise (33225), Gait Training (60656) Timed Code Treatment (minutes): 39 Skilled Treatment [...] Dosing, Assessment (more content not included)... Normal [facility] THERAPY NT HNO ID: [id number] Author: LU PATTON OT/Stanley Service: Occupational Therapy Author Type: Occupational Therapist Type: Therapy (PT/OT/Speech/Resp) Filed: 05/26/2025 08:01 Note Text: Occupational Therapy [facility] Summary SERVICE DATE: 05/26/2025 SERVICE TIME: 0705 to 0750 ROOM: [place] [address] OT 6 Clicks Score: 18 DISCHARGE RECOMMENDATIONS [...] presents to rehab. Relevant Past Medical History: [place], bradycardia, CAD, DDD, diverticulosis of colon, inguinal [...] and laundry. Visits his brother at a skilled nursing in [facility] at times. Poor historian. Baseline Cognition: Oriented to self, Oriented to place COGNITION Follows Commands: 2-step Commands, With Repetition THERAPY DIAGNOSIS Decreased activities of daily living (ADL) TREATMENT INTERVENTIONS Self Longterm Management (25033) Timed Code Treatment (minutes): 45 Skilled Treatment [...] Cuing T (more content not included)... Normal [facility] NUTRITIONon 05-25-2025 NUTRITION HNO ID: [id number] Author: SUPRIYA SWANN RD Service: Nutrition Therapy [...] (148 lb 5.9 oz) Dosing Weight Type: [place] body weight Estimated kilocalorie needs: Calorie Calculation [...] May 25, 2025 TIME: 9:17 AM Normal [facility] THERAPY NTon 05-25-2025 THERAPY NT HNO ID: [id number] Author: MARK SNOWDEN, PT, DPT Service: Physical Therapy Author Type: Physical Therapist Type: Therapy (PT/OT/Speech/Resp) Filed: 05/25/2025 15:18 Note Text: Physical Therapy [facility] Summary SERVICE DATE: 05/25/2025 SERVICE TIME: 1437 to 1503 ROOM: [place] [address] PT 6 Clicks Score: 20 DISCHARGE RECOMMENDATIONS [...] an 84 year old male admitted to [facility] rehab s/p work up for altered mental [...] presents to rehab. Relevant Past Medical History: [place], bradycardia, CAD, DDD, diverticulosis of colon, inguinal [...] and laundry. 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 Poor historian. THERAPY DIAGNOSIS Reduced mobility-other, Unsteadiness on feet TREATMENT INTERVENTIONS Evaluation, Gait Training (29060) Timed Code Treatment (minutes): 8 Skilled Treatment [...] Mobility Tr (more content not included)... Normal [facility] THERAPY NT HNO ID: [id number] Author: LU PATTON OT/L Service: Occupational Therapy Author Type: Occupational Therapist Type: Therapy (PT/OT/Speech/Resp) Filed: 05/25/2025 08:03 Note Text: Occupational Therapy [facility] Summary SERVICE DATE: 05/25/2025 SERVICE TIME: 709 ROOM: [place] [address] OT 6 Clicks Score: 18 DISCHARGE RECOMMENDATIONS [...] ecent right proximal humerus fracture admitted to [facility] for evaluation of altered mental status [...] swing on 05/24/2025. Relevant Past Medical History: [place], bradycardia, CAD, DDD, diverticulosis of colon, inguinal [...] not wear dentures- dental soft diet. 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 Visits his brother at a skilled nursing in [facility] at times. Poor historian Baseline Cognition: Oriented to self, Oriented to place COGNITION Follows Commands: 2-step Commands, With Repetition Cognitive Activities Performed: sequence ADL THERAPY DIAGNOSIS Decreased activities of daily living (ADL), Reduced mobility-other TREATMENT INTERVENTIONS Evaluation, Self Longterm Management (66247) Timed Code Treatment (minutes): 15 Skilled Treatment Time (minutes): 30 EXERCISE None performed this session TRAINING AND EDUCATION PROVIDED Activity Adaptation/Compensatory Strategies, Adaptive Equipment/DME THERAPEUTIC SKILLS USED Activity Dosing, Assessment of Tolerance Including Vitals Response to Ac (more content not included)... Normal [facility] Basic metabolic 2000 panelon 05-23-2025 Anion gap [Moles/Vol] 17 mmol/L High 8-15 [facility] Comment on above: Order Comment: Speci men Type: BLOOD SPECIMENOrdering Facility: [facility] Address: [address] [place] [address] Performed By: #### 2 4321-2 ####[facility] [place] LABCLIA [id number] [place] [address] [place] Calcium [Mass/Vol] 9.5 mg/dL Normal 8.5-10.2 [facility] Comment on above: Order Comment: Speci men Type: BLOOD SPECIMENOrdering Facility: [facility] Address: [address] [place] [address] Performed By: #### 2 4321-2 ####[facility] [place] LABCLIA [id number] [place] [address] [place] Chloride [Moles/Vol] 102 mmol/L Normal 98-107 [facility] Comment on above: Order Comment: Speci men Type: BLOOD SPECIMENOrdering Facility: [facility] Address: [address] [place] [address] Performed By: #### 2 4321-2 ####[facility] [place] LABCLIA [id number] [place] [address] [place] CO2 [Moles/Vol] 20 mmol/L Low 22-30 [facility] Comment on above: Order Comment: Speci men Type: BLOOD SPECIMENOrdering Facility: [facility] Address: [facility] [place] [id number] Performed By: #### 2 4321-2 ####[facility] LABCLIA [id number] [place] [address] [place] [facility] Creatinine [Mass/Vol] 0.68 mg/dL Low 0.73-1.22 [facility] Comment on above: Order Comment: Speci men Type: BLOOD SPECIMENOrdering Facility: [facility] Address: [address] [place] [address] Performed By: #### 2 4321-2 ####[facility] LABCLIA [id number] [place] [address] [facility] eGFRcr SerPlBld CKD-EPI 2020 91 mL/min/1.73m??? Normal >=60 [facility] Comment on above: Order Comment: Vera monterroso Type: BLOOD SPECIMENOrdering Facility: [facility] Address: [address] [place] [address] Result Comment: Cristy mated Glomerular Filtration Rate [...] actual GFR. Performed By: #### 2 4321-2 ####[facility] LABCLIA [id number] [place] [address] [place] Glucose [Mass/Vol] 204 mg/dL High 74-99 [facility] Comment on above: Order Comment: Speci men Type: BLOOD SPECIMENOrdering Facility: [facility] Address: [address] [place] [address] Result Comment: The [place] Diabetes Association (ADA) provides guidance for cutoff [...] Standards of Medical Care in Diabetes 2016, [place] [employer]. Diabetes Care. 2016.39(Suppl 1). Performed By: #### 2 4321-2 ####[facility] LABCLIA [id number] [place] [address] [place] [facility] Potassium [Moles/Vol] 4.0 mmol/L Normal 3.7-5.1 [facility] Comment on above: Order Comment: Vera monterroso Type: BLOOD SPECIMENOrdering Facility: [facility] Address: [address] [place] [address] Performed By: #### 2 4321-2 ####[facility] [employer] LABCLIA [id number] [place] [address] [facility] Sodium [Moles/Vol] 139 mmol/L Normal 136-144 [facility] Comment on above: Order Comment: Vera monterroso Type: BLOOD SPECIMENOrdering Facility: [facility] Address: [address] [place] [address] Performed By: #### 2 4321-2 ####[facility] LABCLIA [id number] [place] [address] [place] [facility] Urea nitrogen [Mass/Vol] 10 mg/dL Normal 9-24 [facility] Comment on above: Order Comment: Vera monterroso Type: BLOOD SPECIMENOrdering Facility: [facility] Address: [address] [place] [address] Performed By: #### 2 4321-2 ####[facility] LABCLIA [id number] [place] [address] [facility] THERAPY NTon 05-23-2025 THERAPY NT HNO ID: [id number] Author: LU PATTON OT/Stanley Service: Occupational Therapy Author Type: Occupational Therapist Type: Therapy (PT/OT/Speech/Resp) Filed: 05/23/2025 09:31 Note Text: Occupational Therapy [facility] Treatment Summary SERVICE DATE: 05/23/2025 SERVICE TIME: 857 ROOM: [place] [address] OT 6 Clicks Score: 15 DISCHARGE RECOMMENDATIONS [...] at all times due to humerus fracture, [place], DMII, IV L FA Right Upper Extremity [...] year old male presenting from home to [facility] ED/ OBS for weakness, mechanical fall 2 [...] for further workup. Relevant Past Medical History: [place], bradycardia, CAD, DDD, diverticulosis of colon, inguinal [...] not wear dentures- dental soft diet. 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 Visits his brother at a skilled nursing in [facility] at times. Poor historian Baseline Cognition: Oriented to self, Confused COGNITION Orientation Deficits: Confused, Not oriented to Time, Not oriented to Situation, Not oriented to Place Responsiveness: Alert Follows Commands: 1-step Commands Attention Deficits: Distractible Memory Deficits: Short Term, Recall of Recent Event (more content not included)... Normal [facility] Basic metabolic 2000 panelon 05-22-2025 Anion gap [Moles/Vol] 15 mmol/L Normal 8-15 [facility] Comment on above: Order Comment: Speci men Type: BLOOD SPECIMENOrdering Facility: [facility] Address: [address] [place] [address] Performed By: #### 2 4321-2 ####[facility] [place] LABCLIA [id number] [place] [address] [place] Calcium [Mass/Vol] 8.5 mg/dL Normal 8.5-10.2 [facility] Comment on above: Order Comment: Speci men Type: BLOOD SPECIMENOrdering Facility: [facility] Address: [address] [place] [address] Performed By: #### 2 4321-2 ####[facility] [place] LABCLIA [id number] [place] [address] [place] Chloride [Moles/Vol] 107 mmol/L Normal 98-107 [facility] Comment on above: Order Comment: Speci men Type: BLOOD SPECIMENOrdering Facility: [facility] Address: [address] [place] [address] Performed By: #### 2 4321-2 ####[facility] [place] LABCLIA [id number] [place] [address] [place] CO2 [Moles/Vol] 19 mmol/L Low 22-30 [facility] Comment on above: Order Comment: Speci men Type: BLOOD SPECIMENOrdering Facility: [facility] Address: [address] [place] [address] Performed By: #### 2 4321-2 ####[facility] [place] LABCLIA [id number] [place] [address] [place] Creatinine [Mass/Vol] 0.67 mg/dL Low 0.73-1.22 [facility] Comment on above: Order Comment: Speci men Type: BLOOD SPECIMENOrdering Facility: [facility] Address: [address] [place] [address] Performed By: #### 2 4321-2 ####[facility] [place] LABCLIA [id number] [place] [address] [place] eGFRcr SerPlBld CKD-EPI 2020 91 mL/min/1.73m??? Normal >=60 [facility] Comment on above: Order Comment: Vera monterroso Type: BLOOD SPECIMENOrdering Facility: [facility] Address: [address] [place] [address] Result Comment: Cristy mated Glomerular Filtration Rate [...] actual GFR. Performed By: #### 2 4321-2 ####[facility] LABCLIA [id number] [place] [address] [place] Glucose [Mass/Vol] 162 mg/dL High 74-99 [facility] Comment on above: Order Comment: Vera monterroso Type: BLOOD SPECIMENOrdering Facility: [facility] Address: [address] [place] [address] Result Comment: The [place] Diabetes Association (ADA) provides guidance for cutoff [...] Standards of Medical Care in Diabetes 2016, [place] [employer]. Diabetes Care. 2016.39(Suppl 1). Performed By: #### 2 4321-2 ####[facility] LABCLIA [id number] [place] [address] [place] Potassium [Moles/Vol] 3.4 mmol/L Low 3.7-5.1 [facility] Comment on above: Order Comment: Vera monterroso Type: BLOOD SPECIMENOrdering Facility: [facility] Address: [address] [place] [address] Performed By: #### 2 4321-2 ####[facility] [place] LABCLIA [id number] [place] [address] [place] [facility] Sodium [Moles/Vol] 141 mmol/L Normal 136-144 [facility] Comment on above: Order Comment: Vera loc Type: BLOOD SPECIMENOrdering Facility: [facility] Address: [address] [place] [address] Performed By: #### 2 4321-2 ####[facility] [place] LABCLIA [id number] [place] [address] [place] Urea nitrogen [Mass/Vol] 13 mg/dL Normal 9-24 [facility] Comment on above: Order Comment: Vera monterroso Type: BLOOD SPECIMENOrdering Facility: [facility] Address: [address] [place] [address] Performed By: #### 2 4321-2 ####[facility] [place] LABCLIA [id number] [place] [address] [facility] HISTORY PHYSICALon HISTORY PHYSICAL HNO ID: [id number] Author: ESTEFANI COBIAN PA-C Service: Hospital Medicine Author Type: Physician Baseball Winder Type: H&P Filed: 05/22/2025 11:21 Note Text: Attestation signed by Grabiel Leigh MD at 05/22/2025 4:24 PM [facility] STAFF PHYSICIAN NOTE OF PERSONAL INVOLVEMENT IN CARE I have reviewed the history and physical examination obtained and documented by the physician ob gyn physician assistant and discussed the case on as needed basis Principal Problem: Altered mental status, unspecified (POA: Yes) Active Problems: Sleep apnea (POA: Yes) Mixed hyperlipidemia (POA: Yes) Hypertension (POA: Yes) ASHD (arteriosclerotic heart disease) (POA: Yes) History of acute anterior wall TN (POA: Yes) BPH (benign prostatic hyperplasia) (POA: Yes) Controlled type 2 diabetes mellitus without complication, without long-term current use of insulin (HCC) (POA: Yes) Prostate cancer (HCC) (POA: Yes) Sick sinus syndrome (HCC) (POA: Yes) Closed fracture of proximal end of right humerus (POA: Yes) Resolved Problems: * No resolved hospital problems. * Grabiel Leigh MD, [facility] Staff,Dept of Hospital Medicine May 22, 2025 4:24 PM Pager:Click here to page DEPARTMENT OF [facility] MEDICINE HISTORY AND PHYSICAL EXAM SERVICE DATE: 05/22/2025 SERVICE TIME: 6:15 AM Primary Care Physician: Marisol Ribeiro MD NIGHT AND WEEKEND COVERAGE: [facility] Medicine Coverage [id number] Subjective CHIEF COMPLAINT: Weakness, AMS HPI: This is a 84-year-old male with a past medical history notable for DM2, hypertension, history of anterior wall TN, ASHD, sick sinus syndrome s/p pacemaker, prostate cancer, BPH, and recent right proximal humerus fracture who presents with altered mental status. The patient presented to [facility] evening 05/21/2025 by EMS who were called by the patient's son due to concerns for generalized weakness and mental status changes. The patient was recently seen at [facility] ED on 05/19/2205 after sustaining an injury [...] birthday and that he is currently at [facility] but unable to tell me the current year or President. He is agreeable to be seen by therapy and would be also be agreeable to continued therapy if needed. He really thinks that getting his right arm/shoulder pain under control will help him. He was discharged from the ED earlier in the week with a prescription for Andreas but hasn't been taking it. No fever, chills, GRAY, visual changes, URI symptoms, chest pain, palpitations, Shortness of Breath, cough, abdominal pain, N/V/D, urinary symptoms, skin changes, peripheral edema, paresthesia or focal weaknesses. [facility] Course: HDS, afebrile. COVID/FLU/RSV negative. Labs notable for Hgb 11.4, Hct 33.6, AG 20, BNP 1257, HS Troponins 43, 44, and 45. UA negative for infection. Urine Tox negative. ABG unremarkable. CXR negative. CT Brain and C-Spine negative for acute intracranial process or cervical spine injury. Received NS infusion in the ED. The patient was admitted to [facility] for further evaluation and management of weakness [...] anterior wa (more content not included)... Normal [facility] THERAPY NTon 05-22-2025 THERAPY NT HNO ID: [id number] Author: ABBY MOTLEY OTR/L Service: Occupational Therapy Author Type: Occupational Therapist Type: Therapy (PT/OT/Speech/Resp) Filed: 05/22/2025 14:47 Note Text: Occupational Therapy Evaluation Summary SERVICE DATE: 05/22/2025 SERVICE TIME: 1342 to 1415 ROOM: [place] [address] OT 6 Clicks Score: 15 DISCHARGE RECOMMENDATIONS [...] at all times due to humerus fracture, ATMAUTLUAK, DMII, IV L FA Right Upper Extremity Weight Bearing Status: NWB CURRENT HOSPITAL COURSE Patient is an 84 year old male presenting from home to [facility] ED/ OBS for weakness, mechanical fall 2 [...] for further workup. Relevant Past Medical History: TN, bradycardia, CAD, DDD, diverticulosis of colon, inguinal [...] not wear dentures- dental soft diet. 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 Visits his brother at a skilled nursing in [facility] at times. Poor historian Baseline Cognition: [...] and signs-other TREATMENT INTERVENTIONS Evaluation, Therapeutic Activity (42378) Timed Code Treatment (minutes): 18 Skilled Treatment [...] Assist Level (more content not included)... Normal [facility] THERAPY NT HNO ID: [id number] Author: YUMIKO SALGADO PT Service: Physical Therapy Author Type: Physical Therapist Type: Therapy (PT/OT/Speech/Resp) Filed: 05/22/2025 12:44 Note Text: Summary: PT OBS evaluation Physical Therapy Evaluation Summary SERVICE DATE: 05/22/2025 SERVICE TIME: 1051 to 1121 ROOM: [place] [address] PT 6 Clicks Score: 17 DISCHARGE RECOMMENDATIONS [...] year old male presenting from home to [facility]/ OBS for weakness, inability to care [...] at all times due to humerus fracture, ATMAUTLUAK, DMII, IV L FA Right Upper Extremity Weight Bearing Status: NWB CURRENT HOSPITAL COURSE Patient is an 84 year old male presenting from home to [facility]/ OBS for weakness, mechanical fall 2 [...] for further workup. Relevant Past Medical History: TN, bradycardia, CAD, DDD, diverticulosis of colon, inguinal [...] not wear dentures- dental soft diet. 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 SUBJECTIVE My arm is really sore. Agreeable to PT evaluation. THERAPY DIAGNOSIS Reduced mobility-other, Muscle Weakness (generalized), Difficulty walking-musculoskeletal TREATMENT INTERVENTIONS Evaluation, Gait Training (87897) Timed Code Treatment (minutes): 10 Skilled Treatment [...] Facilitation, Physi (more content not included)... Normal [facility] TOXICOLOGY SCREEN, ROUTINE U RINEon 05-22-2025 Amphetamines Confirm (U) [Mass/Vol] Negative Normal Negative [facility] Comment on above: Order Comment: Speci men Type: URINE SPECIMENOrdering Facility: [facility] Address: [address] [place] [address] Result Comment: Cuto ff threshold at 1000 ng/mL. Performed By: #### U TOX2 ####[facility] [place] LABCLIA [id number] [place] [id number] [place] BARBITURATES, URINE Negative Normal Negative [facility] Comment on above: Order Comment: Speci men Type: URINE SPECIMENOrdering Facility: [facility] Address: [address] [place] [address] Result Comment: Cuto ff threshold at 200 ng/mL. Performed By: #### U TOX2 ####[facility] [place] LABCLIA [id number] [place] [id number] [place] BENZODIAZEPINES, URINE Negative Normal Negative [facility] Comment on above: Order Comment: Speci men Type: URINE SPECIMENOrdering Facility: [facility] Address: [address] [place] [address] Result Comment: Cuto ff threshold at 200 ng/mL. Performed By: #### U TOX2 ####[facility] [place] LABCLIA [id number] [place] [address] [place] Cannabinoids Screen Ql (U) Negative Normal Negative [facility] Comment on above: Order Comment: Speci men Type: URINE SPECIMENOrdering Facility: [facility] Address: [address] [place] [address] Result Comment: Cuto ff threshold at 50 ng/mL. Performed By: #### U TOX2 ####[facility] [place] LABCLIA [id number] [place] [address] [facility] Cocaine Ql (U) Negative Normal Negative [facility] Comment on above: Order Comment: Speci men Type: URINE SPECIMENOrdering Facility: [facility] Address: [address] [place] [address] Result Comment: Cuto ff threshold at 300 ng/mL. Performed By: #### U TOX2 ####[facility] [place] LABCLIA [id number] [place] [address] [facility] [place] Ethanol (U) [Mass/Vol] <11 Normal <11 [facility] Comment on above: Order Comment: Speci men Type: URINE SPECIMENOrdering Facility: [facility] Address: [address] [place] [address] Performed By: #### U TOX2 ####[facility] [place] LABCLIA [id number] [place] [address] [place] fentaNYL Screen Ql (U) Negative Normal Negative [facility] Comment on above: Order Comment: Speci men Type: URINE SPECIMENOrdering Facility: [facility] Address: [address] [place] [address] Result Comment: Cuto ff threshold at 5 ng/mL. Performed By: #### U TOX2 ####[facility] [place] LABCLIA [id number] [place] [address] [place] Opiates Screen Ql (U) Negative Normal Negative [facility] Comment on above: Order Comment: Speci men Type: URINE SPECIMENOrdering Facility: [facility] Address: [address] [place] [address] Result Comment: Cuto ff threshold at 300 ng/mL. Performed By: #### U TOX2 ####[facility] LABCLIA [id number] [place] [address] [facility] oxyCODONE cutoff Screen (U) [Mass/Vol] Negative Normal Negative [facility] Comment on above: Order Comment: Speci men Type: URINE SPECIMENOrdering Facility: [facility] Address: [address] [place] [address] Result Comment: Cuto ff threshold at 100 ng/mL. Performed By: #### U TOX2 ####[facility] LABIA [id number] [address] Phencyclidine Ql (U) Negative Normal Negative [facility] Comment on above: Order Comment: Speci men Type: URINE SPECIMENOrdering Facility: [facility] Address: [address] [place] [address] Result Comment: Cuto ff threshold at 25 ng/mL. Performed By: #### U TOX2 ####[facility] LABCLIA [id number] [place] [id number] [facility] ALLIED HEALTHon 05-21-2025 ALLIED HEALTH HNO ID: [id number] Author: LORIN GALICIA RT(R) Service: Radiology Author Type: Server Systems Administrator Type: Allied Health Filed: 05/21/2025 19:54 Note [...] PATIENT PRESENTS WITH AN IMPLANTABLE OR ATTACHED QUANTITATIVE ANALYST: No RADIOLOGY DEPARTMENT: CT; Exam(s) Completed: Brain and Spine . Anesthesia: No PERIPHERAL IV DATA: Not applicable SIGNED BY: Lorin Galicia RT(R) May 21, 2025 7:53 PM Normal [facility] ARTERIAL BLOOD GASESon 05-21 Base deficit (BldA) [Moles/Vol] -1 mmol/L Normal -2-0 [facility] Comment on above: Order Comment: Speci men Type: ARTERIAL BLOOD SPECIMENOrdering Facility: [facility] Address: [address] [place] [address] Performed By: #### A LLBG ####[facility] [place] LABCLIA [id number] [address] [place] Body temperature 98.78 [degF] Normal [facility] Comment on above: Order Comment: Speci men Type: ARTERIAL BLOOD SPECIMENOrdering Facility: [facility] Address: [address] [place] [address] Performed By: #### A LLBG ####[facility] LABCLIA [id number] [place] [address] [place] Calcium.ionized (Bld) [Mass/Vol] 1.19 mmol/L Normal 1.08-1.30 [facility] Comment on above: Order Comment: Speci men Type: ARTERIAL BLOOD SPECIMENOrdering Facility: [facility] Address: [address] [place] [address] Performed By: #### A LLBG ####[facility] [place] LABCLIA [id number] [place] [address] [place] Calcium.ionized adjusted to pH 7.4 (BldA) [Moles/Vol] 1.21 mmol/L Normal 1.08-1.30 [facility] Comment on above: Order Comment: Speci men Type: ARTERIAL BLOOD SPECIMENOrdering Facility: [facility] Address: [address] [place] [address] Performed By: #### A LLBG ####[facility] [place] LABCLIA [id number] [place] [address] [place] Carboxyhemoglobin (BldA) [Mass fraction] 1.7 % Normal 0.0-2.0 [facility] Comment on above: Order Comment: Speci men Type: ARTERIAL BLOOD SPECIMENOrdering Facility: [facility] Address: [address] [place] [address] Result Comment: Carb oxyhemoglobin Reference Range for Smokers: 2.0-8.0% Performed By: #### A LLBG ####[facility] [place] LABCLIA [id number] [place] [address] [place] Chloride [Moles/Vol] 106 mmol/L High 97-105 [facility] Comment on above: Order Comment: Speci men Type: ARTERIAL BLOOD SPECIMENOrdering Facility: [facility] Address: [address] [place] [address] Performed By: #### A LLBG ####[facility] LABCLIA [id number] [place] [address] [facility] [place] CO2 (Bld) [Partial pressure] 35 mm Hg Low 36-46 [facility] Comment on above: Order Comment: Speci men Type: ARTERIAL BLOOD SPECIMENOrdering Facility: [facility] Address: [address] [place] [address] Performed By: #### A LLBG ####[facility] [place] LABCLIA [id number] [place] [address] [facility] [place] CO2 adjusted to patient's actual temperature (Bld) [Partial pressure] 35 mmHg Low 36-46 [facility] Comment on above: Order Comment: Speci men Type: ARTERIAL BLOOD SPECIMENOrdering Facility: [facility] Address: [address] [place] [address] Performed By: #### A LLBG ####[facility] [place] LABCLIA [id number] [place] [address] [place] Glucose [Mass/Vol] 192 mg/dL High 60-105 [facility] Comment on above: Order Comment: Speci men Type: ARTERIAL BLOOD SPECIMENOrdering Facility: [facility] Address: [address] [place] [address] Performed By: #### A LLBG ####[facility] [place] LABCLIA [id number] [place] [address] [place] HCO3 (Bld) [Moles/Vol] 23 mmol/L Normal 22-26 [facility] Comment on above: Order Comment: Speci men Type: ARTERIAL BLOOD SPECIMENOrdering Facility: [facility] Address: [address] [place] [address] Performed By: #### A LLBG ####[facility] [place] LABCLIA [id number] [place] [address] [facility] Hematocrit (Bld) [Volume fraction] 33.9 % Low 39.0-51.0 [facility] Comment on above: Order Comment: Speci men Type: ARTERIAL BLOOD SPECIMENOrdering Facility: [facility] Address: [address] [place] [address] Performed By: #### A LLBG ####[facility] [place] LABCLIA [id number] [place] [address] [place] [facility] Hemoglobin (Bld) [Mass/Vol] 11.1 g/dL Low 13.0-17.0 [facility] Comment on above: Order Comment: Speci men Type: ARTERIAL BLOOD SPECIMENOrdering Facility: [facility] Address: [address] [place] [address] Performed By: #### A LLBG ####[facility] [place] LABCLIA [id number] [place] [address] [place] Lactate [Moles/Vol] 0.8 mmol/L Normal 0.5-2.2 [facility] Comment on above: Order Comment: Speci men Type: ARTERIAL BLOOD SPECIMENOrdering Facility: [facility] Address: [address] [place] [address] Performed By: #### A LLBG ####[facility] [place] LABCLIA [id number] [place] [address] [place] Methemoglobin (Bld) [Mass fraction] % Normal 0.0-1.5 [facility] Comment on above: Order Comment: Speci men Type: ARTERIAL BLOOD SPECIMENOrdering Facility: [facility] Address: [address] [place] [address] Performed By: #### A LLBG ####[facility] [place] LABCLIA [id number] [place] [address] [facility] O2 THERAPY RA=Room Air Normal [facility] Comment on above: Order Comment: Speci men Type: ARTERIAL BLOOD SPECIMENOrdering Facility: [facility] Address: [address] [place] [address] Performed By: #### A LLBG ####[facility] [place] LABCLIA [id number] [place] [address] [facility] [place] Oxygen (Bld) [Partial pressure] 61 mm Hg Low 85-95 [facility] Comment on above: Order Comment: Speci men Type: ARTERIAL BLOOD SPECIMENOrdering Facility: [facility] Address: [address] [place] [address] Performed By: #### A LLBG ####[facility] [place] LABCLIA [id number] [place] [address] [facility] Oxygen adjusted to patient's actual temperature (Bld) [Partial pressure] Normal [facility] Comment on above: Order Comment: Speci men Type: ARTERIAL BLOOD SPECIMENOrdering Facility: [facility] Address: [address] [place] [address] Performed By: #### A LLBG ####[facility] [place] LABCLIA [id number] [place] [address] [place] Oxyhemoglobin (BldA) [Mass fraction] 89 % Low 95-98 [facility] Comment on above: Order Comment: Speci men Type: ARTERIAL BLOOD SPECIMENOrdering Facility: [facility] Address: [address] [place] [address] Performed By: #### A LLBG ####[facility] [place] LABCLIA [id number] [place] [address] [place] pH (Bld) 7.42 [pH] Normal 7.35-7.45 [facility] Comment on above: Order Comment: Speci men Type: ARTERIAL BLOOD SPECIMENOrdering Facility: [facility] Address: [address] [place] [address] Performed By: #### A LLBG ####[facility] [place] LABCLIA [id number] [place] [address] [place] pH adjusted to patient's actual temperature (Bld) 7.42 Normal 7.35-7.45 [facility] Comment on above: Order Comment: Speci men Type: ARTERIAL BLOOD SPECIMENOrdering Facility: [facility] Address: [address] [place] [address] Performed By: #### A LLBG ####[facility] [place] LABCLIA [id number] [place], [place] [address] [place] [address] [place] PO2 / FIO2 RATIO 290 mmHg Low >300 [facility] Comment on above: Order Comment: Speci men Type: ARTERIAL BLOOD SPECIMENOrdering Facility: [facility] Address: [address] [place] [address] Performed By: #### A LLBG ####[facility] [place] LABCLIA [id number] [place] [address] [place] Potassium [Moles/Vol] 3.6 mmol/L Normal 3.5-5.0 [facility] Comment on above: Order Comment: Speci men Type: ARTERIAL BLOOD SPECIMENOrdering Facility: [facility] Address: [address] [place] [address] Performed By: #### A LLBG ####[facility] [place] LABCLIA [id number] [place] [address] [place] Sodium [Moles/Vol] 139 mmol/L Normal 136-144 [facility] Comment on above: Order Comment: Speci men Type: ARTERIAL BLOOD SPECIMENOrdering Facility: [facility] Address: [address] [place] [address] Performed By: #### A LLBG ####[facility] [place] LABCLIA [id number] [place] [address] [place] CBC W Auto Differential pane l (Bld)on 05-21-2025 Basophils (Bld) [#/Vol] 10*3/uL Normal <0.11 [facility] Comment on above: Order Comment: Speci men Type: BLOOD SPECIMENOrdering Facility: [facility] Address: [address] [place] [address] Performed By: #### 5 7021-8 ####[facility] LABCLIA [id number] [address]#### [address]-5 ####[facility] LABCLIA [id number] [address] [place] [facility] Basophils/100 WBC (Bld) 0.2 % Normal [facility] Comment on above: Order Comment: Speci men Type: BLOOD SPECIMENOrdering Facility: [facility] Address: [address] [place] [address] Performed By: #### 5 7021-8 ####[facility] [place] LABCLIA [id number] [address]#### [address]9567-3 ####[facility] LABCLIA [id number] [address] [place] [facility] Differential cell count method Nom (Bld) Auto Normal [facility] Comment on above: Order Comment: Speci men Type: BLOOD SPECIMENOrdering Facility: [facility] Address: [address] [place] [address] Performed By: #### 5 7021-8 ####[facility] [place] LABCLIA [id number] [address]#### 12118-9 ####[facility] LABCLIA [id number] [address] [place] Eosinophils (Bld) [#/Vol] 10*3/uL Normal <0.46 [facility] Comment on above: Order Comment: Speci men Type: BLOOD SPECIMENOrdering Facility: [facility] Address: [address] [place] [address] Performed By: #### 5 7021-8 ####[facility] [place] LABCLIA [id number] [place], [place] [address] [place] [address] [place]#### 25596-7 ####[facility] LABCLIA [id number] [address] [place] Eosinophils/100 WBC (Bld) 0.0 % Normal [facility] Comment on above: Order Comment: Speci men Type: BLOOD SPECIMENOrdering Facility: [facility] Address: [address] [place] [address] Performed By: #### 5 7021-8 ####[facility] LABCLIA [id number] [address]#### 04079-1 ####[facility] LABCLIA [id number] [address] [place] Erythrocyte distribution width (RBC) [Ratio] 12.1 % Normal 11.5-15.0 [facility] Comment on above: Order Comment: Speci men Type: BLOOD SPECIMENOrdering Facility: [facility] Address: [address] [place] [address] Performed By: #### 5 7021-8 ####[facility] [place] LABCLIA [id number] [address] [place]#### 15341-3 ####[facility] LABCLIA [id number] [address] [place] Hematocrit (Bld) [Volume fraction] 33.6 % Low 39.0-51.0 [facility] Comment on above: Order Comment: Speci men Type: BLOOD SPECIMENOrdering Facility: [facility] Address: [address] [place] [address] Performed By: #### 5 7021-8 ####[facility] [place] LABCLIA [id number] [place], [place] [address] [place] [address]#### 90616-6 ####[facility] LABCLIA [id number] [address] [place] Hemoglobin (Bld) [Mass/Vol] 11.4 g/dL Low 13.0-17.0 [facility] Comment on above: Order Comment: Speci men Type: BLOOD SPECIMENOrdering Facility: [facility] Address: [address] [place] [address] Performed By: #### 5 7021-8 ####[facility] LABCLIA [id number] [address]#### 25925-5 ####[facility] LABCLIA [id number] [address] Immature granulocytes (Bld) [#/Vol] 0.03 10*3/uL Normal <0.10 [facility] Comment on above: Order Comment: Speci men Type: BLOOD SPECIMENOrdering Facility: [facility] Address: [address] [place] [address] Performed By: #### 5 7021-8 ####[facility] LABCLIA [id number] [address]#### 80870-9 ####[facility] LABCLIA [id number] [address] Immature granulocytes/100 WBC (Bld) 0.5 % Normal [facility] Comment on above: Order Comment: Speci men Type: BLOOD SPECIMENOrdering Facility: [facility] Address: [address] [place] [address] Performed By: #### 5 7021-8 ####[facility] [place] LABCLIA [id number] [address] [place]#### 30643-1 ####[facility] LABCLIA [id number] [place] [address] [place] Lymphocytes (Bld) [#/Vol] 0.62 10*3/uL Low 1.00-4.00 [facility] Comment on above: Order Comment: Speci men Type: BLOOD SPECIMENOrdering Facility: [facility] Address: [address] [place] [address] Performed By: #### 5 7021-8 ####[facility] [place] LABCLIA [id number] [address]#### 06414-0 ####[facility] LABCLIA [id number] [address] [place] Lymphocytes/100 WBC (Bld) 9.7 % Normal [facility] Comment on above: Order Comment: Speci men Type: BLOOD SPECIMENOrdering Facility: [facility] Address: [address] [place] [address] Performed By: #### 5 7021-8 ####[facility] LABCLIA [id number] [address] [place]#### [id number] ####[facility] LABCLIA [id number] [place] [address] [place] MCH (RBC) [Entitic mass] 35.5 pg High 26.0-34.0 [facility] Comment on above: Order Comment: Speci men Type: BLOOD SPECIMENOrdering Facility: [facility] Address: [address] [place] [address] Performed By: #### 5 7021-8 ####[facility] [place] LABCLIA [id number] [address]#### 69632-3 ####[facility] LABCLIA [id number] [address] [place] MCHC (RBC) [Mass/Vol] 33.9 g/dL Normal 30.5-36.0 [facility] Comment on above: Order Comment: Speci men Type: BLOOD SPECIMENOrdering Facility: [facility] Address: [address] [place] [address] Performed By: #### 5 7021-8 ####[facility] LABCLIA [id number] [address]#### 55666-8 ####[facility] LABCLIA [id number] [address] [place] MCV (RBC) [Entitic vol] 104.7 fL High 80.0-100.0 [facility] Comment on above: Order Comment: Speci men Type: BLOOD SPECIMENOrdering Facility: [facility] Address: [address] [place] [address] Performed By: #### 5 7021-8 ####[facility] LABCLIA [id number] [address]#### 34366-3 ####[facility] LABCLIA [id number] [address] [place] Monocytes (Bld) [#/Vol] 0.54 10*3/uL Normal <0.87 [facility] Comment on above: Order Comment: Speci men Type: BLOOD SPECIMENOrdering Facility: [facility] Address: [address] [place] [address] Performed By: #### 5 7021-8 ####[facility] LABCLIA [id number] [address]#### 24849-5 ####[facility] LABCLIA [id number] [address] [place] Monocytes/100 WBC (Bld) 8.4 % Normal [facility] Comment on above: Order Comment: Speci men Type: BLOOD SPECIMENOrdering Facility: [facility] Address: [address] [place] [address] Performed By: #### 5 7021-8 ####[facility] LABCLIA [id number] [place] [address] [place]#### 82314-6 ####[facility] LABCLIA [id number] [place] [address] [place] Neutrophils (Bld) [#/Vol] 5.22 10*3/uL Normal 1.45-7.50 [facility] Comment on above: Order Comment: Speci men Type: BLOOD SPECIMENOrdering Facility: [facility] Address: [address] [place] [address] Performed By: #### 5 7021-8 ####[facility] LABCLIA [id number] [place] [address] [place]#### 68334-9 ####[facility] LABCLIA [id number] [place] [id number] [place] Neutrophils/100 WBC (Bld) 81.2 % Normal [facility] Comment on above: Order Comment: Speci men Type: BLOOD SPECIMENOrdering Facility: [facility] Address: [address] [place] [address] Performed By: #### 5 7021-8 ####[facility] LABCLIA [id number] [place] [address] [place]#### 59200-0 ####[facility] LABCLIA [id number] [place] [address] [place] Nucleated RBC (Bld) [#/Vol] Normal [facility] Comment on above: Order Comment: Speci men Type: BLOOD SPECIMENOrdering Facility: [facility] Address: [address] [place] [address] Performed By: #### 5 7021-8 ####[facility] LABCLIA [id number] [place] [address] [place]#### 13196-4 ####[facility] LABCLIA [id number] [address] [place] Nucleated RBC/100 WBC (Bld) [Ratio] Normal [facility] Comment on above: Order Comment: Speci men Type: BLOOD SPECIMENOrdering Facility: [facility] Address: [address] [place] [address] Performed By: #### 5 7021-8 ####[facility] LABCLIA [id number] [address]#### 52141-4 ####[facility] LABCLIA [id number] [place] [address] [place] Platelet mean volume (Bld) [Entitic vol] 9.3 fL Normal 9.0-12.7 [facility] Comment on above: Order Comment: Speci men Type: BLOOD SPECIMENOrdering Facility: [facility] Address: [address] [place] [address] Performed By: #### 5 7021-8 ####[facility] LABCLIA [id number] [address] STATES [facility]#### 31555-6 ####[facility] LABCLIA [id number] [place] [address] [place] Platelets (Bld) [#/Vol] 211 10*3/uL Normal 150-400 [facility] Comment on above: Order Comment: Speci men Type: BLOOD SPECIMENOrdering Facility: [facility] Address: [address] [place] [address] Performed By: #### 5 7021-8 ####[facility] LABCLIA [id number] [place] [address] [place]#### 35155-0 ####[facility] LABCLIA [id number] [place] [address] [place] RBC (Bld) [#/Vol] 3.21 10*6/uL Low 4.20-6.00 [facility] Comment on above: Order Comment: Speci men Type: BLOOD SPECIMENOrdering Facility: [facility] Address: [address] [place] [address] Performed By: #### 5 7021-8 ####[facility] LABCLIA [id number] [address]#### 49133-0 ####[facility] LABCLIA [id number] [address] [place] WBC (Bld) [#/Vol] 6.42 10*3/uL Normal 3.70-11.00 [facility] Comment on above: Order Comment: Speci men Type: BLOOD SPECIMENOrdering Facility: [facility] Address: [address] [place] [address] Performed By: #### 5 7021-8 ####[facility] LABCLIA [id number] [address]#### 86370-2 ####[facility] LABCLIA [id number] [address] CBC panel Auto (Bld)on 05-21 Erythrocyte distribution width (RBC) [Ratio] 12.1 % Normal 11.5-15.0 [facility] Comment on above: Order Comment: Speci men Type: BLOOD SPECIMENOrdering Facility: [facility] Address: [address] [place] [address] Performed By: #### 5 8410-2 ####[facility] LABCLIA [id number] [address] Hematocrit (Bld) [Volume fraction] 33.0 % Low 39.0-51.0 [facility] Comment on above: Order Comment: Speci men Type: BLOOD SPECIMENOrdering Facility: [facility] Address: [address] [place] [address] Performed By: #### 5 8410-2 ####[facility] LABCLIA [id number] [place] [id number] [place] Hemoglobin (Bld) [Mass/Vol] 11.3 g/dL Low 13.0-17.0 [facility] Comment on above: Order Comment: Speci men Type: BLOOD SPECIMENOrdering Facility: [facility] Address: [address] [place] [address] Performed By: #### 5 8410-2 ####[facility] LABCLIA [id number] [place] [address] [place] MCH (RBC) [Entitic mass] 35.8 pg High 26.0-34.0 [facility] Comment on above: Order Comment: Speci men Type: BLOOD SPECIMENOrdering Facility: [facility] Address: [address] [place] [address] Performed By: #### 5 8410-2 ####[facility] LABCLIA [id number] [place] [address] [place] MCHC (RBC) [Mass/Vol] 34.2 g/dL Normal 30.5-36.0 [facility] Comment on above: Order Comment: Speci men Type: BLOOD SPECIMENOrdering Facility: [facility] Address: [address] [place] [address] Performed By: #### 5 8410-2 ####[facility] LABCLIA [id number] [place] [address] [place] MCV (RBC) [Entitic vol] 104.4 fL High 80.0-100.0 [facility] Comment on above: Order Comment: Speci men Type: BLOOD SPECIMENOrdering Facility: [facility] Address: [address] [place] [address] Performed By: #### 5 8410-2 ####[facility] LABCLIA [id number] [place] [address] [place] [facility] Platelet mean volume (Bld) [Entitic vol] 8.6 fL Low 9.0-12.7 [facility] Comment on above: Order Comment: Speci men Type: BLOOD SPECIMENOrdering Facility: [facility] Address: [address] [place] [address] Performed By: #### 5 8410-2 ####[facility] LABCLIA [id number] [place] [address] [facility] Platelets (Bld) [#/Vol] 182 10*3/uL Normal 150-400 [facility] Comment on above: Order Comment: Speci men Type: BLOOD SPECIMENOrdering Facility: [facility] Address: [facility] [place] [address] Performed By: #### 5 8410-2 ####[facility] LABCLIA [id number] [place] [address] [facility] [place] RBC (Bld) [#/Vol] 3.16 10*6/uL Low 4.20-6.00 [facility] Comment on above: Order Comment: Speci men Type: BLOOD SPECIMENOrdering Facility: [facility] Address: [facility] [place] [address] Performed By: #### 5 8410-2 ####[facility] LABCLIA [id number] [place] [address] [facility] [place] WBC (Bld) [#/Vol] 5.97 10*3/uL Normal 3.70-11.00 [facility] Comment on above: Order Comment: Speci men Type: BLOOD SPECIMENOrdering Facility: [facility] Address: [facility] [place] [address] Performed By: #### 5 8410-2 ####[facility] LABCLIA [id number] [place] [address] [facility] [place] 05-21-2025 CNPN Telephone (OTMB) KEITH KEVIN ([id number]) 1940 M Date Time Provider Department 05/21/25 RUTHY BOCANEGRA [facility] During your visit today, we recorded [...] Ruthy Hull would refer patient to a skilled nursing. Callback number: Bhupendra Kenney, Ruthy Min, BERTRAND.RIP SAWYER 05/22/2025 8:57 AM Signed Cora can you please call him and review that I Spoke to son at length during appt, discussed son needs to find and decide on a fpc facility then speak to that complaints coordinator to find out what is needed, also discussed calling pt's PCP, to perhaps address skilled need related to falls, imbalance, ie need for lower leg weakness, I can address his arm issues only.Ruthy Bocanegra, BERTRAND.RIP SAWYER Cora Mcconnell RN 05/22/2025 10:27 AM Signed [...] - Controlled E11.9 Insulin: No 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 - Blood-Glucose Meter ([employer] GmbHUCH ULTRA2) monitoring kit 1 Each as needed. [...] annual wellness visit, subsequent [Z00*05/15/2012 04/10/2017 Acute TN anterior wall first episode care (HCC)*11/11/2012 05/21/2025 ASHD (arteriosclerotic heart disease) [I25.10] 12/03/2012 Seborrheic Keratoses [L82.1] 01/05/2013 Viral warts, unspecified [B07.9] 01/05/2013 Lipoma [D17.9] 01/05/2013 Other seborrheic dermatitis [L21.8] 01/05/2013 05/21/2025 Solar lentigo [L81.4] 01/05/2013 Actinic skin damage [L57.8] 01/05/2013 Melanocytic nevi of upper extremity or shoulder*01/05/2013 Xerosis cutis [L85.3] 01/05/2013 History of acute anterior wall TN [I25.2] 02/26/2013 Diabetes mellitus type 2, controlled, without c*05/12/2015 04/10/2017 BPH (benign prostatic hyperplasia) [N40.0] 04/01/2016 Controlled type 2 diabetes mellitus without com* Other and unspecified hyperlipidemia [E78.5] 04/10/2017 Tinnitus [H93.19] Right inguinal hernia [K40.90] 12/13/2016 Hyperlipidemia [E78.5] 04/10/2017 04/10/2017 Statin declined [Z53.20] 07/31/2019 05/21/2025 Prostate cancer (HCC) [C61] 10/18/2021 Sick sinus syndrome (HCC) [I49.5] (more content not included)... Normal [facility] CT BRAIN WO IVCONon 05-21-20 CT BRAIN WO IVCON * * *Final Report* * * DATE OF EXAM: May 21 2025 7:52PM [facility] 0504 - CT BRAIN WO IVCON [...] No evidence of acute intracranial process. Senior Mechanical Design Engineer: PSCB Transcribe Date/Time: May 21 2025 8:53P Dictated by : DEDE PEACOCK MD This examination was interpreted and the report reviewed and electronically signed by: DEDE PEACOCK MD on May 21 2025 8:54PM EST [id number] Normal [facility] CT CERVICAL SPINE WO IVCONon 05-21-2025 CT CERVICAL SPINE WO IVCON * * *Final Report* * * DATE OF EXAM: May 21 2025 7:52PM [facility] 0505 - CT CERVICAL SPINE WO [...] Counting reference: Craniocervical junction. Anatomic Variants: None. Laundry Helper (topogram) images: Left chest pacemaker. Alignment: Alignment [...] with counting from the craniocervical junction. Senior Mechanical Design Engineer: PSCB Transcribe Date/Time: May 21 2025 8:48P Dictated by : DEDE PEACOCK MD This examination was interpreted and the report reviewed and electronically signed by: DEDE PEACOCK MD on May 21 2025 8:52PM EST [id number] Normal [facility] Comprehensive metabolic 2000 panelon 05-21-2025 Albumin [Mass/Vol] 4.3 g/dL Normal 3.9-4.9 [facility] Comment on above: Order Comment: Speci men Type: BLOOD SPECIMENOrdering Facility: [facility] Address: [address] [place] [address] Performed By: #### 3 3762-6, 06993-5, ####[facility] LABCLIA [id number] [place] [address] [place] ALP [Catalytic activity/Vol] 59 U/L Normal 38-113 [facility] Comment on above: Order Comment: Speci men Type: BLOOD SPECIMENOrdering Facility: [facility] Address: [address] [place] [address] Performed By: #### 3 3762-6, 26133-5, ####[facility] LABCLIA [id number] [place] [address] [place] ALT With P-5'-P [Catalytic activity/Vol] 14 U/L Normal 10-54 [facility] Comment on above: Order Comment: Speci men Type: BLOOD SPECIMENOrdering Facility: [facility] Address: [address] [place] [address] Performed By: #### 3 3762-6, 28774-9, ####[facility] [place] LABCLIA [id number] [place] [address] [place] Anion gap [Moles/Vol] 20 mmol/L High 8-15 [facility] Comment on above: Order Comment: Speci men Type: BLOOD SPECIMENOrdering Facility: [facility] Address: [address] [place] [address] Performed By: #### 3 3762-6, 63981-4, ####[facility] [place] LABCLIA [id number] [place] [address] [place] AST With P-5'-P [Catalytic activity/Vol] 34 U/L Normal 14-40 [facility] Comment on above: Order Comment: Speci men Type: BLOOD SPECIMENOrdering Facility: [facility] Address: [address] [place] [address] Performed By: #### 3 3762-6, 80787-0, ####[facility] LABCLIA [id number] [facility] [address] [place] Bilirubin [Mass/Vol] 0.8 mg/dL Normal 0.2-1.3 [facility] Comment on above: Order Comment: Speci men Type: BLOOD SPECIMENOrdering Facility: [facility] Address: [address] [place], [place] [address] Performed By: #### 3 3762-6, 91579-9, ####[facility] [place] LABCLIA [id number] [facility] [address] [place] Calcium [Mass/Vol] 9.2 mg/dL Normal 8.5-10.2 [facility] Comment on above: Order Comment: Speci men Type: BLOOD SPECIMENOrdering Facility: [facility] Address: [address] [place] [address] Performed By: #### 3 3762-6, 18452-7, ####[facility] [place] LABCLIA [id number] [facility] [place] [address] [place] Chloride [Moles/Vol] 98 mmol/L Normal 98-107 [facility] Comment on above: Order Comment: Speci men Type: BLOOD SPECIMENOrdering Facility: [facility] Address: [address] [place] [address] Performed By: #### 3 3762-6, 79556-0, ####[facility] [place] LABCLIA [id number] [place] [address] [place] CO2 [Moles/Vol] 19 mmol/L Low 22-30 [facility] Comment on above: Order Comment: Speci men Type: BLOOD SPECIMENOrdering Facility: [facility] Address: [address] [place] [address] Performed By: #### 3 3762-6, 11902-4, ####[facility] LABCLIA [id number] [place] [address] [place] Creatinine [Mass/Vol] 0.76 mg/dL Normal 0.73-1.22 [facility] Comment on above: Order Comment: Speci men Type: BLOOD SPECIMENOrdering Facility: [facility] Address: [address] [place] [address] Performed By: #### 3 3762-6, 35593-4, ####[facility] LABCLIA [id number] [place] [address] [place] eGFRcr SerPlBld CKD-EPI 2020 88 mL/min/1.73m??? Normal >=60 [facility] Comment on above: Order Comment: Speci men Type: BLOOD SPECIMENOrdering Facility: [facility] Address: [address] [place] [address] Result Comment: Cristy mated Glomerular Filtration Rate [...] actual GFR. Performed By: #### 3 3762-6, 92223-9, ####[facility] LABCLIA [id number] [place] [address] [place] Glucose [Mass/Vol] 222 mg/dL High 74-99 [facility] Comment on above: Order Comment: Jonathani loc Type: BLOOD SPECIMENOrdering Facility: [facility] Address: [address] [place] [address] Result Comment: The [place] Diabetes [employer] (ADA) provides guidance for cutoff [...] Standards of Medical Care in Diabetes 2016, [place] [employer]. Diabetes Care. 2016.39(Suppl 1). Performed By: #### 3 3762-6, 97399-8, ####[facility] LABCLIA [id number] [place] [address] [place] Potassium [Moles/Vol] 3.7 mmol/L Normal 3.7-5.1 [facility] Comment on above: Order Comment: Jonathani men Type: BLOOD SPECIMENOrdering Facility: [facility] Address: [address] [place] [address] Performed By: #### 3 3762-6, 86606-4, ####[facility] LABIA [id number] [place] [address] [place] Protein [Mass/Vol] 7.3 g/dL Normal 6.3-8.0 [facility] Comment on above: Order Comment: Speci men Type: BLOOD SPECIMENOrdering Facility: [facility] Address: [address] [place] [address] Performed By: #### 3 3762-6, 17633-7, 61556-4 ####[facility] [place] LABCLIA [id number] [place] [address] [place] [facility] Sodium [Moles/Vol] 137 mmol/L Normal 136-144 [facility] Comment on above: Order Comment: Speci men Type: BLOOD SPECIMENOrdering Facility: [facility] Address: [address] [place] [address] Performed By: #### 3 3762-6, 30589-4, ####[facility] [place] LABCLIA [id number] [place] [address] [facility] Urea nitrogen [Mass/Vol] 13 mg/dL Normal 9-24 [facility] Comment on above: Order Comment: Speci men Type: BLOOD SPECIMENOrdering Facility: [facility] Address: [address] [place] [address] Performed By: #### 3 3762-6, 69597-7, 83490-6 ####[facility] [place] LABCLIA [id number] [place] [address] [place] [id number] 05-21-2025 ECG01 Ventricular Rate : 7 5 BPM Atrial Rate : 75 BPM P-R Interval : 210 ms QRS Duration : 122 ms Q-T Interval : 420 ms QTC Calculation(Bazett) : 469 ms Calculated P Luning : 40 degrees Calculated R Luning : -16 degrees Calculated T Luning : 1 degrees SINUS RHYTHM WITH 1ST DEGREE A-V BLOCK RIGHT BUNDLE BRANCH BLOCK INFERIOR INFARCT , AGE UNDETERMINED ABNORMAL ECG NO PREVIOUS ECGS AVAILABLE No STEMI Confirmed by BABITA CALLAHAN MD ([id number]) on 05/21/2025 7:21:01 PM NAME : KEITH KEVIN PID : [id number] : 1940 Gender : Male Race : ORD : Procedure Date : May 21 2025 18:50:52 Edit Date : May 21 2025 19:21:04 Diagnosis: SINUS RHYTHM WITH 1ST DEGREE A-V BLOCK RIGHT BUNDLE BRANCH BLOCK INFERIOR INFARCT , AGE UNDETERMINED ABNORMAL ECG NO PREVIOUS ECGS AVAILABLE No STEMI Confirmed by BABITA CALLAHAN MD ([id number]) on 05/21/2025 7:21:01 PM Test Reason : Location : 150 : [place] Overread By : BABITA CALLAHAN MD Edited By : BABITA CALLAHAN MD Referred By : , Acquired by : MARIELA PAN [facility] ED NOTEon 05-21-2025 ED NOTE HNO ID: [id number] Author: CARO BURGESS RN Service: Emergency Medicine Author Type: Registered Nurse Type: ED Notes Filed: 05/21/2025 21:48 Note Text: Hospitalist on phone with ED physician at this time. [facility] ED NOTE HNO ID: [id number] Author: CARO BURGESS RN Service: Emergency Medicine Author Type: Registered Nurse Type: ED Notes Filed: 05/21/2025 21:37 Note Text: 2nd page to hospitalist sent at this time. [facility] ED NOTE HNO ID: [id number] Author: CARO BURGESS RN Service: Emergency Medicine Author Type: Registered Nurse Type: ED Notes Filed: 05/21/2025 21:15 Note Text: Hospitalist paged at this time. [facility] ED NOTE HNO ID: [id number] Author: ?, ?, ? Service: Emergency Medicine Author Type: ? Type: ED Notes Filed: 05/21/2025 19:54 Note Text: Patient report received from ESAU Ibrahim. Now assuming pt care at this time. [facility] ED NOTE HNO ID: [id number] Author: CARO BURGESS RN Service: Emergency Medicine Author Type: Registered Nurse Type: ED Notes Filed: 05/21/2025 19:45 Note Text: Change of shift report received from Alexandria Moore RN. I assumed patient care at this time. [facility] ED NOTE HNO ID: [id number] Author: ALEXANDRIA KAMINSKI RN Service: ? Author [...] was 2022 and unsure of birthday. Normal [facility] ED NOTE HNO ID: [id number] Author: AUGUSTINE DRAKE RN Service: Emergency Medicine Author Type: Registered Nurse Type: ED Notes Filed: 05/21/2025 18:51 Note Text: Patient brought in by [facility] who were called by the [...] VS as charted. Son to bedside. On financial director. Call light in reach. Normal [facility] ED PROV NOTEon 05-21-2025 ED PROV NOTE HNO ID: [id number] Author: BABITA CALLAHAN MD Service: Emergency Medicine [...] CORONARY ENDARTERCOMY OPEN ANY METHOD 09/2012 Angioplasty, [place] EGD 06/1999 EGD TRANSORAL BIOPSY SINGLE/MULTIPLE 05/28/2013 HERNIA REPAIR HX 1994 x6 LEFT HEART CATH,PERCUTANEOUS 09/2012 Cardiac cath, L heart, [place] RPR 1ST INGUN HRNA AGE 5 YRS/> [...] Extraocular Movements (more content not included)... Normal [facility] Folate SerPl-mCncon 05-21-20 25 Folate [Mass/Vol] ng/mL Normal >4.7 [facility] Comment on above: Order Comment: Speci men Type: BLOOD SPECIMENOrdering Facility: [facility] Address: [address] [place] [address] Result Comment: A re sult of > 20 ng/mL is not necessarily indicative of a pathologic or treatable condition: it reflects a limitation of the test methodology. Assay reference range: 4.8 to 24.2 ng/mL. Suitable for detection of folate deficiency. Reference: Folate III (Folate III) [package insert V 1.0 [place]ian]. [facility], [place], [place]: May 2015. Performed By: #### 2 132-9, 2284-8 ####[facility] LABORATORYCLIA [id number] [place] [address] [facility] HIGH SENSITIVITY TROPONIN T (INITIAL)on 05-21-2025 Troponin T.cardiac High sensitivity method [Mass/Vol] 43 ng/L High <12 [facility] Comment on above: Order Comment: Speci men Type: BLOOD SPECIMENOrdering Facility: [facility] Address: [address] [place] [address] Performed By: #### L [id number] ####[facility] LABCLIA [id number] [place] [address] [facility] HIGH SENSITIVITY TROPONIN T (SECOND)on 05-21-2025 Troponin T.cardiac High sensitivity method [Mass/Vol] 45 ng/L High <12 [facility] Comment on above: Order Comment: Speci men Type: BLOOD SPECIMENOrdering Facility: [facility] Address: [address] [place] [address] Performed By: #### L [id number] ####[facility] LABCLIA [id number] [place] [address] [facility] HIGH SENSITIVITY TROPONIN T (THIRD) 3 HRS AFTER INITIALon 05-21-2025 Troponin T.cardiac High sensitivity method [Mass/Vol] 49 ng/L High <12 [facility] Comment on above: Order Comment: Speci men Type: BLOOD SPECIMENOrdering Facility: [facility] Address: [address] [place] [address] Performed By: #### L [id number] ####[facility] LABCLIA [id number] [place] [address] [facility] HISTORY PHYSICALon HISTORY PHYSICAL HNO ID: [id number] Author: WALTER DAVISON APRN.CNP Service: Hospital Medicine Author Type: Nurse Practitioner Type: H&P Filed: 05/21/2025 22:17 Note Text: DEPARTMENT OF HOSPITAL MEDICINE PROGRESS NOTE SERVICE DATE: 05/21/2025 SERVICE TIME: 10:03 PM Hospital Medicine/Primary Attending: Grabiel Leigh MD Subjective BRIEF HPI: Mr. Keith Kevin is an 84-year-old male with a past medical history notable for DM2, hypertension, history of anterior wall TN, ASHD, sick sinus syndrome s/p pacemaker, prostate [...] for DM2, hypertension, history of anterior wall TN, ASHD, sick sinus syndrome s/p pacemaker, prostate [...] but cannot discount other etiologies -Hold home Andreas for now and instead prescribe analgesics as below - Check other metabolic processes/labs--> unable to obtain ammonia at [facility] but low suspicion of hepatic encephalopathy -Neurochecks entered overnight -Conside (more content not included)... Normal [facility] HbA1c (Bld)on 05-21-2025 Average glucose Estimated from glycated hemoglobin (Bld) [Mass/Vol] 134 mg/dL Normal [facility] Comment on above: Order Comment: Speci men Type: BLOOD SPECIMENOrdering Facility: [facility] Address: [address] [place] [address] Result Comment: eAG: (Estimated average glucose) is a calculated value from HgbA1c and is financial services representative of the average blood glucose level in the last 2-3 month period. Performed By: #### 5 7021-8 ####[facility] LABCLIA [id number] [place] [address] [place]#### 08373-4 ####[facility] LABCLIA [id number] [place] [address] [place] HbA1c (Bld) [Mass fraction] 6.3 % High 4.3-5.6 [facility] Comment on above: Order Comment: Speci men Type: BLOOD SPECIMENOrdering Facility: [facility] Address: [address] [place] [address] Result Comment: Amer ican Diabetes Association guidelines indicate that patients with HgbA1c in the range 5.7-6.4% are at increased risk for development of diabetes, and intervention by lifestyle modification may be beneficial. HgbA1c greater or equal to 6.5% is considered diagnostic of diabetes. Performed By: #### 5 7021-8 ####[facility] LABCLIA [id number] [address] STATES [facility]#### 46259-4 ####[facility] LABCLIA [id number] [address] [place] Magnesium SerPl-ncon 05-21 Magnesium [Mass/Vol] 2.1 mg/dL Normal 1.7-2.3 [facility] Comment on above: Order Comment: Speci men Type: BLOOD SPECIMENOrdering Facility: [facility] Address: [address] [place] [address] Performed By: #### 1 9123-9 ####[facility] LABCLIA [id number] [address] [place] Magnesium [Mass/Vol] 2.0 mg/dL Normal 1.7-2.3 [facility] Comment on above: Order Comment: Speci men Type: BLOOD SPECIMENOrdering Facility: [facility] Address: [address] [place] [address] Performed By: #### 3 3762-6, 23583-8, ####[facility] LABCLIA [id number] [place] [address] [facility] NT-proBNP SerPl-mCncon 05-21 Natriuretic peptide.B prohormone N-Terminal [Mass/Vol] 1257 pg/mL High <450 [facility] Comment on above: Order Comment: Speci men Type: BLOOD SPECIMENOrdering Facility: [facility] Address: [address] [place] [address] Performed By: #### 3 3762-6, 03057-5, ####[facility] LABCLIA [id number] [place] [address] [facility] SEPSIS LACTATEon 05-21-2025 Lactate [Moles/Vol] 1.8 mmol/L Normal <=2.0 [facility] Comment on above: Order Comment: Speci men Type: BLOOD SPECIMENOrdering Facility: [facility] Address: [address] [place] [address] Performed By: #### S LACT ####[facility] LABCLIA [id number] [place] [address] [facility] Urinalysis complete panel (U )on 05-21-2025 Bacteria LM.HPF (Urine sed) [#/Area] Few Abnormal None Seen [facility] Comment on above: Order Comment: Speci men Type: URINE SPECIMENOrdering Facility: [facility] Address: [address] [place] [address] Performed By: #### 2 4356-8 ####[facility] LABCLIA [id number] [place] [address] [facility] Bilirubin Ql (U) 1+ Abnormal Negative [facility] Comment on above: Order Comment: Speci men Type: URINE SPECIMENOrdering Facility: [facility] Address: [address] [id number] Result Comment: Sugg est correlation with clinical findings and serum bilirubin if clinically indicated. Performed By: #### 2 4356-8 ####[facility] LABCLIA [id number] [place] [address] [facility] Clarity (Unsp spec) Clear Normal Clear [facility] Comment on above: Order Comment: Speci men Type: URINE SPECIMENOrdering Facility: [facility] Address: [address] [place] [address] Performed By: #### 2 4356-8 ####[facility] LABCLIA [id number] [place] [address] [facility] Color (U) Yellow Normal Yellow [facility] Comment on above: Order Comment: Speci men Type: URINE SPECIMENOrdering Facility: [facility] Address: [address] [place] [address] Performed By: #### 2 4356-8 ####[facility] LABCLIA [id number] [facility] [place] [address] [facility] Glucose Test strip (U) [Mass/Vol] Trace Abnormal Negative [facility] Comment on above: Order Comment: Speci men Type: URINE SPECIMENOrdering Facility: [facility] Address: [address] [place] [address] Performed By: #### 2 4356-8 ####[facility] LABCLIA [id number] [facility] [place] [address] [place] Hemoglobin Ql (U) Trace Abnormal Negative [facility] Comment on above: Order Comment: Speci men Type: URINE SPECIMENOrdering Facility: [facility] Address: [address] [place] [address] Performed By: #### 2 4356-8 ####[facility] LABCLIA [id number] [place] [address] [facility] Ketones Ql (U) 4+ Abnormal Negative [facility] Comment on above: Order Comment: Speci men Type: URINE SPECIMENOrdering Facility: [facility] Address: [address] [place] [address] Performed By: #### 2 4356-8 ####[facility] LABCLIA [id number] [place] [address] [facility] Leukocyte esterase Test strip Ql (U) Negative Normal Negative [facility] Comment on above: Order Comment: Speci men Type: URINE SPECIMENOrdering Facility: [facility] Address: [address] [place] [address] Performed By: #### 2 4356-8 ####[facility] LABCLIA [id number] [place] [address] [place] [facility] Nitrite Ql (U) Negative Normal Negative [facility] Comment on above: Order Comment: Speci men Type: URINE SPECIMENOrdering Facility: [facility] Address: [address] [place] [address] Performed By: #### 2 4356-8 ####[facility] LABCLIA [id number] [place] [address] [place] pH (U) 6.0 [pH] Normal 5.0-8.0 [facility] Comment on above: Order Comment: Speci men Type: URINE SPECIMENOrdering Facility: [facility] Address: [address] [place] [address] Performed By: #### 2 4356-8 ####[facility] LABCLIA [id number] [place] [address] [facility] Protein (U) [Mass/Vol] 1+ Abnormal Negative [facility] Comment on above: Order Comment: Speci men Type: URINE SPECIMENOrdering Facility: [facility] Address: [address] [place] [address] Performed By: #### 2 4356-8 ####[facility] LABCLIA [id number] [place] [address] [facility] RBC LM.HPF (Urine sed) [#/Area] 0-3 /HPF Normal 0-3 /HPF [facility] Comment on above: Order Comment: Speci men Type: URINE SPECIMENOrdering Facility: [facility] Address: [address] [place] [address] Performed By: #### 2 4356-8 ####[facility] LABCLIA [id number] [place] [address] [facility] Specific gravity (U) [Rel density] 1.025 Normal 1.005-1.030 [facility] Comment on above: Order Comment: Speci men Type: URINE SPECIMENOrdering Facility: [facility] Address: [address] [place] [address] Performed By: #### 2 4356-8 ####[facility] LABCLIA [id number] [place] [id number] [facility] Urobilinogen Ql (U) 0.2 EU/dL Normal 0.2-1.0 EU/dL [facility] Comment on above: Order Comment: Speci men Type: URINE SPECIMENOrdering Facility: [facility] Address: [address] [place] [address] Performed By: #### 2 4356-8 ####[facility] LABIA [id number] [place] [id number] [place] WBC LM.HPF (Urine sed) [#/Area] 0-5 /HPF Normal 0-5 /HPF [facility] Comment on above: Order Comment: Speci men Type: URINE SPECIMENOrdering Facility: [facility] Address: [address] [place] [address] Performed By: #### 2 4356-8 ####[facility] LABCLIA [id number] [place] [address] [place] VITAMIN B1 (THIAMINE), WHOLE BLOODon 05-21-2025 Thiamine (Bld) [Moles/Vol] 142.8 nmol/L Normal 84.3-213.3 [facility] Comment on above: Order Comment: Speci men Type: BLOOD SPECIMENOrdering Facility: [facility] Address: [address] [place] [address] Result Comment: This assay measures the concentration of thiamine diphosphate (TDP), the primary active form of vitamin B1. Approximately 90 percent of vitamin B1 present in whole blood is TDP. Thiamine and thiamine monophosphate, which comprise the remaining 10 percent, are not measured. This test was developed, and its performance characteristics determined by the [facility] Department of Pathology and Laboratory Medicine. It has not been cleared or approved by the FDA. The [facility] Department of Pathology and Laboratory Medicine is regulated under CLIA as qualified to perform high-complexity testing. This test is used for clinical purposes. It should not be regarded as investigational or for research. Performed By: #### B 1WB ####[facility] LABCLIA [id number] [place] [address] [place] Vit B12 [facility] 025 Cobalamin (Vitamin B12) [Mass/Vol] 587 pg/mL Normal 232-1245 [facility] Comment on above: Order Comment: Speci men Type: BLOOD SPECIMENOrdering Facility: [facility] Address: [address] [place] [address] Performed By: #### 2 132-9, 2284-8 ####[facility]ORATORYCLIA [id number] [place] [address] [place] XR CHEST 1V [...] No evidence of acute intrathoracic process. Senior Mechanical Design Engineer: TAL Transcribe Date/Time: May 21 2025 8:43P Dictated by : DEDE PEACOCK MD This examination was interpreted and the report reviewed and electronically signed by: DEDE PEACOCK MD on May 21 2025 8:44PM EST [id number] Normal [facility] CNOVon 05-20-2025 CNOV Office Visit (OTMBHT ) KEITH KEVIN ([id number]) 1940 M Date Time Provider Department 05/20/25 1:40 PM RUTHY BOCANEGRA During your visit today, we recorded the following information about you: Ruthy Bocanegra APRN.RIP SAWYER 05/23/2025 11:00 AM Signed SHOULDER/ELBOW INITIAL CONSULT Recording using [employer] software for draft documentation of the visit was discussed with the patient/authorized financial services representative; all questions welcomed and answered. 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 Dai. S/p radiation and hormone deprivation Refusal of statin medication by patient Sick sinus syndrome ([facility]) ST elevation myocardial infarction (STEMI) of anterior wall ([facility]) 10/02/2012 PCI not amenable to [...] CORONARY ENDARTERCOMY OPEN ANY METHOD 09/2012 Angioplasty, [place] EGD 06/1999 EGD TRANSORAL BIOPSY SINGLE/MULTIPLE 05/28/2013 HERNIA REPAIR HX 1994 x6 LEFT HEART CATH,PERCUTANEOUS 09/2012 Cardiac cath, L heart, [place] RPR 1ST INGUN HRNA AGE 4 YRS/> [...] every 6 (more content not included)... Normal [facility] ALLIED HEALTHon 05-19-2025 ALLIED HEALTH HNO ID: [id number] Author: LOIS CLEVELAND RT(R) Service: ? Author [...] PATIENT PRESENTS WITH AN IMPLANTABLE OR ATTACHED QUANTITATIVE ANALYST: No RADIOLOGY DEPARTMENT: General X-ray: Exam(s) Completed: Upper Extremity X-Ray(s): Shoulder, AP / TRUE AP right and Humerus, right y-view shoulder PERIPHERAL IV DATA: Not applicable SIGNED BY: RT Bernardo(R) May 19, 2025 7:[address] [facility] ED NOTEon 05-19-2025 ED NOTE HNO ID: [id number] Author: ASHLEE FALK RN Service: Nursing Author [...] DATE: May 20, 2025 TIME: 6:[address] [facility] ED NOTE HNO ID: [id number] Author: VENKAT CRUZ RN Service: ? Author Type: Registered Nurse Type: ED Notes Filed: 05/19/2025 22:48 Note Text: D/c instructions reviewed with pt and pt's son who verbalized understanding. Pt's vss and left ED in wheelchair in stable condition with son. [facility] ED NOTE HNO ID: [id number] Author: VENKAT CRUZ RN Service: ? Author Type: Registered Nurse Type: ED Notes Filed: 05/19/2025 21:54 Note Text: Sling applied to pts R arm [facility] ED NOTE HNO ID: [id number] Author: VENKAT CRUZ RN Service: ? Author [...] ROM. AANDOx3. Vss. Will continue to monitor. [facility] XR HUMERUS 2V AP/LAT RTon XR [...] IMPRESSION: Impacted fracture proximal right humerus. Senior Mechanical Design Engineer: TAL Transcribe Date/Time: May 19 2025 8:07P Dictated by : KAT KING MD This examination was interpreted and the report reviewed and electronically signed by: KAT KING MD on May 19 2025 8:09PM EST [id number] [facility] XR SHLDR >/=3V AP/SASHA AP/OTH R [...] IMPRESSION: Impacted fracture proximal right humerus. Senior Mechanical Design Engineer: TAL Transcribe Date/Time: May 19 2025 8:07P Dictated by : KAT KING MD This examination was interpreted and the report reviewed and electronically signed by: KAT KING MD on May 19 2025 8:09PM EST [id number] Normal [facility] Cardiology Visit Reporton Cardiology Visit Report [facility] [address] [place], [place] [address] OFFICE VISIT Date of Service: 04/09/25 MR#: [id number] Acct: [id number] Name: KEITH KEVIN Rep #: [id number] : 1940 Provider: Dr. Alcon Grajeda MD Age/Sex: 84/M [place] [facility] [place]: Signed HPI HPI History of Present [...] syndrome. He states that he had an TN in 2015 when he was in [place], he states he underwent a balloon angioplasty. [...] Monitor Intake Visit Reasons: 1 Y [employer] President Required: No Is patient in pain?: No [...] Bilateral: C (more content not included)... Normal [facility] Pacemaker Checkon 02-24-2025 Pacemaker Check [facility] [address] [place] [address] Pacemaker Check Date of Service: 02/24/251734 MR#: [id number] Acct: [id number] Name: KEITH KEVIN Rep #: [id number] : 1940 From: Jamee Lamar Age/Sex: 84/M [place] [facility] Status: Signed Billing Codes PM Device Codes: 34417 PM Dev Prog Eval, Dual Assessment and Plan Assessment and Plan (1) NSVT (nonsustained ventricular tachycardia): Status: Acute Comment: Per device report 02/20/2024; (2) Sick sinus syndrome: Status: Acute (3) Cardiac pacemaker in situ: Status: Chronic Comment: PPM Ventricular lead - [employer]: Medtronic, Model # CapSureFix Novus MRI SureScan 5076-52 , Serial # [id number];PPM Atrial lead - [employer]: Medtronic, Model # CapSureFix Novus MRI SureScan 5076-45 , Serial # [id number]; PPM Generator - [employer]: Medtronic, Model # [place] XT DR MRI SureScan [id number] , Serial # [id number] 02/24/251735 Date Jameeabby Lamar Cosigner Signature: Date (if applicable) CC: Normal [facility] Bacteria Ur Culton Bacteria identified Cx Nom (U) CULTURE, URINE: No growth (<1,000 CFU/ml) Normal [facility] Comment on above: Performed By: #### 6 30-4 ####[facility] LABCLIA [id number] [place] [address] [place] CBC W Auto Differential pane l (Bld)on 02-14-2025 Basophils (Bld) [#/Vol] 0.03 10*3/uL Normal <0.11 [facility] Comment on above: Order Comment: Speci men Type: BLOOD SPECIMENOrdering Facility: [facility] Address: [address] [place] [address] Performed By: #### 5 7021-8 ####[facility] LABCLIA [id number] [place] [address] [place] Basophils/100 WBC (Bld) 0.7 % Normal [facility] Comment on above: Order Comment: Speci men Type: BLOOD SPECIMENOrdering Facility: [facility] Address: [address] [place] [address] Performed By: #### 5 7021-8 ####[facility] LABCLIA [id number] [address] [place] Differential cell count method Nom (Bld) Auto Normal [facility] Comment on above: Order Comment: Speci men Type: BLOOD SPECIMENOrdering Facility: [facility] Address: [address] [place] [address] Performed By: #### 5 7021-8 ####[facility] LABCLIA [id number] [place] [address] [place] Eosinophils (Bld) [#/Vol] 0.15 10*3/uL Normal <0.46 [facility] Comment on above: Order Comment: Speci men Type: BLOOD SPECIMENOrdering Facility: [facility] Address: [address] [place] [address] Performed By: #### 5 7021-8 ####[facility] LABCLIA [id number] [address], [place] [address] [place] Eosinophils/100 WBC (Bld) 3.7 % Normal [facility] Comment on above: Order Comment: Speci men Type: BLOOD SPECIMENOrdering Facility: [facility] Address: [address] [place] [address] Performed By: #### 5 7021-8 ####[facility] LABIA [id number] [address], [place] [address] [place] Erythrocyte distribution width (RBC) [Ratio] 11.9 % Normal 11.5-15.0 [facility] Comment on above: Order Comment: Speci men Type: BLOOD SPECIMENOrdering Facility: [facility] Address: [address] [place] [address] Performed By: #### 5 7021-8 ####[facility] LABIA [id number] [address], [place] [address] [place] Hematocrit (Bld) [Volume fraction] 38.1 % Low 39.0-51.0 [facility] Comment on above: Order Comment: Speci men Type: BLOOD SPECIMENOrdering Facility: [facility] Address: [address] [place] [address] Performed By: #### 5 7021-8 ####[facility] LABCLIA [id number] [address], [facility] [place] Hemoglobin (Bld) [Mass/Vol] 13.2 g/dL Normal 13.0-17.0 [facility] Comment on above: Order Comment: Speci men Type: BLOOD SPECIMENOrdering Facility: [facility] Address: [address] [place] [address] Performed By: #### 5 7021-8 ####[facility] LABIA [id number] [place] [address] [place] Immature granulocytes (Bld) [#/Vol] 10*3/uL Normal <0.10 [facility] Comment on above: Order Comment: Speci men Type: BLOOD SPECIMENOrdering Facility: [facility] Address: [address] [place] [address] Performed By: #### 5 7021-8 ####[facility] LABCLIA [id number] [place] [address] [place] Immature granulocytes/100 WBC (Bld) 0.2 % Normal [facility] Comment on above: Order Comment: Speci men Type: BLOOD SPECIMENOrdering Facility: [facility] Address: [address] [place] [address] Performed By: #### 5 7021-8 ####[facility] LABCLIA [id number] [place] [address] [place] Lymphocytes (Bld) [#/Vol] 1.55 10*3/uL Normal 1.00-4.00 [facility] Comment on above: Order Comment: Speci men Type: BLOOD SPECIMENOrdering Facility: [facility] Address: [address] [place] [address] Performed By: #### 5 7021-8 ####[facility] LABCLIA [id number] [place] [address] [place] Lymphocytes/100 WBC (Bld) 38.3 % Normal [facility] Comment on above: Order Comment: Speci men Type: BLOOD SPECIMENOrdering Facility: [facility] Address: [address] [place] [address] Performed By: #### 5 7021-8 ####[facility] LABCLIA [id number] [place] [address] [place] MCH (RBC) [Entitic mass] 34.8 pg High 26.0-34.0 [facility] Comment on above: Order Comment: Speci men Type: BLOOD SPECIMENOrdering Facility: [facility] Address: [address] [place] [address] Performed By: #### 5 7021-8 ####[facility] LABCLIA [id number] [place] [address] [place] MCHC (RBC) [Mass/Vol] 34.6 g/dL Normal 30.5-36.0 [facility] Comment on above: Order Comment: Speci men Type: BLOOD SPECIMENOrdering Facility: [facility] Address: [address] [place] [address] Performed By: #### 5 7021-8 ####[facility] LABCLIA [id number] [place] [address] [place] MCV (RBC) [Entitic vol] 100.5 fL High 80.0-100.0 [facility] Comment on above: Order Comment: Speci men Type: BLOOD SPECIMENOrdering Facility: [facility] Address: [address] [place] [address] Performed By: #### 5 7021-8 ####[facility] LABIA [id number] [place] [address] [place] Monocytes (Bld) [#/Vol] 0.44 10*3/uL Normal <0.87 [facility] Comment on above: Order Comment: Speci men Type: BLOOD SPECIMENOrdering Facility: [facility] Address: [address] [place] [address] Performed By: #### 5 7021-8 ####[facility] LABCLIA [id number] [place] [address] [place] Monocytes/100 WBC (Bld) 10.9 % Normal [facility] Comment on above: Order Comment: Speci men Type: BLOOD SPECIMENOrdering Facility: [facility] Address: [address] [place] [address] Performed By: #### 5 7021-8 ####[facility] LABCLIA [id number] [address] [address] [place] Neutrophils (Bld) [#/Vol] 1.87 10*3/uL Normal 1.45-7.50 [facility] Comment on above: Order Comment: Speci men Type: BLOOD SPECIMENOrdering Facility: [facility] Address: [address] [place] [address] Performed By: #### 5 7021-8 ####[facility] LABCLIA [id number] [facility] [place] [address] [place] Neutrophils/100 WBC (Bld) 46.2 % Normal [facility] Comment on above: Order Comment: Speci men Type: BLOOD SPECIMENOrdering Facility: [facility] Address: [address] [place] [address] Performed By: #### 5 7021-8 ####[facility] LABCLIA [id number] [place] [address] [place] Nucleated RBC (Bld) [#/Vol] 10*3/uL Normal <0.01 [facility] Comment on above: Order Comment: Speci men Type: BLOOD SPECIMENOrdering Facility: [facility] Address: [address] [place] [address] Performed By: #### 5 7021-8 ####[facility] LABCLIA [id number] [place] [address] [place] Nucleated RBC/100 WBC (Bld) [Ratio] 0.0 /100 WBC Normal [facility] Comment on above: Order Comment: Speci men Type: BLOOD SPECIMENOrdering Facility: [facility] Address: [address] [place] [address] Performed By: #### 5 7021-8 ####[facility] LABCLIA [id number] [address] [address] [place] Platelet mean volume (Bld) [Entitic vol] 9.2 fL Normal 9.0-12.7 [facility] Comment on above: Order Comment: Speci men Type: BLOOD SPECIMENOrdering Facility: [facility] Address: [address] [place] [address] Performed By: #### 5 7021-8 ####[facility] LABIA [id number] [address] [address] [place] Platelets (Bld) [#/Vol] 240 10*3/uL Normal 150-400 [facility] Comment on above: Order Comment: Speci men Type: BLOOD SPECIMENOrdering Facility: [facility] Address: [address] [place] [address] Performed By: #### 5 7021-8 ####[facility] LABIA [id number] [address] [address] [place] RBC (Bld) [#/Vol] 3.79 10*6/uL Low 4.20-6.00 [facility] Comment on above: Order Comment: Speci men Type: BLOOD SPECIMENOrdering Facility: [facility] Address: [address] [place] [address] Performed By: #### 5 7021-8 ####[facility] LABIA [id number] [address] [address] [place] WBC (Bld) [#/Vol] 4.05 10*3/uL Normal 3.70-11.00 [facility] Comment on above: Order Comment: Speci men Type: BLOOD SPECIMENOrdering Facility: [facility] Address: [address] [place] [address] Performed By: #### 5 7021-8 ####[facility] LABIA [id number] [address] [address] [place] Comprehensive metabolic 2000 panelon 02-14-2025 Albumin [Mass/Vol] 4.7 g/dL Normal 3.9-4.9 [facility] Comment on above: Order Comment: Speci men Type: BLOOD SPECIMENOrdering Facility: [facility] Address: [address] [place] [address] Performed By: #### 2 4323-8, LIPNF ####[facility] LABCLIA [id number] [place] [address] [place] ALP [Catalytic activity/Vol] 56 U/L Normal 38-113 [facility] Comment on above: Order Comment: Speci men Type: BLOOD SPECIMENOrdering Facility: [facility] Address: [address] [place] [address] Performed By: #### 2 4323-8, LIPNF ####[facility] LABCLIA [id number] [place] [address] [place] ALT [Catalytic activity/Vol] 12 U/L Normal 10-54 [facility] Comment on above: Order Comment: Speci men Type: BLOOD SPECIMENOrdering Facility: [facility] Address: [address] [place] [address] Performed By: #### 2 4323-8, LIPNF ####[facility] LABCLIA [id number] [place] [address] [place] Anion gap [Moles/Vol] 14 mmol/L Normal 8-15 [facility] Comment on above: Order Comment: Speci men Type: BLOOD SPECIMENOrdering Facility: [facility] Address: [address] [place] [address] Performed By: #### 2 4323-8, LIPNF ####[facility] LABCLIA [id number] [place] [id number] [place] AST [Catalytic activity/Vol] 20 U/L Normal 14-40 [facility] Comment on above: Order Comment: Speci men Type: BLOOD SPECIMENOrdering Facility: [facility] Address: [address] [place] [address] Performed By: #### 2 4323-8, LIPNF ####[facility] LABCLIA [id number] [place] [id number] [place] Bilirubin [Mass/Vol] 0.5 mg/dL Normal 0.2-1.3 [facility] Comment on above: Order Comment: Speci men Type: BLOOD SPECIMENOrdering Facility: [facility] Address: [address] [place] [address] Performed By: #### 2 4323-8, LIPNF ####[facility] LABCLIA [id number] [facility] [place] [address] [place] Calcium [Mass/Vol] 10.3 mg/dL High 8.5-10.2 [facility] Comment on above: Order Comment: Speci men Type: BLOOD SPECIMENOrdering Facility: [facility] Address: [address] [place] [address] Performed By: #### 2 4323-8, LIPNF ####[facility] LABCLIA [id number] [place] [address] [place] Chloride [Moles/Vol] 100 mmol/L Normal 98-107 [facility] Comment on above: Order Comment: Speci men Type: BLOOD SPECIMENOrdering Facility: [facility] Address: [address] [place] [address] Performed By: #### 2 4323-8, LIPNF ####[facility] LABCLIA [id number] [place] [address] [place] CO2 [Moles/Vol] 24 mmol/L Normal 22-30 [facility] Comment on above: Order Comment: Speci men Type: BLOOD SPECIMENOrdering Facility: [facility] Address: [address] [place] [address] Performed By: #### 2 4323-8, LIPNF ####[facility] LABCLIA [id number] [place] [id number] [place] Creatinine [Mass/Vol] 0.88 mg/dL Normal 0.73-1.22 [facility] Comment on above: Order Comment: Speci men Type: BLOOD SPECIMENOrdering Facility: [facility] Address: [address] [place] [address] Performed By: #### 2 4323-8, LIPNF ####[facility] [id number] [place] [address] [place] eGFRcr SerPlBld CKD-EPI 2020 84 mL/min/1.73m??? Normal >=60 [facility] Comment on above: Order Comment: Vera men Type: BLOOD SPECIMENOrdering Facility: [facility] Address: [address] [place] [address] Result Comment: Cristy mated Glomerular Filtration Rate [...] GFR. Performed By: #### 2 4323-8, LIPNF ####[facility] LABIA [id number] [place] [address] [place] Glucose [Mass/Vol] 165 mg/dL High 74-99 [facility] Comment on above: Order Comment: Vera monterroso Type: BLOOD SPECIMENOrdering Facility: [facility] Address: [address] [place] [address] Result Comment: The [place] Diabetes Association (ADA) provides guidance for cutoff [...] Standards of Medical Care in Diabetes 2016, [place] [employer]. Diabetes Care. 2016.39(Suppl 1). Performed By: #### 2 4323-8, LIPNF ####[facility] LABCLIA [id number] [address] [address] [place] Potassium [Moles/Vol] 4.6 mmol/L Normal 3.7-5.1 [facility] Comment on above: Order Comment: Speci men Type: BLOOD SPECIMENOrdering Facility: [facility] Address: [address] [place] [address] Performed By: #### 2 4323-8, LIPNF ####[facility] LABCLIA [id number] [place] [id number] [place] Protein [Mass/Vol] 7.2 g/dL Normal 6.3-8.0 [facility] Comment on above: Order Comment: Speci men Type: BLOOD SPECIMENOrdering Facility: [facility] Address: [address] [place] [address] Performed By: #### 2 4323-8, LIPNF ####[facility] LABIA [id number] [place] [address] [place] Sodium [Moles/Vol] 138 mmol/L Normal 136-144 [facility] Comment on above: Order Comment: Speci men Type: BLOOD SPECIMENOrdering Facility: [facility] Address: [address] [place] [address] Performed By: #### 2 4323-8, LIPNF ####[facility] LABCLIA [id number] [place] [id number] [place] Urea nitrogen [Mass/Vol] 14 mg/dL Normal 9-24 [facility] Comment on above: Order Comment: Speci men Type: BLOOD SPECIMENOrdering Facility: [facility] Address: [address] [place] [address] Performed By: #### 2 4323-8, LIPNF ####[facility] LABCLIA [id number] [place] [id number] [place] HbA1c (Bld)on 02-14-2025 Average glucose Estimated from glycated hemoglobin (Bld) [Mass/Vol] 151 mg/dL Normal [facility] Comment on above: Order Comment: Vera monterroso Type: BLOOD SPECIMENOrdering Facility: [facility] Address: [address] [place] [address] Result Comment: eAG: (Estimated average glucose) is a calculated value from HgbA1c and is financial services representative of the average blood glucose level in the last 2-3 month period. Performed By: #### 5 5454-3 ####[facility] LABCLIA [id number] [place] [address] [place] HbA1c (Bld) [Mass fraction] 6.9 % High 4.3-5.6 [facility] Comment on above: Order Comment: Vera monterroso Type: BLOOD SPECIMENOrdering Facility: [facility] Address: [address] [place] [address] Result Comment: Amer [place] Diabetes Association guidelines indicate that patients with HgbA1c in the range 5.7-6.4% are at increased risk for development of diabetes, and intervention by lifestyle modification may be beneficial. HgbA1c greater or equal to 6.5% is considered diagnostic of diabetes. Performed By: #### 5 5454-3 ####[facility] LABCLIA [id number] [place] [address] [place] LIPID PANEL, NONFASTINGon Cholesterol [Mass/Vol] 210 mg/dL High <200 [facility] Comment on above: Order Comment: Vera men Type: BLOOD SPECIMENOrdering Facility: [facility] Address: [address] [place] [address] Result Comment: <200 mg/dL, Desirable 200-239 mg/dL, Borderline high >239 mg/dL, High Performed By: #### 2 4323-8, LIPNF ####[facility] LABCLIA [id number] [place] [id number] [place] HDL CHOLESTEROL, NF 40 mg/dL Normal >39 [facility] Comment on above: Order Comment: Speci men Type: BLOOD SPECIMENOrdering Facility: [facility] Address: [address] [place] [address] Result Comment: 40-5 9 mg/dL, Acceptable >59 mg/dL, High: Negative risk factor for coronary heart disease <40 mg/dL, Low: Positive risk factor for coronary heart disease Performed By: #### 2 4323-8, LIPNF ####[facility] LABCLIA [id number] [address] [place] LDL CHOLESTEROL CALCULATED, NF 120 mg/dL High <100 [facility] Comment on above: Order Comment: Speci men Type: BLOOD SPECIMENOrdering Facility: [facility] Address: [address] [place] [address] Result Comment: <100 mg/dL, Optimal 100-129 mg/dL, Near optimal/above optimal 130-159 mg/dL, Borderline high 160-189 mg/dL, High >189 mg/dL, Very high Secondary prevention optimal LDL Cholesterol levels are recommended to be <70 mg/dL LDL cholesterol is calculated using the Fuller-NIH equation. Performed By: #### 2 4323-8, LIPNF ####[facility] LABCLIA [id number] [address] OF [facility] LDL/HDL RATIO, NF 3.00 mg/dL High <2.54 [facility] Comment on above: Order Comment: Speci men Type: BLOOD SPECIMENOrdering Facility: [facility] Address: [address] [place] [address] Result Comment: Refe lalithace: 1. National Cholesterol Education Program ATP III Guideline At-A-Glance Quick Desk Reference: National Heart, Lung, and Blood Gar[place]. National Institutes of Health. 2001: NIH Publication No. 01-3305. 2. An International Atherosclerosis Society position paper: global recommendations for the management of dyslipidemia: executive summary, Atherosclerosis. 2014: 232(2):410-413. Performed By: #### 2 4323-8, LIPNF ####[facility] LABCLIA [id number] [address] [id number] [address] [place] NON HDL CHOL, NF 170 mg/dL High <130 [facility] Comment on above: Order Comment: Speci men Type: BLOOD SPECIMENOrdering Facility: [facility] Address: [address] [place] [address] Result Comment: <130 mg/dL, Optimal 130-159 mg/dL, Near optimal/above optimal 160-189 mg/dL, Borderline high 190-219 mg/dL, High >219 mg/dL, Very high Secondary prevention optimal non HDL Cholesterol levels are recommended to be <100 mg/dL Performed By: #### 2 4323-8, LIPNF ####[facility] LABCLIA [id number] [place] [address] [place] T CHOL/HDL RATIO NF 5.25 mg/dL High <5.10 [facility] Comment on above: Order Comment: Speci men Type: BLOOD SPECIMENOrdering Facility: [facility] Address: [address] [place] [address] Performed By: #### 2 4323-8, LIPNF ####[facility] LABCLIA [id number] [place] [address] [place] TRIGLYCERIDES, NF 282 mg/dL High <150 [facility] Comment on above: Order Comment: Speci men Type: BLOOD SPECIMENOrdering Facility: [facility] Address: [address] [place] [address] Result Comment: <150 mg/dL, Normal 150-199 mg/dL, Borderline high 200-499 mg/dL, High >499 mg/dL, Very high Performed By: #### 2 4323-8, LIPNF ####[facility] LABCLIA [id number] [place] [address] [place] VLDL CHOLESTEROL, NF 49 mg/dL High <30 [facility] Comment on above: Order Comment: Speci men Type: BLOOD SPECIMENOrdering Facility: [facility] Address: [address] [place] [address] Performed By: #### 2 4323-8, LIPNF ####[facility] LABIA [id number] [place] [address] [place] PSA/PROSTATE SPECIFIC ANTIGE N SCREENINGon 02-14-2025 Prostate specific Ag [Mass/Vol] ng/mL Normal <2.60 [facility] Comment on above: Order Comment: Speci men Type: BLOOD SPECIMENOrdering Facility: [facility] Address: [address] [place] [address] Result Comment: Tota l PSA test methodology used is the Electrochemiluminescence Immunoassay by [employer]. Total PSA values by differing methodologies cannot be interchanged. Performed By: #### P SAS1 ####[facility] LABIA [id number] [place] [address] [place] Urinalysis complete panel (U )on 02-14-2025 Bacteria LM.HPF (Urine sed) [#/Area] Negative Normal Negative [facility] Comment on above: Order Comment: Speci men Type: URINE SPECIMENOrdering Facility: [facility] Address: [address] [place] [address] Performed By: #### 2 4356-8 ####[facility] LABIA [id number] [place] [address] [place] Bilirubin Ql (U) 1+ Abnormal Negative [facility] Comment on above: Order Comment: Speci men Type: URINE SPECIMENOrdering Facility: [facility] Address: [address] [place] [address] Result Comment: Sugg est correlation with clinical findings and serum bilirubin if clinically indicated. Performed By: #### 2 4356-8 ####[facility] LABIA [id number] [place] [address] [place] CALCIUM OXALATE CRYSTALS (UA) Few Abnormal None Seen [facility] Comment on above: Order Comment: Speci men Type: URINE SPECIMENOrdering Facility: [facility] Address: [address] [place] [address] Performed By: #### 2 4356-8 ####[facility] LABCLIA [id number] [address] [place] [address] [place] Clarity (Unsp spec) Clear Normal Clear [facility] Comment on above: Order Comment: Speci men Type: URINE SPECIMENOrdering Facility: [facility] Address: [address] [place] [address] Performed By: #### 2 4356-8 ####[facility] LABCLIA [id number] [address] [place] [address] [place] Color (U) Dark Yellow Abnormal Yellow [facility] Comment on above: Order Comment: Speci men Type: URINE SPECIMENOrdering Facility: [facility] Address: [address] [place] [address]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 office visit. Pwftowgb-nex-znn reports he has not been eating much [...] some intermittent diarrhea which started in the skilled nursing. Can happen about every other day. E [...] well nourished. (more content not included)... Normal [facility] 06-30-2024 CNPN Telephone (FAMBrookeWS) KEITH KEVIN ([id number]) 1940 M Date Time Provider Department 06/30/24 PODLOGARTEGAN During your visit today, we recorded the following information about you: Diann Bolden, ESAU 06/30/2024 10:34 AM Signed Pts son Melchor called in, he states he is Pts POA. I asked if we had the paperwork, and he states no, the skilled nursing does. 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 He said he may have some crackers [...] would give them to him at the skilled nursing. 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 Normal [facility] Comprehensive metabolic 2000 panelon 06-30-2024 Albumin [Mass/Vol] 4.3 g/dL Normal 3.9-4.9 [facility] Comment on above: Order Comment: Speci men Type: BLOOD SPECIMENOrdering Facility: [facility] Address: [address] [place] [id number] Performed By: #### 2 4323-8 ####[facility] LABCLIA [id number] [facility] [id number] [place] [id number] [place] ALP [Catalytic activity/Vol] 67 U/L Normal 38-113 [facility] Comment on above: Order Comment: Speci men Type: BLOOD SPECIMENOrdering Facility: [facility] Address: [address] [place] [address] Performed By: #### 2 4323-8 ####[facility] LABCLIA [id number] [place] [address] [place] ALT [Catalytic activity/Vol] 12 U/L Normal 10-54 [facility] Comment on above: Order Comment: Speci men Type: BLOOD SPECIMENOrdering Facility: [facility] Address: [address] [place] [address] Performed By: #### 2 4323-8 ####[facility] LABCLIA [id number] [place] [address] [place] Anion gap [Moles/Vol] 15 mmol/L Normal 8-15 [facility] Comment on above: Order Comment: Speci men Type: BLOOD SPECIMENOrdering Facility: [facility] Address: [address] [place] [address] Performed By: #### 2 4323-8 ####[facility] LABCLIA [id number] [place] [address] [place] AST [Catalytic activity/Vol] 16 U/L Normal 14-40 [facility] Comment on above: Order Comment: Speci men Type: BLOOD SPECIMENOrdering Facility: [facility] Address: [address] [place], [place] [id number] Performed By: #### 2 4323-8 ####[facility] LABCLIA [id number] [place] [id number] [place] Bilirubin [Mass/Vol] 0.3 mg/dL Normal 0.2-1.3 [facility] Comment on above: Order Comment: Speci men Type: BLOOD SPECIMENOrdering Facility: [facility] Address: [address] [place], [place] [id number] Performed By: #### 2 4323-8 ####[facility] LABCLIA [id number] [address] [address] [place] Calcium [Mass/Vol] 9.9 mg/dL Normal 8.5-10.2 [facility] Comment on above: Order Comment: Speci men Type: BLOOD SPECIMENOrdering Facility: [facility] Address: [address] [place] [address] Performed By: #### 2 4323-8 ####[facility] LABCLIA [id number] [place] [address] [place] Chloride [Moles/Vol] 102 mmol/L Normal 98-107 [facility] Comment on above: Order Comment: Speci men Type: BLOOD SPECIMENOrdering Facility: [facility] Address: [address] [place] [address] Performed By: #### 2 4323-8 ####[facility] LABCLIA [id number] [place] [address] [place] CO2 [Moles/Vol] 23 mmol/L Normal 22-30 [facility] Comment on above: Order Comment: Speci men Type: BLOOD SPECIMENOrdering Facility: [facility] Address: [address] [place] [address] Performed By: #### 2 4323-8 ####[facility] LABCLIA [id number] [place] [address] [place] Creatinine [Mass/Vol] 0.78 mg/dL Normal 0.73-1.22 [facility] Comment on above: Order Comment: Speci men Type: BLOOD SPECIMENOrdering Facility: [facility] Address: [address] [place] [address] Performed By: #### 2 4323-8 ####[facility] LABCLIA [id number] [place] [address] [place] Creatinine and Glomerular filtration rate.predicted panel (S/P/Bld) 88 mL/min/1.73m??? Normal >=60 [facility] Comment on above: Order Comment: Vera monterroso Type: BLOOD SPECIMENOrdering Facility: [facility] Address: [address] [place] [address] Result Comment: Cristy mated Glomerular Filtration Rate [...] actual GFR. Performed By: #### 2 4323-8 ####[facility] LABIA [id number] [place] [address] [place] Glucose [Mass/Vol] 143 mg/dL High 74-99 [facility] Comment on above: Order Comment: Vera monterroso Type: BLOOD SPECIMENOrdering Facility: [facility] Address: [address] [place] [address] Result Comment: The [place] [employer] (ADA) provides guidance for cutoff [...] Standards of Medical Care in Diabetes 2016, [place] [employer]. Diabetes Care. 2016.39(Suppl 1). Performed By: #### 2 4323-8 ####[facility] LABIA [id number] [place] [address] [place] Potassium [Moles/Vol] 4.1 mmol/L Normal 3.7-5.1 [facility] Comment on above: Order Comment: Vera monterroso Type: BLOOD SPECIMENOrdering Facility: [facility] Address: [address] [place] [id number] Performed By: #### 2 4323-8 ####[facility] LABCLIA [id number] [place] [address] [place] Protein [Mass/Vol] 7.4 g/dL Normal 6.3-8.0 [facility] Comment on above: Order Comment: Speci men Type: BLOOD SPECIMENOrdering Facility: [facility] Address: [address] [place] [address] Performed By: #### 2 4323-8 ####[facility] LABCLIA [id number] [place] [address] [place] Sodium [Moles/Vol] 140 mmol/L Normal 136-144 [facility] Comment on above: Order Comment: Speci men Type: BLOOD SPECIMENOrdering Facility: [facility] Address: [address] [place] [address] Performed By: #### 2 4323-8 ####[facility] LABCLIA [id number] [place] [address] [place] Urea nitrogen [Mass/Vol] 11 mg/dL Normal 9-24 [facility] Comment on above: Order Comment: Speci men Type: BLOOD SPECIMENOrdering Facility: [facility] Address: [address] [place] [address] Performed By: #### 2 4323-8 ####[facility] LABCLIA [id number] [place] [address] [place] HbA1c (Bld)on 06-30-2024 Average glucose Estimated from glycated hemoglobin (Bld) [Mass/Vol] 137 mg/dL [facility] Comment on above: eAG: (Estimated aver age glucose) is a calculated value from HgbA1c and is financial services representative of the average blood glucose level in the last 2-3 month period. HbA1c (Bld) [Mass fraction] 6.4 % High 4.3 - 5.6 % [facility] Comment on above: [place] [employer] sociation guidelines indicate that patients with HgbA1c in the range 5.7-6.4% are at increased risk for development of diabetes, and intervention by lifestyle modification may be beneficial. HgbA1c greater or equal to 6.5% is considered diagnostic of diabetes. Interpretation and review of laboratory results Abnormal [facility] Average glucose Estimated from glycated hemoglobin (Bld) [Mass/Vol] 137 mg/dL Normal [facility] Comment on above: Order Comment: Speci men Type: BLOOD SPECIMENOrdering Facility: [facility] Address: [address] [place] [address] Result Comment: eAG: (Estimated average glucose) is a calculated value from HgbA1c and is financial services representative of the average blood glucose level in the last 2-3 month period. Performed By: #### 5 5454-3 ####[facility] LABCLIA [id number] [place] [address] [place] HbA1c (Bld) [Mass fraction] 6.4 % High 4.3-5.6 [facility] Comment on above: Order Comment: Vera monterroso Type: BLOOD SPECIMENOrdering Facility: [facility] Address: [address] [place] [address] Result Comment: [place] Diabetes Association guidelines indicate that patients with HgbA1c in the range 5.7-6.4% are at increased risk for development of diabetes, and intervention by lifestyle modification may be beneficial. HgbA1c greater or equal to 6.5% is considered diagnostic of diabetes. Performed By: #### 5 5454-3 ####[facility] LABCLIA [id number] [place] [address] [place] Basic Metabolic Profile (BMP )on 05-23-2024 BUN Normal 7-18 [facility] Comment on above: Result Comment: Canc elled via OM: Order cancelled - Patient discharged Performed By: #### L 100.0100, L500.2500 ####[facility] [address] [place], [address] BUN/CRE Normal 10-20 [facility] Comment on above: Result Comment: Canc elled via OM: Order cancelled - Patient discharged Performed By: #### L 100.0100, L500.2500 ####[facility] [address] [place], [address] CA,Total Normal 8.5-10.1 [facility] Comment on above: Result Comment: Canc elled via OM: Order cancelled - Patient discharged Performed By: #### L 100.0100, L500.2500 ####[facility] [address] [place], [address] CL Normal 98-107 [facility] Comment on above: Result Comment: Canc elled via OM: Order cancelled - Patient discharged Performed By: #### L 100.0100, L500.2500 ####[facility] [address] [place], [address] CO2 Normal 21.0-32.0 [facility] Comment on above: Result Comment: Canc elled via OM: Order cancelled - Patient discharged Performed By: #### L 100.0100, L500.2500 ####[facility] [address] [place], [address] CREAT,SERUM Normal 0.70-1.30 [facility] Comment on above: Result Comment: Canc elled via OM: Order cancelled - Patient discharged Performed By: #### L 100.0100, L500.2500 ####[facility] [address] [place], [address] EST GFR Normal >60 [facility] Comment on above: Result Comment: Canc elled via OM: Order cancelled - Patient discharged Performed By: #### L 100.0100, L500.2500 ####[facility] [address] [place], [address] EST GFR - AA Normal >60 [facility] Comment on above: Result Comment: Canc elled via OM: Order cancelled - Patient discharged Performed By: #### L 100.0100, L500.2500 ####[facility] [address] [place], [address] GAP Normal 5-15 [facility] Comment on above: Result Comment: Canc elled via OM: Order cancelled - Patient discharged Performed By: #### L 100.0100, L500.2500 ####[facility] [address] [place], [address] GLU Normal 74-106 [facility] Comment on above: Result Comment: Canc elled via OM: Order cancelled - Patient discharged Performed By: #### L 100.0100, L500.2500 ####[facility] [address] [place], [address] Potassium Normal 3.5-5.1 [facility] Comment on above: Result Comment: Canc elled via OM: Order cancelled - Patient discharged Performed By: #### L 100.0100, L500.2500 ####[facility] [address] [place], [address] Basic Metabolic Profile (BMP) Normal 136-145 [facility] Comment on above: Result Comment: Canc elled via OM: Order cancelled - Patient discharged Performed By: #### L 100.0100, L500.2500 ####[facility] [address] [place], [address] CBC W/Diff, Automatedon 11-0 Absolute Neut Normal 2.0-7.7 [facility] Comment on above: Result Comment: Canc elled via OM: Order cancelled - Patient discharged Performed By: #### L 100.0100, L500.2500 ####[facility] [address] [place], [address] HCT Normal 40-54 [facility] Comment on above: Result Comment: Canc elled via OM: Order cancelled - Patient discharged Performed By: #### L 100.0100, L500.2500 ####[facility] [address] [place], [address] HGB Normal 13.0-16.5 [facility] Comment on above: Result Comment: Canc elled via OM: Order cancelled - Patient discharged Performed By: #### L 100.0100, L500.2500 ####[facility] [address], [address] MCH Normal 27.0-32.0 [facility] Comment on above: Result Comment: Canc elled via OM: Order cancelled - Patient discharged Performed By: #### L 100.0100, L500.2500 ####[facility] [address] [place], [address] MCHC Normal 32-36 [facility] Comment on above: Result Comment: Canc elled via OM: Order cancelled - Patient discharged Performed By: #### L 100.0100, L500.2500 ####[facility] [address] [place], [address] MCV Normal 80-94 [facility] Comment on above: Result Comment: Canc elled via OM: Order cancelled - Patient discharged Performed By: #### L 100.0100, L500.2500 ####[facility] [address] [place], [address] NEUT% Normal 47-70 [facility] Comment on above: Result Comment: Canc elled via OM: Order cancelled - Patient discharged Performed By: #### L 100.0100, L500.2500 ####[facility] [address] [place], [address] PLT Normal 150-450 [facility] Comment on above: Result Comment: Canc elled via OM: Order cancelled - Patient discharged Performed By: #### L 100.0100, L500.2500 ####[facility] [address] [place], [address] RBC Normal 4.6-6.2 [facility] Comment on above: Result Comment: Canc elled via OM: Order cancelled - Patient discharged Performed By: #### L 100.0100, L500.2500 ####[facility] [address] [place], [address] RDW CV Normal 11.6-14.6 [facility] Comment on above: Result Comment: Canc elled via OM: Order cancelled - Patient discharged Performed By: #### L 100.0100, L500.2500 ####[facility] [address] [place], [address] RDW SD Normal 35.1-43.9 [facility] Comment on above: Result Comment: Canc elled via OM: Order cancelled - Patient discharged Performed By: #### L 100.0100, L500.2500 ####[facility] [address] [place], [address] WBC Normal 4.4-11.0 [facility] Comment on above: Result Comment: Canc elled via OM: Order cancelled - Patient discharged Performed By: #### L 100.0100, L500.2500 ####[facility] [address] [place], [address] Basic Metabolic Profile (BMP )on 05-16-2024 BUN Normal 7-18 [facility] Comment on above: Result Comment: Canc elled via OM: Order cancelled - Patient discharged Performed By: #### L 100.0100, L500.2500 #### [facility] [address] [place], [address] BUN/CRE Normal 10-20 [facility] Comment on above: Result Comment: Canc elled via OM: Order cancelled - Patient discharged Performed By: #### L 100.0100, L500.2500 #### [facility] [address] [place], [address] CA,Total Normal 8.5-10.1 [facility] Comment on above: Result Comment: Canc elled via OM: Order cancelled - Patient discharged Performed By: #### L 100.0100, L500.2500 #### [facility] [address] [place], [address] CL Normal 98-107 [facility] Comment on above: Result Comment: Canc elled via OM: Order cancelled - Patient discharged Performed By: #### L 100.0100, L500.2500 #### [facility] [address] [place], [address] CO2 Normal 21.0-32.0 [facility] Comment on above: Result Comment: Canc elled via OM: Order cancelled - Patient discharged Performed By: #### L 100.0100, L500.2500 #### [facility] [address] [place], [address] CREAT,SERUM Normal 0.70-1.30 [facility] Comment on above: Result Comment: Canc elled via OM: Order cancelled - Patient discharged Performed By: #### L 100.0100, L500.2500 #### [facility] [address] [place], [address] EST GFR Normal >60 [facility] Comment on above: Result Comment: Canc elled via OM: Order cancelled - Patient discharged Performed By: #### L 100.0100, L500.2500 #### [facility] [address] [place], [address] EST GFR - AA Normal >60 [facility] Comment on above: Result Comment: Canc elled via OM: Order cancelled - Patient discharged Performed By: #### L 100.0100, L500.2500 #### [facility] [address] [place], [address] GAP Normal 5-15 [facility] Comment on above: Result Comment: Canc elled via OM: Order cancelled - Patient discharged Performed By: #### L 100.0100, L500.2500 #### [facility] [address] [place], [address] GLU Normal 74-106 [facility] Comment on above: Result Comment: Canc elled via OM: Order cancelled - Patient discharged Performed By: #### L 100.0100, L500.2500 #### [facility] [address] [place], [address] Potassium Normal 3.5-5.1 [facility] Comment on above: Result Comment: Canc elled via OM: Order cancelled - Patient discharged Performed By: #### L 100.0100, L500.2500 #### [facility] [address] [place], [address] Basic Metabolic Profile (BMP) Normal 136-145 [facility] Comment on above: Result Comment: Canc elled via OM: Order cancelled - Patient discharged Performed By: #### L 100.0100, L500.2500 #### [facility] [address] [place], [address] CBC W/Diff, Automatedon 11-0 Absolute Neut Normal 2.0-7.7 [facility] Comment on above: Result Comment: Canc elled via OM: Order cancelled - Patient discharged Performed By: #### L 100.0100, L500.2500 #### [facility] [address] [place], [address] HCT Normal 40-54 [facility] Comment on above: Result Comment: Canc elled via OM: Order cancelled - Patient discharged Performed By: #### L 100.0100, L500.2500 #### [facility] [address] [place], [address] HGB Normal 13.0-16.5 [facility] Comment on above: Result Comment: Canc elled via OM: Order cancelled - Patient discharged Performed By: #### L 100.0100, L500.2500 #### [facility] [address] [place], [address] MCH Normal 27.0-32.0 [facility] Comment on above: Result Comment: Canc elled via OM: Order cancelled - Patient discharged Performed By: #### L 100.0100, L500.2500 #### [facility] [address] [place], [address] MCHC Normal 32-36 [facility] Comment on above: Result Comment: Canc elled via OM: Order cancelled - Patient discharged Performed By: #### L 100.0100, L500.2500 #### [facility] [address] [place], [address] MCV Normal 80-94 [facility] Comment on above: Result Comment: Canc elled via OM: Order cancelled - Patient discharged Performed By: #### L 100.0100, L500.2500 #### [facility] [address] [place], [address] NEUT% Normal 47-70 [facility] Comment on above: Result Comment: Canc elled via OM: Order cancelled - Patient discharged Performed By: #### L 100.0100, L500.2500 #### [facility] [address] [place], [address] PLT Normal 150-450 [facility] Comment on above: Result Comment: Canc elled via OM: Order cancelled - Patient discharged Performed By: #### L 100.0100, L500.2500 #### [facility] [address] [place], [address] RBC Normal 4.6-6.2 [facility] Comment on above: Result Comment: Canc elled via OM: Order cancelled - Patient discharged Performed By: #### L 100.0100, L500.2500 #### [facility] [address] [place], [address] RDW CV Normal 11.6-14.6 [facility] Comment on above: Result Comment: Canc elled via OM: Order cancelled - Patient discharged Performed By: #### L 100.0100, L500.2500 #### [facility] [address] [place], [address] RDW SD Normal 35.1-43.9 [facility] Comment on above: Result Comment: Canc elled via OM: Order cancelled - Patient discharged Performed By: #### L 100.0100, L500.2500 #### [facility] [address] [place], [address] WBC Normal 4.4-11.0 [facility] Comment on above: Result Comment: Canc elled via OM: Order cancelled - Patient discharged Performed By: #### L 100.0100, L500.2500 #### [facility] [address] [place], [address] Basic Metabolic Profile (BMP )on 05-09-2024 BUN Normal -18 [facility] Comment on above: Result Comment: Canc elled via OM: Order cancelled - Patient discharged Performed By: #### L 100.0100, L500.2500 ####[facility] [address] [place], [address] BUN/CRE Normal - [facility] Comment on above: Result Comment: Canc elled via OM: Order cancelled - Patient discharged Performed By: #### L 100.0100, L500.2500 ####[facility] [address] [place], [address] CA,Total Normal 8.5-10.1 [facility] Comment on above: Result Comment: Canc elled via OM: Order cancelled - Patient discharged Performed By: #### L 100.0100, L500.2500 ####[facility] [address] [place], [address] CL Normal 98-107 [facility] Comment on above: Result Comment: Canc elled via OM: Order cancelled - Patient discharged Performed By: #### L 100.0100, L500.2500 ####[facility] [address] [place], [address] CO2 Normal 21.0-32.0 [facility] Comment on above: Result Comment: Canc elled via OM: Order cancelled - Patient discharged Performed By: #### L 100.0100, L500.2500 ####[facility] [address] [place], [address] CREAT,SERUM Normal 0.70-1.30 [facility] Comment on above: Result Comment: Canc elled via OM: Order cancelled - Patient discharged Performed By: #### L 100.0100, L500.2500 ####[facility] [address] [place], [address] EST GFR Normal >60 [facility] Comment on above: Result Comment: Canc elled via OM: Order cancelled - Patient discharged Performed By: #### L 100.0100, L500.2500 ####[facility] [address] [place], [address] EST GFR - AA Normal >60 [facility] Comment on above: Result Comment: Canc elled via OM: Order cancelled - Patient discharged Performed By: #### L 100.0100, L500.2500 ####[facility] [address] [place], [address] GAP Normal 5-15 [facility] Comment on above: Result Comment: Canc elled via OM: Order cancelled - Patient discharged Performed By: #### L 100.0100, L500.2500 ####[facility] [address] [place], [address] GLU Normal 74-106 [facility] Comment on above: Result Comment: Canc elled via OM: Order cancelled - Patient discharged Performed By: #### L 100.0100, L500.2500 ####[facility] [address] [place], [address] Potassium Normal 3.5-5.1 [facility] Comment on above: Result Comment: Canc elled via OM: Order cancelled - Patient discharged Performed By: #### L 100.0100, L500.2500 ####[facility] [address] [place], [address] Basic Metabolic Profile (BMP) Normal 136-145 [facility] Comment on above: Result Comment: Canc elled via OM: Order cancelled - Patient discharged Performed By: #### L 100.0100, L500.2500 ####[facility] [address] [place], [address] CBC W/Diff, Automatedon 10-2 Absolute Neut Normal 2.0-7.7 [facility] Comment on above: Result Comment: Canc elled via OM: Order cancelled - Patient discharged Performed By: #### L 100.0100, L500.2500 ####[facility] [address] [place], [address] HCT Normal 40-54 [facility] Comment on above: Result Comment: Canc elled via OM: Order cancelled - Patient discharged Performed By: #### L 100.0100, L500.2500 ####[facility] [address] [place], [address] HGB Normal 13.0-16.5 [facility] Comment on above: Result Comment: Canc elled via OM: Order cancelled - Patient discharged Performed By: #### L 100.0100, L500.2500 ####[facility] [address] [place], [address] MCH Normal 27.0-32.0 [facility] Comment on above: Result Comment: Canc elled via OM: Order cancelled - Patient discharged Performed By: #### L 100.0100, L500.2500 ####[facility] [address] [place], [address] MCHC Normal 32-36 [facility] Comment on above: Result Comment: Canc elled via OM: Order cancelled - Patient discharged Performed By: #### L 100.0100, L500.2500 ####[facility] [address] [place], [address] MCV Normal 80-94 [facility] Comment on above: Result Comment: Canc elled via OM: Order cancelled - Patient discharged Performed By: #### L 100.0100, L500.2500 ####[facility] [address] [place], [address] NEUT% Normal 47-70 [facility] Comment on above: Result Comment: Canc elled via OM: Order cancelled - Patient discharged Performed By: #### L 100.0100, L500.2500 ####[facility] [address] [place], [address] PLT Normal 150-450 [facility] Comment on above: Result Comment: Canc elled via OM: Order cancelled - Patient discharged Performed By: #### L 100.0100, L500.2500 ####[facility] [address] [place], [address] RBC Normal 4.6-6.2 [facility] Comment on above: Result Comment: Canc elled via OM: Order cancelled - Patient discharged Performed By: #### L 100.0100, L500.2500 ####[facility] [address] [place], [address] RDW CV Normal 11.6-14.6 [facility] Comment on above: Result Comment: Canc elled via OM: Order cancelled - Patient discharged Performed By: #### L 100.0100, L500.2500 ####[facility] [address] [place], [address] RDW SD Normal 35.1-43.9 [facility] Comment on above: Result Comment: Canc elled via OM: Order cancelled - Patient discharged Performed By: #### L 100.0100, L500.2500 ####[facility] [address] [place], [address] WBC Normal 4.4-11.0 [facility] Comment on above: Result Comment: Canc elled via OM: Order cancelled - Patient discharged Performed By: #### L 100.0100, L500.2500 ####[facility] [address] [place], [address] Basic Metabolic Profile (BMP )on 05-02-2024 BUN Normal - [facility] Comment on above: Result Comment: Canc elled via OM: Order cancelled - Patient discharged Performed By: #### L 500.2500, L100.0100 #### [facility] [address] [place], [address] BUN/CRE Normal - [facility] Comment on above: Result Comment: Canc elled via OM: Order cancelled - Patient discharged Performed By: #### L 500.2500, L100.0100 #### [facility] [address] [place], [address] CA,Total Normal 8.5-10.1 [facility] Comment on above: Result Comment: Canc elled via OM: Order cancelled - Patient discharged Performed By: #### L 500.2500, L100.0100 #### [facility] [address] [place], [address] CL Normal 98-107 [facility] Comment on above: Result Comment: Canc elled via OM: Order cancelled - Patient discharged Performed By: #### L 500.2500, L100.0100 #### [facility] [address] [place], [address] CO2 Normal 21.0-32.0 [facility] Comment on above: Result Comment: Canc elled via OM: Order cancelled - Patient discharged Performed By: #### L 500.2500, L100.0100 #### [facility] [address] [place], [address] CREAT,SERUM Normal 0.70-1.30 [facility] Comment on above: Result Comment: Canc elled via OM: Order cancelled - Patient discharged Performed By: #### L 500.2500, L100.0100 #### [facility] [address] [place], [address] EST GFR Normal >60 [facility] Comment on above: Result Comment: Canc elled via OM: Order cancelled - Patient discharged Performed By: #### L 500.2500, L100.0100 #### [facility] [address] [place], [address] EST GFR - AA Normal >60 [facility] Comment on above: Result Comment: Canc elled via OM: Order cancelled - Patient discharged Performed By: #### L 500.2500, L100.0100 #### [facility] [address] [place], [address] GAP Normal 5-15 [facility] Comment on above: Result Comment: Canc elled via OM: Order cancelled - Patient discharged Performed By: #### L 500.2500, L100.0100 #### [facility] [address] [place], [address] GLU Normal 74-106 [facility] Comment on above: Result Comment: Canc elled via OM: Order cancelled - Patient discharged Performed By: #### L 500.2500, L100.0100 #### [facility] [address] [place], [address] Potassium Normal 3.5-5.1 [facility] Comment on above: Result Comment: Canc elled via OM: Order cancelled - Patient discharged Performed By: #### L 500.2500, L100.0100 #### [facility] [address] [place], [address] Basic Metabolic Profile (BMP) Normal 136-145 [facility] Comment on above: Result Comment: Canc elled via OM: Order cancelled - Patient discharged Performed By: #### L 500.2500, L100.0100 #### [facility] [address] [place], [address] CBC W/Diff, Automatedon 10- Absolute Neut Normal 2.0-7.7 [facility] Comment on above: Result Comment: Canc elled via OM: Order cancelled - Patient discharged Performed By: #### L 500.2500, L100.0100 #### [facility] [address] [place], [address] HCT Normal 40-54 [facility] Comment on above: Result Comment: Canc elled via OM: Order cancelled - Patient discharged Performed By: #### L 500.2500, L100.0100 #### [facility] [address] [place], [address] HGB Normal 13.0-16.5 [facility] Comment on above: Result Comment: Canc elled via OM: Order cancelled - Patient discharged Performed By: #### L 500.2500, L100.0100 #### [facility] [address] [place], [address] MCH Normal 27.0-32.0 [facility] Comment on above: Result Comment: Canc elled via OM: Order cancelled - Patient discharged Performed By: #### L 500.2500, L100.0100 #### [facility] [address] [place], [address] MCHC Normal 32-36 [facility] Comment on above: Result Comment: Canc elled via OM: Order cancelled - Patient discharged Performed By: #### L 500.2500, L100.0100 #### [facility] [address] [place], [address] MCV Normal 80-94 [facility] Comment on above: Result Comment: Canc elled via OM: Order cancelled - Patient discharged Performed By: #### L 500.2500, L100.0100 #### [facility] [address] [place], [address] NEUT% Normal 47-70 [facility] Comment on above: Result Comment: Canc elled via OM: Order cancelled - Patient discharged Performed By: #### L 500.2500, L100.0100 #### [facility] [address] [place], [address] PLT Normal 150-450 [facility] Comment on above: Result Comment: Canc elled via OM: Order cancelled - Patient discharged Performed By: #### L 500.2500, L100.0100 #### [facility] [address] [place], [address] RBC Normal 4.6-6.2 [facility] Comment on above: Result Comment: Canc elled via OM: Order cancelled - Patient discharged Performed By: #### L 500.2500, L100.0100 #### [facility] [address] [place], [address] RDW CV Normal 11.6-14.6 [facility] Comment on above: Result Comment: Canc elled via OM: Order cancelled - Patient discharged Performed By: #### L 500.2500, L100.0100 #### [facility] [address] [place], [address] RDW SD Normal 35.1-43.9 [facility] Comment on above: Result Comment: Canc elled via OM: Order cancelled - Patient discharged Performed By: #### L 500.2500, L100.0100 #### [facility] [address] [place], [address] WBC Normal 4.4-11.0 [facility] Comment on above: Result Comment: Canc elled via OM: Order cancelled - Patient discharged Performed By: #### L 500.2500, L100.0100 #### [facility] [address] [place], [address] Basic Metabolic Profile (BMP )on 04-25-2024 BUN/CRE 17.0 RATIO Normal -20 [facility] Comment on above: Order Comment: 101.1 Performed By: #### L 500.2500 #### [facility] [address] [place], [address] CA,Total 9.7 mg/dL Normal 8.5-10.1 [facility] Comment on above: Order Comment: 101.1 Performed By: #### L 500.2500 #### [facility] [address] [place], [address] Chloride [Moles/Vol] 106 mmol/L Normal 98-107 [facility] Comment on above: Order Comment: 101.1 Performed By: #### L 500.2500 #### [facility] [address] [place], [address] CO2 [Moles/Vol] 27.0 mmol/L Normal 21.0-32.0 [facility] Comment on above: Order Comment: 101.1 Performed By: #### L 500.2500 #### [facility] [address] [place], [address] Creatinine [Mass/Vol] 0.76 mg/dL Normal 0.70-1.30 [facility] Comment on above: Order Comment: 101.1 Result Comment: The validity of the calculated GFR GFRAA in patients over 70 years has not been determined. Clinical correlation is essential. Performed By: #### L 500.2500 #### [facility] [address] [place], [address] EST GFR - AA 125 mL/min Normal >60 [facility] Comment on above: Order Comment: 101.1 Result Comment: Afri can [place]gas[place] GFR Calc Performed By: #### L 500.2500 #### [facility] [address] [place], [address] GAP 5 Normal 5-15 [facility] Comment on above: Order Comment: 101.1 Performed By: #### L 500.2500 #### [facility] [address] [place], [address] GFR/1.73 sq M.predicted among non-blacks MDRD (S/P/Bld) [Vol rate/Area] 103 mL/min/{1.73_m2} Normal >60 [facility] Comment on above: Order Comment: 101.1 Result Comment: Non- GFR Calc Performed By: #### L 500.2500 #### [facility] [address] [place], [address] Glucose [Mass/Vol] 142 mg/dL High 74-106 [facility] Comment on above: Order Comment: 101.1 Result Comment: Fast ing Glucose result greater than or equal to 126 mg/dL suggests DIABETES MELLITUS per A.D.A. criteria. Performed By: #### L 500.2500 #### [facility] [address] [place], [address] Potassium [Moles/Vol] 3.8 mmol/L Normal 3.5-5.1 [facility] Comment on above: Order Comment: 101.1 Result Comment: Mode rate Hemolysis, Result may be falsely increased. Performed By: #### L 500.2500 #### [facility] [address] [place], [address] Sodium [Moles/Vol] 139 mmol/L Normal 136-145 [facility] Comment on above: Order Comment: 101.1 Performed By: #### L 500.2500 #### [facility] [address] [place], [address] Urea nitrogen [Mass/Vol] 13 mg/dL Normal 7-18 [facility] Comment on above: Order Comment: 101.1 Performed By: #### L 500.2500 #### [facility] [address] [place], [address] BUN Normal 7-18 [facility] Comment on above: Result Comment: Canc elled via OM: Order cancelled - Patient discharged Performed By: #### L 500.2500, L100.0100 #### [facility] [address] [place], [address] BUN/CRE Normal 10-20 [facility] Comment on above: Result Comment: Canc elled via OM: Order cancelled - Patient discharged Performed By: #### L 500.2500, L100.0100 #### [facility] [address] [place], [address] CA,Total Normal 8.5-10.1 [facility] Comment on above: Result Comment: Canc elled via OM: Order cancelled - Patient discharged Performed By: #### L 500.2500, L100.0100 #### [facility] [address] [place], [address] CL Normal 98-107 [facility] Comment on above: Result Comment: Canc elled via OM: Order cancelled - Patient discharged Performed By: #### L 500.2500, L100.0100 #### [facility] [address] [place], [address] CO2 Normal 21.0-32.0 [facility] Comment on above: Result Comment: Canc elled via OM: Order cancelled - Patient discharged Performed By: #### L 500.2500, L100.0100 #### [facility] [address] [place], [address] CREAT,SERUM Normal 0.70-1.30 [facility] Comment on above: Result Comment: Canc elled via OM: Order cancelled - Patient discharged Performed By: #### L 500.2500, L100.0100 #### [facility] [address] [place], [address] EST GFR Normal >60 [facility] Comment on above: Result Comment: Canc elled via OM: Order cancelled - Patient discharged Performed By: #### L 500.2500, L100.0100 #### [facility] [address] [place], [address] EST GFR - AA Normal >60 [facility] Comment on above: Result Comment: Canc elled via OM: Order cancelled - Patient discharged Performed By: #### L 500.2500, L100.0100 #### [facility] [address] [place], [address] GAP Normal 5-15 [facility] Comment on above: Result Comment: Canc elled via OM: Order cancelled - Patient discharged Performed By: #### L 500.2500, L100.0100 #### [facility] [address] [place], [address] GLU Normal 74-106 [facility] Comment on above: Result Comment: Canc elled via OM: Order cancelled - Patient discharged Performed By: #### L 500.2500, L100.0100 #### [facility] [address] [place], [address] Potassium Normal 3.5-5.1 [facility] Comment on above: Result Comment: Canc elled via OM: Order cancelled - Patient discharged Performed By: #### L 500.2500, L100.0100 #### [facility] [address] [place], [address] Basic Metabolic Profile (BMP) Normal 136-145 [facility] Comment on above: Result Comment: Canc elled via OM: Order cancelled - Patient discharged Performed By: #### L 500.2500, L100.0100 #### [facility] [address] [place], [address] CBC W/Diff, Automatedon 10-1 Absolute Neut Normal 2.0-7.7 [facility] Comment on above: Result Comment: Canc elled via OM: Order cancelled - Patient discharged Performed By: #### L 500.2500, L100.0100 #### [facility] [address] [place], [address] HCT Normal 40-54 [facility] Comment on above: Result Comment: Canc elled via OM: Order cancelled - Patient discharged Performed By: #### L 500.2500, L100.0100 #### [facility] [address] [place], [address] HGB Normal 13.0-16.5 [facility] Comment on above: Result Comment: Canc elled via OM: Order cancelled - Patient discharged Performed By: #### L 500.2500, L100.0100 #### [facility] [address] [place], [address] MCH Normal 27.0-32.0 [facility] Comment on above: Result Comment: Canc elled via OM: Order cancelled - Patient discharged Performed By: #### L 500.2500, L100.0100 #### [facility] [address] [place], [address] MCHC Normal 32-36 [facility] Comment on above: Result Comment: Canc elled via OM: Order cancelled - Patient discharged Performed By: #### L 500.2500, L100.0100 #### [facility] [address] [place], [address] MCV Normal 80-94 [facility] Comment on above: Result Comment: Canc elled via OM: Order cancelled - Patient discharged Performed By: #### L 500.2500, L100.0100 #### [facility] [address] [place], [address] NEUT% Normal 47-70 [facility] Comment on above: Result Comment: Canc elled via OM: Order cancelled - Patient discharged Performed By: #### L 500.2500, L100.0100 #### [facility] [address] [place], [address] PLT Normal 150-450 [facility] Comment on above: Result Comment: Canc elled via OM: Order cancelled - Patient discharged Performed By: #### L 500.2500, L100.0100 #### [facility] [address] [place], [address] RBC Normal 4.6-6.2 [facility] Comment on above: Result Comment: Canc elled via OM: Order cancelled - Patient discharged Performed By: #### L 500.2500, L100.0100 #### [facility] [address] [place], [address] RDW CV Normal 11.6-14.6 [facility] Comment on above: Result Comment: Canc elled via OM: Order cancelled - Patient discharged Performed By: #### L 500.2500, L100.0100 #### [facility] [address] [place], [address] RDW SD Normal 35.1-43.9 [facility] Comment on above: Result Comment: Canc elled via OM: Order cancelled - Patient discharged Performed By: #### L 500.2500, L100.0100 #### [facility] [address] [place], [address] WBC Normal 4.4-11.0 [facility] Comment on above: Result Comment: Canc elled via OM: Order cancelled - Patient discharged Performed By: #### L 500.2500, L100.0100 #### [facility] [address] [place], [address] CBC W Auto Differential pane l (Bld)on 02-13-2023 Basophils (Bld) [#/Vol] 0.04 10*3/uL <0.11 k/uL [facility] Basophils/100 WBC (Bld) 0.9 % [facility] Differential cell count method Nom (Bld) Auto [facility] Eosinophils (Bld) [#/Vol] 0.14 10*3/uL <0.46 k/uL [facility] Eosinophils/100 WBC (Bld) 3.3 % [facility] Erythrocyte distribution width (RBC) [Ratio] 12.1 % 11.5 - 15.0 % [facility] Hematocrit (Bld) [Volume fraction] 36.7 % Low 39.0 - 51.0 % [facility] Hemoglobin (Bld) [Mass/Vol] 12.8 g/dL Low 13.0 - 17.0 g/dL [facility] Immature granulocytes (Bld) [#/Vol] <0.10 k/uL [facility] Immature granulocytes/100 WBC (Bld) 0.2 % [facility] Lymphocytes (Bld) [#/Vol] 1.23 10*3/uL 1.00 - 4.00 k/uL [facility] Lymphocytes/100 WBC (Bld) 28.7 % [facility] MCH (RBC) [Entitic mass] 33.6 pg 26.0 - 34.0 pg [facility] MCHC (RBC) [Mass/Vol] 34.9 g/dL 30.5 - 36.0 g/dL [facility] MCV (RBC) [Entitic vol] 96.3 fL 80.0 - 100.0 fL [facility] Monocytes (Bld) [#/Vol] 0.34 10*3/uL <0.87 k/uL [facility] Monocytes/100 WBC (Bld) 7.9 % [facility] Neutrophils (Bld) [#/Vol] 2.52 10*3/uL 1.45 - 7.50 k/uL [facility] Neutrophils/100 WBC (Bld) 59.0 % [facility] Nucleated RBC (Bld) [#/Vol] <0.01 k/uL [facility] Nucleated RBC/100 WBC (Bld) [Ratio] 0.0 /100 WBC [facility] Platelet mean volume (Bld) [Entitic vol] 9.3 fL 9.0 - 12.7 fL [facility] Platelets (Bld) [#/Vol] 226 10*3/uL 150 - 400 k/uL [facility] RBC (Bld) [#/Vol] 3.81 10*6/uL Low 4.20 - 6.0 0 m/uL [facility] WBC (Bld) [#/Vol] 4.28 10*3/uL 3.70 - 11.00 k/uL [facility] No Panel InformationOrdered By: SWATI Foley on 09-28-2022 Prostate Specific Antigen Total < 0.01 ng/mL 0.0-4.0 [facility] Comment on above: This test was perfor med using the TPSA assay method for theFieldbook chemistry system. Values obtained with differentassay methods cannot be used interchangably.When changing PSA assays in the course of monitoring apatient, additional sequential testing should be carriedout to confirm baseline values. Vital Signs Date Time Vital Sign Value Performing Clinician Facility 05-21-2025 23:11-0500 SaO2% (BldA) [Mass fraction] 92 % MARISOL RIBEIRO [facility] Comment on above: Order Comment: Specimen Type: ARTERIAL B LOOD SPECIMENOrdering Facility: [facility] Address: [address] [place] [address] Performed By: #### A LL ####[facility] LABCLIA [id number] [place] [address] [place] 04-09-2025 13:36-0400 Body height 165.1 cm Tegan WEAVER Work Phone: [facility] 04-09-2025 13:36-0400 Body mass index (BMI) [Ratio] 25.4 kg/m2 Tegan WEAVER Work Phone: [facility] 04-09-2025 13:36-0400 Body weight 69.39 kg Tegan Podlogar EMPLOYEE SERVICE OFFICER-C Work Phone: [facility] 04-09-2025 13:36-0400 Diastolic blood pressure 61 mm[Hg] Tegan Podlogar EMPLOYEE SERVICE OFFICER-C Work Phone: [facility] 04-09-2025 13:36-0400 Heart rate 63 /min Tegan Podlogar EMPLOYEE SERVICE OFFICER-C Work Phone: [facility] 04-09-2025 13:36-0400 Respiratory rate 16 /min Tegan Podlogar EMPLOYEE SERVICE OFFICER-C Work Phone: [facility] 04-09-2025 13:36-0400 Systolic blood pressure 106 mm[Hg] Tegan Podlogar EMPLOYEE SERVICE OFFICER-C Work Phone: [facility] 02-07-2025 11:27-0400 Body mass index (BMI) [Ratio] 26.46 kg/m2 Marisol Ribeiro MD Work Phone: [facility] 02-07-2025 11:27-0400 Body weight 72.12 kg Marisol Ribeiro MD Work Phone: [facility] 02-07-2025 11:27-0400 Diastolic blood pressure 62 mm[Hg] Marisol Ribeiro MD Work Phone: [facility] 02-07-2025 11:27-0400 Heart rate 78 /min Marisol Ribeiro MD Work Phone: [facility] 02-07-2025 11:27-0400 Respiratory rate 18 /min Marisol Ribeiro MD Work Phone: [facility] 02-07-2025 11:27-0400 SaO2% (BldA) [Mass fraction] 96 % Marisol Ribeiro MD Work Phone: [facility] 02-07-2025 11:27-0400 Systolic blood pressure 122 mm[Hg] Marisol Ribeiro MD Work Phone: [facility] 07-30-2024 10:53-0500 Body mass index (BMI) [Ratio] 24.86 kg/m2 Marisol Ribeiro MD Work Phone: [facility] 07-30-2024 10:53-0500 Body weight 67.77 kg Marisol Ribeiro MD Work Phone: [facility] 07-30-2024 10:53-0500 Diastolic blood pressure 66 mm[Hg] Marisol Ribeiro MD Work Phone: [facility] 07-30-2024 10:53-0500 Heart rate 87 /min Marisol Ribeiro MD Work Phone: [facility] 07-30-2024 10:53-0500 Respiratory rate 18 /min Marisol Ribeiro MD Work Phone: [facility] 07-30-2024 10:53-0500 SaO2% (BldA) [Mass fraction] 99 % Marisol Ribeiro MD Work Phone: [facility] 07-30-2024 10:53-0500 Systolic blood pressure 130 mm[Hg] Marisol Ribeiro MD Work Phone: [facility] 06-30-2024 12:24-0500 Body mass index (BMI) [Ratio] 24.4 kg/m2 Tegan Podlogar COMPONENT ASSEMBLER[employer] Work Phone: [facility] 06-30-2024 12:24-0500 Body temperature 97.39 [degF] Tegan Podlogar COMPONENT ASSEMBLER[employer]IP SAW[employer]ER Work Phone: [facility] 06-30-2024 12:24-0500 Body weight 66.5 kg Tegan Podlogar COMPONENT ASSEMBLER[employer]IP SAWYER Work Phone: [facility] 06-30-2024 12:24-0500 Diastolic blood pressure 72 mm[Hg] Tegan Podlogar COMPONENT ASSEMBLER[employer]IP SAWYER Work Phone: [facility] 06-30-2024 12:24-0500 Heart rate 75 /min Tegan Podlogar COMPONENT ASSEMBLER[employer]IP SAWYER Work Phone: [facility] 06-30-2024 12:24-0500 Respiratory rate 18 /min Tegan Podlogar COMPONENT ASSEMBLER.RIP SAWYER Work Phone: [facility] [facility] 06-30-2024 12:24-0500 SaO2% (BldA) [Mass fraction] 97 % Tegan Podlogar COMPONENT ASSEMBLER.RIP SAWYER Work Phone: [facility] 06-30-2024 12:24-0500 Systolic blood pressure 120 mm[Hg] Tegan Podlogar COMPONENT ASSEMBLER.RIP SAWYER Work Phone: [facility] 11-14-2023 15:26-0400 Body mass index (BMI) [Ratio] 26.66 kg/m2 Tegan Podlogar COMPONENT ASSEMBLER.RIP SAWYER Work Phone: [facility] 11-14-2023 15:26-0400 Body weight 72.67 kg Tegan Podlogar COMPONENT ASSEMBLER.RIP SAWYER Work Phone: [facility] 11-14-2023 15:26-0400 Diastolic blood pressure 74 mm[Hg] Tegan Podlogar COMPONENT ASSEMBLER.RIP SAWYER Work Phone: [facility] 11-14-2023 15:26-0400 Heart rate 82 /min Tegan Podlogar COMPONENT ASSEMBLER.RIP SAWYER Work Phone: [facility] 11-14-2023 15:26-0400 Respiratory rate 18 /min Tegan Podlogar COMPONENT ASSEMBLER.RIP SAWYER Work Phone: [facility] 11-14-2023 15:26-0400 SaO2% (BldA) [Mass fraction] 96 % Tegan Podlogar COMPONENT ASSEMBLER.RIP SAWYER Work Phone: [facility] 11-14-2023 15:26-0400 Systolic blood pressure 122 mm[Hg] Tegan Podlogar COMPONENT ASSEMBLER.RIP SAWYER Work Phone: [facility] 05-16-2023 15:02-0400 Body weight 70.22 kg Tegan Podlogar COMPONENT ASSEMBLER.RIP SAWYER Work Phone: [facility] 05-16-2023 15:02-0400 Diastolic blood pressure 66 mm[Hg] Tegan Podlogar COMPONENT ASSEMBLER.RIP SAWYER Work Phone: [facility] 05-16-2023 15:02-0400 Heart rate 79 /min Tegan Podlogar COMPONENT ASSEMBLER.RIP SAWYER Work Phone: [facility] 05-16-2023 15:02-0400 Respiratory rate 18 /min Tegan Podlogar COMPONENT ASSEMBLER.RIP SAWYER Work Phone: [facility] 05-16-2023 15:02-0400 SaO2% (BldA) [Mass fraction] 98 % Tegan Podlogar COMPONENT ASSEMBLER.RIP SAWYER Work Phone: [facility] 05-16-2023 15:02-0400 Systolic blood pressure 112 mm[Hg] Tegan Podlogar COMPONENT ASSEMBLER.RIP SAWYER Work Phone: [facility] 02-13-2023 13:14-0400 Body height 165.1 cm Tegan Podlogar COMPONENT ASSEMBLER.RIP SAWYER Work Phone: [facility] 02-13-2023 13:14-0400 Body weight 72.48 kg Tegan Podlogar COMPONENT ASSEMBLER.RIP SAWYER Work Phone: [facility] 02-13-2023 13:14-0400 Diastolic blood pressure 64 mm[Hg] Tegan Podlogar COMPONENT ASSEMBLER.RIP SAWYER Work Phone: [facility] 02-13-2023 13:14-0400 Heart rate 60 /min Tegan Podlogar COMPONENT ASSEMBLER.RIP SAWYER Work Phone: [facility] 02-13-2023 13:14-0400 Respiratory rate 16 /min Tegan Podlogar COMPONENT ASSEMBLER.RIP SAWYER Work Phone: [facility] 02-13-2023 13:14-0400 Systolic blood pressure 110 mm[Hg] Tegan Podlogar COMPONENT ASSEMBLER.RIP SAWYER Work Phone: [facility] 01-30-2023 13:21-0400 Body mass index (BMI) [Ratio] 25.2 kg/m2 Dr. Jude Ribeiro Work Phone: [facility] 01-30-2023 13:21-0400 Body weight 70.[address] Jude Ribeiro Work Phone: [facility] 01-30-2023 13:09-0400 Body height 167.[address] Jude Ribeiro Work Phone: [facility] 01-30-2023 13:09-0400 Body temperature 97.8 [degF] Dr. Jude Ribeiro Work Phone: [facility] 01-30-2023 13:09-0400 Diastolic blood pressure 76 mm[Hg] Dr. Jude Ribeiro Work Phone: [facility] 01-30-2023 13:09-0400 Heart rate 80 /min Dr. Jude Ribeiro Work Phone: [facility] 01-30-2023 13:09-0400 Respiratory rate 14 /min Dr. Jude Ribeiro Work Phone: [facility] 01-30-2023 13:09-0400 SaO2% (BldA) [Mass fraction] 98 % Dr. Jude Ribeiro Work Phone: [facility] 01-30-2023 13:09-0400 Systolic blood pressure 125 mm[Hg] Dr. Jude Ribeiro Work Phone: [facility] 11-13-2022 14:00-0400 Body weight 72.39 kg Tegan Podlogar COMPONENT ASSEMBLER.RIP SAWYER Work Phone: [facility] 11-13-2022 14:00-0400 Diastolic blood pressure 68 mm[Hg] Tegan Podlogar COMPONENT ASSEMBLER.RIP SAWYER Work Phone: [facility] 11-13-2022 14:00-0400 Heart rate 68 /min Tegan Podlogar COMPONENT ASSEMBLER.RIP SAWYER Work Phone: [facility] 11-13-2022 14:00-0400 Respiratory rate 18 /min Tegan Podlogar COMPONENT ASSEMBLER.RIP SAWYER Work Phone: [facility] 11-13-2022 14:00-0400 SaO2% (BldA) [Mass fraction] 99 % Tegan Podlogar COMPONENT ASSEMBLER.RIP SAWYER Work Phone: [facility] 11-13-2022 14:00-0400 Systolic blood pressure 122 mm[Hg] Tegan Podlogar COMPONENT ASSEMBLER.RIP SAWYER Work Phone: [facility] 10-30-2022 14:37-0400 Body mass index (BMI) [Ratio] 26.4 kg/m2 Dr. Jude Ribeiro Work Phone: [facility] 10-30-2022 14:37-0400 Body weight 72.[address] Jude Ribeiro Work Phone: [facility] 10-30-2022 14:37-0400 Diastolic blood pressure 72 mm[Hg] Dr. Jude Ribeiro Work Phone: [facility] 10-30-2022 14:37-0400 Heart rate 78 /min Dr. Jude Ribeiro Work Phone: [facility] 10-30-2022 14:37-0400 Respiratory rate 18 /min Dr. Jude Ribeiro Work Phone: [facility] 10-30-2022 14:37-0400 SaO2% (BldA) [Mass fraction] 99 % Dr. Jude Ribeiro Work Phone: [facility] 10-30-2022 14:37-0400 Systolic blood pressure 130 mm[Hg] Dr. Jude Ribeiro Work Phone: [facility] 09-05-2022 13:59-0500 Body weight 74.75 kg Tegan Podlogar COMPONENT ASSEMBLER.RIP SAWYER Work Phone: [facility] 09-05-2022 13:59-0500 Diastolic blood pressure 72 mm[Hg] Tegan Podlogar COMPONENT ASSEMBLER.RIP SAWYER Work Phone: [facility] 09-05-2022 13:59-0500 Heart rate 80 /min Tegan Podlogar COMPONENT ASSEMBLER.RIP SAWYER Work Phone: [facility] 09-05-2022 13:59-0500 Respiratory rate 16 /min Tegan Podlogar COMPONENT ASSEMBLER.RIP SAWYER Work Phone: [facility] 09-05-2022 13:59-0500 SaO2% (BldA) [Mass fraction] 100 % Tegan Herreralogangela COMPONENT ASSEMBLER.RIP SAWYER Work Phone: [facility] 09-05-2022 13:59-0500 Systolic blood pressure 120 mm[Hg] Tegan Wing COMPONENT ASSEMBLER.RIP SAWYER Work Phone: [facility] 09-02-2022 14:35-0500 Body temperature 97.8 [degF] Dr. Jude Ribeiro Work Phone: [facility] 09-02-2022 14:35-0500 Diastolic blood pressure 78 mm[Hg] Dr. Jude Ribeiro Work Phone: [facility] 09-02-2022 14:35-0500 Heart rate 78 /min Dr. Jude Ribeiro Work Phone: [facility] 09-02-2022 14:35-0500 Respiratory rate 16 /min Dr. Jude Ribeiro Work Phone: [facility] 09-02-2022 14:35-0500 SaO2% (BldA) [Mass fraction] 99 % Dr. Jude Ribeiro Work Phone: [facility] 09-02-2022 14:35-0500 Systolic blood pressure 126 mm[Hg] Dr. Jude Ribeiro Work Phone: [facility] 09-02-2022 11:41-0500 Body height 165.[address] Jude Ribeiro Work Phone: [facility] 09-02-2022 11:41-0500 Body mass index (BMI) [Ratio] 29.1 kg/m2 Dr. Jude Ribeiro Work Phone: [facility] 09-02-2022 11:41-0500 Body weight 79.[address] Jude Ribeiro Work Phone: [facility] 08-22-2022 12:56-0500 Body weight 73.85 kg Tegan Podlogar COMPONENT ASSEMBLER.RIP SAWYER Work Phone: [facility] 08-22-2022 12:56-0500 Diastolic blood pressure 78 mm[Hg] Tegan Podlogar COMPONENT ASSEMBLER.RIP SAWYER Work Phone: [facility] 08-22-2022 12:56-0500 Heart rate 86 /min Tegan Podlogar COMPONENT ASSEMBLER.RIP SAWYER Work Phone: [facility] 08-22-2022 12:56-0500 Respiratory rate 18 /min Tegan Podlogar COMPONENT ASSEMBLER.RIP SAWYER Work Phone: [facility] 08-22-2022 12:56-0500 SaO2% (BldA) [Mass fraction] 98 % Tegan Podlogar COMPONENT ASSEMBLER.RIP SAWYER Work Phone: [facility] 08-22-2022 12:56-0500 Systolic blood pressure 132 mm[Hg] Tegan Podlogar COMPONENT ASSEMBLER.RIP SAWYER Work Phone: [facility] 05-11-2022 10:39-0400 Body mass index (BMI) [Ratio] 27.6 kg/m2 Dr. Jude Ribeiro Work Phone: [facility] 05-11-2022 10:39-0400 Body weight 75.[address] Jude Ribeiro Work Phone: [facility] 05-11-2022 10:39-0400 Diastolic blood pressure 85 mm[Hg] Dr. Jude Ribeiro Work Phone: [facility] 05-11-2022 10:39-0400 Heart rate 82 /min Dr. Jude Ribeiro Work Phone: [facility] 05-11-2022 10:39-0400 Respiratory rate 16 /min Dr. Jude Ribeiro Work Phone: [facility] 05-11-2022 10:39-0400 SaO2% (BldA) [Mass fraction] 99 % Dr. Jude Ribeiro Work Phone: [phone] [place] [address] 05-11-2022 10:39-0400 Systolic blood pressure 131 mm[Hg] Dr. Jude Ribeiro Work Phone: [facility] 04-21-2022 13:06-0400 Body weight 75.03 kg Tegan Podlogar COMPONENT ASSEMBLER.RIP SAWYER Work Phone: [facility] 04-21-2022 13:06-0400 Diastolic blood pressure 80 mm[Hg] Tegan Podlogar COMPONENT ASSEMBLER.RIP SAWYER Work Phone: [facility] 04-21-2022 13:06-0400 Heart rate 80 /min Tegan Podlogar COMPONENT ASSEMBLER.RIP SAWYER Work Phone: [facility] 04-21-2022 13:06-0400 Respiratory rate 16 /min Tegan Podlogar COMPONENT ASSEMBLER.RIP SAWYER Work Phone: [facility] 04-21-2022 13:06-0400 SaO2% (BldA) [Mass fraction] 97 % Tegan Podlogar COMPONENT ASSEMBLER.RIP SAWYER Work Phone: [facility] 04-21-2022 13:06-0400 Systolic blood pressure 128 mm[Hg] Tegan Podlogar COMPONENT ASSEMBLER.RIP SAWYER Work Phone: [facility] 10-18-2021 13:33-0400 Body weight 75.12 kg Marisol Ribeiro MD Work Phone: [facility] 10-18-2021 13:33-0400 Diastolic blood pressure 64 mm[Hg] Marisol Ribeiro MD Work Phone: [facility] 10-18-2021 13:33-0400 Heart rate 63 /min Marisol Ribeiro MD Work Phone: [facility] 10-18-2021 13:33-0400 Respiratory rate 16 /min Marisol Ribeiro MD Work Phone: [facility] 10-18-2021 13:33-0400 SaO2% (BldA) [Mass fraction] 97 % Marisol Ribeiro MD Work Phone: [facility] 10-18-2021 13:33-0400 Systolic blood pressure 104 mm[Hg] Marisol Ribeiro MD Work Phone: [facility] Encounters Encounter Date Encounter Type Care Provider Facility Start: 05-24-2025 Evaluation and manag ement of inpatient MARILY LEONE Facility:[facility] Start: 05-21-2025 End: 05-24-2025 ambulatory MARISOL RIBEIRO Facility:[facility] Start: 05-20-2025 End: 05-20-2025 ambulatory RUTHY ALVARADOT Facility:[facility] Start: 05-19-2025 End: 05-19-2025 Emergency department patient visit MARISOL RIBEIRO Facility:[facility] Start: 04-15-2025 End: 04-15-2025 ambulatory Tegan Podlogar EMPLOYEE SERVICE OFFICER-C Work Phone: -[facility] Start: 04-15-2025 End: 04-15-[address] Alcon Grajeda MD -[facility] Work Phone: Start: 04-09-2025 End: 04-09-[address] Alcon Grajeda MD -[facility] Work Phone: Start: 04-09-2025 End: 04-09-2025 ambulatory Tegan Podlogar EMPLOYEE SERVICE OFFICER-C Work Phone: [facility] Start: 02-24-2025 End: 02-24-2025 ambulatory Tegan Podlogar EMPLOYEE SERVICE OFFICER-C Work Phone: [facility] Start: 02-24-2025 End: 02-24-2025 Patient encounter procedure Jamee Lamar -[facility] Work Phone: Start: 02-14-2025 End: 02-14-2025 ambulatory MARISOL RIBEIRO Facility:[facility] Start: 02-07-2025 End: 02-07-2025 Patient encounter procedure Marisol Ribeiro MD Work Phone: [facility] Comment on above: Controlled type 2 di abetes mellitus without complication, without long-term current use of insulin (HCC) (Primary Dx); Frequency of urination and polyuria; Onychomycosis; Primary hypertension; ASHD (arteriosclerotic heart disease); Sick sinus syndrome (HCC); Pacemaker; Prostate cancer (HCC); Diarrhea, unspecified type; Chronic bilateral low back pain with bilateral sciatica Start: 02-07-2025 End: 02-07-2025 ambulatory MARISOL RIBEIRO Facility:[facility] Start: 02-04-2025 End: 02-04-2025 Telephone encounter Marisol Ribeiro MD Work Phone: [facility] Comment on above: Patient Call Start: 01-14-2025 End: 01-14-2025 ambulatory Tegan Wing EMPLOYEE SERVICE OFFICER-C Work Phone: [facility] Start: 01-14-2025 End: 01-14-[address] Alocn Grajeda MD [facility] Work Phone: Start: 10-16-2024 End: 10-16-2024 ambulatory Alcon Grajeda Facility:[facility] Start: 10-16-2024 End: 10-16-[address] Alcon Grajeda MD [facility] Work Phone: Start: 09-24-2024 End: 09-24-2024 ambulatory Tegan Wing EMPLOYEE SERVICE OFFICER Facility:[facility] Start: 08-26-2024 End: 08-26-2024 Refill Marisol Ribeiro MD Work Phone: [facility] Comment on above: Refill Request Start: 08-01-2024 End: 08-04-2024 Telephone encounter Tegan Wing APRN.CNP Work Phone: [facility] Comment on above: Results Start: 07-30-2024 End: 07-30-2024 ambulatory MARISOL RIBEIRO Facility:[facility] Start: 07-30-2024 End: 07-30-2024 Patient encounter procedure Marisol Ribeiro MD Work Phone: [facility] Comment on above: Chronic bilateral lo w back pain with bilateral sciatica (Primary Dx); Primary hypertension; Anemia, unspecified type Start: 07-17-2024 End: 07-17-2024 ambulatory Tegan Wing EMPLOYEE SERVICE OFFICER Facility:[facility] Start: 07-01-2024 End: 07-01-2024 Telephone encounter Tegan Wing APRN.RIP SAWYER Work Phone: [facility] Comment on above: Results; Orders Start: 06-30-2024 End: 06-30-2024 Telephone encounter Tegan Wing APRN.RIP SAWYER Work Phone: [facility] Comment on above: Patient Update; Romana ent Question Start: 06-30-2024 End: 06-30-2024 ambulatory MARISOL RIBEIRO Facility:[facility] Start: 06-30-2024 End: 06-30-2024 Patient encounter procedure Tegan Wing APRN.RIP SAWYER Work Phone: [facility] Comment on above: Hospital discharge f ollow-up (Primary Dx); Controlled type 2 diabetes mellitus without complication, without long-term current use of insulin (HCC); Encounter for immunization; Candidal intertrigo; Weight loss Start: 06-30-2024 End: 06-30-2024 ambulatory MARISOL RIBEIRO Facility:[facility] Start: 04-25-2024 End: 04-25-2024 ambulatory Tegan Wing EMPLOYEE SERVICE OFFICER Facility:[facility] Start: 11-16-2023 Telephone encounter Tegan read APRN.RIP SAWYER Work Phone: [facility] Comment on above: Results Start: 11-14-2023 End: 11-14-2023 Patient encounter procedure Tegan Herreralogangela THURSTON.RIP SAWYER [facility] Comment on above: Controlled type 2 di abetes mellitus without complication, without long-term current use of insulin (HCC) (Primary Dx); Sick sinus syndrome (HCC); Prostate cancer (HCC); ASHD (arteriosclerotic heart disease); Pacemaker; Statin declined; Mixed hyperlipidemia; Depression screening Start: 10-24-2023 Refill Marisol Ribeiro MD Work Phone: [facility] Comment on above: Refill Request Start: 10-16-2023 ambulatory Carol Marusa MA [facility] Comment on above: Population Health Na vigation Outreach ([employer] care gaps) Start: 05-17-2023 Telephone encounter Tegan read APRN.RIP SAWYER Work Phone: [facility] Comment on above: Results Start: 05-16-2023 End: 05-16-2023 Patient encounter procedure Tegan Wing APRN.RIP SAWYER Work Phone: [facility] Comment on above: Controlled type 2 di abetes mellitus without complication, without long-term current use of insulin (HCC) (Primary Dx); Encounter for immunization; ASHD (arteriosclerotic heart disease); Prostate cancer (HCC); Pacemaker; Sick sinus syndrome (HCC); Fall, initial encounter Start: 02-14-2023 Telephone encounter Jude Ribeiro MD Work Phone: [facility] Comment on above: Results Start: 02-13-2023 End: 02-13-2023 Patient encounter procedure Tegan Wing APRN.RIP SAWYER Work Phone: [facility] Comment on above: Controlled type 2 di abetes mellitus without complication, without long-term current use of insulin (HCC) (Primary Dx); Prostate cancer (HCC); Mixed hyperlipidemia; ASHD (arteriosclerotic heart disease); Sick sinus syndrome (HCC); Pacemaker Start: 01-30-2023 End: 01-30-2023 Emergency department patient visit Dr. Jude Ribeiro Work Phone: [facility] Work Phone: Start: 01-10-2023 End: 01-10-[address] Jude Ribeiro Work Phone: [facility] Work Phone: Start: 12-14-2022 Refill Marisol Ribeiro MD Work Phone: [facility] Comment on above: Refill Request Start: 11-15-2022 Telephone encounter Tegan read APRN.RIP SAWYER Work Phone: [facility] Comment on above: Results Start: 11-13-2022 End: 11-13-2022 Patient encounter procedure Tegan Wing APRN.RIP SAWYER Work Phone: [facility] Comment on above: Controlled type 2 di abetes mellitus without complication, without long-term current use of insulin (HCC) (Primary Dx); Mixed hyperlipidemia; SSS (sick sinus syndrome) ([facility]); ASHD (arteriosclerotic heart disease); Pacemaker Start: 11-08-2022 Refill Marisol Ribeiro MD Work Phone: [facility] Comment on above: Refill Request Start: 10-30-2022 End: 10-30-[address] Jude Ribeiro Work Phone: [facility] Work Phone: Start: 09-28-2022 End: 09-28-[address] Jude Ribeiro Work Phone: [facility] Work Phone: Start: 09-28-2022 End: 09-28-[address] Jude Ribeiro Work Phone: [facility] Start: 09-27-2022 End: 09-27-[address] Jude Ribeiro Work Phone: [facility] Start: 09-26-2022 Telephone encounter Jude Ribeiro MD Work Phone: [facility] Comment on above: Patient Update Start: 09-05-2022 End: 09-05-2022 Patient encounter procedure Tegan Wing APRN.RIP SAWYER Work Phone: [facility] Comment on above: Left hip pain (Prima ry Dx) Start: 09-02-2022 End: 09-02-2022 Emergency department patient visit Dr. Jude Ribeiro Work Phone: [facility] Start: 08-23-2022 Refill Tegan Wing APRN.RIP SAWYER Work Phone: [facility] Start: 08-22-2022 End: 08-22-2022 Patient encounter procedure Tegan Wing APRN.RIP SAWYER Work Phone: [facility] Comment on above: Controlled type 2 di abetes mellitus without complication, without long-term current use of insulin (HCC) (Primary Dx); ASHD (arteriosclerotic heart disease); Pacemaker; Prostate cancer (HCC) Start: 07-28-2022 Telephone encounter Tegan read APRN.RIP SAWYER Work Phone: [facility] Comment on above: Results; Orders Start: 06-22-2022 End: 06-22-[address] Jude Ribeiro Work Phone: [facility] Start: 05-22-2022 Non-patient / Non-visit Dr. Denita Ribeiro Work Phone: [facility] Start: 05-22-2022 End: 05-22-[address] Jude Ribeiro Work Phone: [facility] Start: 05-11-2022 End: 05-11-[address] Jude Ribeiro Work Phone: [facility] Start: 04-21-2022 End: 04-21-2022 Patient encounter procedure Tegan Wing APRN.RIP SAWYER Work Phone: [facility] Comment on above: Controlled type 2 di abetes mellitus without complication, without long-term current use of insulin (HCC) (Primary Dx); Itchy skin; Encounter for immunization; Mixed hyperlipidemia; ASHD (arteriosclerotic heart disease); Pacemaker; Prostate cancer (HCC) Start: 10-18-2021 End: 10-18-2021 Patient encounter procedure Marisol Ribeiro MD Work Phone: [facility] Comment on above: Controlled type 2 di abetes mellitus without complication, without long-term current use of insulin (HCC) (Primary Dx); Prostate cancer (HCC); ASHD (arteriosclerotic heart disease); SSS (sick sinus syndrome) (HCC); Pacemaker; Primary hypertension; Mixed hyperlipidemia Start: 05-15-2012 End: 04-10-2017 Patient encounter procedure Tegan Podlogangela COMPONENT ASSEMBLER.ARETHA Work Phone: [facility] Procedures Date Procedure Procedure Detail Performing Clinician Start: 06-30-2024 [facility] COVI D-19 VACCINE AGE 12+ YR (COMIRNATY) Tegan Podlogar COMPONENT ASSEMBLER.ARETHA Work Phone: Start: 11-14-2023 Adult depression scr eening assessment Tegan Podlogar COMPONENT ASSEMBLER.ARETHA Work Phone: Start: 05-16-2023 INFLUENZA VACCINE, P RSV FREE, AGE 65+ YR, HIGH DOSE, QUADRIVALENT (FLUZONE HIGH-DOSE) Tegan Podlogar COMPONENT ASSEMBLER.ARETHA Work Phone: Start: 01-30-2023 Plain x-ray of hand Dr. Jude Ribeiro Work Phone: Start: 09-02-2022 Plain x-ray of pelvi s and lower extremity Dr. Jude Ribeiro Work Phone: Start: 05-22-2022 Cardiovascular stres s test using pharmacologic stress agent Dr. Jude Ribeiro Work Phone: Start: 04-21-2022 INFLUENZA SEASONAL QUADRIVALENT HIGH DOSE AGE 65+ Tegan Podlogar COMPONENT ASSEMBLER.ARETHA Work Phone: Plan of Treatment Date Care Activity Detail Author Start: 03-13-2028 Urine microalbumin profile [facility] Start: 02-07-2026 Diabetic foot examination Diabetic Foot Exam [facility] Start: 02-07-2026 RSV Vaccine (1 - 1-d ose 75+ series) RSV Vaccine (1 - 1-dose 75+ series) [facility] Comment on above: Postponed from 10/18 (Declined at this time) Start: 02-07-2026 Shingrix Vaccine (1 of 2) Shingrix Vaccine (1 of 2) [facility] Comment on above: Postponed from 10/18 (Declined at this time) Start: 12-04-2025 Glaucoma screening Dilated Retinal E xam [facility] Start: 06-30-2025 Hepatitis B screening Urine Al bumin:Creatinine Ratio [facility] Start: 03-21-2025 End: 06-20-2025 Hepatic function 2000 panel - Serum or Plasma HEPATIC FUNCTION PNL Lab Routine Onychomycosis Expected: 03/21/2025, Expires: 06/20/2025 [facility] Comment on above: Expected: 03/21/2025 , Expires: 06/20/2025 Start: 03-16-2025 Influenza vaccination Influenza Vacc ine (#1) [facility] Start: 02-07-2025 End: 05-09-2025 Bacteria identified in Urine by Culture BACTERIAL CULTURE, URINE Microbiology Routine Frequency of urination and polyuria Expected: 02/07/2025, Expires: 05/09/2025 [facility] Comment on above: Expected: 02/07/2025 , Expires: 05/09/2025 Start: 02-07-2025 End: 05-09-2025 CBC W Auto Differential panel - Blood COMPLETE BLOOD COUNT AND DIFFERENTIAL Lab Routine Controlled type 2 diabetes mellitus without complication, without long-term current use of insulin (HCC) Expected: 02/07/2025, Expires: 05/09/2025 [facility] Work Phone: Comment on above: Expected: 02/07/2025 , Expires: 05/09/2025 Start: 02-07-2025 End: 05-09-2025 Comprehensive metabolic 2000 panel - Serum or Plasma COMPREHENSIVE METABOLIC PANEL Lab Routine Controlled type 2 diabetes mellitus without complication, without long-term current use of insulin (HCC) Expected: 02/07/2025, Expires: 05/09/2025 [facility] Comment on above: Expected: 02/07/2025 , Expires: 05/09/2025 Start: 02-07-2025 End: 05-09-2025 Hemoglobin A1c in Blood HEMOGLOBIN A1C Lab Routine Controlled type 2 diabetes mellitus without complication, without long-term current use of insulin (HCC) Expected: 02/07/2025, Expires: 05/09/2025 [facility] Comment on above: Expected: 02/07/2025 , Expires: 05/09/2025 Start: 02-07-2025 End: 05-09-2025 LIPID PANEL, NONFASTING LIPID PANEL, NONFASTING Lab Routine Controlled type 2 diabetes mellitus without complication, without long-term current use of insulin (HCC) Expected: 02/07/2025, Expires: 05/09/2025 [facility] Comment on above: Expected: 02/07/2025 , Expires: 05/09/2025 Start: 02-07-2025 End: 05-09-2025 PSA/PROSTATE SPECIFIC ANTIGEN SCREENING PSA/PROSTATE SPECIFIC ANTIGEN SCREENING Lab Routine Prostate cancer (HCC) Expected: 02/07/2025, Expires: 05/09/2025 [facility] Comment on above: Expected: 02/07/2025 , Expires: 05/09/2025 Start: 02-07-2025 End: 05-09-2025 Urinalysis complete panel - Urine URINALYSIS, WITH MICROSCOPIC Lab Routine Frequency of urination and polyuria Expected: 02/07/2025, Expires: 05/09/2025 [facility] Comment on above: Expected: 02/07/2025 , Expires: 05/09/2025 Start: 02-07-2025 End: 02-07-2025 Patient encounter procedure 02/07/2025 11:20 AM EDT Office Visit [facility] [address] [place], [place] [id number] Marisol Ribeiro MD [address] [place], [place] [id number] Routine follow up- rescheduled from 09/20/24, 11/01 son called and r/s [facility] Comment on above: Routine follow up- r escheduled from 09/20/24, 11/01 son called and r/s Start: 12-29-2024 Covid-19 Vaccine () Covid-19 Vaccine () [facility] Start: 12-29-2024 Hemoglobin A1c measurement HbA1C [facility] Start: 11-14-2024 Hepatitis B surface antibody level LDL Cholesterol [facility] Start: 11-13-2024 Anxiety Screening Anxiety Screening [facility] Start: 11-13-2024 Depression Screening Depression Scre ening [facility] Start: 11-13-2024 Diabetic foot examination Diabetic Foot Exam [facility] Start: 08-30-2024 End: 08-30-2024 Patient encounter procedure 08/30/2024 10:40 AM EST Office Visit [facility] [address] [place] [address] Marisol Ribeiro MD [address] [place] [address] 4 week follow up [facility] Comment on above: 4 week follow up Start: 08-12-2024 End: 11-11-2024 Iron and Iron binding capacity panel - Serum or Plasma IRON AND TIBC Lab Routine Anemia, unspecified type Expected: 08/12/2024, Expires: 11/11/2024 [facility] Comment on above: Expected: 08/12/2024 , Expires: 11/11/2024 Start: 07-30-2024 End: 07-30-2024 Patient encounter procedure [facility] Comment on above: 1 month follow up 1 month follow up (l abs per Tegan Cox to complete) Start: 07-16-2024 Advance Directive Discussion Advance Directive Discussion [facility] Start: 07-16-2024 Medicare Advantage Annual Wellness Visit Medicare Advantage Annual Wellness Visit [facility] Start: 07-01-2024 End: 09-30-2024 Cobalamin (Vitamin B12) [Mass/volume] in Serum or Plasma VITAMIN B12 Lab Routine Anemia, unspecified type Expected: 07/01/2024, Expires: 09/30/2024 [facility] Work Phone: Comment on above: Expected: 07/01/2024 , Expires: 09/30/2024 Start: 07-01-2024 End: 09-30-2024 Ferritin [Mass/volume] in Serum or Plasma FERRITIN Lab Routine Anemia, unspecified type Expected: 07/01/2024, Expires: 09/30/2024 [facility] Comment on above: Expected: 07/01/2024 , Expires: 09/30/2024 Start: 07-01-2024 End: 09-30-2024 Folate [Mass/volume] in Serum or Plasma FOLATE, SERUM Lab Routine Anemia, unspecified type Expected: 07/01/2024, Expires: 09/30/2024 [facility] Comment on above: Expected: 07/01/2024 , Expires: 09/30/2024 Start: 06-30-2024 End: 09-29-2024 Comprehensive metabolic 2000 panel - Serum or Plasma [facility] Work Phone: Comment on above: Expected: 06/30/2024 , Expires: 09/29/2024 Start: 06-30-2024 End: 09-29-2024 Microalbumin/Creatinine [Mass Ratio] in Urine [facility] Comment on above: Expected: 06/30/2024 , Expires: 09/29/2024 Start: 05-17-2024 Hemoglobin A1c measurement HbA1C [facility] Start: 05-16-2024 Hepatitis B screening Urine Al bumin:Creatinine Ratio [facility] Start: 05-16-2024 End: 05-16-2024 Patient encounter procedure 05/16/2024 12:40 PM EDT Office Visit [facility] [address] [place] [address] PodTegan vega APRN.RIP SAWYER [address] [place] [address] 6 month follow up [facility] Comment on above: 6 month follow up Start: 11-15-2023 Hepatitis B surface antibody level LDL CHOLESTEROL [facility] Start: 11-14-2023 3 comp foot exam completed DIABETIC FOOT EXAM [facility] Start: 11-14-2023 End: 02-13-2024 Comprehensive metabolic 2000 panel - Serum or Plasma COMP METABOLIC PANEL Lab Routine Controlled type 2 diabetes mellitus without complication, without long-term current use of insulin (HCC) Expected: 11/14/2023, Expires: 02/13/2024 [facility] Work Phone: Comment on above: Expected: 11/14/2023 , Expires: 02/13/2024 Start: 11-14-2023 Diabetic foot examination Diabetic Foot Exam [facility] Start: 11-14-2023 End: 02-13-2024 Hemoglobin A1c in Blood HEMOGLOBIN A1C Lab Routine Controlled type 2 diabetes mellitus without complication, without long-term current use of insulin (HCC) Expected: 11/14/2023, Expires: 02/13/2024 [facility] Work Phone: Comment on above: Expected: 11/14/2023 , Expires: 02/13/2024 Start: 11-14-2023 Hemoglobin A1c measurement HbA1C [facility] Start: 11-14-2023 Hemoglobin A1c/Hemoglobin.total in Blood HbA1C [facility] Start: 11-14-2023 End: 02-13-2024 Lipid 1996 panel - Serum or Plasma LIPID PANEL BASIC Lab Routine ASHD (arteriosclerotic heart disease) Expected: 11/14/2023, Expires: 02/13/2024 [facility] Comment on above: Expected: 11/14/2023 , Expires: 02/13/2024 Start: 08-16-2023 Hemoglobin A1c/Hemoglobin.total in Blood HBA1C [facility] Start: 07-16-2023 Advance Directive Discussion Advance Directive Discussion [facility] Start: 07-16-2023 Behavioral Health Screening Behavioral Health Screening [facility] Start: 07-16-2023 Depression Assessment Depression Ass essment [facility] Start: 05-17-2023 Hemoglobin A1c/Hemoglobin.total in Blood HBA1C [facility] Start: 05-16-2023 End: 08-15-2023 ALBUMIN/CREAT RATIO RND UR [facility] Work Phone: Comment on above: Expected: 05/16/2023 , Expires: 08/15/2023 Start: 05-16-2023 End: 08-15-2023 Hemoglobin A1c in Blood [facility] Work Phone: Comment on above: Expected: 05/16/2023 , Expires: 08/15/2023 Start: 04-20-2023 Hepatitis B screening URINE AL BUMIN:CREATININE RATIO [facility] Start: 03-16-2023 Covid-19 Vaccine () Covid-19 Vaccine () [facility] Start: 03-16-2023 Influenza vaccination INFLUENZA (#1) [facility] Start: 03-11-2023 Glaucoma screening Dilated Retinal E xam [facility] Start: 03-11-2023 Hepatitis C antibody , confirmatory test DILATED RETINAL EXAM [facility] Start: 02-13-2023 End: 04-15-2023 Comprehensive metabolic 2000 panel - Serum or Plasma [facility] Work Phone: Comment on above: Expected: 02/13/2023 , Expires: 04/15/2023 Start: 02-13-2023 End: 04-15-2023 Hemoglobin A1c in Blood [facility] Work Phone: Comment on above: Expected: 02/13/2023 , Expires: 04/15/2023 Start: 11-13-2022 End: 01-13-2023 Comprehensive metabolic 2000 panel - Serum or Plasma COMP METABOLIC PANEL Lab Routine Controlled type 2 diabetes mellitus without complication, without long-term current use of insulin (HCC) Mixed hyperlipidemia Expected: 11/13/2022, Expires: 01/13/2023 [facility] Work Phone: Comment on above: Expected: 11/13/2022 , Expires: 01/13/2023 Start: 11-13-2022 End: 01-13-2023 Hemoglobin A1c in Blood HGB A1C Lab Routine Controlled type 2 diabetes mellitus without complication, without long-term current use of insulin (HCC) Expected: 11/13/2022, Expires: 01/13/2023 [facility] Work Phone: Comment on above: Expected: 11/13/2022 , Expires: 01/13/2023 Start: 11-13-2022 End: 01-13-2023 Lipid 1996 panel - Serum or Plasma LIPID PANEL BASIC Lab Routine Mixed hyperlipidemia Expected: 11/13/2022, Expires: 01/13/2023 [facility] Work Phone: Comment on above: Expected: 11/13/2022 , Expires: 01/13/2023 Start: 10-24-2022 Hemoglobin A1c/Hemoglobin.total in Blood HBA1C [facility] Start: 10-21-2022 COVID-19 VACCINE (6 - Moderna series) COVID-19 VACCINE (6 - Moderna series) [facility] Start: 10-18-2022 3 comp foot exam completed DIABETIC FOOT EXAM [facility] Start: 10-14-2022 Hepatitis B surface antibody level LDL CHOLESTEROL [facility] Start: 07-22-2022 End: 09-21-2022 Hemoglobin A1c in Blood HGB A1C Lab Routine Controlled type 2 diabetes mellitus without complication, without long-term current use of insulin (HCC) Expected: 07/22/2022, Expires: 09/21/2022 [facility] Work Phone: Comment on above: Expected: 07/22/2022 , Expires: 09/21/2022 Start: 07-21-2022 Hemoglobin A1c/Hemoglobin.total in Blood HBA1C [facility] Start: 07-16-2022 ADVANCE DIRECTIVE DISCUSSION ADVANCE DIRECTIVE DISCUSSION [facility] Start: 07-16-2022 DEPRESSION ASSESSMENT DEPRESSION ASS ESSMENT [facility] Start: 06-08-2022 Hepatitis C antibody , confirmatory test DILATED RETINAL EXAM [facility] Start: 04-19-2022 End: 06-19-2022 ALBUMIN/CREAT RATIO RND UR ALBUMIN/CREAT RATIO RND UR Lab Routine Controlled type 2 diabetes mellitus without complication, without long-term current use of insulin (HCC) Expected: 04/19/2022, Expires: 06/19/2022 [facility] Work Phone: Comment on above: Expected: 04/19/2022 , Expires: 06/19/2022 Start: 04-19-2022 End: 06-19-2022 CBC panel - Blood by Automated count CBC Lab Routine Controlled type 2 diabetes mellitus without complication, without long-term current use of insulin (HCC) Expected: 04/19/2022, Expires: 06/19/2022 [facility] Work Phone: Comment on above: Expected: 04/19/2022 , Expires: 06/19/2022 Start: 04-19-2022 End: 06-19-2022 Comprehensive metabolic 2000 panel - Serum or Plasma COMP METABOLIC PANEL Lab Routine Controlled type 2 diabetes mellitus without complication, without long-term current use of insulin (HCC) Expected: 04/19/2022, Expires: 06/19/2022 [facility] Work Phone: Comment on above: Expected: 04/19/2022 , Expires: 06/19/2022 Start: 04-19-2022 End: 06-19-2022 Hemoglobin A1c/Hemoglobin.total in Blood HGB A1C Lab Routine Controlled type 2 diabetes mellitus without complication, without long-term current use of insulin (HCC) Expected: 04/19/2022, Expires: 06/19/2022 [facility] Work Phone: Comment on above: Expected: 04/19/2022 , Expires: 06/19/2022 Start: 04-19-2022 Hepatitis B screening URINE AL BUMIN:CREATININE RATIO [facility] Start: 04-15-2022 Hemoglobin A1c/Hemoglobin.total in Blood HBA1C [facility] Start: 03-16-2022 Influenza vaccination INFLUENZA (Sea son Ended) [facility] Start: 02-23-2022 COVID-19 VACCINE (5 - Booster for Moderna series) COVID-19 VACCINE (5 - Booster for Moderna series) [facility] Start: 07-16-2021 ADVANCE DIRECTIVE DISCUSSION ADVANCE DIRECTIVE DISCUSSION [facility] Start: 07-16-2021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 future. Other and unspecified hyperlipidemia 04/10/2017 documented as of this encounter (statuses as of 11/14/2022) [facility] History of Past illness Narrative* Problem [...] 118 range. Patient's last HgA1C was HBA1C [place] (%) Date Value 05/09/2011 6.0 01/02/2011 6.0 Hemoglobin A1C (%) Date Value 04/08/2012 5.9 10/14/2004 6.4* ) Last Ophthalmology exam was a few years ago in [place], and he reported no problems. Will seek appointment with [facility] in the near future. Other and unspecified hyperlipidemia 04/10/2017 documented as of this encounter (statuses as of 11/20/2022) [facility] History of Past illness Narrative* Problem [...] 118 range. Patient's last HgA1C was HBA1C, [place] (%) Date Value 05/09/2011 6.0 01/02/2011 6.0 Hemoglobin A1C (%) Date Value 04/08/2012 5.9 10/14/2004 6.4* ) Last Ophthalmology exam was a few years ago in [place], and he reported no problems. Will seek appointment with [facility] in the near future. Other and unspecified hyperlipidemia 04/10/2017 documented as of this encounter (statuses as of 12/14/2022) [facility] History of Past illness Narrative* Problem [...] 118 range. Patient's last HgA1C was HBA1C [place] (%) Date Value 05/09/2011 6.0 01/02/2011 6.0 Hemoglobin A1C (%) Date Value 04/08/2012 5.9 10/14/2004 6.4* ) Last Ophthalmology exam was a few years ago in [place], and he reported no problems. Will seek appointment with [facility] in the near future. Other and unspecified hyperlipidemia 04/10/2017 documented as of this encounter (statuses as of 02/14/2023) [facility] of Past illness Narrative* Problem [...] 118 range. Patient's last HgA1C was HBA1C [place] (%) Date Value 05/09/2011 6.0 01/02/2011 6.0 Hemoglobin A1C (%) Date Value 04/08/2012 5.9 10/14/2004 6.4* ) Last Ophthalmology exam was a few years ago in [place], and he reported no problems. Will seek appointment with [facility] in the near future. Other and unspecified hyperlipidemia 04/10/2017 documented as of this encounter (statuses as of 02/14/2023) [facility] History of Past illness Narrative* Problem [...] exam was a few years ago in [place], and he reported no problems. Will seek appointment with [facility] in the near future. Other and unspecified hyperlipidemia 04/10/2017 documented as of this encounter (statuses as of 02/21/2023) [facility] of Past illness Narrative* Problem [...] exam was a few years ago in [place], and he reported no problems. Will seek appointment with [facility] in the near future. Other and unspecified hyperlipidemia 04/10/2017 documented as of this encounter (statuses as of 05/17/2023) [facility] of Past illness Narrative* Problem [...] 118 range. Patient's last HgA1C was PERCY [place] (%) Date Value 05/09/2011 6.0 01/02/2011 6.0 Hemoglobin A1C (%) Date Value 04/08/2012 5.9 10/14/2004 6.4* ) Last Ophthalmology exam was a few years ago in [place], and he reported no problems. Will seek appointment with [facility] in the near future. Other and unspecified hyperlipidemia 04/10/2017 documented as of this encounter (statuses as of 05/24/2023) [facility] History of Past illness Narrative* Problem [...] 118 range. Patient's last HgA1C was HBA1C [place] (%) Date Value 05/09/2011 6.0 01/02/2011 6.0 Hemoglobin A1C (%) Date Value 04/08/2012 5.9 10/14/2004 6.4* ) Last Ophthalmology exam was a few years ago in [place], and he reported no problems. Will seek appointment with [facility] in the near future. Other and unspecified hyperlipidemia 04/10/2017 documented as of this encounter (statuses as of 10/16/2023) [facility] History of Past illness Narrative* Problem [...] 118 range. Patient's last HgA1C was HBA1C, [place] (%) Date Value 05/09/2011 6.0 01/02/2011 6.0 Hemoglobin A1C (%) Date Value 04/08/2012 5.9 10/14/2004 6.4* ) Last Ophthalmology exam was a few years ago in [place], and he reported no problems. Will seek appointment with [facility] in the near future. Other and unspecified hyperlipidemia 04/10/2017 documented as of this encounter (statuses as of 10/25/2023) [facility] HospitalEval[facility]* Diagnosis Controlled type 2 diabetes mellitus without complication, without long-term current use of insulin (HCC)- Primary Prostate cancer (HCC) Malignant neoplasm of prostate ASHD (arteriosclerotic heart disease) Coronary atherosclerosis of unspecified type of vessel, [place] or graft SSS (sick sinus syndrome) (HCC) Sinoatrial node dysfunction Pacemaker Cardiac pacemaker in situ Primary hypertension Unspecified essential hypertension Mixed hyperlipidemia documented in this encounter [facility]* Diagnosis Controlled type 2 diabetes mellitus without complication, without long-term current use of insulin (HCC)- Primary Itchy skin Unspecified pruritic disorder Encounter for immunization Need for other specified prophylactic vaccination against single bacterial disease Mixed hyperlipidemia ASHD (arteriosclerotic heart disease) Coronary atherosclerosis of unspecified type of vessel, [place] or graft Pacemaker Cardiac pacemaker in situ Prostate cancer (HCC) Malignant neoplasm of prostate documented in this encounter [facility]* Diagnosis Controlled type 2 diabetes mellitus without complication, without long-term current use of insulin (HCC)- Primary ASHD (arteriosclerotic heart disease) Coronary atherosclerosis of unspecified type of vessel, [place] or graft Pacemaker Cardiac pacemaker in situ Prostate cancer (HCC) Malignant neoplasm of prostate documented in this encounter [facility]* Diagnosis Controlled type 2 diabetes mellitus without complication, without long-term current use of insulin (HCC)- Primary Diabetes mellitus type 2 (HCC) [facility] Diagnosis Left hip pain- Primary Pain in joint, pelvic region and thigh documented in this encounter [facility]* Diagnosis Left hip pain Pain in joint, pelvic region and thigh documented in this encounter [facility] note* Diagnosis Controlled type 2 diabetes mellitus without complication, without long-term current use of insulin (HCC)- Primary Mixed hyperlipidemia SSS (sick sinus syndrome) (HCC) Sinoatrial node dysfunction ASHD (arteriosclerotic heart disease) Coronary atherosclerosis of unspecified type of vessel, [place] or graft Pacemaker Cardiac pacemaker in situ documented in this encounter [facility] note* Diagnosis Controlled type 2 diabetes mellitus without complication, without long-term current use of insulin ([facility])- Primary Prostate cancer (HCC) Malignant neoplasm of prostate Mixed hyperlipidemia ASHD (arteriosclerotic heart disease) Coronary atherosclerosis of unspecified type of vessel, [place] or graft Sick sinus syndrome (HCC) Sinoatrial node dysfunction Pacemaker Cardiac pacemaker in situ documented in this encounter [facility] note* Diagnosis Controlled type 2 diabetes mellitus without complication, without long-term current use of insulin ([facility])- Primary Encounter for immunization Need for other specified prophylactic vaccination against single bacterial disease ASHD (arteriosclerotic heart disease) Coronary atherosclerosis of unspecified type of vessel, [place] or graft Prostate cancer (HCC) Malignant neoplasm of prostate Pacemaker Cardiac pacemaker in situ Sick sinus syndrome (HCC) Sinoatrial node dysfunction Fall, initial encounter [facility] Diagnosis Controlled type 2 diabetes mellitus without complication, without long-term current use of insulin ([facility])- Primary Sick sinus syndrome (HCC) Sinoatrial node dysfunction Prostate cancer (HCC) Malignant neoplasm of prostate ASHD (arteriosclerotic heart disease) Coronary atherosclerosis of unspecified type of vessel, [place] or graft Pacemaker Cardiac pacemaker in situ Statin declined Mixed hyperlipidemia Depression screening Screening for depression documented in this encounter [facility] note* Diagnosis 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, 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 as uncontrolled Bradycardia Other specified cardiac dysrhythmias Sleep apnea Unspecified sleep apnea HYPERLIPIDEMIA NEC/NOS Other and unspecified hyperlipidemia Hypertension Unspecified essential hypertension Need for prophylactic vaccination and inoculation against influenza Acute [place] anterior wall first episode care (HCC)- Primary [...] complication, without long-term current use of insulin ([facility]) Encounter for immunization Need for other specified prophylactic vaccination against single bacterial disease Candidal intertrigo Candidiasis of skin and nails Weight loss Loss of weight documented in this encounter [facility] note* Diagnosis 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, not stated as uncontrolled Bradycardia Other specified cardiac dysrhythmias Sleep apnea Unspecified sleep apnea HYPERLIPIDEMIA NEC/NOS Other and unspecified hyperlipidemia Hypertension Unspecified essential hypertension Need for prophylactic vaccination and inoculation against influenza Acute [place] anterior wall first episode care ([facility])- Primary Acute myocardial infarction of other anterior wall, initial episode of care Skin lesion of back Unspecified disorder of skin and subcutaneous tissue Bradycardia Other specified cardiac dysrhythmias SUMMARY DM w/o complication type I 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 of complication, not stated as uncontrolled Anemia, unspecified type- Primary documented in this encounter [facility] note* Diagnosis 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, not stated as uncontrolled Bradycardia Other specified cardiac dysrhythmias Sleep apnea Unspecified sleep apnea HYPERLIPIDEMIA NEC/NOS Other and unspecified hyperlipidemia Hypertension Unspecified essential hypertension Need for prophylactic vaccination and inoculation against influenza Acute [place] anterior wall first episode care ([facility])- Primary Acute myocardial infarction of [...] Anemia, unspecified type documented in this encounter [facility] noteNo assessment information availableSh[facility] Work Phone: Evaluation note* Diagnosis 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, not stated as uncontrolled Bradycardia Other specified cardiac dysrhythmias Sleep apnea Unspecified sleep apnea HYPERLIPIDEMIA NEC/NOS Other and unspecified hyperlipidemia Hypertension Unspecified essential hypertension Need for prophylactic vaccination and inoculation against influenza Acute [place] anterior wall first episode care (HCC)- Primary [...] Coronary atherosclerosis of unspecified type of vessel, [place] or graft Sick sinus syndrome (HCC) Sinoatrial node dysfunction Pacemaker Cardiac pacemaker in situ Prostate cancer (HCC) Malignant neoplasm of prostate Diarrhea, unspecified type Chronic bilateral low back pain with bilateral sciatica documented in this encounter [facility] (narrative)No reason for referral information availableBlhamilton [facility] Work Phone: Advance Directives No Advanced Directives Records FoundDocuments on File Type Date Recorded 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 Advance Directive(s) Advance Directive(s) 08/14/2016 2:29 PM Advance Directive Response Recorded Date/ Time Advance Directives No May 6:42am Living Will No September 02, 023 11:49am Power of Search And Rescue Officer No September 02, 2022 11:49am Advance Directive Response Recorded Date/ Time Advance Directives No May 7:42am Living Will No September 02, 023 12:49pm Power of Search And Rescue Officer No September 02, 2022 12:49pm Advance Directive Response Recorded Date/ Time Advance Directives No May 7:42am Living Will No January 30, 2023 1:21pm Power of Search And Rescue Officer No January 30 1:21pm Advance Directive Response Recorded Date/ Time Advance Directives No May 7:42am Advance Directive Response Recorded Date/ Time Living Will No December 10, 2023 1 1:16am Do you have a Healthcare Power of Search And Rescue Officer? No December 10, 2023 11:16am Advance Directives No May 7:42am Chief Complaint and Reason for Visit Chief Complaint 6 M FU HEART DISEASE OF INUPIAT CORONARY ARTERY HEART DISEASE OF INUPIAT CORONARY ARTERY 3 mos remote PPM f/u [...] HIGH COMPLEX 45 MINS Marisol Ribeiro MD [address] [place] [address] [facility] [address] [place] [address] Referral ID Status Reason Start Date Expiration Date Visits Requested Visits Authorized [id number] Pending Review Auto-Generat ed Referral 07/30/2024 07/30/2025 1 1 Summary Purpose Additional Source Comments Source Comments (unrecognize d section and content) In the event this informatio n is protected by the Federal Confidentiality of Alcohol and Drug Abuse Patient Records regulations: The Federal rules restrict any use of the information to criminally investigate or prosecute any alcohol or drug abuse patient.[facility] the event this information is protected by the Federal Confidentiality of Alcohol and Drug Abuse Patient Records regulations: The Federal rules restrict any use of the information to criminally investigate or prosecute any alcohol or drug abuse patient.[facility] HospitalIn the event this information is protected by the Federal Confidentiality of Alcohol and Drug Abuse Patient Records regulations: The Federal rules restrict any use of the information to criminally investigate or prosecute any alcohol or drug abuse patient.[facility] HospitalIn the event this information is protected by the Federal Confidentiality of Alcohol and Drug Abuse Patient Records regulations: The Federal rules restrict any use of the information to criminally investigate or prosecute any alcohol or drug abuse patient.[facility] HospitalIn the event this information is protected by the Federal Confidentiality of Alcohol and Drug Abuse Patient Records regulations: The Federal rules restrict any use of the information to criminally investigate or prosecute any alcohol or drug abuse patient.[facility] HospitalIn the event this information is protected by the Federal Confidentiality of Alcohol and Drug Abuse Patient Records regulations: The Federal rules restrict any use of the information to criminally investigate or prosecute any alcohol or drug abuse patient.[facility] HospitalIn the event this information is protected by the Federal Confidentiality of Alcohol and Drug Abuse Patient Records regulations: The Federal rules restrict any use of the information to criminally investigate or prosecute any alcohol or drug abuse patient.[facility] HospitalIn the event this information is protected by the Federal Confidentiality of Alcohol and Drug Abuse Patient Records regulations: The Federal rules restrict any use of the information to criminally investigate or prosecute any alcohol or drug abuse patient.[facility] HospitalIn the event this information is protected by the Federal Confidentiality of Alcohol and Drug Abuse Patient Records regulations: The Federal rules restrict any use of the information to criminally investigate or prosecute any alcohol or drug abuse patient.[facility] HospitalIn the event this information is protected by the Federal Confidentiality of Alcohol and Drug Abuse Patient Records regulations: The Federal rules restrict any use of the information to criminally investigate or prosecute any alcohol or drug abuse patient.[facility] HospitalIn the event this information is protected by the Federal Confidentiality of Alcohol and Drug Abuse Patient Records regulations: The Federal rules restrict any use of the information to criminally investigate or prosecute any alcohol or drug abuse patient.[facility] HospitalIn the event this information is protected by the Federal Confidentiality of Alcohol and Drug Abuse Patient Records regulations: The Federal rules restrict any use of the information to criminally investigate or prosecute any alcohol or drug abuse patient.[facility] HospitalIn the event this information is protected by the Federal Confidentiality of Alcohol and Drug Abuse Patient Records regulations: The Federal rules restrict any use of the information to criminally investigate or prosecute any alcohol or drug abuse patient.[facility] HospitalIn the event this information is protected by the Federal Confidentiality of Alcohol and Drug Abuse Patient Records regulations: The Federal rules restrict any use of the information to criminally investigate or prosecute any alcohol or drug abuse patient.[facility] HospitalIn the event this information is protected by the Federal Confidentiality of Alcohol and Drug Abuse Patient Records regulations: The Federal rules restrict any use of the information to criminally investigate or prosecute any alcohol or drug abuse patient.[facility] HospitalIn the event this information is protected by the Federal Confidentiality of Alcohol and Drug Abuse Patient Records regulations: The Federal rules restrict any use of the information to criminally investigate or prosecute any alcohol or drug abuse patient.[facility] HospitalIn the event this information is protected by the Federal Confidentiality of Alcohol and Drug Abuse Patient Records regulations: The Federal rules restrict any use of the information to criminally investigate or prosecute any alcohol or drug abuse patient.[facility] HospitalIn the event this information is protected by the Federal Confidentiality of Alcohol and Drug Abuse Patient Records regulations: The Federal rules restrict any use of the information to criminally investigate or prosecute any alcohol or drug abuse patient.[facility] HospitalIn the event this information is protected by the Federal Confidentiality of Alcohol and Drug Abuse Patient Records regulations: The Federal rules restrict any use of the information to criminally investigate or prosecute any alcohol or drug abuse patient.[facility] HospitalIn the event this information is protected by the Federal Confidentiality of Alcohol and Drug Abuse Patient Records regulations: The Federal rules restrict any use of the information to criminally investigate or prosecute any alcohol or drug abuse patient.[facility] HospitalIn the event this information is protected by the Federal Confidentiality of Alcohol and Drug Abuse Patient Records regulations: The Federal rules restrict any use of the information to criminally investigate or prosecute any alcohol or drug abuse patient.[facility] HospitalIn the event this information is protected by the Federal Confidentiality of Alcohol and Drug Abuse Patient Records regulations: The Federal rules restrict any use of the information to criminally investigate or prosecute any alcohol or drug abuse patient.[facility] HospitalIn the event this information is protected by the Federal Confidentiality of Alcohol and Drug Abuse Patient Records regulations: The Federal rules restrict any use of the information to criminally investigate or prosecute any alcohol or drug abuse patient.[facility] HospitalIn the event this information is protected by the Federal Confidentiality of Alcohol and Drug Abuse Patient Records regulations: The Federal rules restrict any use of the information to criminally investigate or prosecute any alcohol or drug abuse patient.[facility] HospitalIn the event this information is protected by the Federal Confidentiality of Alcohol and Drug Abuse Patient Records regulations: The Federal rules restrict any use of the information to criminally investigate or prosecute any alcohol or drug abuse patient.[facility] HospitalIn the event this information is protected by the Federal Confidentiality of Alcohol and Drug Abuse Patient Records regulations: The Federal rules restrict any use of the information to criminally investigate or prosecute any alcohol or drug abuse patient.[facility] HospitalIn the event this information is protected by the Federal Confidentiality of Alcohol and Drug Abuse Patient Records regulations: The Federal rules restrict any use of the information to criminally investigate or prosecute any alcohol or drug abuse patient.[facility] Reason for Visit (unrecogniz ed section and content) Reason Comments F/U 6 months Specialty Diagnoses / Procedures Referred By Oscar t Referred To Contact Family Practice / FAMILY MEDICINE Diagnoses 6 month f/up Procedures 4C EST Self Marisol Ribeiro MD [address] [place] [address] Referral ID Status Reason Start Date Expiration Date V isits Requested Visits Authorized [id number] Closed Patient Cleared INN/SMCP Payor Auth Obtained 10/18/2021 07/15/2022 1 1 Reason Comments 6 Month Exam Reason Comments Results Orders Reason Comments F/U 3 Month Reason Comments ER F/U [facility] 09/02/22 for left hip pain Reason Onset Date Comments Refill Request 11/08/2022 Reason Comments Results Reason Onset Date Comments Refill Request 12/14/2022 Reason Comments Follow Up Reason Comments Patient Update Reason Onset Date Comments Population Health Navigation Outreach 10/16/2023 [employer] care gaps Reason Onset Date Comments Refill Request 10/24/2023 Reason Comments ER F/U [facility] 03/04/24-[facility] d/c 06/21/24 Reason Comments Patient Update Patient Question Reason Comments Back Pain Reason Onset Date Comments Refill Request 08/26/2024 Reason Comments Patient Call Care Teams (unrecognized sec tion and content) Bundles Hanger Relationship Specialty Start Date End Date Marisol Ribeiro MD [address] [place] [address] PCP - General Family Practice 07/12/16 Bundles Hanger Relationship Specialty Start Date End Date Marisol Ribeiro MD [address] [place] [address] PCP - General Family Medicine 07/12/16 Bundles Hanger Relationship Specialty Start Date End Date Marisol Ribeiro MD [address] [place] [address] PCP - General Family Medicine 07/12/16 Bundles Hanger Relationship Specialty Start Date End Date Marisol Ribeiro MD [address] [place] [address] PCP - General Family Medicine 07/12/16 Bundles Hanger Relationship Specialty Start Date End Date Marisol Ribeiro MD [address] [facility] [place] [place] [address] PCP - General Family Medicine 07/12/16 Team Status: Active Member Role Status Dates No Primary Care Physician Family Provider Active Tegan Wing EMPLOYEE SERVICE OFFICER, EMPLOYEE SERVICE OFFICER-C Primary Care Provider Active Team Status: Inactive [...] Heck DO Emergency Provider Active Tegan Herreralogar EMPLOYEE SERVICE OFFICER, EMPLOYEE SERVICE OFFICER-C Primary Care Provider Active Bundles Hanger Relationship Specialty Start Date End Date Marisol Ribeiro MD [address] [place] [address] PCP - General Family Medicine 07/12/16 Team Status: Inactive Member Role Status Dates Dr. Jude Ribeiro MD Referring Provider Active Jamee Lamar Attending Provider Active Tegan Wing EMPLOYEE SERVICE OFFICER, EMPLOYEE SERVICE OFFICER-C Primary Care Provider Active Team Status: Inactive Member Role Status Dates Dr. Tr Heck DO Attending Provider, Emergency Brooke franco Active Tegan Herreralogar EMPLOYEE SERVICE OFFICER, EMPLOYEE SERVICE OFFICER-C Primary Care Provider Active Team Status: Inactive Member Role Status Dates Tegan Herreralogar EMPLOYEE SERVICE OFFICER, EMPLOYEE SERVICE OFFICER-C Primary Care Provider Active Haylee Foley EMPLOYEE SERVICE OFFICER-C Attending Provider, Referrin g Provider Active Bundles Hanger Relationship Specialty Start Date End Date Marisol Ribeiro MD [address] [place] [address] PCP - General Family Medicine 07/12/16 Bundles Hanger Relationship Specialty Start Date End Date Marisol Ribeiro MD [address] [place] [address] PCP - General Family Medicine 07/12/16 Bundles Hanger Relationship Specialty Start Date End Date Marisol Ribeiro MD [address] [place] [address] PCP - General Family Medicine 07/12/16 Team Status: Inactive Member Role Status Dates Dr. Jude Ribeiro MD Referring Provider Active Yuridia Gómez EMPLOYEE SERVICE OFFICER, EMPLOYEE SERVICE OFFICER-C Attending Provider Active Tegan Wing EMPLOYEE SERVICE OFFICER, EMPLOYEE SERVICE OFFICER-C Primary Care Provider Active Team Status: Inactive Member Role Status Dates Tegan Patricioar EMPLOYEE SERVICE OFFICER, EMPLOYEE SERVICE OFFICER-C Primary Care Provider, Referri ng Provider Active Jamee Lamar Attending Provider Active Team Status: Inactive Member Role Status Dates Tegan Herreralogar EMPLOYEE SERVICE OFFICER, EMPLOYEE SERVICE OFFICER-C Primary Care Provider Active Dr. Valdez Lopez , DO Emergency Provider Active Bundles Hanger Relationship Specialty Start Date End Date Marisol Ribeiro MD [address] [place] [address] PCP - General Family Medicine 07/12/16 Bundles Hanger Relationship Specialty Start Date End Date Marisol Ribeiro MD [address] [place] [address] PCP - General Family Medicine 07/12/16 Bundles Hanger Relationship Specialty Start Date End Date Marisol Ribeiro MD [address] [place] [address] PCP - General Family Medicine 07/12/16 Bundles Hanger Relationship Specialty Start Date End Date Marisol Ribeiro MD [address] [place] [address] PCP - General Family Medicine 07/12/16 Bundles Hanger Relationship Specialty Start Date End Date Marisol Ribeiro MD [address] [place] [address] PCP - General Family Medicine 07/12/16 Bundles Hanger Relationship Specialty Start Date End Date Marisol Ribeiro MD [address] [place] [address] PCP - General Family Medicine 07/12/16 Bundles Hanger Relationship Specialty Start Date End Date Marisol Ribeiro MD [address] [place] [address] PCP - General Family Medicine 07/12/16 Bundles Hanger Relationship Specialty Start Date End Date Marisol Ribeiro MD [address] [place] [address] PCP - General Family Medicine 07/12/16 Bundles Hanger Relationship Specialty Start Date End Date Marisol Ribeiro MD [address] [place] [address] PCP - General Family Medicine 07/12/16 Podlogar, Tegan, COMPONENT ASSEMBLER.RIP SAWYER [address] [place] [address] Payroll Clerk Family Medicine 06/21/24 Bundles Hanger Relationship Specialty Start Date End Date Marisol Ribeiro MD [address] [place] [address] PCP - General Family Medicine 07/12/16 Podlogar, Tegan, COMPONENT ASSEMBLER.RIP SAWYER [address] [place] [address] Payroll Clerk Family Medicine 06/21/24 Bundles Hanger Relationship Specialty Start Date End Date Marisol Ribeiro MD [address] [place] [address] PCP - General Family Medicine 07/12/16 Podlogar, Tegan, COMPONENT ASSEMBLER.RIP SAWYER [address] [place] [address] Payroll Clerk Family Medicine 06/21/24 Bundles Hanger Relationship Specialty Start Date End Date Marisol Ribeiro MD [address] [place] [address] PCP - General Family Medicine 07/12/16 Podlogar, Tegan, COMPONENT ASSEMBLER.RIP SAWYER [address] [place], [place] [address] Payroll Clerk Family Medicine 06/21/24 Bundles Hanger Relationship Specialty Start Date End Date Marisol Ribeiro MD [address] [place], [place] [address] PCP - General Family Medicine 07/12/16 PodlogarTegan APRN.RIP SAWYER [address] [place], [place] [address] Payroll Clerk Family Medicine 06/21/24 Team Status: Active Member Role/Relationship Status Dates No Primary Care Physician Family Provider Active Tegan Podlogar EMPLOYEE SERVICE OFFICER, EMPLOYEE SERVICE OFFICER-C Primary Care Provider Active Team Status: Inactive Member Role/Relationship Status Dates Tegan Podlogar EMPLOYEE SERVICE OFFICER, EMPLOYEE SERVICE OFFICER-C Primary Care Provider Active Start: October 16, 2024 End: October 16, 2024 Dr. Alcon Grajeda MD Attending Provider Active S tart: October 16, 2024 End: October 16, 2024 Team Status: Inactive Member Role/Relationship Status Dates Tegan Podlogangela EMPLOYEE SERVICE OFFICER, EMPLOYEE SERVICE OFFICER-C Primary Care Provider Active Start: January 14, 2025 End: January 14, 2025 Dr. Alcon Grajeda MD Attending Provider Active S tart: January 14, 2025 End: January 14, 2025 Bundles Hanger Relationship Specialty Start Date End Date Marisol Ribeiro MD [address], [place] [address] PCP - General Family Medicine 07/12/16 PodlogarTegan APRN.RIP SAWYER [address] [place], [place] [address] Payroll Clerk Family Medicine 06/21/24 Arianna Reis APRN.RIP SAWYER [address] [place], [place] [id number] [facility] 12/25/24 Bundles Hanger Relationship Specialty Start Date End Date Marisol Ribeiro MD [address] [place], [place] [address] PCP - General Family Medicine 07/12/16 Tegan Wing APRN.RIP SAWYER [address] [place], [place] [id number] [facility] 06/21/24 Arianna Reis APRN.RIP SAWYER [address] [place], [place] [id number] [facility] 12/25/24 Team Status: Active Member Role/Relationship Status Dates Tegan Podlogar EMPLOYEE SERVICE OFFICER, EMPLOYEE SERVICE OFFICER-C Primary Care Provider Active Team Status: Inactive Member Role/Relationship Status Dates Tegan Podlogar EMPLOYEE SERVICE OFFICER, EMPLOYEE SERVICE OFFICER-C Primary Care Provider Active Start: January 14, 2025 End: January 14, 2025 Dr. Alcon Grajeda MD Attending Provider Active S tart: January 14, 2025 End: January 14, 2025 Team Status: Inactive Member Role/Relationship Status Dates Tegan Podlogar EMPLOYEE SERVICE OFFICER, EMPLOYEE SERVICE OFFICER-C Primary Care Provider Active Start: February 24, 2025 End: February 24, 2025 Tegan Podlogar EMPLOYEE SERVICE OFFICER, EMPLOYEE SERVICE OFFICER-C Referring Provider Active Start: February 24, 2025 End: February 24, 2025 Jamee Lamar Attending Provider Active Start: A 2024 End: February 24, 2025 Team Status: Inactive Member Role/Relationship Status Dates Tegan Podlogar EMPLOYEE SERVICE OFFICER, EMPLOYEE SERVICE OFFICER-C Primary Care Provider Active Start: February 24, 2025 End: February 24, 2025 Dr. Alcon Grajeda MD Attending Provider Active S tart: February 24, 2025 End: February 24, 2025 Team Status: Inactive Member Role/Relationship Status Dates Tegan Podlogar EMPLOYEE SERVICE OFFICER, EMPLOYEE SERVICE OFFICER-C Primary Care Provider Active Start: February 24, 2025 End: February 24, 2025 Tegan Podlogar EMPLOYEE SERVICE OFFICER, EMPLOYEE SERVICE OFFICER-C Referring Provider Active Start: February 24, 2025 End: February 24, 2025 Jamee Lamar Attending Provider Active Start: A 2024 End: February 24, 2025 Team Status: Active Member Role/Relationship Status Dates Dr. Jude Ribeiro MD Primary care physician Act mahin Team Status: Inactive Member Role/Relationship Status Dates Tegan Podlogar EMPLOYEE SERVICE OFFICER, EMPLOYEE SERVICE OFFICER-C Primary care physician Active Start: January 14, 2025 End: January 14, 2025 Dr. Alcon Grajeda MD Attending physician Active Start: January 14, 2025 End: January 14, 2025 Team Status: Inactive Member Role/Relationship Status Dates Tegan Podlogar EMPLOYEE SERVICE OFFICER, EMPLOYEE SERVICE OFFICER-C Primary care physician Active Start: February 24, 2025 End: February 24, 2025 Dr. Alcon Grajeda MD Attending physician Active Start: February 24, 2025 End: February 24, 2025 Team Status: Inactive Member Role/Relationship Status Dates Tegan Podlogar EMPLOYEE SERVICE OFFICER, EMPLOYEE SERVICE OFFICER-C Primary care physician Active Start: February 24, 2025 End: February 24, 2025 Tegan Podlogar EMPLOYEE SERVICE OFFICER, EMPLOYEE SERVICE OFFICER-C Referring Provider Active Start: February 24, 2025 End: February 24, 2025 Dr. Alcon Grajeda MD Attending physician Active Start: February 24, 2025 End: February 24, 2025 Team Status: Inactive Member Role/Relationship Status Dates Tegan Podlogar EMPLOYEE SERVICE OFFICER, EMPLOYEE SERVICE OFFICER-C Referring Provider Active Start: April 09, 2025 [...] section and content) DATE CREATED AUTHOR 04/23/2025 [facility] DATE CREATED AUTHOR AUTHOR'S AMADEO ATION 05/24/2025 [facility] DATE CREATED AUTHOR AUTHOR'S ORGANIZ ATION 05/28/2025 [facility] FOR RECORDS PERTAINING TO PATIENTS WHO ARE [...] BE BASED ON THE PRIMARY CLINICAL RECORDS. [facility] [employer] [facility]. provides no warranty or guarantee of the accuracy or completeness of information in this document.
[2025-06-25 08:29] LABS: Hematocrit 31.1 % (40-54); Hemoglobin 10.8 g/dL (13.0-16.5); Mean Corp Hgb Conc 34.7 g/dL (32-36); Mean Corpuscular Volume 101.6 fL (80-94); Mean Platelet Vol. 9.4 fl (6.2-12.0); Platelet Count 217 K/mm3 (150-450); RBC Distribution Width CV 12.2 % (11.6-14.6); RBC Distribution Width SD 45.3 fl (35.1-43.9); Red Blood Count 3.06 M/mm3 (4.6-6.2); White Blood Count 4.0 K/mm3 (4.4-11.0)
[2025-06-25 09:11] LABS: Anion Gap 11 (5-15); BUN 13 mg/dL (4-19); BUN/Creat Ratio 16.3 RATIO (10-20); Calcium,Total 9.4 mg/dL (7.6-11.0); Carbon Dioxide 24.4 mmol/L (21.0-32.0); Chloride 103 mmol/L (98-108); Glucose 99 mg/dL (70-99); Magnesium 2.1 mg/dL (1.5-2.2); Potassium 4.4 mmol/L (3.3-5.1)
== END ==
LOC: OLS.SW 05:00
PROVIDERS: PCP Family Medicine; Visit Provider Internal Medicine
DX: E11.9 Type 2 diabetes mellitus without complications (principal)
CPT/HCPCS: 36415; 80048; 83735; 85027